=== PATIENT | male | born 1975 | race Caucasian/White ===

== ENCOUNTER 2017-02-12 18:55 | Emergency (ER) | payer MEDICAID ==
[~2017-02-12] VITALS: Ht 172.7 cm; Wt 108.9 kg
--- NOTE | 2017-02-12 19:28 | Urgent Treatment Center Report ---
History of Present Issue Date/Time Seen by Provider 02/12/171916 Visit Reason Pt arrived:Walked Presenting Problem:PT C/O A POSSIBLE ABSCESS ON HIS INNER THIGH THAT HAS AN ODOROUS DRAINAGE COMING FROM IT Location if Accident: Onset of symptoms date/time:/ or onset unknown for:MEDICAL HX UNKNOWN Have you (or family members/close friends) recently traveled outside the [place]? N If Yes, where/when: Have you had exposure to infectious disease within the past month? TB? Other? Specify: Here w/ concerned about an abscess right groin due to redness, drainage and foul odor. Reports "skin tag" to right lateral thigh "for many months". Dx as skin tag by previous PCP, Dr. Lowry in [place]. "He said it wasn't anything to worry about". Has since switched to Skylar Peguero APRN but has not seen her for the "skin tag" or these symptoms. "skin tag" is unchanged but area around it red, painful, w/ "foul smelling wetness" x 4-6 days. Denies fever. "just feels raw there". No treatment prior to arrival. Source patient Exam Limitations no limitations ALLERGIES Coded Allergies: Penicillins (10/08/16) acetaminophen (From DARVOCET-N 100) (10/08/16) aspirin (10/08/16) ibuprofen (From MOTRIN) (10/08/16) latex (10/08/16) naproxen (10/08/16) propoxyphene (From DARVOCET-N 100) (10/08/16) Uncoded Allergies: CLEAR TAPE (I-RASH 05/31/12) Home Medications Active Scripts ACETAMINOPHEN/DIPHENHYDRAMINE (Percogesic 325-12.5 MG Tablet) 1 TAB PO QIDP PRN pain #20 TAB Prov: 10/08/16 Cyclobenzaprine Hcl (Flexeril) 5 MG PO TIDP PRN pain #30 TAB Prov: 10/08/16 Clotrimazole (Athlete's Foot) 1 BENJAMIN TP BID #1 Ref 1 Prov: 08/27/16 Reported Medications Gabapentin (Gabapentin 600MG) 600 MG PO Q8 #90 Escitalopram Oxalate 10 MG PO PRN NERVES #30 LISINOPRIL (Lisinopril) 20 MG PO DAILY ALBUTEROL (Ventolin Hfa) 1 PUFF IH Q6H6 History Medical History General CAD? No Angina: No UT: No Hypertension? Yes Hyperlipidemia? No CHF? No DVT? No PE? No COPD? No Asthma? Yes Anemia? Yes GERD? Yes Gastric ulcers? No GI Bleed? No Hernia? No Thyroid Problems? No Hypothyroidism? No CVA? Yes Seizures? No Diabetes? No Insulin Dependent: No Insulin Pump: No Home FSBS? No Renal Insuffiency? No UTI? No Stones? No BPH? No GB Disease: No Nephritic Syndrome? No Asplenia? No Hepatitis? No Sickle Cell Disease? No Arthritis? Yes Migraines? No Cataracts? No Glaucoma? No MRSA? Yes HIV? No TB? No Anxiety? No Depression? No Cancer? No More? No Immunization HX DT/Tetanus 2011 Surgical Hx Previous Surgery?Y RECTAL CYST X2 JAW SURGERY BUTTOCK-CYSTS Dental Surgery UMBILICAL HERNIA REPAIR LEFT TESTICLE REMOVED Family History Family HX Diabetes Yes Hyperlipidemia Yes Cancer Yes Social History Smoking Hx Smoker: Current Every Day Smoker Tobacco: Yes Type Cigarettes Packs/day < 1 Pack Alcohol Alcohol: No Review of Systems All Other Systems Reviewed and Negative Constitutional see HPI, denies malaise Gastrointestinal denies abdominal pain, denies diarrhea, denies vomiting Genitourinary denies: discharge, dysuria, frequency. Musculoskeletal denies joint pain Skin see HPI Psychiatric/Neurological denies numbness, denies tingling Physical Exam Vital Signs Vital Signs Date Time Temp Pulse Resp B/P Pulse O2 O2 Flow FiO2 Ox Delivery Rate 02/12 1903 97.8 89 18 161/92 98 General Appearance no apparent distress, obese Respiratory Status No: respiratory distress. Cardiovascular no peripheral edema Extremities normal range of motion (BLE) Neurologic alert, no motor/sensory deficits Skin approx 0.5cm black skin tag right lateral thigh, nontender, no drainage; right groin redness, moisture, tenderness consistent w/ wayne; no swelling, no sign of cellulitis Lymphatic no adenopathy (r groin) Medical Decision Making LABS/Meds/Orders Pt receiving controlled substance in ED? No Departure Departure Time of Disposition 1923 Disposition DC Home or Self Care(routine) Clinical Impression Primary Impression: Skin candidiasis Secondary Impressions: Skin tag Condition STABLE Referrals SKYLAR PEGUERO APRN (Family) Schedule follow up appt for later this week or next week to sure improvement but also to discuss removing concerning skin lesion right lateral thigh. If she is unable to remove, discuss referral to dermatology. Patient Instructions DI for Yeast Infection-Skin Additional Instructions Wash w/ mild soapy water Pat dry. Be sure completely dry in skin fold Apply medication powder monitor Follow up with Skylar to ensure resolution but also to discuss removal of skin lesion Discharge Counseling Counseled pt/family regarding diagnosis, medications/RX, home care, follow up needs Prescriptions Current Visit Scripts NYSTATIN (Nystatin Topical Powder 30GM) 1 APPLIC TP TID #1 POW Ref 1 until redness resolved but no more then 7 days without follo w-up at 1935
[2017-02-12 19:40] VITALS: BP 161/92
--- OUTSIDE RECORDS SUMMARY | 2017-02-21 09:37 | External Medical Summary Rpt | CCD ---
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 02 YA OP 33 NA HE 2 N N 10 -3 25 CABRAL 53 04 04 0 14 7 CV 47 VE Ac LF 74 -0 -0 .0 S 83 NG ti AM 60 8- 8- 00 PH 38 US ve ET 27 20 20 AR WA HO 20 11 11 MA MY XA 5 CY ZO # NA LE RA -T 02 YA MP 33 NA 2 N DS TA BL ET 00 04 04 0 12 3 CV 47 VE Ac 40 -0 -0 .0 S 62 NG ti 60 1- 1- 00 PH 57 US ve 35 20 20 AR WA 70 11 11 MA MY 5 CY # NA RA 02 YA 33 NA 2 N 00 03 03 0 8. 4 CV 47 CE Ac 40 -2 -2 00 S 28 LL ti 60 3- 3- 0 PH 00 AR ve 35 20 20 AR OS 70 11 11 MA I 5 CY - # YO RB 02 A 33 PA 2 TR IC K M 00 03 03 0 5. 1 CV 46 SO Ac 40 -0 -0 00 S 57 DA ti 60 5- 5- 0 PH 06 ve 35 20 20 AR NA 70 11 11 MA WA 5 CY R # 02 33 2 GA 59 12 02 5 90 30 CV 43 MA Ac BA 76 -0 -2 .0 S 22 LI ti PE 25 3- 5- 00 PH 00 K ve NT 02 20 20 AR QUINTERO IN 70 10 11 MA MM 1 CY AD 30 # U 0 MG 02 33 CA 2 PS UL E 00 02 02 0 21 7 WA 99 MA Ac 07 -2 -2 .0 LG 38 CS ti 46 4- 4- 00 RE 3 WO ve [address] 01 11 11 S S, 3 #1 20 II 75 I # JA ME 12 S 07 R 5 00 02 02 0 4. 1 WA 99 MA Ac 09 -2 -2 00 LG 38 CS ti 50 4- 4- 0 RE 4 WO ve [address] 00 11 11 S S, 1 #1 20 II 75 I # JA ME 12 S 07 R 5 00 02 02 0 5. 1 CV 45 RA Ac 40 -1 -1 00 S 87 BI ti 60 5- 5- 0 PH 15 EE ve 35 20 20 AR 70 11 11 MA AB 5 CY DO # LR EZ 02 A 33 2 00 02 02 0 12 2 CV 45 MA Ac 09 -0 -0 .0 S 56 CS ti 50 8- 8- 00 PH 72 WO ve [address] 00 11 11 MA S, 1 CY # II I 02 JA 33 ME 2 S R GA 59 12 01 5 90 30 CV 43 MA Ac BA 76 -0 -2 .0 S 22 LI ti PE 25 3- 7- 00 PH 00 K ve NT 02 20 20 AR QUINTERO IN 70 10 11 MA MM 1 CY AD 30 # U 0 MG 02 33 CA 2 PS UL E 00 01 01 0 12 2 CV 45 MA Ac 09 -2 -2 .0 S 05 CS ti 50 5- 5- 00 PH 36 WO ve [address] 00 11 11 MA S, 1 CY # II I 02 JA 33 ME 2 S R 00 12 12 0 40 5 CV 44 MA Ac 09 -3 -3 .0 S 17 CS ti 50 1- 1- 00 PH 95 WO ve [address] 00 10 10 MA S, 1 CY # II I 02 JA 33 ME 2 S R GA 59 12 12 5 90 30 CV 43 MA Ac BA 76 -0 -3 .0 S 22 LI ti PE 25 3- 0- 00 PH 00 K ve NT 02 20 20 AR QUINTERO IN 70 10 10 MA MM 1 CY AD 30 # U 0 MG 02 33 CA 2 PS UL E 00 12 12 0 36 9 CV 43 SO Ac 09 -1 -1 .0 S 76 DA ti 50 9- 9- 00 PH 81 ve 24 20 20 AR NA 00 10 10 MA WA 1 CY R # 02 33 2 00 12 12 0 7. 2 CV 43 WE Ac 40 -0 -0 00 S 34 HR ti 60 6- 6- 0 PH 00 MA ve 35 20 20 AR N 70 10 10 MA II 5 CY I # WI LL 02 IA 33 M 2 E GA 59 12 12 5 90 30 CV 43 MA Ac BA 76 -0 -0 .0 S 22 LI ti PE 25 3- 3- 00 PH 00 K ve NT 02 20 20 AR QUINTERO IN 70 10 10 MA MM 1 CY AD 30 # U 0 MG 02 33 CA 2 PS UL E 59 11 11 0 10 2 KR 64 SO Ac 70 -1 -1 .0 OG 57 DA ti 20 9- 9- 00 ER 62 ve 65 20 20 4 NA 00 10 10 PH WA 1 AR R MA CY # 24 70 9 00 11 11 0 15 5 WA 72 SO Ac 37 -1 -1 .0 L- 21 DA ti 80 6- 6- 00 MA 15 ve 77 20 20 RT 9 NA 19 10 10 WA 3 PH R AR MA CY # 10 05 71 00 11 11 0 15 1 WA 72 SO Ac 09 -1 -1 .0 L- 21 DA ti 50 6- 6- 00 MA 15 ve 24 20 20 RT 8 NA 00 10 10 WA 1 PH R AR MA CY # 10 05 71 00 11 11 0 80 20 CV 42 HU Ac 09 -0 -0 .0 S 36 NT ti 50 9- 9- 00 PH 05 ve 24 20 20 AR TR 00 10 10 MA AV 1 CY IS # A 02 33 2 00 11 11 0 12 2 CV 42 SO Ac 09 -0 -0 .0 S 22 DA ti 50 5- 5- 00 PH 64 ve 24 20 20 AR NA 00 10 10 MA WA 1 CY R # 02 33 2 NA 00 10 10 0 20 10 CV 41 CE Ac WY 09 -2 -2 .0 S 86 LL ti OX 30 6- 6- 00 PH 00 AR ve EN 14 20 20 AR OS 90 10 10 MA I 50 5 CY - 0 # YO MG RB 02 A TA 33 PA BL 2 TR ET IC K M TR 00 07 07 0 20 5 CV 38 SW Ac AM 09 -1 -1 .0 S 36 EE ti AD 30 3- 3- 00 PH 29 NE ve OL 05 20 20 AR Y 80 10 10 MA GR HC 5 CY EG L # OR 50 Y 02 D MG 33 2 TA BL ET CABRAL 00 06 06 0 14 7 WI 33 HU Ac LF 60 -2 -2 .0 LS 80 BE ti AM 35 4- 4- 00 ON 09 R ve ET 78 20 20 JU HO [address] JONAS XA 8 UG A ZO M LE IN -T C MP DS TA BL ET DI 00 04 04 6. 6 CV 55 DA Ac FL - 00 S 26 ti UN 30 3- 3- 0 PH 00 S ve IS 75 20 20 AR WI AL 50 10 10 MA LL 6 CY IA 50 # M 0 S MG 03 01 TA 6 BL ET CE 68 04 04 20 5 CV 35 CH Ac PH 18 -0 -0 .0 S 32 ES ti AL 00 8- 8- 00 PH 73 TN ve EX 12 20 20 AR UT IN 20 10 10 MA 2 CY NM 50 # CH 0 AE MG 02 L 33 CA 2 PS UL E 00 04 04 14 2 CV 35 CH Ac 40 -0 -0 .0 S 32 ES ti 60 8- 8- 00 PH 72 TN ve 35 20 20 AR UT 70 10 10 MA 5 CY NM # CH AE 02 L 33 2 00 03 03 0 15 2 WI 32 WY Ac 59 -2 -3 .0 LS 99 CO ti 10 9- 0- 00 ON 36 FF ve 34 20 [address] RO 5 UG BE RT IN M C 00 03 03 0 9. 3 WI 32 ME Ac 59 -2 -2 00 LS 96 LV ti 10 7- 7- 0 ON 92 IL ve 34 20 20 LE [address] 5 UG DA NI IN EL C WY 00 03 03 0 12 4 WI 32 GR Ac OM 60 -2 -2 0. LS 93 AB ti ET 31 4- 4- 00 ON 18 QUINTERO ve QUINTERO 58 20 20 0 M ZI [address] DA NE 8 UG NA -D M IN SY C RU P WY 50 03 03 0 12 2 WI 32 PE Ac OM 38 -2 -2 0. LS 89 RE ti ET 30 0- 0- 00 ON 88 Z, ve QUINTERO 80 20 20 0 ZI [address] GOMEZ NE 6 UG ., -C OD IN DO EI C NE OS CA SY R RU O P 00 03 03 25 4 CV 34 DA Ac 40 -1 -1 .0 S 36 LE ti 60 1- 1- 00 PH 51 ve 35 20 20 AR II 70 10 10 MA 5 CY TH # OM 02 33 2 OX 00 03 03 0 10 2 WA 22 DA Ac YC 59 -0 -0 .0 L- 17 LE ti OD 10 6- 6- 00 MA 58 ve ON 93 20 20 RT 4 II -A 30 10 10 CE 1 PH TH TA AR OM NM MA NO CY PH # EN 10 7. 04 - 32 5 OX 00 02 02 0 10 2 WA 22 DA Ac YC 59 -2 -2 .0 L- 17 LE ti OD 10 8- 8- 00 MA 56 ve ON 93 20 20 RT 1 II -A 30 10 10 CE 1 PH TH TA AR OM NM MA NO CY PH # EN 10 7. 04 - 32 5 WY 50 02 02 00 12 4 WI 32 CE Ac OM 38 -1 -2 0. LS 54 LL ti ET 30 4- 6- 00 ON 28 AR ve QUINTERO 80 20 20 0 OS ZI [address] Zoë BRAN 6 UG - -C YO OD IN RB EI C A NE PA TR SY IC RU K P M 00 02 02 00 9. 3 WA 44 No Ac 40 -1 -2 00 L- 79 t ti 60 3- 6- 0 MA 37 Av ve 35 20 20 RT 0 ai 70 10 10 la 5 PH bl AR e MA CY #4 93 00 02 02 00 40 10 WI 32 HU Ac 07 -1 -2 .0 LS 51 BE ti 46 1- 6- 00 ON 49 R ve 32 20 20 JU [address] MCDANIEL 3 UG A M IN C CABRAL 53 11 12 00 20 10 WI 31 PE Ac LF 74 -1 -0 .0 LS 63 RE ti AM 60 7- 3- 00 ON 74 Z, ve ET 27 20 20 HO [address] GOMEZ XA 5 UG ., ZO LE IN DO -T C MP OS CA DS R O TA BL ET ME 59 07 07 00 21 6 WI 30 AH Ac TH 74 -1 -3 .0 LS 31 ME ti YL 60 7- 0- 00 ON 56 D ve WY 00 20 20 MU ED [address] QUINTERO NI 3 UG MM SO AD LO IN A NE C 4 MG DO SE PK AC 00 07 07 00 21 7 WI 30 AH Ac YC 09 -1 -3 .0 LS 31 ME ti LO 38 7- 0- 00 ON 55 D ve 94 20 20 MU R [address] QUINTERO 80 1 UG MM 0 AD MG IN A C TA BL ET HY 10 07 07 00 20 5 WI [address] 70 -1 -3 .0 LS 31 ME ti OX 20 7- 0- 00 ON 58 D ve YZ 01 20 20 MU IN [address] QUINTERO E 0 UG MM HC AD L IN A 25 C MG TA BL ET CABRAL 53 06 07 00 20 10 WI 30 DA Ac LF 74 -1 -0 .0 LS 00 LE ti AM 60 8- 2- 00 ON 20 ve ET 27 20 20 II HO [address] HELM 5 UG TH ZO OM LE IN -T C MP DS TA BL ET RI 00 06 06 00 20 10 WA 69 MO Ac FA 18 -0 -1 .0 L- 92 OR ti MP 50 6- 8- 00 MA 21 E ve IN 79 20 20 RT 1 NA 93 09 09 TH 30 0 PH AN 0 AR L MG MA CY CA PS #4 UL 93 E CE 00 06 06 00 20 5 WI 27 CH Ac PH 14 -0 -1 .0 LS 40 ES ti AL 39 9- 8- 00 ON 10 NU ve EX 89 20 20 T IN [address] ROBERTS 5 UG CH 50 AE 0 IN L MG C D CA PS UL E ME 50 05 05 00 12 6 WI 27 WI Ac TR 11 -1 -2 .0 LS 08 CK ti ON 10 07-11- 00 ON 12 ER ve ID 33 20 20 AZ [address] LEDESMA OL 1 UG FF E RE 50 IN Y 0 C MG TA BL ET EN 60 05 05 00 18 5 WI 27 RU Ac DO 95 -0 -2 .0 LS 00 SH ti CE 10 6- 1- 00 ON 55 ve T 70 20 20 NE 7. [address] ALCALA 5- 0 UG C 32 5 IN MG C TA BL ET CI 55 05 05 00 10 5 WI 27 WI Ac WY 11 -1 -2 .0 LS 08 CK ti OF 10 3- 1- 00 ON 13 ER ve LO 12 20 20 XA [address] LEDESMA CI 1 UG FF N RE HC IN Y L C 50 0 MG TA B CABRAL 53 04 05 00 28 7 WI 26 BL Ac LF 74 -2 -0 .0 LS 85 AK ti AM 60 3- 7- 00 ON 85 E ve ET 27 20 20 JA HO [address] ME XA 5 UG S ZO J LE IN -T C MP DS TA BL ET EN 60 04 05 00 15 4 WI 26 RU Ac DO 95 -2 -0 .0 LS 79 SH ti CE 10 0- 7- 00 ON 75 ve T 70 20 20 NE 7. [address] IL 5- 0 UG C 32 5 IN MG C TA BL ET 63 04 05 00 20 5 WI 26 BR Ac 30 -2 -0 .0 LS 85 OD ti 40 3- 7- 00 ON 86 SK ve 65 20 20 Y 70 09 09 KE 5 UG NN ET IN H C M EN 60 04 04 00 15 4 WI 26 RU Ac DO 95 -0 -2 .0 LS 65 SH ti CE 10 9- 3- 00 ON 83 ve T 70 20 20 NE 7. 07 09 09 IL 5- 0 UG C 32 5 IN MG C TA BL ET CL 63 03 04 00 21 7 WA 69 CH Ac IN 30 -2 -0 .0 L- 83 ES ti DA 40 6- 9- 00 MA 89 NU ve MY 69 20 20 RT 8 T CI 31 09 09 NM N 6 PH CH HC AR AE L MA L 30 CY D 0 MG #4 93 CA PS UL E CABRAL 53 04 04 00 28 7 WA 69 AB Ac LF 74 -0 -0 .0 L 63 HERNÁN ti AM 60 3- 9- 00 MA 48 TT ve ET 27 20 20 RT 6 HO 20 09 09 SA XA 5 PH RA ZO AR H LE MA P -T CY MP 10 DS -2 78 TA 3 BL ET 00 04 04 00 15 1 WA 44 RI Ac 40 -0 -0 .0 L 50 CH ti 60 3- 9- 00 MA 86 AR ve 35 20 20 RT 0 DS 70 09 09 ON 5 PH AR TYLER MA SE CY PH 10 -2 78 3 CE 68 04 04 00 20 5 WA 69 AB Ac PH 18 -0 -0 .0 L 63 HERNÁN ti AL 00 3- 9- 00 MA 48 TT ve EX 12 20 20 RT 5 IN 20 09 09 SA 1 PH RA 50 AR H 0 MA P MG CY CA 10 PS -2 UL 78 E 3 00 03 03 00 14 2 WA 44 WI Ac 40 -1 -2 .0 L- 72 LS ti 60 7- 6- 00 MA 63 ON ve 35 20 20 RT 6 70 09 09 RO 5 PH BE AR RT MA C CY #4 93 EN 60 03 03 00 20 3 CV 21 No Ac DO 95 -2 -2 .0 S 89 t ti CE 10 0- 6- 00 PH 80 Av ve T 60 20 20 AR ai 5- 27 09 09 MA la 32 0 CY bl 5 e TA 23 BL 32 ET 00 02 02 00 30 5 WA 44 No Ac 40 -0 -1 .0 L- 83 t ti 60 2- 2- 00 MA 38 Av ve 35 20 20 RT 9 ai 70 09 09 la 5 PH bl AR e MA CY #5 71 00 01 02 01 60 8 CV 19 VA Ac 40 -2 -1 .0 S 88 RG ti 60 0- 2- 00 PH 97 ve 35 20 20 AR H 70 09 09 MA D 5 CY 23 32 00 01 01 00 60 7 CV 19 VA Ac 40 -2 -3 .0 S 88 RG ti 60 0- 0- 00 PH 97 ve 35 20 20 AR H 70 09 09 MA D 5 CY 23 32 55 01 01 00 9. 30 CV 19 RA Ac 11 -0 -1 00 S 43 O ti 10 6- 5- 0 PH 91 PA ve 73 20 20 AR DM 70 09 09 MA A 9 CY G 23 32 00 01 01 00 30 7 CV 19 VA Ac 40 -0 -1 .0 S 51 RG ti 60 8- 5- 00 PH 50 ve 36 20 20 AR H 10 09 09 MA D 1 CY 23 32 OX 00 01 01 00 48 4 CV 19 No Ac YC 40 -0 -1 .0 S 48 t ti OD 60 7- 5- 00 PH 87 Av ve ON 51 20 20 AR ai E- 20 09 09 MA la AC 1 CY bl ET e AM 23 IN 32 OP HE N 5- 32 5 SK 60 01 01 00 30 10 CV 19 RA Ac EL 79 -0 -1 .0 S 43 O ti AX 30 6- 5- 00 PH 94 PA ve IN 13 20 20 AR DM 60 09 09 MA A 80 1 CY G 0 MG 23 32 TA BL ET AC 00 12 01 00 9. 3 WA 44 GA Ac ET 09 -1 -0 00 L- 72 IN ti AM 30 5- 1- 0 MA 89 EY ve IN 15 20 20 RT 2 OP 01 08 09 NM HE 0 PH CH N- AR AE CO MA L D CY S #3 #5 TA 91 BL ET 00 12 01 00 20 10 WA 69 GA Ac 17 -1 -0 .0 L- 99 IN ti 23 5- - 00 MA 89 EY ve 62 20 20 RT 7 64 08 09 NM 8 PH CH AR AE MA L CY S #5 91 DI 00 12 12 00 12 6 CV 18 AH Ac FL 09 -0 -1 .0 S 48 ME ti UN 30 6- 8- 00 PH 87 D ve IS 75 20 20 AR MU AL 50 08 08 MA QUNITERO 6 CY MM 50 AD 0 23 A MG 32 TA BL ET TR 00 12 12 00 12 4 CV 18 AH Ac AM 09 -0 -1 .0 S 48 ME ti AD 30 6- 8- 00 PH 85 D ve OL 05 20 20 AR MU 80 08 08 MA QUINTERO HC 5 CY MM L AD 50 23 A 32 MG TA BL ET 00 12 12 00 21 7 CV 18 AH Ac 07 -0 -1 .0 S 48 ME ti 46 6- 8- 00 PH 86 D ve 32 20 20 AR MU 11 08 08 MA QUINTERO 3 CY MM AD 23 A 32 Vital Signs 04-02-2013 16:10 Name Value Interpretat Reference Comment ion Range BP 123 mm[Hg] Diastolic BP Systolic 181 mm[Hg] Heart 82 /min Rate/Pulse O2% 94 % Respiratory 20 /min Rate 03-13-2013 02:54 Name Value Interpretat Reference Comment ion Range BP 112 mm[Hg] Diastolic BP Systolic 150 mm[Hg] Heart 80 /min Rate/Pulse O2% 98 % Respiratory 16 /min Rate 03-13-2013 02:52 Name Value Interpretat Reference Comment ion Range BP 112 mm[Hg] Diastolic BP Systolic 150 mm[Hg] Heart 80 /min Rate/Pulse O2% 98 % Respiratory 16 /min Rate 03-07-2013 17:05 Name Value Interpretat Reference Comment ion Range Body 98.3 [degF] Temperature BP 94 mm[Hg] Diastolic BP Systolic 147 mm[Hg] Heart 96 /min Rate/Pulse O2% 97 % Respiratory 20 /min Rate 01-30-2013 16:14 Name Value Interpretat Reference Comment ion Range BP 65 mm[Hg] Diastolic BP Systolic 139 mm[Hg] Heart 80 /min Rate/Pulse O2% 98 % Respiratory 19 /min Rate 11-03-2012 01:37 Name Value Interpretat Reference Comment ion Range BP 92 mm[Hg] Diastolic BP Systolic 140 mm[Hg] Heart 89 /min Rate/Pulse O2% 96 % Respiratory 20 /min Rate Results Labs Lab Lab Date Result Refere Interp Status Commen Order Detail nces retati t Range on UA Dipstick Pnl Ur (12-27-2016 22:50) Urobili 0.2 0.2 - complet nogen 017 E.U./dL 1.0 ed Ur Ql 22:50 E.U./dL Strip Nitrite [id number] Negativ complet Ur Ql 017 09 e ed Strip 22:50 Negativ e SCT Leukocy [id number] Negativ complet te 017 09 e ed esteras 22:50 Negativ e Ur Ql e SCT Strip.a uto Prot Ur [id number] Negativ complet Ql 017 09 e ed Strip 22:50 Negativ e SCT Hgb Ur [id number] Negativ complet Ql 017 09 e ed Strip.a 22:50 Negativ uto e SCT Bilirub [id number] Negativ complet Ur Ql 017 09 e ed Strip 22:50 Negativ e SCT Ketones [id number] Negativ complet Ur Ql 017 09 e ed Strip 22:50 Negativ e SCT Glucose [id number] Negativ complet Ur 017 09 e ed Strip-m 22:50 Negativ Cnc e SCT Sp Gr 1.010 1.001-1 complet Ur 017 .030 ed Strip 22:50 pH Ur 6.0 5.0-8.0 complet Strip.a 017 ed uto 22:50 Clarity [id number] Clear complet Ur 017 01 ed 22:50 Clear SCT Color [id number] Yellow, complet Ur 017 09 Straw ed 22:50 Yellow color SCT Comp Metab 1998 Pnl SerPl (12-27-2016 22:38) Anion -3.0 3.0-11. complet Gap3 017 mmol/L 0 ed SerPl-s 22:38 Cnc BUN/Cre 12.5 7.0-25. complet at 017 0 ed SerPl 22:38 Albumin 1.5 1.5-2.5 complet /Glob 017 g/dL ed SerPl 22:38 Globuli 2.9 complet n Ur 017 gm/dL ed Elph-mC 22:38 nc GFR/BSA 108 >60 complet .pred 017 mL/min/ ed SerPl 22:38 1.73 MDRD-Ar VRat Bilirub 0.4 0.3-1.2 complet 017 mg/dL ed SerPl-m 22:38 Cnc ALP 78 U/L 25-100 complet SerPl-c 017 ed Cnc 22:38 AST 35 U/L 0-33 complet SerPl-c 017 ed Cnc 22:38 ALT 66 U/L 7-40 complet SerPl w 017 ed 22:38 P-5'-P- cCnc Albumin 4.40 3.20-4. complet 017 g/dL 80 ed SerPl-m 22:38 Cnc Prot 7.3 5.7-8.2 complet SerPl-m 017 g/dL ed Cnc 22:38 Calcium 9.6 8.7-10. complet 017 mg/dL 4 ed XXX-sCn 22:38 c CO2 30.0 20.0-31 complet SerPl-s 017 mmol/L .0 ed Cnc 22:38 Chlorid 112 99-109 complet e 017 mmol/L ed SerPl-s 22:38 Cnc Potassi 3.6 3.5-5.5 complet um 017 mmol/L ed Bld-sCn 22:38 c Sodium 139 132-146 complet Bld-sCn 017 mmol/L ed c 22:38 Creat 0.80 0.60-1. complet Bld-mCn 017 mg/dL 30 ed c 22:38 BUN 10 9-23 complet Bld-mCn 017 mg/dL ed c 22:38 Glucose 112 70-100 complet 017 mg/dL ed Bld-mCn 22:38 c CBC W Diff pnl,unspecified Bld (12-27-2016 22:38) WBC 10.95 3.50-10 complet nRBC 017 10*3/mm .80 ed cor # 22:38 3 Bld Imm 08-17-2 0.02 0.00-0. complet Granulo 017 10*3/mm 03 ed cytes # 22:38 3 Bld Basophi 08-17-2 0.04 0.00-0. complet ls # 017 10*3/mm 20 ed Bld 22:38 3 Auto Eosinop 08-17-2 0.13 0.00-0. complet hil # 017 10*3/mm 30 ed Bld 22:38 3 Auto Monocyt 08-17-2 0.87 0.00-1. complet es # 017 10*3/mm 00 ed Bld 22:38 3 Auto Lymphoc 08-17-2 2.62 0.60-4. complet ytes # 017 10*3/mm 80 ed Bld 22:38 3 Auto Neutrop 08-17-2 7.27 1.50-8. complet hils # 017 10*3/mm 30 ed Bld 22:38 3 Auto Imm 08-17-2 0.2 % 0.0-0.6 complet Granulo 017 ed cytes/l 22:38 euk NFr Bld Basophi 08-17-2 0.4 % 0.0-1.0 complet ls/leuk 017 ed NFr 22:38 Bld Auto Eosinop 08-17-2 1.2 % 0.0-3.0 complet hil/ru 017 ed k NFr 22:38 Bld Auto Monocyt 08-17-2 7.9 % 0.0-12. complet es/leuk 017 0 ed NFr 22:38 Bld Auto Lymphoc 08-17-2 23.9 % 24.0-44 complet ytes/le 017 .0 ed uk NFr 22:38 Bld Auto Neutrop 08-17-2 66.4 % 41.0-71 complet hils/le 017 .0 ed uk NFr 22:38 Bld Auto Platele 08-17-2 182 150-450 complet t # Bld 017 10*3/mm ed Auto 22:38 3 PMV Bld 08-17-2 10.7 fL 6.0-12. complet Auto 017 0 ed 22:38 RDW RBC 08-17-2 39.5 fl 37.0-54 complet Auto 017 .0 ed 22:38 RDW RBC 12-27-2 12.2 % 11.3-14 complet 017 .5 ed Auto-Rt 22:38 o MCHC 36.5 32.0-36 complet RBC 017 g/dL .0 ed Auto-mC 22:38 nc MCH RBC 32.7 pg 27.0-31 complet Qn 017 .0 ed Auto 22:38 MCV RBC 89.7 fL 80.0-99 complet Auto 017 .0 ed 22:38 Hct VFr 41.7 % 38.9-50 complet Bld 017 .9 ed Auto 22:38 Hgb 15.2 13.1-17 complet Bld-mCn 017 g/dL .5 ed c 22:38 RBC # 12-27-2 4.65 4.20-5. complet Bld 017 10*6/mm 76 ed Auto 22:38 3 Troponin I SerPl-mCnc (12-27-2016 22:38) Troponi < 0.006 <=0.039 complet n I 017 ng/mL ed SerPl-m 22:38 Cnc LPL SerPl-cCnc (12-27-2016 22:38) Lipase 31 U/L 6-51 complet SerPl-c 017 ed Cnc 22:38 STREP SCREEN (RAPID) (04-02-2013 15:40) STREP NEGATIV complet SCREEN 013 E ed (RAPID) 15:40 URINALYSIS/COMPLETE (11-03-2012 01:07) URINE -24-2 YELLOW YELLOW complet COLOR 013 ed 01:07 URINE -24-2 CLEAR CLEAR complet APPEARA 013 ed NCE 01:07 URINE -24-2 NEGATIV NEG complet GLUCOSE 013 E ed - 01:07 DIPSTIC K URINE -24-2 NEGATIV NEG complet BILIRUB 013 E ed IN - 01:07 DIPSTIC K URINE -24-2 NEGATIV NEG complet KETONE 013 E mg/dL ed 01:07 URINE 06-24-2 1.020 1.005-1 complet SPECIFI 013 UNK .030 ed C 01:07 GRAVITY URINE -24-2 NEGATIV NEG complet BLOOD 013 E ed 01:07 URINE 06-24-2 7.0 UNK 5.0-8.5 complet PH 013 ed 01:07 URINE 24-2 NEGATIV NEG complet PROTEIN 013 E mg/dL ed - 01:07 DIPSTIC K URINE 24-2 1.0 NEG complet UROBILI 013 E.U./dL ed NOGEN - 01:07 DIPSTIC K URINE 24-2 NEGATIV NEG complet NITRATE 013 E ed - 01:07 DIPSTIC K URINE 24-2 NEGATIV NEG complet LEUK 013 E ed ESTERAS 01:07 E URINE 24-2 TRACE NONE complet AMORPH 013 ed SEDIMEN 01:07 T Procedures Procedure DOS Code Location Performer Comment DRUG TST G0483 LAB [facility] DEFINITV [address] ID [facility] METH P DAY 22/MORE DR CL DRUG TEST 47769 [facility] PRSMV 7 [facility] CHEMISTRY ANALYZERS CUL BACT [id number] [facility] AEROBIC 7 [facility] ADDL [facility] METHS DEFINITIV E EA ISOL CULTURE 38158 LAB [facility] T[facility] BACTERIAL 7 [place] [facility] HOLDINGS QUANTTATI VE COLONY COUNT URINE CULTURE 49814 LAB T[facility] LAB TIGRE BCT 7 [facility] ISOL&PRSM [facility] HOLDINGS PTV ID ISOLATE EA URINE SUSCEPTIB 82136 LAB T[facility] LAB TIGRE LTY STDY 7 [facility] ANTIMICRB [facility]INGS HOLDINGS IAL MICRO/AGA R DILUTJ RADEX HIP 47909 RAMÓN MLEGAR 7 [facility] UNILATERA INC INC L WITH PELVIS 2-3 VIEWS RADEX 33889 RAMÓN MELGAR SPINE 7 [facility] LUMBOSACR INC INC AL MINIMUM [address] UPPER 24995 [facility] [place] MASTERS EXTREMITY 7 RADIOLOGY W/O CONTRAST MATERIAL RADIOLOGI 30147 RAMÓN MELGAR C 7 [facility] EXAMINATI INC INC ON CHEST SINGLE VIEW FRONTAL RADIOLOGI 36115 RAMÓN MELGAR C 7 [facility] EXAMINATI INC INC ON NECK SOFT TISSUE RADEX 20878 RAMÓN RAMÓN ABDOMEN 1 7 [facility] [place] [address] GRACIE GARCIAS SCROTUM & 7 [facility] CONTENTS SERV FOUNDATIO N DUP-SCAN 35548 GRACIE GARCIAS ARTL RAIZA 7 MED[facility] CORIE ABDL/PEL/ SERV SCROT&/RP FOUNDATIO R ORGN N COM ECG 09134 JENNIFER GRUBER ROUTINE 7 PHYSICIAN ECG PRACTICE W/LEAST L 12 LDS W/I&R LIPID 08409 LAB T[facility]RE LAB TIGRE PANEL 7 [place] [facility] ALBUMIN 17590 LAB T[facility]RE LAB TIGRE URINE 7 [facility]EL [facility]EL MICROALBU [facility]INGS HOLDINGS MIN QUANTIATI VE ALBUMIN 01692 JENNIFER GRUBER URINE 7 PHYSICIAN MICROALBU PRACTICE MIN L SEMIQUANT ITATIVE COMPREHEN 11088 LAB T[facility] LAB TIGRE SIVE 7 [place]EL [place]EL METABOLIC [facility] HOLDINGS PANEL COLLECTIO 09630 JENNIFER GRUBER N VENOUS 7 PHYSICIAN BLOOD PRACTICE VENIPUNCT L URE CREATININ 29923 LAB T[facility] LAB TIGRE E OTHER 7 VEL VEL SOURCE [facility]INGS HOLDINGS RADEX 46363 [facility] [place] TRISH ABDOMEN 1 7 RADIOLOGY ANTEROPOS TERIOR VIEW COMPREHEN 46150 [facility] [place] SIVE 6 [facility] METABOLIC E E PANEL [facility] BLOOD 59235 [facility] COUNT 6 [facility]CAR COMPLETE E E AUTO&AUTO [facility] DIFRNTL WBC ONDANSETR Q0162 [facility] ON 1 MG 6 [facility] ORL NOT E E EXCEED 48 [facility] [address] [facility] LIPASE 6 [facility] [place] [address] [facility] LIPASE 6 [facility] BLOOD 84207 [facility] COUNT 6 [facility] COMPLETE E E AUTO&AUTO [facility] DIFRNTL WBC COMPREHEN 19637 [facility] SIVE 6 [facility]ALTH[facility] METABOLIC E [place] [address] [facility] LACTATE 6 [facility] INJECTION J1100 [facility] 6 [facility]ALTH[facility]ALTHCAR DEXAMETHO E E [facility]ONE [facility] SOD[place] [address] [place] [address] [facility] ABDOMEN & 6 MEDICAL CORIE PELVIS SERV [place] [address] [facility] ABDOMEN & 6 N N PELVIS COMMUNTIY COMMUNTIY W/O HOSPITA HOSPITA CONTRAST MATERIAL DRUG TST G0477 RAMÓN MELGAR PRESUMP;C 6 [facility] PBL BEING INC [place] [address] [facility] [place] [facility] 6 [facility] PATHOLOGY GROSS&CONCHIS ROSCOPIC EXAM ORCHIECTO 10511 [facility] MY SIMPLE 6 [place] KIEL ADULT & SCROTAL/I PED NGUINAL APPROACH ANESTHESI 46064 [place] HAI ROLO A MALE 6 ANESTHESI GENITALIA A GROUP INCL PS OPEN URETHRAL PX ECG 98412 RAMÓN MELGAR ROUTINE 6 [facility] ECG INC INC W/LEAST 12 LDS TRCG ONLY W/O I&R URNLS DIP 74352 RAMÓN MELGAR 6 [facility] STICK/TAB INC INC LET REAGENT AUTO MICROSCOP Y COMPREHEN 19631 RAMÓN MELGAR SIVE 6 [facility] METABOLIC INC INC PANEL BLOOD 20612 RAMÓN MELGAR COUNT 6 [facility] COMPLETE INC INC AUTO&AUTO DIFRNTL WBC ECG 03261 RAMÓN EWING ROUTINE 6 [facility] W/LEAST P 12 LDS I&R ONLY CULTURE 14691 RAMÓN MELGAR BACTERIAL 6 [facility] INC INC QUANTTATI VE COLONY COUNT URINE COLLECTIO 48159 RAMÓN MELGAR N VENOUS 6 [facility] BLOOD INC INC VENIPUNCT URE PROSTATE [id number] [facility] SCREENING [facility] INC ; PSA TEST COLLECTIO 49655 [facility] N VENOUS 6 [facility] [place] [address] RAMÓN MELG[facility] PROLACTIN 6 [place] [address] RAM[facility]N MEL[facility] TESTOSTER 6 [facility] ONE TOTAL INC INC GONADOTRO 35740 [facility] PIN 6 [facility] LUTEINIZI INC INC NG HORMONE DRUG TST G0477 RAMÓN RAMÓN PRESUMP;C 6 [facility] PBL BEING INC INC READ DC OPT OBV ONLY URNLS DIP 80502 [facility] STICK/TAB INC INC LET REAGENT AUTO MICROSCOP Y BLOOD 54143 RAMÓNLENIN MELGAR COUNT 6 [facility] COMPLETE INC INC AUTO&AUTO DIFRNTL WBC COMPREHEN 15519 [facility] SIVE 6 [facility] [place] [address] [facility]N MELG[facility] ABDOMEN & 6 [facility] PELVIS INC INC W/O CONTRAST MATERIAL IMER 01866 [facility] POST-VOID 6 [place] [facility] ING ADULT & RESIDUAL PED URINE&/BL ADDER CAP CYSTO 31374 [facility] CALIBRATI 6 [place] [facility] ON DILAT ADULT & URTL PED STRIX/HEIDI NOSIS SIMPLE 98351 [facility] CYSTOMETR 6 [place] [facility] OGRAM ADULT & PED COMPLEX 96396 [facility] UROFLOMET 6 [facility] RY ADULT & ADULT & PED PED DRUG TST G0477 [facility] LI PRESUMP;C 6 [place] [facility] PBL BEING ADULT & READ DC PED OPT OBV ONLY URNLS DIP 81133 [facility] STICK/TAB INC INC LET REAGENT AUTO MICROSCOP Y ADMN SET A7003 JANEL ISLAS VOL 6 HOME HOME NONFILTR MEDICAL MEDICAL PNEUMAT EQUIPME EQUIPME NEBULIZR DISPBL THERAPEUT 36099 [facility] IC 5 Y Y [facility] TIC/DX INJECTION SUBQ/IM URNLS DIP 83488 [facility] 5 [facility] STICK/TAB INC INC [place] [address] RAM[facility]N MEL[facility] LIPASE 5 [facility] INC INC COMPREHEN 46571 [facility] SIVE 5 [facility] METABOLIC INC INC PANEL BLOOD 21111 RAM[facility]N MELG[facility] COUNT 5 [facility] COMPLETE INC INC AUTO&[place] [address] RAMÓN MELGAR AMYLASE 5 [facility] [place] [address] RAM[facility]EL[facility]BDOMEN & [facility] P[facility] INC W/O CONTRAST MATERIAL RADIOLOGI 14425 SHEBA SUÁREZINEKE C 5 MEDICAL IVANNA EXAMINATI IMAGING ON EYE ASS DETECT FOREIGN BODY 3D 26919 [facility]BA [place] RENDERING 5 MEDICAL MARIO W/INTERP IMAGING & ASS POSTPROCE SS SUPERVISI ON MRI 25642 SHEBA [place] SPINAL 5 MEDICAL MARIO CANAL IMAGING LUMBAR ASS W/O CONTRAST MATERIAL RADEX 91833 [facility]N MEL[facility] ORBITS [facility] COM[facility] INC MINIMUM 4 VIEWS HEMOGLOBI 49964 RAMÓN MELG[facility] N [facility] GLYCOSYLA INC INC THERESA A1C BASIC 24793 RAM[facility]N MELGAR METABOLIC 5 [facility] PANEL INC INC CALCIUM TOTAL COLLECTIO 26441 RAM[facility]N MELGAR N VENOUS [facility] [place] [address] RAMÓN MELGAR FREE 5 [facility] [place] [address] RAMÓN MELG[facility] THYROID [facility] STIMULATI INC INC NG HORMONE TSH RADEX 55144 SHEBA [place] FINGR 5 MEDICAL MARIO MINIMUM 2 IMAGING VIEWS ASS RADIOLOGI 31598 SHEBA [place] C 4 MEDICAL MARIO EXAMINATI IMAGING [place] [address] SHEBA [place] ABDOMEN & 4 MEDICAL MARIO PELVIS IMAGING W/O ASS CONTRAST MATERIAL RADIOLOGI 42135 SHEBA [place] C 4 MEDICAL MARIO EXAMINATI IMAGING ON PELVIS ASS 1/2 VIEWS RADEX 68789 SHEBA [place] SPINE 4 MEDICAL MARIO LUMBOSACR IMAGING AL ASS MINIMUM 4 VIEWS RADIOLOGI 44011 SHEBA [place] C EXAM 4 MEDICAL MARIO CHEST 2 IMAGING VIEWS ASS FRONTAL&L ATERAL KNEE L1830 [employer] ORTHOSIS 4 IMMOBLIZE R CANVAS LONGTUDNL PREFAB RADEX 63750 RAMÓN MELGAR SHOULDER 4 [facility] COMPLETE INC INC MINIMUM 2 VIEWS INCISION 83895 KANDI MILES & 4 [place] [address] SIMI [place]TH ABDOMEN & 4 PELVIS W/O CONTRAST MATERIAL ADMN SET A7003 YOUR YOUR SM VOL 4 PHARMACY PHARMACY [facility] PNEUMAT NEBULIZR DISPBL NEBULIZER E0570 JANEL ISLAS WITH 4 HOME HOME COMPRESSO MEDICAL MEDICAL R EQUIPME EQUIPME LIPID 85903 RAMÓN MELGAR PANEL 3 [place] [address] RAMÓN MELGAR THYROXINE 3 [facility] TOTAL INC INC HEMOGLOBI 61255 RAMÓN MELGAR N 3 [facility] GLYCOSYLA INC INC THERESA A1C BLOOD 00078 RAMÓN MELG[facility] COUNT 3 [facility] COMPLETE INC INC AUTO&AUTO DIFRNTL WBC COMPREHEN 87129 RAMÓN MELGAR SIVE 3 [facility] [place] [address] RAMÓN MELGAR THYROID 3 [facility] STIMULATI INC INC NG HORMONE TSH RADEX 36321 KOSTELIC KOSTELIC SPINE 3 VINICIO VINICIO LUMBOSACR AL 2/3 VIEWS SIMPLE 49226 YARIEL RODRIGUEZ MAR REPAIR 3 EMERGENCY SCALP/NEC SERVICES K/AX/MAIRA T/TRUNK 2.5CM/< [place] [address] SIMI [place] ABDOMEN & 3 PELVIS W/O CONTRAST MATERIAL URNLS DIP 78721 [facility] MEL[facility] 3 [facility] STICK/TAB INC INC LET REAGENT AUTO MICROSCOP Y RADIOLOGI 96919 MARIBELL REYNA C C EXAM 2 CHEST 2 VIEWS FRONTAL&L ATERAL RADIOLOGI 24635 [facility] [place] MASTERS C EXAM 2 RADIOLOGY JOSHUA CHEST 2 VIEWS FRONTAL&L ATERAL RADEX 47874 [facility] [place] JAY HAND 2 RADIOLOGY LIZA MINIMUM 3 VIEWS RADEX 46366 [facility] [place] TRISH HAND 2 RADIOLOGY RHO MINIMUM 3 VIEWS RADEX TOE 40018 SHEBA SEGALUTCHER MINIMUM 2 MEDICAL MARIO [address] [place] [address] [facility] [place] ABDOMEN & 2 RADIOLOGY RAY PELVIS W/O CONTRAST MATERIAL 3D 07255 RAMÓN MELGAR RENDERING 2 [facility] INC INC W/INTERP& [place] [address] RAMÓN MELGAR ABDOMEN & 2 [facility] PELVIS INC INC W/O CONTRAST MATERIAL URNLS DIP 28216 RAMÓN MELGAR 2 [facility] STICK/TAB INC INC LET REAGENT AUTO MICROSCOP Y BASIC 90986 RAMÓN MELGAR METABOLIC 2 [facility] PANEL INC INC CALCIUM TOTAL BLOOD 96991 RAMÓN MELG[facility] COUNT 2 [facility] COMPLETE INC INC AUTO&AUTO DIFRNTL WBC RADIOLOGI 53050 [facility] [place] OMAR MAT C 2 RADIOLOGY EXAMINATI ON KNEE 3 [place] [address] [facility] [place] OMAR MAT SCROTUM & 2 RADIOLOGY CONTENTS DUP-SCAN 36148 [facility] [place] SIMI [place] ARTL RAIZA 2 RADIOLOGY ABDL/PEL/ SCROT&/RP R ORGN LMT RADEX 78527 [facility] [place] OMAR GE FINGR 2 RADIOLOGY MINIMUM 2 VIEWS RADEX 33920 [place] GERALD JAM HAND 2 MEDICAL MINIMUM 3 SERV VIEWS FOUNDATIO RADEX 99574 [facility] [place] SCALF CLEMENTINE HAND 2 RADIOLOGY MINIMUM 3 [place] [address] RAMÓN MELGAR SCROTUM & 2 [facility] CONTENTS INC INC URNLS DIP 59277 RAMÓN MELGAR 2 [facility] STICK/TAB INC INC LET REAGENT AUTO MICROSCOP Y RADEX 80286 [place] SPINE 2 [facility] AL 2/[address] LUMBAR 27263 [place] MERHAR SPINE 2 MEDICAL GAR W/O SERV CONTRAST FOUNDATIO MATERIAL RADEX 84470 [facility] [place] TRISH HAND 2 RADIOLOGY RHO MINIMUM 3 VIEWS SIMPLE 81659 CHACON CHACON REPAIR 2 JULIO JULIO SCALP/NEC K/AX/MAIRA T/TRUNK 2.5CM/< INCISION 02167 RAMÓN MELGAR & 2 [facility] DRAINAGE INC INC ABSCESS SIMPLE/SI NGLE INCISION 92205 YARIEL MATTHEW & 2 EMERGENCY CONCHIS DRAINAGE SERVICES ABSCESS COMPLICAT ED/MULTIP LE CUL BACT 50087 RAMÓN MELGAR XCPT 2 [facility] URINE INC INC BLOOD/STO OL AEROBIC ISOL CUL BACT 78534 RAMÓN MELG[facility] AEROBIC 2 [facility] ADDL INC INC METHS DEFINITIV E EA ISOL SUSCEPTIB 59976 RAMÓN MELGAR LTY STDY 2 [facility] ANTIMICRB INC INC IAL MICRO/AGA R DILUTJ RADEX 19819 [facility] SPINE 2 N N LUMBOSACR COMMUNTIY COMMUNTIY AL 2/3 HOSPITA HOSPITA VIEWS RADEX 77196 [place] CELE SPINE 2 MEDICAL MARIO LUMBOSACR IMAGING AL ASS MINIMUM 4 VIEWS RADEX 33586 [facility] [place] OMAR MAT FINGR 2 RADIOLOGY MINIMUM 2 VIEWS APPLICATI 15043 DANNIELLE SPICER ON FINGER 1 ABD ABD SPLINT DYNAMIC WRIST L3807 TOBIAS [facility] HAND 1 SHARI [place] FINGR ORTHOPAED ORTHOS IC W/O JNT PREFAB CSTM FIT RADEX 01724 [facility] [place] OMAR MAT HAND 1 RADIOLOGY MINIMUM 3 VIEWS RADEX 00680 [place] DISANTIS HAND 1 MEDICAL REMINGTON MINIMUM 3 SERV VIEWS FOUNDATIO RADEX 90860 [place] CELE ANKLE 1 MEDICAL MRAIO COMPLETE IMAGING MINIMUM 3 ASS VIEWS CHIROPRAC 26260 ESCALANTE JULIO ESCALANTE JULIO TIC 1 MANIPLTV TX EXTRASPIN AL 1/> REGION MANUAL 35563 ESCALANTE JULIO ESCALANTE JULIO THERAPY 1 TQS 1/> REGIONS EACH 15 MINUTES APPLICATI 17720 ESCALANTE JULIO ESCALANTE JULIO ON 1 MODALITY 1/> AREAS HOT/COLD PACKS THERAPEUT 27181 ESCALANTE JULIO ESCALANTE JULIO IC PX 1/> 1 AREAS EACH 15 MIN EXERCISES APPL 42145 ESCALANTE JULIO ESCALANTE JULIO MODALITY 1 1/> AREAS ELEC STIMJ UNATTENDE D APPL 78685 ESCALANTE JULIO ESCALANTE JULIO MODALITY 1 1/> AREAS TRACTION MECHANICA L CHIROPRAC 20222 ESCALANTE JULIO ESCALANTE JULIO TIC 1 MANIPULAT [place] SPINAL 3-4 REGIONS MANUAL 64300 ESCALANTE JULIO ESCALANTE JULIO THERAPY 1 TQS 1/> REGIONS EACH 15 MINUTES APPL 63077 ESCALANTE JULIO ESCALANTE JULIO MODALITY 1 1/> AREAS TRACTION MECHANICA L CHIROPRAC 82005 ESCALANTE JULIO ESCALANTE JULIO TIC 1 MANIPULAT [place] SPINAL 3-4 REGIONS APPLICATI 64730 ESCALANTE JULIO ESCALANTE JULIO ON 1 MODALITY 1/> AREAS HOT/COLD PACKS THERAPEUT 35255 ESCALANTE JULIO ESCALANTE JULIO IC PX 1/> 1 AREAS EACH 15 MIN EXERCISES CHIROPRAC 05172 ESCALANTE JULIO ESCALANTE JULIO TIC 1 MANIPLTV TX EXTRASPIN AL 1/> REGION APPL 16638 ESCALANTE JULIO ESCALANTE JULIO MODALITY 1 1/> AREAS ELEC STIMJ UNATTENDE D CHIROPRAC 72917 ESCALANTE JULIO ESCALANTE JULIO TIC 1 MANIPLTV TX EXTRASPIN AL 1/> REGION MANUAL 84081 ESCALANTE JULIO ESCALANTE JULIO THERAPY 1 TQS 1/> REGIONS EACH 15 MINUTES APPLICATI 06708 ESCALANTE JULIO ESCALANTE JULIO ON 1 MODALITY 1/> AREAS HOT/COLD PACKS THERAPEUT 10826 ESCALANTE JULIO ESCALANTE JULIO IC PX 1/> 1 AREAS EACH 15 MIN EXERCISES APPL 79657 ESCALANTE JULIO ESCALANTE JULIO MODALITY 1 1/> AREAS TRACTION MECHANICA L APPL 65381 ESCALANTE JULIO ESCALANTE JULIO MODALITY 1 1/> AREAS ELEC STIMJ UNATTENDE D CHIROPRAC 91917 ESCALANTE JULIO ESCALANTE JULIO TIC 1 MANIPULAT [place] SPINAL 3-4 REGIONS MANUAL 46014 ESCALANTE JULIO ESCALANTE JULIO THERAPY 1 TQS 1/> REGIONS EACH 15 MINUTES APPL 81547 ESCALANTE JULIO ESCALANTE JULIO MODALITY 1 1/> AREAS TRACTION MECHANICA L CHIROPRAC 09998 ESCALANTE JULIO ESCALANTE JULIO TIC 1 MANIPULAT [place] SPINAL 3-4 REGIONS APPLICATI 98490 ESCALANTE JULIO ESCALANTE JULIO ON 1 MODALITY 1/> AREAS HOT/COLD PACKS THERAPEUT 88663 ESCALANTE JULIO ESCALANTE JULIO IC PX 1/> 1 AREAS EACH 15 MIN EXERCISES CHIROPRAC 50709 ESCALANTE JULIO ESCALANTE JULIO TIC 1 MANIPLTV TX EXTRASPIN AL 1/> REGION APPL 10842 ESCALANTE JULIO ESCALANTE JULIO MODALITY 1 1/> AREAS ELEC STIMJ UNATTENDE D APPL 22784 ESCALANTE JULIO ESCALANTE JULIO MODALITY 1 1/> AREAS ELEC STIMJ UNATTENDE D CHIROPRAC 32937 ESCALANTE JULIO ESCALANTE JULIO TIC 1 MANIPLTV TX EXTRASPIN AL 1/> REGION APPLICATI 80055 ESCALANTE JULIO ESCALANTE JULIO ON 1 MODALITY 1/> AREAS HOT/COLD PACKS THERAPEUT 58883 ESCALANTE JULIO ESCALANTE JULIO IC PX 1/> 1 AREAS EACH 15 MIN EXERCISES APPL 15770 ESCALANTE JULIO ESCALANTE JULIO MODALITY 1 1/> AREAS TRACTION MECHANICA L MANUAL 60754 ESCALANTE JULIO ESCALANTE JULIO THERAPY 1 TQS 1/> REGIONS EACH 15 MINUTES CHIROPRAC 50451 ESCALANTE JULIO ESCALANTE JULIO TIC 1 MANIPULAT [place] SPINAL 3-4 REGIONS CHIROPRAC 56564 ESCALANTE JULIO ESCALANTE JULIO TIC 1 MANIPULAT [place] SPINAL 3-4 REGIONS APPL 04049 ESCALANTE JULIO ESCALANTE JULIO MODALITY 1 1/> AREAS TRACTION MECHANICA L APPL 11056 ESCALANTE JULIO ESCALANTE JULIO MODALITY 1 1/> AREAS ELEC STIMJ UNATTENDE D THERAPEUT 81142 ESCALANTE JULIO ESCALANTE JULIO IC PX 1/> 1 AREAS EACH 15 MIN EXERCISES APPLICATI 11621 ESCALANTE JULIO ESCALANTE JULIO ON 1 MODALITY 1/> AREAS HOT/COLD PACKS MANUAL 75839 ESCALANTE JULIO ESCALANTE JULIO THERAPY 1 TQS 1/> REGIONS EACH 15 MINUTES CHIROPRAC 55425 ESCALANTE JULIO ESCALANTE JULIO TIC 1 MANIPLTV TX EXTRASPIN AL 1/> REGION CHIROPRAC 36940 ESCALANTE JULIO ESCALANTE JULIO TIC 1 MANIPLTV TX EXTRASPIN AL 1/> REGION MANUAL 47020 ESCALANTE JULIO ESCALANTE JULIO THERAPY 1 TQS 1/> REGIONS EACH 15 MINUTES APPLICATI 78431 ESCALANTE JULIO ESCALANTE JULIO ON 1 MODALITY 1/> AREAS HOT/COLD PACKS THERAPEUT 11998 ESCALANTE JULIO ESCALANTE JULIO IC PX 1/> 1 AREAS EACH 15 MIN EXERCISES APPL 24002 ESCALANTE JULIO ESCALANTE JULIO MODALITY 1 1/> AREAS ELEC STIMJ UNATTENDE D APPL 77466 ESCALANTE JULIO ESCALANTE JULIO MODALITY 1 1/> AREAS TRACTION MECHANICA L CHIROPRA 68389 ESCALANTE JULIO ESCALANTE JULIO TIC 1 MANIPULAT [place] SPINAL 3-4 REGIONS CHIROPRA 82899 ESCALANTE JULIO ESCALANTE JULIO TIC 1 MANIPULAT [place] SPINAL 3-4 REGIONS APPL 38151 ESCALANTE JULIO ESCALANTE JULIO MODALITY 1 1/> AREAS TRACTION MECHANICA L APPL 34978 ESCALANTE JULIO ESCALANTE JULIO MODALITY 1 1/> AREAS ELEC STIMJ UNATTENDE D THERAPEUT 54196 ESCALANTE JULIO ESCALANTE JULIO IC PX 1/> 1 AREAS EACH 15 MIN EXERCISES APPLICATI 99935 ESCALANTE JULIO ESCALANTE JULIO ON 1 MODALITY 1/> AREAS HOT/COLD PACKS MANUAL 60354 ESCALANTE JULIO ESCALANTE JULIO THERAPY 1 TQS 1/> REGIONS EACH 15 MINUTES CHIROPRA 05773 ESCALANTE JULIO ESCALANTE JULIO TIC 1 MANIPLTV TX EXTRASPIN AL 1/> REGION CHIROPRAC 22537 ESCALANTE JULIO ESCALANTE JULIO TIC 1 MANIPLTV TX EXTRASPIN AL 1/> REGION APPL 23189 ESCALANTE JULIO ESCALANTE JULIO MODALITY 1 1/> AREAS ELEC STIMJ UNATTENDE D THERAPEUT 65969 ESCALANTE JULIO ESCALANTE JULIO IC PX 1/> 1 AREAS EACH 15 MIN EXERCISES APPLICATI 11896 ESCALANTE JULIO ESCALANTE JULIO ON 1 MODALITY 1/> AREAS HOT/COLD PACKS APPL 40728 ESCALANTE JULIO ESCALANTE JULIO MODALITY 1 1/> AREAS TRACTION MECHANICA L CHIROPRAC 92709 ESCALANTE JULIO ESCALANTE JULIO TIC 1 MANIPULAT [place] SPINAL 3-4 REGIONS MANUAL 88486 ESCALANTE JULIO ESCALANTE JULIO THERAPY 1 TQS 1/> REGIONS EACH 15 MINUTES MANUAL 35352 ESCALANTE JULIO ESCALANTE JULIO THERAPY 1 TQS 1/> REGIONS EACH 15 MINUTES CHIROPRAC 81004 ESCALANTE JULIO ESCALANTE JULIO TIC 1 MANIPULAT [place] SPINAL 3-4 REGIONS APPL 51473 ESCALANTE JULIO ESCALANTE JULIO MODALITY 1 1/> AREAS TRACTION MECHANICA L APPLICATI 50518 ESCALANTE JULIO ESCALANTE JULIO ON 1 MODALITY 1/> AREAS HOT/COLD PACKS THERAPEUT 78930 ESCALANTE JULIO ESCALANTE JULIO IC PX 1/> 1 AREAS EACH 15 MIN EXERCISES APPL 30984 ESCALANTE JULIO ESCALANTE JULIO MODALITY 1 1/> AREAS ELEC STIMJ UNATTENDE D CHIROPRAC 70235 ESCALANTE JULIO ESCALANTE JULIO TIC 1 MANIPLTV TX EXTRASPIN AL 1/> REGION CHIROPRAC 95158 ESCALANTE JULIO ESCALANTE JULIO TIC 1 MANIPLTV TX EXTRASPIN AL 1/> REGION APPL 88897 ESCALANTE JULIO ESCALANTE JULIO MODALITY 1 1/> AREAS ELEC STIMJ UNATTENDE D THERAPEUT 71515 ESCALANTE JULIO ESCALANTE JULIO IC PX 1/> 1 AREAS EACH 15 MIN EXERCISES APPLICATI 18848 ESCALANTE JULIO ESCALANTE JULIO ON 1 MODALITY 1/> AREAS HOT/COLD PACKS APPL 79517 ESCALANTE JULIO ESCALANTE JULIO MODALITY 1 1/> AREAS TRACTION MECHANICA L CHIROPRAC 60149 ESCALANTE JULIO ESCALANTE JULIO TIC 1 MANIPULAT [place] SPINAL 3-4 REGIONS MANUAL 66598 ESCALANTE JULIO ESCALANTE JULIO THERAPY 1 TQS 1/> REGIONS EACH 15 MINUTES CHIROPRAC 73258 ESCALANTE JULIO ESCALANTE JULIO TIC 1 MANIPULAT [place] SPINAL 3-4 REGIONS APPL 22567 ESCALANTE JULIO ESCALANTE JULIO MODALITY 1 1/> AREAS TRACTION MECHANICA L APPL 08689 ESCALANTE JULIO ESCALANTE JULIO MODALITY 1 1/> AREAS ELEC STIMJ UNATTENDE D APPLICATI 67073 ESCALANTE JULIO ESCALANTE JULIO ON 1 MODALITY 1/> AREAS HOT/COLD PACKS THERAPEUT 47296 ESCALANTE JULIO ESCALANTE JULIO IC PX 1/> 1 AREAS EACH 15 MIN EXERCISES MANUAL 10824 ESCALANTE JULIO ESCALANTE JULIO THERAPY 1 TQS 1/> REGIONS EACH 15 MINUTES CHIROPRAC 40535 ESCALANTE JULIO ESCALANTE JULIO TIC 1 MANIPLTV TX EXTRASPIN AL 1/> REGION CHIROPRA 59230 ESCALANTE JULIO ESCALANTE JULIO TIC 1 MANIPLTV TX EXTRASPIN AL 1/> REGION MANUAL 53542 ESCALANTE JULIO ESCALANTE JULIO THERAPY 1 TQS 1/> REGIONS EACH 15 MINUTES THERAPEUT 76012 ESCALANTE JULIO ESCALANTE JULIO IC PX 1/> 1 AREAS EACH 15 MIN EXERCISES APPLICATI 85264 ESCALANTE JULIO ESCALANTE JULIO ON 1 MODALITY 1/> AREAS HOT/COLD PACKS APPL 66096 ESCALANTE JULIO ESCALANTE JULIO MODALITY 1 1/> AREAS ELEC STIMJ UNATTENDE D APPL 58871 ESCALANTE JULIO ESCALANTE JULIO MODALITY 1 1/> AREAS TRACTION MECHANICA L CHIROPRAC 99055 ESCALANTE JULIO ESCALANTE JULIO TIC 1 MANIPULAT [place] SPINAL 3-4 REGIONS CHIROPRAC 04381 ESCALANTE JULIO ESCALANTE JULIO TIC 1 MANIPULAT [place] SPINAL 3-4 REGIONS APPL 44761 ESCALANTE JULIO ESCALANTE JULIO MODALITY 1 1/> AREAS TRACTION MECHANICA L APPL 24525 ESCALANTE JULIO ESCALANTE JULIO MODALITY 1 1/> AREAS ELEC STIMJ UNATTENDE D APPLICATI 79384 ESCALANTE JULIO ESCALANTE JUILO ON 1 MODALITY 1/> AREAS HOT/COLD PACKS THERAPEUT 34572 ESCALANTE JULIO ESCALANTE JULIO IC PX 1/> 1 AREAS EACH 15 MIN EXERCISES MANUAL 72744 ESCALANTE JULIO ESCALANTE JULIO THERAPY 1 TQS 1/> REGIONS EACH 15 MINUTES CHIROPRAC 98057 ESCALANTE JULIO ESCALANTE JULIO TIC 1 MANIPLTV TX EXTRASPIN AL 1/> REGION CHIROPRAC 62067 ESCALANTE JULIO ESCALANTE JULIO TIC 1 MANIPLTV TX EXTRASPIN AL 1/> REGION APPL 69928 ESCALANTE JULIO ESCALANTE JULIO MODALITY 1 1/> AREAS ELEC STIMJ UNATTENDE D THERAPEUT 78718 ESCALANTE JULIO ESCALANTE JULIO IC PX 1/> 1 AREAS EACH 15 MIN EXERCISES APPLICATI 87483 ESCALANTE JULIO ESCALANTE JULIO ON 1 MODALITY 1/> AREAS HOT/COLD PACKS APPL 77122 ESCALANTE JULIO ESCALANTE JULIO MODALITY 1 1/> AREAS TRACTION MECHANICA L CHIROPRAC 88973 ESCALANTE JULIO ESCALANTE JULIO TIC 1 MANIPULAT [place] SPINAL 3-4 REGIONS MANUAL 35870 ESCALANTE JULIO ESCALANTE JULIO THERAPY 1 TQS 1/> REGIONS EACH 15 MINUTES MANUAL 55771 ESCALANTE JULIO ESCALANTE JULIO THERAPY 1 TQS 1/> REGIONS EACH 15 MINUTES CHIROPRA 30034 ESCALANTE JULIO ESCALANTE JULIO TIC 1 MANIPULAT [place] SPINAL 3-4 REGIONS APPL 63064 ESCALANTE JULIO ESCALANTE JULIO MODALITY 1 1/> AREAS TRACTION MECHANICA L APPLICATI 17245 ESCALANTE JULIO ESCALANTE JULIO ON 1 MODALITY 1/> AREAS HOT/COLD PACKS THERAPEUT 39155 ESCALANTE JULIO ESCALANTE JULIO IC PX 1/> 1 AREAS EACH 15 MIN EXERCISES APPL 58675 ESCALANTE JULIO ESCALANTE JULIO MODALITY 1 1/> AREAS ELEC STIMJ UNATTENDE D CHIROPRAC 03850 ESCALANTE JULIO ESCALANTE JULIO TIC 1 MANIPLTV TX EXTRASPIN AL 1/> REGION CHIROPRAC 47591 ESCALANTE JULIO ESCALANTE JULIO TIC 1 MANIPLTV TX EXTRASPIN AL 1/> REGION APPL 61209 ESCALANTE JULIO ESCALANTE JULIO MODALITY 1 1/> AREAS ELEC STIMJ UNATTENDE D THERAPEUT 68148 ESCALANTE JULIO ESCALANTE JULIO IC PX 1/> 1 AREAS EACH 15 MIN EXERCISES APPLICATI 92513 ESCALANTE JULIO ESCALANTE JULIO ON 1 MODALITY 1/> AREAS HOT/COLD PACKS APPL 45127 ESCALANTE JULIO ESCALANTE JULIO MODALITY 1 1/> AREAS TRACTION MECHANICA L CHIROPRAC 83546 ESCALANTE JULIO ESCALANTE JULIO TIC 1 MANIPULAT [place] SPINAL 3-4 REGIONS MANUAL 75241 ESCALANTE JULIO ESCALANTE JULIO THERAPY 1 TQS 1/> REGIONS EACH 15 MINUTES MANUAL 24459 ESCALANTE JULIO ESCALANTE JULIO THERAPY 1 TQS 1/> REGIONS EACH 15 MINUTES CHIROPRA 72717 ESCALANTE JULIO ESCALANTE JULIO TIC 1 MANIPULAT [place] SPINAL 3-4 REGIONS APPL 51110 ESCALANTE JULIO ESCALANTE JULIO MODALITY 1 1/> AREAS TRACTION MECHANICA L APPLICATI 86664 ESCALANTE JULIO ESCALANTE JULIO ON 1 MODALITY 1/> AREAS HOT/COLD PACKS THERAPEUT 52345 ESCALANTE JULIO ESCALANTE JULIO IC PX 1/> 1 AREAS EACH 15 MIN EXERCISES APPL 23027 ESCALANTE JULIO ESCALANTE JULIO MODALITY 1 1/> AREAS ELEC STIMJ UNATTENDE D CHIROPRAC 08629 ESCALANTE JULIO ESCALANTE JULIO TIC 1 MANIPLTV TX EXTRASPIN AL 1/> REGION CHIROPRAC 18000 ESCALANTE JULIO ESCALANTE JULIO TIC 1 MANIPLTV TX EXTRASPIN AL 1/> REGION APPL 18215 ESCALANTE JULIO ESCALANTE JULIO MODALITY 1 1/> AREAS ELEC STIMJ UNATTENDE D RADEX 83598 [place] GERALD JAM FOOT 1 MEDICAL COMPLETE SERV MINIMUM 3 FOUNDATIO VIEWS THERAPEUT 36733 ESCALANTE JULIO ESCALANTE JULIO IC PX 1/> 1 AREAS EACH 15 MIN EXERCISES APPLICATI 93048 ESCALANTE JULIO ESCALANTE JULIO ON 1 MODALITY 1/> AREAS HOT/COLD PACKS APPL 59105 ESCALANTE JULIO ESCALANTE JULIO MODALITY 1 1/> AREAS TRACTION MECHANICA L CHIROPRAC 54304 ESCALANTE JULIO ESCALANTE JULIO TIC 1 MANIPULAT [place] SPINAL 3-4 REGIONS MANUAL 28370 ESCALANTE JULIO ESCALANTE JULIO THERAPY 1 TQS 1/> REGIONS EACH 15 MINUTES RADEX 83874 [facility] [place] TRISH FOOT 1 RADIOLOGY RHO COMPLETE MINIMUM 3 VIEWS APPL 47733 ESCALANTE JULIO ESCALANTE JULIO MODALITY 1 1/> AREAS ELEC STIMJ UNATTENDE D CHIROPRAC 32327 ESCALANTE JULIO ESCALANTE JULIO TIC 1 MANIPLTV TX EXTRASPIN AL 1/> REGION MANUAL 10624 ESCALANTE JULIO ESCALANTE JULIO THERAPY 1 TQS 1/> REGIONS EACH 15 MINUTES CHIROPRAC 04044 ESCALANTE JULIO ESCALANTE JULIO TIC 1 MANIPULAT [place] SPINAL 3-4 REGIONS APPL 32496 ESCALANTE JULIO ESCALANTE JULIO MODALITY 1 1/> AREAS TRACTION MECHANICA L APPLICATI 11617 ESCALANTE JULIO ESCALANTE JULIO ON 1 MODALITY 1/> AREAS HOT/COLD PACKS THERAPEUT 80064 ESCALANTE JULIO ESCALANTE JULIO IC PX 1/> 1 AREAS EACH 15 MIN EXERCISES THERAPEUT 80445 ESCALANTE JULIO ESCALANTE JULIO IC PX 1/> 1 AREAS EACH 15 MIN EXERCISES APPLICATI 17737 ESCALANTE JULIO ESCALANTE JULIO ON 1 MODALITY 1/> AREAS HOT/COLD PACKS APPL 83167 ESCALANTE JULIO ESCALANTE JULIO MODALITY 1 1/> AREAS TRACTION MECHANICA L CHIROPRAC 49564 ESCALANTE JULIO ESCALANTE JULIO TIC 1 MANIPULAT [place] SPINAL 3-4 REGIONS MANUAL 82542 ESCALANTE JULIO ESCALANTE JULIO THERAPY 1 TQS 1/> REGIONS EACH 15 MINUTES CHIROPRAC 60918 ESCALANTE JULIO ESCALANTE JULIO TIC 1 MANIPLTV TX EXTRASPIN AL 1/> REGION APPL 07605 ESCALANTE JULIO ESCALANTE JULIO MODALITY 1 1/> AREAS ELEC STIMJ UNATTENDE D APPL 58925 ESCALANTE JULIO ESCALANTE JULIO MODALITY 1 1/> AREAS ELEC STIMJ UNATTENDE D CHIROPRAC 24052 ESCALANTE JULIO ESCALANTE JULIO TIC 1 MANIPLTV TX EXTRASPIN AL 1/> REGION MANUAL 93667 ESCALANTE JULIO ESCALANTE JULIO THERAPY 1 TQS 1/> REGIONS EACH 15 MINUTES CHIROPRAC 80067 ESCALANTE JULIO ESCALANTE JULIO TIC 1 MANIPULAT [place] SPINAL 3-4 REGIONS APPL 73050 ESCALANTE JULIO ESCALANTE JULIO MODALITY 1 1/> AREAS TRACTION MECHANICA L APPLICATI 96921 ESCALANTE JULIO ESCALANTE JULIO ON 1 MODALITY 1/> AREAS HOT/COLD PACKS THERAPEUT 22474 ESCALANTE JULIO ESCALANTE JULIO IC PX 1/> 1 AREAS EACH 15 MIN EXERCISES RADEX 31541 [facility] [place] KOSTELIC SPINE 1 RADIOLOGY VINICIO LUMBOSACR AL 2/3 VIEWS CHIROPRAC 10955 ESCALANTE JULIO ESCALANTE JULIO TIC 1 MANIPLTV TX EXTRASPIN AL 1/> REGION MANUAL 35824 ESCALANTE JULIO ESCALANTE JULIO THERAPY 1 TQS 1/> REGIONS EACH 15 MINUTES APPLICATI 64380 ESCALANTE JULIO ESCALANTE JULIO ON 1 MODALITY 1/> AREAS HOT/COLD PACKS THERAPEUT 89252 ESCALANTE JULIO ESCALANTE JULIO IC PX 1/> 1 AREAS EACH 15 MIN EXERCISES APPL 80784 ESCALANTE JULIO ESCALANTE JULIO MODALITY 1 1/> AREAS ELEC STIMJ UNATTENDE D APPL 93765 ESCALANTE JULIO ESCALANTE JULIO MODALITY 1 1/> AREAS TRACTION MECHANICA L CHIROPRAC 21746 ESCALANTE JULIO ESCALANTE JULIO TIC 1 MANIPULAT [place] SPINAL 3-4 REGIONS CHIROPRAC 60458 ESCALANTE JULIO ESCALANTE JULIO TIC 1 MANIPULAT [place] SPINAL 3-4 REGIONS APPL 96000 ESCALANTE JULIO ESCALANTE JULIO MODALITY 1 1/> AREAS TRACTION MECHANICA L APPL 13045 ESCALANTE JULIO ESCALANTE JULIO MODALITY 1 1/> AREAS ELEC STIMJ UNATTENDE D THERAPEUT 11587 ESCALANTE JULIO ESCALANTE JULIO IC PX 1/> 1 AREAS EACH 15 MIN EXERCISES APPLICATI 22762 ESCALANTE JULIO ESCALANTE JULIO ON 1 MODALITY 1/> AREAS HOT/COLD PACKS MANUAL 61072 ESCALANTE JULIO ESCALANTE JULIO THERAPY 1 TQS 1/> REGIONS EACH 15 MINUTES CHIROPRAC 44427 ESCALANTE JULIO ESCALANTE JULIO TIC 1 MANIPLTV TX EXTRASPIN AL 1/> REGION CHIROPRAC 95375 ESCALANTE JULIO ESCALANTE JULIO TIC 1 MANIPLTV TX EXTRASPIN AL 1/> REGION MANUAL 07471 ESCALANTE JULIO ESCALANTE JULIO THERAPY 1 TQS 1/> REGIONS EACH 15 MINUTES APPLICATI 37850 ESCALANTE JULIO ESCALANTE JULIO ON 1 MODALITY 1/> AREAS HOT/COLD PACKS THERAPEUT 05405 ESCALANTE JULIO ESCALANTE JULIO IC PX 1/> 1 AREAS EACH 15 MIN EXERCISES APPL 36260 ESCALANTE JULIO ESCALANTE JULIO MODALITY 1 1/> AREAS ELEC STIMJ UNATTENDE D APPL 33461 ESCALANTE JULIO ESCALANTE JULIO MODALITY 1 1/> AREAS TRACTION MECHANICA L CHIROPRAC 05431 ESCALANTE JULIO ESCALANTE JULIO TIC 1 MANIPULAT [place] SPINAL 3-4 REGIONS MANUAL 84472 ESCALANTE JULIO ESCALANTE JULIO THERAPY 1 TQS 1/> REGIONS EACH 15 MINUTES CHIROPRAC 10185 ESCALANTE JULIO ESCALANTE JULIO TIC 1 MANIPULAT [place] SPINAL 3-4 REGIONS APPL 41289 ESCALANTE JULIO ESCALANTE JULIO MODALITY 1 1/> AREAS TRACTION MECHANICA L APPLICATI 72596 ESCALANTE JULIO ESCALANTE JULIO ON 1 MODALITY 1/> AREAS HOT/COLD PACKS THERAPEUT 69875 ESCALANTE JULIO ESCALANTE JULIO IC PX 1/> 1 AREAS EACH 15 MIN EXERCISES CHIROPRAC 79372 ESCALANTE JULIO ESCALANTE JULIO TIC 1 MANIPLTV TX EXTRASPIN AL 1/> REGION APPL 58497 ESCALANTE JULIO ESCALANTE JULIO MODALITY 1 1/> AREAS ELEC STIMJ UNATTENDE D RADIOLOGI 41690 [facility] [place] OMAR MAT C EXAM 1 RADIOLOGY CHEST 2 VIEWS FRONTAL&L ATERAL RADEX 04561 [facility] SPINE 1 [facility] 2 VIEWS RADEX 13890 [facility] SPINE 1 Y [facility] 2 VIEWS RADIOLOGI 61864 [facility] C EXAM 1 Y Y CHEST 2 HOSPITAL HOSPITAL VIEWS FRONTAL&L ATERAL RADEX 16544 [facility] [place] LASHAE ELBOW 1 RADIOLOGY DANNI COMPLETE MINIMUM 3 [place] [address] CHIPPS MOSES JAM SURG 1 MARLON & PATHOLOGY XIMENAILIDEBO GROSS&CONCHIS ROSCOPIC EXAM RPR 09399 VENGUSWAM VENGUSWAM UMBILICAL 1 Y CATARINA Y CATARINA HRNA 5 YRS/> REDUCIBLE SIMPLE 14143 YARIEL GALO REPAIR 1 EMERGENCY CHAU SCALP/NEC SERVICES K/AX/MAIRA T/TRUNK 2.5CM/< URNLS DIP 12194 [facility] 1 N N STICK/TAB [facility] LET HOSPITA HOSPITA REAGENT AUTO MICROSCOP Y THERAPEUT 45946 [facility] IC 1 N N PROPHYLAC [facility] TIC/DX HOSPITA HOSPITA INJECTION SUBQ/IM ECG 75578 [facility] ROUTINE 1 N N ECG [facility] W/LEAST HOSPITA HOSPITA 12 LDS TRCG ONLY W/O I&R BASIC 39882 [facility] METABOLIC 1 N N PANEL [facility] CALCIUM HOSPITA HOSPITA TOTAL BLOOD 74033 [facility] COUNT 1 N N SMEAR [facility] MCRSCP HOSPITA HOSPITA W/MNL DIFRNTL WBC COUNT THROMBOPL 94957 [facility] ASTIN 1 N N TIME [facility] PARTIAL HOSPITA HOSPITA PLASMA/WH OLE BLOOD PROTHROMB 00525 [facility] IN TIME 1 N N [facility] HOSPITA HOSPITA BLOOD 80333 [facility] COUNT 1 N N COMPLETE [facility] AUTOMATED HOSPITA HOSPITA COLLECTIO 01394 [facility] N VENOUS 1 N N BLOOD [facility] VENIPUNCT HOSPITA HOSPITA URE RADIOLOGI 83503 [facility] GRACIE GE C EXAM 1 RADIOLOGY CHEST 2 VIEWS FRONTAL&L ATERAL IMMUNOASS 84973 [facility] AY NFCT 1 N URGENT ABD AGT ANTB CARE QUAL/SEMI LOUIE 1 STEP BLOOD 62479 [facility] OCCULT 1 N URGENT ABD PEROXIDAS CARE E ACTV QUAL FECES 1 DETER SERVICES 35479 [facility] PROVIDED 1 N URGENT ABD OFFICE CARE OTH/THN REG SCHED HOURS MRI ANY 24080 [facility] JT LOWER 1 N N EXTREM [facility] W/O HOSPITA HOSPITA CONTRAST MATRL SERVICES 31896 [facility] PROVIDED 1 N URGENT ABD OFFICE CARE OTH/THN REG SCHED HOURS COLLECTIO 52423 [facility] N VENOUS 1 N N BLOOD [facility] VENIPUNCT HOSPITA HOSPITA URE HEPATITIS 03332 [facility] B CORE 1 N N ANTIBODY [facility] HBCAB HOSPITA HOSPITA TOTAL HEPATITIS 52205 [facility] SURF 1 N N ANTIBODY [facility] HBSAB HOSPITA HOSPITA HEPATITIS 73205 [facility] A 1 N N ANTIBODY [facility] HAAB HOSPITA HOSPITA ACUTE 16750 [facility] HEPATITIS 1 N N PANEL [facility] HOSPITA HOSPITA RADIOLOGI 64816 [facility] GRACIE GE C 1 RADIOLOGY EXAMINATI ON KNEE 3 VIEWS THERAPEUT 43392 [facility] IC 1 N URGENT ABD PROPHYLAC CARE TIC/DX INJECTION SUBQ/IM ECG 56057 [facility] ROUTINE 0 ANNITA ADR ECG CARDIOLOG W/LEAST Y CLINIC 12 LDS W/I&R ACUTE 40980 [facility] HEPATITIS 0 N N PANEL [facility] HOSPITA HOSPITA COLLECTIO 22398 [facility] N VENOUS 0 N N BLOOD [facility] [place] [address] [facility] ABDOMINAL 0 N N REAL [facility] TIME HOSPITA HOSPITA W/IMAGE LIMITED LIPID 73415 [facility] PANEL 0 N N [facility] HOSPITA HOSPITA COMPREHEN 04157 [facility] SIVE 0 N N METABOLIC [facility] PANEL HOSPITA HOSPITA COLLECTIO 72883 [facility] N VENOUS 0 N N BLOOD [facility] [place] [address] [facility] THYROID 0 N N STIMULATI [facility] NG HOSPITA HOSPITA HORMONE TSH SERVICES 95371 [facility] PROVIDED 0 N URGENT ABD OFFICE CARE OTH/THN REG SCHED HOURS MRI 71058 [facility] [place] TRISH SPINAL 0 RADIOLOGY RHO CANAL CERVICAL W/O CONTRAST MATRL RADEX 49463 [place] CELE ELBOW 0 MEDICAL MARIO COMPLETE IMAGING MINIMUM 3 ASS VIEWS SERVICES 15119 [facility] PROVIDED 0 N URGENT ABD OFFICE CARE OTH/[place] [address] [facility] FOLIC 0 [place] [facility] [employer] ACID SERUM BLOOD 15431 [facility] COUNT 0 [employer] COMPLETE AUTO&AUTO DIFRNTL WBC GLUCOSE 83855 [facility] QUANTITAT 0 N URGENT ABD CLARY BLOOD CARE XCPT REAGENT STRIP HEMOGLOBI 56017 [facility] N 0 [place] [facility] [employer] GLYCOSYLA THERESA A1C COMPREHEN 57648 [facility] SIVE 0 [employer] METABOLIC PANEL NRV [facility] 45787 GARCÍA TRA GARCÍA TRA AMPLT&LAT 0 NCY EA NRV MOTR W/O F-WAVE STD NRV CND 22420 GARCÍA TRA GARCÍA TRA AMPLT&LAT 0 ENCY EA NRV MOTOR W/F-WAVE STD NRV D 73087 GARCÍA TRA GARCÍA TRA AMPLITUDE 0 & LATENCY EACH NERVE SENSORY NDL EMG 1 34513 GARCÍA TRA GARCÍA TRA XTR W/WO 0 RELATED PARASPINA L AREAS RADEX 93950 [facility] ELBOW 0 N N COMPLETE [facility] MINIMUM 3 HOSPITA HOSPITA VIEWS RADEX 05799 [facility] [place] OMAR MAT HAND 0 RADIOLOGY MINIMUM 3 VIEWS RADEX 85227 [facility] [place] OMAR MAT SPINE 0 RADIOLOGY LUMBOSACR AL 2/3 VIEWS RADEX 54597 [facility] [place] OMAR MAT WRIST 0 RADIOLOGY COMPLETE MIN[address] [place] [address] [facility] [place] OMAR MAT ABDOMEN 0 RADIOLOGY W/CONTRAS T MATERIAL CT PELVIS 66176 [facility] [place] OMAR MAT 0 RADIOLOGY W/CONTRAS T MATERIAL RADEX 28245 [place] NICKELS SPINE 0 MEDICAL [place] LUMBOSACR SERV AL 2/3 FOUNDATIO VIEWS RADEX 16125 RAMÓN RAMÓN SPINE 0 MEM HOS[facility]OS[facility] LUMBOSACR INC INC AL MINIMUM 4 VIEWS RADEX 64559 RAMÓN RAMÓN SPINE 0 [facility] CERVICAL INC INC 6 OR MORE VIEWS RADEX 76297 RAMÓN RAMÓN SPINE 0 [facility] THORACIC INC INC 3 VIEWS RADEX TOE 45516 RAMÓN RAMÓN MINIMUM 0 [facility] 2 VIEWS INC INC RADEX 06970 [facility] [place] OMAR, FOOT 0 RADIOLOGY WILLIAM D COMPLETE MINIMUM 3 VIEWS URNLS DIP 57749 RAMÓN RAMÓN 0 [facility] HOS[facility] HOSP STICK/TAB INC INC LET REAGENT AUTO MICROSCOP Y URNLS DIP 11028 [place] 0 [facility] STICK/TAB [facility] LET REAGENT AUTO MICROSCOP Y BASIC 78053 [place] [facility] METABOLIC 0 [facility] CALCIUM TOTAL BLOOD 13860 [facility] [facility] COUNT 0 [facility] AUTO&AUTO DIFRNTL WBC CUL BACT 21066 JENNIFER JIMURBON XCPT 0 [facility] BLOOD/STO OL AEROBIC ISOL CULTURE 77715 [facility] BACTERIAL 0 [facility] QUANTTATI VE COLONY COUNT URINE SUSCEPTIB 02648 JENNIFER FRIAS LTY STDY 0 [facility] IAL MICRO/AGA R DILUTJ COLLECTIO 97327 [facility] N VENOUS [facility] VENIPUNCT URE RADEX 50157 [facility] [place] TRISH, ELBOW 0 RADIOLOGY HALLIE G COMPLETE MINIMUM 3 VIEWS DUP-SCAN 31249 [facility] XTR VEINS [address] [facility] UNILATERA L/LIMITED STUDY RADEX 13388 [facility] [place] MARTINEZ, G ELBOW 2 0 RADIOLOGY T VIEWS NONINVASI 71080 [facility] VE 0 Y Y EAR/PULSE [facility] OXIMETRY SINGLE DETER NONINVASI 42795 [facility] VE 0 Y Y EAR/PULSE [facility] OXIMETRY SINGLE DETER RADEX 36202 [facility] & 0 Y Y [facility] MINIMUM 2 VIEWS RADEX 34978 [place] FRANK, FOOT 0 MEDICAL VALERIE N COMPLETE SERV MINIMUM 3 FOUNDATIO VIEWS RADEX TOE 98543 [facility] MINIMUM [address] CUL BACT 10132 [facility] XCPT 9 [facility] BLOOD/STO OL AEROBIC ISOL SUSCEPTIB 90728 [facility] LTY STDY 9 [facility] IAL MICRO/AGA R DILUTJ INJECTION [id number] [address] KETOROLAC TROMETHAM INE PER 15 MG RADEX 77241 [facility] SPINE [address] [place] [address] LUMBOSACR AL 2/3 VIEWS THERAPEUT 81833 [facility] IC [address] [place] [address] PROPHYLAC TIC/DX INJECTION SUBQ/IM STRAPPING 42761 [facility] 9 JEFFY SMITH &/FOOT EMERGENCY A PHYS INC RADEX 01517 [facility] PETER ANDUJAR 9 RADIOLOGY J COMPLETE MINIMUM 3 VIEWS RADIOLOGI 10837 [facility] Lydia ANDUJAR 9 RADIOLOGY J EXAMINATI ON TIBIA & FIBULA 2 VIEWS EXCISION 09-23-200 83054 SCHULSTDEA SCHULSTAD PILONIDAL 9 , QUITA , QUITA CYST/SINU S SIMPLE LEVEL III 30199 PATHOLOGY PATHOLOGY SURG 9 & & PATHOLOGY CYTOLOGY CYTOLOGY LAB LAB GROSS&CONCHIS ROSCOPIC EXAM ANES 15363 BRUNA SY 9 ANESTHESI MIKE J MUSC & A GROUP NRV HEAD PSC NECK&POST ERIOR TRUNK BASIC 52461 [facility] METABOLIC 9 [facility] CALCIUM TOTAL BLOOD 24418 [facility] COUNT 9 [facility] AUTO&AUTO DIFRNTL WBC COLLECTIO 51592 [facility] N VENOUS 9 [facility] VENIPUNCT URE SUSCEPTIB 27878 RAMÓN MELGAR LTY STDY 9 [facility] ANTIMICRB INC INC IAL MICRO/AGA R DILUTJ CUL BACT 06795 RAMÓN RAMÓN XCPT 9 [facility] URINE INC INC BLOOD/STO OL AEROBIC ISOL CUL BACT 04588 RAMÓN MELGAR AEROBIC 9 [facility] ADDL INC INC METHS DEFINITIV E EA ISOL RADEX 78619 [facility] [place] SCALF, ANKLE 9 RADIOLOGY BOY E COMPLETE MINIMUM 3 VIEWS RADEX 68729 [facility] [place] SCALF, FOOT 9 RADIOLOGY BOY E COMPLETE MINIMUM 3 VIEWS APPLICATI 42083 [facility] SHORT 9 JEFFY W E LEG EMERGENCY SPLINT PHYS INC CALF FOOT RADEX 71344 [facility] SPINE 9 [facility] AL 2/3 VIEWS RADEX 36477 RAMÓN MELGAR SPINE 9 [facility] HOS[facility] LUMBOSACR INC INC AL MINIMUM 4 VIEWS RADIOLOGI 57874 Lydia SALDANA 9 MEDICAL RUY EXAMINATI IMAGING ON PELVIS ASSOCIATE 1/2 S VIEWS 3D 02614 [facility] PORTILLO, RENDERING 9 MEDICAL PITER P IMAGING W/INTERP& [place]OCI[place] [address] [facility] PORTILLO ABDOMEN 9 MEDICAL PITER P W/O IMAGING CONTRAST ASSOCIATE MATERIAL S URNLS DIP 18713 RAMÓN MELGAR 9 [facility] STICK/TAB INC INC LET REAGENT AUTO MICROSCOP Y BASIC 07837 RAMÓN MELGAR METABOLIC 9 MEM [facility] H[facility] PANEL INC INC CALCIUM TOTAL BLOOD 26502 RAMÓN MELGAR COUNT 9 [facility] COMPLETE INC INC AUTO&AUTO DIFRNTL WBC CT PELVIS 13927 RAMÓN MELGAR W/O 9 [facility] HOS[facility] CONTRAST INC INC MATERIAL THERAPEUT 03987 [facility] IC [address] [place] [address] PROPHYLAC TIC/DX INJECTION SUBQ/IM CUL BACT 18295 [facility] XCPT [address] [place] [address] URINE BLOOD/STO OL AEROBIC ISOL SMR PRIM 80588 [facility] SRC [address] [place] [address] GRAM/GIEM SA STAIN BCT FUNGI/GAYATRI L RADEX 57195 [facility] GRACIE UREÑA, SPINE 9 RADIOLOGY J LUMBOSACR AL 2/3 VIEWS EXCISION 45959 Timur AMIN PILONIDAL 9 MEDICAL D SERV CYST/SINU FOUNDATIO S SIMPLE EXCISION 55585 [facility] PILONIDAL [address] [facility] CYST/SINU S EXTENSIVE INJECTION J2250 [facility] [address] [facility] HCL PER 1 MG INJECTION J2270 [facility] MORPHINE [address] [facility] UP TO 10 MG INJECTION J3010 [facility] FENTANYL [address] [facility] 0.1 MG UNCLASSIF J3490 [facility] IED DRUGS 9 Y Y [facility] LEVEL III 29890 [place] DIANN SURG 9 MEDICAL BRILL, PATHOLOGY SERV LUIS DANIEL M FOUNDATIO GROSS&CONCHIS ROSCOPIC EXAM INJECTION J2405 [facility] 9 [facility] PER 1 MG INJECTION J2175 [facility] [address] [facility] E HCL PER 100 MG RINGERS J7120 [facility] LACTATE [address] [facility] UP TO 1000 CC INJECTION J1100 [facility] [address] [facility] SONE SODIUM PHOSPHATE 1 MG ANES 12700 [place] JENNIFER, INTEG 9 MEDICAL RUI MUSC & SERVICES NRV HEAD NECK&POST ERIOR TRUNK HEPATIC 19107 [facility] FUNCTION 9 [facility] PANEL INJECTION J2765 [facility] [address] [facility] AMIDE HCL UP TO 10 MG INFUSION J7030 [facility] NORMAL [address] [facility] SOLUTION 1000 CC INJECTION J1885 [facility] [address] [facility] TROMETHAM INE PER 15 MG INJECTION J1200 [facility] 9 Y Y [facility] RAMINE HCL UP TO 50 MG MYOCRD 97496 CARDIOLOG DINO, PRFUJ STD 8 Y EMILIE S EJEC FXJ ASSOCIATE S OF [place] CV STRS 93708 CARDIOLOG DINO, TST 8 Y EMILIE Mckeon XERS&/OR ASSOCIATE RX CONT S OF ECG [place] W/SI&R MYOCRD 85903 CARDIOLOG DINO PRFUJ STD 8 Y EMILIE Mckeon WALL ASSOCIATE MOTION S OF QUAL/LOUIE [place] STD MYOCRD 15515 CARDIOLOG DINO, PRFUJ IMG 8 Y EMILIE Mckeon TOMOG ASSOCIATE SPECT SIGN ERECTOR AND REPAIRER S OF STD [place] COMPREHEN 97471 [facility] SIVE 8 N N [facility] BLOOD 42208 [facility] COUNT 8 N N COMPLETE [facility] AUTO&AUTO HOSPITAL HOSPITAL DIFRNTL WBC LIPID 84598 [facility] PANEL 8 N N [facility] COLLECTIO 32725 [facility] N VENOUS 8 N N BLOOD [facility] 01157 CARDIOLOG DINO, ROUTINE 8 Y EMILIE S ECG ASSOCIATE W/LEAST S OF 12 LDS [place] W/I&R COMPREHEN 22882 OFFICE OFFICE SIVE 8 [facility] METABOLIC DIAGNOSTI DIAGNOSTI PANEL C C SERVICES SERVICES COMPREHEN 31885 [facility] SIVE 8 N N [facility] BLOOD 08510 [facility] COUNT 8 N N COMPLETE [facility] AUTO&AUTO HOSPITAL [place] [address] [facility] TROPONIN 8 N N QUANTITAT [facility] INITIAL 48446 [facility] OBSERVATI 8 N N ON [facility] CARE/DAY HOSPITAL HOSPITAL 30 MINUTES AMB A0427 [facility] SERVICE 8 MARIA G [place]UM[place] ALS CO EMS CO EMS EMERGENCY TRANSPORT LEVEL 1 RADIOLOGI 95730 [facility] C 8 N N EXAMINATI [facility] [place] FRONTAL ECG 47872 [facility] ROUTINE 8 N N ECG [facility] W/[facility] 12 LDS TRCG ONLY W/O I&R CREATINE 84910 [facility] KINASE 8 N N TOTAL [facility] ECG 17061 [facility] CELLAROSI ROUTINE 8 JEFFY - YORBA, ECG EMERGENCY BLANCO W/LEAST PHYS INC M 12 LDS I&R ONLY COLLECTIO 96078 [facility] N VENOUS 8 N N BLOOD [facility] URE CREATINE 28378 [facility] KINASE MB 8 N N FRACTION [facility] GROUND A0425 [facility] MILEAGE 8 MARIA G [place]UM[place] PER CO EMS CO EMS STATUTE MILE ECG 04973 [facility] AHMED, ROUTINE 8 JEFFY SMIHT ECG EMERGENCY A W/LEAST PHYS INC 12 LDS I&R ONLY RADIOLOGI 94297 [facility], C 8 JEFFY SMITH EXAMINATI EMERGENCY A ON CHEST PHYS INC SINGLE VIEW FRONTAL Encounters Encounter Start End Date Code Location Performer Type Date HOSPITAL RAMÓN Nino 7 7 [facility] OUTPATIEN INC T EMERGENCY 59475 [facility] 7 7 PHYSICIAN U DEPARTMEN S, PLLC T VISIT HIGH/URGE NT SEVERITY EMERGENCY 12851 RAMÓN 7 7 [facility] DEPARTMEN INC T VISIT LOW/MODER SEVERITY EMERGENCY 62407 RAMÓN 7 7 [facility] DEPARTMEN INC T VISIT LOW/MODER SEVERITY EMERGENCY 32986 [facility] DIAL 7 7 PHYSICIAN DEPARTMEN S, PLLC T VISIT MODERATE SEVERITY HOSPITAL RAMÓN - 7 7 [facility] OUTPATIEN INC T EMERGENCY 89004 [facility] 7 7 JEFFY DEPARTMEN EMERGENCY T VISIT PHYS HIGH/URGE NT SEVERITY HOSPITAL RAMÓN - 7 7 MEM [facility] OUTPATIEN INC T EMERGENCY 43991 RAMÓN 7 7 [facility] DEPARTMEN INC T VISIT LOW/MODER SEVERITY EMERGENCY 81423 [facility] CAL[facility] 7 7 PHYSICIAN DEPARTMEN S, PLLC T VISIT MODERATE SEVERITY EMERGENCY 21175 WALLY STEPHENSON 7 7 NURSE DEPARTMEN PRACTITIO T VISIT NER GR HIGH/URGE NT SEVERITY [facility]OSPITAL [facility] - 7 7 [facility] OUTPATIEN E T HOSPITALS OFFICE 51520 [facility] 7 7 [place] T NEW 30 PHYSICIAN MINUTES S ASSIST EMERGENCY 34198 [facility] 7 7 Y OF [place] DEPARTMEN PHYSICIAN T VISIT S MODERATE SEVERITY [facility]OSPITAL [facility] - 7 7 [facility] OUTPATIEN E T HOSPITALS OFFICE 38480 JENNIFER GRUBER [facility] 7 7 PHYSICIAN T VISIT PRACTICE 15 L MINUTES OFFICE 17570 JENNIFER [facility] 7 7 PHYSICIAN T NEW 30 PRACTICE MINUTES L OFFICE 55002 GRACIE H[facility]TON [facility] 7 7 MEDICAL T NEW 45 SERV MINUTES FOUNDATIO N EMERGENCY 17639 [facility] 7 7 JEFFY DEPARTMEN EMERGENCY T VISIT PHYS MODERATE SEVERITY EMERGENCY 85133 [facility] ISAUR[facility] 6 6 MEDICAL DEPARTMEN SERV T VISIT FOUNDATIO MODERATE N SEVERITY EMERGENCY 91311 6 6 [facility] DEPARTMEN E T VISIT HOSPITALS HIGH/URGE NT SEVERITY [facility]OS[facility] 6 6 [facility] OUTPATIEN E T HOSPITALS EMERGENCY 81621 6 6 [facility] DEPARTMEN E T VISIT HOSPITALS HIGH/URGE NT SEVERITY [facility]OSP[facility] - 6 6 [facility] OUTPATIEN E T HOSPITALS EMERGENCY 41189 [facility] 6 6 [place] DEPARTMEN PHYSICIAN T VISIT S ASSIST LOW/MODER SEVERITY HOSPITAL [facility] 6 6 N OUTPATIEN COMMUNTIY T HOSPITA EMERGENCY 33108 [facility] 6 6 N DEPARTMEN COMMUNTIY T VISIT HOSPITA HIGH/URGE NT SEVERITY EMERGENCY 40604 [place] KANDI 6 6 MEDICAL DEPARTMEN SERV T VISIT FOUNDATIO LOW/MODER N SEVERITY [facility]OSPITAL [facility] - 6 6 [facility] OUTPATIEN E T HOSPITALS EMERGENCY 68671 6 6 [facility] DEPARTMEN E T VISIT HOSPITALS LOW/MODER SEVERITY OFFICE 61413 [facility]IO [facility] OUTPATI 6 6 PHYSICIAN T NEW 30 PRACTICE MINUTES L EMERGENCY 15069 [place] SURAJ EDMONDSONI 6 6 MEDICAL DEPARTMEN SERV T VISIT FOUNDATIO MODERATE N SEVERITY [facility]OSPITAL [facility] - 6 6 [facility] OUTPATIEN E T HOSPITALS EMERGENCY 02995 6 6 [facility] DEPARTMEN E T VISIT HOSPITALS LOW/MODER SEVERITY EMERGENCY 92884 RAMÓN 6 6 MEM HOSP DEPARTMEN INC T VISIT LIMITED/M INOR PROB HOSPITAL RAMÓN - 6 6 [facility] OUTPATIEN INC T EMERGENCY 26490 [facility] 6 6 PHYSICIAN DEPARTMEN S, PLLC T VISIT MODERATE SEVERITY EMERGENCY 18368 [facility] 6 6 JEFFY OSIEL DEPARTMEN EMERGENCY T VISIT PHYS MODERATE SEVERITY EMERGENCY 93943 RAMÓN 6 6 MEM HOSP [facility] EVERETTMEN INC T VISIT LIMITED/M INOR PROB EMERGENCY 07558 [facility] 6 6 PHYSICIAN Priya GONCALVES [facility] T VISIT MODERATE SEVERITY HOSPITAL RAMÓN - 6 6 MEM HOS[facility] OUTPATIEN INC T EMERGENCY 09315 [facility] 6 6 JEFFY ELO [facility] EMERGENCY T VISIT PHYS HIGH/URGE NT SEVERITY EMERGENCY 60997 RAMÓN 6 6 MEM HOSP [facility] INC T VISIT LIMITED/M INOR PROB EMERGENCY 67095 [facility] VALENTINE 6 6 PHYSICIAN KENYATTA [facility] T VISIT MODERATE SEVERITY HOSPITAL RAM[facility]N - 6 6 [facility] OUTPATI[facility] INC [facility] EMERGENCY 54396 [facility] 6 6 JEFFY OGNCALVES [facility] EMERGENCY T VISIT PHYS MODERATE SEVERITY HOSPITAL [facility] - 6 6 [facility] T OFFICE 22096 [facility] 6 6 SHEBA KIEL T VISIT ADULT & 25 PED MINUTES HOSPITAL [facility] - 6 6 [facility] T HOSPITAL [facility] - 6 6 [facility] INC T EMERGENCY 58190 [facility] MATTHEW 6 6 PHYSICIAN CONCHIS [facility] T VISIT HIGH/URGE NT SEVERITY HOSPITAL [facility] - 6 6 [facility] OUT[facility] INC T OFFICE 10616 [facility] 6 6 MISAELY KIEL T VISIT ADULT & 25 PED MINUTES OFFICE 24279 [facility] 6 6 MISAELY KIEL ION ADULT & NEW/ESTAB PED PATIENT 60 MIN EMERGENCY 77384 [facility] 6 6 JEFFY PAT DEPARTMEN EMERGENCY T VISIT PHYS MODERATE SEVERITY EMERGENCY 65340 [facility] ARNOLD 6 6 JEFFY OSIEL DEPARTMEN EMERGENCY T VISIT PHYS MODERATE SEVERITY EMERGENCY 09306 [facility] ESPINOZA [facility]AB 6 6 JEFFY DEPARTMEN EMERGENCY T VISIT PHYS MODERATE SEVERITY HOSPITAL [facility] - 6 6 [facility] OUTPATI[facility] INC T EMERGENCY 49132 [facility] 6 6 [facility] DEPARTMEN INC T VISIT LOW/MODER SEVERITY EMERGENCY 91191 [facility] VALENTINE 6 6 PHYSICIAN [facility]ITY [facility] - 6 6 [facility] OUT[facility] INC T EMERGENCY 12898 [facility] MAJOR 6 6 PHYSICIAN [facility] T VISIT MODERATE SEVERITY EMERGENCY 34298 [facility] 6 6 [facility] DEPARTMEN INC T VISIT LOW/MODER SEVERITY HOSPITAL [facility] - 6 6 [facility] OUTPATIEN INC T OFFICE 67783 EULA HANSON OUTPATIEN 6 6 MD LUCI, T NEW 45 PSC MINUTES OFFICE 45915 [facility] OUTPATIEN 6 6 [facility] T VISIT INC 10 MINUTES HOSPITAL [facility] - 6 6 [facility] OUTPATI[facility] INC T EMERGENCY 87168 [facility] 6 6 [facility] DEPARTMEN INC T VISIT LOW/MODER SEVERITY EMERGENCY 04632 [facility] MATTHEW 6 6 PHYSICIAN CONCHIS [facility] T VISIT MODERATE SEVERITY HOSPITAL [facility] - 5 5 [facility] OUTPATIEN INC T EMERGENCY 52843 [facility] 5 5 [facility] DEPARTMEN INC T VISIT LOW/MODER SEVERITY EMERGENCY 74569 [facility] MATTHEW 5 5 [facility]YSICIAN [facility] T VISIT MODERATE SEVERITY EMERGENCY 29866 [facility] 5 5 JEFFY LIZA [facility] EMERGENCY T VISIT PHYS HIGH/URGE NT SEVERITY EMERGENCY 31449 GRACIE ISAAC 5 5 MEDICAL ALEX [facility] SERV T VISIT FOUNDATIO MODERATE N SEVERITY HOSPITAL UNIVERSIT - 5 [facility] 54705 [facility] MATTHEW DEPT 5 5 PHYSICIAN VISIT S, PLLC HIGH SEVERITY& THREAT [facility] RAM[facility]N [facility] 5 5 [facility] OUTPATIEN INC T EMERGENCY 04694 [facility] 5 5 JEFFY ELO [facility] EMERGENCY T VISIT PHYS MODERATE SEVERITY HOSPITAL [facility] 5 5 N OUTPATIEN COMMUNTIY T HOSPITA EMERGENCY 20323 [facility] 5 5 JEFFY - YORBA [facility] EMERGENCY PAT T VISIT PHYS MODERATE SEVERITY HOSPITAL [facility] - 5 5 [facility] 93508 [facility] 5 5 JEFFY ELO [facility] EMERGENCY T VISIT PHYS MODERATE SEVERITY EMERGENCY 56814 RAMÓN MATTHEW 5 5 [facility] T VISIT P LOW/MODER SEVERITY EMERGENCY 70260 [facility] 4 4 JEFFY [facility] EMERGENCY T VISIT PHYS MODERATE SEVERITY OFFICE 23227 [facility] 4 4 KENYATTA YOU T VISIT 25 MINUTES EMERGENCY 28392 [facility] 4 4 JEFFY PAT [facility] EMERGENCY T VISIT PHYS MODERATE SEVERITY EMERGENCY 91267 [facility] 4 4 [facility] INC T VISIT LOW/MODER SEVERITY EMERGENCY 54083 DON MATTHEW [address] [facility] T VISIT MODERATE SEVERITY HOSPITAL RAM[facility]N - 4 4 [facility] OUTPATIEN INC T EMERGENCY 54747 KANDI MILES 4 4 DEPARTMEN T VISIT MODERATE SEVERITY EMERGENCY 67103 KANDI MILES 4 4 DEPARTMEN T VISIT MODERATE SEVERITY EMERGENCY 02153 [facility]I CELLAROSI 4 4 - YORBA - YORBA DEPARTMEN PAT PAT T VISIT HIGH/URGE NT SEVERITY EMERGENCY 66937 ALFARIS ALFARIS 4 4 [facility] DEPARTMEN T VISIT HIGH/URGE NT SEVERITY Emergency CORINNA Matthew MD (ER) 4 20:03 4 20:30 [facility] EMERGENCY 40710 DON MATTHEW 4 4 [facility] DEPARTMEN T VISIT MODERATE SEVERITY HOSPITAL RAMÓN - 3 3 [facility] 90872 CHUY II CHUY II 3 3 THO THO DEPARTMEN T VISIT MODERATE SEVERITY Emergency CORINNA Doran MD (ER) 3 16:00 3 16:10 [facility] EMERGENCY 61245 SOKAN BAB SOKAN BAB 3 3 DEPARTMEN T VISIT MODERATE SEVERITY Emergency CORINNA DENISE (ER) 3 02:20 3 02:55 [facility] EMERGENCY 82943 ALFARIS ALFARIS 3 3 [facility] DEPARTMEN T VISIT MODERATE SEVERITY EMERGENCY 26192 RECHTIN RECHTIN 3 3 [facility] DEPARTMEN T VISIT MODERATE SEVERITY Emergency CORINNA Sommers MD (ER) 3 17:05 3 17:10 [facility] EMERGENCY 72137 KANDI MILES 3 3 DEPARTMEN T VISIT MODERATE SEVERITY Emergency CORINNA Doran MD (ER) 3 15:40 3 16:15 [facility] EMERGENCY 06666 SOKAN BAB SOKAN BAB 3 3 DEPARTMEN T VISIT MODERATE SEVERITY Emergency CORINNA Sommers MD (ER) 3 01:00 3 01:38 [facility] EMERGENCY 32700 YARIEL MILES 3 3 EMERGENCY DEPARTMEN SERVICES T VISIT HIGH/URGE NT SEVERITY EMERGENCY 46403 STACK HEIDI STACK HEIDI 3 3 DEPARTMEN T VISIT HIGH/URGE NT SEVERITY EMERGENCY 92931 YARIEL WHITAKER 3 3 EMERGENCY DEPARTMEN SERVICES T VISIT MODERATE SEVERITY EMERGENCY 94009 YARIEL BARROSO DEPT 3 3 EMERGENCY JAM VISIT SERVICES HIGH SEVERITY& THREAT FUNCJ EMERGENCY 00997 CAREY PATINO 3 3 SET SET DEPARTMEN T VISIT HIGH/URGE NT SEVERITY EMERGENCY 72422 CHUY II CHUY II 3 3 THO THO DEPARTMEN T VISIT MODERATE SEVERITY HOSPITAL RAMÓN - 3 3 [facility] OUTPATI[facility] INC T EMERGENCY 43928 DON MATTHEW 3 3 [facility] DEPARTMEN T VISIT HIGH/URGE NT SEVERITY EMERGENCY 68786 RAMÓN 3 3 [facility] DEPARTMEN INC T VISIT LIMITED/M INOR PROB EMERGENCY 12693 YARIEL COTE DEPT 3 3 EMERGENCY III [place] VISIT SERVICES HIGH SEVERITY& THREAT FUNCJ EMERGENCY 90067 ABNER MAT ANBER MAT 2 2 DEPARTMEN T VISIT MODERATE SEVERITY EMERGENCY 59274 YARIEL GUSTAFSON 2 2 EMERGENCY ADT JONATHAN DEPARTMEN SERVICES T VISIT MODERATE SEVERITY OFFICE 30730 KATT YOU CONSULTAT 2 2 ION NEW/ESTAB PATIENT 60 MIN EMERGENCY 58994 FOX LISA FOX LISA 2 2 DEPARTMEN T VISIT MODERATE SEVERITY OFFICE 58557 MIGDALIA NEGRON OUTPATIEN 2 2 CLEMENTINE CLEMENTINE T VISIT 15 MINUTES EMERGENCY 65793 PUND CHR PUND CHR 2 2 DEPARTMEN T VISIT MODERATE SEVERITY EMERGENCY 17790 CHUY II CHUY II 2 2 THO THO DEPARTMEN T VISIT MODERATE SEVERITY EMERGENCY 53915 OSWALDO CHACON 2 2 JULIO JULIO DEPARTMEN T VISIT MODERATE SEVERITY EMERGENCY 26942 RAMÓN 2 2 [facility] DEPARTMEN INC T VISIT LOW/MODER SEVERITY HOSPITAL RAMÓN - 2 2 [facility] OUTPATIEN INC T EMERGENCY 49055 DON DON 2 2 CONCHIS CONCHIS DEPARTMEN T VISIT MODERATE SEVERITY EMERGENCY 69641 CHUY II CHUY II 2 2 THO THO DEPARTMEN T VISIT HIGH/URGE NT SEVERITY OFFICE 38522 OZ [place] JR OUTPATIEN 2 2 KENYON KENYON T NEW 30 MINUTES EMERGENCY 13919 [facility] 2 2 III KENYON III KENYON VISIT HIGH SEVERITY& THREAT FUNCJ EMERGENCY 20090 RAMÓN 2 2 [facility] DEPARTMEN INC T VISIT MODERATE SEVERITY OFFICE 14161 MIGDALIA NEGRON OUTPATIEN 2 2 CLEMENTINE CLEMENTINE T VISIT 15 MINUTES HOSPITAL RAMÓN - 2 2 [facility] OUTPATIEN INC T EMERGENCY 03778 DEJUAN ZAIDI 2 2 GAR GAR DEPARTMEN T VISIT MODERATE SEVERITY OFFICE 15174 NAVARRO PAD NAVARRO PAD OUTPATIEN 2 2 T VISIT 15 MINUTES EMERGENCY 93002 CHUY T CHUY T 2 2 DEPARTMEN T VISIT MODERATE SEVERITY EMERGENCY 44026 RECHTIN RECHTIN 2 2 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 DEPARTMEN T VISIT HIGH/URGE NT SEVERITY OFFICE 18731 LI LI OUTPATIEN 2 2 KIEL KIEL T VISIT 15 MINUTES EMERGENCY 65241 CELLAROSI CELLAROSI 2 2 - YORBA - YORBA DEPARTMEN PAT PAT T VISIT HIGH/URGE NT SEVERITY OFFICE 87317 NAVARRO PAD NAVARR[facility] PAD OUTPATIEN 2 2 T VISIT 15 MINUTES EMERGENCY 15429 YARIEL STEPHENSON MARIO 2 2 EMERGENCY DEPARTMEN SERVICES T VISIT HIGH/URGE NT SEVERITY OFFICE 36415 MARY ODESSA MARY ODESSA OUTPATIEN 2 2 T VISIT 15 MINUTES EMERGENCY 79053 CHUY T CHUY T 2 2 DEPARTMEN T VISIT MODERATE SEVERITY OFFICE 64336 GUILLERMO LI OUTPATIEN 2 2 KIEL KIEL T VISIT 15 MINUTES HOSP[facility] [place] - 2 2 [facility] T EMERGENCY 29306 [facility] T VISIT MODERATE SEVERITY EMERGENCY 83511 DOWNS PAT DOWNS PAT 2 2 DEPARTMEN T VISIT HIGH/URGE NT SEVERITY EMERGENCY 21549 GRACIE KIRKLAND 2 2 MEDICAL TEREZA DEPARTMEN SERV T VISIT FOUNDATIO MODERATE SEVERITY EMERGENCY 02756 YARIEL ARANDA 2 2 EMERGENCY PAT DEPARTMEN SERVICES T VISIT MODERATE SEVERITY OFFICE 56680 GUILLERMO LI CONSULTAT 2 2 KIEL KIEL ION NEW/ESTAB PATIENT 40 MIN OFFICE 78753 MOIRA MOIRA OUTPATIEN 2 2 MITZI MITZI T NEW 20 MINUTES OFFICE 23984 POWELL POWELL OUTPATIEN 2 2 OSBALDO OSBALDO T VISIT 15 MINUTES EMERGENCY 25940 YARIEL MATTHEW 2 2 EMERGENCY CONCHIS DEPARTMEN SERVICES T VISIT HIGH/URGE NT SEVERITY HOSPITAL RAMÓN - 2 2 [facility] OUTPATIEN INC T EMERGENCY 37424 RAMÓN 2 2 [facility] DEPARTMEN INC T VISIT LOW/MODER SEVERITY EMERGENCY 60838 CHUY T CHUY T 2 2 DEPARTMEN T VISIT MODERATE SEVERITY [facility]OSP[facility] [place] - 2 2 [facility] T OFFICE 36207 BURGESS POWELL OUTPATIEN 2 2 OSBALDO OSBALDO T VISIT 15 MINUTES EMERGENCY 46331 GRACIE JESSIE 2 2 MEDICAL HOUSEMAN DEPARTMEN SERV T VISIT FOUNDATIO HIGH/URGE NT SEVERITY OFFICE 60679 AICHA MITZI [facility]UTES OFFICE 05699 MARY ODESSA [facility] T NEW 20 MINUTES OFFICE 18205 [facility]ALIA NEGR[facility] CLEMENTINE CLEMENTINE T VISIT 15 MINUTES EMERGENCY 10623 OSWALDO CHACON 2 2 JULIO JULIO DEPARTMEN T VISIT MODERATE SEVERITY EMERGENCY 82723 YARIEL MATTHEW 2 2 EMERGENCY CONCHIS DEPARTMEN SERVICES T VISIT HIGH/URGE NT SEVERITY HOSPITAL RAMÓN - 2 2 [facility] 25482 RMAÓN 2 2 [facility] INC T VISIT LOW/MODER SEVERITY EMERGENCY 73116 YARIEL TIDWELL 2 2 EMERGENCY CAR DEPARTMEN SERVICES T VISIT LIMITED/M INOR PROB EMERGENCY 31189 VERONICA MARTIN 2 2 [facility] DEPARTMEN T VISIT HIGH/URGE NT SEVERITY OFFICE 17007 NAVARRO PAD NAVARRO PAD OUTPATIEN 2 2 T VISIT 15 MINUTES HOSPITAL CARLY - 2 2 N OUTPATIEN COMMUNTIY T HOSPITA EMERGENCY 22881 YARIEL MATTHEW 2 2 EMERGENCY CONCHIS DEPARTMEN SERVICES T VISIT HIGH/URGE NT SEVERITY HOSPITAL RAMÓN - 2 2 [facility] OUTPATIEN INC T EMERGENCY 22441 RAMÓN 2 2 [facility] DEPARTMEN INC T VISIT LOW/MODER SEVERITY EMERGENCY 03978 DEJUAN ZAIDI 2 2 GAR GAR DEPARTMEN T VISIT MODERATE SEVERITY EMERGENCY 04876 YARIEL TIDWELL 2 2 EMERGENCY CAR DEPARTMEN SERVICES T VISIT MODERATE SEVERITY OFFICE 08138 [facility]AD[facility] SHARI SHARI T VISIT 15 MINUTES EMERGENCY 15931 OSWALDO CHACON 1 1 JULIO JULIO DEPARTMEN T VISIT MODERATE SEVERITY HOSPITAL UNIVERSIT - 1 1 [facility] T EMERGENCY 92277 UNIVERSIT 1 1 [facility] T VISIT MODERATE SEVERITY [facility]OSP[facility] [place] - 1 1 [facility] T EMERGENCY 55574 MOLINA MITZI MOLINA MITZI 1 1 DEPARTMEN T VISIT MODERATE SEVERITY OFFICE 22416 [facility] PAD [facility] T NEW 20 MINUTES EMERGENCY 62039 OSWALDO CHACON 1 1 JULIO JULIO DEPARTMEN T VISIT HIGH/URGE NT SEVERITY EMERGENCY 45783 DON MATTHEW 1 1 CONCHIS CONCHIS DEPARTMEN T VISIT HIGH/URGE NT SEVERITY EMERGENCY 09731 RAMÓN 1 1 [facility] DEPARTMEN INC T VISIT LOW/MODER SEVERITY HOSPITAL RAMÓN - 1 1 [facility] OUTPATIEN INC T OFFICE 81404 ESCALANTE JULIO [facility]TE [facility]UL[facility] T VISIT 15 MINUTES EMERGENCY 19611 ACS TEODORO 1 1 PRIMARY FRITZ DEPARTMEN CARE T VISIT PHYSICANS MODERATE M SEVERITY EMERGENCY 29561 YARIEL DOWNING 1 1 EMERGENCY - YORBA [facility] EVERETTMEN SERVICES PAT T VISIT MODERATE SEVERITY HOSPITAL UNIVERSIT - 1 1 Y OUTPATIEN HOSPITAL T EMERGENCY 89683 UNIVERSIT 1 1 Y [facility] T VISIT MODERATE SEVERITY OFFICE 03656 ESCALANTE JULIO [facility]AL[facility]TE JULIO [facility] T VISIT 15 MINUTES HOSPITAL [facility] - 1 1 [facility]ER[facility] 33911 UNIVERSIT 1 1 Y [facility] T VISIT MODERATE SEVERITY EMERGENCY 83631 ACS MERCHANT 1 1 PRIMARY KET [facility] CARE T VISIT PHYSICANS HIGH/URGE M NT SEVERITY OFFICE 11943 VENGUSWAM [facility]WAM [facility] Y CATARINA Y CATARINA T VISIT 15 MINUTES OFFICE 75783 ESCALANTE JULIO ESCALANTE [facility]ULIO [facility] T NEW 30 MINUTES EMERGENCY 81886 GRACIE LOPEZ 1 1 MEDICAL DEPARTMEN SERV T VISIT FOUNDATIO MODERATE SEVERITY HOSPITAL UNIVERSIT - 1 1 [facility]ERG[facility] 69141 GRACIE MONIQUE 1 1 MEDICAL SON DEPARTMEN SERV T VISIT FOUNDATIO MODERATE SEVERITY EMERGENCY 49075 UNIVERSIT 1 1 Y [facility]OSPITAL T VISIT LOW/MODER SEVERITY EMERGENCY 89176 YARIEL FERNANDEZ 1 1 EMERGENCY THERESA [facility] SERVICES T VISIT HIGH/URGE NT SEVERITY HOSPITAL UN[facility]ERSIT - 1 1 [facility]ER[facility] 32368 UNIVERSIT 1 1 Y [facility]OSPITAL T VISIT LOW/MODER SEVERITY EMERGENCY 79356 GRACIE WHARTON JR 1 1 MEDICAL [place] DEPARTMEN SERV T VISIT FOUNDATIO MODERATE SEVERITY EMERGENCY 61405 RAMÓN 1 1 [facility] DEPARTMEN INC T VISIT LOW/MODER SEVERITY HOSPITAL RAMÓN - 1 1 [facility] 69405 YARIEL GONZALEZ 1 1 EMERGENCY DEPARTMEN SERVICES T VISIT HIGH/URGE NT SEVERITY EMERGENCY 27385 [facility] 1 1 JEFFY DEPARTMEN EMERGENCY T VISIT PHYS MODERATE SEVERITY EMERGENCY 99405 YARIEL SHEETS 1 1 EMERGENCY CONCHIS DEPARTMEN SERVICES T VISIT MODERATE SEVERITY EMERGENCY 78584 YARIEL MATTHEW 1 1 EMERGENCY [facility]IS DEPARTMEN SERVICES T VISIT HIGH/URGE NT SEVERITY HOSPITAL RAMÓN - 1 1 [facility] OUTPATIEN INC T EMERGENCY 18241 RAMÓN 1 1 [facility] DEPARTMEN INC T VISIT LIMITED/M INOR PROB EMERGENCY 28834 [facility] 1 1 N DEPARTMEN COMMUNITY T VISIT HOSPITA LOW/MODER SEVERITY EMERGENCY 31375 YARIEL DOWNING 1 1 EMERGENCY - YORBA DEPARTMEN SERVICES PAT T VISIT HIGH/URGE NT SEVERITY [facility]ITAL [facility] 1 N OUTPATIEN COMMUNITY T [facility] 96854 GRACIE MARC 1 1 MEDICAL MITZI DEPARTMEN SERV T VISIT FOUNDATIO MODERATE SEVERITY EMERGENCY 47010 JOESPH RANDY JAM 1 1 JEFFY DEPARTMEN EMERGENCY T VISIT PHYS MODERATE SEVERITY HOSPITAL [place] [address] 1 HOSPITAL OUTPATIEN T EMERGENCY [address] DEPARTMEN T VISIT LOW/MODER SEVERITY EMERGENCY 61206 YARIEL GALO 1 1 EMERGENCY CHAU DEPARTMEN SERVICES T VISIT MODERATE SEVERITY EMERGENCY 66587 YARIEL ZAIDI DEPT 1 1 EMERGENCY GAR VISIT SERVICES HIGH SEVERITY& THREAT FUNCJ EMERGENCY 75900 [facility] 1 1 N DEPARTMEN COMMUNITY T VISIT [facility] MODERATE SEVERITY [facility] N [facility] 35711 TIARA MENJIVAR OUTPATIEN 1 1 Y CATARINA Y CATARINA T VISIT 25 MINUTES OFFICE 90462 CARLY SPICER OUTPATIEN 1 1 N URGENT ABD T VISIT CARE 15 MINUTES OFFICE 00707 VENGUSWAM TIARA OUTPATIEN 1 1 Y CATARINA Y CATARINA T NEW 30 MINUTES EMERGENCY 57936 YARIEL GALO 1 1 EMERGENCY CHAU DEPARTMEN SERVICES T VISIT HIGH/URGE NT SEVERITY OFFICE 19540 [facility] DANNIELLE OUTPATIEN 1 1 N URGENT ABD T VISIT CARE 15 MINUTES [facility] 56815 ESSIEKai SPICER OUTPATIEN 1 1 N URGENT ABD T VISIT CARE 15 MINUTES OFFICE 42548 ESSIEBUENA DANNIELLE OUTPATIEN 1 1 N URGENT ABD T VISIT CARE 15 MINUTES EMERGENCY 21618 YARIEL GONZALEZ 1 1 EMERGENCY DEPARTMEN SERVICES T VISIT HIGH/URGE NT SEVERITY HOSPITAL RAMÓN - 1 1 [facility] OUTPATIEN INC T EMERGENCY 50276 RAMÓN 1 1 [facility] DEPARTMEN INC T VISIT LOW/MODER SEVERITY EMERGENCY 32490 YARIEL GALO 1 1 EMERGENCY CHAU DEPARTMEN SERVICES T VISIT MODERATE SEVERITY OFFICE 17814 GRACIE GARRETT Timur OUTPATIEN 1 1 MEDICAL T VISIT SERV 10 FOUNDATIO MINUTES OFFICE 30217 CARLY SPICER OUTPATIEN 1 1 N URGENT ABD T VISIT CARE 15 MINUTES OFFICE 45999 [facility] KENRICKE OUTPATIEN 1 1 N URGENT ABD T VISIT CARE 15 MINUTES OFFICE 61146 [facility] KENRICKE OUTPATIEN 0 0 N URGENT ABD T VISIT CARE 15 MINUTES OFFICE 93285 [facility] DANNIELLE OUTPATIEN 0 0 N URGENT ABD T VISIT CARE 15 MINUTES OFFICE 83339 [facility] CONSULTAT 0 0 ANNITA GALINDO CARDIOLOG NEW/ESTAB Y CLINIC PATIENT 30 MIN EMERGENCY 12739 YARIEL GALO 0 0 EMERGENCY [facility] SERVICES T VISIT MODERATE SEVERITY [facility] 49225 [facility] DANNIELLE OUTPATIEN 0 0 N URGENT ABD T VISIT CARE 15 MINUTES [facility] 63251 [facility] DANNIELLE OUTPATIEN 0 0 N URGENT ABD T VISIT CARE 15 MINUTES EMERGENCY 91867 RAMÓN 0 0 [facility] DEPARTMEN INC T VISIT LOW/MODER SEVERITY HOSPITAL RAMÓN - 0 0 [facility] OUTPATIEN INC T EMERGENCY 22689 YARIEL COTE 0 0 EMERGENCY III [facility] SERVICES T VISIT HIGH/URGE NT SEVERITY OFFICE 42740 [facility] [place] 0 0 [place] T VISIT ORTHOPAED 15 [facility] MINUTES OFFICE 76183 [facility]E OUTPATIEN 0 0 N URGENT ABD T NEW 30 CARE MINUTES OFFICE 83606 GARCÍA TRA GARCÍA TRA OUTPATIEN 0 0 T VISIT 10 MINUTES OFFICE 12248 [facility] OUTPATIEN 0 0 [place] T VISIT ORTHOPAED 15 [facility] MINUTES [facility] - 0 0 N OUTPATIEN COMMUNITY T [facility] EMERGENCY 89362 YARIEL GALO 0 0 EMERGENCY CHAU DEPARTMEN SERVICES T VISIT MODERATE SEVERITY EMERGENCY 19564 YARIEL VERA T 0 0 EMERGENCY DEPARTMEN SERVICES T VISIT MODERATE SEVERITY EMERGENCY 42085 YARIEL ROBERTO DEPT 0 0 EMERGENCY DON VISIT SERVICES HIGH SEVERITY& THREAT FUNCJ EMERGENCY 03672 YARIEL MATTHEW, 0 0 EMERGENCY DANIELA S DEPARTMEN SERVICES T VISIT HIGH/URGE ASSOCIATE NT S SEVERITY HOSPITAL RAMÓN - 0 0 [facility] OUTPATIEN INC T EMERGENCY 60156 RAMÓN 0 0 [facility] DEPARTMEN INC T VISIT LOW/MODER SEVERITY EMERGENCY 00229 [facility] 0 [facility]/MODER SEVERITY [facility] - 0 0 [facility]ER[facility] 46968 GRACIE MOHAN 0 0 MEDICAL GAIL DEPARTMEN SERV T VISIT FOUNDATIO MODERATE SEVERITY EMERGENCY 55635 YARIEL MATTHEW, DEPT 0 0 EMERGENCY DANIELA S VISIT SERVICES HIGH SEVERITY& ASSOCIATE THREAT S FUNJ EMERGENCY 00352 RAMÓN 0 0 [facility] DEPARTMEN INC T VISIT LOW/MODER SEVERITY HOSPITAL RAMÓN - 0 0 [facility] OUTPATIEN INC T HOSPITAL RAMÓN - 0 0 [facility] OUTPATIEN INC T EMERGENCY 27993 RAMÓN 0 0 [facility] DEPARTMEN INC T VISIT LOW/MODER SEVERITY EMERGENCY 21039 YARIEL GIL 0 0 EMERGENCY GRE DEPARTMEN SERVICES T VISIT MODERATE SEVERITY HOSPITAL RAMÓN - 0 0 [facility] OUTPATIEN INC T EMERGENCY 85699 RAMÓN 0 0 [facility] DEPARTMEN INC T VISIT LIMITED/M INOR PROB EMERGENCY 82682 YARIEL MATTHEW, 0 0 EMERGENCY DANIELA S DEPARTMEN SERVICES T VISIT HIGH/URGE ASSOCIATE NT S SEVERITY EMERGENCY 10878 [place] 0 0 [facility] T VISIT MODERATE SEVERITY [facility] [place] [facility] EMERGENC[facility] 39930 YARIEL WATT 0 0 EMERGENCY DEPARTMEN SERVICES T VISIT HIGH/URGE NT SEVERITY EMERGENCY 17023 YARIEL CHARLES, 0 0 EMERGENCY ANGELY DEPARTMEN SERVICES T VISIT MODERATE ASSOCIATE SEVERITY S EMERGENCY 87573 YARIEL BARROSO, 0 0 EMERGENCY VALERIE DEPARTMEN SERVICES T VISIT HIGH/URGE ASSOCIATE NT S SEVERITY EMERGENCY 15461 [place] 0 0 [facility] T VISIT MODERATE SEVERITY [facility] [place] [facility] EMERGENCY 36817 [facility], 0 0 JEFFY Mills DEPARTMEN EMERGENCY T VISIT PHYS INC MODERATE SEVERITY OFFICE 47273 MIGDALIA NEGRON, OUTPATIEN 0 0 BOY Quinn T NEW 30 MINUTES EMERGENCY 15913 [facility] 0 JEFFY Mills DEPARTMEN EMERGENCY T VISIT PHYS [facility] MODERATE SEVERITY EMERGENCY [address]70[address] [facility] 0 0 HOSPITAL DEPARTMEN T VISIT MODERATE SEVERITY [facility] - 0 0 HOSPITAL OUTPATIEN T EMERGENCY 88292 [place], 0 0 JEFFY Quinn DEPARTMEN EMERGENCY T VISIT SERV PC HIGH/URGE NT SEVERITY [facility] [place] [facility] EMERGENCY 75876 [place] 0 0 [facility] T VISIT MODERATE SEVERITY EMERGENCY 62291 [facility], 0 0 JEFFY DO DEANNA, [facility] NAREN O T VISIT PHYS INC MODERATE SEVERITY EMERGENCY 50955 [facility] 0 0 JEFFY , [place] DEPARTMEN EMERGENCY M T VISIT PHYS INC MODERATE SEVERITY EMERGENCY 55020 [place] 0 0 [facility] T VISIT MODERATE SEVERITY [facility] [place] - 0 0 [facility] T HOSPITAL UNIVERSIT - 0 0 Y [facility] T EMERGENCY 77869 RAMÓN 0 0 MEM HOS[facility] DEPARTMEN INC T VISIT LIMITED/M INOR PROB EMERGENCY 30700 [place] ENEIDA, 0 0 MEDICAL YOSELIN C DEPARTMEN SERV T VISIT FOUNDATIO LOW/MODER SEVERITY EMERGENCY 56293 YARIEL BARROSO, 0 0 EMERGENCY VALERIE [facility] SERVICES T VISIT MODERATE ASSOCIATE SEVERITY S EMERGENCY 51566 [facility] JEFFY DEPARTMEN EMERGENCY T VISIT PHYS INC MODERATE SEVERITY EMERGENCY 85007 [facility], T 0 0 JEFFY DEPARTMEN EMERGENCY T VISIT PHYS INC MODERATE SEVERITY EMERGENCY 33023 [facility] 0 0 JEFFY - YAOA, [facility] EMERGENCY BLANCO T VISIT PHYS INC M MODERATE SEVERITY HOSPITAL UNIVERSIT - 0 0 [facility] T EMERGENCY 01848 UNIVERSIT 0 0 [facility] T VISIT MODERATE SEVERITY EMERGENCY 22043 [facility], 0 0 JEFFY MERVIN M DEPARTMEN EMERGENCY T VISIT PHYS INC MODERATE SEVERITY EMERGENCY 47862 [place] 0 0 [facility] T VISIT LOW/MODER SEVERITY [facility] [place] [facility] EMERGENCY 06004 GRACIE ANISA 0 0 MEDICAL I, MORELIA DEPARTMEN SERV A T VISIT FOUNDATIO MODERATE SEVERITY EMERGENCY 97901 [place] 0 0 [facility] T VISIT LOW/MODER SEVERITY [facility] [place] [facility] T EMERGENCY 91656 [facility] 9 9 JEFFY [facility] EMERGENCY T VISIT PHYS INC MODERATE SEVERITY EMERGENCY 22704 [place] 9 9 [facility] T VISIT LOW/MODER SEVERITY [facility]OSP[facility] [place] - 9 9 [facility] T EMERGENCY 77410 [facility], 9 9 JEFFY NAREN Maynard [facility] EMERGENCY T VISIT PHYS INC MODERATE SEVERITY EMERGENCY 33989 [facility], 9 9 JEFFY Mills [facility] EMERGENCY T VISIT PHYS INC MODERATE SEVERITY EMERGENCY 65107 [facility], 9 9 JEFFY HIEU [facility] EMERGENCY T VISIT PHYS INC HIGH/URGE NT SEVERITY HOSPITAL [facility] - 9 9 [facility] 48122 [facility] 9 9 [facility] LOW/MODER SEVERITY EMERGENCY 28411 [facility], T [address] [facility] EMERGENCY T VISIT PHYS INC MODERATE SEVERITY EMERGENCY 06014 [facility], 9 9 JEFFY SMITH [facility] EMERGENCY A T VISIT PHYS INC MODERATE SEVERITY [facility] [place] [facility] 44936 [facility] JEFFY SARAH [facility] EMERGENCY A T VISIT PHYS INC MODERATE SEVERITY EMERGENCY 49728 [place] 9 9 [facility] T VISIT LOW/MODER SEVERITY [facility] [place] - 9 9 [facility] T OFFICE 49214 [facility] 9 9 , QUITA QUITA ION NEW/ESTAB PATIENT 40 MIN EMERGENCY 06325 [facility] JEFFY DEPARTMEN EMERGENCY SANJOYDEB T VISIT PHYS INC MODERATE SEVERITY EMERGENCY 12924 [facility] 9 9 HOSPITAL DEPARTMEN T VISIT LOW/MODER SEVERITY HOSPITAL [facility] - 9 9 HOSPITAL OUTPATIEN T EMERGENCY 70309 [facility] 9 9 [facility] DEPARTMEN INC T VISIT LOW/MODER SEVERITY [facility] [place] - 9 9 [facility] OUTPATIEN INC T EMERGENCY 09130 YARIEL MATTHEW, 9 9 EMERGENCY [facility] DEPARTMEN SERVICES T VISIT MODERATE ASSOCIATE SEVERITY S EMERGENCY 71237 [facility], 9 9 JEFFY IDA DEPARTMEN EMERGENCY T VISIT PHYS INC MODERATE SEVERITY EMERGENCY 74482 [facility], 9 9 JEFFY Mills DEPARTMEN EMERGENCY T VISIT PHYS INC MODERATE SEVERITY [facility] [place] - 9 9 [facility] OUTPATIEN INC T EMERGENCY 13392 [facility] 9 9 [facility] DEPARTMEN INC T VISIT LOW/MODER SEVERITY EMERGENCY 17989 YARIEL MATTHEW, 9 9 EMERGENCY DANIELA DEPARTMEN SERVICES T VISIT MODERATE ASSOCIATE SEVERITY S HOSPITAL [facility] - 9 9 HOSPITAL OUTPATIEN T EMERGENCY 68416 [facility], 9 9 JEFFY Kai Martinez DEPARTMEN EMERGENCY T VISIT PHYS INC MODERATE SEVERITY EMERGENCY 79829 [facility] 9 9 HOSPITAL DEPARTMEN T VISIT LOW/MODER SEVERITY HOSPITAL [facility] - 9 9 HOSPITAL OUTPATIEN T EMERGENCY 78518 [facility], 9 9 JEFFY DORIS Freeman DEPARTMEN EMERGENCY T VISIT PHYS INC MODERATE SEVERITY EMERGENCY 92893 [facility] 9 9 HOSPITAL DEPARTMEN T VISIT LOW/MODER SEVERITY EMERGENCY 56630 [facility], 9 9 JEFFY SMITH DEPARTMEN EMERGENCY A T VISIT PHYS INC MODERATE SEVERITY EMERGENCY 33167 YARIEL MATTHEW, 9 9 [facility] T VISIT MODERATE ASSOCIATE SEVERITY S EMERGENCY 52745 [facility] 9 9 [facility] DEPARTMEN INC T VISIT LOW/MODER SEVERITY HOSPITAL [facility] - 9 9 [facility] OUTPATIEN INC T [facility] [place] [facility] 65642 [facility] 9 JEFFY DANIELA B DEPARTMEN EMERGENCY T VISIT PHYS INC MODERATE SEVERITY HOSPITAL RAMÓ[facility] - 9 9 [facility] 51088 YARIEL MATTHEW, 9 9 EMERGENCY [facility] SERVICES T VISIT HIGH/URGE ASSOCIATE NT S SEVERITY EMERGENCY 54267 RAMÓN 9 9 [facility] DEPARTMEN INC T VISIT LOW/MODER SEVERITY EMERGENCY 18954 [facility], T 9 9 JEFFY DEPARTMEN EMERGENCY T VISIT PHYS INC MODERATE SEVERITY OFFICE 10231 [facility] OUTPATIEN 9 9 LYNDSAY G LYNDSAY G T VISIT 15 MINUTES EMERGENCY 06451 [facility] PHYS INC MODERATE SEVERITY [facility] 90504 [facility] 9 JEFFY DANIELA B DEPARTMEN EMERGENCY T VISIT PHYS INC MODERATE SEVERITY EMERGENCY 06324 [facility] 9 9 [facility] T VISIT LOW/MODER SEVERITY HOSPITAL RAM[facility] - 9 9 [facility] OUTPATIEN INC T EMERGENCY 47182 YARIEL MATTHEW, 9 9 [facility] T VISIT MODERATE ASSOCIATE SEVERITY S EMERGENCY 58965 RAMÓN 9 9 [facility] DEPARTMEN INC T VISIT LOW/MODER SEVERITY EMERGENCY 02145 [facility], T 9 9 JEFFY [facility] EMERGENCY T VISIT PHYS INC MODERATE SEVERITY [facility]OSP[facility] RAM[facility]N - 9 9 [facility] OUTPATIEN INC T EMERGENCY 67104 YARIEL DORAN, 9 9 [facility] O T VISIT LOW/MODER ASSOCIATE SEVERITY S EMERGENCY 76367 [facility], T 9 9 JEFFY [facility] EMERGENCY T VISIT PHYS INC MODERATE SEVERITY EMERGENCY 83706 YARIEL MUÑOZ, DEPT 9 9 EMERGENCY [facility] VISIT SERVICES HIGH SEVERITY& ASSOCIATE THREAT S FUN EMERGENCY 55799 RAMÓN 9 9 [facility] DEPARTMEN INC T VISIT MODERATE SEVERITY HOSPITAL RAMÓN - 9 9 [facility] UNIVERSIT [facility] 9 9 [facility] T EMERGENCY [address] [facility], 9 9 JEFFY VALERIE Dominguez [facility] EMERGENCY T VISIT PHYS INC MODERATE SEVERITY EMERGENCY 11179 [facility] 9 9 [facility] T VISIT LOW/MODER SEVERITY EMERGENCY 15283 [facility] 9 9 [facility] T VISIT LIMITED/M INOR PROB OFFICE 90799 [facility] 9 9 , QUITA DEVLIN ION NEW/ESTAB PATIENT 60 MIN HOSPITAL [place] - 9 9 [facility] T EMERGENCY 56405 [place] 9 9 [facility] T VISIT LIMITED/M INOR PROB EMERGENCY 51029 [facility] 9 9 JEFFY MERVIN [facility] EMERGENCY T VISIT PHYS INC MODERATE SEVERITY EMERGENCY 15685 [facility] 9 [facility] T VISIT MODERATE SEVERITY [facility] [place] - 9 9 [facility] T EMERGENCY 76430 [facility], 9 9 JEFFY Mckeon DEPARTMEN EMERGENCY T VISIT PHYS INC LOW/MODER SEVERITY HOSPITAL [facility]N - 9 9 [facility] OUTPATI[facility] INC T EMERGENCY 62746 [place] 9 9 [facility] T VISIT MODERATE SEVERITY EMERGENCY 03579 RAMÓ[facility] 9 9 [facility] DEPARTMEN INC T VISIT LIMITED/M INOR PROB EMERGENCY 87645 YARIEL RICHARDSON, 9 9 EMERGENCY VALERIE P DEPARTMEN SERVICES T VISIT MODERATE ASSOCIATE SEVERITY [facility] RAM[facility]N - 9 9 [facility] OUTPATIEN INC T [facility] 25758 [facility] ANNITA PARKER DEPARTMEN EMERGENCY T VISIT PHYS INC MODERATE SEVERITY EMERGENCY 42291 [facility] 9 9 [facility] T VISIT LIMITED/M INOR PROB HOSPITAL [facility] - 9 9 [facility] 61448 [facility] 9 9 JEFFY Mills DEPARTMEN EMERGENCY T VISIT PHYS INC MODERATE SEVERITY EMERGENCY 84600 [facility] 9 9 [facility] T VISIT LIMITED/M INOR PROB EMERGENCY 77258 GRACIE SOLORIO, 9 9 CORBIN Martinez DEPARTMEN SERV T VISIT FOUNDATIO MODERATE SEVERITY HOSPITAL UNIVERSIT - 9 9 [facility] T EMERGENCY 46839 [place] 9 9 [facility] T VISIT LOW/MODER SEVERITY [facility] 05098 [facility], 9 9 JEFFY Mckeon DEPARTMEN EMERGENCY T VISIT PHYS INC MODERATE SEVERITY EMERGENCY 45961 [facility], 9 9 JEFFY Hdz DEPARTMEN EMERGENCY T VISIT PHYS INC MODERATE SEVERITY EMERGENCY 62919 JOESPH COLLADO 9 9 JEFFY KINGSLEY Freeman [facility] EMERGENCY T VISIT PHYS INC MODERATE SEVERITY HOSPITAL [place] - 9 9 [facility] H[facility]PITAL UNIVERSIT - 9 9 Y [facility] T OFFICE 19706 RAMON NAVARRO, [facility] 9 9 LYNDSAY G LYNDSAY G T VISIT 15 MINUTES EMERGENCY 55869 GRACIE SOLORIO, 9 9 MEDICAL MERVIN E [facility] SERV T VISIT FOUNDATIO HIGH/URGE NT SEVERITY HOSPITAL UNIVERSIT - 9 9 Y [facility] T EMERGENCY 95367 [facility] 8 8 JEFFY [facility] EMERGENCY T VISIT PHYS INC MODERATE SEVERITY HOSPITAL [facility] 8 8 N [facility] OFFICE 19469 RAMON NAVARRO, CONSULTAT 8 8 LYNDSAY G LYNDSAY G ION NEW/ESTAB PATIENT 60 MIN OFFICE 67212 CARDIOLOG DINO, CONSULTAT 8 8 Y EMILIE S ION ASSOCIATE NEW/ESTAB S OF PATIENT [place] 60 MIN HOSPITAL RAMÓN - 8 8 [facility] 72067 [place] 8 8 MEM [facility] T VISIT LOW/MODER SEVERITY EMERGENCY 63444 [facility] 8 8 JEFFY Trung CLAERO, VISIT EMERGENCY [place] [facility]IGH PHYS INC M SEVERITY& THREAT [facility]PITAL [facility] 8 8 [facility] 96128 [facility] 8 8 N [facility] T VISIT HOSPITAL HIGH/URGE NT SEVERITY EMERGENCY 02801 [facility] 8 8 N [facility] T VISIT HOSPITAL LOW/MODER SEVERITY EMERGENCY 27344 [facility], 8 8 JEFFY SARAH [facility] EMERGENCY A T VISIT PHYS INC MODERATE SEVERITY HOSPITAL [place] [address] 8 N [facility] T HOSPITAL OFFICE 20562 GRACIE GARRETT, Timur CONSULTAT 8 8 MEDICAL D ION SERV NEW/ESTAB FOUNDATIO PATIENT 40 MIN EMERGENCY 95540 [facility] DE[facility] 8 8 JEFFY SMITH VISIT EMERGENCY A HIGH PHYS INC SEVERITY& THREAT FUNJ [facility] UNIVERS - 8 Y [facility] T EMERGENCY 65581 [facility] 8 8 Y [facility] T VISIT LIMITED/M INOR PROB EMERGENCY 83555 GRACIE WELLS 8 8 MEDICAL , C [facility] T VISIT FOUNDATIO MODERATE SEVERITY EMERGENCY 22340 GRACIE ANISA 8 8 MEDICAL I, MORELIA [facility] SERV A T VISIT FOUNDATIO MODERATE SEVERITY HOSPITAL UNIVERS - 8 8 Y [facility] T EMERGENCY 06014 [facility] 8 8 Y [facility] T VISIT HIGH/URGE NT SEVERITY EMERGENCY 19703 JOESPH HERMOSILLO DEPT 8 8 JEFFY KIDD VISIT EMERGENCY HIGH PHYS INC SEVERITY& THREAT FUNCJ
--- OUTSIDE RECORDS SUMMARY | 2017-02-21 09:37 | External Medical Summary Rpt | CCD ---
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 1/> AREAS TRACTION MECHANICA L CHIROPRAC 98430 ESCALANTE JULIO ESCALANTE JULIO TIC 1 MANIPULAT [place] SPINAL 3-4 REGIONS MANUAL 26850 ESCALANTE JULIO ESCALANTE JULIO THERAPY 1 TQS 1/> REGIONS EACH 15 MINUTES CHIROPRAC 35781 ESCALANTE JULIO ESCALANTE JULIO TIC 1 MANIPULAT [place] SPINAL 3-4 REGIONS APPL 03206 ESCALANTE JULIO ESCALANTE JULIO MODALITY 1 1/> AREAS TRACTION MECHANICA L APPL 56568 ESCALANTE JULIO ESCALANTE JULIO MODALITY 1 1/> AREAS ELEC STIMJ UNATTENDE D APPLICATI 86487 ESCALANTE JULIO ESCALANTE JULIO ON 1 MODALITY 1/> AREAS HOT/COLD PACKS THERAPEUT 39509 ESCALANTE JULIO ESCALANTE JULIO IC PX 1/> 1 AREAS EACH 15 MIN EXERCISES MANUAL 82076 ESCALANTE JULIO ESCALANTE JULIO THERAPY 1 TQS 1/> REGIONS EACH 15 MINUTES CHIROPRAC 93044 ESCALANTE JULIO ESCALANTE JULIO TIC 1 MANIPLTV TX EXTRASPIN AL 1/> REGION CHIROPRA 55733 ESCALANTE JULIO ESCALANTE JULIO TIC 1 MANIPLTV TX EXTRASPIN AL 1/> REGION MANUAL 44350 ESCALANTE JULIO ESCALANTE JULIO THERAPY 1 TQS 1/> REGIONS EACH 15 MINUTES THERAPEUT 30518 ESCALANTE JULIO ESCALANTE JULIO IC PX 1/> 1 AREAS EACH 15 MIN EXERCISES APPLICATI 16667 ESCALANTE JULIO ESCALANTE JULIO ON 1 MODALITY 1/> AREAS HOT/COLD PACKS APPL 87864 ESCALANTE JULIO ESCALANTE JULIO MODALITY 1 1/> AREAS ELEC STIMJ UNATTENDE D APPL 85255 ESCALANTE JULIO ESCALANTE JULIO MODALITY 1 1/> AREAS TRACTION MECHANICA L CHIROPRAC 27719 ESCALANTE JULIO ESCALANTE JULIO TIC 1 MANIPULAT [place] SPINAL 3-4 REGIONS CHIROPRAC 81956 ESCALANTE JULIO ESCALANTE JULIO TIC 1 MANIPULAT [place] SPINAL 3-4 REGIONS APPL 69411 ESCALANTE JULIO ESCALANTE JULIO MODALITY 1 1/> AREAS TRACTION MECHANICA L APPL 34451 ESCALANTE JULIO ESCALANTE JULIO MODALITY 1 1/> AREAS ELEC STIMJ UNATTENDE D APPLICATI 64866 ESCALANTE JULIO ESCALANTE JULIO ON 1 MODALITY 1/> AREAS HOT/COLD PACKS THERAPEUT 97019 ESCALANTE JULIO ESCALANTE JULIO IC PX 1/> 1 AREAS EACH 15 MIN EXERCISES MANUAL 07317 ESCALANTE JULIO ESCALANTE JULIO THERAPY 1 TQS 1/> REGIONS EACH 15 MINUTES CHIROPRAC 74767 ESCALANTE JULIO ESCALANTE JULIO TIC 1 MANIPLTV TX EXTRASPIN AL 1/> REGION CHIROPRAC 02817 ESCALANTE JULIO ESCALANTE JULIO TIC 1 MANIPLTV TX EXTRASPIN AL 1/> REGION APPL 77414 ESCALANTE JULIO ESCALANTE JULIO MODALITY 1 1/> AREAS ELEC STIMJ UNATTENDE D THERAPEUT 31614 ESCALANTE JULIO ESCALANTE JULIO IC PX 1/> 1 AREAS EACH 15 MIN EXERCISES APPLICATI 88760 ESCALANTE JULIO ESCALANTE JULIO ON 1 MODALITY 1/> AREAS HOT/COLD PACKS APPL 64316 ESCALANTE JULIO ESCALANTE JULIO MODALITY 1 1/> AREAS TRACTION MECHANICA L CHIROPRAC 06473 ESCALANTE JULIO ESCALANTE JULIO TIC 1 MANIPULAT [place] SPINAL 3-4 REGIONS MANUAL 23676 ESCALANTE JULIO ESCALANTE JULIO THERAPY 1 TQS 1/> REGIONS EACH 15 MINUTES MANUAL 85368 ESCALANTE JULIO ESCALANTE JULIO THERAPY 1 TQS 1/> REGIONS EACH 15 MINUTES CHIROPRA 68927 ESCALANTE JULIO ESCALANTE JULIO TIC 1 MANIPULAT [place] SPINAL 3-4 REGIONS APPL 23888 ESCALANTE JULIO ESCALANTE JULIO MODALITY 1 1/> AREAS TRACTION MECHANICA L APPLICATI 61011 ESCALANTE JULIO ESCALANTE JULIO ON 1 MODALITY 1/> AREAS HOT/COLD PACKS THERAPEUT 22106 ESCALANTE JULIO ESCALANTE JULIO IC PX 1/> 1 AREAS EACH 15 MIN EXERCISES APPL 99133 ESCALANTE JULIO ESCALANTE JULIO MODALITY 1 1/> AREAS ELEC STIMJ UNATTENDE D CHIROPRAC 47928 ESCALANTE JULIO ESCALANTE JULIO TIC 1 MANIPLTV TX EXTRASPIN AL 1/> REGION CHIROPRAC 33243 ESCALANTE JULIO ESCALANTE JULIO TIC 1 MANIPLTV TX EXTRASPIN AL 1/> REGION APPL 05693 ESCALANTE JULIO ESCALANTE JULIO MODALITY 1 1/> AREAS ELEC STIMJ UNATTENDE D THERAPEUT 51613 ESCALANTE JULIO ESCALANTE JULIO IC PX 1/> 1 AREAS EACH 15 MIN EXERCISES APPLICATI 50179 ESCALANTE JULIO ESCALANTE JULIO ON 1 MODALITY 1/> AREAS HOT/COLD PACKS APPL 64078 ESCALANTE JULIO ESCALANTE JULIO MODALITY 1 1/> AREAS TRACTION MECHANICA L CHIROPRAC 14190 ESCALANTE JULIO ESCALANTE JULIO TIC 1 MANIPULAT [place] SPINAL 3-4 REGIONS MANUAL 26102 ESCALANTE JULIO ESCALANTE JULIO THERAPY 1 TQS 1/> REGIONS EACH 15 MINUTES MANUAL 53253 ESCALANTE JULIO ESCALANTE JULIO THERAPY 1 TQS 1/> REGIONS EACH 15 MINUTES CHIROPRA 45361 ESCALANTE JULIO ESCALANTE JULIO TIC 1 MANIPULAT [place] SPINAL 3-4 REGIONS APPL 88731 ESCALANTE JULIO ESCALANTE JULIO MODALITY 1 1/> AREAS TRACTION MECHANICA L APPLICATI 84116 ESCALANTE JULIO ESCALANTE JULIO ON 1 MODALITY 1/> AREAS HOT/COLD PACKS THERAPEUT 69493 ESCALANTE JULIO ESCALANTE JULIO IC PX 1/> 1 AREAS EACH 15 MIN EXERCISES APPL 72091 ESCALANTE JULIO ESCALANTE JULIO MODALITY 1 1/> AREAS ELEC STIMJ UNATTENDE D CHIROPRAC 54766 ESCALANTE JULIO ESCALANTE JULIO TIC 1 MANIPLTV TX EXTRASPIN AL 1/> REGION CHIROPRAC 05993 ESCALANTE JULIO ESCALANTE JULIO TIC 1 MANIPLTV TX EXTRASPIN AL 1/> REGION APPL 62415 ESCALANTE JULIO ESCALANTE JULIO MODALITY 1 1/> AREAS ELEC STIMJ UNATTENDE D RADEX 05353 [place] GERALD JAM FOOT 1 MEDICAL COMPLETE SERV MINIMUM 3 FOUNDATIO VIEWS THERAPEUT 29665 ESCALANTE JULIO ESCALANTE JULIO IC PX 1/> 1 AREAS EACH 15 MIN EXERCISES APPLICATI 82269 ECSALANTE JULIO ESCALANTE JULIO ON 1 MODALITY 1/> AREAS HOT/COLD PACKS APPL 55426 ESCALANTE JULIO ESCALANTE JULIO MODALITY 1 1/> AREAS TRACTION MECHANICA L CHIROPRAC 74638 ESCALANTE JULIO ESCALANTE JULIO TIC 1 MANIPULAT [place] SPINAL 3-4 REGIONS MANUAL 25623 ESCALANTE JULIO ESCALANTE JULIO THERAPY 1 TQS 1/> REGIONS EACH 15 MINUTES RADEX 43012 [facility] [place] TRISH FOOT 1 RADIOLOGY RHO COMPLETE MINIMUM 3 VIEWS APPL 11151 ESCALANTE JULIO ESCALANTE JULIO MODALITY 1 1/> AREAS ELEC STIMJ UNATTENDE D CHIROPRAC 56390 ESCALANTE JULIO ESCALANTE JULIO TIC 1 MANIPLTV TX EXTRASPIN AL 1/> REGION MANUAL 88374 ESCALANTE JULIO ESCALANTE JULIO THERAPY 1 TQS 1/> REGIONS EACH 15 MINUTES CHIROPRAC 41280 ESCALANTE JULIO ESCALANTE JULIO TIC 1 MANIPULAT [place] SPINAL 3-4 REGIONS APPL 08967 ESCALANTE JULIO ESCALANTE JULIO MODALITY 1 1/> AREAS TRACTION MECHANICA L APPLICATI 83072 ESCALANTE JULIO ESCALANTE JULIO ON 1 MODALITY 1/> AREAS HOT/COLD PACKS THERAPEUT 46886 ESCALANTE JULIO ESCALANTE JULIO IC PX 1/> 1 AREAS EACH 15 MIN EXERCISES THERAPEUT 55868 ESCALANTE JULIO ESCALANTE JULIO IC PX 1/> 1 AREAS EACH 15 MIN EXERCISES APPLICATI 12124 ESCALANTE JULIO ESCALANTE JULIO ON 1 MODALITY 1/> AREAS HOT/COLD PACKS APPL 08584 ESCALANTE JULIO ESCALANTE JULIO MODALITY 1 1/> AREAS TRACTION MECHANICA L CHIROPRAC 88534 ESCALANTE JULIO ESCALANTE JULIO TIC 1 MANIPULAT [place] SPINAL 3-4 REGIONS MANUAL 37113 ESCALANTE JULIO ESCALANTE JULIO THERAPY 1 TQS 1/> REGIONS EACH 15 MINUTES CHIROPRAC 18162 ESCALANTE JULIO ESCALANTE JULIO TIC 1 MANIPLTV TX EXTRASPIN AL 1/> REGION APPL 43288 ESCALANTE JULIO ESCALANTE JULIO MODALITY 1 1/> AREAS ELEC STIMJ UNATTENDE D APPL 97334 ESCALANTE JULIO ESCALANTE JULIO MODALITY 1 1/> AREAS ELEC STIMJ UNATTENDE D CHIROPRAC 99680 ESCALANTE JULIO ESCALANTE JULIO TIC 1 MANIPLTV TX EXTRASPIN AL 1/> REGION MANUAL 41410 ESCALANTE JULIO ESCALANTE JULIO THERAPY 1 TQS 1/> REGIONS EACH 15 MINUTES CHIROPRAC 43344 ESCALANTE JULIO ESCALANTE JULIO TIC 1 MANIPULAT [place] SPINAL 3-4 REGIONS APPL 83843 ESCALANTE JULIO ESCALANTE JULIO MODALITY 1 1/> AREAS TRACTION MECHANICA L APPLICATI 42287 ESCALANTE JULIO ESCALANTE JULIO ON 1 MODALITY 1/> AREAS HOT/COLD PACKS THERAPEUT 80667 ESCALANTE JULIO ESCALANTE JULIO IC PX 1/> 1 AREAS EACH 15 MIN EXERCISES RADEX 33584 [facility] [place] KOSTELIC SPINE 1 RADIOLOGY VINICIO LUMBOSACR AL 2/3 VIEWS CHIROPRAC 20273 ESCALANTE JULIO ESCALANTE JULIO TIC 1 MANIPLTV TX EXTRASPIN AL 1/> REGION MANUAL 04767 ESCALANTE JULIO ESCALANTE JULIO THERAPY 1 TQS 1/> REGIONS EACH 15 MINUTES APPLICATI 00147 ESCALANTE JULIO ESCALANTE JULIO ON 1 MODALITY 1/> AREAS HOT/COLD PACKS THERAPEUT 03330 ESCALANTE JULIO ESCALANTE JULIO IC PX 1/> 1 AREAS EACH 15 MIN EXERCISES APPL 70785 ESCALANTE JULIO ESCALANTE JULIO MODALITY 1 1/> AREAS ELEC STIMJ UNATTENDE D APPL 39512 ESCALANTE JULIO ESCALANTE JULIO MODALITY 1 1/> AREAS TRACTION MECHANICA L CHIROPRAC 59150 ESCALANTE JULIO ESCALANTE JULIO TIC 1 MANIPULAT [place] SPINAL 3-4 REGIONS CHIROPRAC 25185 ESCALANTE JULIO ESCALANTE JULIO TIC 1 MANIPULAT [place] SPINAL 3-4 REGIONS APPL 41397 ESCALANTE JULIO ESCALANTE JULIO MODALITY 1 1/> AREAS TRACTION MECHANICA L APPL 15833 ESCALANTE JULIO ESCALANTE JULIO MODALITY 1 1/> AREAS ELEC STIMJ UNATTENDE D THERAPEUT 05684 ESCALANTE JULIO ESCALANTE JULIO IC PX 1/> 1 AREAS EACH 15 MIN EXERCISES APPLICATI 94200 ESCALANTE JULIO ESCALANTE JULIO ON 1 MODALITY 1/> AREAS HOT/COLD PACKS MANUAL 41340 ESCALANTE JULIO ESCALANTE JULIO THERAPY 1 TQS 1/> REGIONS EACH 15 MINUTES CHIROPRAC 12375 ESCALANTE JULIO ESCALANTE JULIO TIC 1 MANIPLTV TX EXTRASPIN AL 1/> REGION CHIROPRAC 19507 ESCALANTE JULIO ESCALANTE JULIO TIC 1 MANIPLTV TX EXTRASPIN AL 1/> REGION MANUAL 17059 ESCALANTE JULIO ESCALANTE JULIO THERAPY 1 TQS 1/> REGIONS EACH 15 MINUTES APPLICATI 36853 ESCALANTE JULIO ESCALANTE JULIO ON 1 MODALITY 1/> AREAS HOT/COLD PACKS THERAPEUT 07191 ESCALANTE JULIO ESCALANTE JULIO IC PX 1/> 1 AREAS EACH 15 MIN EXERCISES APPL 26620 ESCALANTE JULIO ESCALANTE JULIO MODALITY 1 1/> AREAS ELEC STIMJ UNATTENDE D APPL 43791 ESCALANTE JULIO ESCALANTE JULIO MODALITY 1 1/> AREAS TRACTION MECHANICA L CHIROPRAC 33835 ESCALANTE JULIO ESCALANTE JULIO TIC 1 MANIPULAT [place] SPINAL 3-4 REGIONS MANUAL 00300 ESCALANTE JULIO ESCALANTE JULIO THERAPY 1 TQS 1/> REGIONS EACH 15 MINUTES CHIROPRAC 85965 ESCALANTE JULIO ESCALANTE JULIO TIC 1 MANIPULAT [place] SPINAL 3-4 REGIONS APPL 04460 ESCALANTE JULIO ESCALANTE JULIO MODALITY 1 1/> AREAS TRACTION MECHANICA L APPLICATI 61957 ESCALANTE JULIO ESCALANTE JULIO ON 1 MODALITY 1/> AREAS HOT/COLD PACKS THERAPEUT 74268 ESCALANTE JULIO ESCALANTE JULIO IC PX 1/> 1 AREAS EACH 15 MIN EXERCISES CHIROPRAC 84972 ESCALANTE JULIO ESCALANTE JULIO TIC 1 MANIPLTV TX EXTRASPIN AL 1/> REGION APPL 44249 ESCALANTE JULIO ESCALANTE JULIO MODALITY 1 1/> AREAS ELEC STIMJ UNATTENDE D RADIOLOGI 96758 [facility] [place] OMAR MAT C EXAM 1 RADIOLOGY CHEST 2 VIEWS FRONTAL&L ATERAL RADEX 10727 [facility] SPINE [facility] 2 VIEWS RADEX 71011 [facility] SPINE 1 [facility] 2 VIEWS RADIOLOGI 71545 [facility] C EXAM 1 Y Y CHEST 2 HOSPITAL HOSPITAL VIEWS FRONTAL&L ATERAL RADEX 32701 [facility] [place] LASHAE ELBOW 1 RADIOLOGY DANNI COMPLETE MINIMUM 3 [place] [address] CHIPPS MOSES JAM SURG 1 MARLON & PATHOLOGY XIMENAILIDEBO GROSS&CONCHIS ROSCOPIC EXAM RPR 67457 VENGUSWAM VENGUSWAM UMBILICAL 1 Y CATARINA Y CATARINA HRNA 5 YRS/> REDUCIBLE SIMPLE 47269 YARIEL GALO REPAIR 1 EMERGENCY CHAU SCALP/NEC SERVICES K/AX/MAIRA T/TRUNK 2.5CM/< URNLS DIP 81761 [facility] 1 N N STICK/TAB [facility] LET HOSPITA HOSPITA REAGENT AUTO MICROSCOP Y THERAPEUT 44884 [facility] IC 1 N N PROPHYLAC [facility] TIC/DX HOSPITA HOSPITA INJECTION SUBQ/IM ECG 11980 [facility] ROUTINE 1 N N ECG [facility] W/LEAST HOSPITA HOSPITA 12 LDS TRCG ONLY W/O I&R BASIC 21897 [facility] METABOLIC 1 N N PANEL [facility] CALCIUM HOSPITA HOSPITA TOTAL BLOOD 39971 [facility] COUNT 1 N N SMEAR [facility] MCRSCP HOSPITA HOSPITA W/MNL DIFRNTL WBC COUNT THROMBOPL 30793 [facility] ASTIN 1 N N TIME [facility] PARTIAL HOSPITA HOSPITA PLASMA/WH OLE BLOOD PROTHROMB 36348 [facility] IN TIME 1 N N [facility] HOSPITA HOSPITA BLOOD 39357 [facility] COUNT 1 N N COMPLETE [facility] AUTOMATED HOSPITA HOSPITA COLLECTIO 54205 [facility] N VENOUS 1 N N BLOOD [facility] VENIPUNCT HOSPITA HOSPITA URE RADIOLOGI 17825 [facility] GRACIE GE C EXAM 1 RADIOLOGY CHEST 2 VIEWS FRONTAL&L ATERAL IMMUNOASS 57509 [facility] AY NFCT 1 N URGENT ABD AGT ANTB CARE QUAL/SEMI LOUIE 1 STEP BLOOD 52470 [facility] OCCULT 1 N URGENT ABD PEROXIDAS CARE E ACTV QUAL FECES 1 DETER SERVICES 91061 [facility] PROVIDED 1 N URGENT ABD OFFICE CARE OTH/THN REG SCHED HOURS MRI ANY 39178 [facility] JT LOWER 1 N N EXTREM [facility] W/O HOSPITA HOSPITA CONTRAST MATRL SERVICES 23447 [facility] PROVIDED 1 N URGENT ABD OFFICE CARE OTH/THN REG SCHED HOURS COLLECTIO 83448 [facility] N VENOUS 1 N N BLOOD [facility] VENIPUNCT HOSPITA HOSPITA URE HEPATITIS 70231 [facility] B CORE 1 N N ANTIBODY [facility] HBCAB HOSPITA HOSPITA TOTAL HEPATITIS 40593 [facility] SURF 1 N N ANTIBODY [facility] HBSAB HOSPITA HOSPITA HEPATITIS 94807 [facility] A 1 N N ANTIBODY [facility] HAAB HOSPITA HOSPITA ACUTE 51509 [facility] HEPATITIS 1 N N PANEL [facility] HOSPITA HOSPITA RADIOLOGI 43449 [facility] GRACIE GE C 1 RADIOLOGY EXAMINATI ON KNEE 3 VIEWS THERAPEUT 49425 [facility] IC 1 N URGENT ABD PROPHYLAC CARE TIC/DX INJECTION SUBQ/IM ECG 45444 [facility] ROUTINE 0 ANNITA ADR ECG CARDIOLOG W/LEAST Y CLINIC 12 LDS W/I&R ACUTE 53876 [facility] HEPATITIS 0 N N PANEL [facility] HOSPITA HOSPITA COLLECTIO 70327 [facility] N VENOUS 0 N N BLOOD [facility] [place] [address] [facility] ABDOMINAL 0 N N REAL [facility] TIME HOSPITA HOSPITA W/IMAGE LIMITED LIPID 96873 [facility] PANEL 0 N N [facility] HOSPITA HOSPITA COMPREHEN 47194 [facility] SIVE 0 N N METABOLIC [facility] PANEL HOSPITA HOSPITA COLLECTIO 94336 [facility] N VENOUS 0 N N BLOOD [facility] [place] [address] [facility] THYROID 0 N N STIMULATI [facility] HOSPITA HOSPITA HORMONE TSH SERVICES 14291 [facility] PROVIDED 0 N URGENT ABD OFFICE CARE OTH/THN REG SCHED HOURS MRI 49592 [facility] [place] TRISH SPINAL 0 RADIOLOGY RHO CANAL CERVICAL W/O CONTRAST MATRL RADEX 76061 [place] CELE ELBOW 0 MEDICAL MARIO COMPLETE IMAGING MINIMUM 3 ASS VIEWS SERVICES 85705 [facility] PROVIDED 0 N URGENT ABD OFFICE CARE OTH/[place] [address] [facility] [employer] ACID SERUM BLOOD 35753 [facility] COUNT 0 [employer] COMPLETE AUTO&AUTO DIFRNTL WBC GLUCOSE 80703 [facility] QUANTITAT 0 N URGENT ABD CLARY BLOOD CARE XCPT REAGENT STRIP HEMOGLOBI 46414 [facility] N 0 [employer] GLYCOSYLA THERESA A1C COMPREHEN 56109 [facility] SIVE 0 [employer] METABOLIC PANEL [facility] [address] GARCÍA TRA GARCÍA TRA AMPLT&LAT 0 NCY EA NRV MOTR W/O F-WAVE STD NRV CND 64020 GARCÍA TRA GARCÍA TRA AMPLT&LAT 0 ENCY EA NRV MOTOR W/F-WAVE STD NRV D 06404 GARCÍA TRA GARCÍA TRA AMPLITUDE 0 & LATENCY EACH NERVE SENSORY NDL EMG 1 19059 GARCÍA TRA GARCÍA TRA XTR W/WO 0 RELATED PARASPINA L AREAS RADEX 42072 [facility] ELBOW 0 N N COMPLETE [facility] MINIMUM 3 HOSPITA HOSPITA VIEWS RADEX 73557 [facility] [place] OMAR MAT HAND 0 RADIOLOGY MINIMUM 3 VIEWS RADEX 65775 [facility] [place] O[place] MAT SPINE 0 RADIOLOGY LUMBOSACR AL 2/3 VIEWS RADEX 15458 [facility] [place] O[place] MAT WRIST 0 RADIOLOGY COMPLETE [place] [place] [address] [facility] [place] MAT ABDOMEN 0 RADIOLOGY W/CONTRAS T MATERIAL CT PELVIS 40870 [facility] [place] OMAR MAT 0 RADIOLOGY W/CONTRAS T MATERIAL RADEX 22088 [place] SPINE 0 [facility] [place] LUMBOSACR SERV AL 2/3 FOUNDATIO VIEWS RADEX 67971 RAMÓN RAMÓN SPINE 0 [facility] LUMBOSACR INC INC AL MINIMUM 4 VIEWS RADEX 95681 RAMÓN RAMÓN SPINE 0 [facility] CERVICAL INC INC 6 OR MORE VIEWS RADEX 99315 RAMÓN RAMÓN SPINE 0 [facility] THORACIC INC INC 3 VIEWS RADEX TOE 68449 RAMÓN RAMÓN MINIMUM 0 [facility] 2 VIEWS INC INC RADEX 31046 [facility] [place] OMAR, FOOT 0 RADIOLOGY WILLIAM D COMPLETE MINIMUM 3 VIEWS URNLS DIP 80415 RAMÓN RAMÓN 0 [facility] STICK/TAB INC INC LET REAGENT AUTO MICROSCOP Y URNLS DIP 33258 [place] 0 [facility] STICK/TAB [facility] LET REAGENT AUTO MICROSCOP Y BASIC 29412 [place] METABOLIC 0 [facility] CALCIUM TOTAL BLOOD 31075 [place] [address] [facility] AUTO&AUTO DIFRNTL WBC CUL BACT 24052 JENNIFER [facility]IMUR[facility] XCPT 0 [facility] BLOOD/STO OL AEROBIC ISOL CULTURE 45435 [facility] BACTERIAL [address] [facility] QUANTTATI VE COLONY COUNT URINE SUSCEPTIB 36388 JENNIFER FRIAS LTY STDY 0 [facility] IAL MICRO/AGA R DILUTJ COLLECTIO 07009 [facility] JIM[facility] N VENOUS 0 [facility] VENIPUNCT URE RADEX 84815 [facility] [place] TRISH, ELBOW 0 RADIOLOGY HALLIE G COMPLETE MINIMUM 3 VIEWS DUP-SCAN 90299 [facility] XTR VEINS 0 [facility] UNILATERA L/LIMITED STUDY RADEX 89584 [facility] [place] MARTINEZ, G ELBOW 2 0 RADIOLOGY T VIEWS NONINVASI 39368 [facility] VE 0 Y Y EAR/PULSE [facility] OXIMETRY SINGLE DETER NONINVASI 41973 [facility] VE 0 Y Y EAR/PULSE [facility] OXIMETRY SINGLE DETER RADEX 91729 [facility] & 0 Y Y [facility] MINIMUM 2 VIEWS RADEX 53354 [place] FRANK, FOOT 0 [facility] N COMPLETE SERV MINIMUM 3 FOUNDATIO VIEWS RADEX TOE 49998 [facility] JIM[facility] MINIMUM [address] CUL BACT 18326 [facility] XCPT 9 [facility] BLOOD/STO OL AEROBIC ISOL SUSCEPTIB 40834 [facility] LTY STDY 9 [facility] IAL MICRO/AGA R DILUTJ INJECTION [id number] KETOROLAC TROMETHAM INE PER 15 MG RADEX 61984 [facility] SPINE [address] [place] [address] LUMBOSACR AL 2/3 VIEWS THERAPEUT 38498 [facility] IC [address] [place] [address] PROPHYLAC TIC/DX INJECTION SUBQ/IM STRAPPING 89040 [facility] 9 JEFFY SMITH &/FOOT EMERGENCY A PHYS INC RADEX 52504 [facility] PETER ANDUJAR 9 RADIOLOGY J COMPLETE MINIMUM 3 VIEWS RADIOLOGI 33006 [facility] Lydia ANDUJAR 9 RADIOLOGY J EXAMINATI ON TIBIA & FIBULA 2 VIEWS EXCISION 09-23-200 23843 [facility] PILONIDAL 9 , QUITA , QUITA CYST/SINU S SIMPLE LEVEL III 84340 PATHOLOGY PATHOLOGY SURG 9 & & PATHOLOGY CYTOLOGY CYTOLOGY LAB LAB GROSS&CONCHIS ROSCOPIC EXAM ANES 32720 BRUNA SY 9 ANESTHESI MIKE J MUSC & A GROUP NRV HEAD PSC NECK&POST ERIOR TRUNK BASIC 22425 [facility] METABOLIC 9 [facility] CALCIUM TOTAL BLOOD 45085 [facility] COUNT [address] [facility] AUTO&AUTO DIFRNTL WBC COLLECTIO 93277 [facility] N VENOUS 9 [facility] VENIPUNCT URE SUSCEPTIB 16516 RAMÓN MELGAR LTY STDY 9 [facility] ANTIMICRB INC INC IAL MICRO/AGA R DILUTJ CUL BACT 94583 RAMÓN RAMÓN XCPT 9 [facility] URINE INC INC BLOOD/STO OL AEROBIC ISOL CUL BACT 26404 RAMÓN MELGAR AEROBIC 9 [facility] ADDL INC INC METHS DEFINITIV E EA ISOL RADEX 04871 [facility] [place] SCALF, ANKLE 9 RADIOLOGY BOY E COMPLETE MINIMUM 3 VIEWS RADEX 94633 [facility] [place] SCALF, FOOT 9 RADIOLOGY BOY E COMPLETE MINIMUM 3 VIEWS APPLICATI 64318 [facility] SHORT 9 JEFFY W E LEG EMERGENCY SPLINT PHYS INC CALF FOOT RADEX 05257 [facility] SPINE 9 [facility] AL 2/3 VIEWS RADEX 05890 RAMÓN MELGAR SPINE 9 [facility] LUMBOSACR INC INC AL MINIMUM 4 VIEWS RADIOLOGI 83940 Lydia SALDANA 9 MEDICAL RUY EXAMINATI IMAGING ON PELVIS ASSOCIATE 1/2 S VIEWS 3D 66992 [facility] PORTILLO, RENDERING 9 MEDICAL PITER P IMAGING W/INTERP& ASSOCI[place] [address] [facility] [place] PORTILLO ABDOMEN 9 MEDICAL PITER P W/O IMAGING CONTRAST ASSOCIATE MATERIAL S URNLS DIP 73860 RAMÓN MELGAR 9 [facility] STICK/TAB INC INC LET REAGENT AUTO MICROSCOP Y BASIC 94741 RAMÓN MELGAR METABOLIC 9 [facility] PANEL INC INC CALCIUM TOTAL BLOOD 55705 RAMÓN MELGAR COUNT 9 [facility] COMPLETE INC INC AUTO&AUTO DIFRNTL WBC CT PELVIS 02105 RAMÓN MELGAR W/O 9 [facility] CONTRAST INC INC MATERIAL THERAPEUT 69822 [facility] IC [address] [place] [address] PROPHYLAC TIC/DX INJECTION SUBQ/IM CUL BACT 99595 [facility] XCPT [address] [place] [address] URINE BLOOD/STO OL AEROBIC ISOL SMR PRIM 26751 [facility] SRC [address] [place] [address] GRAM/GIEM SA STAIN BCT FUNGI/GAYATRI L RADEX 59246 CNTRL GRACIE UREÑA, SPINE 9 RADIOLOGY J LUMBOSACR AL 2/3 VIEWS EXCISION 61881 Timur AMIN PILONIDAL 9 MEDICAL D SERV CYST/SINU FOUNDATIO S SIMPLE EXCISION 25092 [facility] PILONIDAL 9 Y Y [facility] CYST/SINU S EXTENSIVE INJECTION J2250 [facility] 9 Y Y MIDAZOLAM [facility] HCL PER 1 MG INJECTION J2270 [facility] MORPHINE 9 Y Y SULFATE [facility] UP TO 10 MG INJECTION J3010 [facility] FENTANYL 9 Y Y CITRATE [facility] 0.1 MG UNCLASSIF J3490 [facility] IED DRUGS 9 Y Y [facility] LEVEL III [address] [place] DIANN SURG 9 MEDICAL BRILL, PATHOLOGY SERV LUIS DANIEL M FOUNDATIO GROSS&CONCHIS ROSCOPIC EXAM INJECTION J2405 [facility] 9 Y Y [facility] PER 1 MG INJECTION J2175 [facility] 9 Y Y MEPERIDIN [facility] E HCL PER 100 MG RINGERS J7120 [facility] LACTATE 9 Y Y INFUSION [facility] UP TO 1000 CC INJECTION J1100 [facility] 9 Y Y DEXAMETHO [facility] SONE SODIUM PHOSPHATE 1 MG ANES [address]16 [place] JENNIFER, INTEG 9 MEDICAL RUI MUSC & SERVICES NRV HEAD NECK&POST ERIOR TRUNK HEPATIC 61766 [facility] FUNCTION 9 [place] INC [facility] INC PANEL INJECTION J2765 [facility] 9 Y Y METOCLOPR [facility] AMIDE HCL UP TO 10 MG INFUSION J7030 [facility] NORMAL 9 Y Y SALINE [facility] SOLUTION 1000 CC INJECTION J1885 [facility] 9 Y Y KETOROLAC [facility] TROMETHAM INE PER 15 MG INJECTION J1200 [facility] 9 Y [facility] UP TO 50 MG MYOCRD 78663 CARDIOLOG DINO, PRFUJ STD 8 Y EMILIE S EJEC FXJ ASSOCIATE S OF [place] CV STRS 20509 CARDIOLOG DINO, TST 8 Y EMILIE Mckeon XERS&/OR ASSOCIATE RX CONT S OF ECG [place] W/SI&R MYOCRD 58872 CARDIOLOG DINO PRFUJ STD 8 Y EMILIE Mckeon WALL ASSOCIATE MOTION S OF QUAL/LOUIE [place] STD MYOCRD 51117 CARDIOLOG DINO, PRFUJ IMG 8 Y EMILIE Mckeon TOMOG ASSOCIATE SPECT DISINTEGRATOR S OF STD [place] COMPREHEN 81012 [facility] SIVE 8 N N [facility] BLOOD 27715 [facility] COUNT 8 N N COMPLETE [facility] AUTO&AUTO [facility] DIFRNTL WBC LIPID 58715 [facility] PANEL [address] [facility] COLLECTIO 86518 [facility] N VENOUS 8 N N BLOOD [facility] U[facility] ECG 84849 CARDIOLOG DINO, ROUTINE 8 Y EMILIE S ECG ASSOCIATE W/LEAST S OF 12 LDS [place] W/I&R COMPREHEN 86011 OFFICE OFFICE SIVE 8 [facility] METABOLIC DIAGNOSTI DIAGNOSTI PANEL C C SERVICES SERVICES COMPREHEN 95896 [facility] SIVE 8 N N [facility] BLOOD 12702 [facility] COUNT 8 N N COMPLETE [facility] AUTO&AUTO HOSPITAL [place] [address] [facility] TROPONIN 8 N N [facility] INITIAL 45352 [facility] OBSERVATI 8 N N ON [facility] CARE/[facility] 30 MINUTES AMB A0427 [facility] SERVICE 8 MARIA G [facility] CO EMS EMERGENCY TRANSPORT LEVEL 1 RADIOLOGI 08841 [facility] C 8 N N EXAMINATI [facility] FRONT[facility] ECG 71171 [facility] ROUTINE 8 N N ECG [facility] W/[facility] 12 LDS TRCG ONLY W/O I&R CREATINE 29362 [facility] KINASE [address] [facility] ECG 23225 [facility] CELLAROSI ROUTINE 8 JEFFY - YORBA, ECG EMERGENCY BLANCO W/LEAST PHYS INC M 12 LDS I&R ONLY COLLECTIO 16327 [facility] N VENOUS 8 N N BLOOD [facility] URE CREATINE 71093 [facility] KINASE MB 8 N N FRACTION [facility] GROUND A0425 [facility] MILEAGE 8 MARIA G CUMMINS PER CO EMS CO EMS STATUTE MILE ECG 21960 [facility] AHMED, ROUTINE 8 JEFFY SMITH ECG EMERGENCY A W/LEAST PHYS INC 12 LDS I&R ONLY RADIOLOGI 72206 [facility] AHMED, C 8 JEFFY SMITH EXAMINATI EMERGENCY A ON CHEST PHYS INC [place] FRONTAL Encounters Encounter Start End Date Code Location Performer Type Date HOSPITAL RAMÓN Nino 7 7 [facility] OUTPATIEN INC T EMERGENCY 11449 [facility] 7 7 PHYSICIAN U DEPARTMEN S, PLLC T VISIT HIGH/URGE NT SEVERITY EMERGENCY 43670 RAMÓN 7 7 [facility] DEPARTMEN INC T VISIT LOW/MODER SEVERITY EMERGENCY 99749 RAMÓN 7 7 [facility] DEPARTMEN INC T VISIT LOW/MODER SEVERITY EMERGENCY 58748 [facility] DIAL 7 7 PHYSICIAN DEPARTMEN S, PLLC T VISIT MODERATE SEVERITY HOSPITAL RAMÓN - 7 7 [facility] OUTPATIEN INC T EMERGENCY 79535 [facility] 7 7 JEFFY DEPARTMEN EMERGENCY T VISIT PHYS HIGH/URGE NT SEVERITY HOSPITAL RAMÓN - 7 7 [facility] OUTPATIEN INC T EMERGENCY 40441 RAMÓN 7 7 [facility] DEPARTMEN INC T VISIT LOW/MODER SEVERITY EMERGENCY 69935 [facility] CALDERON 7 7 PHYSICIAN DEPARTMEN S, PLLC T VISIT MODERATE SEVERITY EMERGENCY 36229 WALLY STEPHENSON 7 7 NURSE DEPARTMEN PRACTITIO T VISIT NER GR HIGH/URGE NT SEVERITY [facility]OSPITAL [facility] - 7 7 [facility] OUT[facility] HOSPITALS OFFICE 12235 [facility] 7 7 [place] T NEW 30 PHYSICIAN MINUTES S ASSIST EMERGENCY 38573 [facility] 7 7 [place] DEPARTMEN PHYSICIAN T VISIT S MODERATE SEVERITY [facility]OSP[facility] 7 7 [facility]PITALS OFFICE 11598 JENNIFER [facility] 7 7 PHYSICIAN T VISIT PRACTICE 15 L MINUTES OFFICE 37693 [facility] 7 7 PHYSICIAN T NEW 30 PRACTICE MINUTES L OFFICE 27871 GRACIE [facility] 7 7 MEDICAL T NEW 45 SERV MINUTES FOUNDATIO N EMERGENCY 07568 [facility] 7 7 JEFFY DEPARTMEN EMERGENCY T VISIT PHYS MODERATE SEVERITY EMERGENCY 45118 [facility] ISA[facility] 6 6 MEDICAL DEPARTMEN SERV T VISIT FOUNDATIO MODERATE N SEVERITY EMERGENCY 14421 6 6 [facility] DEPARTMEN E T VISIT HOSPITALS HIGH/URGE NT SEVERITY [facility] - 6 6 [facility] OUTPATIEN E T HOSPITALS EMERGENCY 79010 6 6 [facility] DEPARTMEN E T VISIT HOSPITALS HIGH/URGE NT SEVERITY [facility] - 6 6 [facility] OUTPATIEN E T HOSPITALS EMERGENCY 00053 [facility] 6 6 [place] DEPARTMEN PHYSICIAN T VISIT S ASSIST LOW/MODER SEVERITY HOSPITAL [facility] 6 6 N OUTPATIEN COMMUNTIY T HOSPITA EMERGENCY 95982 [facility] 6 6 N DEPARTMEN COMMUNTIY T VISIT HOSPITA HIGH/URGE NT SEVERITY EMERGENCY 87946 SD KANDI 6 6 MEDICAL DEPARTMEN SERV T VISIT FOUNDATIO LOW/MODER N SEVERITY [facility] - 6 6 [facility] OUTPATIEN E T HOSPITALS EMERGENCY 47321 6 6 [facility] DEPARTMEN E T VISIT HOSPITALS LOW/MODER SEVERITY OFFICE 39342 HERNÁNLUAN TORIBIO [place] OUTPATI 6 6 PHYSICIAN T NEW 30 PRACTICE MINUTES L EMERGENCY 16897 [place] SURAJ EDMONDSONI 6 6 MEDICAL DEPARTMEN SERV T VISIT FOUNDATIO MODERATE N SEVERITY [facility]OSP[facility] - 6 6 [facility] OUTPATIEN E T HOSPITALS EMERGENCY 61248 6 6 [facility] DEPARTMEN E T VISIT HOSPITALS LOW/MODER SEVERITY EMERGENCY 89784 RAMÓN 6 6 [facility] DEPARTMEN INC T VISIT LIMITED/M INOR PROB HOSPITAL RAMÓN - 6 6 [facility] OUTPATIEN INC T EMERGENCY 15327 [facility] CALDER[facility] 6 6 PHYSICIAN DEPARTMEN S, PLLC T VISIT MODERATE SEVERITY EMERGENCY 47669 [facility] 6 6 JEFFY OSIEL DEPARTMEN EMERGENCY T VISIT PHYS MODERATE SEVERITY EMERGENCY 20018 RAMÓN 6 6 [facility] VISIT LIMITED/M INOR PROB EMERGENCY 76757 [facility] HOLL[facility] 6 6 PHYSICIAN Priya GONCALVES [facility] T VISIT MODERATE SEVERITY HOSPITAL RAMÓN - 6 6 [facility] OUTPATIEN INC T EMERGENCY 70612 [facility] 6 6 JEFFY ELO [facility] EMERGENCY T VISIT PHYS HIGH/URGE NT SEVERITY EMERGENCY 41091 RAMÓN 6 6 [facility] H[facility] INC T VISIT LIMITED/M INOR PROB EMERGENCY 81132 [facility] VALENTINE 6 6 PHYSICIAN KENYATTA [facility] T VISIT MODERATE SEVERITY HOSPITAL RAMÓN - 6 6 [facility] OUTPATIEN INC T EMERGENCY 10036 [facility] 6 6 JEFFY GONCALVES [facility] EMERGENCY T VISIT PHYS MODERATE SEVERITY HOSPITAL RAMÓN - 6 6 [facility] OUTPATIEN INC T OFFICE 45839 [facility] 6 6 SHEBA KIEL T VISIT ADULT & 25 PED MINUTES HOSPITAL RAMÓN - 6 6 [facility] OUTPATIEN INC T HOSPITAL RAMÓN - 6 6 [facility] OUTPATIEN INC T EMERGENCY 56220 [facility] MATTHEW 6 6 PHYSICIAN CONCHIS [facility] T VISIT HIGH/URGE NT SEVERITY HOSPITAL RAMÓN - 6 6 [facility] OUTPATIEN INC T OFFICE 00068 [facility] 6 6 MISAELY KIEL T VISIT ADULT & 25 PED MINUTES OFFICE 91963 [facility] 6 6 MISAELY KIEL ION ADULT & NEW/ESTAB PED PATIENT 60 MIN EMERGENCY 36241 [facility] 6 6 JEFFY PAT DEPARTMEN EMERGENCY T VISIT PHYS MODERATE SEVERITY EMERGENCY 78523 [facility] ARNOLD 6 6 JEFFY OSIEL DEPARTMEN EMERGENCY T VISIT PHYS MODERATE SEVERITY EMERGENCY 40560 [facility] ESPINOZA BAB 6 6 JEFFY DEPARTMEN EMERGENCY T VISIT PHYS MODERATE SEVERITY HOSPITAL RAMÓN - 6 6 [facility] OUTPATIEN INC T EMERGENCY 03254 RAMÓN 6 6 [facility] DEPARTMEN INC T VISIT LOW/MODER SEVERITY EMERGENCY 96868 [facility] VALENTINE 6 6 PHYSICIAN [facility] VISIT MODERATE SEVERITY HOSPITAL RAMÓN - 6 6 [facility] OUTPATIEN INC T EMERGENCY 57140 [facility] MAJOR 6 6 PHYSICIAN DEPARTMEN S, PLLC T VISIT MODERATE SEVERITY EMERGENCY 45661 RAMÓN 6 6 [facility] DEPARTMEN INC T VISIT LOW/MODER SEVERITY HOSPITAL RAMÓN - 6 6 [facility] OUTPATIEN INC T OFFICE 43319 EULA HANSON OUTPATIEN 6 6 MD LUCI, T NEW 45 PSC MINUTES OFFICE 67717 RAMÓN OUTPATIEN 6 6 [facility] T VISIT INC 10 MINUTES HOSPITAL RAMÓN - 6 6 [facility] OUTPATIEN INC T EMERGENCY 17220 RAMÓN 6 6 [facility] DEPARTMEN INC T VISIT LOW/MODER SEVERITY EMERGENCY 64077 [facility] MATTHEW 6 6 PHYSICIAN CONCHIS DEPARTMEN S, PLLC T VISIT MODERATE SEVERITY HOSPITAL RAMÓN - 5 5 [facility] OUTPATIEN INC T EMERGENCY 85051 RAMÓN 5 5 [facility] DEPARTMEN INC T VISIT LOW/MODER SEVERITY EMERGENCY 87143 [facility] MATTHEW 5 5 PHYSICIAN DEPARTMEN S, PLLC T VISIT MODERATE SEVERITY EMERGENCY 50318 [facility] 5 5 JEFFY LIZA [facility] EMERGENCY T VISIT PHYS HIGH/URGE NT SEVERITY EMERGENCY 59949 GRACIE ISAAC 5 5 MEDICAL ALEX [facility] SERV T VISIT FOUNDATIO MODERATE N SEVERITY HOSPITAL UNIV[facility] - 5 5 [facility] T EMERGENCY 45047 [facility] MATTHEW DEPT 5 5 PHYSICIAN VISIT S, PLLC HIGH SEVERITY& THREAT [facility] RAMÓN - 5 5 [facility] OUTPATIEN INC T EMERGENCY 66007 [facility] 5 5 JEFFY ELO [facility] EMERGENCY T VISIT PHYS MODERATE SEVERITY HOSPITAL [facility] - 5 5 N OUTPATIEN COMMUNTIY T HOSPITA EMERGENCY 15879 [facility] CELLARO 5 5 JEFFY - YORBA [facility] EMERGENCY PAT T VISIT PHYS MODERATE SEVERITY HOSPITAL RAMÓN - 5 5 [facility] OUTPATIEN [facility] RAMÓN - 5 5 [facility] T EMERGENCY 42524 [facility] 5 5 JEFFY ELO [facility] EMERGENCY T VISIT PHYS MODERATE SEVERITY EMERGENCY 77787 RAMÓN MATTHEW 5 5 [facility] T VISIT P LOW/MODER SEVERITY EMERGENCY 41964 [facility] 4 4 JEFFY [facility] EMERGENCY T VISIT PHYS MODERATE SEVERITY OFFICE 56674 [facility] 4 4 KENYATTA YOU T VISIT 25 MINUTES EMERGENCY 85700 [facility] 4 4 JEFFY PAT [facility] EMERGENCY T VISIT PHYS MODERATE SEVERITY EMERGENCY 80076 RAMÓN 4 4 [facility] HOS[facility] INC T VISIT LOW/MODER SEVERITY EMERGENCY 50971 DON MATTHEW 4 4 [facility] T VISIT MODERATE SEVERITY HOSPITAL RAMÓN - 4 4 [facility] OUTPATIEN INC T EMERGENCY 32139 KANDI MILES 4 4 DEPARTMEN T VISIT MODERATE SEVERITY EMERGENCY 72747 KANDI MILES 4 4 DEPARTMEN T VISIT MODERATE SEVERITY EMERGENCY 95903 CELLAROSI CELLAROSI 4 4 - YORBA - YORBA DEPARTMEN PAT PAT T VISIT HIGH/URGE NT SEVERITY EMERGENCY 77049 ALFARIS ALFARIS 4 4 [facility] DEPARTMEN T VISIT HIGH/URGE NT SEVERITY Emergency CORINNA Matthew MD (ER) 4 20:03 4 20:30 [facility] EMERGENCY 55253 DON MATTHEW 4 4 [facility] DEPARTMEN T VISIT MODERATE SEVERITY HOSPITAL RAMÓN - 3 3 [facility] EMERGENCY 09138 CHUY II CHUY II 3 3 THO THO DEPARTMEN T VISIT MODERATE SEVERITY Emergency CORINNA Doran MD (ER) 3 16:00 3 16:[address] [facility] EMERGENCY 03072 SOKAN BAB SOKAN BAB 3 3 DEPARTMEN T VISIT MODERATE SEVERITY Emergency CORINNA DENISE (ER) 3 02:20 3 02:55 [facility] EMERGENCY 91231 ALFARIS ALFARIS 3 3 [facility] DEPARTMEN T VISIT MODERATE SEVERITY EMERGENCY 33934 RECHTIN RECHTIN 3 3 [facility] DEPARTMEN T VISIT MODERATE SEVERITY Emergency CORINNA Sommers MD (ER) 3 17:05 3 17:10 [facility] EMERGENCY 73171 KANDI MILES 3 3 DEPARTMEN T VISIT MODERATE SEVERITY Emergency CORINNA Doran MD (ER) 3 15:40 3 16:[address] [facility] EMERGENCY 44010 SOKAN BAB SOKAN BAB 3 3 DEPARTMEN T VISIT MODERATE SEVERITY Emergency CORINNA Sommers MD (ER) 3 01:00 3 01:38 [facility] EMERGENCY 11707 YARIEL MILES 3 3 EMERGENCY DEPARTMEN SERVICES T VISIT HIGH/URGE NT SEVERITY EMERGENCY 09993 STACK HEIDI STACK HEIDI 3 3 DEPARTMEN T VISIT HIGH/URGE NT SEVERITY EMERGENCY 71912 YARIEL WHITAKER 3 3 EMERGENCY DEPARTMEN SERVICES T VISIT MODERATE SEVERITY EMERGENCY 48377 YARIEL BARROSO DEPT 3 3 EMERGENCY JAM VISIT SERVICES HIGH SEVERITY& THREAT FUNCJ EMERGENCY 05486 CAREY PATINO 3 3 SET SET DEPARTMEN T VISIT HIGH/URGE NT SEVERITY EMERGENCY 40369 CHUY II CHUY II 3 3 THO THO DEPARTMEN T VISIT MODERATE SEVERITY HOSPITAL RAMÓN - 3 3 [facility] OUTPATIEN INC T EMERGENCY 42719 DON MATTHEW 3 3 [facility] DEPARTMEN T VISIT HIGH/URGE NT SEVERITY EMERGENCY 10003 RAMÓN 3 3 [facility] HOS[facility] DEPARTMEN INC T VISIT LIMITED/M INOR PROB EMERGENCY 80826 YARIEL COTE DEPT 3 3 EMERGENCY III KENYON VISIT SERVICES HIGH SEVERITY& THREAT FUNCJ EMERGENCY 19294 ABNER MAT ABNER MAT 2 2 DEPARTMEN T VISIT MODERATE SEVERITY EMERGENCY 37084 YARIEL GUSTAFSON 2 2 EMERGENCY ADT JONATHAN DEPARTMEN SERVICES T VISIT MODERATE SEVERITY OFFICE 65293 KATT YOU CONSULTAT 2 2 ION NEW/ESTAB PATIENT 60 MIN EMERGENCY 04093 FOX LISA FOX LISA 2 2 DEPARTMEN T VISIT MODERATE SEVERITY OFFICE 27289 MIGDALIA NEGRON OUTPATIEN 2 2 CLEMENTINE CLEMENTINE T VISIT 15 MINUTES EMERGENCY 38782 PUND CHR PUND CHR 2 2 DEPARTMEN T VISIT MODERATE SEVERITY EMERGENCY 64941 CHUY II CHUY II 2 2 THO THO DEPARTMEN T VISIT MODERATE SEVERITY EMERGENCY 61005 OSWALDO CHACON 2 2 JULIO JULIO DEPARTMEN T VISIT MODERATE SEVERITY EMERGENCY 77210 RAMÓN 2 2 [facility] DEPARTMEN INC T VISIT LOW/MODER SEVERITY HOSPITAL RAMÓN - 2 2 [facility] OUTPATIEN INC T EMERGENCY 90610 DON DON 2 2 CONCHIS CONCHIS DEPARTMEN T VISIT MODERATE SEVERITY EMERGENCY 64780 CHUY II CHUY II 2 2 THO THO DEPARTMEN T VISIT HIGH/URGE NT SEVERITY OFFICE 39330 OZ [place] JR OUTPATIEN 2 2 KENYON KENYON T NEW 30 MINUTES EMERGENCY 22970 [facility] DEPT 2 2 III KENYON III KENYON VISIT HIGH SEVERITY& THREAT FUNCJ EMERGENCY 71403 RAMÓN 2 2 MEM HOS[facility] DEPARTMEN INC T VISIT MODERATE SEVERITY OFFICE 19277 MIGDALIA NEGRON OUTPATIEN 2 2 CLEMENTINE CLEMENTINE T VISIT 15 MINUTES HOSPITAL RAMÓN - 2 2 [facility] OUTPATIEN INC T EMERGENCY 43697 DEJUAN ZAIDI 2 2 GAR GAR DEPARTMEN T VISIT MODERATE SEVERITY OFFICE 26952 NAVARRO PAD NAVARRO PAD OUTPATIEN 2 2 T VISIT 15 MINUTES EMERGENCY 59764 CHUY T CHUY T 2 2 DEPARTMEN T VISIT MODERATE SEVERITY EMERGENCY 41017 RECHTIN RECHTIN 2 2 [employer] DEPARTMEN T VISIT HIGH/URGE NT SEVERITY OFFICE 20332 LI LI OUTPATIEN 2 2 KIEL KIEL T VISIT 15 MINUTES EMERGENCY 27776 CELLAROSI CELLAROSI 2 2 - YORBA - YORBA DEPARTMEN PAT PAT T VISIT HIGH/URGE NT SEVERITY OFFICE 82685 NAVARRO PAD NAVARRO PAD OUTPATIEN 2 2 T VISIT 15 MINUTES EMERGENCY 80089 YARIEL STEPHENSON MARIO 2 2 EMERGENCY DEPARTMEN SERVICES T VISIT HIGH/URGE NT SEVERITY OFFICE 60818 MARY ODESSA MARY ODESSA OUTPATIEN 2 2 T VISIT 15 MINUTES EMERGENCY 25914 CHUY T CHUY T 2 2 DEPARTMEN T VISIT MODERATE SEVERITY OFFICE 52538 GUILLERMO LI OUTPATIEN 2 2 KIEL KIEL T VISIT 15 MINUTES HOSPITAL [facility] - 2 2 [facility] T EMERGENCY 40951 [facility]NPHELPS [facility]ALTHON 2 2 [facility] T VISIT MODERATE SEVERITY EMERGENCY 19373 DOWNS PAT DOWNS PAT 2 2 DEPARTMEN T VISIT HIGH/URGE NT SEVERITY EMERGENCY 59996 GRACIE KIRKLAND 2 2 MEDICAL TEREZA DEPARTMEN SERV T VISIT FOUNDATIO MODERATE SEVERITY EMERGENCY 33998 YARIEL ARANDA 2 2 EMERGENCY PAT DEPARTMEN SERVICES T VISIT MODERATE SEVERITY OFFICE 37953 GUILLERMO LI CONSULTAT 2 2 KIEL KIEL ION NEW/ESTAB PATIENT 40 MIN OFFICE 76536 MOIRA MOIRA OUTPATIEN 2 2 MITZI MITZI T NEW 20 MINUTES OFFICE 64018 POWELL POWELL OUTPATIEN 2 2 OSBALDO OSBALDO T VISIT 15 MINUTES EMERGENCY 96439 YARIEL MATTHEW 2 2 EMERGENCY CONCHIS DEPARTMEN SERVICES T VISIT HIGH/URGE NT SEVERITY HOSPITAL RAMÓN - 2 2 [facility] OUTPATIEN INC T EMERGENCY 41447 RAMÓN 2 2 [facility] DEPARTMEN INC T VISIT LOW/MODER SEVERITY EMERGENCY 08738 CHUY T CHUY T 2 2 DEPARTMEN T VISIT MODERATE SEVERITY [facility]OSPITAL [place] - 2 2 [facility] T OFFICE 52984 BURGESS POWELL OUTPATIEN 2 2 OSBALDO OSBALDO T VISIT 15 MINUTES EMERGENCY 33885 GRACIE JESSIE 2 2 MEDICAL NEIGHBORHOOD CONSERVATION OFFICER DEPARTMEN SERV T VISIT FOUNDATIO HIGH/URGE NT SEVERITY OFFICE 08897 AICHA MITZI AICHA [facility] T VISIT 15 MINUTES OFFICE 88855 MARY ODESSA [facility]ARY [facility]DES[facility] 2 2 T NEW 20 MINUTES OFFICE 91618 MIGDALIA NEGRON [facility] 2 2 CLEMENTINE CLEMENTINE T VISIT 15 MINUTES EMERGENCY 02671 OSWALDO CHACON 2 2 JULIO JULIO DEPARTMEN T VISIT MODERATE SEVERITY EMERGENCY 38149 YARIEL MATTHEW 2 2 EMERGENCY CONCHIS DEPARTMEN SERVICES T VISIT HIGH/URGE NT SEVERITY HOSPITAL RAMÓN - 2 2 [facility] T EMERGENCY 65604 RAMÓN 2 2 [facility] INC T VISIT LOW/MODER SEVERITY EMERGENCY 00577 YARIEL TIDWELL 2 2 EMERGENCY CAR DEPARTMEN SERVICES T VISIT LIMITED/M INOR PROB EMERGENCY 24831 VERONICA MARTIN 2 2 [facility] DEPARTMEN T VISIT HIGH/URGE NT SEVERITY OFFICE 18187 [facility] PAD [facility] OUTPATIEN 2 2 T VISIT 15 MINUTES HOSPITAL CARLY - 2 2 N OUTPATIEN COMMUNTIY T HOSPITA EMERGENCY 10411 YARIEL MATTHEW 2 2 EMERGENCY CONCHIS DEPARTMEN SERVICES T VISIT HIGH/URGE NT SEVERITY HOSPITAL RAMÓN - 2 2 [facility] T EMERGENCY 09604 RAMÓN 2 2 [facility] DEPARTMEN INC T VISIT LOW/MODER SEVERITY EMERGENCY 15519 DEJUAN ZAIDI 2 2 GAR GAR DEPARTMEN T VISIT MODERATE SEVERITY EMERGENCY 89345 YARIEL TIDWELL 2 2 EMERGENCY CAR DEPARTMEN SERVICES T VISIT MODERATE SEVERITY OFFICE 75059 [facility]AD[facility] SHARI SHARI T VISIT 15 MINUTES EMERGENCY 86252 OSWALDO CHACON 1 1 JULIO JULIO DEPARTMEN T VISIT MODERATE SEVERITY HOSPITAL UNIVERSIT - 1 1 [facility] T EMERGENCY 95182 UNIVERSIT 1 1 [facility] T VISIT MODERATE SEVERITY HOSPITAL BOURBON - 1 1 [facility] T EMERGENCY 79856 MOLINA MITZI MOLINA MITZI 1 1 DEPARTMEN T VISIT MODERATE SEVERITY OFFICE 77850 [facility] 1 T NEW 20 MINUTES EMERGENCY 04367 OSWALDO CHACON 1 1 JULIO JULIO DEPARTMEN T VISIT HIGH/URGE NT SEVERITY EMERGENCY 29859 DON MATTHEW 1 1 CONCHIS CONCHIS DEPARTMEN T VISIT HIGH/URGE NT SEVERITY EMERGENCY 68891 RAMÓN 1 1 [facility] DE[facility] T VISIT LOW/MODER SEVERITY HOSPITAL RAMÓN - 1 1 [facility] T OFFICE 00876 ESCALANTE JULIO ESCALANTE [facility]ULIO [facility] T VISIT 15 MINUTES EMERGENCY 00182 [facility] TE[facility]O 1 1 PRIMARY FRITZ DEPARTMEN CARE T VISIT PHYSICANS MODERATE M SEVERITY EMERGENCY 08336 YARIEL DOWNING 1 1 [facility] T VISIT MODERATE SEVERITY HOSPITAL UNIVERSIT - 1 1 [facility] T EMERGENCY 64821 UNIVERSIT 1 1 Y [facility] H[facility]PITAL T VISIT MODERATE SEVERITY OFFICE 89791 ESCALANTE JULIO ESCALANTE JULIO [facility] T VISIT 15 MINUTES HOSPITAL UN[facility]ERS[facility] - 1 1 [facility] T EMERGENCY 01552 UNIVERSIT 1 1 Y [facility] H[facility] T VISIT MODERATE SEVERITY EMERGENCY 80679 [facility] MERCHANT 1 1 PRIMARY KET [facility] CARE T VISIT PHYSICANS HIGH/URGE M NT SEVERITY OFFICE 84284 VENGUSWAM [facility]WAM [facility] 1 Y [facility] Y [facility] T VISIT 15 MINUTES OFFICE 57662 ESCALANTE JULIO ESCALANTE JULIO [facility] 1 1 T NEW 30 MINUTES EMERGENCY 43708 GRACIE LOPEZ 1 1 MEDICAL DEPARTMEN SERV T VISIT FOUNDATIO MODERATE SEVERITY HOSPITAL UNIVERSIT - 1 1 [facility] T EMERGENCY 52872 GRACIE MONIQUE 1 1 MEDICAL SON DEPARTMEN SERV T VISIT FOUNDATIO MODERATE SEVERITY EMERGENCY 70953 UNIVERSIT 1 1 Y [facility] HOSPITAL T VISIT LOW/MODER SEVERITY EMERGENCY 55520 YARIEL FERNANDEZ 1 1 EMERGENCY [facility] SERVICES T VISIT HIGH/URGE NT SEVERITY HOSPITAL UNIVERSIT - 1 1 [facility] T EMERGENCY 21256 UNIVERSIT 1 1 Y [facility] HOSPITAL T VISIT LOW/MODER SEVERITY EMERGENCY 99089 GRACIE WHARTON JR 1 1 MEDICAL [place] DEPARTMEN SERV T VISIT FOUNDATIO MODERATE SEVERITY EMERGENCY 83673 RAMÓN 1 1 [facility] DEPARTMEN INC T VISIT LOW/MODER SEVERITY HOSPITAL RAMÓN - 1 1 [facility] T EMERGENCY 84436 YARIEL GONZALEZ 1 1 EMERGENCY DEPARTMEN SERVICES T VISIT HIGH/URGE NT SEVERITY EMERGENCY 43570 [facility] 1 1 JEFFY DEPARTMEN EMERGENCY T VISIT PHYS MODERATE SEVERITY EMERGENCY 06833 YARIEL SHEETS 1 1 EMERGENCY CONCHIS DEPARTMEN SERVICES T VISIT MODERATE SEVERITY EMERGENCY 59789 YARIEL MATTHEW 1 1 EMERGENCY CONCHIS DEPARTMEN SERVICES T VISIT HIGH/URGE NT SEVERITY HOSPITAL [facility] - 1 1 [facility] OUTPATIEN INC T EMERGENCY 00624 RAMÓN 1 1 [facility] DEPARTMEN INC T VISIT LIMITED/M INOR PROB EMERGENCY 43676 [facility] 1 1 N DEPARTMEN COMMUNITY T VISIT HOSPITA LOW/MODER SEVERITY EMERGENCY 45268 YARIEL DOWNING 1 1 EMERGENCY - YORBA DEPARTMEN SERVICES PAT T VISIT HIGH/URGE NT SEVERITY HOSPITAL [facility] - 1 1 N OUTPATIEN COMMUNITY T [facility] 87789 GRACIE MARC 1 1 MEDICAL MITZI DEPARTMEN SERV T VISIT FOUNDATIO MODERATE SEVERITY EMERGENCY 85415 JOESPH RANDY JAM 1 1 JEFFY DEPARTMEN EMERGENCY T VISIT PHYS MODERATE SEVERITY [facility] [place] [address] 1 HOSPITAL OUTPATIEN T EMERGENCY [address] DEPARTMEN T VISIT LOW/MODER SEVERITY EMERGENCY 74255 YARIEL GALO 1 1 EMERGENCY CHAU DEPARTMEN SERVICES T VISIT MODERATE SEVERITY EMERGENCY 94841 YARIEL ZAIDI DEPT 1 1 EMERGENCY GAR VISIT SERVICES HIGH SEVERITY& THREAT FUNCJ EMERGENCY 77862 [facility] 1 1 N DEPARTMEN COMMUNITY [facility] SE[facility] - 1 1 N [facility] 04317 TIARA MENJIVAR OUTPATIEN 1 1 Y CATARINA Y CATARINA T VISIT 25 MINUTES OFFICE 90120 CARLY SPICER OUTPATIEN 1 1 N URGENT ABD T VISIT CARE 15 MINUTES OFFICE 81640 VENGUSWAM TIARA OUTPATIEN 1 1 Y CATARINA Y CATARINA T NEW 30 MINUTES EMERGENCY 51638 YARIEL GALO 1 1 EMERGENCY CHAU DEPARTMEN SERVICES T VISIT HIGH/URGE NT SEVERITY OFFICE 02959 [facility] DANNIELLE OUTPATIEN 1 1 N URGENT ABD T VISIT CARE 15 MINUTES [facility]PITAL [facility] 1 1 [facility] 98678 ESSIEKai SPICER OUTPATIEN 1 1 N URGENT ABD T VISIT CARE 15 MINUTES OFFICE 40881 ESSIEBLUE MOUND DANNIELLE OUTPATIEN 1 1 N URGENT ABD T VISIT CARE 15 MINUTES EMERGENCY 88326 YARIEL GONZALEZ 1 1 EMERGENCY DEPARTMEN SERVICES T VISIT HIGH/URGE NT SEVERITY HOSPITAL RAMÓN - 1 1 [facility] OUTPATIEN INC T EMERGENCY 29581 RAMÓN 1 1 [facility] DEPARTMEN INC T VISIT LOW/MODER SEVERITY EMERGENCY 64987 YARIEL GALO 1 1 EMERGENCY CHAU DEPARTMEN SERVICES T VISIT MODERATE SEVERITY OFFICE 82203 GRACIE GARRETT Timur OUTPATIEN 1 1 MEDICAL T VISIT SERV 10 FOUNDATIO MINUTES OFFICE 25652 CARLY SPICER OUTPATIEN 1 1 N URGENT ABD T VISIT CARE 15 MINUTES OFFICE 19854 [facility] KENRICKE OUTPATIEN 1 1 N URGENT ABD T VISIT CARE 15 MINUTES OFFICE 71823 [facility] KENRICKE OUTPATIEN 0 0 N URGENT ABD T VISIT CARE 15 MINUTES OFFICE 92207 [facility] DANNIELLE OUTPATIEN 0 0 N URGENT ABD T VISIT CARE 15 MINUTES OFFICE 54517 [facility] CONSULTAT 0 0 ANNITA GALINDO CARDIOLOG NEW/ESTAB Y CLINIC PATIENT 30 MIN EMERGENCY 76724 YARIEL GALO 0 0 EMERGENCY [facility] SERVICES T VISIT MODERATE SEVERITY [facility] - 0 0 N [facility] 19781 [facility] DANNIELLE OUTPATIEN 0 0 N URGENT ABD T VISIT CARE 15 MINUTES HOSPITAL [facility] - 0 0 N [facility] 96129 [facility] DANNIELLE OUTPATIEN 0 0 N URGENT ABD T VISIT CARE 15 MINUTES EMERGENCY 21884 RAMÓN 0 0 [facility] DEPARTMEN INC T VISIT LOW/MODER SEVERITY HOSPITAL RAMÓN - 0 0 [facility] OUTPATIEN INC T EMERGENCY 20090 YARIEL COTE 0 0 EMERGENCY III [facility] SERVICES T VISIT HIGH/URGE NT SEVERITY OFFICE 42605 CENTRAL GARCÍA TRA OUTPATIEN 0 0 [place] T VISIT ORTHOPAED 15 [facility] MINUTES OFFICE 43454 SCALFLALITO CHOUDHARYE OUTPATIEN 0 0 N URGENT ABD T NEW 30 CARE MINUTES OFFICE 56843 GARCÍA TRA GARCÍA TRA OUTPATIEN 0 0 T VISIT 10 MINUTES OFFICE 31437 [facility] OUTPATIEN 0 0 [place] T VISIT ORTHOPAED 15 [facility] MINUTES HOSPITAL [facility] - 0 0 N [facility] 33572 YARIEL GALO 0 0 EMERGENCY CHAU DEPARTMEN SERVICES T VISIT MODERATE SEVERITY EMERGENCY 80852 YARIEL VERA T 0 0 EMERGENCY DEPARTMEN SERVICES T VISIT MODERATE SEVERITY EMERGENCY 88336 YARIEL ROBERTO DEPT 0 0 EMERGENCY DON VISIT SERVICES HIGH SEVERITY& THREAT FUNCJ EMERGENCY 42781 YARIEL MATTHEW, 0 0 EMERGENCY DANIELA S DEPARTMEN SERVICES T VISIT HIGH/URGE ASSOCIATE NT S SEVERITY HOSPITAL RAM[facility]N - 0 0 [facility] OUTPATIEN INC T EMERGENCY 12307 RAMÓN 0 0 [facility] DEPARTMEN INC T VISIT LOW/MODER SEVERITY EMERGENCY 39324 [facility]IS[facility] LOW[facility]MODER SEVERITY [facility] - [facility] T EMERGENCY 84781 GRACIE MOHAN 0 0 MEDICAL GAIL DEPARTMEN SERV T VISIT FOUNDATIO MODERATE SEVERITY EMERGENCY 54632 YARIEL MATTHEW, DEPT 0 0 EMERGENCY DANIELA S VISIT SERVICES HIGH SEVERITY& ASSOCIATE THREAT S FUNJ EMERGENCY 71751 RMAÓN 0 0 [facility] DEPARTMEN INC T VISIT LOW/MODER SEVERITY HOSPITAL RAMÓN - 0 0 [facility] OUTPATIEN INC T HOSPITAL RAMÓN - 0 0 [facility] OUTPATIEN INC T EMERGENCY 73345 RAMÓN 0 0 [facility] DEPARTMEN INC T VISIT LOW/MODER SEVERITY EMERGENCY 02604 YARIEL GIL 0 0 EMERGENCY GRE DEPARTMEN SERVICES T VISIT MODERATE SEVERITY HOSPITAL RAMÓN - 0 0 [facility] OUTPATIEN INC T EMERGENCY 95399 RAMÓN 0 0 [facility] DEPARTMEN INC T VISIT LIMITED/M INOR PROB EMERGENCY 67631 YARIEL MATTHEW, 0 0 EMERGENCY DANIELA S DEPARTMEN SERVICES T VISIT HIGH/URGE ASSOCIATE NT S SEVERITY EMERGENCY 06742 [place] 0 0 [facility] T VISIT MODERATE SEVERITY [facility]OSP[facility] [place] - 0 0 [facility] T EMERGENCY 98935 YARIEL WATT 0 0 EMERGENCY DEPARTMEN SERVICES T VISIT HIGH/URGE NT SEVERITY EMERGENCY 53083 YARIEL CHARLES, 0 0 EMERGENCY ANGELY DEPARTMEN SERVICES T VISIT MODERATE ASSOCIATE SEVERITY S EMERGENCY 58256 YARIEL BARROSO, 0 0 EMERGENCY VALERIE DEPARTMEN SERVICES T VISIT HIGH/URGE ASSOCIATE NT S SEVERITY EMERGENCY 71047 [place] 0 0 [facility] T VISIT MODERATE SEVERITY [facility]OSP[facility] [place] - 0 0 [facility] T EMERGENCY 22568 [facility] SU[facility], 0 0 JEFFY Mills DEPARTMEN EMERGENCY T VISIT PHYS INC MODERATE SEVERITY OFFICE 26586 MIGDALIA NEGRON, OUTPATIEN 0 0 BOY Quinn T NEW 30 MINUTES EMERGENCY 70228 [facility], 0 0 JEFFY Mills DEPARTMEN EMERGENCY T VISIT PHYS [facility] MODERATE SEVERITY EMERGENCY 35072 ST ANN[facility] 0 0 HOSPITAL DEPARTMEN T VISIT MODERATE SEVERITY [facility] - 0 0 HOSPITAL OUTPATIEN T EMERGENCY 84325 [facility], 0 0 JEFFY Quinn DEPARTMEN EMERGENCY T VISIT SERV PC HIGH/URGE NT SEVERITY HOSPITAL [place] - 0 0 [facility] T EMERGENCY 72327 [place] 0 0 [facility] T VISIT MODERATE SEVERITY EMERGENCY 49865 [facility], 0 0 JEFFY DO DEANNA, [facility] NAREN O T VISIT PHYS INC MODERATE SEVERITY EMERGENCY 76266 [facility] 0 0 JEFFY , [place] DEPARTMEN EMERGENCY M T VISIT PHYS INC MODERATE SEVERITY EMERGENCY 66316 [place] 0 0 [facility] T VISIT MODERATE SEVERITY [facility]OSPITAL [place] - 0 0 [facility] T HOSPITAL UN[facility]IT - 0 0 Y [facility] T EMERGENCY 43683 RAMÓN 0 0 [facility] DEPARTMEN INC T VISIT LIMITED/M INOR PROB EMERGENCY 29379 [place] ENEIDA, 0 0 MEDICAL YOSELIN C DEPARTMEN SERV T VISIT FOUNDATIO LOW/MODER SEVERITY EMERGENCY 99357 YARIEL BARROSO, 0 0 EMERGENCY VALERIE [facility] SERVICES T VISIT MODERATE ASSOCIATE SEVERITY S EMERGENCY 32849 [facility], T 0 0 JEFFY DEPARTMEN EMERGENCY T VISIT PHYS INC MODERATE SEVERITY EMERGENCY 07180 [facility] 0 0 JEFFY DEPARTMEN EMERGENCY T VISIT PHYS INC MODERATE SEVERITY EMERGENCY 58329 [facility] CELLARO 0 0 JEFFY - YAOA, [facility] EMERGENCY BLANCO T VISIT PHYS INC M MODERATE SEVERITY HOSPITAL UN[facility]ERSIT - 0 0 [facility] T EMERGENCY 65243 UN[facility] 0 0 [facility] T VISIT MODERATE SEVERITY EMERGENCY 08176 [facility] [place], 0 0 JEFFY MERVIN M DEPARTMEN EMERGENCY T VISIT PHYS INC MODERATE SEVERITY EMERGENCY 30112 [place] 0 0 [facility] T VISIT LOW/MODER SEVERITY [facility]OSPITAL [place] - 0 0 [facility] T EMERGENCY 34592 GRACIE ANISA 0 0 MEDICAL I, MORELIA DEPARTMEN SERV A T VISIT FOUNDATIO MODERATE SEVERITY EMERGENCY 96072 [place] 0 0 [facility] T VISIT LOW/MODER SEVERITY [facility]OSPITAL [place] - 0 0 [facility] T EMERGENCY 26293 [facility] 9 9 JEFFY [facility] EMERGENCY T VISIT PHYS INC MODERATE SEVERITY EMERGENCY 86569 [place] 9 9 [facility] T VISIT LOW/MODER SEVERITY [facility]OSPITAL [place] - 9 9 [facility] T EMERGENCY 65062 [facility] [place], 9 9 JEFFY NAREN [facility]nard [facility] T VISIT PHYS INC MODERATE SEVERITY EMERGENCY 64825 [facility], 9 9 JEFFY Mills [facility] EMERGENCY T VISIT PHYS INC MODERATE SEVERITY EMERGENCY 19268 [facility] [place], 9 9 JEFFY HIEU [facility] EMERGENCY T VISIT PHYS INC HIGH/URGE NT SEVERITY HOSPITAL [facility] - 9 9 [facility] EMERGENCY 19518 [facility] 9 9 [facility] VISIT LOW/MODER SEVERITY EMERGENCY 53363 [facility], T 9 9 [facility] EMERGENCY T VISIT PHYS INC MODERATE SEVERITY EMERGENCY 03922 [facility] SAMMED, 9 9 JEFFY SMITH [facility] EMERGENCY A T VISIT PHYS INC MODERATE SEVERITY HOSPITAL [place] - 9 9 [facility] T EMERGENCY 69740 [facility] 9 JEFFY SARAH [facility] EMERGENCY A T VISIT PHYS INC MODERATE SEVERITY EMERGENCY 21662 RIO 9 9 [facility] T VISIT LOW/MODER SEVERITY [facility]OSPITAL [place] - 9 9 [facility] T OFFICE 21439 RUBY BELTRAN CONSULTAT 9 9 , QUITA QUITA ION NEW/ESTAB PATIENT 40 MIN EMERGENCY 70193 [facility] JEFFY DEPARTMEN EMERGENCY SANJOYDEB T VISIT PHYS INC MODERATE SEVERITY EMERGENCY 15212 [facility] 9 9 HOSPITAL DEPARTMEN T VISIT LOW/MODER SEVERITY HOSPITAL [facility] - 9 9 HOSPITAL OUTPATIEN T EMERGENCY 19038 RAMÓN 9 9 [facility] DEPARTMEN INC T VISIT LOW/MODER SEVERITY [facility] [place] - 9 9 [facility] OUTPATIEN INC T EMERGENCY 22564 YARIEL MATTHEW, 9 9 EMERGENCY [facility] DEPARTMEN SERVICES T VISIT MODERATE ASSOCIATE SEVERITY S EMERGENCY 44835 [facility], 9 9 JEFFY IDA DEPARTMEN EMERGENCY T VISIT PHYS INC MODERATE SEVERITY EMERGENCY 05817 [facility], 9 9 JEFFY Mills DEPARTMEN EMERGENCY T VISIT PHYS INC MODERATE SEVERITY [facility] [place] - 9 9 [facility] OUTPATIEN INC T EMERGENCY 15226 RAMÓN 9 9 [facility] DEPARTMEN INC T VISIT LOW/MODER SEVERITY EMERGENCY 04827 YARIEL MATTHEW, 9 9 EMERGENCY DANIELA DEPARTMEN SERVICES T VISIT MODERATE ASSOCIATE SEVERITY S HOSPITAL [facility] - 9 9 HOSPITAL OUTPATIEN T EMERGENCY 66579 [facility], 9 9 JEFFY Kai Martinez DEPARTMEN EMERGENCY T VISIT PHYS INC MODERATE SEVERITY EMERGENCY 46704 [facility] 9 9 HOSPITAL DEPARTMEN T VISIT LOW/MODER SEVERITY HOSPITAL [facility] - 9 9 HOSPITAL OUTPATIEN T EMERGENCY 67485 [facility], 9 9 JEFFY DORIS Freeman DEPARTMEN EMERGENCY T VISIT PHYS INC MODERATE SEVERITY EMERGENCY 00956 [facility] 9 9 HOSPITAL DEPARTMEN T VISIT LOW/MODER SEVERITY EMERGENCY 10954 [facility], 9 9 JEFFY SMITH DEPARTMEN EMERGENCY A T VISIT PHYS INC MODERATE SEVERITY EMERGENCY 53091 YARIEL MATTHEW, 9 9 [facility] T VISIT MODERATE ASSOCIATE SEVERITY S EMERGENCY 18987 RAMÓN 9 9 [facility] DEPARTMEN INC T VISIT LOW/MODER SEVERITY HOSPITAL RAMÓN - 9 9 [facility] INC T HOSPITAL [place] - 9 9 [facility] T EMERGENCY 09530 [facility] 9 JEFFY DANIELA B DEPARTMEN EMERGENCY T VISIT PHYS INC MODERATE SEVERITY HOSPITAL RAMÓN - 9 9 [facility] T EMERGENC[facility] 68197 YARIEL MATTHEW, 9 9 EMERGENCY [facility] SERVICES T VISIT HIGH/URGE ASSOCIATE NT S SEVERITY EMERGENCY 08817 RAMÓN 9 9 [facility] DEPARTMEN INC T VISIT LOW/MODER SEVERITY EMERGENCY 77576 [facility], T 9 9 JEFFY DEPARTMEN EMERGENCY T VISIT PHYS INC MODERATE SEVERITY OFFICE 97593 RAMON NAVARRO OUTPATIEN 9 9 LYNDSAY G LYNDSAY G T VISIT 15 MINUTES EMERGENCY 18424 [facility] T 9 9 [facility] T VISIT PHYS INC MODERATE SEVERITY HOSPITAL BOJ[facility]VIRON - 9 9 [facility] T EMERGENCY 27736 [facility] 9 9 JEFFY DANIELA B DEPARTMEN EMERGENCY T VISIT PHYS INC MODERATE SEVERITY EMERGENCY 94579 BOJASVIRON 9 9 [facility] T VISIT LOW/MODER SEVERITY HOSPITAL RAMÓN - 9 9 [facility] OUTPATIEN INC T EMERGENCY 17031 YARIEL MATTHEW, 9 9 [facility] T VISIT MODERATE ASSOCIATE SEVERITY S EMERGENCY 49952 RAMÓN 9 9 [facility] DEPARTMEN INC T VISIT LOW/MODER SEVERITY EMERGENCY 87465 [facility], T 9 9 JEFFY [facility] EMERGENCY T VISIT PHYS INC MODERATE SEVERITY HOSPITAL RAMÓN - 9 9 [facility] OUTPATIEN INC T EMERGENCY 64891 YARIEL DORAN, 9 9 [facility] T VISIT LOW/MODER ASSOCIATE SEVERITY S EMERGENCY 88341 [facility], T 9 9 JEFFY [facility] EMERGENCY T VISIT PHYS INC MODERATE SEVERITY EMERGENCY 16851 YARIEL MUÑOZ, DEPT 9 9 EMERGENCY CHECO VISIT SERVICES HIGH SEVERITY& ASSOCIATE THREAT S FUN EMERGENCY 49505 RAMÓN 9 9 MEM [facility] DEPARTMEN INC T VISIT MODERATE SEVERITY HOSPITAL RAMÓN - 9 9 [facility] OUTPATIEN [facility] T HOSPITAL UNIVERSIT - 9 9 [facility] T EMERGENCY 23963 [facility] 9 9 JEFFY VALERIE Dominguez [facility] EMERGENCY T VISIT PHYS INC MODERATE SEVERITY EMERGENCY 87401 [facility] 9 9 [facility] T VISIT LOW/MODER SEVERITY EMERGENCY 80044 UNIVERSIT 9 9 [facility] T VISIT LIMITED/M INOR PROB OFFICE 60527 [facility] 9 9 , QUITA DEVLIN ION NEW/ESTAB PATIENT 60 MIN HOSPITAL [place] - 9 9 [facility] T EMERGENCY 56741 [place] 9 9 [facility] T VISIT LIMITED/M INOR PROB EMERGENCY 96027 [facility] 9 JEFFY MERVIN [facility] EMERGENCY T VISIT PHYS INC MODERATE SEVERITY EMERGENCY 65478 [facility] 9 9 [facility] T VISIT MODERATE SEVERITY HOSPITAL [place] - 9 9 [facility] T EMERGENCY 37617 [facility], 9 9 JEFFY Mckeon DEPARTMEN EMERGENCY T VISIT PHYS INC LOW/MODER SEVERITY HOSPITAL RAMÓN - 9 9 [facility] OUTPATIEN INC T EMERGENCY 05999 [place] 9 9 [facility] T VISIT MODERATE SEVERITY EMERGENCY 62164 RAMÓN 9 9 [facility] DEPARTMEN INC T VISIT LIMITED/M INOR PROB EMERGENCY 37582 YARIEL RICHARDSON, 9 9 EMERGENCY VALERIE P DEPARTMEN SERVICES T VISIT MODERATE ASSOCIATE SEVERITY [facility] RAMÓN - 9 9 [facility] OUTPATIEN INC T EMERGENCY 50780 [facility] ANNITA PARKER DEPARTMEN EMERGENCY T VISIT PHYS INC MODERATE SEVERITY EMERGENCY 31546 [facility] 9 9 [facility] T VISIT LIMITED/M INOR PROB HOSPITAL [facility] - 9 9 [facility] T EMERGENCY 54801 [facility], 9 9 JEFFY Mills DEPARTMEN EMERGENCY T VISIT PHYS INC MODERATE SEVERITY EMERGENCY 51511 UNIVERSIT 9 9 [facility] T VISIT LIMITED/M INOR PROB EMERGENCY 46009 GRACIE SOLORIO, 9 9 CORBIN Martinez DEPARTMEN SERV T VISIT FOUNDATIO MODERATE SEVERITY HOSPITAL UNIVERSIT - 9 9 [facility] T EMERGENCY 77099 [place] 9 9 [facility] T VISIT LOW/MODER SEVERITY [facility]OS[facility]ITAL [facility] 9 9 [facility] T EMERGENCY 94086 [facility], 9 9 JEFFY Mckeon DEPARTMEN EMERGENCY T VISIT PHYS INC MODERATE SEVERITY EMERGENCY 95052 [facility] YUM[facility]KO, 9 9 JEFFY Hdz DEPARTMEN EMERGENCY T VISIT PHYS INC MODERATE SEVERITY EMERGENCY 50259 JOESPH COLLADO 9 9 JEFFY KINGSLEY Freeman [facility] EMERGENCY T VISIT PHYS INC MODERATE SEVERITY HOSPITAL [place] - 9 9 [facility] UNIVERSIT - 9 9 Y [facility] T OFFICE 62122 RAMON ANVARRO, [facility] 9 9 LYNDSAY G LYNDSAY G T VISIT 15 MINUTES EMERGENCY 72496 GRACIE SOLORIO, 9 9 MEDICAL MERVIN E [facility] SERV T VISIT FOUNDATIO HIGH/URGE NT SEVERITY HOSPITAL UNIVERSIT - 9 9 Y [facility] T EMERGENCY 17775 [facility] 8 8 JEFFY [facility] EMERGENCY T VISIT PHYS INC MODERATE SEVERITY HOSPITAL [facility] - 8 8 N [facility] OFFICE 78556 RAMON NAVARRO, CONSULTAT 8 8 LYNDSAY G LYNDSAY G ION NEW/ESTAB PATIENT 60 MIN OFFICE 36525 CARDIOLOG DINO, CONSULTAT 8 8 Y EMILIE S ION ASSOCIATE NEW/ESTAB S OF PATIENT [place] 60 MIN HOSPITAL RAMÓN - 8 8 [facility] T EMERGENCY 42750 [place] 8 8 [facility] T VISIT LOW/MODER SEVERITY EMERGENCY 09003 [facility] CELLAROSI DEPT 8 8 JEFFY Trung CALERO, VISIT EMERGENCY BLANCO HIGH PHYS INC M SEVERITY& THREAT [facility] - 8 8 N [facility] 49744 [facility] 8 8 N [facility] T VISIT HOSPITAL HIGH/URGE NT SEVERITY EMERGENCY 02062 [facility] 8 8 N [facility] T VISIT HOSPITAL LOW/MODER SEVERITY EMERGENCY 60535 [facility], 8 8 JEFFY SARAH [facility] EMERGENCY A T VISIT PHYS INC MODERATE SEVERITY HOSPITAL [place] 17531 8 N [facility] T HOSPITAL OFFICE 44408 GRACIE GARRETT, Timur CONSULTAT 8 8 MEDICAL D ION SERV NEW/ESTAB FOUNDATIO PATIENT 40 MIN EMERGENCY [id number] [facility] DEPT 8 8 JEFFY SMITH VISIT EMERGENCY A HIGH PHYS INC SEVERITY& THREAT FUNJ [facility] UNIVERS - 8 Y [facility] T EMERGENCY [id number] [facility] 8 8 Y [facility] T VISIT LIMITED/M INOR PROB EMERGENCY [id number] GRACIE WELLS 8 8 MEDICAL , [facility] F[facility] MODERATE SEVERITY EMERGENCY [id number] GRACIE ANISA 8 8 MEDICAL I, MORELIA [facility] SERV A T VISIT FOUNDATIO MODERATE SEVERITY HOSPITAL UNIVERS - 8 8 Y [facility] T EMERGENCY [id number] [facility] 8 8 Y [facility] T VISIT HIGH/URGE NT SEVERITY EMERGENCY 32654 JOESPH HERMOSILLO DEPT 8 8 JEFFY KIDD VISIT EMERGENCY HIGH PHYS INC SEVERITY& THREAT FUNCJ
--- OUTSIDE RECORDS SUMMARY | 2017-02-21 09:55 | External Medical Summary Rpt | CCD ---
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 ADULT & PED COMPLEX 68578 CENTRAL CENTRAL UROFLOMET 6 [facility] RY ADULT & ADULT & PED PED IMER 66799 CENTRAL LI POST-VOID 6 [facility] KIEL ING ADULT & RESIDUAL PED URINE&/BL ADDER CAP CYSTO 04836 CENTRAL LI CALIBRATI 6 [facility] KIEL ON DILAT ADULT & URTL PED STRIX/HEIDI NOSIS DRUG TST G0477 CENTRAL LI PRESUMP;C 6 SHEBA DYSON PBL BEING ADULT & READ DC PED OPT OBV ONLY URNLS DIP 65927 RAMÓN MELGAR 6 [facility] STICK/TAB INC INC LET REAGENT AUTO MICROSCOP Y ADMN SET A7003 JANEL ISLAS SM VOL 6 HOME HOME NONFILTR MEDICAL MEDICAL PNEUMAT EQUIPME EQUIPME NEBULIZR DISPBL THERAPEUT 04645 [facility] 5 Y Y [facility] TIC/DX INJECTION SUBQ/[place] [address] RAMÓN MELGAR ABDOMEN & 5 [facility] PELVIS INC INC W/O CONTRAST MATERIAL BLOOD 76911 RAMÓN MELGAR COUNT 5 [facility] COMPLETE INC INC AUTO&[place] [address] RAMÓN MELGAR LIPASE 5 [facility] INC INC URNLS DIP 35643 RAMÓN MELGAR 5 [facility] STICK/TAB INC INC [place] [address] RAMÓN MELGAR AMYLASE 5 [facility] INC INC COMPREHEN 08349 RAMÓN MELGAR SIVE 5 [facility] METABOLIC INC INC PANEL MRI [address] [facility] SEGALCELE SPINAL 5 MEDICAL MARIO CANAL IMAGING LUMBAR ASS W/O CONTRAST MATERIAL RADEX 87501 RAMÓN MELGAR ORBITS 5 [facility] COMPLETE INC INC MINIMUM 4 VIEWS RADIOLOGI 66293 [facility] YONI Freeman 5 MEDICAL IVANNA EXAMINATI IMAGING ON EYE ASS DETECT FOREIGN BODY 3D 71278 SHEBA CELE RENDERING 5 MEDICAL MARIO W/INTERP IMAGING & ASS POSTPROCE SS SUPERVISI ON HEMOGLOBI 33940 RAMÓN MELGAR N 5 [facility] GLYCOSYLA INC INC THERESA A1C COLLECTIO 35453 RAMÓN MELGAR N VENOUS 5 [facility] BLOOD [place] [address] RAMÓN MELGAR FREE 5 [facility] [place] [address] RAÓMN MELGAR THYROID 5 [facility] STIMULATI INC INC NG HORMONE TSH BASIC 92306 RAMÓN RAMÓN METABOLIC 5 [facility] PANEL INC INC CALCIUM TOTAL RADEX 59809 [place] CELE FINGR 5 MEDICAL MARIO MINIMUM 2 IMAGING VIEWS ASS RADEX 07471 [place] CELE SPINE 4 MEDICAL MARIO LUMBOSACR IMAGING AL ASS MINIMUM 4 VIEWS RADIOLOGI 45528 [place] CELE C 4 MEDICAL MARIO EXAMINATI IMAGING [place] [address] [place] CELE ABDOMEN & 4 MEDICAL MARIO PELVIS IMAGING W/O ASS CONTRAST MATERIAL RADIOLOGI 77416 [place] CELE C 4 MEDICAL MARIO EXAMINATI IMAGING ON PELVIS ASS 1/2 VIEWS RADIOLOGI 86335 [place] CELE C EXAM 4 MEDICAL MARIO CHEST 2 IMAGING VIEWS ASS FRONTAL&L ATERAL KNEE L1830 [employer] ORTHOSIS 4 IMMOBLIZE R CANVAS LONGTUDNL PREFAB RADEX 18549 RAMÓN MELGAR SHOULDER 4 [facility] COMPLETE INC INC MINIMUM 2 VIEWS INCISION 40298 KANDI MILES & 4 [place] [address] BELCHER JAM BELCHER JAM ABDOMEN & 4 PELVIS W/O CONTRAST MATERIAL NEBULIZER E0570 JANEL ISLAS WITH 4 HOME HOME COMPRESSO MEDICAL MEDICAL R EQUIPME EQUIPME ADMN SET A7003 YOUR YOUR SM VOL [facility] NEBULIZR DISPBL COMPREHEN 78679 RAMÓN MELGAR SIVE 3 [facility] METABOLIC INC INC PANEL HEMOGLOBI 54876 RAMÓN MELGAR N 3 [facility] GLYCOSYLA INC INC THERESA A1C BLOOD 78472 RAMÓN MELGAR COUNT 3 [facility] COMPLETE INC INC AUTO&[place] [address] RAMÓN MELGAR THYROXINE 3 [facility] [place] [address] RAMÓN MELGAR THYROID 3 [facility] STIMULATI INC INC NG HORMONE TSH LIPID 89720 RAMÓN MELGAR PANEL 3 [facility] INC INC RADEX 63237 KOSTELIC KOSTELIC SPINE 3 VINICIO VINICIO LUMBOSACR AL 2/3 VIEWS SIMPLE 54441 YARIEL RODRIGUEZ MAR REPAIR 3 EMERGENCY SCALP/NEC SERVICES K/AX/MAIRA T/TRUNK 2.5CM/< [place] [address] BELCHER JAM BELCHER JAM ABDOMEN & 3 PELVIS W/O CONTRAST MATERIAL URNLS DIP 37140 RAMÓN MELGAR 3 [facility] STICK/TAB INC INC LET REAGENT AUTO MICROSCOP Y RADIOLOGI 31094 MARIBELL C MARIBELL C C EXAM 2 CHEST 2 VIEWS FRONTAL&L ATERAL RADIOLOGI 11647 [facility] [place] MASTERS C EXAM 2 RADIOLOGY JOSHUA CHEST 2 VIEWS FRONTAL&L ATERAL RADEX 43305 [facility] [place] JAY HAND 2 RADIOLOGY LIZA MINIMUM 3 VIEWS RADEX 14677 [facility] [place] TRISH HAND 2 RADIOLOGY RHO MINIMUM 3 VIEWS RADEX TOE 24327 [place] CELE MINIMUM 2 MEDICAL MARIO [address] [place] [address] [facility] [place] ABDOMEN & 2 RADIOLOGY RAY PELVIS W/[place] [address] RAMÓN MELGAR ABDOMEN & 2 [facility] PELVIS INC INC W/O CONTRAST MATERIAL BLOOD 11393 RAMÓN MELGAR COUNT 2 [facility] COMPLETE INC INC AUTO&AUTO DIFRNTL WBC 3D 62954 RAMÓN MELGAR RENDERING 2 [facility] INC INC W/INTERP& POSTPROC DIFF WORK STATION URNLS DIP 16002 RAMÓN MELGAR 2 [facility] STICK/TAB INC INC LET REAGENT AUTO MICROSCOP Y BASIC 94200 RAMÓN RAMÓN METABOLIC 2 [facility] PANEL INC INC CALCIUM TOTAL RADIOLOGI 72124 [facility] GRACIE NELSON MAT C 2 RADIOLOGY EXAMINATI ON KNEE 3 [place] [address] [facility] [place] OMAR GE SCROTUM & 2 RADIOLOGY CONTENTS RADEX 97818 JENNIFER RODRIGUEZ FINGR [address] [facility] VIEWS DUP-SCAN 65312 [facility] [place] SIMI [place] ARTL RAIZA 2 RADIOLOGY ABDL/PEL/ SCROT&/RP R ORGN LMT RADEX 49677 [place] GERALD JAM HAND 2 MEDICAL MINIMUM 3 SERV VIEWS FOUNDATIO RADEX 60085 [facility] [place] SCALF CLEMENTINE HAND 2 RADIOLOGY MINIMUM 3 VIEWS URNLS DIP 55893 RAMÓN MELGAR 2 [facility] STICK/TAB INC [place] [address] RAMÓN MELGAR SCROTUM & 2 [facility] CONTENTS INC INC RADEX 27442 [facility] [place] SPINE 2 [facility] AL 2/[address] LUMBAR 73040 GRACIE MERHAR SPINE 2 MEDICAL GAR W/O SERV CONTRAST FOUNDATIO MATERIAL SIMPLE 34770 OSWALDO CHACON REPAIR 2 JULIO JULIO SCALP/NEC K/AX/MAIRA T/TRUNK 2.5CM/< RADEX 57751 [facility] [place] TRISH HAND 2 RADIOLOGY RHO MINIMUM 3 VIEWS CUL BACT 55058 RAMÓN MELGAR AEROBIC 2 [facility] ADDL INC INC METHS DEFINITIV E EA ISOL CUL BACT 91497 RAMÓN MELGAR XCPT 2 [facility] URINE INC INC BLOOD/STO OL AEROBIC ISOL SUSCEPTIB 11531 RAMÓN MELGAR LTY STDY 2 [facility] ANTIMICRB INC INC IAL MICRO/AGA R DILUTJ INCISION 68798 RAMÓN MELGAR & 2 [facility] DRAINAGE INC INC ABSCESS SIMPLE/SI NGLE INCISION 22495 YARIEL OCHOA & 2 EMERGENCY CONCHIS DRAINAGE SERVICES ABSCESS COMPLICAT ED/MULTIP LE RADEX 84197 [facility] GRACIE NELSON MAT SPINE 2 RADIOLOGY LUMBOSACR AL 2/3 VIEWS RADEX 35909 RAMÓN MELGAR SPINE 2 [facility] LUMBOSACR INC INC AL MINIMUM 4 VIEWS RADEX 07719 [facility] GRACIE GE FINGR 2 RADIOLOGY MINIMUM 2 VIEWS APPLICATI 70220 DANNIELLE SPICER ON FINGER 1 ABD ABD SPLINT DYNAMIC WRIST L3807 TOBIAS CENTRAL HAND 1 SHARI SHEBA FINGR ORTHOPAED ORTHOS IC W/O JNT PREFAB CSTM FIT RADEX 96906 [facility] [place] OMAR MAT HAND 1 RADIOLOGY MINIMUM 3 VIEWS RADEX 28848 [place] DISANTIS HAND 1 MEDICAL REMINGTON MINIMUM 3 SERV VIEWS FOUNDATIO RADEX 94774 SHEBA CELE ANKLE 1 MEDICAL MARIO COMPLETE IMAGING MINIMUM 3 ASS VIEWS MANUAL 26190 ESCALANTE JULIO ESCALANTE JULIO THERAPY 1 TQS 1/> REGIONS EACH 15 MINUTES CHIROPRAC 36705 ESCALANTE JULIO ESCALANTE JULIO TIC 1 MANIPULAT [place] SPINAL 3-4 REGIONS APPL 25908 ESCALANTE JULIO ESCALANTE JULIO MODALITY 1 1/> AREAS TRACTION MECHANICA L APPL 93892 ESCALANTE JULIO ESCALANTE JULIO MODALITY 1 1/> AREAS ELEC STIMJ UNATTENDE D CHIROPRAC 98399 ESCALANTE JULIO ESCALANTE JULIO TIC 1 MANIPLTV TX EXTRASPIN AL 1/> REGION THERAPEUT 79296 SECALANTE JULIO ESCALANTE JULIO IC PX 1/> 1 AREAS EACH 15 MIN EXERCISES APPLICATI 50160 ESCALANTE JULIO ESCALANTE UJLIO ON 1 MODALITY 1/> AREAS HOT/COLD PACKS APPLICATI 33868 ESCALANTE JULIO ESCALANTE JULIO ON 1 MODALITY 1/> AREAS HOT/COLD PACKS THERAPEUT 73977 ESCALANTE JULIO ESCALANTE JULIO IC PX 1/> 1 AREAS EACH 15 MIN EXERCISES CHIROPRAC 11091 ESCALANTE JULIO ESCALANTE JULIO TIC 1 MANIPLTV TX EXTRASPIN AL 1/> REGION APPL 46457 ESCALANTE JULIO ESCALANTE JULIO MODALITY 1 1/> AREAS ELEC STIMJ UNATTENDE D CHIROPRAC 54771 ESCALANTE JULIO ESCALANTE JULIO TIC 1 MANIPULAT [place] SPINAL 3-4 REGIONS MANUAL 63877 ESCALANTE JULIO ESCALANTE JULIO THERAPY 1 TQS 1/> REGIONS EACH 15 MINUTES APPL 68445 ESCALANTE JULIO ESCALANTE JULIO MODALITY 1 1/> AREAS TRACTION MECHANICA L MANUAL 46488 ESCALANTE JULIO ESCALANTE JULIO THERAPY 1 TQS 1/> REGIONS EACH 15 MINUTES APPL 46955 ESCALANTE JULIO ESCALANTE JULIO MODALITY 1 1/> AREAS TRACTION MECHANICA L APPL 93630 ESCALANTE JULIO ESCALANTE JULIO MODALITY 1 1/> AREAS ELEC STIMJ UNATTENDE D CHIROPRAC 26140 ESCALANTE JULIO ESCALANTE JULIO TIC 1 MANIPULAT [place] SPINAL 3-4 REGIONS CHIROPRAC 67033 ESCALANTE JULIO ESCALANTE JULIO TIC 1 MANIPLTV TX EXTRASPIN AL 1/> REGION THERAPEUT 44556 ESCALANTE JULIO ESCALANTE JULIO IC PX 1/> 1 AREAS EACH 15 MIN EXERCISES APPLICATI 00375 ESCALANTE JULIO ESCALANTE JULIO ON 1 MODALITY 1/> AREAS HOT/COLD PACKS APPLICATI 26217 ESCALANTE JULIO ESCALANTE JULIO ON 1 MODALITY 1/> AREAS HOT/COLD PACKS THERAPEUT 66839 ESCALANTE JULIO ESCALANTE JULIO IC PX 1/> 1 AREAS EACH 15 MIN EXERCISES CHIROPRAC 70307 ESCALANTE JULIO ESCALANTE JULIO TIC 1 MANIPLTV TX EXTRASPIN AL 1/> REGION APPL 39700 ESCALANTE JULIO ESCALANTE JULIO MODALITY 1 1/> AREAS ELEC STIMJ UNATTENDE D APPL 88995 ESCALANTE JULIO ESCALANTE JULIO MODALITY 1 1/> AREAS TRACTION MECHANICA L CHIROPRAC 75756 ESCALANTE JULIO ESCALANTE JULIO TIC 1 MANIPULAT [place] SPINAL 3-4 REGIONS MANUAL 93234 ESCALANTE JULIO ESCALANTE JULIO THERAPY 1 TQS 1/> REGIONS EACH 15 MINUTES MANUAL 10864 ESCALANTE JULIO ESCALANTE JULIO THERAPY 1 TQS 1/> REGIONS EACH 15 MINUTES APPL 42773 ESCALANTE JULIO ESCALANTE JULIO MODALITY 1 1/> AREAS TRACTION MECHANICA L CHIROPRAC 59116 ESCALNATE JULIO ESCALANTE JULIO TIC 1 MANIPULAT [place] SPINAL 3-4 REGIONS APPL 88634 ESCALANTE JULIO ESCALANTE JULIO MODALITY 1 1/> AREAS ELEC STIMJ UNATTENDE D CHIROPRAC 32317 ESCALANTE JULIO ESCALANTE JULIO TIC 1 MANIPLTV TX EXTRASPIN AL 1/> REGION THERAPEUT 80410 ESCALANTE JULIO ESCALANTE JULIO IC PX 1/> 1 AREAS EACH 15 MIN EXERCISES APPLICATI 27969 ESCALANTE JULIO ESCALANTE JULIO ON 1 MODALITY 1/> AREAS HOT/COLD PACKS APPLICATI 70835 ESCALANTE JULIO ESCALANTE JULIO ON 1 MODALITY 1/> AREAS HOT/COLD PACKS THERAPEUT 83500 ESCALANTE JULIO ESCALANTE JULIO IC PX 1/> 1 AREAS EACH 15 MIN EXERCISES CHIROPRAC 39015 ESCALANTE JULIO ESCALANTE JULIO TIC 1 MANIPLTV TX EXTRASPIN AL 1/> REGION APPL 67595 ESCALANTE JULIO ESCALANTE JULIO MODALITY 1 1/> AREAS ELEC STIMJ UNATTENDE D CHIROPRAC 43383 ESCALANTE JULIO ESCALANTE JULIO TIC 1 MANIPULAT [place] SPINAL 3-4 REGIONS APPL 21659 ESCALANTE JULIO ESCALANTE JULIO MODALITY 1 1/> AREAS TRACTION MECHANICA L MANUAL 55621 ESCALANTE JULIO ESCALANTE JULIO THERAPY 1 TQS 1/> REGIONS EACH 15 MINUTES MANUAL 17708 ESCALANTE JULIO ESCALANTE JULIO THERAPY 1 TQS 1/> REGIONS EACH 15 MINUTES APPL 51437 ESCALANTE JULIO ESCALANTE JULIO MODALITY 1 1/> AREAS TRACTION MECHANICA L CHIROPRAC 01406 ESCALANTE JULIO ESCALANTE JULIO TIC 1 MANIPULAT [place] SPINAL 3-4 REGIONS APPL 65236 ESCALANTE JULIO ESCALANTE JULIO MODALITY 1 1/> AREAS ELEC STIMJ UNATTENDE D CHIROPRAC 62522 ESCALANTE JULIO ESCALANTE JULIO TIC 1 MANIPLTV TX EXTRASPIN AL 1/> REGION THERAPEUT 54008 ESCALANTE JULIO ESCALANTE JULIO IC PX 1/> 1 AREAS EACH 15 MIN EXERCISES APPLICATI 60201 ESCALANTE JULIO ESCALANTE JULIO ON 1 MODALITY 1/> AREAS HOT/COLD PACKS APPLICATI 91227 ESCALANTE JULIO ESCALANTE JULIO ON 1 MODALITY 1/> AREAS HOT/COLD PACKS THERAPEUT 48817 ESCALANTE JULIO ESCALANTE JULIO IC PX 1/> 1 AREAS EACH 15 MIN EXERCISES CHIROPRAC 75213 ESCALANTE JULIO ESCALANTE JULIO TIC 1 MANIPLTV TX EXTRASPIN AL 1/> REGION APPL 19400 ESCALANTE JULIO ESCALANTE JULIO MODALITY 1 1/> AREAS ELEC STIMJ UNATTENDE D CHIROPRAC 06034 ESCALANTE JULIO ESCALANTE JULIO TIC 1 MANIPULAT [place] SPINAL 3-4 REGIONS APPL 49221 ESCALANTE JULIO ESCALANTE JULIO MODALITY 1 1/> AREAS TRACTION MECHANICA L MANUAL 69488 ESCALANTE JULIO ESCALANTE JULIO THERAPY 1 TQS 1/> REGIONS EACH 15 MINUTES MANUAL 45203 ESCALANTE JULIO ESCALANTE JULIO THERAPY 1 TQS 1/> REGIONS EACH 15 MINUTES APPL 47666 ESCALANTE JULIO ESCALANTE JULIO MODALITY 1 1/> AREAS TRACTION MECHANICA L APPL 09107 ESCALANTE JULIO ESCALANTE JULIO MODALITY 1 1/> AREAS ELEC STIMJ UNATTENDE D CHIROPRAC 79165 ESCALANTE JULIO ESCALANTE JULIO TIC 1 MANIPLTV TX EXTRASPIN AL 1/> REGION CHIROPRAC 26357 ESCALANTE JULIO ESCALANTE JULIO TIC 1 MANIPULAT [place] SPINAL 3-4 REGIONS APPLICATI 32575 ESCALANTE JULIO ESCALANTE JULIO ON 1 MODALITY 1/> AREAS HOT/COLD PACKS THERAPEUT 94226 ESCALANTE JULIO ESCALANTE JULIO IC PX 1/> 1 AREAS EACH 15 MIN EXERCISES THERAPEUT 01542 ESCALANTE JULIO ESCALANTE JULIO IC PX 1/> 1 AREAS EACH 15 MIN EXERCISES APPLICATI 23176 ESCALANTE JULIO ESCALANTE JULIO ON 1 MODALITY 1/> AREAS HOT/COLD PACKS CHIROPRAC 56423 ESCALANET JULIO ESCALANTE JULIO TIC 1 MANIPULAT [place] SPINAL 3-4 REGIONS CHIROPRAC 87524 ESCALANTE JULIO ESCALANTE JULIO TIC 1 MANIPLTV TX EXTRASPIN AL 1/> REGION APPL 42960 ESCALANTE JULIO ESCALANTE JULIO MODALITY 1 1/> AREAS ELEC STIMJ UNATTENDE D APPL 64893 ESCALANTE JULIO ESCALANTE JULIO MODALITY 1 1/> AREAS TRACTION MECHANICA L MANUAL 00688 ESCALANTE JULIO ESCALANTE JULIO THERAPY 1 TQS 1/> REGIONS EACH 15 MINUTES MANUAL 43413 ESCALANTE JULIO ESCALANTE JULIO THERAPY 1 TQS 1/> REGIONS EACH 15 MINUTES CHIROPRAC 54623 ESCALANTE JULIO ESCALANTE JULIO TIC 1 MANIPULAT [place] SPINAL 3-4 REGIONS APPL 04037 ESCALANTE JULIO ESCALANTE JULIO MODALITY 1 1/> AREAS ELEC STIMJ UNATTENDE D APPL 17240 ESCALANTE JULIO ESCALANTE JULIO MODALITY 1 1/> AREAS TRACTION MECHANICA L CHIROPRAC 57854 ESCALANTE JULIO ESCALANTE JULIO TIC 1 MANIPLTV TX EXTRASPIN AL 1/> REGION APPLICATI 43681 ESCALANTE JULIO ESCALANTE JULIO ON 1 MODALITY 1/> AREAS HOT/COLD PACKS THERAPEUT 25479 ESCALANTE JULIO ESCALANTE JULIO IC PX 1/> 1 AREAS EACH 15 MIN EXERCISES THERAPEUT 55739 ESCALANTE JULIO ESCALANTE JULIO IC PX 1/> 1 AREAS EACH 15 MIN EXERCISES APPLICATI 41333 ESCALANTE JULIO ESCALANTE JULIO ON 1 MODALITY 1/> AREAS HOT/COLD PACKS CHIROPRAC 85691 ESCALANTE JULIO ESCALANTE JULIO TIC 1 MANIPLTV TX EXTRASPIN AL 1/> REGION APPL 47752 ESCALANTE JULIO ESCALANTE JULIO MODALITY 1 1/> AREAS TRACTION MECHANICA L APPL 37184 ESCALANTE JULIO ESCALANTE JULIO MODALITY 1 1/> AREAS ELEC STIMJ UNATTENDE D CHIROPRAC 04138 ESCALANTE JULIO ESCALANTE JULIO TIC 1 MANIPULAT [place] SPINAL 3-4 REGIONS MANUAL 91011 ESCALANTE JULIO ESCALANTE JULIO THERAPY 1 TQS 1/> REGIONS EACH 15 MINUTES MANUAL 36255 ESCALANTE JULIO ESCALANTE JULIO THERAPY 1 TQS 1/> REGIONS EACH 15 MINUTES CHIROPRAC 17049 ESCALANTE JULIO ESCALANTE JULIO TIC 1 MANIPULAT [place] SPINAL 3-4 REGIONS APPL 57291 ESCALANTE JULIO ESCALANTE JULIO MODALITY 1 1/> AREAS ELEC STIMJ UNATTENDE D APPL 85284 ESCALANTE JULIO ESCALANTE JULIO MODALITY 1 1/> AREAS TRACTION MECHANICA L CHIROPRAC 42409 ESCALANTE JULIO ESCALANTE JULIO TIC 1 MANIPLTV TX EXTRASPIN AL 1/> REGION APPLICATI 45343 ESCALANTE JULIO ESCALANTE JULIO ON 1 MODALITY 1/> AREAS HOT/COLD PACKS THERAPEUT 94539 ESCALANTE JULIO ESCALANTE JULIO IC PX 1/> 1 AREAS EACH 15 MIN EXERCISES THERAPEUT 07142 ESCALANTE JULIO ESCALANTE JULIO IC PX 1/> 1 AREAS EACH 15 MIN EXERCISES APPLICATI 65873 ESCALANTE JULIO ESCALANTE JULIO ON 1 MODALITY 1/> AREAS HOT/COLD PACKS CHIROPRAC 56285 ESCALANTE JULIO ESCALANTE JULIO TIC 1 MANIPLTV TX EXTRASPIN AL 1/> REGION APPL 11769 ESCALANTE JULIO ESCALANTE JULIO MODALITY 1 1/> AREAS TRACTION MECHANICA L APPL 26991 ESCALANTE JULIO ESCALANTE JULIO MODALITY 1 1/> AREAS ELEC STIMJ UNATTENDE D CHIROPRAC 14438 ESCALANTE JULIO ESCALANTE JULIO TIC 1 MANIPULAT [place] SPINAL 3-4 REGIONS MANUAL 95498 ESCALANTE JULIO ESCALANTE JULIO THERAPY 1 TQS 1/> REGIONS EACH 15 MINUTES APPLICATI 56507 ESCALANTE JULIO ESCALANTE JULIO ON 1 MODALITY 1/> AREAS HOT/COLD PACKS APPL 84080 ESCALANTE JULIO ESCALANTE JULIO MODALITY 1 1/> AREAS TRACTION MECHANICA L MANUAL 83108 ESCALANTE JULIO ESCALANTE JULIO THERAPY 1 TQS 1/> REGIONS EACH 15 MINUTES CHIROPRAC 54707 ESCALANTE JULIO ESCALANTE JULIO TIC 1 MANIPLTV TX EXTRASPIN AL 1/> REGION CHIROPRAC 28587 ESCALANTE JULIO ESCALANTE JULIO TIC 1 MANIPULAT [place] SPINAL 3-4 REGIONS APPL 12480 ESCALANTE JULIO ESCALANTE JULIO MODALITY 1 1/> AREAS ELEC STIMJ UNATTENDE D THERAPEUT 63239 ESCALANTE JULIO ESCALANTE JULIO IC PX 1/> 1 AREAS EACH 15 MIN EXERCISES THERAPEUT 61166 ESCALANTE JULIO ESCALANTE JULIO IC PX 1/> 1 AREAS EACH 15 MIN EXERCISES CHIROPRAC 10486 ESCALANTE JULIO ESCALANTE JULIO TIC 1 MANIPULAT [place] SPINAL 3-4 REGIONS APPL 32495 ESCALANTE JULIO ESCALANTE JULIO MODALITY 1 1/> AREAS ELEC STIMJ UNATTENDE D CHIROPRA 48222 ESCALANTE JULIO ESCALANTE JULIO TIC 1 MANIPLTV TX EXTRASPIN AL 1/> REGION MANUAL 63269 ESCALANTE JULIO ESCALANTE JULIO THERAPY 1 TQS 1/> REGIONS EACH 15 MINUTES APPL 56407 ESCALANTE JULIO ESCALANTE JULIO MODALITY 1 1/> AREAS TRACTION MECHANICA L APPLICATI 68215 ESCALANTE JULIO ESCALANTE JULIO ON 1 MODALITY 1/> AREAS HOT/COLD PACKS APPLICATI 80264 ESCALANTE JULIO ESCALANTE JULIO ON 1 MODALITY 1/> AREAS HOT/COLD PACKS APPL 87262 ESCALANTE JULIO ESCALANTE JULIO MODALITY 1 1/> AREAS TRACTION MECHANICA L MANUAL 04784 ESCALANTE JULIO ESCALANTE JULIO THERAPY 1 TQS 1/> REGIONS EACH 15 MINUTES CHIROPRAC 77863 ESCALANTE JULIO ESCALANTE JULIO TIC 1 MANIPLTV TX EXTRASPIN AL 1/> REGION APPL 93390 ESCALANTE JULIO ESCALANTE JULIO MODALITY 1 1/> AREAS ELEC STIMJ UNATTENDE D CHIROPRAC 11077 ESCALANTE JULIO ESCALANTE JULIO TIC 1 MANIPULAT [place] SPINAL 3-4 REGIONS THERAPEUT 54517 ESCALANTE JUILO ESCALANTE JULIO IC PX 1/> 1 AREAS EACH 15 MIN EXERCISES THERAPEUT 51533 ESCALANTE JULIO ESCALANTE JULIO IC PX 1/> 1 AREAS EACH 15 MIN EXERCISES CHIROPRAC 47594 ESCALANTE JULIO ESCALANTE JULIO TIC 1 MANIPULAT [place] SPINAL 3-4 REGIONS APPL 90125 ESCALANTE JULIO ESCALANTE JULIO MODALITY 1 1/> AREAS ELEC STIMJ UNATTENDE D CHIROPRAC 16787 ESCALANTE JULIO ESCALANTE JULIO TIC 1 MANIPLTV TX EXTRASPIN AL 1/> REGION MANUAL 16959 ESCALANTE JULIO ESCALANTE JULIO THERAPY 1 TQS 1/> REGIONS EACH 15 MINUTES APPL 73411 ESCALANTE JULIO ESCALANTE JULIO MODALITY 1 1/> AREAS TRACTION MECHANICA L APPLICATI 88218 ESCALANTE JULIO ESCALANTE JULIO ON 1 MODALITY 1/> AREAS HOT/COLD PACKS APPLICATI 10909 ESCALANTE JULIO ESCALANTE JULIO ON 1 MODALITY 1/> AREAS HOT/COLD PACKS RADEX 82756 [place] GERALD JAM FOOT 1 MEDICAL COMPLETE SERV MINIMUM 3 FOUNDATIO VIEWS APPL 53417 ESCALANTE JULIO ESCALANTE JULIO MODALITY 1 1/> AREAS TRACTION MECHANICA L MANUAL 51734 ESCALANTE JULIO ESCALANTE JULIO THERAPY 1 TQS 1/> REGIONS EACH 15 MINUTES CHIROPRAC 87207 ESCALANTE JULIO ESCALANTE JULIO TIC 1 MANIPLTV TX EXTRASPIN AL 1/> REGION APPL 33372 ESCALANTE JULIO ESCALANTE JULIO MODALITY 1 1/> AREAS ELEC STIMJ UNATTENDE D CHIROPRAC 95383 ESCALANTE JULIO ESCALANTE JULIO TIC 1 MANIPULAT [place] SPINAL 3-4 REGIONS THERAPEUT 96894 ESCALANTE JULIO ESCALANTE JULIO IC PX 1/> 1 AREAS EACH 15 MIN EXERCISES RADEX 28305 [facility] [place] TRISH FOOT 1 RADIOLOGY RHO COMPLETE MINIMUM 3 VIEWS MANUAL 96741 ESCALANTE JULIO ESCALANTE JULIO THERAPY 1 TQS 1/> REGIONS EACH 15 MINUTES APPL 86280 ESCALANTE JULIO ESCALANTE JULIO MODALITY 1 1/> AREAS TRACTION MECHANICA L APPL 67916 ESCALANTE JULIO ESCALANTE JULIO MODALITY 1 1/> AREAS ELEC STIMJ UNATTENDE D CHIROPRAC 77233 ESCALANTE JULIO ESCALANTE JULIO TIC 1 MANIPULAT [place] SPINAL 3-4 REGIONS CHIROPRAC 54397 ESCALANTE JULIO ESCALANTE JULIO TIC 1 MANIPLTV TX EXTRASPIN AL 1/> REGION THERAPEUT 20241 ESCALANTE JULIO ESCALANTE JULIO IC PX 1/> 1 AREAS EACH 15 MIN EXERCISES APPLICATI 36527 ESCALANTE JULIO ESCALANTE JULIO ON 1 MODALITY 1/> AREAS HOT/COLD PACKS APPLICATI 71726 ESCALANTE JULIO ESCALANTE JULIO ON 1 MODALITY 1/> AREAS HOT/COLD PACKS THERAPEUT 33986 ESCALANTE JULIO ESCALANTE JULIO IC PX 1/> 1 AREAS EACH 15 MIN EXERCISES CHIROPRAC 70661 ESCALANTE JULIO ESCALANTE JULIO TIC 1 MANIPLTV TX EXTRASPIN AL 1/> REGION APPL 62776 ESCALANTE JULIO ESCALANTE JULIO MODALITY 1 1/> AREAS ELEC STIMJ UNATTENDE D APPL 93821 ESCALANTE JULIO ESCALANTE JULIO MODALITY 1 1/> AREAS TRACTION MECHANICA L CHIROPRAC 78909 ESCALANTE JULIO ESCALANTE JULIO TIC 1 MANIPULAT [place] SPINAL 3-4 REGIONS MANUAL 21510 ESCALANTE JULIO ESCALANTE JULIO THERAPY 1 TQS 1/> REGIONS EACH 15 MINUTES MANUAL 53902 ESCALANTE JULIO ESCALANTE JULIO THERAPY 1 TQS 1/> REGIONS EACH 15 MINUTES APPL 60730 ESCALANTE JULIO ESCALANTE JULIO MODALITY 1 1/> AREAS TRACTION MECHANICA L CHIROPRAC 93210 ESCALANTE JULIO ESCALANTE JULIO TIC 1 MANIPULAT [place] SPINAL 3-4 REGIONS APPL 68572 ESCALANTE JULIO ESCALANTE JULIO MODALITY 1 1/> AREAS ELEC STIMJ UNATTENDE D CHIROPRAC 06160 ESCALANTE JULIO ESCALANTE JULIO TIC 1 MANIPLTV TX EXTRASPIN AL 1/> REGION THERAPEUT 71616 ESCALANTE JULIO ESCALANTE JULIO IC PX 1/> 1 AREAS EACH 15 MIN EXERCISES APPLICATI 92752 ESCALANTE JULIO ESCALANTE JULIO ON 1 MODALITY 1/> AREAS HOT/COLD PACKS RADEX 99769 [facility] [place] KOSTELIC SPINE 1 RADIOLOGY VINICIO LUMBOSACR AL 2/3 VIEWS APPLICATI 26026 ESCALANTE JULIO ESCALANTE JULIO ON 1 MODALITY 1/> AREAS HOT/COLD PACKS THERAPEUT 27391 ESCALANTE JULIO ESCALANTE JULIO IC PX 1/> 1 AREAS EACH 15 MIN EXERCISES CHIROPRAC 06227 ESCALANTE JULIO ESCALANTE JULIO TIC 1 MANIPLTV TX EXTRASPIN AL 1/> REGION APPL 35648 ESCALANTE JULIO ESCALANTE JULIO MODALITY 1 1/> AREAS ELEC STIMJ UNATTENDE D CHIROPRAC 06417 ESCALANTE JULIO ESCALANTE JULIO TIC 1 MANIPULAT [place] SPINAL 3-4 REGIONS APPL 16860 ESCALANTE JULIO ESCAALNTE JULIO MODALITY 1 1/> AREAS TRACTION MECHANICA L MANUAL 14957 ESCALANTE JULIO ESCALANTE JULIO THERAPY 1 TQS 1/> REGIONS EACH 15 MINUTES MANUAL 25207 ESCALANTE JULIO ESCALANTE JULIO THERAPY 1 TQS 1/> REGIONS EACH 15 MINUTES APPL 90429 ESCALANTE JULIO ESCALANTE JULIO MODALITY 1 1/> AREAS TRACTION MECHANICA L CHIROPRAC 76973 ESCALANTE JULIO ESCALANTE JULIO TIC 1 MANIPULAT [place] SPINAL 3-4 REGIONS APPL 48337 ESCALANTE JULIO ESCALANTE JULIO MODALITY 1 1/> AREAS ELEC STIMJ UNATTENDE D CHIROPRAC 72844 ESCALANTE JULIO ESCALANTE JULIO TIC 1 MANIPLTV TX EXTRASPIN AL 1/> REGION THERAPEUT 48149 ESCALANTE JULIO ESCALANTE JULIO IC PX 1/> 1 AREAS EACH 15 MIN EXERCISES APPLICATI 39117 ESCALANTE JULIO ESCALANTE JULIO ON 1 MODALITY 1/> AREAS HOT/COLD PACKS APPLICATI 11218 ESCALANTE JULIO ESCALANTE JULIO ON 1 MODALITY 1/> AREAS HOT/COLD PACKS THERAPEUT 07182 ESCALANTE JULIO ESCALANTE JULIO IC PX 1/> 1 AREAS EACH 15 MIN EXERCISES CHIROPRAC 92980 ESCALANTE JULIO ESCALANTE JULIO TIC 1 MANIPLTV TX EXTRASPIN AL 1/> REGION APPL 17163 ESCALANTE JULIO ESCALANTE JULIO MODALITY 1 1/> AREAS ELEC STIMJ UNATTENDE D CHIROPRAC 50524 ESCALANTE JULIO ESCALANTE JULIO TIC 1 MANIPULAT [place] SPINAL 3-4 REGIONS APPL 28266 ESCALANTE JULIO ESCALANTE JULIO MODALITY 1 1/> AREAS TRACTION MECHANICA L MANUAL 42656 ESCALANTE JULIO ESCALANTE JULIO THERAPY 1 TQS 1/> REGIONS EACH 15 MINUTES APPL 85257 ESCALANTE JULIO ESCALANTE JULIO MODALITY 1 1/> AREAS TRACTION MECHANICA L MANUAL 91606 ESCALANTE JULIO ESCALANTE JULIO THERAPY 1 TQS 1/> REGIONS EACH 15 MINUTES CHIROPRAC 26077 ESCALANTE JULIO ESCALANTE JULIO TIC 1 MANIPULAT [place] SPINAL 3-4 REGIONS APPL 03710 ESCALANTE JULIO ESCALANTE JULIO MODALITY 1 1/> AREAS ELEC STIMJ UNATTENDE D CHIROPRAC 94989 ESCALANTE JULIO ESCALANTE JULIO TIC 1 MANIPLTV TX EXTRASPIN AL 1/> REGION THERAPEUT 35971 ESCALANTE JULIO ESCALANTE JULIO IC PX 1/> 1 AREAS EACH 15 MIN EXERCISES APPLICATI 60651 ESCALANTE JULIO ESCALANTE JULIO ON 1 MODALITY 1/> AREAS HOT/COLD PACKS RADIOLOGI 82320 [facility] [place] OMAR MAT C EXAM 1 RADIOLOGY CHEST 2 VIEWS FRONTAL&L ATERAL RADEX 52660 [facility] SPINE 1 Y Y THORACIC [facility] 2 VIEWS RADEX 58358 [facility] SPINE 1 Y Y THORACIC [facility] 2 VIEWS RADIOLOGI 65667 [facility] C EXAM 1 Y Y CHEST 2 HOSPITAL HOSPITAL VIEWS FRONTAL&L ATERAL RADEX 77426 [facility] [place] LASHAE ELBOW 1 RADIOLOGY DANNI COMPLETE MINIMUM 3 VIEWS RPR 63783 V[facility]USW[facility] VENGUSWAM UMBILICAL 1 Y CATARINA Y CATARINA HRNA 5 YRS/> [place] [address] CHIPPS MOSES JAM SURG 1 MARLON & PATHOLOGY TING GROSS&CONCHIS ROSCOPIC EXAM SIMPLE 75351 YARIEL GALO REPAIR 1 EMERGENCY CHAU SCALP/NEC SERVICES K/AX/MAIRA T/TRUNK 2.5CM/< URNLS DIP 10187 [facility] 1 N N STICK/TAB [facility] LET HOSPITA HOSPITA REAGENT AUTO MICROSCOP Y THERAPEUT 85980 [facility] IC 1 N N PROPHYLAC [facility] TIC/DX HOSPITA HOSPITA INJECTION SUBQ/IM ECG 41192 [facility] ROUTINE 1 N N ECG [facility] W/LEAST HOSPITA HOSPITA 12 LDS TRCG ONLY W/O I&R BLOOD 66380 [facility] COUNT 1 N N SMEAR [facility] MCRSCP HOSPITA HOSPITA W/MNL DIFRNTL WBC COUNT THROMBOPL 50754 [facility] ASTIN 1 N N TIME [facility] PARTIAL HOSPITA HOSPITA PLASMA/WH OLE BLOOD RADIOLOGI 28351 [facility] GRACIE GE C EXAM 1 RADIOLOGY CHEST 2 VIEWS FRONTAL&L ATERAL BLOOD 85190 [facility] COUNT 1 N N COMPLETE [facility] AUTOMATED HOSPITA HOSPITA PROTHROMB 57809 [facility] IN TIME 1 N N [facility] HOSPITA HOSPITA COLLECTIO 99558 [facility] N VENOUS 1 N N BLOOD [facility] VENIPUNCT HOSPITA HOSPITA URE BASIC 04691 [facility] METABOLIC 1 N N PANEL [facility] CALCIUM HOSPITA HOSPITA TOTAL BLOOD 59349 [facility] DANNIELLE OCCULT 1 N URGENT ABD PEROXIDAS CARE E ACTV QUAL FECES 1 DETER IMMUNOASS 71520 [facility] DANNILELE AY NFCT 1 N URGENT ABD AGT ANTB CARE QUAL/SEMI LOUIE 1 STEP SERVICES 25082 [facility] DANNIELLE PROVIDED 1 N URGENT ABD OFFICE CARE OTH/THN REG SCHED HOURS MRI ANY 87569 [facility] GRACIE GE JT LOWER 1 RADIOLOGY EXTREM W/O CONTRAST MATRL SERVICES 86272 [facility] DANNIELLE PROVIDED 1 N URGENT ABD OFFICE CARE OTH/THN REG SCHED HOURS ACUTE 54216 [facility] HEPATITIS 1 N N PANEL [facility] HOSPITA HOSPITA HEPATITIS 14446 [facility] CORE 1 N N ANTIBODY [facility] HBCAB HOSPITA HOSPITA TOTAL HEPATITIS 78339 [facility] SURF 1 N N ANTIBODY [facility] HBSAB HOSPITA HOSPITA COLLECTIO 71243 [facility] N VENOUS 1 N N BLOOD [facility] VENIPUNCT HOSPITA HOSPITA URE HEPATITIS 08385 [facility] A 1 N N ANTIBODY [facility] HAAB HOSPITA HOSPITA RADIOLOGI 63836 [facility] [place] OMAR MAT C 1 RADIOLOGY EXAMINATI ON KNEE 3 VIEWS THERAPEUT 79974 [facility] DANNIELLE IC 1 N URGENT ABD PROPHYLAC CARE TIC/DX INJECTION SUBQ/IM ECG 86945 [facility] ROUTINE 0 ANNITA ADR ECG CARDIOLOG W/LEAST Y CLINIC 12 [facility] W/I&R COLLECTIO 35786 [facility] N VENOUS 0 N N BLOOD [facility]OSPITA URE ACUTE 09201 [facility] HEPATITIS 0 N N PANEL [facility] [place] [address] [facility] GRACIE EG ABDOMINAL 0 RADIOLOGY REAL TIME W/IMAGE LIMITED LIPID 81000 [facility] PANEL 0 N N [facility] HOSPITA HOSPITA COLLECTIO 28015 [facility] N VENOUS 0 N N BLOOD [facility] [place] [address] [facility] THYROID 0 N N STIMULATI [facility] NG HOSPITA HOSPITA HORMONE TSH COMPREHEN 42532 [facility] SIVE 0 N N METABOLIC [facility] HOSPITA SERVICES 41812 [facility] DANNIELLE PROVIDED 0 N URGENT ABD OFFICE CARE OTH/THN REG SCHED HOURS MRI 36276 [facility] [place] TRISH SPINAL 0 RADIOLOGY RHO CANAL CERVICAL W/O CONTRAST MATRL RADEX 29233 [place] CELE ELBOW 0 MEDICAL MARIO COMPLETE IMAGING MINIMUM 3 ASS VIEWS SERVICES 88533 [facility] DANNIELLE PROVIDED 0 N URGENT ABD OFFICE CARE OTH/THN REG SCHED HOURS COMPREHEN 98151 [facility] SIVE 0 [place] [facility] METABOLIC PANEL GLUCOSE 50050 [facility] SPICER QUANTITAT 0 N URGENT ABD [place]ARY BLOOD CARE XCPT REAGENT STRIP HEMOGLOBI 42218 [facility] N 0 [place] [facility] GLYCOSYLA THERESA A1C BLOOD 40972 [facility] COUNT 0 [facility] COMPLETE AUTO&[place] [address] [facility] FOLIC 0 [place] [facility] ACID SERUM NDL EMG 1 38514 GARCÍA TRA GARCÍA TRA XTR W/WO 0 RELATED PARASPINA L AREAS NRV CNDJ 62771 GARCÍA TRA GARCÍA TRA AMPLT&LAT 0 NCY EA NRV MOTR W/O F-WAVE STD NRV CNDJ 85304 GARCÍA TRA GARCÍA TRA AMPLT&LAT 0 ENCY EA NRV MOTOR W/F-WAVE STD NRV CNDJ 59364 GARCÍA TRA GARCÍA TRA AMPLITUDE 0 & LATENCY EACH NERVE SENSORY RADEX 99797 [facility] ESSIEKai ELBOW 0 N N COMPLETE [facility] MINIMUM 3 HOSPITA HOSPITA VIEWS RADEX 29239 [facility] [place] OMAR MAT HAND 0 RADIOLOGY MINIMUM 3 VIEWS RADEX 68860 [facility] [place] OMAR MAT SPINE 0 RADIOLOGY LUMBOSACR AL 2/3 VIEWS RADEX 52361 [facility] [place] OMAR MAT WRIST 0 RADIOLOGY COMPLETE MIN[address] [place] [address] [facility] [place] OMAR MAT ABDOMEN 0 RADIOLOGY W/CONTRAS T MATERIAL CT PELVIS 85745 [facility] [place] OMAR MAT 0 RADIOLOGY W/CONTRAS T MATERIAL RADEX 03987 [place]ICK[place] SPINE 0 MEDICAL [place] LUMBOSACR SERV AL 2/3 FOUNDATIO VIEWS RADEX 53622 [place] SPINE 0 MEDICAL STEPH LUMBOSACR IMAGING AL ASS MINIMUM 4 VIEWS RADEX 93656 [place] SPINE 0 MEDICAL STEPH THORACIC IMAGING 3 VIEWS ASS RADEX 70804 [place] B[place] SPINE 0 MEDICAL STEPH CERVICAL IMAGING 6 OR MORE ASS VIEWS RADEX TOE 55951 [place] CELE MINIMUM 0 MEDICAL MARIO 2 VIEWS IMAGING ASS RADEX 14478 [facility] [place] OMAR, FOOT 0 RADIOLOGY WILLIAM D COMPLETE MINIMUM 3 VIEWS URNLS DIP 44263 RAMÓN MELGAR 0 [facility] STICK/TAB INC INC LET REAGENT AUTO MICROSCOP Y URNLS DIP 73679 [facility] 0 [facility] STICKTAB [facility] LET REAGENT AUTO MICROSCOP Y COLLECTIO 86690 [facility] N VENOUS 0 [facility] VENIPUNCT URE SUSCEPTIB 34340 [facility] LTY STDY 0 [facility] IAL MICRO/AGA R DILUTJ BLOOD 07389 [facility] COUNT [address] [facility] AUTO&AUTO DIFRNTL WBC CUL BACT 03766 [facility] XCPT 0 [facility] BLOOD/STO OL AEROBIC ISOL CULTURE 43300 [facility] BACTERIAL 0 [facility] QUANTTATI VE COLONY COUNT URINE BASIC 74193 [facility] METABOLIC 0 [facility] CALCIUM TOTAL RADEX 71470 [facility] [place] TRISH, ELBOW 0 RADIOLOGY HALLIE G COMPLETE MINIMUM 3 VIEWS DUP-SCAN 76193 [facility] [place] XTR VEINS 0 RADIOLOGY LD, A D UNILATERA L/LIMITED STUDY RADEX 70360 [facility] [place] MARTINEZ, G ELBOW 2 0 RADIOLOGY T VIEWS NONINVASI 30915 [facility] VE 0 Y Y EAR/PULSE HOSPITAL HOSPITAL OXIMETRY SINGLE DETER NONINVASI 54541 [facility] 0 Y Y EAR/PULSE HOSPITAL HOSPITAL OXIMETRY SINGLE DETER RADEX 22079 [facility] & 0 Y OF DIANE A [place] MINIMUM 2 HOSPITAL VIEWS RADEX TOE 60682 [facility] [place] OMAR, MINIMUM 0 RADIOLOGY WILLIAM D 2 VIEWS RADEX 69275 [place] FRNAK, FOOT 0 MEDICAL VALERIE N COMPLETE SERV MINIMUM 3 FOUNDATIO VIEWS CUL BACT 09579 JENNIFER RODRIGUEZ XCPT 9 [facility] BLOOD/STO OL AEROBIC ISOL SUSCEPTIB 28230 JENNIFER RODRIGUEZ LTY STDY 9 [facility] IAL MICRO/AGA R DILUTJ THERAPEUT [address] PROPHYLAC TIC/DX INJECTION SUBQ/IM RADEX 10928 [facility] GRACIE MASTERS, SPINE 9 RADIOLOGY TOBY A LUMBOSACR AL 2/3 VIEWS INJECTION J1885 [address] KETOROLAC TROMETHAM INE PER 15 MG RADEX 79570 [facility] GRACIE UREÑA ANKLE 9 RADIOLOGY J COMPLETE MINIMUM 3 VIEWS RADIOLOGI 74118 [facility] Lydia ANDUJAR 9 RADIOLOGY J EXAMINATI ON TIBIA & FIBULA 2 VIEWS STRAPPING 39525 [facility], ANKLE 9 JEFFY SMITH &/FOOT EMERGENCY A PHYS INC ANES 44814 BRUNA SY 9 ANESTHESI MIKE J MUSC & A GROUP NRV HEAD PSC NECK&POST ERIOR TRUNK EXCISION 04776 RUBY BELTRAN PILONIDADigna 9 , QUITA , QUITA CYST/SINU S SIMPLE LEVEL III 66837 PATHOLOGY PATHOLOGY SURG 9 & & PATHOLOGY CYTOLOGY CYTOLOGY LAB LAB GROSS&CONCHIS ROSCOPIC EXAM COLLECTIO 65948 JENNIFER RODRIGUEZ N VENOUS 9 [facility] VENIPUNCT URE BLOOD 62281 JENNIFER RODRIGUEZ COUNT [address] [facility] AUTO&AUTO DIFRNTL WBC BASIC 92256 JENNIFER RODRIGUEZ METABOLIC 9 [facility] CALCIUM TOTAL SUSCEPTIB 34741 RAMÓN MELGAR LTY STDY 9 [facility]OS[facility] ANTIMICRB INC INC IAL MICRO/AGA R DILUTJ CUL BACT 18902 RAMÓN MELGAR XCPT 9 [facility] URINE INC INC BLOOD/STO OL AEROBIC ISOL CUL BACT 32572 RAMÓN MELGAR AEROBIC 9 [facility] ADDL INC INC METHS DEFINITIV E EA ISOL APPLICATI 64250 [facility] SHORT 9 JEFFY W E LEG EMERGENCY SPLINT PHYS INC CALF FOOT RADEX 91977 [facility] ANKLE [address] [place] [address] COMPLETE MINIMUM 3 VIEWS RADEX 30177 [facility] FOOT [address] [place] [address] COMPLETE MINIMUM 3 VIEWS RADEX 35695 [facility] GRACIE SCALF, SPINE 9 RADIOLOGY BOY E LUMBOSACR AL 2/3 VIEWS RADEX 16638 [facility] [place] SPINE 9 MEDICAL RUY LUMBOSACR IMAGING AL ASSOCIATE MINIMUM 4 S VIEWS RADIOLOGI 40879 [place] CELE C 9 MEDICAL RUY EXAMINATI IMAGING ON PELVIS ASSOCIATE 1/2 S VIEWS BLOOD 74551 RAMÓN MELGAR COUNT 9 [facility] COMPLETE INC INC AUTO&AUTO DIFRNTL WBC 3D 75746 [place] BANDAR, RENDERING 9 MEDICAL PITER P IMAGING W/INTERP& ASSOCIATE POSTPROC S DIFF WORK STATION URNLS DIP 68133 RAMÓN MELAGR 9 [facility] STICK/TAB INC INC LET REAGENT AUTO MICROSCOP Y CT PELVIS 35357 RAMÓN MELGAR W/O 9 [facility] [address] RAMÓN RAMÓN ABDOMEN 9 [facility] W/O INC INC CONTRAST MATERIAL BASIC 70698 RAMÓN RAMÓN METABOLIC 9 [facility] PANEL INC INC CALCIUM TOTAL THERAPEUT 85371 [facility] IC [address] [place] [address] HOSPITAL PROPHYLAC TIC/DX INJECTION SUBQ/IM CUL BACT [address] URINE BLOOD/STO OL AEROBIC ISOL SMR PRIM [address] GRAM/GIEM SA STAIN BCT FUNGI/GAYATRI L RADEX 68319 [facility] [place] NIRANJAN, SPINE 9 RADIOLOGY J LUMBOSACR AL 2/3 VIEWS EXCISION 69189 Timur AMIN PILONIDAL 9 MEDICAL D SERV CYST/SINU FOUNDATIO S SIMPLE INJECTION J1100 [facility] 9 Y Y DEXAMETHO [facility] SONE SODIUM PHOSPHATE 1 MG INJECTION J2175 [facility] 9 Y Y MEPERIDIN [facility] E HCL PER 100 MG RINGERS J7120 [facility] LACTATE 9 Y Y INFUSION [facility] UP TO 1000 CC LEVEL III 81343 [facility] SURG 9 Y Y PATHOLOGY [facility] GROSS&CONCHIS ROSCOPIC EXAM INJECTION J2250 [facility] 9 Y Y MIDAZOLAM [facility] HCL PER 1 MG INJECTION J2270 [facility] MORPHINE 9 Y Y SULFATE [facility] UP TO 10 MG EXCISION 50726 [facility] PILONIDAL 9 Y Y [facility] CYST/SINU S EXTENSIVE ANES 82989 BRUNA MANCILLA 9 MEDICAL RUI MUSC & SERVICES NRV HEAD NECK&POST ERIOR TRUNK INJECTION J3010 [facility] FENTANYL 9 Y Y CITRATE [facility] 0.1 MG UNCLASSIF J3490 [facility] IED DRUGS 9 Y Y [facility] INJECTION J2405 [facility] 9 Y [facility] PER 1 MG HEPATIC 45507 [facility] FUNCTION 9 [place] INC PANEL INJECTION J2765 [facility] 9 Y Y METOCLOPR [facility] AMIDE HCL UP TO 10 MG INFUSION J7030 [facility] NORMAL 9 Y Y SALINE [facility] SOLUTION 1000 CC INJECTION J1200 [facility] 9 Y Y DIPHENHYD [facility] RAMINE HCL UP TO 50 MG INJECTION J1885 [facility] 9 Y Y KETOROLAC [facility] TROMETHAM INE PER 15 MG MYOCRD 63083 CARDIOLOG [place] [place] STD 8 Y EMILIE Mckeon WALL ASSOCIATE MOTION S OF QUAL/LOUIE [place] STD MYOCRD 35774 CARDIOLOG [place] IMG 8 Y EMILIE Mckeon TOMOG ASSOCIATE SPECT ALTERNATIVE MEDICINE PRACTITIONER S OF STD [place] MYOCRD 19805 CARDIOLOG DINO, PRFUJ STD 8 Y EMILIE Mckeon EJEC FXJ ASSOCIATE S OF [place] CV STRS 64666 CARDIOLOG DINO, TST 8 Y EMILIE Mckeon XERS&/OR ASSOCIATE RX CONT S OF ECG [place] W/SI&R BLOOD 29425 [facility] COUNT 8 N N [facility] AUT[facility] DIFRNTL WBC LIPID 35418 [facility] PANEL 8 N N [facility] COLLECTIO 98033 [facility] N VENOUS 8 N N BLOOD [facility] URE COMPREHEN 05149 [facility] SIVE 8 N N [facility] COMPREHEN 87605 OFFICE OFFICE SIV 8 [facility] METABOLIC DIAGNOSTI DIAGNOSTI PANEL C C SERVICES SERVICES ECG 38988 CARDIOLOG DINO, ROUTINE 8 Y EMILIE Mckeon ECG ASSOCIATE W/LEAST S OF 12 LDS [place] W/I&R ECG 44836 [facility] ROUTINE 8 N N ECG [facility] W/[facility]OSP[facility] 12 [facility] TRCG ONLY W/O I&R BLOOD 72987 [facility] 8 N N [facility] [place] [address] [facility] TROPONIN 8 N N QUANTITAT [facility] CREATINE 17774 [facility] KINASE 8 N N TOTAL [facility] COLLECTIO 80948 [facility] N VENOUS 8 N N BLOOD [facility] URE ECG 26843 [facility] CELLAROSI ROUTINE 8 JEFFY - YORBA, ECG EMERGENCY BLANCO W/LEAST PHYS INC M 12 [facility] I&R ONLY CREATINE 59846 [facility] KINASE MB 8 N N FRACTION [facility] RADIOLOGI 69954 [facility] CELLAR[facility] C 8 JEFFY - YORBA, EXAMINATI EMERGENCY BLANCO ON CHEST PHYS INC M [place] FRONTAL INITIAL 62576 [facility] OBSERVATI 8 N N ON [facility] 30 MINUTES COMPREHEN 90678 [facility] SIVE 8 N N METABOLIC [facility] AMB A0427 [facility] SERVICE 8 [facility] EMS EMERGENCY TRANSPORT LEVEL 1 GROUND A0425 [facility] MILEAGE 8 MARIA G [facility] PER CO EMS CO EMS STATUTE MILE RADIOLOGI 87698 [facility] AHMED, C 8 JEFFY SMITH EXAMINATI EMERGENCY A ON CHEST PHYS INC SINGLE VIEW FRONTAL ECG [id number] [facility] AHMED, ROUTINE 8 JEFFY SMITH ECG EMERGENCY A W/LEAST PHYS INC 12 LDS I&R ONLY Encounters Encounter Start End Date Code Location Performer Type Date EMERGENCY 93825 [facility] 7 7 [facility] HIGH/URGE NT SEVERITY EMERGENCY 37443 [facility]N 7 7 [facility] T VISIT LOW/MODER SEVERITY HOSPITAL RAMÓN - 7 7 [facility] T EMERGENCY 93324 RAMÓN 7 7 [facility] DEPARTMEN INC T VISIT LOW/MODER SEVERITY EMERGENCY 28459 [facility] DIAL 7 7 PHYSICIAN [facility]MEN [facility], [facility] VIS[facility] MODERATE SEVERITY HOSPITAL RAMÓN - 7 7 [facility] T EMERGENCY 75265 [facility] CHARLY 7 7 JEFFY DEPARTMEN EMERGENCY T VISIT PHYS HIGH/URGE NT SEVERITY EMERGENCY 97703 [facility] CALDERON 7 7 [facility] VISIT MODERATE SEVERITY EMERGENCY 34192 RAMÓN 7 7 [facility] DEPARTMEN INC T VISIT LOW/MODER SEVERITY HOSPITAL RAMÓN - 7 7 [facility] T EMERGENCY 72292 WALLY STEPHENSON 7 7 NURSE DEPARTMEN PRACTITIO T VISIT NER GR HIGH/URGE NT SEVERITY [facility] - 7 7 [facility] OFFICE 78403 [facility] 7 7 [place] NEW 30 PHYSICIAN MINUTES S ASSIST EMERGENCY 06008 [facility] 7 7 [place] DEPARTMEN PHYSICIAN T VISIT S MODERATE SEVERITY [facility] 7 7 [facility] OFFICE 36312 [facility] 7 7 PHYSICIAN T VISIT PRACTICE 15 L MINUTES OFFICE 33394 [facility] 7 7 PHYSICIAN T NEW 30 PRACTICE MINUTES L OFFICE 70407 [facility] 7 7 MEDICAL T NEW 45 SERV MINUTES FOUNDATIO N EMERGENCY 21081 [facility] 7 7 JEFFY DEPARTMEN EMERGENCY T VISIT PHYS MODERATE SEVERITY HOSPITAL - 6 6 [facility] OUTPATIEN [facility] T HOSPITALS EMERGENCY 73089 GRACIE DELAROSA 6 6 MEDICAL DEPARTMEN SERV T VISIT FOUNDATIO MODERATE N SEVERITY EMERGENCY 20306 6 6 [facility] DEPARTMEN E T VISIT HOSPITALS HIGH/URGE NT SEVERITY EMERGENCY 83569 6 6 [facility] DEPARTMEN E T VISIT HOSPITALS HIGH/URGE NT SEVERITY [facility]OSP[facility] - 6 6 [facility] OUTPATIEN [facility] T HOSPITALS EMERGENCY 90882 [facility] 6 6 [place] DEPARTMEN PHYSICIAN T VISIT S ASSIST LOW/MODER SEVERITY HOSPITAL [facility] 6 6 N OUTPATIEN COMMUNTIY T HOSPITA EMERGENCY 64416 [facility] 6 6 JEFFY DEPARTMEN EMERGENCY T VISIT PHYS HIGH/URGE NT SEVERITY EMERGENCY 56178 GRACIE CHAU 6 6 MEDICAL DEPARTMEN SERV T VISIT FOUNDATIO LOW/MODER N SEVERITY EMERGENCY 86128 6 6 [facility] DEPARTMEN E T VISIT HOSPITALS LOW/MODER SEVERITY [facility] - 6 6 [facility] OUTPATIEN E T HOSPITALS OFFICE 80255 [facility]ENNIFER MALU Y[facility] OUTPATIEN 6 6 PHYSICIAN T NEW 30 PRACTICE MINUTES L EMERGENCY 59444 GRACIE RUELAS CARL 6 6 MEDICAL DEPARTMEN SERV T VISIT FOUNDATIO MODERATE N SEVERITY EMERGENCY 83664 6 6 [facility] DEPARTMEN E T VISIT HOSPITALS LOW/MODER SEVERITY [facility] - 6 6 [facility] OUTPATIEN E T HOSPITALS EMERGENCY 09823 RAMÓN 6 6 [facility] DEPARTMEN INC T VISIT LIMITED/M INOR PROB HOSPITAL RAMÓN - 6 6 [facility] OUTPATIEN INC T EMERGENCY 02794 [facility] CALDERON 6 6 PHYSICIAN DEPARTMEN S, [facility] VISIT MODERATE SEVERITY EMERGENCY 99260 [facility] 6 6 JEFFY CARTAGENA DEPARTMEN EMERGENCY T VISIT PHYS MODERATE SEVERITY EMERGENCY 18472 RAMÓN 6 6 [facility] DEPARTMEN INC T VISIT LIMITED/M INOR PROB EMERGENCY 48547 [facility] HOLLIDAY 6 6 PHYSICIAN Priya GONCALVES DEPARTMEN S, PLLC T VISIT MODERATE SEVERITY HOSPITAL RAMÓN - 6 6 [facility] OUTPATIEN INC T EMERGENCY 98270 [facility] 6 6 JEFFY GASCA DEPARTMEN EMERGENCY T VISIT PHYS HIGH/URGE NT SEVERITY EMERGENCY 69711 [facility]ÓN 6 6 [facility] DEPARTMEN INC T VISIT LIMITED/M INOR PROB EMERGENCY 91538 [facility] VALENTINE 6 6 PHYSICIAN KENYATTA DEPARTMEN S, PLLC T VISIT MODERATE SEVERITY HOSPITAL RAMÓN - 6 6 [facility] OUTPATIEN INC T EMERGENCY 89984 [facility] 6 6 JEFFY IVANNA DEPARTMEN EMERGENCY T VISIT PHYS MODERATE SEVERITY HOSPITAL RAMÓN - 6 6 [facility] OUT[facility] INC T OFFICE 29474 [facility] 6 6 SHEBA DYSON T VISIT ADULT & 25 PED MINUTES [facility]N - 6 6 [facility] RAM[facility]N - 6 6 [facility] INC T EMERGENCY 83482 CUAUHTEMOC OCHOA 6 6 PHYSICIAN CONCHIS DEPARTMEN S, PLLC T VISIT HIGH/URGE NT SEVERITY HOSPITAL RAM[facility]N - 6 6 [facility] OUTPATIEN INC T OFFICE 09192 [facility] OUTPATIEN 6 6 SHEBA KIEL T VISIT ADULT & 25 PED MINUTES OFFICE 34789 [facility] CONSULTAT 6 6 SHEBA KIEL ION ADULT & NEW/ESTAB PED PATIENT 60 MIN EMERGENCY 76985 [facility] 6 6 JEFFY PAT DEPARTMEN EMERGENCY T VISIT PHYS MODERATE SEVERITY EMERGENCY 88015 [facility] ARNOLD 6 6 JEFFY OSIEL DEPARTMEN EMERGENCY T VISIT PHYS MODERATE SEVERITY EMERGENCY 01547 [facility] 6 6 JEFFY DEPARTMEN EMERGENCY T VISIT PHYS MODERATE SEVERITY EMERGENCY 26101 RAMÓN 6 6 [facility] DEPARTMEN INC T VISIT LOW/MODER SEVERITY EMERGENCY 09209 CU[facility]HTEMOC VALENTINE 6 6 PHYSICIAN KENYATTA ESTESMEN S, PLLC T VISIT MODERATE SEVERITY HOSPITAL RAM[facility]N - 6 6 [facility] OUTPATIEN INC T EMERGENCY 66836 CU[facility]HTEMOC MAJOR 6 6 PHYSICIAN DEPARTMEN S, PLLC T VISIT MODERATE SEVERITY HOSPITAL RAMÓN - 6 6 [facility] OUTPATIEN INC T EMERGENCY 99515 RAMÓN 6 6 [facility] DEPARTMEN INC T VISIT LOW/MODER SEVERITY OFFICE 96836 RAMÓN OUTPATIEN 6 6 [facility] T VISIT INC 10 MINUTES OFFICE 47973 EULA [facility] OUTPATIEN 6 6 MD LUCI, T NEW 45 PSC MINUTES HOSPITAL RAMÓN - 6 6 [facility]PATIEN INC T EMERGENCY 97175 RAMÓN 6 6 [facility] DEPARTMEN INC T VISIT LOW/MODER SEVERITY EMERGENCY 22438 CUAUHTEMOC OCHOA 6 6 PHYSICIAN CONCHIS DEPARTMEN S, [facility]IS[facility] MOD[facility]ATE SEVERITY HOSPITAL RAMÓN - 6 6 [facility] OUTPATIEN [facility] HOSPITAL RAMÓN - 5 5 [facility] OUTPATIEN [facility] T EMERGENCY 24873 CUAUHTEMOC OCHOA 5 5 PHYSICIAN DEPARTMEN S, [facility] T VISIT MODERATE SEVERITY EMERGENCY 84894 RAMÓN 5 5 [facility] DEPARTMEN INC T VISIT LOW/MODER SEVERITY EMERGENCY 30539 [facility] CHUCHO 5 5 JEFFY [facility] EMERGENCY T VISIT PHYS HIGH/URGE NT SEVERITY EMERGENCY 05642 GRACIE ISAAC 5 5 MEDICAL ALEX DEPARTMEN SERV T VISIT FOUNDATIO MODERATE N [facility] HOSPITAL UNIVERSIT - 5 5 Y [facility] T EMERGENCY 80380 CUAUHTEMOC OCHOA DEPT 5 5 PHYSICIAN VISIT S, PLLC HIGH SEVERITY& THREAT [facility] RAMÓN - 5 5 [facility]PAT[facility]EN INC T EMERGENCY 03208 [facility] NORIS 5 5 JEFFY ELO DEPARTMEN EMERGENCY T VISIT PHYS MODERATE SEVERITY EMERGENCY 22760 [facility] CELLAROSI 5 5 JEFFY - [facility] PAT T VISIT PHYS MODERATE SEVERITY HOSPITAL CARLY - 5 5 N OUTPATIEN COMMUNTIY T [facility] RAMÓN - 5 5 [facility]PAT[facility]EN INC T HOSPITAL RAMÓN - 5 5 [facility] OUTPATIEN INC T EMERGENCY 01046 [facility] 5 5 JEFFY [facility]LO [facility] T VISIT PHYS MODERATE SEVERITY EMERGENCY 81555 ARMÓN OCHOA 5 5 [facility] T VISIT P LOW/MODER SEVERITY EMERGENCY 55163 [facility] 4 4 JEFFY [facility] T VISIT PHYS MODERATE SEVERITY OFFICE 95720 VU SAL[facility]ED[facility] 4 4 KENYATTA KENYATTA T VISIT 25 MINUTES EMERGENCY 88725 [facility] 4 4 JEFFY PAT [facility] EMERGENCY T VISIT PHYS MODERATE SEVERITY EMERGENCY 37160 RAMÓN 4 4 [facility] INC T VISIT LOW/MODER SEVERITY EMERGENCY 62809 DON OCHOA 4 4 [facility]ATE SEVERITY HOSPITAL RAMÓN - 4 4 [facility]EN INC T EMERGENCY 76380 KANDI MILES 4 4 DEPARTMEN T VISIT MODERATE SEVERITY EMERGENCY 76731 KANDI MILES 4 4 DEPARTMEN T VISIT MODERATE SEVERITY EMERGENCY 98060 CELLAROSI CELLAROSI 4 4 - YORBA - YORBA [facility] PAT PAT T VISIT HIGH/URGE NT SEVERITY EMERGENCY 45834 ALFARIS ALFARIS 4 4 [facility] DEPARTMEN T VISIT HIGH/URGE NT SEVERITY EMERGENCY 60062 DON OCHOA 4 4 [facility] DEPARTMEN T VISIT MODERATE SEVERITY HOSPITAL RAMÓN - 3 3 [facility]PAT[facility]EN INC T EMERGENCY 27580 CHUY II CHUY II 3 3 THO THO DEPARTMEN T VISIT MODERATE SEVERITY EMERGENCY 94935 SOKAN BAB SOKAN BAB 3 3 DEPARTMEN T VISIT MODERATE SEVERITY EMERGENCY 77368 ALFARIS ALFARIS 3 3 [facility] DEPARTMEN T VISIT MODERATE SEVERITY EMERGENCY 79025 RECHTIN RECHTIN 3 3 CRYPTOLOGIST CRYPTOLOGIST DEPARTMEN T VISIT MODERATE SEVERITY EMERGENCY 66732 KANDI MILES 3 3 DEPARTMEN T VISIT MODERATE SEVERITY EMERGENCY 59434 SOKAN BAB SOKAN BAB 3 3 DEPARTMEN T VISIT MODERATE SEVERITY EMERGENCY 09250 YARIEL MILES 3 3 EMERGENCY DEPARTMEN SERVICES T VISIT HIGH/URGE NT SEVERITY EMERGENCY 90210 STACK HEIDI STACK HEIDI 3 3 DEPARTMEN T VISIT HIGH/URGE NT SEVERITY EMERGENCY 50035 YARIEL WHITAKER 3 3 EMERGENCY DEPARTMEN SERVICES T VISIT MODERATE SEVERITY EMERGENCY 46329 YARIEL BARROSO DEPT 3 3 EMERGENCY JAM VISIT SERVICES HIGH SEVERITY& THREAT FUNCJ EMERGENCY 65216 CAREY PATINO 3 3 SET SET DEPARTMEN T VISIT HIGH/URGE NT SEVERITY EMERGENCY 89066 CHUY II CHUY II 3 3 THO THO DEPARTMEN T VISIT MODERATE SEVERITY EMERGENCY 88170 RAMÓN 3 3 [facility] DEPARTMEN INC T VISIT LIMITED/M INOR [facility] HOSPITAL RAMÓN - 3 3 [facility] OUTPATIEN INC T EMERGENCY 66543 DON OCHOA 3 3 CONCHIS CONCHIS DEPARTMEN T VISIT HIGH/URGE NT SEVERITY EMERGENCY 48224 YARIEL COTE DEPT 3 3 EMERGENCY III KENYON VISIT SERVICES HIGH SEVERITY& THREAT FUNCJ EMERGENCY 47482 ABNER LEVINE MAT 2 2 DEPARTMEN T VISIT MODERATE SEVERITY EMERGENCY 33705 YARIEL GUSTAFSON 2 2 EMERGENCY ADT JONATHAN DEPARTMEN SERVICES T VISIT MODERATE SEVERITY OFFICE 22253 KATT BOLIVAR KENYATTA CONSULTAT 2 2 ION NEW/ESTAB PATIENT 60 MIN EMERGENCY 09408 FOX LISA FOX LISA 2 2 DEPARTMEN T VISIT MODERATE SEVERITY OFFICE 63546 MIGDALIA NEGRON OUTPATIEN 2 2 CLEMENTINE CLEMENTINE T VISIT 15 MINUTES EMERGENCY 53928 PUND CHR PUND CHR 2 2 DEPARTMEN T VISIT MODERATE SEVERITY EMERGENCY 08232 CHUY II CHUY II 2 2 THO THO DEPARTMEN T VISIT MODERATE SEVERITY EMERGENCY 24726 OSWALDO CHACON 2 2 JULIO JULIO DEPARTMEN T VISIT MODERATE SEVERITY HOSPITAL RAMÓN - 2 2 [facility] INC T EMERGENCY 09132 RAMÓN 2 2 [facility] DEPARTMEN INC T VISIT LOW/MODER SEVERITY EMERGENCY 26525 DON OCHOA 2 2 CONCHIS CONCHIS DEPARTMEN T VISIT MODERATE SEVERITY EMERGENCY 54781 CHUY II CHUY II 2 2 THO THO DEPARTMEN T VISIT HIGH/URGE NT SEVERITY OFFICE 55222 OZ [place] JR OUTPATIEN 2 2 KENYON KENYON T NEW 30 MINUTES OFFICE 10115 MIGDALIA NEGRON OUTPATIEN 2 2 CLEMENTINE CLEMENTINE T VISIT 15 MINUTES EMERGENCY 53551 ROCAEL COTE DEPT 2 2 III KENYON III KENYON VISIT HIGH SEVERITY& THREAT [facility] RAMÓN - 2 2 [facility] OUTPATIEN INC T EMERGENCY 29877 RAMÓN 2 2 [facility] DEPARTMEN INC T VISIT MODERATE SEVERITY EMERGENCY 88480 DEJUAN ZAIDI 2 2 GAR GAR DEPARTMEN T VISIT MODERATE SEVERITY OFFICE 80053 NAVARRO PAD NAVARRO PAD OUTPATIEN 2 2 T VISIT 15 MINUTES EMERGENCY 42778 CHUY T CHUY T 2 2 DEPARTMEN T VISIT MODERATE SEVERITY EMERGENCY 36463 RECHTIN RECHTIN 2 2 CRYPTOLOGIST CRYPTOLOGIST DEPARTMEN T VISIT HIGH/URGE NT SEVERITY OFFICE 16518 LI LI OUTPATIEN 2 2 KIEL KIEL T VISIT 15 MINUTES EMERGENCY 16401 CELLAROSI CELLAROSI 2 2 - YORBA - YORBA DEPARTMEN PAT PAT T VISIT HIGH/URGE NT SEVERITY OFFICE 10019 NAVARRO PAD NAVARRO PAD OUTPATIEN 2 2 T VISIT 15 MINUTES EMERGENCY 19047 YARIEL STEPHENSON MARIO 2 2 EMERGENCY DEPARTMEN SERVICES T VISIT HIGH/URGE NT SEVERITY OFFICE 86215 MARY ODESSA MARY ODESSA OUTPATIEN 2 2 T VISIT 15 MINUTES EMERGENCY 84926 CHUY T CHUY T 2 2 DEPARTMEN T VISIT MODERATE SEVERITY OFFICE 11550 LI LI OUTPATIEN 2 2 KIEL KIEL T VISIT 15 MINUTES EMERGENCY 59080 DOWNS PAT DOWNS PAT 2 2 DEPARTMEN T VISIT HIGH/URGE NT SEVERITY EMERGENCY 85455 [place] 2 2 [facility] T VISIT MODERATE SEVERITY HOSPITAL [place] - 2 2 [facility] T EMERGENCY 21136 GRACIE HUERTASMARITA 2 2 MEDICAL TEREZA DEPARTMEN SERV T VISIT FOUNDATIO MODERATE SEVERITY EMERGENCY 97174 YARIEL ARANDA 2 2 EMERGENCY PAT DEPARTMEN SERVICES T VISIT MODERATE SEVERITY OFFICE 25427 LI LI CONSULTAT 2 2 KIEL KIEL ION NEW/ESTAB PATIENT 40 MIN OFFICE 16636 MOIRA MOIRA OUTPATIEN 2 2 MITZI MITZI T NEW 20 MINUTES OFFICE 77525 POWELL POWELL OUTPATIEN 2 2 OSBALDO OSBALDO T VISIT 15 MINUTES HOSPITAL RAMÓN - 2 2 [facility] OUTPATIEN INC T EMERGENCY 67321 RAMÓN 2 2 [facility] DEPARTMEN INC T VISIT LOW/MODER SEVERITY EMERGENCY 75791 YARIEL OCHOA 2 2 EMERGENCY CONCHIS DEPARTMEN SERVICES T VISIT HIGH/URGE NT SEVERITY EMERGENCY 96074 CHUY T CHUY T 2 2 DEPARTMEN T VISIT MODERATE SEVERITY [facility]OSPITAL [place] - 2 2 [facility] T OFFICE 21222 [facility] OUTPATIEN 2 2 OSBALDO OSBALDO T VISIT 15 MINUTES EMERGENCY 32564 GRACIE ROMAN 2 2 MEDICAL [facility] DEPARTMEN SERV T VISIT FOUNDATIO HIGH/URGE NT SEVERITY OFFICE 95364 AICHA CARTAGENA OUTPATIEN 2 2 T VISIT 15 MINUTES OFFICE 58782 MARY ODESSA MARY ODESSA OUTPATIEN 2 2 T NEW 20 MINUTES OFFICE 87537 ADRIANAMOHSEN NEGRON OUTPATIEN 2 2 CLEMENTINE CLEMENTINE T VISIT 15 MINUTES EMERGENCY 11112 OSWALDO CHACON 2 2 JULIO JULIO DEPARTMEN T VISIT MODERATE SEVERITY EMERGENCY 27307 YARIEL OCHOA 2 2 EMERGENCY CONCHIS DEPARTMEN SERVICES T VISIT HIGH/URGE NT SEVERITY EMERGENCY 21352 RAMÓN 2 2 [facility] DEPARTMEN INC T VISIT LOW/MODER SEVERITY HOSPITAL ARMÓN - 2 2 [facility] OUTPATIEN INC T EMERGENCY 91054 YARIEL TIDWELL 2 2 EMERGENCY CAR DEPARTMEN SERVICES T VISIT LIMITED/M INOR PROB EMERGENCY 48148 VERONICA MARTIN 2 2 [facility] DEPARTMEN T VISIT HIGH/URGE NT SEVERITY HOSPITAL [facility] - 2 2 N OUTPATIEN COMMUNTIY T HOSPITA OFFICE 27725 NAVARRO PAD NAVARRO PAD OUTPATIEN 2 2 T VISIT 15 MINUTES EMERGENCY 69071 RAMÓN 2 2 [facility] T VISIT LOW/MODER SEVERITY HOSPITAL RAMÓN - 2 2 [facility] T EMERGENCY 73251 YARIEL OCHOA 2 2 EMERGENCY CONCHIS DEPARTMEN SERVICES T VISIT HIGH/URGE NT SEVERITY EMERGENCY 43435 DEJUAN ZAIDI 2 2 GAR GAR DEPARTMEN T VISIT MODERATE SEVERITY EMERGENCY 83130 YARIEL TIDWELL 2 2 EMERGENCY CAR [facility] SERVICES T VISIT MODERATE SEVERITY OFFICE 83011 TOBIAS COLLADO [facility] 1 SHARI SHARI T VISIT 15 MINUTES EMERGENCY 94853 OSWALDO CHACON 1 1 JULIO JULIO [facility] T VISIT MODERATE SEVERITY HOSPITAL UNIVERSIT - [address] [place] [address] T EMERGENCY 13787 UNIVERSIT [address] [place] [address] T VISIT MODERATE SEVERITY [facility] 1 [facility] T EMERGENCY 44546 [facility] 1 [facility] T VISIT MODERATE SEVERITY OFFICE 11582 NAVARRO PAD NAVARRO PAD OUTPATIEN 1 1 T NEW 20 MINUTES EMERGENCY 15812 OSWALDO CHACON 1 1 JULIO JULIO DEPARTMEN T VISIT HIGH/URGE NT SEVERITY EMERGENCY 49641 DON OCHOA 1 1 CONCHIS [facility] DEPARTMEN T VISIT HIGH/URGE NT SEVERITY EMERGENCY 99569 RAMÓN 1 1 [facility] INC T VISIT LOW/MODER SEVERITY HOSPITAL RAMÓN - 1 1 [facility] T OFFICE 26423 ESCALANTE JULIO ESCALANTE JULIO OUTPATIEN 1 1 T VISIT 15 MINUTES EMERGENCY 04949 ACS TEODORO 1 1 [facility]IMARY FRITZ DEPARTMEN CARE T VISIT PHYSICANS MODERATE M SEVERITY EMERGENCY 64149 YARIEL CELLAROSI 1 1 EMERGENCY - YORBA DEPARTMEN SERVICES PAT T VISIT MODERATE SEVERITY HOSPITAL UNIVERSIT - 1 1 Y OUTPATIEN HOSPITAL T EMERGENCY 21060 UNIVERSIT 1 1 Y [facility] HOSPITAL T VISIT MODERATE SEVERITY OFFICE 90378 ESCALANTE JULIO ESCALANTE JULIO OUTPATIEN 1 1 T VISIT 15 MINUTES HOSPITAL UNIVERSIT - 1 1 Y [facility] T EMERGENCY 02827 UNIVERSIT 1 1 Y [facility] HOSPITAL T VISIT MODERATE SEVERITY EMERGENCY 48975 ACS MERCHANT 1 1 [facility] DEPARTMEN CARE T VISIT PHYSICANS HIGH/URGE M NT SEVERITY OFFICE 38067 VENGUSWAM VENGUSWAM OUTPATIEN 1 1 Y CATARINA Y CATARINA T VISIT 15 MINUTES OFFICE 62107 ESCALANTE JULIO ESCALANTE JULIO OUTPATIEN 1 1 T NEW 30 MINUTES EMERGENCY 75733 GRACIE LOPEZ 1 1 MEDICAL DEPARTMEN SERV T VISIT FOUNDATIO MODERATE SEVERITY HOSPITAL UNIVERSIT - 1 1 Y [facility] T EMERGENCY 12372 UNIVERSIT 1 1 Y [facility] HOSPITAL T VISIT LOW/MODER SEVERITY EMERGENCY 43281 GRACIE MONIQUE 1 1 MEDICAL SON DEPARTMEN SERV T VISIT FOUNDATIO MODERATE SEVERITY EMERGENCY 42584 YARIEL FERNANDEZ 1 1 EMERGENCY THERESA DEPARTMEN SERVICES T VISIT HIGH/URGE NT SEVERITY HOSPITAL UNIVERSIT - 1 1 Y [facility] HOSPITAL T EMERGENCY 38913 GRACIE WHARTON JR 1 1 MEDICAL KEN[place]ON DEPARTMEN SERV T VISIT FOUNDATIO MODERATE SEVERITY EMERGENCY 69280 UNIVERSIT 1 1 Y [facility] HOSPITAL T VISIT LOW/MODER SEVERITY EMERGENCY 56302 YARIEL GONZALEZ 1 1 EMERGENCY DEPARTMEN SERVICES T VISIT HIGH/URGE NT SEVERITY EMERGENCY 72570 RAMÓN 1 1 [facility] DEPARTMEN INC T VISIT LOW/MODER SEVERITY HOSPITAL RAMÓN - 1 1 [facility]EN INC T EMERGENCY 35125 [facility] 1 1 JEFFY DEPARTMEN EMERGENCY T VISIT PHYS MODERATE SEVERITY EMERGENCY 10221 YARIEL SHEETS 1 1 EMERGENCY [facility] DEPARTMEN SERVICES T VISIT MODERATE SEVERITY HOSPITAL RAMÓN - 1 1 [facility] T EMERGENCY 42882 YARILE OCHOA 1 1 EMERGENCY [facility] DEPARTMEN SERVICES T VISIT HIGH/URGE NT SEVERITY EMERGENCY 80342 RAMÓN 1 1 [facility] T VISIT LIMITED/M INOR PROB EMERGENCY 64466 YARIEL DOWNING 1 1 EMERGENCY - YOA [facility] SERVICES PAT T VISIT HIGH/URGE NT SEVERITY HOSPITAL [facility] - 1 1 N OUTPATIEN COMMUNITY T HOSPITA EMERGENCY 65814 [facility] 1 1 N DEPARTMEN COMMUNITY T VISIT HOSPITA LOW/MODER SEVERITY HOSPITAL UNIVERSIT - 1 1 Y [facility] HOSPITAL T EMERGENCY 20377 GRACIE MARC 1 1 MEDICAL MITZI DEPARTMEN SERV T VISIT FOUNDATIO MODERATE SEVERITY EMERGENCY [address] DEPARTMEN T VISIT LOW/MODER SEVERITY EMERGENCY 07800 [facility] 1 1 JEFFY DEPARTMEN EMERGENCY T VISIT PHYS MODERATE SEVERITY [facility] [place] [address] 1 HOSPITAL OUTPATIEN T EMERGENCY 48269 YARIEL GALO 1 1 EMERGENCY CHAU DEPARTMEN SERVICES T VISIT MODERATE SEVERITY EMERGENCY 97383 [facility] 1 1 N [facility] COMMUNITY T VISIT [facility] MODERATE SEVERITY EMERGENCY 43778 YARIEL ZAIDI DEPT 1 1 EMERGENCY GAR VISIT SERVICES HIGH SEVERITY& THREAT [facility] - 1 N [facility] HOSPITA OFFICE 09365 VENGUSWAM VENGUSWAM OUTPATIEN 1 1 Y CATARINA Y CATARINA T VISIT 25 MINUTES OFFICE 09564 VENGUSWAM VENGUSWAM OUTPATIEN 1 1 Y CATARINA Y CATARINA T NEW 30 MINUTES OFFICE 65372 [facility] KENRICKE OUTPATIEN 1 1 N URGENT ABD T VISIT CARE 15 MINUTES EMERGENCY 74642 YARIEL GALO 1 1 EMERGENCY [facility] SERVICES T VISIT HIGH/URGE NT SEVERITY OFFICE 31941 [facility] KENRICKE OUTPATIEN 1 1 N URGENT ABD T VISIT CARE 15 MINUTES HOSPITAL [facility] 1 [facility] HOSP[facility] OFFICE 35120 [facility] KENRICKE OUTPATIEN 1 1 N URGENT ABD T VISIT CARE 15 MINUTES OFFICE 50421 [facility] RABIEE OUTPATIEN 1 1 N URGENT ABD T VISIT CARE 15 MINUTES EMERGENCY 04534 YRAIEL GONZALEZ 1 1 EMERGENCY DEPARTMEN SERVICES T VISIT HIGH/URGE NT SEVERITY EMERGENCY 21952 RAMÓN 1 1 [facility] LOW/MODER SEVERITY HOSPITAL RAMÓN - 1 1 [facility] T EMERGENCY 54104 YARIEL GALO 1 1 [facility] T VISIT MODERATE SEVERITY OFFICE 27446 GRACIE Ding OUTPATIEN 1 1 MEDICAL T VISIT SERV 10 FOUNDATIO MINUTES OFFICE 04324 [facility] DANNIELLE OUTPATIEN 1 1 N URGENT ABD T VISIT CARE 15 MINUTES OFFICE 63389 [facility] DANNIELLE OUTPATIEN 1 1 N URGENT ABD T VISIT CARE 15 MINUTES OFFICE 61994 [facility] KENRICKE OUTPATIEN 0 0 N URGENT ABD T VISIT CARE 15 MINUTES OFFICE 91487 [facility] KENRICKE OUTPATIEN 0 0 N URGENT ABD T VISIT CARE 15 MINUTES OFFICE 89023 [facility] CONSULTAT 0 0 ANNITA GALINDO CARDIOLOG NEW/ESTAB Y CLINIC PATIENT 30 MIN EMERGENCY 17124 YARIEL GALO 0 0 EMERGENCY [facility] SERVICES T VISIT MODERATE SEVERITY HOSPITAL [facility] - 0 0 N [facility] HOSP[facility] OFFICE 62013 [facility] DANNIELLE OUTPATIEN 0 0 N URGENT ABD T VISIT CARE 15 MINUTES HOSPITAL [facility] 0 0 N [facility] 0 [facility] 99164 [facility] DANNIELLE OUTPATIEN 0 0 N URGENT ABD T VISIT CARE 15 MINUTES HOSPITAL RAMÓN - 0 0 [facility] OUTPATIEN INC T EMERGENCY 87546 YARIEL COTE 0 0 [facility] T VISIT HIGH/URGE NT SEVERITY EMERGENCY 28136 RAMÓN 0 0 MEM HOS[facility] DEPARTMEN INC T VISIT LOW/MODER SEVERITY OFFICE 81676 [facility] G[facility] OUTPATIEN 0 0 [place] T VISIT ORTHOPAED 15 [facility] MINUTES OFFICE 58848 GARCÍA TRA GARCÍA TRA OUTPATIEN 0 0 T VISIT 10 MINUTES OFFICE 19800 CARLY CHOUDHARYE OUTPATIEN 0 0 N URGENT ABD T NEW 30 CARE MINUTES OFFICE 96244 [facility]ENTRAL GARCÍ[facility] TRA OUTPATIEN 0 0 [place] T VISIT ORTHOPAED 15 [facility] MINUTES [facility] - 0 0 N OUTPATIEN COMMUNITY T HOSPITA EMERGENCY 77314 [facility] 0 0 N DEPARTMEN COMMUNITY T VISIT HOSPITA MODERATE SEVERITY EMERGENCY 50957 YARIEL CHUY T 0 0 EMERGENCY DEPARTMEN SERVICES T VISIT MODERATE SEVERITY EMERGENCY 69231 YARIEL ROBERTO DEPT 0 0 EMERGENCY DON VISIT SERVICES HIGH SEVERITY& THREAT FUNCJ EMERGENCY 65901 RAMÓN 0 0 MEM HOS[facility] DEPARTMEN INC T VISIT LOW/MODER SEVERITY EMERGENCY 10703 YARIEL OCHOA, 0 0 EMERGENCY DANIELA S DEPARTMEN SERVICES T VISIT HIGH/URGE ASSOCIATE NT S SEVERITY HOSPITAL RAMÓN - 0 0 [facility] OUTPATIEN INC T EMERGENCY 50584 [place] MOHAN 0 0 MEDICAL GAIL DEPARTMEN SERV T VISIT FOUNDATIO MODERATE SEVERITY HOSPITAL [facility] - 0 0 Y OUTPATIEN [facility]PITAL T EMERGENCY 66593 UN[facility]ERS[facility] 0 0 Y DEPARTMEN HOSPITAL T VISIT LOW/MODER SEVERITY HOSPITAL RAMÓN - 0 0 [facility] OUTPATIEN INC T EMERGENCY 04246 YARIEL OCHOA DEPT 0 0 EMERGENCY DANIELA S VISIT SERVICES HIGH SEVERITY& ASSOCIATE THREAT S FUNCJ EMERGENCY 00885 RAMÓN 0 0 [facility] DEPARTMEN INC T VISIT LOW/MODER SEVERITY EMERGENCY 91845 RAMÓN 0 0 [facility] DEPARTMEN INC T VISIT LOW/MODER SEVERITY HOSPITAL RAMÓN - 0 0 [facility] OUTPATIEN INC T EMERGENCY 13915 YARIEL GIL 0 0 EMERGENCY [facility] DEPARTMEN SERVICES T VISIT MODERATE SEVERITY HOSPITAL RAMÓN - 0 0 [facility] OUTPATIEN INC T EMERGENCY 98006 [facility]/M INOR PROB EMERGENCY 17699 YARIEL OCHOA, 0 0 EMERGENCY [facility] DEPARTMEN SERVICES T VISIT HIGH/URGE ASSOCIATE NT S SEVERITY EMERGENCY 73442 [place] 0 0 [facility] T VISIT MODERATE SEVERITY EMERGENCY 22470 YARIEL WATT 0 0 EMERGENCY DEPARTMEN SERVICES T VISIT HIGH/URGE NT SEVERITY HOSPITAL [place] - 0 0 [facility] T EMERGENCY 42840 YARIEL CHARLES, 0 0 EMERGENCY ANGELY J DEPARTMEN SERVICES T VISIT MODERATE ASSOCIATE SEVERITY S EMERGENCY 07272 YARIEL BARROSO, 0 0 EMERGENCY [facility] SERVICES T VISIT HIGH/URGE ASSOCIATE NT S SEVERITY HOSPITAL [place] - 0 0 [facility] T EMERGENC[facility] 72867 [facility], 0 0 JEFFY SMITH DEPARTMEN EMERGENCY A T VISIT PHYS INC MODERATE SEVERITY [facility] 33624 [facility] JEFFY Mills DEPARTMEN EMERGENCY T VISIT PHYS INC MODERATE SEVERITY OFFICE 09038 [facility] BOY Quinn T NEW 30 MINUTES EMERGENCY 62867 [facility] SUDEEP, 0 0 JEFFY Mills DEPARTMEN EMERGENCY T VISIT PHYS INC MODERATE SEVERITY EMERGENCY 71514 [facility] PADMA, 0 0 JEFFY Quinn DEPARTMEN EMERGENCY T VISIT SERV PC HIGH/URGE NT SEVERITY HOSPITAL [facility] 0 0 HOSPITAL OUTPATIEN T EMERGENCY 84761 [facility] 0 0 HOSPITAL DEPARTMEN T VISIT MODERATE SEVERITY [facility]OSPITAL [place] - 0 0 [facility] T EMERGENCY 86203 [place] 0 0 [facility] T VISIT MODERATE SEVERITY EMERGENCY 12294 [facility] TROY, 0 0 JEFFY HUERTA DO, DEPARTMEN EMERGENCY NAREN O T VISIT PHYS INC MODERATE SEVERITY EMERGENCY 27522 [facility] 0 0 JEFFY , [place] DEPARTMEN EMERGENCY M T VISIT PHYS INC MODERATE SEVERITY EMERGENCY 20229 [facility] TR[place], 0 0 JEFFY HUERTA DO, DEPARTMEN EMERGENCY NAREN O T VISIT PHYS INC MODERATE SEVERITY HOSPITAL [place] - 0 0 [facility] T EMERGENCY 31713 UNIV[facility] 0 0 Y [facility] H[facility]PITAL T VISIT LIMITED/M INOR PROB EMERGENCY 49359 [place] SPOONER, 0 0 MEDICAL YOSELIN C DEPARTMEN SERV T VISIT FOUNDATIO LOW/MODER SEVERITY HOSPITAL [facility] - 0 0 Y [facility] T EMERGENCY 37327 YARIEL BARROSO, 0 0 EMERGENCY [facility] T VISIT MODERATE ASSOCIATE SEVERITY S EMERGENCY 29588 [facility] CHUY, T 0 0 JEFFY DEPARTMEN EMERGENCY T VISIT PHYS INC MODERATE SEVERITY EMERGENCY 65433 [facility] CHUY, T 0 0 JEFFY DEPARTMEN EMERGENCY T VISIT PHYS INC MODERATE SEVERITY EMERGENCY 09674 [facility] CELLAROSI 0 0 JEFFY - YORBA, [facility] EMERGENCY [place] T VISIT PHYS INC M MODERATE SEVERITY HOSPITAL [facility] - 0 0 [facility] T EMERGENCY 89094 UN[facility] 0 0 Y [facility] HOSPITAL T VISIT MODERATE SEVERITY EMERGENCY 30998 [facility] JEFFY MERVIN Hdz DEPARTMEN EMERGENCY T VISIT PHYS INC MODERATE SEVERITY HOSPITAL [place] - 0 0 [facility] T EMERGENCY 57205 [place] 0 0 [facility] T VISIT LOW/MODER SEVERITY EMERGENCY 44459 [place] 0 0 [facility] T VISIT LOW/MODER SEVERITY HOSPITAL [place] - 0 0 [facility] T EMERGENCY 25929 [place] RACHELLEBAR 0 0 MEDICAL I, MORELIA [facility] SERV A T VISIT FOUNDATIO MODERATE SEVERITY HOSPITAL [place] - 9 9 [facility] T EMERGENCY 83545 [place] 9 9 [facility] T VISIT LOW/MODER SEVERITY EMERGENCY 42152 [facility] CHUY T 9 9 [facility] VISIT PHYS INC MODERATE SEVERITY EMERGENCY 16184 [facility] TR[place], 9 9 JEFFY NAREN Maynard DEPARTMEN EMERGENCY T VISIT PHYS INC MODERATE SEVERITY EMERGENCY 94978 [facility] SUDEEP, 9 9 JEFFY DANIELA [facility] VISIT PHYS INC MODERATE SEVERITY HOSPITAL [facility] - 9 9 [facility] T EMERGENCY 99580 [facility] MOS[place], 9 9 JEFFY [facility]U [facility] T VISIT PHYS INC HIGH/URGE NT SEVERITY EMERGENCY 78157 [facility] 9 9 [facility] T VISIT LOW/MODER SEVERITY EMERGENCY 48805 [facility] CHUY T 9 9 JEFFY [facility] T VISIT PHYS INC MODERATE SEVERITY EMERGENCY 89005 [facility] DELANE[facility], 9 9 JEFFY SARAH [facility] EMERGENCY A T VISIT PHYS INC MODERATE SEVERITY [facility] [place] - 9 9 [facility] 9 [facility] T EMERGENCY 76207 [place] 9 9 [facility] T VISIT LOW/MODER SEVERITY EMERGENCY 96388 [facility], 9 9 JEFFY SARAH [facility] A T VISIT PHYS INC MODERATE SEVERITY OFFICE 03440 SHANISTDEA [facility]TRAN [facility] 9 9 , QUITA DEVLIN NEW/ESTAB PATIENT 40 MIN EMERGENCY 95039 [facility] 9 9 HOSPITAL DEPARTMEN T VISIT LOW/MODER SEVERITY EMERGENCY 27036 [facility] 9 9 JEFFY , [facility] [place] [place] T VISIT PHYS INC MODERATE SEVERITY HOSPITAL [facility] - 9 9 [facility] [place] - 9 9 [facility] OUTPATIEN INC T EMERGENCY 14928 [place] 9 9 [facility] DEPARTMEN INC T VISIT LOW/MODER SEVERITY EMERGENCY 00489 YARIEL OCHOA, 9 9 EMERGENCY DANIELA S DEPARTMEN SERVICES T VISIT MODERATE ASSOCIATE SEVERITY S EMERGENCY 61259 [facility], 9 9 JEFFY IDA DEPARTMEN EMERGENCY T VISIT PHYS INC MODERATE SEVERITY EM[facility]GENCY 41903 [facility] JEFFY Mills DEPARTMEN EMERGENCY T VISIT PHYS INC MODERATE SEVERITY EMERGENCY 50252 [place] 9 9 [facility] DEPARTMEN INC T VISIT LOW/MODER SEVERITY [facility] [place] - 9 9 [facility] OUTPATIEN INC T EMERGENCY 90974 YARIEL OCHOA, 9 9 EMERGENCY DANIELA S DEPARTMEN SERVICES T VISIT MODERATE ASSOCIATE SEVERITY S EMERGENCY 18690 [facility] 9 9 HOSPITAL DEPARTMEN T VISIT LOW/MODER SEVERITY HOSPITAL [facility] 9 9 [facility] 26637 [facility], 9 9 JEFFY Kai Martinez DEPARTMEN EMERGENCY T VISIT PHYS INC MODERATE SEVERITY EMERGENCY 57088 [facility], 9 9 JEFFY DORIS Lydia [facility] EM[facility] T VISIT PHYS INC MODERATE SEVERITY EMERGENCY 49385 [facility] 9 9 HOSPITAL DEPARTMEN T VISIT LOW/MODER SEVERITY HOSPITAL [facility] - 9 9 [facility] T EMERGENCY 22572 [facility], 9 9 JEFFY SARAH [facility] EMERGENCY A T VISIT PHYS INC MODERATE SEVERITY EMERGENCY 56812 YARIEL OCHOA, 9 9 EMERGENCY [facility] SERVICES T VISIT MODERATE ASSOCIATE SEVERITY S HOSPITAL RAMÓN - 9 9 [facility] OUTPATIEN INC T EMERGENCY 10484 [place] 9 9 [facility] T VISIT LOW/MODER SEVERITY EMERGENCY 63990 [place] 9 9 [facility] T VISIT MODERATE SEVERITY [facility]ITAL [facility] - 9 9 [facility] T EMERGENCY 63127 [place] 9 9 [facility] DEPARTMEN INC T VISIT LOW/MODER SEVERITY [facility]PITAL [place] - 9 9 [facility] T EMERGENCY 28375 YARIEL OCOHA, 9 9 EMERGENCY [facility] SERVICES T VISIT HIGH/URGE ASSOCIATE NT S SEVERITY EMERGENCY 96172 JOESPH VERA T 9 9 [facility] EMERGENCY T VISIT PHYS INC MODERATE SEVERITY OFFICE 25470 RAMON NAVARRO OUTPATIEN 9 9 LYNDSAY G LYNDSAY G T VISIT 15 MINUTES EMERGENCY 04346 JOESPH VERA T 9 9 [facility] EMERGENCY T VISIT PHYS INC MODERATE SEVERITY EMERGENCY 83807 [facility] 9 [facility] T VISIT LOW/MODER SEVERITY [facility]ITAL [facility] 9 [facility] T EMERGENCY 62311 [facility], 9 9 [facility] T VISIT PHYS INC MODERATE SEVERITY EMERGENCY 47347 YARIEL OCHOA, 9 9 EMERGENCY DANIELA S [facility] SERVICES T VISIT MODERATE ASSOCIATE SEVERITY S [facility] RAMÓN - 9 9 [facility] OUTPATIEN INC T EMERGENCY 09115 RAM[facility] 9 9 [facility] VISIT LOW/MODER SEVERITY EMERGENCY 42198 [facility] 9 9 [facility] EMERGENCY T VISIT PHYS INC MODERATE SEVERITY HOSPITAL RAMÓN - 9 9 [facility]EN [facility] T EMERGENCY 34264 RAMÓN 9 9 [facility] INC T VISIT LOW/MODER SEVERITY EMERGENCY 02818 [facility] T 9 9 [facility] EMERGENCY T VISIT PHYS INC MODERATE SEVERITY EMERGENCY 14317 YARIEL MUÑOZ, DEPT 9 9 EMERGENCY [facility] VISIT SERVICES HIGH SEVERITY& ASSOCIATE THREAT S [facility] RAMÓN - 9 9 [facility]EN [facility] T EMERGENCY 83818 RAMÓN 9 9 [facility] INC T VISIT MODERATE SEVERITY EMERGENCY 28933 [facility] 9 9 [facility] T VISIT LOW/MODER SEVERITY HOSPITAL [facility] - [address] [facility] T EMERGENCY 92507 [facility] RANDY, 9 9 JEFFY Dominguez [facility] EMERGENCY T VISIT PHYS INC MODERATE SEVERITY EMERGENCY [address] [address] [facility] T VISIT LIMITED/M INOR PROB OFFICE 05072 RUBY [facility] 9 9 , QUITA DEVLIN ION NEW/ESTAB PATIENT 60 MIN EMERGENCY 47474 [facility], 9 9 JEFFY Hdz [facility] EMERGENCY T VISIT PHYS INC MODERATE SEVERITY EMERGENCY 34128 [place] 9 9 [facility] T VISIT LIMITED/M INOR PROB [facility] [place] - 9 9 [facility] T [facility] [place] [facility] 9 9 [facility] T EMERGENCY 76467 [facility] 9 [facility] T VISIT MODERATE SEVERITY EMERGENCY 28977 [facility], 9 9 JEFFY MEDRANO S [facility] EM[facility] T VISIT PHYS INC LOW/MODER SEVERITY HOSPITAL RAMÓN - 9 9 [facility] T [facility]GENC[facility] 13223 [facility] 9 [facility] T VISIT MODERATE SEVERITY HOSPITAL RAMÓN - 9 9 [facility] OUTPATIEN INC T EMERGENCY 41059 RAMÓN 9 9 [facility] INC T VISIT LIMITED/M INOR PROB EMERGENCY 97193 YARIEL RICHARDSON, 9 9 EMERGENCY [facility] T VISIT MODERATE ASSOCIATE SEVERITY [facility] 9 9 [facility] T EMERGENCY 26969 [facility] 9 9 ANNITA PARKER [facility] EMERGENCY T VISIT PHYS INC MODERATE SEVERITY EMERGENCY 47193 [facility] 9 9 [facility] T VISIT LIMITED/M INOR PROB EMERGENCY 85966 [facility] [place], 9 9 JEFFY Mills DEPARTMEN EMERGENCY T VISIT PHYS INC MODERATE SEVERITY EMERGENCY 78579 [facility] 9 9 [facility] T VISIT LIMITED/M INOR PROB EMERGENCY 23623 GRACIE SOLORIO, 9 9 MEDICAL MERVIN Martinez [facility] SERV T VISIT FOUNDATIO MODERATE SEVERITY HOSPITAL [facility] - 9 9 [facility] [place] - 9 9 [facility] T EMERGENCY 55457 [facility] 9 9 [facility] T VISIT LOW/MODER SEVERITY EMERGENCY 07572 [facility], 9 9 JEFFY Mckeon [facility] EMERGENCY T VISIT PHYS INC MODERATE SEVERITY EMERGENCY 94269 [facility], 9 9 JEFFY Hdz [facility] EMERGENCY T VISIT PHYS INC MODERATE SEVERITY EMERGENCY 55321 [facility] [place], 9 9 JEFFY WYNN Lydia [facility] EMERGENCY T VISIT PHYS INC MODERATE SEVERITY [facility] [place] - 9 9 [facility] - [address] [facility] T OFFICE 56814 RAMON [facility] 9 9 LYNDSAY G LYNDSAY G T VISIT 15 MINUTES HOSPITAL [facility] - 9 9 Y [facility] EMERGENCY 77527 [facility] 9 9 Y [facility] T VISIT HIGH/URGE NT SEVERITY EMERGENCY 58673 [facility] 8 8 JEFFY [facility] EMERGENCY T VISIT PHYS INC MODERATE SEVERITY HOSPITAL [facility] - 8 8 N [facility] OFFICE 07791 RAMON NAVARRO, CONSULTAT 8 8 LYNDSAY G LYNDSAY G ION NEW/ESTAB PATIENT 60 MIN OFFICE 57577 CARDIOLOG DINO, CONSULTAT 8 8 Y EMILIE Mckeon ION ASSOCIATE NEW/ESTAB S OF PATIENT [place] 60 MIN HOSPITAL RAMÓN - 8 8 [facility] T EMERGENC[facility] 47663 [place] 8 8 [facility] T VISIT LOW/MODER SEVERITY HOSPITAL [facility] - 8 8 N [facility] EMERGENCY 54471 [facility] CELLAROSI DEPT 8 8 JEFFY CALERO, VISIT EMERGENCY BLANCO HIGH PHYS INC M SEVERITY& THREAT FUNCJ EMERGENCY 81708 [facility] 8 8 N [facility] VISIT HOSPITAL HIGH/URGE NT SEVERITY HOSPITAL [facility] - 8 8 N [facility]OSP[facility] EMERGENCY 72375 [facility] 8 8 N [facility] T VISIT HOSPITAL LOW/MODER SEVERITY EMERGENCY 63912 [facility], 8 8 JEFFY SMITH [facility] EMERGENC[facility] A T VISIT PHYS INC MODERATE SEVERITY OFFICE 03224 Timur AMIN CONSULTAT 8 8 MEDICAL D ION SERV NEW/ESTAB FOUNDATIO PATIENT 40 MIN EMERGENCY 45945 [facility] DEPT 8 8 JEFFY SMITH VISIT EMERGENCY A HIGH PHYS INC SEVERITY& THREAT FUNCJ EMERGENCY 92951 [facility] 8 8 Y [facility] T VISIT LIMITED/M INOR PROB [facility] - 8 8 Y [facility] T EMERGENCY 48451 GRACIE WELLS 8 8 MEDICAL , C A DEPARTMEN SERV T VISIT FOUNDATIO MODERATE SEVERITY EMERGENCY 74142 [facility] 8 8 Y [facility] T VISIT HIGH/URGE NT SEVERITY HOSPITAL [facility] - 8 8 Y [facility] T EMERGENCY 09348 GRACIE LANGE 8 8 MEDICAL I, MORELIA DEPARTMEN SERV A T VISIT FOUNDATIO MODERATE SEVERITY EMERGENCY 53205 [facility] DEPT 8 8 JEFFY KIDD VISIT EMERGENCY HIGH PHYS INC SEVERITY& THREAT FUNCJ
--- OUTSIDE RECORDS SUMMARY | 2017-02-21 09:55 | External Medical Summary Rpt | CCD ---
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 INC RTING STRUCTURES 5206 DISTURBANCE 10-19-2008 [facility] S IN TOOTH [facility] HOS[facility] ERUPTION INC 33030 UNSPECIFIED 10-05-2008 [facility] DENTAL [facility] 7880 RENAL COLIC 09-22-2008 [facility] 5693 HEMORRHAGE 09-02-2008 [facility] 42646 NON-HEALING 09-01-2008 [place], SURGICAL QUITA WOUND NEC 5289 OTHER&UNSPE 08-20-2008 [facility] CIFIED N EMERGENCY DISEASES PHYS INC THE ORAL SOFT TISSUES 5650 ANAL 08-16-2008 [facility] FISSURE N EMERGENCY PHYS INC 14295 ULCER OF 08-16-2008 [facility] ANUS AND [facility] RECTUM [facility] 7291 UNSPECIFIED 08-13-2008 [facility] V5877 AFTERCARE 08-13-2008 [facility] FOLLOW N EMERGENCY SURGERY PHYS INC SKIN&SUBCUT TISSUE NEC 566 ABSCESS OF 07-27-2008 [facility] REGIONS 8469 UNSPECIFIED 05-18-2008 LYNDSAY NAVARRO SITE [place]ILI[place] [address] UNSPECIFIED 05-17-2008 [facility] [place] INC CYSTIC KIDNEY DISEASE 2720 PURE 04-30-2008 [facility]ICE [place] HYPERCHOLES DIAGNOSTIC TEROLEMIA SERVICES 95872 PRECORDIAL 04-30-2008 [facility] [place] PAIN DIAGNOSTIC SERVICES 44460 OTHER CHEST 04-21-2008 [facility] V173 FAMILY 04-21-2008 [place] HISTORY OF [facility] HOSPITAL HEART DISEASE 4553 EXTERNAL 04-14-2008 [...] 10 5- 9- 00 06 TO ve MD 26 20 20 09 WN IL 90 [...] ve LO 19 20 20 09 WN MD 70 17 17 33 AM 0 07 [...] 10 8- 1- 00 06 TO ve MD 26 20 20 09 WN IL 90 [...] ve LO 19 20 20 09 WN MD 70 17 17 20 AM 0 95 [...] 10 3- 1- 00 06 TO ve MD 26 20 20 07 WN IL 90 17 17 97 8 07 PH 20 AR MA MG CY TA OF BL ET CY NT HI AN A ES 68 06 07 15 30 00 HO Ac CI 00 -2 -2 .0 00 ME ti TA 10 3- 1- 00 06 TO ve LO 19 20 20 07 WN MD 70 17 17 97 AM 3 06 PH AR 20 MA CY MG OF TA BL CY ET NT HI AN A CY 10 05 06 30 30 00 HO Ac CL 70 -3 -2 .0 00 ME ti OB 20 0- 3- 00 06 TO ve EN 00 20 20 08 WN ZA 60 17 17 78 MD 1 58 PH IN AR E MA [...] 10 2- 6- 00 06 TO ve MD 26 20 20 07 WN IL 90 [...] ve LO 19 20 20 07 WN MD 70 17 17 97 AM 3 06 [...] 10 1- 9- 00 06 TO ve MD 26 20 20 07 WN IL 90 17 17 97 8 07 PH 20 AR MA MG CY TA OF BL ET CY NT HI AN A ES 68 04 05 15 30 00 HO Ac CI 00 -2 -1 .0 00 ME ti TA 10 1- 9- 00 06 TO ve LO 19 20 20 07 WN MD 70 17 17 97 AM 3 06 [...] 10 0- 4- 00 06 TO ve MD 26 20 20 07 WN IL 90 17 17 97 8 07 PH 20 AR MA MG CY TA OF BL ET CY NT HI AN A ES 68 03 04 15 30 00 HO Ac CI 00 -2 -1 .0 00 ME ti TA 10 0- 4- 00 06 TO ve LO 19 20 20 07 WN MD 70 17 17 97 AM 3 06 [...] 1 34 CV CE S TA PH OK AR NO MA PH CY EN LL [...] 10 5- 0- 00 06 TO ve MD 26 20 20 07 WN IL 90 17 17 97 8 07 PH 20 AR MA MG CY TA OF BL ET CY NT HI AN A ES 68 02 03 15 30 00 HO Ac CI 00 -1 -1 .0 00 ME ti TA 10 5- 0- 00 06 TO ve LO 19 20 20 07 WN MD 70 17 17 97 AM 3 06 [...] 50 8- 0- 00 06 TO ve MD 62 20 20 07 WN IL 01 17 17 97 0 07 PH 20 AR MA MG CY TA OF BL ET CY NT HI AN A ES 68 01 02 15 30 00 HO Ac CI 00 -1 -1 .0 00 ME ti TA 10 8- 0- 00 06 TO ve LO 19 20 20 07 WN MD 70 17 17 97 AM 3 06 [...] 12 01 20 10 00 HO Ac MD 57 -3 -2 .0 00 ME ti [...] N ZA 11 11 11 MA RY MD 0 CY AN IN # A E [...] 40 11 11 MA E- 1 CY OK IB # CH UP AE RO 02 L FE 33 N 2 7. 5- 20 0 MD 00 05 05 0 25 5 CV 49 CH Ac ED 59 -1 -1 .0 S 13 ES ti NI 15 6- 6- 00 PH 66 TN ve SO 44 20 20 AR UT NE 20 11 11 MA 1 CY OK 10 # CH AE MG 02 L [...] 0 20 10 CV 41 CE Ac MD 09 -2 -2 .0 S 86 LL [...] UT 70 10 10 MA 5 CY OK # CH AE 02 L 33 2 CE 68 04 04 20 5 CV 35 CH Ac PH 18 -0 -0 .0 S 32 ES ti AL 00 8- 8- 00 PH 73 TN ve EX 12 20 20 AR UT IN 20 10 10 MA 2 CY OK 50 # CH 0 AE MG 02 [...] 5 UG DA NI IN EL C MD 00 03 03 0 12 4 WI 32 GR Ac OM 60 -2 -2 0. LS 93 AB ti ET 31 4- 4- 00 ON 18 QUINTERO ve QUINTERO 58 20 20 0 M ZI [address] DA NE 8 UG NA -D M IN SY C RU P MD 50 03 03 0 12 2 WI [...] CE 1 PH TH TA AR OM OK MA NO CY PH # EN 10 7. 04 32 5 OX 00 02 02 0 10 2 WA 22 DA Ac YC 59 -2 -2 .0 L- 17 LE ti OD 10 8- 8- 00 MA 56 ve ON 93 20 20 RT 1 II -A 30 10 10 CE 1 PH TH TA AR OM OK MA NO CY PH # EN 10 [...] bl AR e MA CY #4 93 MD 50 02 02 00 12 4 WI [...] 7- 0- 00 ON 56 D ve MD 00 20 20 MU ED 10 09 [...] 00 10 5 WI 27 WI Ac MD 11 -1 -2 .0 LS 08 CK [...] RT 8 T CI 31 09 09 OK N 6 PH CH HC AR AE [...] 20 20 RT 7 64 08 09 OK 8 PH CH AR AE MA L CY S #5 91 AC 00 12 01 00 9. 3 WA 44 GA Ac ET 09 -1 -0 00 L- 72 IN ti AM 30 5- 1- 0 MA 89 EY ve IN 15 20 20 RT 2 OP 01 08 09 OK HE 0 PH CH N- AR AE [...] P DAY 22/MORE DR CL DRUG TEST 09334 LAB T[facility] LAB T[facility]RE PRSMV 7 [facility] INSTRMNT [facility] HOLDINGS CHEMISTRY ANALYZERS CUL BACT 63075 [facility] T[facility] AEROBIC 7 VEL VEL ADDL [facility] METHS DEFINITIV E EA ISOL SUSCEPTIB 91657 LAB [facility] T[facility] LTY STDY 7 [facility] ANTIMICRB [facility]INGS HOLDINGS IAL MICRO/AGA R DILUTJ CULTURE 10623 LAB [facility] T[facility] BACTERIAL 7 VEL VEL [facility]INGS QUANTTATI VE COLONY COUNT URINE CULTURE 73911 LAB [facility] T[facility] BCT 7 VEL VEL ISOL&PRSM [facility] HOLDINGS PTV ID ISOLATE EA URINE RADEX 71800 [facility] RAMOSON SPINE 7 [facility] LUMBOSACR INC INC AL MINIMUM 4 VIEWS RADEX HIP 00177 RAM[facility] RAMÓN 7 [facility] UNILATERA INC INC L WITH PELVIS 2-[address] UPPER 39215 [facility] EXTREMITY 7 RADIOLOGY W/O CONTRAST MATERIAL RADIOLOGI 45291 RAMÓN RAMOSON C 7 [facility] EXAMINATI INC INC ON CHEST SINGLE VIEW FRONTAL RADEX 34535 RAMÓN MELGAR ABDOMEN 1 7 [facility] INC INC ANTEROPOS TERIOR VIEW RADIOLOGI 65220 RAMÓN RAMOSON C 7 [facility] EXAMINATI [place] [address] GRACIE DIETER SCROTUM & 7 MEDICAL CORIE CONTENTS SERV FOUNDATIO N DUP-SCAN 97400 GRACIE GARCIAS ARTL RAIZA 7 MEDICAL CORIE ABDL/PEL/ SERV SCROT&/RP FOUNDATIO R ORGN N COM LIPID 66477 LAB T[facility]RE LAB T[facility]RE PANEL 7 VEL VEL [facility] COLLECTIO 96695 JENNIFER GRUBER N VENOUS 7 PHYSICIAN BLOOD PRACTICE VENIPUNCT L URE CREATININ 93751 LAB T[facility] LAB TIGRE E OTHER 7 VEL VEL SOURCE HOLDINGS HOLDINGS ALBUMIN 76651 LAB TIGRE LAB TIGRE URINE 7 [facility] MICROALBU HOLDINGS HOLDINGS MIN QUANTIATI VE ALBUMIN 33978 JENNIFER GRUBER URINE 7 PHYSICIAN MICROALBU PRACTICE MIN L SEMIQUANT ITATIVE ECG 17958 JENNIFER ALLYN ROUTINE 7 PHYSICIAN ECG PRACTICE W/LEAST L 12 LDS W/I&R COMPREHEN 62375 LAB T[facility]RE LAB TIGRE SIVE 7 VEL VEL METABOLIC HOLDINGS HOLDINGS PANEL RADEX 08942 [facility] [place] TRISH ABDOMEN 1 7 RADI[place] [address] [facility] LIPASE 6 [facility] BLOOD 81109 [facility] COUNT 6 [facility] COMPLETE E E AUTO&AUTO HOSPITALS HOSPITALS DIFRNTL WBC COMPREHEN 35731 [facility] SIVE 6 [facility]ALTHCAR METABOLIC E E PANEL [facility] ONDANSETR Q0162 [facility] ON 1 MG 6 [facility]ALTHCAR ORL NOT E E EXCEED 48 [facility] HR DOSE REG COMPREHEN 96914 [facility] SIVE 6 [facility]ALTHCAR METABOLIC E E PANEL [facility] [place] [address] [facility] LIPASE 6 [facility]IT[facility] BLOOD 96705 [facility] COUNT 6 [facility]ALTH[facility] COMPLETE E E AUTO&AUTO HOSPITALS HOSPITALS DIFRNTL WBC INJECTION J1100 [facility] UK 6 [facility]ALTH[facility]ALTHCAR DEXAMETHO E E SONE [facility] SODIUM PHOSPHATE 1 [place] [address] [facility] LACTATE 6 [facility] [place] [address] [place] GARCIAS ABDOMEN & 6 MEDICAL CORIE PELVIS SERV W/[place] [address] [facility] [place] KISHIMOTO ABDOMEN & 6 RADIOLOGY PELVIS W/O CONTRAST MATERIAL DRUG TST G0477 RAMÓN MELGAR PRESUMP;C 6 [facility] PBL BEING INC [place] [address] [facility], [place] [facility] 6 [facility] CLEMENTNIE PATHOLOGY GROSS&CONCHIS ROSCOPIC EXAM ORCHIECTO 16035 [facility] MY SIMPLE 6 [place] KIEL ADULT & SCROTAL/I PED NGUINAL APPROACH ANESTHESI 35469 [place] HAI ROLO A MALE 6 ANESTHESI GENITALIA A GROUP INCL PS OPEN URETHRAL PX ECG 81277 RAMÓN MELGAR ROUTINE 6 [facility] ECG INC INC W/LEAST 12 LDS TRCG ONLY W/O I&R CULTURE 91958 RAMÓN MELGAR BACTERIAL 6 [facility] INC INC QUANTTATI VE COLONY COUNT URINE BLOOD 38020 RAMÓN MELGAR COUNT 6 [facility] COMPLETE INC INC AUTO&AUTO DIFRNTL WBC COLLECTIO 71716 RAMÓN MELGAR N VENOUS 6 [facility] BLOOD INC INC VENIPUNCT URE URNLS DIP 36134 RAMÓN MELGAR 6 [facility] STICK/TAB INC INC LET REAGENT AUTO MICROSCOP Y ECG 15293 RAMÓN EWING ROUTINE 6 [facility] W/LEAST P 12 LDS I&R ONLY COMPREHEN 05399 RAMÓN MELGAR SIVE 6 [facility] METABOLIC INC INC PANEL COLLECTIO 06711 RAMÓN MELGAR N VENOUS 6 [facility] BLOOD INC INC VENIPUNCT URE PROSTATE G0103 RAMÓN MELGAR CANCER 6 [facility] SCREENING INC INC ; PSA TEST GONADOTRO 76149 RAMÓN MELGAR PIN 6 [facility] [place] [address] RAMÓN MELGAR PROLACTIN 6 [place] [address] RAMÓN MELGAR TESTOSTER 6 [facility] ONE TOTAL INC INC DRUG TST G0477 RAMÓN MELGAR PRESUMP;C 6 [facility] PBL BEING INC INC READ DC OPT OBV ONLY BLOOD 90566 RAMÓN MELGAR COUNT 6 [facility] COMPLETE INC INC AUTO&[place] [address] RAMÓN MELGAR ABDOMEN & 6 [facility] PELVIS INC INC W/O CONTRAST MATERIAL URNLS DIP 51357 RAMÓN MELGAR 6 [facility] STICK/TAB INC INC LET REAGENT AUTO MICROSCOP Y COMPREHEN 15937 RAMÓN MELGAR SIVE 6 [facility] METABOLIC INC INC PANEL SIMPLE 34764 [facility] CYSTOMETR 6 [place] KIEL OGRAM ADULT & PED COMPLEX 52323 [facility] CENTRAL UROFLOMET 6 [facility]ULT & PED PED IMER 51858 [facility] LI POST-VOID 6 [facility] KIEL ING ADULT & RESIDUAL PED URINE&/BL ADDER CAP CYSTO 38589 [facility] CALIBRATI 6 [facility] KIEL ON DILAT ADULT & URTL PED STRIX/HEIDI NOSIS DRUG TST G0477 [facility] LI PRESUMP;C 6 [facility] DYSON PBL BEING ADULT & READ DC PED OPT OBV ONLY URNLS DIP 24801 RAMÓN MELGAR 6 [facility] STICK/TAB INC INC LET REAGENT AUTO MICROSCOP Y ADMN SET A7003 JANEL ISLAS SM VOL 6 HOME HOME NONFILTR MEDICAL MEDICAL PNEUMAT EQUIPME EQUIPME NEBULIZR DISPBL THERAPEUT 07752 [facility] 5 Y Y [facility] TIC/DX INJECTION SUBQ/[place] [address] RAMÓN MELGAR ABDOMEN & 5 [facility] PELVIS INC INC W/O CONTRAST MATERIAL BLOOD 81186 RAMÓN MELGAR COUNT 5 [facility] COMPLETE INC INC AUTO&[place] [address] RAMÓN MELGAR LIPASE 5 [facility] INC INC URNLS DIP 17657 RAMÓN MELGAR 5 [facility] STICK/TAB INC INC [place] [address] RAMÓN MELGAR AMYLASE 5 [facility] INC INC COMPREHEN 15908 RAMÓN MELGAR SIVE 5 [facility] METABOLIC INC INC PANEL MRI 79990 [facility] [place] [facility] SEGALCELE SPINAL 5 MEDICAL MARIO CANAL IMAGING LUMBAR ASS W/O CONTRAST MATERIAL RADEX 34196 RAMÓN MELGAR ORBITS 5 [facility] COMPLETE INC INC MINIMUM 4 VIEWS RADIOLOGI 42903 [facility] [place] [facility] YONI Freeman 5 MEDICAL IVANNA EXAMINATI IMAGING ON EYE ASS DETECT FOREIGN BODY 3D 61792 SHEBA CELE RENDERING 5 MEDICAL MARIO W/INTERP IMAGING & ASS POSTPROCE SS SUPERVISI ON HEMOGLOBI 19218 RAMÓN MELGAR N 5 [facility] GLYCOSYLA INC INC THERESA A1C COLLECTIO 42655 RAMÓN MELGAR N VENOUS 5 [facility] [place] [address] RAMÓN MELGAR FREE 5 [facility] [place] [address] RAMÓN MELGAR THYROID 5 [facility] STIMULATI INC INC NG HORMONE TSH BASIC 53721 RAMÓN RAMÓN METABOLIC 5 [facility] PANEL INC INC CALCIUM TOTAL RADEX 13657 [place] CELE FINGR 5 MEDICAL MARIO MINIMUM 2 IMAGING VIEWS ASS RADEX 06314 [place] CELE SPINE 4 MEDICAL MARIO LUMBOSACR IMAGING AL ASS MINIMUM 4 VIEWS RADIOLOGI 93037 [place] CELE C 4 MEDICAL MARIO EXAMINATI IMAGING [place] [address] [place] CELE ABDOMEN & 4 MEDICAL MARIO PELVIS IMAGING W/O ASS CONTRAST MATERIAL RADIOLOGI 40613 [place] CELE C 4 MEDICAL MARIO EXAMINATI IMAGING ON PELVIS ASS 1/2 VIEWS RADIOLOGI 48446 [place] CELE C EXAM 4 MEDICAL MARIO CHEST 2 IMAGING VIEWS ASS FRONTAL&L ATERAL KNEE L1830 [employer] ORTHOSIS 4 IMMOBLIZE R CANVAS LONGTUDNL PREFAB RADEX 52506 RAMÓN MELGAR SHOULDER 4 [facility] COMPLETE INC INC MINIMUM 2 VIEWS INCISION 22206 KANDI MILES & 4 [place] [address] BELCHER JAM BELCHER JAM ABDOMEN & 4 PELVIS W/O CONTRAST MATERIAL NEBULIZER E0570 JANEL ISLAS WITH 4 HOME HOME COMPRESSO MEDICAL MEDICAL R EQUIPME EQUIPME ADMN SET A7003 YOUR YOUR SM VOL 4 [facility] PNEUMAT NEBULIZR DISPBL COMPREHEN 21936 RAMÓN MELGAR SIVE 3 [facility] METABOLIC INC INC PANEL HEMOGLOBI 56043 RAMÓN MELGAR N 3 [facility] GLYCOSYLA INC INC THERESA A1C BLOOD 01729 RAMÓN MELGAR COUNT 3 [facility] COMPLETE INC INC AUTO&[place] [address] RAMÓN MELGAR THYROXINE 3 [facility] [place] [address] RAMÓN MELGAR THYROID 3 [facility] STIMULATI INC INC NG HORMONE TSH LIPID 40640 RAMÓN MELGAR PANEL 3 [facility] INC INC RADEX 86762 KOSTELIC KOSTELIC SPINE 3 VINICIO VINICIO LUMBOSACR AL 2/3 VIEWS SIMPLE 61017 YARIEL RODRIGUEZ MAR REPAIR 3 EMERGENCY SCALP/NEC SERVICES K/AX/MAIRA T/TRUNK 2.5CM/< [place] [address] BELCHER JAM BELCHER JAM ABDOMEN & 3 PELVIS W/O CONTRAST MATERIAL URNLS DIP 53109 RAMÓN MELGAR 3 [facility] STICK/TAB INC INC LET REAGENT AUTO MICROSCOP Y RADIOLOGI 02421 MARIBELL C MARIBELL C C EXAM 2 CHEST 2 VIEWS FRONTAL&L ATERAL RADIOLOGI 28029 [facility] [place] MASTERS C EXAM 2 RADIOLOGY JOSHUA CHEST 2 VIEWS FRONTAL&L ATERAL RADEX 19744 [facility] [place] JAY HAND 2 RADIOLOGY LIZA MINIMUM 3 VIEWS RADEX 58796 [facility] [place] TRISH HAND 2 RADIOLOGY RHO MINIMUM 3 VIEWS RADEX TOE 26172 [place] CELE MINIMUM 2 MEDICAL MARIO [address] [place] [address] [facility] [place] ABDOMEN & 2 RADIOLOGY RAY PELVIS W/[place] [address] RAMÓN MELGAR ABDOMEN & 2 [facility] PELVIS INC INC W/O CONTRAST MATERIAL BLOOD 74799 RAMÓN MELGAR COUNT 2 [facility] COMPLETE INC INC AUTO&AUTO DIFRNTL WBC 3D 23717 RAMÓN MELGAR RENDERING 2 [facility] INC INC W/INTERP& POSTPROC DIFF WORK STATION URNLS DIP 82159 RAMÓN MELGAR 2 [facility] STICK/TAB INC INC LET REAGENT AUTO MICROSCOP Y BASIC 16542 RAMÓN RAMÓN METABOLIC 2 [facility] PANEL INC INC CALCIUM TOTAL RADIOLOGI 52388 [facility] GRACIE NELSON MAT C 2 RADIOLOGY EXAMINATI ON KNEE 3 [place] [address] [facility] [place] OMAR GE SCROTUM & 2 RADIOLOGY CONTENTS RADEX 32846 JENNIFER RODRIGUEZ FINGR [address] [facility] VIEWS DUP-SCAN 47413 [facility] [place] SIMI [place] ARTL RAIZA 2 RADIOLOGY ABDL/PEL/ SCROT&/RP R ORGN LMT RADEX 37181 [place] GERALD JAM HAND 2 MEDICAL MINIMUM 3 SERV VIEWS FOUNDATIO RADEX 60193 [facility] [place] SCALF CLEMENTINE HAND 2 RADIOLOGY MINIMUM 3 VIEWS URNLS DIP 18808 RAMÓN MELGAR 2 [facility] STICK/TAB INC [place] [address] RAMÓN MELGAR SCROTUM & 2 [facility] CONTENTS INC INC RADEX 92866 [facility] WHITTIER SPINE 2 [facility] AL 2/[address] LUMBAR 30011 GRACIE MERHAR SPINE 2 MEDICAL GAR W/O SERV CONTRAST FOUNDATIO MATERIAL SIMPLE 00305 OSWALDO CHACON REPAIR 2 JULIO JULIO SCALP/NEC K/AX/MAIRA T/TRUNK 2.5CM/< RADEX 05234 [facility] [place] TRISH HAND 2 RADIOLOGY RHO MINIMUM 3 VIEWS CUL BACT 57313 RAMÓN MELGAR AEROBIC 2 [facility] ADDL INC INC METHS DEFINITIV E EA ISOL CUL BACT 06337 RAMÓN MELGAR XCPT 2 [facility] URINE INC INC BLOOD/STO OL AEROBIC ISOL SUSCEPTIB 89819 RAMÓN MELGAR LTY STDY 2 [facility] ANTIMICRB INC INC IAL MICRO/AGA R DILUTJ INCISION 99880 RAMÓN MELGAR & 2 [facility] DRAINAGE INC INC ABSCESS SIMPLE/SI NGLE INCISION 05099 YARIEL OCHOA & 2 EMERGENCY CONCHIS DRAINAGE SERVICES ABSCESS COMPLICAT ED/MULTIP LE RADEX 33697 [facility] GRACIE NELSON MAT SPINE 2 RADIOLOGY LUMBOSACR AL 2/3 VIEWS RADEX 70754 RAMÓN MELGAR SPINE 2 [facility] LUMBOSACR INC INC AL MINIMUM 4 VIEWS RADEX 93943 [facility] GRACIE GE FINGR 2 RADIOLOGY MINIMUM 2 VIEWS APPLICATI 01744 DANNIELLE SPICER ON FINGER 1 ABD ABD SPLINT DYNAMIC WRIST L3807 TOBIAS CENTRAL HAND 1 SHARI SHEBA FINGR ORTHOPAED ORTHOS IC W/O JNT PREFAB CSTM FIT RADEX 89874 [facility] [place] OMAR MAT HAND 1 RADIOLOGY MINIMUM 3 VIEWS RADEX 09751 [place] DISANTIS HAND 1 MEDICAL REMINGTON MINIMUM 3 SERV VIEWS FOUNDATIO RADEX 09450 SHEBA CELE ANKLE 1 MEDICAL MARIO COMPLETE IMAGING MINIMUM 3 ASS VIEWS MANUAL 10711 ESCALANTE JULIO ESCALANTE JULIO THERAPY 1 TQS 1/> REGIONS EACH 15 MINUTES CHIROPRAC 04795 ESCALANTE JULIO ESCALANTE JULIO TIC 1 MANIPULAT [place] SPINAL 3-4 REGIONS APPL 72233 ESCALANTE JULIO ESCALANTE JULIO MODALITY 1 1/> AREAS TRACTION MECHANICA L APPL 06705 ESCALANTE JULIO ESCALANTE JULIO MODALITY 1 1/> AREAS ELEC STIMJ UNATTENDE D CHIROPRAC 58169 ESCALANTE JULIO ESCALANTE JULIO TIC 1 MANIPLTV TX EXTRASPIN AL 1/> REGION THERAPEUT 60516 ESCALANTE JULIO ESCALANTE JULIO IC PX 1/> 1 AREAS EACH 15 MIN EXERCISES APPLICATI 36393 ESCALANTE JULIO ESCALANTE JULIO ON 1 MODALITY 1/> AREAS HOT/COLD PACKS APPLICATI 79397 ESCALANTE JULIO ESCALANTE JULIO ON 1 MODALITY 1/> AREAS HOT/COLD PACKS THERAPEUT 06404 ESCALANTE JULIO ESCALANTE JULIO IC PX 1/> 1 AREAS EACH 15 MIN EXERCISES CHIROPRAC 85830 ESCALANTE JULIO ESCALANTE JULIO TIC 1 MANIPLTV TX EXTRASPIN AL 1/> REGION APPL 74336 ESCALANTE JULIO ESCALANTE JULIO MODALITY 1 1/> AREAS ELEC STIMJ UNATTENDE D CHIROPRAC 01695 ESCALANTE JULIO ESCALANTE JULIO TIC 1 MANIPULAT [place] SPINAL 3-4 REGIONS MANUAL 89387 ESCALANTE JULIO ESCALANTE JULIO THERAPY 1 TQS 1/> REGIONS EACH 15 MINUTES APPL 39394 ESCALANTE JULIO ESCALANTE JULIO MODALITY 1 1/> AREAS TRACTION MECHANICA L MANUAL 81720 ESCALANTE JULIO ESCALANTE JULIO THERAPY 1 TQS 1/> REGIONS EACH 15 MINUTES APPL 29160 ESCALANTE JULIO ESCALANTE JULIO MODALITY 1 1/> AREAS TRACTION MECHANICA L APPL 18012 ESCALANTE JULIO ESCALANTE JULIO MODALITY 1 1/> AREAS ELEC STIMJ UNATTENDE D CHIROPRAC 96412 ESCALANTE JULIO ESCALANTE JULIO TIC 1 MANIPULAT [place] SPINAL 3-4 REGIONS CHIROPRAC 57819 ESCALANTE JULIO ESCALANTE JULIO TIC 1 MANIPLTV TX EXTRASPIN AL 1/> REGION THERAPEUT 01047 ESCALANTE JULIO ESCALANTE JULIO IC PX 1/> 1 AREAS EACH 15 MIN EXERCISES APPLICATI 59144 ESCALANTE JULIO ESCALANTE JULIO ON 1 MODALITY 1/> AREAS HOT/COLD PACKS APPLICATI 77288 ESCALANTE JULIO ESCALANTE JULIO ON 1 MODALITY 1/> AREAS HOT/COLD PACKS THERAPEUT 70393 ESCALANTE JULIO ESCALANTE JULIO IC PX 1/> 1 AREAS EACH 15 MIN EXERCISES CHIROPRAC 74442 ESCALANTE JULIO ESCALANTE JULIO TIC 1 MANIPLTV TX EXTRASPIN AL 1/> REGION APPL 11608 ESCALANTE JULIO ESCALANTE JULIO MODALITY 1 1/> AREAS ELEC STIMJ UNATTENDE D APPL 76499 ESCALANTE JULIO ESCALANTE JULIO MODALITY 1 1/> AREAS TRACTION MECHANICA L CHIROPRAC 45288 ESCALANTE JULIO ESCALANTE JULIO TIC 1 MANIPULAT [place] SPINAL 3-4 REGIONS MANUAL 53162 ESCALANTE JULIO ESCALANTE JULIO THERAPY 1 TQS 1/> REGIONS EACH 15 MINUTES MANUAL 95620 ESCALANTE JULIO ESCALANTE JULIO THERAPY 1 TQS 1/> REGIONS EACH 15 MINUTES APPL 22677 ESCALANTE JULIO ESCALANTE JULIO MODALITY 1 1/> AREAS TRACTION MECHANICA L CHIROPRAC 08447 ESCALANTE JULIO ESCALANTE JULIO TIC 1 MANIPULAT [place] SPINAL 3-4 REGIONS APPL 83967 ESCALANTE JULIO ESCALANTE JULIO MODALITY 1 1/> AREAS ELEC STIMJ UNATTENDE D CHIROPRAC 43313 ESCALANTE JULIO ESCALANTE JULIO TIC 1 MANIPLTV TX EXTRASPIN AL 1/> REGION THERAPEUT 49326 ESCALANTE JULIO ESCALANTE JULIO IC PX 1/> 1 AREAS EACH 15 MIN EXERCISES APPLICATI 15134 ESCALANTE JULIO ESCALANTE JULIO ON 1 MODALITY 1/> AREAS HOT/COLD PACKS APPLICATI 03881 ESCALANTE JULIO ESCALANTE JULIO ON 1 MODALITY 1/> AREAS HOT/COLD PACKS THERAPEUT 45436 ESCALANTE JULIO ESCALANTE JULIO IC PX 1/> 1 AREAS EACH 15 MIN EXERCISES CHIROPRAC 25855 ESCALANTE JULIO ESCALANTE JULIO TIC 1 MANIPLTV TX EXTRASPIN AL 1/> REGION APPL 17094 ESCALANTE JULIO ESCALANTE JULIO MODALITY 1 1/> AREAS ELEC STIMJ UNATTENDE D CHIROPRAC 08713 ESCALANTE JULIO ESCALANTE JULIO TIC 1 MANIPULAT [place] SPINAL 3-4 REGIONS APPL 04292 ESCALANTE JULIO ESCALANTE JULIO MODALITY 1 1/> AREAS TRACTION MECHANICA L MANUAL 65810 ESCALANTE JULIO ESCALANTE JULIO THERAPY 1 TQS 1/> REGIONS EACH 15 MINUTES MANUAL 76822 ESCALANTE JULIO ESCALANTE JULIO THERAPY 1 TQS 1/> REGIONS EACH 15 MINUTES APPL 11239 ESCALANTE JULIO ESCALANTE JULIO MODALITY 1 1/> AREAS TRACTION MECHANICA L CHIROPRAC 20900 ESCALANTE JULIO ESCALANTE JULIO TIC 1 MANIPULAT [place] SPINAL 3-4 REGIONS APPL 45389 ESCALANTE JULIO ESCALANTE JULIO MODALITY 1 1/> AREAS ELEC STIMJ UNATTENDE D CHIROPRAC 76936 ESCALANTE JULIO ESCALANTE JULIO TIC 1 MANIPLTV TX EXTRASPIN AL 1/> REGION THERAPEUT 79838 ESCALANTE JULIO ESCALANTE JULIO IC PX 1/> 1 AREAS EACH 15 MIN EXERCISES APPLICATI 70595 ESCALANTE JULIO ESCALANTE JULIO ON 1 MODALITY 1/> AREAS HOT/COLD PACKS APPLICATI 41660 ESCALANTE JULIO ESCALANTE JULIO ON 1 MODALITY 1/> AREAS HOT/COLD PACKS THERAPEUT 68968 ESCALANTE JULIO ESCALANTE JULIO IC PX 1/> 1 AREAS EACH 15 MIN EXERCISES CHIROPRAC 14745 ESCALANTE JULIO ESCALANTE JULIO TIC 1 MANIPLTV TX EXTRASPIN AL 1/> REGION APPL 25934 ESCALANTE JULIO ESCALANTE JULIO MODALITY 1 1/> AREAS ELEC STIMJ UNATTENDE D CHIROPRAC 38472 ESCALANTE JULIO ESCALANTE JULIO TIC 1 MANIPULAT [place] SPINAL 3-4 REGIONS APPL 48858 ESCALANTE JULIO ESCALANTE JULIO MODALITY 1 1/> AREAS TRACTION MECHANICA L MANUAL 32118 ESCALANTE JULIO ESCALANTE JULIO THERAPY 1 TQS 1/> REGIONS EACH 15 MINUTES MANUAL 16691 ESCALANTE JULIO ESCALANTE JULIO THERAPY 1 TQS 1/> REGIONS EACH 15 MINUTES APPL 35509 ESCALANTE JULIO ESCALANTE JULIO MODALITY 1 1/> AREAS TRACTION MECHANICA L APPL 36909 ESCALANTE JULIO ESCALANTE JULIO MODALITY 1 1/> AREAS ELEC STIMJ UNATTENDE D CHIROPRAC 25303 ESCALANTE JULIO ESCALANTE JULIO TIC 1 MANIPLTV TX EXTRASPIN AL 1/> REGION CHIROPRAC 08146 ESCALANTE JULIO ESCALANTE JULIO TIC 1 [place]IP[place]AT [place] SPINAL 3-4 REGIONS APPLICATI 39603 ESCALANTE JULIO ESCALANTE JULIO ON 1 MODALITY 1/> AREAS HOT/COLD PACKS THERAPEUT 84533 ESCALANTE JULIO ESCALANTE JULIO IC PX 1/> 1 AREAS EACH 15 MIN EXERCISES THERAPEUT 26274 ESCALANTE JULIO ESCALANTE JULIO IC PX 1/> 1 AREAS EACH 15 MIN EXERCISES APPLICATI 85373 ESCALANTE JULIO ESCALANTE JULIO ON 1 MODALITY 1/> AREAS HOT/COLD PACKS CHIROPRAC 82283 ESCALANTE JULIO ESCALANTE JULIO TIC 1 MANIP[place]AT [place] SPINAL 3-4 REGIONS CHIROPRAC 69669 ESCALANTE JULIO ESCALANTE JULIO TIC 1 MANIPLTV TX EXTRASPIN AL 1/> REGION APPL 00175 ESCALANTE JULIO ESCALANTE JULIO MODALITY 1 1/> AREAS ELEC STIMJ UNATTENDE D APPL 24839 ESCALANTE JULIO ESCALANTE JULIO MODALITY 1 1/> AREAS TRACTION MECHANICA L MANUAL 23665 ESCALANTE JULIO ESCALANTE JULIO THERAPY 1 TQS 1/> REGIONS EACH 15 MINUTES MANUAL 08756 ESCALANTE JULIO ESCALANTE JULIO THERAPY 1 TQS 1/> REGIONS EACH 15 MINUTES CHIROPRAC 03452 ESCALANTE JULIO ESCALANTE JULIO TIC 1 [place]IP[place]AT [place] SPINAL 3-4 REGIONS APPL 69433 ESCALANTE JULIO ESCALANTE JULIO MODALITY 1 1/> AREAS ELEC STIMJ UNATTENDE D APPL 25657 ESCALANTE JULIO ESCALANTE JULIO MODALITY 1 1/> AREAS TRACTION MECHANICA L CHIROPRAC 52206 ESCALANTE JULIO ESCALANTE JULIO TIC 1 MANIPLTV TX EXTRASPIN AL 1/> REGION APPLICATI 85529 ESCALANTE JULIO ESCALANTE JULIO ON 1 MODALITY 1/> AREAS HOT/COLD PACKS THERAPEUT 35832 ESCALANTE JULIO ESCALANTE JULIO IC PX 1/> 1 AREAS EACH 15 MIN EXERCISES THERAPEUT 27896 ESCALANTE JULIO ESCALANTE JULIO IC PX 1/> 1 AREAS EACH 15 MIN EXERCISES APPLICATI 28752 ESCALANTE JULIO ESCALANTE JULIO ON 1 MODALITY 1/> AREAS HOT/COLD PACKS CHIROPRAC 24915 ESCALANTE JULIO ESCALANTE JULIO TIC 1 MANIPLTV TX EXTRASPIN AL 1/> REGION APPL 31253 ESCALANTE JULIO ESCALANTE JULIO MODALITY 1 1/> AREAS TRACTION MECHANICA L APPL 18592 ESCALANTE JULIO ESCALANTE JULIO MODALITY 1 1/> AREAS ELEC STIMJ UNATTENDE D CHIROPRAC 99807 ESCALANTE JULIO ESCALANTE JULIO TIC 1 MANIP[place]AT [place] SPINAL 3-4 REGIONS MANUAL 61797 ESCALANTE JULIO ESCALANTE JULIO THERAPY 1 TQS 1/> REGIONS EACH 15 MINUTES MANUAL 96214 ESCALANTE JULIO ESCALANTE JULIO THERAPY 1 TQS 1/> REGIONS EACH 15 MINUTES CHIROPRAC 89455 ESCALANTE JULIO ESCALANTE JULIO TIC 1 [place]IP[place]AT [place] SPINAL 3-4 REGIONS APPL 79362 ESCALANTE JULIO ESCALANTE JULIO MODALITY 1 1/> AREAS ELEC STIMJ UNATTENDE D APPL 51657 ESCLAANTE JULIO ESCALANTE JULIO MODALITY 1 1/> AREAS TRACTION MECHANICA L CHIROPRAC 63768 ECSALANTE JULIO ESCALANTE JULIO TIC 1 MANIPLTV TX EXTRASPIN AL 1/> REGION APPLICATI 32931 ESCALANTE JULIO ESCALANTE JULIO ON 1 MODALITY 1/> AREAS HOT/COLD PACKS THERAPEUT 25008 ESCALANTE JULIO ESCALANTE JULIO IC PX 1/> 1 AREAS EACH 15 MIN EXERCISES THERAPEUT 77271 ESCALANTE JULIO ESCALANTE JULIO IC PX 1/> 1 AREAS EACH 15 MIN EXERCISES APPLICATI 22718 ESCALANTE JULIO ESCALANTE JULIO ON 1 MODALITY 1/> AREAS HOT/COLD PACKS CHIROPRAC 60408 ESCALANTE JULIO ESCALANTE JULIO TIC 1 MANIPLTV TX EXTRASPIN AL 1/> REGION APPL 19774 ESCALANTE JULIO ESCALANTE JULIO MODALITY 1 1/> AREAS TRACTION MECHANICA L APPL 50647 ESCALANTE JULIO ESCALANTE JULIO MODALITY 1 1/> AREAS ELEC STIMJ UNATTENDE D CHIROPRAC 28963 ESCALANTE JULIO ESCALANTE JULIO TIC 1 MANIPULAT [place] SPINAL 3-4 REGIONS MANUAL 10075 ESCALANTE JULIO ESCALANTE JULIO THERAPY 1 TQS 1/> REGIONS EACH 15 MINUTES APPLICATI 63133 ESCALANTE JULIO ESCALANTE JULIO ON 1 MODALITY 1/> AREAS HOT/COLD PACKS APPL 69821 ESCALANTE JULIO ESCALANTE JULIO MODALITY 1 1/> AREAS TRACTION MECHANICA L MANUAL 31725 ESCALANTE JULIO ESCALANTE JULIO THERAPY 1 TQS 1/> REGIONS EACH 15 MINUTES CHIROPRAC 50455 ESCALANTE JULIO ESCALANTE JULIO TIC 1 MANIPLTV TX EXTRASPIN AL 1/> REGION CHIROPRAC 43428 ESCALANTE JULIO ESCALANTE JULIO TIC 1 [place] SPINAL 3-4 REGIONS APPL 33539 ESCALANTE JULIO ESCALANTE JULIO MODALITY 1 1/> AREAS ELEC STIMJ UNATTENDE D THERAPEUT 42253 ESCALANTE JULIO ESCALANTE JULIO IC PX 1/> 1 AREAS EACH 15 MIN EXERCISES THERAPEUT 26205 ESCALANTE JULIO ESCALANTE JULIO IC PX 1/> 1 AREAS EACH 15 MIN EXERCISES CHIROPRAC 09599 ESCALANTE JULIO ESCALANTE JULIO TIC 1 MANIP[place]AT [place] SPINAL 3-4 REGIONS APPL 00858 ESCALANTE JULIO ESCALANTE JULIO MODALITY 1 1/> AREAS ELEC STIMJ UNATTENDE D CHIROPRA 93876 ESCALANTE JULIO ESCALANTE JULIO TIC 1 MANIPLTV TX EXTRASPIN AL 1/> REGION MANUAL 75488 ESCALANTE JULIO ESCALANTE JULIO THERAPY 1 TQS 1/> REGIONS EACH 15 MINUTES APPL 90845 ESCALANTE JULIO ESCALANTE JULIO MODALITY 1 1/> AREAS TRACTION MECHANICA L APPLICATI 38798 ESCALANTE JULIO ESCALANTE JULIO ON 1 MODALITY 1/> AREAS HOT/COLD PACKS APPLICATI 36780 ESCALANTE JULIO ESCALANTE JULIO ON 1 MODALITY 1/> AREAS HOT/COLD PACKS APPL 50984 ESCALANTE JULIO ESCALANTE JULIO MODALITY 1 1/> AREAS TRACTION MECHANICA L MANUAL 01186 ESCALANTE JULIO ESCALANTE JULIO THERAPY 1 TQS 1/> REGIONS EACH 15 MINUTES CHIROPRAC 62588 ESCALANTE JULIO ESCALANTE JULIO TIC 1 MANIPLTV TX EXTRASPIN AL 1/> REGION APPL 56050 ESCALANTE JULIO ESCALANTE JULIO MODALITY 1 1/> AREAS ELEC STIMJ UNATTENDE D CHIROPRAC 83170 ESCALANTE JULIO ESCALANTE JULIO TIC 1 MANIPULAT [place] SPINAL 3-4 REGIONS THERAPEUT 76000 ESCALANTE JULIO ESCALANTE JULIO IC PX 1/> 1 AREAS EACH 15 MIN EXERCISES THERAPEUT 98060 ESCALANTE JULIO ESCALANTE JULIO IC PX 1/> 1 AREAS EACH 15 MIN EXERCISES CHIROPRAC 34223 ESCALANTE JULIO ESCALANTE JULIO TIC 1 MANIPULAT [place] SPINAL 3-4 REGIONS APPL 66642 ESCALANTE JULIO ESCALANTE JULIO MODALITY 1 1/> AREAS ELEC STIMJ UNATTENDE D CHIROPRAC 75909 ESCALANTE JULIO ESCALANTE JULIO TIC 1 MANIPLTV TX EXTRASPIN AL 1/> REGION MANUAL 69933 ESCALANTE JULIO ESCALANTE JULIO THERAPY 1 TQS 1/> REGIONS EACH 15 MINUTES APPL 93999 ESCALANTE JULIO ESCALANTE JULIO MODALITY 1 1/> AREAS TRACTION MECHANICA L APPLICATI 56328 ESCALANTE JULIO ESCALANTE JULIO ON 1 MODALITY 1/> AREAS HOT/COLD PACKS APPLICATI 99090 ESCALANTE JULIO ESCALANTE JULIO ON 1 MODALITY 1/> AREAS HOT/COLD PACKS RADEX 65687 [place] GERALD JAM FOOT 1 MEDICAL COMPLETE SERV MINIMUM 3 FOUNDATIO VIEWS APPL 28420 ESCALANTE JULIO ESCALANTE JULIO MODALITY 1 1/> AREAS TRACTION MECHANICA L MANUAL 50691 ESCALANTE JULIO ESCALANTE JULIO THERAPY 1 TQS 1/> REGIONS EACH 15 MINUTES CHIROPRAC 27196 ESCALANTE JULIO ESCALANTE JULIO TIC 1 MANIPLTV TX EXTRASPIN AL 1/> REGION APPL 04228 ESCALANTE JULIO ESCALANTE JULIO MODALITY 1 1/> AREAS ELEC STIMJ UNATTENDE D CHIROPRAC 46026 ESCALANTE JULIO ESCALANTE JULIO TIC 1 MANIPULAT [place] SPINAL 3-4 REGIONS THERAPEUT 22699 ESCALANTE JULIO ESCALANTE JULIO IC PX 1/> 1 AREAS EACH 15 MIN EXERCISES RADEX 36061 [facility] [place] TRISH FOOT 1 RADIOLOGY RHO COMPLETE MINIMUM 3 VIEWS MANUAL 06372 ESCALANTE JULIO ESCALANTE JULIO THERAPY 1 TQS 1/> REGIONS EACH 15 MINUTES APPL 17665 ESCALANTE JULIO ESCALANTE JULIO MODALITY 1 1/> AREAS TRACTION MECHANICA L APPL 70663 ESCALANTE JULIO ESCALANTE JULIO MODALITY 1 1/> AREAS ELEC STIMJ UNATTENDE D CHIROPRAC 54567 ESCALANTE JULIO ESCALANTE JULIO TIC 1 MANIPULAT [place] SPINAL 3-4 REGIONS CHIROPRAC 49391 ESCALANTE JULIO ESCALANTE JULIO TIC 1 MANIPLTV TX EXTRASPIN AL 1/> REGION THERAPEUT 05923 ESCALANTE JULIO ESCALANTE JULIO IC PX 1/> 1 AREAS EACH 15 MIN EXERCISES APPLICATI 98221 ESCALANTE JULIO ESCALANTE JULIO ON 1 MODALITY 1/> AREAS HOT/COLD PACKS APPLICATI 37891 ESCALANTE JULIO ESCALANTE JULIO ON 1 MODALITY 1/> AREAS HOT/COLD PACKS THERAPEUT 91668 ESCALANTE JULIO ESCAALNTE JULIO IC PX 1/> 1 AREAS EACH 15 MIN EXERCISES CHIROPRAC 67621 ESCALANTE JULIO ESCALANTE JULIO TIC 1 MANIPLTV TX EXTRASPIN AL 1/> REGION APPL 68279 ESCALANTE JULIO ESCALANTE JULIO MODALITY 1 1/> AREAS ELEC STIMJ UNATTENDE D APPL 34961 ESCALANTE JULIO ESCALANTE JULIO MODALITY 1 1/> AREAS TRACTION MECHANICA L CHIROPRAC 47999 ESCALANTE JULIO ESCALANTE JULIO TIC 1 MANIPULAT [place] SPINAL 3-4 REGIONS MANUAL 21406 ESCALANTE JULIO ESCALANTE JULIO THERAPY 1 TQS 1/> REGIONS EACH 15 MINUTES MANUAL 42420 ESCALANTE JULIO ESCALANTE JULIO THERAPY 1 TQS 1/> REGIONS EACH 15 MINUTES APPL 01573 ESCALANTE JULIO ESCALANTE JULIO MODALITY 1 1/> AREAS TRACTION MECHANICA L CHIROPRAC 03005 ESCALANTE JULIO ESCALANTE JULIO TIC 1 MANIPULAT [place] SPINAL 3-4 REGIONS APPL 88955 ESCALANTE JULIO ESCALANTE JULIO MODALITY 1 1/> AREAS ELEC STIMJ UNATTENDE D CHIROPRAC 68855 ESCALANTE JULIO ESCALANTE JULIO TIC 1 MANIPLTV TX EXTRASPIN AL 1/> REGION THERAPEUT 80643 ESCALANTE JULIO ESCALANTE JULIO IC PX 1/> 1 AREAS EACH 15 MIN EXERCISES APPLICATI 85853 ESCALANTE JULIO ESCALANTE JULIO ON 1 MODALITY 1/> AREAS HOT/COLD PACKS RADEX 04051 [facility] [place] KOSTELIC SPINE 1 RADIOLOGY VINICIO LUMBOSACR AL 2/3 VIEWS APPLICATI 32810 ESCALANTE JULIO ESCALANTE JULIO ON 1 MODALITY 1/> AREAS HOT/COLD PACKS THERAPEUT 68734 ESCALANTE JULIO ESCALANTE JULIO IC PX 1/> 1 AREAS EACH 15 MIN EXERCISES CHIROPRAC 51902 ESCALANTE JULIO ESCALANTE JULIO TIC 1 MANIPLTV TX EXTRASPIN AL 1/> REGION APPL 70738 ESCALANTE JULIO ESCALANTE JULIO MODALITY 1 1/> AREAS ELEC STIMJ UNATTENDE D CHIROPRAC 00685 ESCALANTE JULIO ESCALANTE JULIO TIC 1 MANIPULAT [place] SPINAL 3-4 REGIONS APPL 25954 ESCALANTE JULIO ESCALANTE JULIO MODALITY 1 1/> AREAS TRACTION MECHANICA L MANUAL 02293 ESCALANTE JULIO ESCALANTE JULIO THERAPY 1 TQS 1/> REGIONS EACH 15 MINUTES MANUAL 92893 ESCALANTE JULIO ESCALANTE JULIO THERAPY 1 TQS 1/> REGIONS EACH 15 MINUTES APPL 26955 ESCALANTE JULIO ESCALANTE JULIO MODALITY 1 1/> AREAS TRACTION MECHANICA L CHIROPRAC 49816 ESCALANTE JULIO ESCALANTE JULIO TIC 1 MANIPULAT [place] SPINAL 3-4 REGIONS APPL 47314 ESCALANTE JULIO ESCALANTE JULIO MODALITY 1 1/> AREAS ELEC STIMJ UNATTENDE D CHIROPRAC 46599 ESCALANTE JULIO ESCALANTE JULIO TIC 1 MANIPLTV TX EXTRASPIN AL 1/> REGION THERAPEUT 45431 ESCALANTE JULIO ESCALANTE JULIO IC PX 1/> 1 AREAS EACH 15 MIN EXERCISES APPLICATI 92157 ESCALANTE JULIO ESCALANTE JULIO ON 1 MODALITY 1/> AREAS HOT/COLD PACKS APPLICATI 52395 ESCALANTE JULIO ESCALANTE JULIO ON 1 MODALITY 1/> AREAS HOT/COLD PACKS THERAPEUT 82908 ESCALANTE JULIO ESCALANTE JULIO IC PX 1/> 1 AREAS EACH 15 MIN EXERCISES CHIROPRAC 51894 ESCALANTE JULIO ESCALANTE JULIO TIC 1 MANIPLTV TX EXTRASPIN AL 1/> REGION APPL 56807 ESCALANTE JULIO ESCALANTE JULIO MODALITY 1 1/> AREAS ELEC STIMJ UNATTENDE D CHIROPRAC 89518 ESCALANTE JULIO ESCALANTE JULIO TIC 1 MANIPULAT [place] SPINAL 3-4 REGIONS APPL 35747 ESCALANTE JULIO ESCALANTE JULIO MODALITY 1 1/> AREAS TRACTION MECHANICA L MANUAL 35326 ESCALANTE JULIO ESCALANTE JULIO THERAPY 1 TQS 1/> REGIONS EACH 15 MINUTES APPL 35586 ESCALANTE JULIO ESCALANTE JULIO MODALITY 1 1/> AREAS TRACTION MECHANICA L MANUAL 95053 ESCALANTE JULIO ESCALANTE JULIO THERAPY 1 TQS 1/> REGIONS EACH 15 MINUTES CHIROPRAC 36746 ESCALANTE JULIO ESCALANTE JULIO TIC 1 MANIPULAT [place] SPINAL 3-4 REGIONS APPL 75988 ESCALANTE JULIO ESCALANTE JULIO MODALITY 1 1/> AREAS ELEC STIMJ UNATTENDE D CHIROPRAC 22690 ESCALANTE JULIO ESCALANTE JULIO TIC 1 MANIPLTV TX EXTRASPIN AL 1/> REGION THERAPEUT 85098 ESCALANTE JULIO ESCALANTE JULIO IC PX 1/> 1 AREAS EACH 15 MIN EXERCISES APPLICATI 38336 ESCALANTE JULIO ESCALANTE JULIO ON 1 MODALITY 1/> AREAS HOT/COLD PACKS RADIOLOGI 62363 [facility] [place] OMAR MAT C EXAM 1 RADIOLOGY CHEST 2 VIEWS FRONTAL&L ATERAL RADEX 63319 [facility] SPINE 1 Y Y THORACIC [facility] 2 VIEWS RADEX 82230 [facility] SPINE 1 Y Y THORACIC [facility] 2 VIEWS RADIOLOGI 78592 [facility] C EXAM 1 Y Y CHEST 2 HOSPITAL HOSPITAL VIEWS FRONTAL&L ATERAL RADEX 29129 [facility] [place] LASHAE ELBOW 1 RADIOLOGY DANNI COMPLETE MINIMUM 3 VIEWS RPR 94025 VENGUSWAM VENGUSWAM UMBILICAL 1 Y CATARINA Y CATARINA HRNA 5 YRS/> [place] L[place] [address] CHIPPS MOSES JAM SURG 1 MARLON & PATHOLOGY TING GROSS&CONCHIS ROSCOPIC EXAM SIMPLE 85057 YARIEL GALO REPAIR 1 EMERGENCY CHAU SCALP/NEC SERVICES K/AX/MAIRA T/TRUNK 2.5CM/< URNLS DIP 02307 [facility] 1 N N STICK/TAB [facility] LET HOSPITA HOSPITA REAGENT AUTO MICROSCOP Y THERAPEUT 29239 [facility] IC [address] [facility] TIC/DX HOSPITA HOSPITA INJECTION SUBQ/IM ECG 87112 [facility] ROUTINE [address] [facility] W/LEAST HOSPITA HOSPITA 12 LDS TRCG ONLY W/O I&R BLOOD 69046 [facility] COUNT [address] [facility] MCRSCP HOSPITA HOSPITA W/MNL DIFRNTL WBC COUNT THROMBOPL 75112 [facility] ASTIN [address] [facility] PARTIAL HOSPITA HOSPITA PLASMA/WH OLE BLOOD RADIOLOGI 14894 [facility] GRACIE GE C EXAM 1 RADIOLOGY CHEST 2 VIEWS FRONTAL&L ATERAL BLOOD 24597 [facility] COUNT [address] [facility] AUTOMATED HOSPITA HOSPITA PROTHROMB 53910 [facility] IN TIME [address] [facility] HOSPITA HOSPITA COLLECTIO 59356 [facility] N VENOUS [address] [facility] VENIPUNCT HOSPITA HOSPITA URE BASIC 16931 [facility] METABOLIC [address] [facility] CALCIUM HOSPITA HOSPITA TOTAL BLOOD 87541 [facility] DANNIELLE OCCULT 1 N URGENT ABD PEROXIDAS CARE E ACTV QUAL FECES 1 DETER IMMUNOASS 84581 [facility] DANNIELLE AY NFCT 1 N URGENT ABD AGT ANTB CARE QUAL/SEMI LOUIE 1 STEP SERVICES 33484 [facility] DANNIELLE PROVIDED 1 N URGENT ABD OFFICE CARE OTH/THN REG SCHED HOURS MRI ANY 05596 [facility] GRACIE GE JT LOWER 1 RADIOLOGY EXTREM W/O CONTRAST MATRL SERVICES 72044 [facility] DANNIELLE PROVIDED 1 N URGENT ABD OFFICE CARE OTH/THN REG SCHED HOURS ACUTE 17415 [facility] HEPATITIS [address] [facility] HOSPITA HOSPITA HEPATITIS 73467 [facility] CORE [address] [facility] HBCAB HOSPITA HOSPITA TOTAL HEPATITIS 99211 [facility] SURF [address] [facility] HBSAB HOSPITA HOSPITA COLLECTIO 74991 [facility] N VENOUS [address] [facility] VENIPUNCT HOSPITA HOSPITA URE HEPATITIS 91086 [facility] A [address] [facility] HAAB HOSPITA HOSPITA RADIOLOGI 16607 [facility] [place] OMAR MAT C 1 RADIOLOGY EXAMINATI ON KNEE 3 VIEWS THERAPEUT 40854 [facility] DANNIELLE IC 1 N URGENT ABD PROPHYLAC CARE TIC/DX INJECTION SUBQ/IM ECG 31511 [facility] ROUTINE 0 ANNITA ADR ECG CARDIOLOG W/LEAST Y CLINIC 12 [facility] W/I&R COLLECTIO 10022 [facility] N VENOUS [address] [facility] HOSPITA URE ACUTE 82805 [facility] HEPATITIS [address] [facility] [place] [address] [facility] GRACIE GE ABDOMINAL 0 RADIOLOGY REAL TIME W/IMAGE LIMITED LIPID 76199 [facility] PANEL [address] [facility] HOSPITA HOSPITA COLLECTIO 65987 [facility] N VENOUS [address] [facility] [place] [address] [facility] THYROID [address] [facility] NG HOSPITA HOSPITA HORMONE TSH COMPREHEN 85916 [facility] SIVE 0 N N METABOLIC [facility] HOSPITA HOSPITA SERVICES 46562 [facility] DANNIELLE PROVIDED 0 N URGENT ABD OFFICE CARE OTH/THN REG SCHED HOURS MRI 34705 [facility] [place] TRISH SPINAL 0 RADIOLOGY RHO CANAL CERVICAL W/O CONTRAST MATRL RADEX 05467 [place] CELE ELBOW 0 MEDICAL MARIO COMPLETE IMAGING MINIMUM 3 ASS VIEWS SERVICES 24452 [facility] DANNIELLE PROVIDED 0 N URGENT ABD OFFICE CARE OTH/THN REG SCHED HOURS COMPREHEN 57967 [facility] SIVE 0 [facility] METABOLIC PANEL GLUCOSE 21504 [facility]AT 0 N URGENT ABD [place] BLOOD CARE XCPT REAGENT STRIP HEMOGLOBI 83712 [facility] N 0 [employer] [facility] GLYCOSYLA THERESA A1C BLOOD 03926 [facility] COUNT 0 [facility] COMPLETE AUTO&[place] [address] [facility] FOLIC 0 [employer] [facility] ACID SERUM NDL EMG 1 65926 GARCÍA TRA GARCÍA TRA XTR W/WO 0 RELATED PARASPINA L AREAS NRV CNDJ 89296 GARCÍA TRA GARCÍA TRA AMPLT&LAT 0 NCY EA NRV MOTR W/O F-WAVE STD NRV CNDJ 42038 GARCÍA TRA GARCÍA TRA AMPLT&LAT 0 ENCY EA NRV MOTOR W/F-WAVE STD NRV CNDJ 62469 GARCÍA TRA GARCÍA TRA AMPLITUDE 0 & LATENCY EACH NERVE SENSORY RADEX 35076 [facility] ESSIEKai ELBOW 0 N N COMPLETE COMMUNITY COMMUNITY MINIMUM 3 HOSPITA HOSPITA VIEWS RADEX 77235 [facility] [place] OMAR MAT HAND 0 RADIOLOGY MINIMUM 3 VIEWS RADEX 78357 [facility] [place] OMAR MAT SPINE 0 RADIOLOGY LUMBOSACR AL 2/3 VIEWS RADEX 08893 [facility] [place] OMAR MAT WRIST 0 RADIOLOGY COMPLETE MINIM[address] [place] [address] [facility] [place] OMAR MAT ABDOMEN 0 RADIOLOGY W/CONTRAS T MATERIAL CT PELVIS 14599 [facility] [place] OMAR MAT 0 RADIOLOGY W/CONTRAS T MATERIAL RADEX 77498 [place] NICKELS SPINE 0 MEDICAL REMINGTON LUMBOSACR SERV AL 2/3 FOUNDATIO VIEWS RADEX 02155 [place] BNADAR SPINE 0 MEDICAL STEPH LUMBOSACR IMAGING AL ASS MINIMUM 4 VIEWS RADEX 65898 [place] BANDAR SPINE 0 MEDICAL STEPH THORACIC IMAGING 3 VIEWS ASS RADEX 02406 [place] BANDAR SPINE 0 MEDICAL STEPH CERVICAL IMAGING 6 OR MORE ASS VIEWS RADEX TOE 88761 [place] CELE MINIMUM 0 MEDICAL MARIO 2 VIEWS IMAGING ASS RADEX 20939 [facility] [place] OMAR, FOOT 0 RADIOLOGY WILLIAM D COMPLETE MINIMUM 3 VIEWS URNLS DIP 62373 RAMÓN MELGAR 0 [facility] STICK/TAB INC INC LET REAGENT AUTO MICROSCOP Y URNLS DIP 97306 [facility] 0 [facility] STICKTAB [facility] LET REAGENT AUTO MICROSCOP Y COLLECTIO 52211 [facility] N VENOUS 0 [facility] VENIPUNCT URE SUSCEPTIB 63094 [facility] LTY STDY 0 [facility] IAL MICRO/AGA R DILUTJ BLOOD 31764 [facility] COUNT 0 [facility] AUTO&AUTO DIFRNTL WBC CUL BACT 51070 [facility] XCPT 0 [facility] BLOOD/STO OL AEROBIC ISOL CULTURE 53188 [facility] BACTERIAL 0 [facility] QUANTTATI VE COLONY COUNT URINE BASIC 59581 [facility] METABOLIC 0 [facility] CALCIUM TOTAL RADEX 53602 [facility] [place] TRISH, ELBOW 0 RADIOLOGY HALLIE G COMPLETE MINIMUM 3 VIEWS DUP-SCAN 30567 [facility] [place] WESTER[place] XTR VEINS 0 RADIOLOGY LD, A D UNILATERA L/LIMITED STUDY RADEX 07326 [facility] [place] MARTINEZ, G ELBOW 2 0 RADIOLOGY T VIEWS NONINVASI 25087 [facility] VE 0 Y Y EAR/PULSE HOSPITAL HOSPITAL OXIMETRY SINGLE DETER NONINVASI 32258 [facility] Y Y E[facility]/PULSE HOSPITAL HOSPITAL OXIMETRY SINGLE DETER RADEX 89803 [facility] NICOLAS, SACRUM & 0 Y OF DIANE A [place] MINIMUM 2 HOSPITAL VIEWS RADEX TOE 69354 [facility] [place] OMAR, MINIMUM 0 RADIOLOGY WILLIAM D 2 VIEWS RADEX 99604 [place] FRANK, FOOT 0 MEDICAL VALERIE N COMPLETE SERV MINIMUM 3 FOUNDATIO VIEWS CUL BACT 22528 JENNIFER RODRIGUEZ XCPT 9 [facility] BLOOD/STO OL AEROBIC ISOL SUSCEPTIB 10785 JENNIFER RODRIGUEZ LTY STDY 9 [facility] IAL MICRO/AGA R DILUTJ THERAPEUT [address] PROPHYLAC TIC/DX INJECTION SUBQ/IM RADEX 24589 [facility] GRACIE MASTERS, SPINE 9 RADIOLOGY TOBY A LUMBOSACR AL 2/3 VIEWS INJECTION J1885 [address] KETOROLAC TROMETHAM INE PER 15 MG RADEX 27467 [facility] GRACIE UREÑA ANKLE 9 RADIOLOGY J COMPLETE MINIMUM 3 VIEWS RADIOLOGI 98516 [facility] Lydia ANDUJAR 9 RADIOLOGY J EXAMINATI ON TIBIA & FIBULA 2 VIEWS STRAPPING 33441 [facility], ANKLE 9 JEFFY SMITH &/FOOT EMERGENCY A PHYS INC ANES 25229 BRUNA SY 9 ANESTHESI MIKE J MUSC & A GROUP NRV HEAD PSC NECK&POST ERIOR TRUNK EXCISION 02826 URBY BELTRAN PILONIDADigna 9 , QUITA , QUITA CYST/SINU S SIMPLE LEVEL III 25042 PATHOLOGY PATHOLOGY SURG 9 & & PATHOLOGY CYTOLOGY CYTOLOGY LAB LAB GROSS&CONCHIS ROSCOPIC EXAM COLLECTIO 10747 JENNIFER RODRIGUEZ N VENOUS 9 [facility] VENIPUNCT URE BLOOD 29997 JENNIFER RODRIGUEZ COUNT 9 [facility] AUTO&AUTO DIFRNTL WBC BASIC 48031 JENNIFER RODRIGUEZ METABOLIC 9 [facility] CALCIUM TOTAL SUSCEPTIB 01914 RAMÓN MELGAR LTY STDY 9 [facility] ANTIMICRB INC INC IAL MICRO/AGA R DILUTJ CUL BACT 69766 RAMÓN MELGAR XCPT 9 [facility] URINE INC INC BLOOD/STO OL AEROBIC ISOL CUL BACT 19931 RAMÓN MELGAR AEROBIC 9 [facility] ADDL INC INC METHS DEFINITIV E EA ISOL APPLICATI 07314 [facility] SHORT 9 JEFFY W E LEG EMERGENCY SPLINT PHYS INC CALF FOOT RADEX 62684 [facility] ANKLE [address] [place] [address] COMPLETE MINIMUM 3 VIEWS RADEX 36755 [facility] FOOT [address] [place] [address] COMPLETE MINIMUM 3 VIEWS RADEX 93812 [facility] GRACIE SCALF, SPINE 9 RADIOLOGY BOY E LUMBOSACR AL 2/3 VIEWS RADEX 69048 [facility] [place] [place] SPINE 9 MEDICAL RUY LUMBOSACR IMAGING AL ASSOCIATE MINIMUM 4 S VIEWS RADIOLOGI 84526 [place] CELE C 9 MEDICAL RUY EXAMINATI IMAGING ON PELVIS ASSOCIATE 1/2 S VIEWS BLOOD 73511 RAMÓN MELGAR COUNT 9 [facility] COMPLETE INC INC AUTO&AUTO DIFRNTL WBC 3D 16401 [place] BANDAR, RENDERING 9 MEDICAL PITER P IMAGING W/INTERP& ASSOCIATE POSTPROC S DIFF WORK STATION URNLS DIP 33601 RAMÓN MELGAR 9 [facility] STICK/TAB INC INC LET REAGENT AUTO MICROSCOP Y CT PELVIS 89578 RAMÓN MELGAR W/O 9 [facility] [address] RAMÓN RAMÓN ABDOMEN 9 [facility] W/O INC INC CONTRAST MATERIAL BASIC 11359 RAMÓN RAMÓN METABOLIC 9 [facility] PANEL INC INC CALCIUM TOTAL THERAPEUT 58155 [facility] IC [address] [place] [address] HOSPITAL PROPHYLAC TIC/DX INJECTION SUBQ/IM CUL BACT [address] URINE BLOOD/STO OL AEROBIC ISOL SMR PRIM [address] GRAM/GIEM SA STAIN BCT FUNGI/GAYATRI L RADEX 55409 [facility] [place] NIRANJAN, SPINE 9 RADIOLOGY J LUMBOSACR AL 2/3 VIEWS EXCISION 50579 Timur AMIN PILONIDAL 9 MEDICAL D SERV CYST/SINU FOUNDATIO S SIMPLE INJECTION J1100 [facility] 9 Y Y DEXAMETHO [facility] SONE SODIUM PHOSPHATE 1 MG INJECTION J2175 [facility] 9 Y Y MEPERIDIN [facility] E HCL PER 100 MG RINGERS J7120 [facility] LACTATE 9 Y Y INFUSION [facility] UP TO 1000 CC LEVEL III 51729 [facility] SURG 9 Y Y PATHOLOGY [facility] GROSS&CONCHIS ROSCOPIC EXAM INJECTION J2250 [facility] 9 Y Y MIDAZOLAM [facility] HCL PER 1 MG INJECTION J2270 [facility] MORPHINE 9 Y Y SULFATE [facility] UP TO 10 MG EXCISION 91144 [facility] PILONIDAL 9 Y Y [facility] CYST/SINU S EXTENSIVE ANES 50628 BRUNA MANCILLA 9 MEDICAL RUI [facility] SERVICES NRV HEAD NECK&POST ERIOR TRUNK INJECTION J3010 [facility] FENTANYL 9 Y Y CITRATE [facility] 0.1 MG UNCLASSIF J3490 [facility] IED DRUGS 9 Y Y [facility] INJECTION J2405 [facility] MG HEPATIC 41879 [facility] [place] [facility] [place] [facility] PANEL INJECTION J2765 [facility] 9 Y Y METOCLOPR [facility] AMIDE HCL UP TO 10 MG INFUSION [id number] [facility] NORMAL 9 Y Y SALINE [facility] SOLUTION 1000 CC INJECTION J1200 [facility] 9 Y Y DIPHENHYD [facility] RAMINE HCL UP TO 50 MG INJECTION [id number] [facility] 9 Y Y KETOROLAC [facility] TROMETHAM INE PER 15 MG MYOCRD 95504 CARDIOLOG ROSY SUN STD 8 Y EMILIE Mckeon WALL ASSOCIATE MOTION S OF QUAL/LOUIE [place] STD MYOCRD 59370 CARDIOLOG ROSY SUN IMG 8 Y EMILIE Mckeon TOMOG ASSOCIATE SPECT FUR BUYER S OF STD [place] MYOCRD 87270 CARDIOLOG DINO, PRFUJ STD 8 Y EMILIE Mckeon EJEC FXJ ASSOCIATE S OF [place] CV STRS 62730 CARDIOLOG DINO, TST 8 Y EMILIE Mckeon XERS&/OR ASSOCIATE RX CONT S OF ECG [place] W/SI&R BLOOD 83869 [facility] COUNT 8 N N [facility] DIFRNTL WBC LIPID 83541 [facility] PANEL 8 N N [facility] COL[facility] 04678 [facility] N VENOUS 8 N N BLOOD [facility] URE COMPREHEN 11129 [facility] SIVE 8 N N [facility] COMPREHEN 03963 OFFICE OFFICE SIV 8 [facility] METABOLIC DIAGNOSTI DIAGNOSTI PANEL C C SERVICES SERVICES ECG 53878 CARDIOLOG DINO, ROUTINE 8 Y EMILIE Mckeon ECG ASSOCIATE W/LEAST S OF 12 LDS [place] W/I&R ECG 86772 [facility] ROUTINE [address] [facility] W/[facility] 12 [facility] TRCG ONLY W/O I&R BLOOD 23014 [facility] 8 N N [facility] [place] [address] [facility] TROPONIN [address] [facility] CREATINE 20986 [facility] KINASE 8 N N TOTAL [facility] COLLECTIO 94213 [facility] N VENOUS 8 N N BLOOD [facility] URE ECG 41385 [facility] CELLAROSI ROUTINE 8 JEFFY - YORBA, ECG EMERGENCY BLANCO W/LEAST PHYS INC M 12 [facility] I&R ONLY CREATINE 54970 [facility] KINASE MB 8 N N FRACTION [facility] RADIOLOGI 05852 [facility] CELLAROSI C 8 JEFFY - YORBA, EXAMINATI EMERGENCY BLANCO ON CHEST PHYS INC M [place] FRONTAL INITIAL 26891 [facility] OBSERVATI 8 N N ON [facility] 30 MINUTES COMPREHEN 58593 [facility] SIVE 8 N N METABOLIC [facility] AMB [id number] [facility] SERVICE 8 MARIA G [facility] EMERGENCY TRANSPORT LEVEL 1 GROUND A0425 [facility] MILEAGE 8 MARIA G [place] PER CO EMS CO EMS STATUTE MILE RADIOLOGI 21299 [facility] AHMED, C 8 JEFFY SMITH EXAMINATI EMERGENCY A ON CHEST PHYS INC [place] FRONTAL ECG 41791 [facility] AHMED, ROUTINE 8 JEFFY SMITH ECG EMERGENCY A W/LEAST PHYS INC 12 LDS I&R ONLY Encounters Encounter Start End Date Code Location Performer Type Date EMERGENCY 37582 [facility] [place] 7 7 [facility] HIGH/URGE NT SEVERITY EMERGENCY 93081 RAMÓN 7 7 [facility] DEPARTMEN INC T VISIT LOW/MODER SEVERITY HOSPITAL RAMÓN - 7 7 [facility] OUTPATIEN INC T EMERGENCY 35578 RAMÓN 7 7 [facility] DEPARTMEN INC T VISIT LOW/MODER SEVERITY EMERGENCY 59296 [facility] DIAL 7 7 [facility] T VISIT MODERATE SEVERITY HOSPITAL RAMÓN - 7 7 [facility] OUTPATIEN INC T EMERGENCY 09951 [facility] CHARLY 7 7 JEFFY DEPARTMEN EMERGENCY T VISIT PHYS HIGH/URGE NT SEVERITY EMERGENCY 19868 [facility] CALDERON 7 7 [facility] T VISIT MODERATE SEVERITY EMERGENCY 08313 RAMÓN 7 7 [facility] DEPARTMEN INC T VISIT LOW/MODER SEVERITY HOSPITAL RAMÓN - 7 7 [facility] OUTPATIEN INC T EMERGENCY 26891 WALLY STEPHENSON 7 7 NURSE DEPARTMEN PRACTITIO T VISIT NER GR HIGH/URGE NT SEVERITY HOSPITAL [facility] - 7 7 [facility] OUT[facility]EN [facility] HOSPITALS OFFICE 65952 [facility] 7 7 [place] T NEW 30 PHYSICIAN MINUTES S ASSIST EMERGENCY 36773 [facility] [place] 7 7 [place] OF [place] DEPARTMEN PHYSICIAN T VISIT S MODERATE SEVERITY HOSPITAL [facility] - 7 7 [facility]OSPITALS OFFICE 87559 [facility]ENNIFER GRUBER [facility] 7 7 PHYSICIAN T VISIT PRACTICE 15 L MINUTES OFFICE 08689 [facility]ENNIFER GRUBER [facility] 7 7 PHYSICIAN T NEW 30 PRACTICE MINUTES L OFFICE 57524 GRACIE HILTON [facility] 7 7 MEDICAL T NEW 45 SERV MINUTES FOUNDATIO N EMERGENCY 39998 [facility] 7 7 JEFFY DEPARTMEN EMERGENCY T VISIT PHYS MODERATE SEVERITY HOSPITAL - 6 6 [facility] OUTPATIEN [facility] T HOSPITALS EMERGENCY 00479 GRACIE DELAROSA 6 6 MEDICAL DEPARTMEN SERV T VISIT FOUNDATIO MODERATE N SEVERITY EMERGENCY 22616 6 6 [facility] DEPARTMEN E T VISIT HOSPITALS HIGH/URGE NT SEVERITY EMERGENCY 60662 6 6 [facility] DEPARTMEN E T VISIT HOSPITALS HIGH/URGE NT SEVERITY HOSPITAL - 6 6 [facility] OUTPATIEN E T HOSPITALS EMERGENCY 21020 [facility] 6 6 [place] DEPARTMEN PHYSICIAN T VISIT S ASSIST LOW/MODER SEVERITY HOSPITAL [facility] 6 6 N OUTPATIEN COMMUNTIY T HOSPITA EMERGENCY 22256 [facility] 6 6 JEFFY DEPARTMEN EMERGENCY T VISIT PHYS HIGH/URGE NT SEVERITY EMERGENCY 68355 GRACIE CHAU 6 6 MEDICAL DEPARTMEN SERV T VISIT FOUNDATIO LOW/MODER N SEVERITY EMERGENCY 87102 6 6 [facility] DEPARTMEN E T VISIT HOSPITALS LOW/MODER SEVERITY HOSPITAL [facility] - 6 6 [facility] OUTPATIEN [facility] T HOSPITALS OFFICE 03654 JENNIFER MALU YOU OUTPATIEN 6 6 PHYSICIAN T NEW 30 PRACTICE MINUTES L EMERGENCY 78314 GRACIE RUELAS CARL 6 6 MEDICAL DEPARTMEN SERV T VISIT FOUNDATIO MODERATE N SEVERITY EMERGENCY 74124 6 6 [facility] DEPARTMEN E T VISIT HOSPITALS LOW/MODER SEVERITY [facility]OSPITAL [facility] - 6 6 [facility] OUTPATIEN E T HOSPITALS EMERGENCY 24737 RAMÓN 6 6 [facility] DEPARTMEN INC T VISIT LIMITED/M INOR PROB HOSPITAL RAMÓN - 6 6 [facility] OUTPATIEN INC T EMERGENCY 58091 [facility] CALDERON 6 6 PHYSIC[facility] T VISIT MODERATE SEVERITY EMERGENCY 58251 [facility] 6 6 JEFFY CARTAGENA DEPARTMEN EMERGENCY T VISIT PHYS MODERATE SEVERITY EMERGENCY 41712 RAMÓN 6 6 [facility] DEPARTMEN INC T VISIT LIMITED/M INOR PROB EMERGENCY 35413 [facility] [place]LL[place] 6 6 PHYSICIAN Priya GONCALVES DEPARTMEN S, PLLC T VISIT MODERATE SEVERITY HOSPITAL RAMÓN - 6 6 [facility] OUTPATIEN INC T EMERGENCY 72594 [facility] 6 6 JEFFY GASCA DEPARTMEN EMERGENCY T VISIT PHYS HIGH/URGE NT SEVERITY EMERGENCY 71156 RAMÓN 6 6 [facility] DEPARTMEN INC T VISIT LIMITED/M INOR PROB EMERGENCY 42745 [facility] VALENTINE 6 6 PHYSICIAN KENYATTA DEPARTMEN S, PLLC T VISIT MODERATE SEVERITY HOSPITAL RAMÓN - 6 6 [facility] OUTPATIEN INC T EMERGENCY 72005 [facility] 6 6 JEFFY IVANNA DEPARTMEN EMERGENCY T VISIT PHYS MODERATE SEVERITY HOSPITAL RAMÓN - 6 6 [facility] OUTPATIEN INC T OFFICE 89894 [facility] 6 6 SHEBA DYSON T VISIT ADULT & 25 PED MINUTES HOSPITAL RAMÓN - 6 6 [facility] OUTPATIEN INC T HOSPITAL RAMÓN - 6 6 [facility] OUTPATIEN INC T EMERGENCY 39876 [facility] OCHOA 6 6 PHYSICIAN CONCHIS DEPARTMEN S, PLLC T VISIT HIGH/URGE NT SEVERITY HOSPITAL RAMÓN - 6 6 [facility] OUTPATIEN INC T OFFICE 87530 [facility] 6 6 SHEBA KIEL T VISIT ADULT & 25 PED MINUTES OFFICE 62726 [facility] 6 6 SHEBA KIEL ION ADULT & NEW/ESTAB PED PATIENT 60 MIN EMERGENCY 64584 [facility] 6 6 JEFFY PAT DEPARTMEN EMERGENCY T VISIT PHYS MODERATE SEVERITY EMERGENCY 26574 [facility] ARNOLD 6 6 JEFFY OSIEL DEPARTMEN EMERGENCY T VISIT PHYS MODERATE SEVERITY EMERGENCY 85537 [facility] 6 6 JEFFY DEPARTMEN EMERGENCY T VISIT PHYS MODERATE SEVERITY EMERGENCY 23700 RAMÓN 6 6 [facility] DEPARTMEN INC T VISIT LOW/MODER SEVERITY EMERGENCY 15071 [facility] VALENTINE 6 6 PHYSICIAN KENYATTA ESTESMEN S, PLLC T VISIT MODERATE SEVERITY HOSPITAL RAMÓN - 6 6 [facility] OUTPATIEN INC T EMERGENCY 89383 [facility] MAJOR 6 6 PHYSICIAN DEPARTMEN S, PLLC T VISIT MODERATE SEVERITY HOSPITAL RAMÓN - 6 6 [facility] OUTPATIEN INC T EMERGENCY 07130 RAMÓN 6 6 [facility] DEPARTMEN INC T VISIT LOW/MODER SEVERITY OFFICE 06163 RAMÓN OUTPATIEN 6 6 [facility]OS[facility] T VISIT INC 10 MINUTES OFFICE 28832 EULA MILLER [facility] OUTPATIEN 6 6 MD LUCI, T NEW 45 PSC MINUTES HOSPITAL RAMÓN - 6 6 [facility] OUTPATIEN INC T EMERGENCY 79013 RAMÓN 6 6 [facility] DEPARTMEN INC T VISIT LOW/MODER SEVERITY EMERGENCY 22240 [facility] OCHOA 6 6 PHYSICIAN CONCHIS [facility] T VISIT MODERATE SEVERITY HOSPITAL RAMÓN - 6 6 [facility] OUTPATIEN [facility] RAMÓN - 5 5 [facility] OUTPATIEN [facility] T EMERGENCY 36107 CU[facility]HTEMOC OCHOA 5 5 PHYSICIAN DEPARTMEN S, [facility] T VISIT MODERATE SEVERITY EMERGENCY 63049 RAMÓN 5 5 [facility] DEPARTMEN INC T VISIT LOW/MODER SEVERITY EMERGENCY 86106 [facility] CHUCHO 5 5 JEFFY [facility] EMERGENCY T VISIT PHYS HIGH/URGE NT SEVERITY EMERGENCY 41142 GRACIE ISAAC 5 5 MEDICAL ALEX DEPARTMEN SERV T VISIT FOUNDATIO MODERATE N [facility] HOSPITAL UNIVERSIT - 5 5 Y [facility] T EMERGENCY 98250 CU[facility]EMOC OCHOA DEPT 5 5 PHYSICIAN VISIT S, PLLC HIGH SEVERITY& THREAT [facility] RAMÓN - 5 5 [facility] OUTPATIEN INC T EMERGENCY 00632 [facility] NORIS 5 5 JEFFY ELO DEPARTMEN EMERGENCY T VISIT PHYS MODERATE SEVERITY EMERGENCY 03113 [facility] CELLAROSI 5 5 JEFFY - YORBA [facility] PAT T VISIT PHYS MODERATE SEVERITY HOSPITAL CARLY - 5 5 N OUTPATIEN COMMUNTIY T [facility] RAMÓN - 5 5 [facility] OUTPATIEN INC T HOSPITAL RAMÓN - 5 5 [facility] OUTPATIEN INC T EMERGENCY 28370 [facility] 5 5 JEFFY [facility]LO [facility] T VISIT PHYS MODERATE SEVERITY EMERGENCY 60484 RAMÓN OCHOA 5 5 [facility] T VISIT P LOW/MODER SEVERITY EMERGENCY 06147 [facility] 4 4 JEFFY [facility] T VISIT PHYS MODERATE SEVERITY OFFICE 75233 [facility] 4 KENYATTA KENYATTA T VISIT 25 MINUTES EMERGENCY 58612 [facility] 4 4 JEFFY [facility] EMERGENCY T VISIT PHYS MODERATE SEVERITY EMERGENCY 39809 RAMÓN 4 4 [facility] INC T VISIT LOW/MODER SEVERITY EMERGENCY 92989 DON [facility] 4 [facility] SE[facility] RAMÓN - 4 4 [facility] OUTPATIEN INC T EMERGENCY 19955 KANDI MILES 4 4 DEPARTMEN T VISIT MODERATE SEVERITY EMERGENCY 78170 KANDI MILES 4 4 DEPARTMEN T VISIT MODERATE SEVERITY EMERGENCY 37640 CELLAROSI CELLAROSI 4 4 - YORBA - Y[facility]BA [facility] PAT PAT T VISIT HIGH/URGE NT SEVERITY EMERGENCY 28213 ALFARIS ALFARIS 4 4 [facility] DEPARTMEN T VISIT HIGH/URGE NT SEVERITY EMERGENCY 37724 DON OCHOA 4 4 [facility] DEPARTMEN T VISIT MODERATE SEVERITY HOSPITAL RAMÓN - 3 3 [facility] OUTPATIEN INC T EMERGENCY 27082 CHUY II CHUY II 3 3 THO THO DEPARTMEN T VISIT MODERATE SEVERITY EMERGENCY 21876 SOKAN BAB SOKAN BAB 3 3 DEPARTMEN T VISIT MODERATE SEVERITY EMERGENCY 74278 ALFARIS ALFARIS 3 3 [facility] DEPARTMEN T VISIT MODERATE SEVERITY EMERGENCY 34899 RECHTIN RECHTIN 3 3 BUTTON CLAMPER BUTTON CLAMPER DEPARTMEN T VISIT MODERATE SEVERITY EMERGENCY 96364 KANDI MILES 3 3 DEPARTMEN T VISIT MODERATE SEVERITY EMERGENCY 74375 SOKAN BAB SOKAN BAB 3 3 DEPARTMEN T VISIT MODERATE SEVERITY EMERGENCY 15206 YARIEL MILES 3 3 EMERGENCY DEPARTMEN SERVICES T VISIT HIGH/URGE NT SEVERITY EMERGENCY 21840 STACK HEIDI STACK HEIDI 3 3 DEPARTMEN T VISIT HIGH/URGE NT SEVERITY EMERGENCY 84718 YARIEL WHITAKER 3 3 EMERGENCY DEPARTMEN SERVICES T VISIT MODERATE SEVERITY EMERGENCY 47516 YARIEL BARROSO DEPT 3 3 EMERGENCY JAM VISIT SERVICES HIGH SEVERITY& THREAT FUNCJ EMERGENCY 27885 CAREY PATINO 3 3 SET SET DEPARTMEN T VISIT HIGH/URGE NT SEVERITY EMERGENCY 96891 CHUY II CHUY II 3 3 THO THO DEPARTMEN T VISIT MODERATE SEVERITY EMERGENCY 91333 RAMÓN 3 3 [facility] DEPARTMEN INC T VISIT LIMITED/M INOR [facility] RAMÓN - 3 3 [facility] OUTPATIEN INC T EMERGENCY 84121 DON OCHOA 3 3 CONCHIS CONCHIS DEPARTMEN T VISIT HIGH/URGE NT SEVERITY EMERGENCY 86075 YARIEL COTE DEPT 3 3 EMERGENCY III KENYON VISIT SERVICES HIGH SEVERITY& THREAT FUNCJ EMERGENCY 99952 ABNER LEVINE MAT 2 2 DEPARTMEN T VISIT MODERATE SEVERITY EMERGENCY 53864 YARIEL GUSTAFSON 2 2 EMERGENCY ADT JONATHAN DEPARTMEN SERVICES T VISIT MODERATE SEVERITY OFFICE 57226 KATT BOLIVAR KENYATTA CONSULTAT 2 2 ION NEW/ESTAB PATIENT 60 MIN EMERGENCY 10142 FOX LISA FOX LISA 2 2 DEPARTMEN T VISIT MODERATE SEVERITY OFFICE 71280 MIGDALIA NEGRON OUTPATIEN 2 2 CLEMENTINE CLEMENTINE T VISIT 15 MINUTES EMERGENCY 26741 PUND CHR PUND CHR 2 2 DEPARTMEN T VISIT MODERATE SEVERITY EMERGENCY 08716 CHUY II CHUY II 2 2 THO THO DEPARTMEN T VISIT MODERATE SEVERITY EMERGENCY 07145 OSWALDO CHACON 2 2 JULIO JULIO DEPARTMEN T VISIT MODERATE SEVERITY HOSPITAL RAMÓN - 2 2 [facility] OUTPATIEN INC T EMERGENCY 71454 RAMÓN 2 2 [facility] DEPARTMEN INC T VISIT LOW/MODER SEVERITY EMERGENCY 76332 DON OCHOA 2 2 CONCHIS CONCHIS DEPARTMEN T VISIT MODERATE SEVERITY EMERGENCY 99258 CHUY II CHUY II 2 2 THO THO DEPARTMEN T VISIT HIGH/URGE NT SEVERITY OFFICE 97961 OZ CL[place] JR OUTPATIEN 2 2 KENYON KENYON T NEW 30 MINUTES OFFICE 87910 MIGDALIA NEGRON OUTPATIEN 2 2 CLEMENTINE CLEMENTINE T VISIT 15 MINUTES EMERGENCY 67011 ROCAEL COTE DEPT 2 2 III KENYON III KENYON VISIT HIGH SEVERITY& THREAT [facility] HOSPITAL RAMÓN - 2 2 [facility] OUTPATIEN INC T EMERGENCY 85901 RAMÓN 2 2 [facility] DEPARTMEN INC T VISIT MODERATE SEVERITY EMERGENCY 03614 DEJUAN ZAIDI 2 2 GAR GAR DEPARTMEN T VISIT MODERATE SEVERITY OFFICE 88788 NAVARRO PAD NAVARRO PAD OUTPATIEN 2 2 T VISIT 15 MINUTES EMERGENCY 12855 CHUY T CHUY T 2 2 DEPARTMEN T VISIT MODERATE SEVERITY EMERGENCY 60993 RECHTIN RECHTIN 2 2 BUTTON CLAMPER BUTTON CLAMPER DEPARTMEN T VISIT HIGH/URGE NT SEVERITY OFFICE 67782 LI LI OUTPATIEN 2 2 KIEL KIEL T VISIT 15 MINUTES EMERGENCY 13978 CELLAROSI CELLAROSI 2 2 - YORBA - YORBA DEPARTMEN PAT PAT T VISIT HIGH/URGE NT SEVERITY OFFICE 32947 NAVARRO PAD NAVARRO PAD OUTPATIEN 2 2 T VISIT 15 MINUTES EMERGENCY 38775 YARIEL STEPHENSON MARIO 2 2 EMERGENCY DEPARTMEN SERVICES T VISIT HIGH/URGE NT SEVERITY OFFICE 53766 MARY ODESSA MARY ODESSA OUTPATIEN 2 2 T VISIT 15 MINUTES EMERGENCY 75615 CHUY T CHUY T 2 2 DEPARTMEN T VISIT MODERATE SEVERITY OFFICE 69227 LI LI OUTPATIEN 2 2 KIEL KIEL T VISIT 15 MINUTES EMERGENCY 03989 DOWNS PAT DOWNS PAT 2 2 DEPARTMEN T VISIT HIGH/URGE NT SEVERITY EMERGENCY 81321 [place] 2 2 [facility] T VISIT MODERATE SEVERITY HOSPITAL [place] [facility] [address] [facility] T EMERGENCY 15011 GRACIE HUERTASMARITA 2 2 MEDICAL TEREZA DEPARTMEN SERV T VISIT FOUNDATIO MODERATE SEVERITY EMERGENCY 76366 YARIEL ARANDA 2 2 EMERGENCY PAT DEPARTMEN SERVICES T VISIT MODERATE SEVERITY OFFICE 59302 LI LI CONSULTAT 2 2 KIEL KIEL ION NEW/ESTAB PATIENT 40 MIN OFFICE 04608 MOIRA MOIRA OUTPATIEN 2 2 MITZI MITZI T NEW 20 MINUTES OFFICE 48910 POWELL POWELL OUTPATIEN 2 2 OSBALDO OSBALDO T VISIT 15 MINUTES HOSPITAL RAMÓN - 2 2 [facility] OUTPATIEN INC T EMERGENCY 48681 RAMÓN 2 2 [facility] DEPARTMEN INC T VISIT LOW/MODER SEVERITY EMERGENCY 00152 YARIEL OCHOA 2 2 EMERGENCY CONCHIS DEPARTMEN SERVICES T VISIT HIGH/URGE NT SEVERITY EMERGENCY 10471 CHUY T CHUY T 2 2 DEPARTMEN T VISIT MODERATE SEVERITY [facility]OSPITAL [place] - 2 2 [facility] T OFFICE 18869 BURGESS SOSAS OUTPATIEN 2 2 OSBALDO OSBALDO T VISIT 15 MINUTES EMERGENCY 53565 GRACIE ROMAN 2 2 MEDICAL [facility] DEPARTMEN SERV T VISIT FOUNDATIO HIGH/URGE NT SEVERITY OFFICE 71180 AICHA CARTAGENA OUTPATIEN 2 2 T VISIT 15 MINUTES OFFICE 30713 MARY ODESSA MARY ODESSA OUTPATIEN 2 2 T NEW 20 MINUTES OFFICE 02710 ADRIANAMOHSEN NEGRON OUTPATIEN 2 2 CLEMENTINE CLEMENTINE T VISIT 15 MINUTES EMERGENCY 97644 OSWALDO CHACON 2 2 JULIO JULIO DEPARTMEN T VISIT MODERATE SEVERITY EMERGENCY 45606 YARIEL OCHOA 2 2 EMERGENCY CONCHIS DEPARTMEN SERVICES T VISIT HIGH/URGE NT SEVERITY EMERGENCY 70245 RAMÓN 2 2 [facility] DEPARTMEN INC T VISIT LOW/MODER SEVERITY HOSPITAL RAMÓN - 2 2 [facility] OUTPATIEN INC T EMERGENCY 35039 YARIEL TIDWELL 2 2 EMERGENCY CAR DEPARTMEN SERVICES T VISIT LIMITED/M INOR PROB EMERGENCY 67057 VERONICA MARTIN 2 2 [facility] DEPARTMEN T VISIT HIGH/URGE NT SEVERITY HOSPITAL [facility] - 2 2 N OUTPATIEN COMMUNTIY T HOSPITA OFFICE 00311 NAVARRO PAD NAVARRO PAD OUTPATIEN 2 2 T VISIT 15 MINUTES EMERGENCY 29123 RAMÓN 2 2 [facility] T VISIT LOW/MODER SEVERITY HOSPITAL RAMÓN - 2 2 [facility] T EMERGENCY 99032 YARIEL OCHOA 2 2 EMERGENCY CONCHIS DEPARTMEN SERVICES T VISIT HIGH/URGE NT SEVERITY EMERGENCY 19566 DEJUAN ZAIDI 2 2 GAR GAR DEPARTMEN T VISIT MODERATE SEVERITY EMERGENCY 78277 YARIEL TIDWELL 2 2 EMERGENCY CAR [facility] SERVICES T VISIT MODERATE SEVERITY OFFICE 90680 [facility] CO[facility]ADO [facility] 1 1 SHARI SHARI T VISIT 15 MINUTES EMERGENCY 77720 OSWALDO CHACON 1 1 JULIO JULIO [facility] T VISIT MODERATE SEVERITY HOSPITAL UNIVERSIT - [address] [place] [address] T EMERGENCY 11993 UNIVERSIT [address] [place] [address] T VISIT MODERATE SEVERITY [facility] 1 [facility] T [facility]ERGENCY 38328 [facility] 1 [facility] T VISIT MODERATE SEVERITY OFFICE 78233 NAVARRO PAD NAVARRO PAD OUTPATIEN 1 1 T NEW 20 MINUTES EMERGENCY 14992 OSWALDO CHACON 1 1 JULIO JULIO DEPARTMEN T VISIT HIGH/URGE NT SEVERITY EMERGENCY 51263 DON OCHOA 1 1 CONCHIS [facility] DEPARTMEN T VISIT HIGH/URGE NT SEVERITY EMERGENCY 30246 RAMÓN 1 1 [facility] INC T VISIT LOW/MODER SEVERITY HOSPITAL RAMÓN - 1 1 [facility] T OFFICE 93627 ESCALANTE JULIO ESCALANTE JULIO OUTPATIEN 1 1 T VISIT 15 MINUTES EMERGENCY 38445 [facility] TEODORO 1 1 PRIMARY FRITZ DEPARTMEN CARE T VISIT PHYSICANS MODERATE M SEVERITY EMERGENCY 82361 YARIEL CELLAROSI 1 1 EMERGENCY - YORBA DEPARTMEN SERVICES PAT T VISIT MODERATE SEVERITY HOSPITAL UNIVERSIT - 1 1 Y OUTPATIEN [facility]PITAL T EMERGENCY 78301 UNIVERSIT 1 1 Y [facility] T VISIT MODERATE SEVERITY OFFICE 48994 ESCALANTE JULIO ESCALANTE JULIO OUTPATIEN 1 1 T VISIT 15 MINUTES [facility] 48557 UNIVERSIT 1 1 Y [facility] T VISIT MODERATE SEVERITY EMERGENCY 47904 [facility] MERCHANT 1 1 PRIMARY KET DEPARTMEN CARE T VISIT PHYSICANS HIGH/URGE M NT SEVERITY OFFICE 62958 VENGUSWAM VENGUSWAM OUTPATIEN 1 1 Y CATARINA Y CATARINA T VISIT 15 MINUTES OFFICE 21869 ESCALANTE JULIO ESCALANTE JULIO OUTPATIEN 1 1 T NEW 30 MINUTES EMERGENCY 43028 GRACIE LOPEZ 1 1 MEDICAL DEPARTMEN SERV T VISIT FOUNDATIO MODERATE SEVERITY HOSPITAL [facility] 62285 UNIVERSIT 1 1 Y [facility] T VISIT LOW/MODER SEVERITY EMERGENCY 83566 GRACIE MONIQUE 1 1 MEDICAL SON DEPARTMEN SERV T VISIT FOUNDATIO MODERATE SEVERITY EMERGENCY 77802 YARIEL FERNANDEZ 1 1 EMERGENCY [facility] DEPARTMEN SERVICES T VISIT HIGH/URGE NT SEVERITY [facility]OSPITAL [facility] 33546 GRACIE WHARTON JR 1 1 MEDICAL [place] DEPARTMEN SERV T VISIT FOUNDATIO MODERATE SEVERITY EMERGENCY 49134 UNIVERSIT 1 1 Y [facility] T VISIT LOW/MODER SEVERITY EMERGENCY 82492 YARIEL GONZALEZ 1 1 EMERGENCY DEPARTMEN SERVICES T VISIT HIGH/URGE NT SEVERITY EMERGENCY 71463 RAMÓN 1 1 [facility] DEPARTMEN INC T VISIT LOW/MODER SEVERITY HOSPITAL RAMÓN - 1 1 [facility] OUTPATIEN INC T EMERGENCY 86334 [facility] 1 1 JEFFY DEPARTMEN EMERGENCY T VISIT PHYS MODERATE SEVERITY EMERGENCY 02303 YARIEL SHEETS 1 1 EMERGENCY [facility] DEPARTMEN SERVICES T VISIT MODERATE SEVERITY HOSPITAL RAMÓN - 1 1 [facility] 92637 YARIEL OCHOA 1 1 EMERGENCY [facility] DEPARTMEN SERVICES T VISIT HIGH/URGE NT SEVERITY EMERGENCY 88013 RAMÓN 1 1 [facility] V[facility]/M INOR PROB EMERGENCY 41626 YARIEL DOWNING 1 1 EMERGENCY - YOA [facility] SERVICES PAT T VISIT HIGH/URGE NT SEVERITY HOSPITAL [facility] - 1 1 N OUTPATIEN COMMUNITY T HOSPITA EMERGENCY 95289 [facility] 1 1 N DEPARTMEN COMMUNITY T VISIT HOSPITA LOW/MODER SEVERITY [facility] 05413 GRACIE MARC 1 1 MEDICAL [place] DEPARTMEN SERV T VISIT FOUNDATIO MODERATE SEVERITY EMERGENCY [address] DEPARTMEN T VISIT LOW/MODER SEVERITY EMERGENCY 84523 [facility] 1 1 JEFFY DEPARTMEN EMERGENCY T VISIT PHYS MODERATE SEVERITY HOSP[facility] [place] [address] 1 HOSPITAL OUTPATIEN T EMERGENCY 97556 YARIEL GALO 1 1 EMERGENCY [facility] DEPARTMEN SERVICES T VISIT MODERATE SEVERITY EMERGENCY 42068 [facility] 1 1 N [facility] SE[facility] EMERGENCY 78565 YARIEL ZAIDI DEPT 1 1 EMERGENCY GAR VISIT SERVICES HIGH SEVERITY& [facility]AT [facility] - 1 N [facility] HOSPITA OFFICE 41508 VENGUSWAM VENGUSWAM OUTPATIEN 1 1 Y CATARINA Y CATARINA T VISIT 25 MINUTES OFFICE 13114 VENGUSWAM VENGUSWAM OUTPATIEN 1 1 Y CATARINA Y CATARINA T NEW 30 MINUTES OFFICE 64058 [facility] KENRICKE OUTPATIEN 1 1 N URGENT ABD T VISIT CARE 15 MINUTES EMERGENCY 06267 YARIEL GALO [address] [facility] SERVICES T VISIT HIGH/URGE NT SEVERITY OFFICE 91829 [facility] K[facility]RICKE OUTPATIEN 1 1 N URGENT ABD T VISIT CARE 15 MINUTES HOSPITAL [facility] 68080 [facility] KENRICKE OUTPATIEN 1 1 N URGENT ABD T VISIT CARE 15 MINUTES OFFICE 84445 [facility] RABIEE OUTPATIEN 1 1 N URGENT ABD T VISIT CARE 15 MINUTES EMERGENCY 10449 YARIEL GONZALEZ 1 1 EMERGENCY DEPARTMEN SERVICES T VISIT HIGH/URGE NT SEVERITY EMERGENCY 58737 RAM[facility]N [facility]MODER SEVERITY HOSPITAL RAMÓN - 1 1 [facility] T EMERGENCY 46173 Y[facility]EL GALO 1 1 [facility]IT MODERATE SEVERITY OFFICE 93014 GRACIE Ding OUTPATIEN 1 1 MEDICAL T VISIT SERV 10 FOUNDATIO MINUTES OFFICE 33744 [facility] DANNIELLE OUTPATIEN 1 1 N URGENT ABD T VISIT CARE 15 MINUTES OFFICE 46090 [facility] DANNIELLE OUTPATIEN 1 1 N URGENT ABD T VISIT CARE 15 MINUTES OFFICE 88657 [facility] KENRIKCE OUTPATIEN 0 0 N URGENT ABD T VISIT CARE 15 MINUTES OFFICE 22785 [facility] KENRICKE OUTPATIEN 0 0 N URGENT ABD T VISIT CARE [address]ES [address] [facility] CONSULTAT 0 0 ANNITA GALINDO CARDIOLOG NEW/ESTAB Y CLINIC PATIENT 30 MIN EMERGENCY 00119 YARIEL GALO [address] [facility] SERVICES T VISIT MODERATE SEVERITY HOSPITAL [facility] 48740 [facility] DANNIELLE OUTPATIEN 0 0 N URGENT ABD T VISIT CARE 15 MINUTES HOSPITAL [facility] 48154 [facility] DANNIELLE OUTPATIEN 0 0 N URGENT ABD T VISIT CARE 15 MINUTES HOSPITAL RAMÓN - 0 0 [facility] OUTPATIEN INC T EMERGENCY 01255 YARIEL COTE 0 0 [facility] HIGH/URGE NT SEVERITY EMERGENCY 78601 RAMÓN 0 0 [facility] DEPARTMEN INC T VISIT LOW/MODER SEVERITY OFFICE 52696 [facility] OUTPATIEN 0 0 [place] T VISIT ORTHOPAED 15 [facility] MINUTES OFFICE 90179 GARCÍA TRA GARCÍA TRA OUTPATIEN 0 0 T VISIT 10 MINUTES OFFICE 88209 CARLY CHOUDHARYE OUTPATIEN 0 0 N URGENT ABD T NEW 30 CARE MINUTES OFFICE 22947 [facility] TRA OUTPATIEN 0 0 [place] T VISIT ORTHOPAED 15 [facility] MINUTES [facility] - 0 0 N OUTPATIEN COMMUNITY T HOSPITA EMERGENCY 09286 [facility] 0 0 N DEPARTMEN COMMUNITY T VISIT HOSPITA MODERATE SEVERITY EMERGENCY 09566 YARIEL CHUY T 0 0 EMERGENCY DEPARTMEN SERVICES T VISIT MODERATE SEVERITY EMERGENCY 49999 YARIEL ROBERTO DEPT 0 0 EMERGENCY DON VISIT SERVICES HIGH SEVERITY& THREAT FUNCJ EMERGENCY 84559 RAMÓN 0 0 [facility] DEPARTMEN INC T VISIT LOW/MODER SEVERITY EMERGENCY 06755 YARIEL OCHOA, 0 0 EMERGENCY DANIELA S DEPARTMEN SERVICES T VISIT HIGH/URGE ASSOCIATE NT S SEVERITY HOSPITAL RAMÓN - 0 0 [facility] OUTPATIEN INC T EMERGENCY 82199 [place] MOHAN 0 0 MEDICAL GAIL DEPARTMEN SERV T VISIT FOUNDATIO MODERATE SEVERITY HOSPITAL UN[facility]ERSIT - 0 0 Y OUTPATIEN HOSPITAL T EMERGENCY 51427 UNIVERSIT 0 0 Y DEPARTMEN HOSPITAL T VISIT LOW/MODER SEVERITY HOSPITAL RAMÓN - 0 0 [facility] OUTPATIEN INC T EMERGENCY 53546 YARIEL OCHOA DEPT 0 0 EMERGENCY DANIELA S VISIT SERVICES HIGH SEVERITY& ASSOCIATE THREAT S FUNCJ EMERGENCY 65686 RAMÓN 0 0 [facility] DEPARTMEN INC T VISIT LOW/MODER SEVERITY EMERGENCY 40811 RAMÓN 0 0 [facility] DEPARTMEN INC T VISIT LOW/MODER SEVERITY HOSPITAL RAMÓN - 0 0 [facility] OUTPATIEN INC T EMERGENCY 74186 YARIEL GIL 0 0 EMERGENCY [facility] DEPARTMEN SERVICES T VISIT MODERATE SEVERITY HOSPITAL RAMÓN - 0 0 [facility] OUTPATIEN INC T EMERGENCY 06596 [facility] 0 [facility]/M INOR PROB EMERGENCY 53427 YARIEL OCHOA, 0 0 EMERGENCY [facility] DEPARTMEN SERVICES T VISIT HIGH/URGE ASSOCIATE NT S SEVERITY EMERGENCY 94132 [place] 0 0 [facility] T VISIT MODERATE SEVERITY EMERGENCY 29915 YARIEL WATT 0 0 EMERGENCY DEPARTMEN SERVICES T VISIT HIGH/URGE NT SEVERITY HOSPITAL [place] [facility] [address] [facility] T EMERGENCY 19783 YARIEL CHARLES, 0 0 EMERGENCY ANGELY J DEPARTMEN SERVICES T VISIT MODERATE ASSOCIATE SEVERITY S EMERGENCY 97382 YARIEL BARROSO, 0 0 EMERGENCY [facility] SERVICES T VISIT HIGH/URGE ASSOCIATE NT S SEVERITY [facility]OSPITAL [place] - 0 0 [facility] T EMERGENCY 18884 [facility] DELANEY, 0 0 JEFFY SMITH DEPARTMEN EMERGENCY A T VISIT PHYS INC MODERATE SEVERITY EMERGENCY 64791 [facility] JEFFY Mills DEPARTMEN EMERGENCY T VISIT PHYS INC MODERATE SEVERITY OFFICE 30946 [facility] BOY Quinn T NEW 30 MINUTES EMERGENCY 63305 [facility] SUDEEP, 0 0 JEFFY Mills DEPARTMEN EMERGENCY T VISIT PHYS INC MODERATE SEVERITY EMERGENCY 19778 [facility] PADMA, 0 0 JEFFY Quinn DEPARTMEN EMERGENCY T VISIT SERV PC HIGH/URGE NT SEVERITY HOSPITAL [facility] - 0 0 HOSPITAL OUTPATIEN T EMERGENCY 44814 [facility] 0 0 HOSPITAL DEPARTMEN T VISIT MODERATE SEVERITY [facility]OSPITAL [place] - 0 0 [facility] EMERGENCY 03147 [place] 0 0 [facility] T VISIT MODERATE SEVERITY EMERGENCY 12807 [facility] TROY, 0 0 JEFFY HUERTA DO, DEPARTMEN EMERGENCY NAREN O T VISIT PHYS INC MODERATE SEVERITY EMERGENCY 36171 [facility] JEFFY , [place] DEPARTMEN EMERGENCY M T VISIT PHYS INC MODERATE SEVERITY EMERGENCY 59075 [facility] TROY, 0 0 JEFFY HUERTA DO, DEPARTMEN EMERGENCY NAREN O T VISIT PHYS INC MODERATE SEVERITY HOSPITAL [place] [facility] [address] [facility] T EMERGENCY 26584 UN[facility] 0 0 Y [facility] HOSPITAL T VISIT LIMITED/M INOR PROB EMERGENCY 15594 [place] COVINA, 0 0 MEDICAL YOSELIN C DEPARTMEN SERV T VISIT FOUNDATIO LOW/MODER SEVERITY HOSPITAL [facility] - 0 0 Y [facility] T EMERGENCY 07008 YARIEL BARROSO, 0 0 EMERGENCY VALERIE [facility] T VISIT MODERATE ASSOCIATE SEVERITY S EMERGENCY 39820 [facility] CHUY, T 0 0 JEFFY DEPARTMEN EMERGENCY T VISIT PHYS INC MODERATE SEVERITY EMERGENCY 66215 [facility] CHUY, T 0 0 JEFFY DEPARTMEN EMERGENCY T VISIT PHYS INC MODERATE SEVERITY EMERGENCY 95381 [facility] CELLAROSI 0 0 JEFFY - YORBA, [facility] EMERGENCY BLANCO T VISIT PHYS INC M MODERATE SEVERITY HOSPITAL [facility] - 0 0 [facility]ERG[facility] 25998 UN[facility] 0 0 Y [facility] HOSPITAL T VISIT MODERATE SEVERITY EMERGENCY 83305 [facility] JEFFY MERVIN Hdz DEPARTMEN EMERGENCY T VISIT PHYS INC MODERATE SEVERITY HOSPITAL [place] [facility] [address] [facility] T EMERGENCY 25877 [place] 0 0 [facility] T VISIT LOW/MODER SEVERITY EMERGENCY 48331 [place] 0 0 [facility] T VISIT LOW/MODER SEVERITY [facility]OSPITAL [place] [facility] [address] [facility] T EMERGENCY 64267 [place] RACHELLEBAR 0 0 MEDICAL I, MORELIA [facility] SERV A T VISIT FOUNDATIO MODERATE SEVERITY HOSPITAL WH[facility] - 9 9 [facility] T EMERGENCY 16248 WH[facility] 9 9 [facility] T VISIT LOW/MODER SEVERITY EMERGENCY 26678 [facility] CHUY T 9 9 [facility] T VISIT PHYS INC MODERATE SEVERITY EMERGENCY 29420 [facility] TROY, 9 9 JEFFY NAREN Maynard DEPARTMEN EMERGENCY T VISIT PHYS INC MODERATE SEVERITY EMERGENCY 41254 [facility] SUDEEP, 9 9 JEFFY DANIELA [facility] T VISIT PHYS INC MODERATE SEVERITY HOSPITAL [facility] - 9 9 [facility] T EMERGENCY 35299 [facility] MOSHE, 9 9 [facility]U [facility] T VISIT PHYS INC HIGH/URGE NT SEVERITY EMERGENCY 60847 [facility] 9 9 [facility] T VISIT LOW/MODER SEVERITY EMERGENCY 20796 [facility] CHUY T 9 9 [facility] T VISIT PHYS INC MODERATE SEVERITY EMERGENCY 59204 [facility] DELANEY, 9 9 JEFFY SARAH [facility] EMERGENCY A T VISIT PHYS INC MODERATE SEVERITY HOSPITAL [place] - 9 9 [facility] T [facility] [address] [facility] T EMERGENCY 03355 [facility] 9 9 [facility] T VISIT LOW/MODER SEVERITY EMERGENCY 70906 [facility], 9 9 JEFFY SARAH [facility] A T VISIT PHYS INC MODERATE SEVERITY OFFICE 55499 SHANISTDEA BELTRAN CONSULTAT 9 9 , QUITA DEVLIN NEW/ESTAB PATIENT 40 MIN EMERGENCY 65681 [facility] 9 9 HOSPITAL DEPARTMEN T VISIT LOW/MODER SEVERITY EMERGENCY 46890 [facility] 9 9 JEFFY , [facility]ENC[facility] [place] T VISIT PHYS INC MODERATE SEVERITY HOSPITAL [facility] - 9 9 [facility] - 9 9 [facility] OUTPATIEN INC T EMERGENCY 22940 [facility] 9 9 [facility] DEPARTMEN INC T VISIT LOW/MODER SEVERITY EMERGENCY 11169 YARIEL OCHOA, 9 9 EMERGENCY DANIELA S DEPARTMEN SERVICES T VISIT MODERATE ASSOCIATE SEVERITY S EMERGENCY 25918 [facility], 9 9 JEFFY IDA DEPARTMEN EMERGENCY T VISIT PHYS INC MODERATE SEVERITY EMERGENCY 05810 [facility] 9 9 JEFFY Mills DEPARTMEN EMERGENCY T VISIT PHYS INC MODERATE SEVERITY EMERGENCY 67967 [facility] 9 9 [facility] DEPARTMEN INC T VISIT LOW/MODER SEVERITY [facility]OSPITAL [facility] - 9 9 [facility] OUTPATIEN INC T EMERGENCY 89803 YARIEL OCHOA, 9 9 EMERGENCY DANIELA S DEPARTMEN SERVICES T VISIT MODERATE ASSOCIATE SEVERITY S EMERGENCY 07869 [facility] 9 9 HOSPITAL DEPARTMEN T VISIT LOW/MODER SEVERITY HOSPITAL [facility] - 9 9 [facility] 10108 [facility], 9 9 JEFFY Kai Martinez DEPARTMEN EMERGENCY T VISIT PHYS INC MODERATE SEVERITY EMERGENCY 32145 [facility], 9 9 JEFFY DORIS Lydia [facility] T VISIT PHYS INC MODERATE SEVERITY EMERGENCY 97386 [facility] 9 9 HOSPITAL DEPARTMEN T VISIT LOW/MODER SEVERITY HOSPITAL [facility] - 9 9 [facility] OUTPAT[facility] T EMERGENCY 41014 [facility], 9 9 JEFFY SARAH [facility] EMERGENCY A T VISIT PHYS INC MODERATE SEVERITY EMERGENCY 93223 YARIEL OCHOA, 9 9 EMERGENCY [facility] SERVICES T VISIT MODERATE ASSOCIATE SEVERITY S HOSPITAL RAMÓN - 9 9 [facility] OUTPATIEN INC T EMERGENCY 55264 [facility] 9 9 [facility] T VISIT LOW/MODER SEVERITY EMERGENCY 59522 [facility] 9 9 [facility] T VISIT MODERATE SEVERITY [facility] [address] [facility] T EMERGENCY 48853 [facility] 9 9 [facility] DEPARTMEN INC T VISIT LOW/MODER SEVERITY [facility]OSPITAL [place] [facility] - 9 9 [facility] T EMERGENCY 47763 YARIEL OCHOA, 9 9 EMERGENCY [facility] SERVICES T VISIT HIGH/URGE ASSOCIATE NT S SEVERITY EMERGENCY 35914 JOESPH VERA T 9 9 [facility] EMERGENCY T VISIT PHYS INC MODERATE SEVERITY OFFICE 63467 RAMON NAVARRO OUTPATIEN 9 9 LYNDSAY G LYNDSAY G T VISIT 15 MINUTES EMERGENCY 12432 JOESPH VERA T 9 9 [facility] EMERGENCY T VISIT PHYS INC MODERATE SEVERITY EMERGENCY 00518 [facility] 9 9 [facility] T VISIT LOW/MODER SEVERITY [facility] [address] [facility] T EMERGENCY 55406 [facility] SUDEEP, 9 9 [facility] T VISIT PHYS INC MODERATE SEVERITY EMERGENCY 02372 YARIEL OCHOA, 9 9 EMERGENCY DANIELA S [facility] SERVICES T VISIT MODERATE ASSOCIATE SEVERITY S [facility] RAMÓN - 9 9 [facility] OUTPATIEN INC T EMERGENCY 64807 RAM[facility]N 9 9 [facility]IS[facility] LOW/MODER SEVERITY EMERGENCY 35602 [facility] 9 9 [facility] EMERGENCY T VISIT PHYS INC MODERATE SEVERITY HOSPITAL RAMÓN - 9 9 [facility] HOS[facility] OUTPATIEN [facility] T EMERGENCY 59115 RAMÓN 9 9 [facility] INC T VISIT LOW/MODER SEVERITY EMERGENCY 40441 [facility] 9 9 [facility] EMERGENCY T VISIT PHYS INC MODERATE SEVERITY EMERGENCY 81171 YARIEL MUÑOZ, DEPT 9 9 EMERGENCY [place] VISIT SERVICES HIGH SEVERITY& ASSOCIATE THREAT S [facility] RAMÓN - 9 9 [facility] OUTPATIEN [facility] T EMERGENCY 68493 RAMÓN 9 9 [facility] INC T VISIT MODERATE SEVERITY EMERGENCY 96638 [facility] 9 9 [facility] T VISIT LOW/MODER SEVERITY HOSPITAL [facility] - 9 9 [facility] T EMERGENCY 00969 [facility] RANDY, 9 9 JEFFY Dominguez [facility] EMERGENCY T VISIT PHYS INC MODERATE SEVERITY EMERGENCY 82255 [facility] 9 9 [facility] T VISIT LIMITED/M INOR PROB OFFICE 94534 RUBY [facility]TRAN CONSULTAT 9 9 , QUITA DEVLIN ION NEW/ESTAB PATIENT 60 MIN EMERGENCY 58070 [facility], 9 9 JEFFY Hdz [facility] EMERGENCY T VISIT PHYS INC MODERATE SEVERITY EMERGENCY 30296 [facility] 9 9 [facility] T VISIT LIMITED/M INOR PROB HOSPITAL [place] - [address] [facility] T HOSPITAL [place] - [address] [facility] T EMERGENCY 81951 [facility] 9 9 [facility] T VISIT MODERATE SEVERITY EMERGENCY 73149 [facility], 9 9 JEFFY MEDRANO S [facility] T VISIT PHYS INC LOW/MODER SEVERITY HOSPITAL RAMÓN - 9 9 [facility] OUTPATIEN INC T [facility]GENCY 45922 [facility] 9 [facility] T VISIT MODERATE SEVERITY HOSPITAL RAMÓN - 9 9 [facility] OUTPATIEN INC T EMERGENCY 17775 RAMÓN 9 9 [facility] H[facility] INC T VISIT LIMITED/M INOR PROB EMERGENCY 35519 YARIEL RICHARDSON, 9 9 EMERGENCY VALERIE [facility] SERVICES T VISIT MODERATE ASSOCIATE SEVERITY [facility] - 9 9 [facility]ER[facility] 60256 [facility] 9 9 NANITA PARKER [facility] EMERGENCY T VISIT PHYS INC MODERATE SEVERITY EMERGENCY 05950 [facility] 9 9 [facility] T VISIT LIMITED/M INOR PROB EMERGENCY 10683 [facility] SUDEEP, 9 9 JEFFY Mills DEPARTMEN EMERGENCY T VISIT PHYS INC MODERATE SEVERITY EMERGENCY 33345 [facility] 9 9 [facility] T VISIT LIMITED/M INOR PROB EMERGENCY 42044 GRACIE SOLORIO, 9 9 MEDICAL MERVIN Martinez [facility] SERV T VISIT FOUNDATIO MODERATE SEVERITY HOSPITAL [facility] - 9 9 [facility] [place] [facility] [address] [facility] T EMERGENCY 21801 [facility] 9 9 [facility] T VISIT LOW/MODER SEVERITY EMERGENCY 22409 [facility], 9 9 JEFFY Mckeon [facility] EMERGENCY T VISIT PHYS INC MODERATE SEVERITY EMERGENCY 98239 [facility], 9 9 JEFFY Hdz [facility] EMERGENCY T VISIT PHYS INC MODERATE SEVERITY EMERGENCY 94219 [facility] [place], 9 9 JEFFY WYNN Ldyia [facility] EMERGENCY T VISIT PHYS INC MODERATE SEVERITY [facility]OSP[facility] [place] - 9 9 [facility] H[facility]PITAL UNIVERSIT - 9 9 [facility] T OFFICE 81351 [facility] 9 9 LYNDSAY G LYNDSAY G T VISIT 15 MINUTES HOSPITAL UNIVERSIT - 9 9 Y [facility] EMERGENCY 62470 UNIVERSIT 9 9 Y [facility] T VISIT HIGH/URGE NT SEVERITY EMERGENCY 10288 [facility] 8 8 JEFFY [facility] EMERGENCY T VISIT PHYS INC MODERATE SEVERITY HOSPITAL [facility] - 8 8 N [facility] HOSPITAL OFFICE 48524 RAMON NAVARRO, CONSULTAT 8 8 LYNDSAY G LYNDSAY G ION NEW/ESTAB PATIENT 60 MIN OFFICE 75780 CARDIOLOG DINO, CONSULTAT 8 8 Y EMILIE Mckeon ION ASSOCIATE NEW/ESTAB S OF PATIENT [place] 60 MIN HOSPITAL RAMÓN - 8 8 [facility] 42988 [facility] 8 8 [facility] T VISIT LOW/MODER SEVERITY HOSPITAL [facility] - 8 8 N [facility] HOSPITAL EMERGENCY 24176 [facility] CELLAROSI DEPT 8 8 JEFFY CALERO, VISIT EMERGENCY BLANCO HIGH PHYS INC M SEVERITY& THREAT FUNCJ EMERGENCY 47992 [facility] 8 8 N [facility] VISIT HOSPITAL HIGH/URGE NT SEVERITY HOSPITAL [facility] - 8 8 N [facility] EMERGENC[facility] 62633 [facility] 8 8 N [facility] T VISIT HOSPITAL LOW/MODER SEVERITY EMERGENCY 25699 [facility], 8 8 JEFFY SMITH [facility] A T VISIT PHYS INC MODERATE SEVERITY OFFICE 73616 Timur AMIN CONSULTAT 8 8 MEDICAL D ION SERV NEW/ESTAB FOUNDATIO PATIENT 40 MIN EMERGENCY 85842 [facility] DELANEY DEPT 8 8 JEFFY SMITH VISIT EMERGENCY A HIGH PHYS INC SEVERITY& THREAT FUNCJ EMERGENCY 50972 UN[facility] 8 8 Y [facility] T VISIT LIMITED/M INOR PROB [facility] UNIVERSIT - 8 8 Y [facility] T EMERGENCY 79582 GRACIE WELLS 8 8 MEDICAL , C A DEPARTMEN SERV T VISIT FOUNDATIO MODERATE SEVERITY EMERGENCY 54864 UN[facility] 8 8 Y [facility] T VISIT HIGH/URGE NT SEVERITY HOSPITAL UN[facility] - 8 8 Y [facility] T EMERGENCY 09287 GRACIE LANGE 8 8 MEDICAL I, MORELIA DEPARTMEN SERV A T VISIT FOUNDATIO MODERATE SEVERITY EMERGENCY 89918 [facility] DEPT 8 8 JEFFY KIDD VISIT EMERGENCY HIGH PHYS INC SEVERITY& THREAT FUNCJ
--- OUTSIDE RECORDS SUMMARY | 2017-02-21 09:59 | External Medical Summary Rpt ---
Author Author [employer] Campos, [employer] Address Unknown Phone Unavailable
--- OUTSIDE RECORDS SUMMARY | 2017-02-21 09:59 | External Medical Summary Rpt | CCD ---
Demographics Preferred Language Telugu Marital Status Unknown Congregation Affiliation Unknown Race Unknown Ethnic Group Unknown Author Author , MP DEMPSEY Address Unknown Phone Immunization Unable to retrieve immunization data due to connection failure with Immunization Registry. Please try again later.
--- OUTSIDE RECORDS SUMMARY | 2017-02-21 09:59 | External Medical Summary Rpt | CCD ---
Demographics Preferred Language Romanian Marital Status Unknown Yarsani Affiliation Unknown Race Unknown Ethnic Group Unknown Author Author , MP DEMPSEY Address Unknown Phone Immunization Unable to retrieve immunization data due to connection failure with Immunization Registry. Please try again later.
== END 2017-02-12 19:43 | disposition home or self-care (01) ==
LOC: UTC 18:55
DX: B37.2 Candidiasis of skin and nail (principal); B37.9 Candidiasis, unspecified; J45.909 Unspecified asthma, uncomplicated

== ENCOUNTER 2017-03-05 02:58 | Emergency (ER) | payer MEDICAID ==
[~2017-03-05] VITALS: Ht 172.7 cm; Wt 104.3 kg
[~2017-03-05 02:58] MED LIST: ALBUTEROL-200 PUFFS/ IH; ANTIBIOTIC OR; ATHLETE'S FOOT60 GM TP; BACTRIM DS 8001 TA1 PO; BACTRIM DS 8001 TAB PO; BACTROBAN2% TP; BUSPAR 10MG TAB10 MG PO; CIPRO 500MG TA500 MG PO; CLONAZEPAM PO; DARVOCET-N 1001 EACH PO; DARVOCET-N6 EACH/PAK PO; ESCITALOPRAM10 M1 PO; FLAGYL 500MG.500 MG PO; FLAGYL500 M1 PO; FLAGYL500 MG PO; FLEXERIL10 MG PO; GABAPENTIN 600600 MG PO; KEFLEX 500MG.500 MG PO; LISINOPRIL 10MG10 MG PO; LISINOPRIL10 MG PO; LORTAB 5/500 501 TAB PO; LORTAB 500 MG-71 TAB PO; MEDROL 4MG. DOSE4 MG PO; METRONIDAZOLE500 MG PO; NOMEDS *; NORCO 325 MG-51 TAB PO; NYSTATIN O15 GM/TUBE EX; NYSTATIN TO30 GM/BOT TP; OMEPRAZOLE20 MG PO; PERCOCET 5/3251 EACH PO; PERCOCET1 TAB PO; PERCOGESIC1 TAB PO; PREDNISONE 10MG10 MG PO; PREDNISONE 20MG20 MG PO; SEPTRA DS 800 M1 TAB PO; TESSALON PERLE100 MG PO; TRAMADOL 50MG T50 MG PO; TYLENOL ES500 MG PO; TYLENOL W/CODEI1 TA2 PO; TYLENOL W/CODEI1 TA3 PO; ULTRAM 50 MG TA50 MG PO; ULTRAM50 MG PO; VALIUM 10MG TAB10 MG PO; VENTOLIN H0.09 MG/AC IH; VENTOLIN H0.09 MG/Ac IH; VIBRAMYCIN 100100 MG PO; VICODIN 5/500 T1 TAB PO; VOLTAREN75 MG PO; XANAX 1MG TABLET1 MG PO; ZITHROMAX Z PA250 MG PO
--- OUTSIDE RECORDS SUMMARY | 2017-03-05 03:31 | External Medical Summary Rpt | CCD ---
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 CONTRAST MATERIAL RADIOLOGI 89441 SHEBA OAKLEY C 4 MEDICAL MARIO EXAMINATI IMAGING ON PELVIS ASS 1/2 VIEWS RADIOLOGI 81767 SHEBA OAKLEY C EXAM 4 MEDICAL MARIO CHEST 2 IMAGING VIEWS ASS FRONTAL&L ATERAL KNEE L1830 [email or web address] ORTHOSIS 4 IMMOBLIZE R CANVAS LONGTUDNL PREFAB RADEX 66878 RAMÓN MELGAR SHOULDER 4 [facility] COMPLETE INC INC MINIMUM 2 VIEWS INCISION 50488 KANDI CHAU GINGER & 4 [place] [address] BELCHER JAM BELCHER JAM ABDOMEN & 4 PELVIS W/O CONTRAST MATERIAL NEBULIZER E0570 JANEL ISLAS WITH 4 HOME HOME COMPRESSO MEDICAL MEDICAL R EQUIPME EQUIPME ADMN SET A7003 YOUR YOUR SM VOL 4 [facility] [place] [address] RAMÓN MELGAR THYROID 3 [facility] STIMULATI INC INC NG HORMONE TSH HEMOGLOBI 24417 RAMÓN MELGAR N 3 [facility] GLYCOSYLA INC INC THERESA A1C BLOOD 95750 RAMÓN MELGAR COUNT 3 [facility] COMPLETE INC INC AUTO&[place] [address] RAMÓN MELGAR THYROXINE 3 [facility] TOTAL INC INC COMPREHEN 64657 RAMÓN MELGAR SIVE 3 [facility] METABOLIC INC INC PANEL LIPID 79058 RAMÓN MELGAR PANEL 3 [facility] INC INC RADEX 56472 KOSTELIC KOSTELIC SPINE 3 VINICIO VINICIO LUMBOSACR AL 2/3 VIEWS SIMPLE 70682 YARIEL RODRIGUEZ MAR REPAIR 3 EMERGENCY SCALP/NEC SERVICES K/AX/MAIRA T/TRUNK 2.5CM/< [place] [address] BELCHER JAM BELCHER JAM ABDOMEN & 3 PELVIS W/O CONTRAST MATERIAL URNLS DIP 65066 RAMÓN MELGAR 3 [facility] STICK/TAB INC INC LET REAGENT AUTO MICROSCOP Y RADIOLOGI 26991 MARIBELL C MARIBELL C C EXAM 2 CHEST 2 VIEWS FRONTAL&L ATERAL RADIOLOGI 79887 [facility] [place] MASTERS C EXAM 2 RADIOLOGY JOSHUA CHEST 2 VIEWS FRONTAL&L ATERAL RADEX 01139 [facility] [place] JAY HAND 2 RADIOLOGY LIZA MINIMUM 3 VIEWS RADEX 16150 [facility] [place] TRISH HAND 2 RADIOLOGY RHO MINIMUM 3 VIEWS RADEX TOE 53088 [place] CELE MINIMUM 2 MEDICAL MARIO [address] [place] [address] [facility] [place] ABDOMEN & 2 RADIOLOGY RAY PELVIS W/[place] [address] RAMÓN MELGAR ABDOMEN & 2 [facility] PELVIS INC INC W/O CONTRAST MATERIAL BLOOD 62966 RAMÓN MELGAR COUNT 2 [facility] COMPLETE INC INC AUTO&AUTO DIFRNTL WBC URNLS DIP 04765 RAMÓN MELGAR 2 [facility] STICK/TAB INC INC LET REAGENT AUTO MICROSCOP Y BASIC 38433 RAMÓN MELGAR METABOLIC 2 [facility] PANEL INC INC CALCIUM TOTAL 3D 34829 RAMÓN MELGAR RENDERING 2 [facility] INC INC W/INTERP& POSTPROC DIFF WORK STATION RADIOLOGI 48244 [facility] [place] OMAR MAT C 2 RADIOLOGY EXAMINATI ON KNEE 3 [place] [address] [facility] [place] OMAR MAT SCROTUM & 2 RADIOLOGY CONTENTS DUP-SCAN 73686 [facility] [place] SIMI [place] ARTL RAIZA 2 RADIOLOGY ABDL/PEL/ SCROT&/RP R ORGN LMT RADEX 95491 JENNIFER RODRIGUEZ FINGR [address] [facility] VIEWS RADEX 13220 GRACIE HOLLING[place]ORTH HAND 2 MEDICAL MINIMUM 3 SERV VIEWS FOUNDATIO RADEX 82364 [facility] [place] SCALF CLEMENTINE HAND 2 RADIOLOGY MINIMUM 3 VIEWS URNLS DIP 77885 RAMÓN MELGAR 2 [facility] STICK/TAB INC [place] [address] RAMÓN MELGAR SCROTUM & 2 [facility] CONTENTS INC INC RADEX 98208 JENNIFER RODRIGUEZ SPINE 2 [facility] AL 2/[address] LUMBAR 40939 [place] MERHAR SPINE 2 MEDICAL GAR W/O SERV CONTRAST FOUNDATIO MATERIAL SIMPLE 29016 OSWALDO CHACON REPAIR 2 JULIO JULIO SCALP/NEC K/AX/MAIRA T/TRUNK 2.5CM/< RADEX 29270 [facility] [place] TRISH HAND 2 RADIOLOGY RHO MINIMUM 3 VIEWS CUL BACT 68621 RAMÓN MELGAR AEROBIC 2 [facility] ADDL INC INC METHS DEFINITIV E EA ISOL CUL BACT 84858 RAMÓN MELGAR XCPT 2 [facility] URINE INC INC BLOOD/STO OL AEROBIC ISOL SUSCEPTIB 39687 RAMÓN MELGAR LTY STDY 2 [facility] ANTIMICRB INC INC IAL MICRO/AGA R DILUTJ INCISION 08851 RAMÓN MELGAR & 2 [facility] DRAINAGE INC INC ABSCESS SIMPLE/SI NGLE INCISION 21633 YARIEL MATTHEW & 2 EMERGENCY CONCHIS DRAINAGE SERVICES ABSCESS COMPLICAT ED/MULTIP LE RADEX 16263 [facility] SPINE 2 N N LUMBOSACR COMMUNTIY COMMUNTIY AL 2/3 HOSPITA HOSPITA VIEWS RADEX 63791 RAMÓN MELGAR SPINE 2 [facility] LUMBOSACR INC INC AL MINIMUM 4 VIEWS RADEX 86006 [facility] [place] OMAR MAT FINGR 2 RADIOLOGY MINIMUM 2 VIEWS APPLICATI 97930 DANNIELLE SPICER ON FINGER 1 ABD ABD SPLINT DYNAMIC WRIST L3807 [facility] HAND [facility] FINGR ORTHOPAED ORTHOS IC W/O JNT PREFAB CSTM FIT RADEX 29854 [facility] [place] OMAR MAT HAND 1 RADIOLOGY MINIMUM 3 VIEWS RADEX 17553 [place] DISANTIS HAND 1 MEDICAL REMINGTON MINIMUM 3 SERV VIEWS FOUNDATIO RADEX 15691 [facility] CELE ANKLE 1 MEDICAL MARIO COMPLETE IMAGING MINIMUM 3 ASS VIEWS CHIROPRAC 19588 ESCALANTE JULIO ESCALANTE JULIO TIC 1 MANIP[place]AT [place] SPINAL 3-4 REGIONS CHIROPRAC 89005 ESCALANTE JULIO ESCALANTE JULIO TIC 1 MANIPLTV TX EXTRASPIN AL 1/> REGION THERAPEUT 60854 ESCALANTE JULIO ESCALANTE JULIO IC PX 1/> 1 AREAS EACH 15 MIN EXERCISES MANUAL 99598 ESCALANTE JULIO ESCALANTE JULIO THERAPY 1 TQS 1/> REGIONS EACH 15 MINUTES APPL 71274 ESCALANTE JULIO ESCALANTE JULIO MODALITY 1 1/> AREAS TRACTION MECHANICA L APPL 78681 ESCALANTE JULIO ESCALANTE JULIO MODALITY 1 1/> AREAS ELEC STIMJ UNATTENDE D APPLICATI 35035 ESCALANTE JULIO ESCALANTE JULIO ON 1 MODALITY 1/> AREAS HOT/COLD PACKS APPL 22060 ESCALANTE JULIO ESCALANTE JULIO MODALITY 1 1/> AREAS ELEC STIMJ UNATTENDE D APPLICATI 28644 ESCALANTE JULIO ESCALANTE JULIO ON 1 MODALITY 1/> AREAS HOT/COLD PACKS APPL 31201 ESCALANTE JULIO ESCALANTE JULIO MODALITY 1 1/> AREAS TRACTION MECHANICA L MANUAL 15760 ESCALANTE JULIO ESCALANTE JULIO THERAPY 1 TQS 1/> REGIONS EACH 15 MINUTES THERAPEUT 75120 ESCALANTE JULIO ESCALANTE JULIO IC PX 1/> 1 AREAS EACH 15 MIN EXERCISES CHIROPRAC 03994 ESCALANTE JULIO ESCALANTE JULIO TIC 1 MANIPLTV TX EXTRASPIN AL 1/> REGION CHIROPRAC 91798 ESCALANTE JULIO ESCALANTE JULIO TIC 1 MANIPULAT [place] SPINAL 3-4 REGIONS CHIROPRAC 54055 ESCALANTE JULIO ESCALANTE JULIO TIC 1 MANIPULAT [place] SPINAL 3-4 REGIONS MANUAL 83871 ESCALANTE JULIO ESCALANTE JULIO THERAPY 1 TQS 1/> REGIONS EACH 15 MINUTES CHIROPRAC 75036 ESCALANTE JULIO ESCALANTE JULIO TIC 1 MANIPLTV TX EXTRASPIN AL 1/> REGION THERAPEUT 16828 ESCALANTE JULIO ESCALANTE JULIO IC PX 1/> 1 AREAS EACH 15 MIN EXERCISES APPL 66535 ESCALANTE JULIO ESCALANTE JULIO MODALITY 1 1/> AREAS TRACTION MECHANICA L APPL 75043 ESCALANTE JULIO ESCALANTE JULIO MODALITY 1 1/> AREAS ELEC STIMJ UNATTENDE D APPLICATI 88905 ESCALANTE JULIO ESCALANTE JULIO ON 1 MODALITY 1/> AREAS HOT/COLD PACKS APPL 06572 ESCALANTE JULIO ESCALANTE JULIO MODALITY 1 1/> AREAS TRACTION MECHANICA L APPLICATI 56590 ESCALANTE JULIO ESCALANTE JULIO ON 1 MODALITY 1/> AREAS HOT/COLD PACKS APPL 89710 ESCALANTE JULIO ESCALANTE JULIO MODALITY 1 1/> AREAS ELEC STIMJ UNATTENDE D CHIROPRAC 73269 ESCALANTE JULIO ESCALANTE JULIO TIC 1 MANIPLTV TX EXTRASPIN AL 1/> REGION THERAPEUT 06763 ESCALANTE JULIO ESCALANTE JULIO IC PX 1/> 1 AREAS EACH 15 MIN EXERCISES MANUAL 10367 ESCALANTE JULIO ESCALANTE JULIO THERAPY 1 TQS 1/> REGIONS EACH 15 MINUTES CHIROPRAC 66568 ESCALANTE JULIO ESCALANTE JULIO TIC 1 MANIPULAT [place] SPINAL 3-4 REGIONS CHIROPRAC 50215 ESCALANTE JULIO ESCALANTE JULIO TIC 1 MANIPULAT [place] SPINAL 3-4 REGIONS MANUAL 08059 ESCALANTE JULIO ESCALANTE JULIO THERAPY 1 TQS 1/> REGIONS EACH 15 MINUTES THERAPEUT 22586 ESCALANTE JULIO ESCALANTE JULIO IC PX 1/> 1 AREAS EACH 15 MIN EXERCISES CHIROPRAC 10-19-201 30842 ESCALANTE JULIO ESCALANTE JULIO TIC 1 MANIPLTV TX EXTRASPIN AL 1/> REGION APPL 55248 ESCALANTE JULIO ESCALANTE JULIO MODALITY 1 1/> AREAS ELEC STIMJ UNATTENDE D APPLICATI 73255 ESCALANTE JULIO ESCALANTE JULIO ON 1 MODALITY 1/> AREAS HOT/COLD PACKS APPL 24324 ESCALANTE JULIO ESCALANTE JULIO MODALITY 1 1/> AREAS TRACTION MECHANICA L APPL 77300 ESCALANTE JULIO ESCALANTE JULIO MODALITY 1 1/> AREAS TRACTION MECHANICA L APPLICATI 14415 SECALANTE JULIO ESCALANTE JULIO ON 1 MODALITY 1/> AREAS HOT/COLD PACKS THERAPEUT 78005 ESCALANTE JULIO ESCALANTE JULIO IC PX 1/> 1 AREAS EACH 15 MIN EXERCISES CHIROPRAC 03182 ESCALANTE JULIO ESCALANTE JULIO TIC 1 MANIPLTV TX EXTRASPIN AL 1/> REGION APPL 48604 ESCALANTE JULIO ESCALANTE JULIO MODALITY 1 1/> AREAS ELEC STIMJ UNATTENDE D MANUAL 55420 ESCALANTE JULIO ESCALANTE JULIO THERAPY 1 TQS 1/> REGIONS EACH 15 MINUTES CHIROPRAC 14011 ESCALANTE JULIO ESCALANTE JULIO TIC 1 MANIPULAT [place] SPINAL 3-4 REGIONS CHIROPRAC 89075 ESCALANTE JULIO ESCALANTE JULIO TIC 1 MANIPULAT [place] SPINAL 3-4 REGIONS CHIROPRAC 21916 ESCALANTE JULIO ESCALANTE JULIO TIC 1 MANIPLTV TX EXTRASPIN AL 1/> REGION MANUAL 99981 ESCALANTE JULIO ESCALANTE JULIO THERAPY 1 TQS 1/> REGIONS EACH 15 MINUTES THERAPEUT 68573 ESCALANTE JULIO ESCALANTE JULIO IC PX 1/> 1 AREAS EACH 15 MIN EXERCISES APPL 46195 ESCALANTE JULIO ESCALANTE JULIO MODALITY 1 1/> AREAS TRACTION MECHANICA L APPLICATI 01550 ESCALANTE JULIO ESCALANTE JULIO ON 1 MODALITY 1/> AREAS HOT/COLD PACKS APPL 17566 ESCALANTE JULIO ESCALANTE JULIO MODALITY 1 1/> AREAS ELEC STIMJ UNATTENDE D APPL 78568 ESCALANTE JULIO ESCALANTE JULIO MODALITY 1 1/> AREAS ELEC STIMJ UNATTENDE D APPLICATI 92488 ESCALANTE JULIO ESCALANTE JULIO ON 1 MODALITY 1/> AREAS HOT/COLD PACKS APPL 19458 ESCALANTE JULIO ESCALANTE JULIO MODALITY 1 1/> AREAS TRACTION MECHANICA L THERAPEUT 09777 ESCALANTE JULIO ESCALANTE JULIO IC PX 1/> 1 AREAS EACH 15 MIN EXERCISES MANUAL 09484 ESCALANTE JULIO ESCALANTE JULIO THERAPY 1 TQS 1/> REGIONS EACH 15 MINUTES CHIROPRAC 55744 ESCALANTE JULIO ESCALANTE JULIO TIC 1 MANIPLTV TX EXTRASPIN AL 1/> REGION CHIROPRAC 00997 ESCALANTE JULIO ESCALANTE JULIO TIC 1 MANIPULAT [place] SPINAL 3-4 REGIONS CHIROPRAC 06928 ESCALANTE JULIO ESCALANTE JULIO TIC 1 MANIPULAT [place] SPINAL 3-4 REGIONS MANUAL 20938 ESCALANTE JULIO ESCALANTE JULIO THERAPY 1 TQS 1/> REGIONS EACH 15 MINUTES CHIROPRAC 25172 ESCALANTE JULIO ESCALANTE JULIO TIC 1 MANIPLTV TX EXTRASPIN AL 1/> REGION THERAPEUT 82777 ESCALANTE JULIO ESCALANTE JULIO IC PX 1/> 1 AREAS EACH 15 MIN EXERCISES APPL 84104 ESCALANTE JULIO ESCALANTE JULIO MODALITY 1 1/> AREAS ELEC STIMJ UNATTENDE D APPL 88901 ESCALANTE JULIO ESCALANTE JULIO MODALITY 1 1/> AREAS TRACTION MECHANICA L APPLICATI 24345 ESCALANTE JULIO ESCALANTE JULIO ON 1 MODALITY 1/> AREAS HOT/COLD PACKS APPL 54611 ESCALANTE JULIO ESCALANTE JULIO MODALITY 1 1/> AREAS ELEC STIMJ UNATTENDE D APPLICATI 82670 ESCALANTE JULIO ESCALANTE JULIO ON 1 MODALITY 1/> AREAS HOT/COLD PACKS APPL 87524 ESCALANTE JULIO ESCALANTE JULIO MODALITY 1 1/> AREAS TRACTION MECHANICA L MANUAL 36468 ESCALANTE JULIO ESCALANTE JULIO THERAPY 1 TQS 1/> REGIONS EACH 15 MINUTES THERAPEUT 71116 ESCALANTE JULIO ESCALANTE JULIO IC PX 1/> 1 AREAS EACH 15 MIN EXERCISES CHIROPRAC 50659 ESCALANTE JULIO ESCALANTE JULIO TIC 1 MANIPLTV TX EXTRASPIN AL 1/> REGION CHIROPRA 44134 ESCALANTE JULIO ESCALANTE JULIO TIC 1 MANIPULAT [place] SPINAL 3-4 REGIONS CHIROPRA 11572 ESCALANTE JULIO ESCALANTE JULIO TIC 1 MANIPULAT [place] SPINAL 3-4 REGIONS CHIROPRA 05212 ESCALANTE JULIO ESCALANTE JULIO TIC 1 MANIPLTV TX EXTRASPIN AL 1/> REGION THERAPEUT 92162 ESCALANTE JULIO ESCALANTE JULIO IC PX 1/> 1 AREAS EACH 15 MIN EXERCISES MANUAL 70334 ESCALANTE JULIO ESCALANTE JULIO THERAPY 1 TQS 1/> REGIONS EACH 15 MINUTES APPL 61902 ESCALANTE JULIO ESCALANTE JULIO MODALITY 1 1/> AREAS ELEC STIMJ UNATTENDE D APPL 59638 ESCALANTE JULIO ESCALANTE JULIO MODALITY 1 1/> AREAS TRACTION MECHANICA L APPLICATI 12261 ESCALANTE JULIO ESCALANTE JULIO ON 1 MODALITY 1/> AREAS HOT/COLD PACKS APPLICATI 41183 ESCALANTE JULIO ESCALANTE JULIO ON 1 MODALITY 1/> AREAS HOT/COLD PACKS APPL 29498 ESCALANTE JULIO ESCALANTE JULIO MODALITY 1 1/> AREAS TRACTION MECHANICA L APPL 33495 ESCALANTE JULIO ESCALANTE JULIO MODALITY 1 1/> AREAS ELEC STIMJ UNATTENDE D MANUAL 29435 ESCALANTE JULIO ESCALANTE JULIO THERAPY 1 TQS 1/> REGIONS EACH 15 MINUTES THERAPEUT 94589 ESCALANTE JULIO ESCALANTE JULIO IC PX 1/> 1 AREAS EACH 15 MIN EXERCISES CHIROPRA 90623 ESCALANTE JULIO ESCALANTE JULIO TIC 1 MANIPLTV TX EXTRASPIN AL 1/> REGION CHIROPRA 88520 ESCALANTE JULIO ESCALANTE JULIO TIC 1 MANIPULAT [place] SPINAL 3-4 REGIONS CHIROPRA 26750 ESCALANTE JULIO ESCALANTE JULIO TIC 1 MANIPULAT [place] SPINAL 3-4 REGIONS CHIROPRA 72439 ESCALANTE JULIO ESCALANTE JULIO TIC 1 MANIPLTV TX EXTRASPIN AL 1/> REGION THERAPEUT 11152 ESCALANTE JULIO ESCALANTE JULIO IC PX 1/> 1 AREAS EACH 15 MIN EXERCISES MANUAL 28404 ESCALANTE JULIO ESCALANTE JULIO THERAPY 1 TQS 1/> REGIONS EACH 15 MINUTES APPL 73610 ESCALANTE JULIO ESCALANTE JULIO MODALITY 1 1/> AREAS ELEC STIMJ UNATTENDE D APPL 15252 ESCALANTE JULIO ESCALANTE JULIO MODALITY 1 1/> AREAS TRACTION MECHANICA L APPLICATI 67696 ESCALANTE JULIO ESCALANTE JULIO ON 1 MODALITY 1/> AREAS HOT/COLD PACKS APPLICATI 70256 ESCALANTE JULIO ESCALANTE JULIO ON 1 MODALITY 1/> AREAS HOT/COLD PACKS APPL 59340 ESCALANTE JULIO ESCALANTE JULIO MODALITY 1 1/> AREAS TRACTION MECHANICA L APPL 38123 ESCALANTE JULIO ESCALANTE JULIO MODALITY 1 1/> AREAS ELEC STIMJ UNATTENDE D THERAPEUT 46906 ESCALANTE JULIO ESCALANTE JULIO IC PX 1/> 1 AREAS EACH 15 MIN EXERCISES MANUAL 05828 ESCALANTE JULIO ESCALANTE JULIO THERAPY 1 TQS 1/> REGIONS EACH 15 MINUTES CHIROPRA 10500 ESCALANTE JULIO ESCALANTE JULIO TIC 1 MANIPULAT [place] SPINAL 3-4 REGIONS CHIROPRA 23809 ESCALANTE JULIO ESCALANTE JULIO TIC 1 MANIPLTV TX EXTRASPIN AL 1/> REGION CHIROPRA 51440 ESCALANTE JULIO ESCALANTE JULIO TIC 1 MANIPLTV TX EXTRASPIN AL 1/> REGION CHIROPRA 65766 ESCALANTE JULIO ESCALANTE JULIO TIC 1 MANIPULAT [place] SPINAL 3-4 REGIONS THERAPEUT 83055 ESCALANTE JULIO ESCALANTE JULIO IC PX 1/> 1 AREAS EACH 15 MIN EXERCISES MANUAL 51765 ESCALANTE JULIO ESCALANTE JULIO THERAPY 1 TQS 1/> REGIONS EACH 15 MINUTES APPL 99561 ESCALANTE JULIO ESCALANTE JULIO MODALITY 1 1/> AREAS ELEC STIMJ UNATTENDE D APPL 43409 ESCALANTE JULIO ESCALANTE JULIO MODALITY 1 1/> AREAS TRACTION MECHANICA L APPLICATI 16251 ESCALANTE JULIO ESCALANTE JULIO ON 1 MODALITY 1/> AREAS HOT/COLD PACKS APPL 67976 ESCALANTE JULIO ESCALANTE JULIO MODALITY 1 1/> AREAS TRACTION MECHANICA L APPL 65391 ESCALANTE JULIO ESCALANTE JULIO MODALITY 1 1/> AREAS ELEC STIMJ UNATTENDE D APPLICATI 64885 ESCALANTE JULIO ESCALANTE JULIO ON 1 MODALITY 1/> AREAS HOT/COLD PACKS THERAPEUT 30288 ESCALANTE JULIO ESCALANTE JULIO IC PX 1/> 1 AREAS EACH 15 MIN EXERCISES MANUAL 58593 ESCALANTE JULIO ESCALANTE JULIO THERAPY 1 TQS 1/> REGIONS EACH 15 MINUTES CHIROPRA 91785 ESCALANTE JULIO ESCALANTE JULIO TIC 1 MANIPLTV TX EXTRASPIN AL 1/> REGION CHIROPRAC 30814 ESCALANTE JULIO ESCALANTE JULIO TIC 1 MANIPULAT [place] SPINAL 3-4 REGIONS CHIROPRAC 87789 ESCALANTE JULIO ESCALANTE JULIO TIC 1 MANIPULAT [place] SPINAL 3-4 REGIONS CHIROPRAC 11106 ESCALANTE JULIO ESCALANTE JULIO TIC 1 MANIPLTV TX EXTRASPIN AL 1/> REGION THERAPEUT 56957 ESCALANTE JULIO ESCALANTE JULIO IC PX 1/> 1 AREAS EACH 15 MIN EXERCISES MANUAL 18153 ESCALANTE JULIO ESCALANTE JULIO THERAPY 1 TQS 1/> REGIONS EACH 15 MINUTES APPLICATI 86432 ESCALANTE JULIO ESCALANTE JULIO ON 1 MODALITY 1/> AREAS HOT/COLD PACKS APPL 68231 ESCALANTE JULIO ESCALANTE JULIO MODALITY 1 1/> AREAS ELEC STIMJ UNATTENDE D APPL 29269 ESCALANTE JULIO ESCALANTE JULIO MODALITY 1 1/> AREAS TRACTION MECHANICA L APPL 06696 ESCALANTE JULIO ESCALANTE JULIO MODALITY 1 1/> AREAS ELEC STIMJ UNATTENDE D APPL 05009 ESCALANTE JULIO ESCALANTE JULIO MODALITY 1 1/> AREAS TRACTION MECHANICA L APPLICATI 76679 ESCALANTE JULIO ESCALANTE JULIO ON 1 MODALITY 1/> AREAS HOT/COLD PACKS CHIROPRAC 87837 ESCALANTE JULIO ESCALANTE JULIO TIC 1 MANIPLTV TX EXTRASPIN AL 1/> REGION MANUAL 45967 ESCALANTE JULIO ESCALANTE JULIO THERAPY 1 TQS 1/> REGIONS EACH 15 MINUTES THERAPEUT 27907 ESCALANTE JULIO ESCALANTE JULIO IC PX 1/> 1 AREAS EACH 15 MIN EXERCISES CHIROPRAC 85420 ESCALANTE JULIO ESCALANTE JULIO TIC 1 MANIPULAT [place] SPINAL 3-4 REGIONS CHIROPRAC 65882 ESCALANTE JULIO ESCALANTE JULIO TIC 1 MANIPULAT [place] SPINAL 3-4 REGIONS THERAPEUT 57599 ESCALANTE JULIO ESCALANTE JULIO IC PX 1/> 1 AREAS EACH 15 MIN EXERCISES MANUAL 13369 ESCALANTE JULIO ESCALANTE JULIO THERAPY 1 TQS 1/> REGIONS EACH 15 MINUTES CHIROPRA 64631 ESCALANTE JULIO ESCALANTE JULIO TIC 1 MANIPLTV TX EXTRASPIN AL 1/> REGION APPLICATI 55708 ESCALANTE JULIO ESCALANTE JULIO ON 1 MODALITY 1/> AREAS HOT/COLD PACKS APPL 73063 ESCALANTE JULIO ESCALANTE JULIO MODALITY 1 1/> AREAS TRACTION MECHANICA L APPL 78672 ESCALANTE JULIO ESCALANTE JULIO MODALITY 1 1/> AREAS ELEC STIMJ UNATTENDE D RADEX 12925 [facility] FOOT 1 Y Y COMPLETE [facility] MINIMUM 3 VIEWS RADEX 98825 [facility] [place] TRISH FOOT 1 RADIOLOGY RHO COMPLETE MINIMUM 3 VIEWS APPL 43706 ESCALANTE JULIO ESCALANTE JULIO MODALITY 1 1/> AREAS ELEC STIMJ UNATTENDE D APPL 07490 ESCALANTE JULIO ESCALANTE JULIO MODALITY 1 1/> AREAS TRACTION MECHANICA L APPLICATI 20277 ESCALANTE JULIO ESCALANTE JULIO ON 1 MODALITY 1/> AREAS HOT/COLD PACKS CHIROPRAC 91033 ESCALANTE JULIO ESCALANTE JULIO TIC 1 MANIPLTV TX EXTRASPIN AL 1/> REGION MANUAL 57600 ESCALANTE JULIO ESCALANTE JULIO THERAPY 1 TQS 1/> REGIONS EACH 15 MINUTES THERAPEUT 60018 ESCALANTE JULIO ESCALANTE JULIO IC PX 1/> 1 AREAS EACH 15 MIN EXERCISES CHIROPRAC 58453 ESCALANTE JULIO ESCALANTE JULIO TIC 1 MANIPULAT [place] SPINAL 3-4 REGIONS CHIROPRAC 12267 ESCALANTE JULIO ESCALANTE JULIO TIC 1 MANIPULAT [place] SPINAL 3-4 REGIONS THERAPEUT 21004 ESCALANTE JULIO ESCALANTE JULIO IC PX 1/> 1 AREAS EACH 15 MIN EXERCISES MANUAL 02592 ESCALANTE JULIO ESCALANTE JULIO THERAPY 1 TQS 1/> REGIONS EACH 15 MINUTES CHIROPRAC 35529 ESCALANTE JULIO ESCALANTE JULIO TIC 1 MANIPLTV TX EXTRASPIN AL 1/> REGION APPLICATI 36694 ESCALANTE JULIO ESCALANTE JULIO ON 1 MODALITY 1/> AREAS HOT/COLD PACKS APPL 55585 ESCALANTE JULIO ESCALANTE JULIO MODALITY 1 1/> AREAS TRACTION MECHANICA L APPL 26861 ESCALANTE JULIO ESCALANTE JULIO MODALITY 1 1/> AREAS ELEC STIMJ UNATTENDE D APPL 93605 ESCALANTE JULIO ESCALANTE JULIO MODALITY 1 1/> AREAS ELEC STIMJ UNATTENDE D APPL 65735 ESCALANTE JULIO ESCALANTE JULIO MODALITY 1 1/> AREAS TRACTION MECHANICA L APPLICATI 75485 ESCALANTE JULIO ESCALANTE JULIO ON 1 MODALITY 1/> AREAS HOT/COLD PACKS CHIROPRAC 63896 ESCALANTE JULIO ESCALANTE JULIO TIC 1 MANIPLTV TX EXTRASPIN AL 1/> REGION MANUAL 54972 ESCALANTE JULIO ESCALANTE JULIO THERAPY 1 TQS 1/> REGIONS EACH 15 MINUTES THERAPEUT 10235 ESCALANTE JULIO ESCALANTE JULIO IC PX 1/> 1 AREAS EACH 15 MIN EXERCISES CHIROPRAC 13283 ESCALANTE JULIO ESCALANTE JULIO TIC 1 MANIPULAT [place] SPINAL 3-4 REGIONS RADEX 13985 [facility] [place] KOSTELIC SPINE 1 RADIOLOGY VINICIO LUMBOSACR AL 2/3 VIEWS CHIROPRAC 29410 ESCALANTE JULIO ESCALANTE JULIO TIC 1 MANIPULAT [place] SPINAL 3-4 REGIONS MANUAL 47357 ESCALANTE JULIO ESCALANTE JULIO THERAPY 1 TQS 1/> REGIONS EACH 15 MINUTES CHIROPRAC 09806 ESCALANTE JULIO ESCALANTE JULIO TIC 1 MANIPLTV TX EXTRASPIN AL 1/> REGION THERAPEUT 86895 ESCALANTE JULIO ESCALANTE JULIO IC PX 1/> 1 AREAS EACH 15 MIN EXERCISES APPL 27755 ESCALANTE JULIO ESCALANTE JULIO MODALITY 1 1/> AREAS ELEC STIMJ UNATTENDE D APPLICATI 83985 ESCALANTE JULIO ESCALANTE JULIO ON 1 MODALITY 1/> AREAS HOT/COLD PACKS APPL 42733 ESCALANTE JULIO ESCALANTE JULIO MODALITY 1 1/> AREAS TRACTION MECHANICA L APPL 58319 ESCALANTE JULIO ESCALANTE JULIO MODALITY 1 1/> AREAS TRACTION MECHANICA L APPLICATI 46177 ESCALANTE JULIO ESCALANTE JULIO ON 1 MODALITY 1/> AREAS HOT/COLD PACKS APPL 78173 ESCALANTE JULIO ESCALANTE JULIO MODALITY 1 1/> AREAS ELEC STIMJ UNATTENDE D THERAPEUT 96133 ESCALANTE JULIO ESCALANTE JULIO IC PX 1/> 1 AREAS EACH 15 MIN EXERCISES CHIROPRA 72676 ESCALANTE JULIO ESCALANTE JULIO TIC 1 MANIPLTV TX EXTRASPIN AL 1/> REGION MANUAL 30028 ESCALANTE JULIO ESCALANTE JULIO THERAPY 1 TQS 1/> REGIONS EACH 15 MINUTES CHIROPRA 44424 ESCALANTE JULIO ESCALANTE JULIO TIC 1 MANIPULAT [place] SPINAL 3-4 REGIONS CHIROPRAC 82106 ESCALANTE JULIO ESCALANTE JULIO TIC 1 MANIPULAT [place] SPINAL 3-4 REGIONS CHIROPRA 48377 ESCALANTE JULIO ESCALANTE JULIO TIC 1 MANIPLTV TX EXTRASPIN AL 1/> REGION THERAPEUT 68296 ESCALANTE JULIO ESCALANTE JULIO IC PX 1/> 1 AREAS EACH 15 MIN EXERCISES MANUAL 24664 ESCALANTE JULIO ESCALANTE JULIO THERAPY 1 TQS 1/> REGIONS EACH 15 MINUTES APPL 83833 ESCALANTE JULIO ESCALANTE JULIO MODALITY 1 1/> AREAS ELEC STIMJ UNATTENDE D APPLICATI 76756 ESCALANTE JULIO ESCALANTE JULIO ON 1 MODALITY 1/> AREAS HOT/COLD PACKS APPL 79565 ESCALANTE JULIO ESCALANTE JULIO MODALITY 1 1/> AREAS TRACTION MECHANICA L APPL 43032 ESCALANTE JULIO ESCALANTE JULIO MODALITY 1 1/> AREAS TRACTION MECHANICA L APPLICATI 28366 ESCALANTE JULIO ESCALANTE JULIO ON 1 MODALITY 1/> AREAS HOT/COLD PACKS APPL 87314 ESCALANTE JULIO ESCALANTE JULIO MODALITY 1 1/> AREAS ELEC STIMJ UNATTENDE D CHIROPRAC 61237 ESCALANTE JULIO ESCALANTE JULIO TIC 1 MANIPLTV TX EXTRASPIN AL 1/> REGION THERAPEUT 84863 ESCALANTE JULIO ESCALANTE JULIO IC PX 1/> 1 AREAS EACH 15 MIN EXERCISES MANUAL 35600 ESCALANTE JULIO ESCALANTE JULIO THERAPY 1 TQS 1/> REGIONS EACH 15 MINUTES CHIROPRAC 87101 ESCALANTE JULIO ESCALANTE JULIO TIC 1 MANIPULAT [place] SPINAL 3-4 REGIONS RADIOLOGI 80617 [facility] [place] OMAR MAT C EXAM 1 RADIOLOGY CHEST 2 VIEWS FRONTAL&L ATERAL RADEX 17774 [facility] MAG[facility] SPINE 1 Y OF MUR THORACIC [place] 2 VIEWS HOSPI RADEX 36030 [place] DESI SPINE 1 MEDICAL JULIO THORACIC SERV 2 VIEWS FOUNDATIO RADIOLOGI 12031 [place] DESI C EXAM 1 MEDICAL JULIO CHEST 2 SERV VIEWS FOUNDATIO FRONTAL&L ATERAL RADEX 34689 [facility] [place] LASHAE ELBOW 1 RADIOLOGY DANNI COMPLETE [place]IMUM 3 [place] [address] CHIPPS MOSES JAM SURG 1 MARLON & PATHOLOGY TING GROSS&CONCHIS ROSCOPIC EXAM RPR 50189 VENGUSWAM VENGUSWAM UMBILICAL 1 Y CATARINA Y CATARINA HRNA 5 YRS/> REDUCIBLE SIMPLE 55091 YARIEL GALO REPAIR 1 EMERGENCY CHAU SCALP/NEC SERVICES K/AX/MAIRA T/TRUNK 2.5CM/< URNLS DIP 19020 [facility] 1 N N STICK/TAB [facility] HOSPITA REAGENT AUTO MICROSCOP Y THERAPEUT 07664 [facility] IC 1 N N PROPHYLAC [facility] TIC/DX HOSPITA HOSPITA INJECTION SUBQ/IM BASIC 70722 [facility] METABOLIC 1 N N PANEL [facility] CALCIUM [facility] HOSPITA TOTAL RADIOLOGI 13311 [facility] GRACIE Freeman EXAM 1 RADIOLOGY CHEST 2 VIEWS FRONTAL&L ATERAL COLLECTIO 97761 [facility] N VENOUS 1 N N BLOOD [facility] HOSPITA URE BLOOD 56676 [facility] COUNT 1 N N SMEAR [facility] MCRSCP [facility]ITA HOSPITA W/MNL DIFRNTL WBC COUNT BLOOD 77735 [facility] COUNT 1 N N COMPLETE [facility] AUTOMATED [facility] HOSPITA THROMBOPL 52248 [facility] ASTIN 1 N N TIME [facility] PART[facility] HOSPITA PLASMA/WH OLE BLOOD ECG 64777 [facility] ROUTINE 1 N N ECG [facility] W/LEAST HOSPITA HOSPITA 12 LDS TRCG ONLY W/O I&R PROTHROMB 61140 [facility] IN TIME 1 N N [facility]OSPITA IMMUNOASS 28357 [facility] DANNIELLE AY NFCT 1 N URGENT ABD AGT ANTB CARE QUAL/SEMI LOUIE 1 STEP BLOOD 34158 [facility] DANNIELLE OCCULT 1 N URGENT ABD PEROXIDAS CARE E ACTV QUAL FECES 1 DETER SERVICES 32373 [facility] DANNIELLE PROVIDED 1 N URGENT ABD OFFICE CARE OTH/THN REG SCHED HOURS MRI ANY 84377 [facility] GRACIE GE JT LOWER 1 RADIOLOGY EXTREM W/O CONTRAST MATRL SERVICES 16321 [facility] DANNIELLE PROVIDED 1 N URGENT ABD OFFICE CARE OTH/THN REG SCHED HOURS HEPATITIS 98640 [facility] B CORE 1 N N ANTIBODY [facility] HOSPITA TOTAL HEPATITIS 80492 [facility] B SURF 1 N N ANTIBODY [facility] HBS[facility] HOSPITA HEPATITIS 35747 [facility] A 1 N N ANTIBODY [facility]AAB [facility] HOSPITA COLLECTIO 68062 [facility] N VENOUS 1 N N BLOOD [facility] HOSPITA URE ACUTE 24019 [facility] HEPATITIS 1 N N PANEL [facility] HOSPITA RADIOLOGI 58804 [facility] [place] OMAR MAT C 1 RADIOLOGY EXAMINATI ON KNEE 3 VIEWS THERAPEUT 18643 [facility] AUSTENBETSY IC 1 N URGENT ABD PROPHYLAC CARE TIC/DX INJECTION SUBQ/IM ECG 21285 [facility] ROUTINE 0 ANNITA ADR ECG CARDIOLOG W/LEAST Y CLINIC 12 LDS W/I&R ACUTE 02418 [facility] HEPATITIS 0 N N PANEL [facility]OSPITA COLLECTIO 21662 [facility] N VENOUS 0 N N BLOOD [facility] [place] [address] [facility] [place] MOAR MAT ABDOMINAL 0 RADIOLOGY REAL TIME W/IMAGE LIMITED LIPID 68376 [facility] PANEL 0 N N [facility] COMPREHEN 18661 [facility] SIVE 0 N N METABOLIC [facility] HOSPITA HOSPITA COLLECTIO 34991 [facility] N VENOUS 0 N N BLOOD [facility] [place] [address] [facility] THYROID 0 N N STIMULATI [facility] HOSPITA HOSPITA HORMONE TSH SERVICES 79788 [facility] AUSTENLEELAMichelle PROVIDED 0 N URGENT ABD OFFICE CARE OTH/THN REG SCHED HOURS MRI 37539 [facility] [place] TRISH SPINAL 0 RADIOLOGY RHO CANAL CERVICAL W/O CONTRAST MATRL RADEX 69821 RAMÓN MELGAR ELBOW 0 [facility] COMPLETE INC INC MINIMUM 3 VIEWS GLUCOSE 99638 [facility] DANNIELLE QUANTITAT 0 N URGENT ABD CLARY BLOOD CARE XCPT REAGENT STRIP HEMOGLOBI 78101 [facility] N 0 [facility] GLYCOSYLA THERESA A1C BLOOD 22530 [facility] COUNT 0 [facility] COMPLETE AUTO&[place] [address] [facility] FOLIC 0 [facility] ACID SERUM COMPREHEN 33385 [facility] SIVE 0 [facility] METABOLIC PANEL SERVICES 72812 [facility] DANNIELLE PROVIDED 0 N URGENT ABD OFFICE CARE OTH/THN REG SCHED HOURS NDL EMG 1 31644 GARCÍA TRA GARCÍA TRA XTR W/WO 0 RELATED PARASPINA L AREAS NRV CNDJ 70009 GARCÍA TRA GARCÍA TRA AMPLT&LAT 0 NCY EA NRV MOTR W/O F-WAVE STD NRV CNDJ 21647 GARCÍA TRA GARCÍA TRA AMPLT&LAT 0 ENCY EA NRV MOTOR W/F-WAVE STD NRV CNDJ 83561 GARCÍA TRA GARCÍA TRA AMPLITUDE 0 & LATENCY EACH NERVE SENSORY RADEX 14189 [facility] ELBOW 0 N N COMPLETE [facility] MINIMUM 3 HOSPITA HOSPITA VIEWS RADEX 25878 [facility] [place] OMAR MAT HAND 0 RADIOLOGY MINIMUM 3 VIEWS RADEX 96077 [facility] [place] OMAR MAT SPINE 0 RADIOLOGY LUMBOSACR AL 2/3 VIEWS RADEX 73815 [facility] [place] OMAR MAT WRIST 0 RADIOLOGY COMPLE[place] MIN[address] [place] [address] [facility] [place] OMAR MAT ABDOMEN 0 RADIOLOGY W/CONTRAS T MATERIAL CT PELVIS 31474 [facility] [place] OMAR MAT 0 RADIOLOGY W/CONTRAS T MATERIAL RADEX 89018 [place] NICKELS SPINE 0 MEDICAL [place] LUMBOSACR SERV AL 2/3 FOUNDATIO VIEWS RADEX 83622 [place] BANDAR SPINE 0 MEDICAL STEPH LUMBOSACR IMAGING AL ASS MINIMUM 4 VIEWS RADEX 01986 RAMÓN RAMOSON SPINE 0 [facility] THORACIC INC INC 3 VIEWS RADEX 15464 [place] BANDAR SPINE 0 MEDICAL STEPH CERVICAL IMAGING 6 OR MORE ASS VIEWS RADEX 43703 [facility] [place] OMAR, FOOT 0 RADIOLOGY WILLIAM Hahn COMPLETE MINIMUM 3 VIEWS RADEX TOE 82688 [place] CELE MINIMUM 0 MEDICAL MARIO 2 VIEWS IMAGING ASS URNLS DIP 97602 RAMÓN MELGAR 0 [facility] STICK/TAB INC INC LET REAGENT AUTO MICROSCOP Y URNLS DIP 57625 [facility] 0 [facility] STICK/TAB [facility] LET REAGENT AUTO MICROSCOP Y COLLECTIO 71147 [facility] N VENOUS 0 [facility] VENIPUNCT URE CUL BACT 38023 [facility] XCPT 0 [facility] BLOOD/STO OL AEROBIC ISOL BLOOD 26754 [facility] COUNT 0 [facility] AUTO&AUTO DIFRNTL WBC CULTURE 51066 [facility] BACTERIAL 0 [facility] QUANTTATI VE COLONY COUNT URINE SUSCEPTIB 76387 [facility] LTY STDY 0 [facility] IAL MICRO/AGA R DILUTJ BASIC 13617 [facility] METABOLIC 0 [facility] CALCIUM TOTAL RADEX 79655 [facility] [place] TRISH, ELBOW 0 RADIOLOGY HALLIE G COMPLETE MINIMUM 3 VIEWS DUP-SCAN 54940 [facility] [place] WESTERFIE XTR VEINS 0 RADIOLOGY LD, A D UNILATERA L/LIMITED STUDY RADEX 49102 [facility] [place] MARTINEZ, G ELBOW 2 0 RADIOLOGY T VIEWS NONINVASI 26918 [facility] VE 0 Y Y EAR[facility] HOSPITAL OXIMETRY SINGLE DETER NONINVASI 86565 [facility] Y Y [facility] HOSPITAL OXIMETRY SINGLE DETER RADEX 87056 [facility] SACRUM & 0 Y Y [facility] MINIMUM 2 VIEWS RADEX TOE 64065 [facility] MINIMUM [address] RADEX [address]909 [place] FRANK, FOOT 0 MEDICAL VALERIE N COMPLETE SERV MINIMUM 3 FOUNDATIO VIEWS CUL BACT 98216 JENNIFER RODRIGUEZ XCPT 9 [facility] BLOOD/STO OL AEROBIC ISOL SUSCEPTIB 39961 JENNIFER RODRIGUEZ LTY STDY 9 [facility] IAL MICRO/AGA R DILUTJ RADEX 95727 [facility] SPINE [address] [place] [address] LUMBOSACR AL 2/3 VIEWS INJECTION J1885 [address] KETOROLAC TROMETHAM INE PER 15 MG THERAPEUT 89236 [facility] IC [address] [place] [address] PROPHYLAC TIC/DX INJECTION SUBQ/IM RADIOLOGI 46214 [facility] GRACIE UREÑA C 9 RADIOLOGY J EXAMINATI ON TIBIA & FIBULA 2 VIEWS RADEX 07684 [facility] GRACIE UREÑA ANKLE 9 RADIOLOGY J COMPLETE MINIMUM 3 VIEWS STRAPPING 95480 [facility] AHMED, ANKLE 9 JEFFY SMITH &/FOOT EMERGENCY A PHYS INC ANES 39395 SHANIA SYG 9 ANESTHESI MIKE J MUSC & A GROUP NRV HEAD PSC NECK&POST ERIOR TRUNK LEVEL III 15238 PATHOLOGY PATHOLOGY SURG 9 & & PATHOLOGY CYTOLOGY CYTOLOGY LAB LAB GROSS&CONCHIS ROSCOPIC EXAM EXCISION 75482 SCHULSTDEA SCHULSTAD PILONIDAL 9 , QUITA , QUITA CYST/SINU S SIMPLE COLLECTIO 96790 JENNIFRE RODRIGUEZ N VENOUS 9 [facility] VENIPUNCT URE BLOOD 08636 JENNIFER RODRIGUEZ COUNT 9 [facility] AUTO&AUTO DIFRNTL WBC BASIC 56920 JENNIFER RODRIGUEZ METABOLIC 9 [facility] CALCIUM TOTAL SUSCEPTIB 85310 RAMÓN MELGAR LTY STDY 9 [facility] ANTIMICRB INC INC IAL MICRO/AGA R DILUTJ CUL BACT 84778 RAMÓN MELGAR AEROBIC 9 [facility] ADDL INC INC METHS DEFINITIV E EA ISOL CUL BACT 81973 RAMÓN MELGAR XCPT 9 [facility]OS[facility] URINE INC INC BLOOD/STO OL AEROBIC ISOL RADEX 81734 [facility] [place] SCALF, FOOT 9 RADIOLOGY BOY E COMPLETE MINIMUM 3 VIEWS RADEX 27772 [facility] [place] SCALF, ANKLE 9 RADIOLOGY BOY E COMPLETE MINIMUM 3 VIEWS APPLICATI 50224 [facility] SHORT 9 JEFFY W E LEG EMERGENCY SPLINT PHYS INC CALF FOOT RADEX 20188 JENNIFER BOJASVIRON SPINE 9 [facility] AL 2/3 VIEWS RADEX 46407 RAMÓN MELGAR SPINE 9 [facility]OS[facility] LUMBOSACR INC INC AL MINIMUM 4 VIEWS RADIOLOGI 11220 RAMÓN MELGAR C 9 [facility] EXAMINATI INC INC ON PELVIS 1/2 VIEWS BASIC 63269 RAMÓN MELGAR METABOLIC 9 [facility] PANEL INC INC CALCIUM TOTAL 3D 48421 RAMÓN MELGAR RENDERING 9 [facility] INC INC W/INTERP& POSTPROC DIFF WORK STATION URNLS DIP 98645 RAMÓN MELGAR 9 [facility] HOS[facility] STICK/TAB INC INC LET REAGENT AUTO MICROSCOP Y BLOOD 66643 RAMÓN MELGAR COUNT 9 [facility] COMPLETE INC INC AUTO&[place] [address] [place] BANDAR, ABDOMEN 9 MEDICAL PITER P W/O IMAGING CONTRAST ASSOCIATE MATERIAL S CT PELVIS 61329 [place] BANDAR, W/O 9 MEDICAL PITER P CONTRAST IMAGING MATERIAL ASSOCIATE S THERAPEUT [address] PROPHYLAC TIC/DX INJECTION SUBQ/IM CUL BACT 92225 [facility] XCPT [address] [place] [address] URINE BLOOD/STO OL AEROBIC ISOL SMR PRIM [address] GRAM/GIEM SA STAIN BCT FUNGI/GAYATRI L RADEX 06118 [facility] [place] NIRANJAN, SPINE 9 RADIOLOGY J LUMBOSACR AL 2/3 VIEWS EXCISION 39026 Timur AMIN PILONIDAL 9 MEDICAL D SERV CYST/SINU FOUNDATIO S SIMPLE LEVEL III 51076 [place] DIANN SURG 9 MEDICAL BRILL, PATHOLOGY SERV LUIS DANIEL Hdz FOUNDATIO GROSS&CONCHIS ROSCOPIC EXAM INJECTION J1100 [facility] 9 Y Y DEXAMETHO [facility] SONE SODIUM PHOSPHATE 1 MG INJECTION J2175 [facility] 9 Y Y MEPERIDIN [facility] E HCL PER 100 MG RINGERS J7120 [facility] LACTATE 9 Y Y INFUSION [facility] UP TO 1000 CC EXCISION 81148 [facility] PILONIDAL 9 Y Y [facility] CYST/SINU S EXTENSIVE ANES 84676 [place] RODRIGUEZ, INTEG 9 MEDICAL RUI MUSC & SERVICES NRV HEAD NECK&POST ERIOR TRUNK INJECTION J2250 [facility] 9 Y Y MIDAZOLAM [facility] HCL PER 1 MG INJECTION J2270 [facility] MORPHINE 9 Y Y SULFATE [facility] UP TO 10 MG INJECTION J3010 [facility] FENTANYL 9 Y Y CITRATE [facility] 0.1 MG UNCLASSIF J3490 [facility] IED DRUGS 9 Y Y HOSPITAL HOSPITAL INJECTION J2405 [facility] 9 [facility] PER 1 MG HEPATIC 71180 [facility] FUNCTION 9 IOWA INC IOWA INC PANEL INJECTION J2765 [facility] 9 Y Y METOCLOPR [facility] AMIDE HCL UP TO 10 MG INFUSION J7030 [facility] NORMAL 9 Y Y SALINE [facility] SOLUTION 1000 CC INJECTION J1200 [facility] 9 Y Y DIPHENHYD [facility] RAMINE HCL UP TO 50 MG INJECTION J1885 [facility] 9 Y Y KETOROLAC [facility] TROMETHAM INE PER 15 MG MYOCRD 04500 CARDIOLOG [place] [place] STD 8 Y EMILIE Mckeon WALL ASSOCIATE MOTION S OF QUAL/LOUIE [place] STD MYOCRD 30891 CARDIOLOG [place] [place] IMG 8 Y EMILIE Mckeon TOMOG ASSOCIATE SPECT HOSPITAL PERSONNEL DIRECTOR S OF STD [place] MYOCRD 80045 CARDIOLOG [place] STD 8 Y EMILIE Mckeon EJEC FXJ ASSOCIATE S OF [place] CV STRS 39595 CARDIOLOG DINO, TST 8 Y EMILIE Mckeon XERS&/OR ASSOCIATE RX CONT S OF ECG [place] W/SI&R COLLECTIO 09370 [facility] N VENOUS 8 N N BLOOD [facility] URE BLOOD 97525 [facility] COUNT 8 N N [facility] AUTO&AUTO [facility] DIFRNTL WBC LIPID 53770 [facility] PANEL 8 N N [facility] COMPREHEN 83756 [facility] SIVE 8 N N [facility] COMPREHEN 04644 OFFICE OFFICE SIVE 8 [facility] METABOLIC DIAGNOSTI DIAGNOSTI PANEL C C SERVICES SERVICES ECG 74619 CARDIOLOG DINO, ROUTINE 8 Y EMILIE S ECG ASSOCIATE W/LEAST S OF 12 LDS [place] W/I&R CREATINE 18674 [facility] KINASE MB 8 N N [facility] ECG 04666 [facility] ROUTINE 8 N N ECG [facility] 12 LDS TRG ONLY W/O I&R CREATINE 28000 [facility] KINASE 8 N N TOTAL [facility] BLOOD 75381 [facility] COUNT 8 N N [facility] AUTOAUTO [facility] [place] [address] [facility] TROPONIN 8 N N QUANTITAT [facility] RADIOLOGI 64573 [facility] Lydia ANDUJAR 8 RADIOLOGY J EXAMINATI ON CHEST SINGLE VIEW FRONTAL COLLECTIO 87742 [facility] N VENOUS 8 N N BLOOD [facility] URE COMPREHEN 39267 [facility] SIVE 8 N N [facility] AMB A0427 [facility] SERVICE 8 N-DIANE Peterson-DIANE ALS CO EMS CO EMS EMERGENCY TRANSPORT LEVEL 1 ECG 32525 [facility] CELLAROSI ROUTINE 8 JEFFY - YORBA, ECG EMERGENCY BLANCO W/LEAST PHYS INC M 12 LDS I&R ONLY GROUND A0425 [facility] MILEAGE 8 N-DIANE N-DIANE PER CO EMS CO EMS STATUTE MILE INITIAL 48613 [facility] OBSERVATI 8 N N ON [facility] H[facility]PITAL 30 MINUTES ECG 24746 [facility] AHMED, ROUTINE 8 JEFFY SMITH ECG EMERGENCY A W/LEAST PHYS INC 12 LDS I&R ONLY RADIOLOGI 49663 [facility] AHMED, C 8 JEFFY SMITH EXAMINATI EMERGENCY A ON CHEST PHYS INC SINGLE VIEW FRONTAL Encounters Encounter Start End Date Code Location Performer Type Date EMERGENCY 77792 [facility] DEPT 7 7 EMERGENCY VISIT PHYS PSC HIGH SEVERITY& THREAT [facility] RAMÓN - 7 7 [facility] OUTPATIEN INC T EMERGENCY 04378 [facility] 7 7 PHYSICIAN U [facility] HIGH/URGE NT SEVERITY EMERGENCY 02945 RAMÓN 7 7 [facility] DEPARTMEN INC T VISIT LOW/MODER SEVERITY HOSPITAL RAMÓN - 7 7 [facility] OUTPATIEN INC T EMERGENCY 85106 RAMÓN 7 7 [facility] DEPARTMEN INC T VISIT LOW/MODER SEVERITY EMERGENCY 36711 [facility] DIAL 7 7 PHYSICIAN DE[facility]MEN [facility], [facility] VISIT MODERATE SEVERITY EMERGENCY 86112 [facility] CHARLY 7 7 JEFFY DEPARTMEN EMERGENCY T VISIT PHYS HIGH/URGE NT SEVERITY EMERGENCY 78490 [facility] CALDER[facility] 7 7 PHYSICIAN DEPARTMEN S, [facility] VISIT MODERATE SEVERITY HOSPITAL RAMÓN - 7 7 [facility] OUTPATIEN INC T EMERGENCY 03086 RAMÓN 7 7 [facility] DEPARTMEN INC T VISIT LOW/MODER SEVERITY EMERGENCY 82211 7 7 [facility] DEPARTMEN E T VISIT HOSPITALS HIGH/URGE NT SEVERITY [facility] - 7 7 [facility] OUTPATIEN E T HOSPITALS OFFICE 74113 [facility] 7 7 [place] T NEW 30 PHYSICIAN MINUTES S ASSIST EMERGENCY 02444 [facility] 7 7 Y OF [place] DEPARTMEN PHYSICIAN T VISIT S MODERATE SEVERITY [facility]OSP[facility] - 7 7 [facility] OUTPATIEN E T HOSPITALS OFFICE 03242 [facility]ENN[facility]ER [facility] 7 7 PHYSICIAN T VISIT PRACTICE 15 L MINUTES OFFICE 45226 [facility] 7 7 PHYSICIAN T NEW 30 PRACTICE MINUTES L EMERGENCY 96806 [facility] 7 7 JEFFY DEPARTMEN EMERGENCY T VISIT PHYS MODERATE SEVERITY OFFICE 36609 [facility] 7 7 MEDICAL T NEW 45 SERV MINUTES FOUNDATIO N EMERGENCY 06023 GRACIE DELAROSA 6 6 MEDICAL DEPARTMEN SERV T VISIT FOUNDATIO MODERATE N SEVERITY [facility]OSP[facility] - 6 6 [facility] OUTPATIEN E T HOSPITALS EMERGENCY 77485 6 6 [facility] DEPARTMEN E T VISIT HOSPITALS HIGH/URGE NT SEVERITY [facility] - 6 6 [facility] OUTPATIEN E T HOSPITALS EMERGENCY 28803 GRACIE GIL 6 6 MEDICAL DEPARTMEN SERV T VISIT FOUNDATIO HIGH/URGE N NT SEVERITY EMERGENCY 20631 [facility] 6 6 [place] DEPARTMEN PHYSICIAN T VISIT S ASSIST LOW/MODER SEVERITY HOSPITAL [facility] 6 6 N OUTPATIEN COMMUNTIY T HOSPITA EMERGENCY 85555 [facility] 6 6 N DEPARTMEN COMMUNTIY T VISIT HOSPITA HIGH/URGE NT SEVERITY EMERGENCY 89148 [place] KANDI 6 6 MEDICAL DEPARTMEN SERV T VISIT FOUNDATIO LOW/MODER N SEVERITY EMERGENCY 23161 6 6 [facility] DEPARTMEN E T VISIT HOSPITALS LOW/MODER SEVERITY [facility] - 6 6 [facility] OUT[facility] T [facility]OSPITALS OFFICE 80027 JENNIFER MALU [place] OUTPATIEN 6 6 PHYSICIAN T NEW 30 PRACTICE MINUTES L [facility] - 6 6 [facility] OUTPATIEN [facility] T HOSPITALS EMERGENCY 85147 6 6 [facility] DEPARTMEN E T VISIT HOSPITALS LOW/MODER SEVERITY EMERGENCY 85496 GRACIE SURAJ CARL 6 6 MEDICAL DEPARTMEN SERV T VISIT FOUNDATIO MODERATE N SEVERITY HOSPITAL [facility] - 6 6 [facility] OUTPATIEN INC T EMERGENCY 03111 [facility] 6 6 [facility] DEPARTMEN INC T VISIT LIMITED/M INOR PROB EMERGENCY 77408 [facility] CALDERON 6 6 [facility]IAN [facility] T VISIT MODERATE SEVERITY EMERGENCY 10366 [facility] 6 6 JEFFY CARTAGENA DEPARTMEN EMERGENCY T VISIT PHYS MODERATE SEVERITY HOSPITAL [facility] - 6 6 [facility] OUTPATIEN INC T EMERGENCY 04390 [facility] 6 6 [facility] DEPARTMEN INC T VISIT LIMITED/M INOR PROB EMERGENCY 10819 [facility] HOLLIDAY 6 6 PHYSICIAN Priya [facility] T VISIT MODERATE SEVERITY EMERGENCY 81624 [facility] 6 6 JEFFY GASCA DEPARTMEN EMERGENCY T VISIT PHYS HIGH/URGE NT SEVERITY EMERGENCY 70679 [facility] VALENTINE 6 6 PHYSICIAN [facility] SE[facility]ITY [facility] - 6 6 [facility] OUTPATIEN INC T EMERGENCY 98257 [facility] 6 6 [facility] DEPARTMEN INC T VISIT LIMITED/M INOR PROB EMERGENCY 78059 [facility] GRE[facility] 6 6 JEFFY IVANNA DEPARTMEN EMERGENCY T VISIT PHYS MODERATE SEVERITY HOSPITAL RAM[facility]N - 6 6 [facility] INC T OFFICE 94996 [facility] 6 6 [place] T VISIT ADULT & 25 PED MINUTES HOSPITAL [facility] - 6 6 [facility] OUTPATIEN INC T HOSPITAL [facility] - 6 6 [facility] OUTPATIEN INC T HOSPITAL [facility] - 6 6 [facility] OUTPATIEN INC T EMERGENCY 79674 RAMÓ[facility] 6 6 [facility] DEPARTMEN INC T VISIT HIGH/URGE NT SEVERITY OFFICE 47163 [facility] 6 6 [place] KI[place] T VISIT ADULT & 25 PED MINUTES OFFICE 73239 [facility] 6 6 [facility] ADULT & NEW/ESTAB PED PATIENT 60 MIN EMERGENCY 22031 [facility] SWINEY 6 6 JEFFY PAT DEPARTMEN EMERGENCY T VISIT PHYS MODERATE SEVERITY EMERGENCY 14171 [facility] ARNOLD 6 6 JEFFY OSIEL DEPARTMEN EMERGENCY T VISIT PHYS MODERATE SEVERITY EMERGENCY 87702 [facility] SON BAB 6 6 JEFFY DEPARTMEN EMERGENCY T VISIT PHYS MODERATE SEVERITY EMERGENCY 58926 [facility] VALENTINE 6 6 PHYSICIAN KENYATTA [facility] T VISIT MODERATE SEVERITY HOSPITAL [facility] - 6 6 [facility] OUTPATIEN INC T EMERGENCY 18551 [facility] 6 6 [facility] DEPARTMEN INC T VISIT LOW/MODER SEVERITY EMERGENCY 42480 [facility] 6 6 [facility] DEPARTMEN INC T VISIT LOW/MODER SEVERITY HOSPITAL RAM[facility] - 6 6 [facility] OUTPATIEN INC T EMERGENCY 98459 [facility] MAJOR 6 6 PHYSICIAN DEPARTMEN S, PLLC T VISIT MODERATE SEVERITY OFFICE 66405 EULA MILLER [facility] OUTPATIEN 6 6 MD LUCI, T NEW 45 PSC MINUTES HOSPITAL [facility] - 6 6 [facility] OUTPATIEN INC T OFFICE 34831 RAM[facility] OUTPATIEN 6 6 [facility] T VISIT INC 10 MINUTES EMERGENCY 03644 [facility] 6 6 [facility] DEPARTMEN INC T VISIT LOW/MODER SEVERITY HOSPITAL RAM[facility] - 6 6 [facility] OUTPATIEN INC T EMERGENCY 89531 [facility] MATTHEW 6 6 PHYSICIAN [place] DEPARTMEN S, PLLC T VISIT MODERATE SEVERITY HOSPITAL RAM[facility]N - 5 5 [facility] OUTPATIEN INC T EMERGENCY 91297 [facility] 5 5 [facility] DEPARTMEN INC T VISIT LOW/MODER SEVERITY EMERGENCY 92735 [facility] MATTHEW 5 5 PHYSICIAN DEPARTMEN S, [facility] MODERATE SEVERITY EMERGENCY 03655 [facility] RANK[facility] 5 5 JEFFY LIZA [facility] VISIT PHYS HIGH/URGE NT SEVERITY HOSPITAL [facility] - 5 5 [facility] EM[facility]GENC[facility] 72069 GRACIE ISAAC 5 5 MEDICAL ALEX DEPARTMEN SERV T VISIT FOUNDATIO MODERATE N SEVERITY HOSPITAL RAMÓN - 5 5 [facility] OUTPATIEN INC T EMERGENCY 17063 CUAUHTEMOC MATTHEW DEPT 5 5 PHYSICIAN VISIT S, PLLC HIGH SEVERITY& THREAT FUNCJ EMERGENCY 11027 [facility] NORIS 5 5 JEFFY ELO DEPARTMEN EMERGENCY T VISIT PHYS MODERATE SEVERITY [facility] - 5 5 N OUTPATIEN COMMUNTIY T HOSPITA EMERGENCY 15181 [facility] CELLAROSI 5 5 JEFFY - [facility] T VISIT PHYS MODERATE SEVERITY HOSPITAL RAMÓN - 5 5 [facility] INC T HOSPITAL RAMÓN - 5 5 [facility] OUTPATI[facility] INC T EMERGENCY 92720 [facility] 5 5 JEFFY ELO DEPARTMEN EMERGENCY T VISIT PHYS MODERATE SEVERITY EMERGENCY 60654 RAMÓN MATTHEW 5 5 [facility] T VISIT P LOW/MODER SEVERITY EMERGENCY 62001 JOESPH CHAU [facility] 4 4 JEFFY DEPARTMEN EMERGENCY T VISIT PHYS MODERATE SEVERITY OFFICE 93934 [facility] OUTPATIEN 4 4 KENYATTA KENYATTA T VISIT 25 MINUTES EMERGENCY 74143 [facility] 4 4 JEFFY PAT DEPARTMEN EMERGENCY T VISIT PHYS MODERATE SEVERITY EMERGENCY 49478 RAMÓN 4 4 [facility] DEPARTMEN INC T VISIT LOW/MODER SEVERITY HOSPITAL RAMÓN - 4 4 [facility] OUT[facility]IEN INC T EMERGENCY 04318 DON MATTHEW 4 4 [facility] DEPARTMEN T VISIT MODERATE SEVERITY EMERGENCY 32151 KANDI MILES 4 4 DEPARTMEN T VISIT MODERATE SEVERITY EMERGENCY 92209 KANDI MILES 4 4 DEPARTMEN T VISIT MODERATE SEVERITY EMERGENCY 13542 CELLAROSI CELLAROSI 4 4 - YORBA - YORBA DEPARTMEN PAT PAT T VISIT HIGH/URGE NT SEVERITY EMERGENCY 65247 ALFARIS ALFARIS 4 4 [facility] DEPARTMEN T VISIT HIGH/URGE NT SEVERITY Emergency CORINNA Matthew MD (ER) 4 20:03 4 20:30 [facility] EMERGENCY 54754 DON MATTHEW 4 4 [facility] DEPARTMEN T VISIT MODERATE SEVERITY HOSPITAL RAMÓN - 3 3 [facility] OUTPATIEN INC T EMERGENCY 01181 CHUY II CHUY II 3 O O DEPARTMEN T VISIT MODERATE SEVERITY Emergency CORINNA Gupta MD (ER) 3 16:00 3 16:10 [facility] EMERGENCY 81756 SOKAN BAB SOKAN BAB 3 3 DEPARTMEN T VISIT MODERATE SEVERITY Emergency CORINNA DENISE (ER) 3 02:20 3 02:[address] [facility] EMERGENCY 41900 ALFARIS ALFARIS 3 3 [facility] DEPARTMEN T VISIT MODERATE SEVERITY EMERGENCY 70276 RECHTIN RECHTIN 3 3 [facility] DEPARTMEN T VISIT MODERATE SEVERITY Emergency CORINNA Chau MD (ER) 3 17:05 3 17:10 [facility] EMERGENCY 48280 KANDI MILES 3 3 DEPARTMEN T VISIT MODERATE SEVERITY Emergency CORINNA Gupta MD (ER) 3 15:40 3 16:15 [facility] EMERGENCY 69186 SONANCYN BAB SOKAN BAB 3 3 DEPARTMEN T VISIT MODERATE SEVERITY Emergency CORINNA Chau MD (ER) 3 01:00 3 01:38 [facility] EMERGENCY 54077 YARIEL MILES 3 3 EMERGENCY DEPARTMEN SERVICES T VISIT HIGH/URGE NT SEVERITY EMERGENCY 56169 STACK HEIDI STACK HEIDI 3 3 DEPARTMEN T VISIT HIGH/URGE NT SEVERITY EMERGENCY 26148 YARIEL WHITAKER 3 3 EMERGENCY DEPARTMEN SERVICES T VISIT MODERATE SEVERITY EMERGENCY 72086 YARIEL BARROSO DEPT 3 3 EMERGENCY JAM VISIT SERVICES HIGH SEVERITY& THREAT FUNCJ EMERGENCY 29315 CAREY PATINO 3 3 SET SET DEPARTMEN T VISIT HIGH/URGE NT SEVERITY EMERGENCY 52696 CHUY II CHUY II 3 3 THO THO DEPARTMEN T VISIT MODERATE SEVERITY EMERGENCY 40947 RAMÓN 3 3 [facility] DEPARTMEN INC T VISIT LIMITED/M INOR PROB HOSPITAL RAMÓN - 3 3 [facility] OUTPATIEN INC T EMERGENCY 73332 DON MATTHEW 3 3 [facility] DEPARTMEN T VISIT HIGH/URGE NT SEVERITY EMERGENCY 60785 YARIEL COTE DEPT 3 3 EMERGENCY III [place] VISIT SERVICES HIGH SEVERITY& THREAT FUNCJ EMERGENCY 97352 ABNER MAT ABNER MAT 2 2 DEPARTMEN T VISIT MODERATE SEVERITY EMERGENCY 38869 YARIEL GUSTAFSON 2 2 EMERGENCY ADT JONATHAN DEPARTMEN SERVICES T VISIT MODERATE SEVERITY OFFICE 05747 KATT YOU CONSULTAT 2 2 ION NEW/ESTAB PATIENT 60 MIN EMERGENCY 78330 FOX LISA FOX LISA 2 2 DEPARTMEN T VISIT MODERATE SEVERITY OFFICE 30508 MIGDALIA ADRIANAMOHSEN OUTPATIEN 2 2 CLEMENTINE CLEMENTINE T VISIT 15 MINUTES EMERGENCY 13148 PUND CHR PUND CHR 2 2 DEPARTMEN T VISIT MODERATE SEVERITY EMERGENCY 25908 CHUY II CHUY II 2 2 THO THO DEPARTMEN T VISIT MODERATE SEVERITY EMERGENCY 20559 OSWALDO CHACON 2 2 JULIO JULIO DEPARTMEN T VISIT MODERATE SEVERITY HOSPITAL RAMÓN - 2 2 [facility] OUTPATIEN INC T EMERGENCY 30771 RAMÓN 2 2 [facility] DEPARTMEN INC T VISIT LOW/MODER SEVERITY EMERGENCY 07223 DON MATTHEW 2 2 CONCHIS CONCHIS DEPARTMEN T VISIT MODERATE SEVERITY EMERGENCY 73035 CHUY II CHUY II 2 2 THO THO DEPARTMEN T VISIT HIGH/URGE NT SEVERITY OFFICE 34564 OZ JR OZ JR OUTPATIEN 2 2 KENYON KENYON T NEW 30 MINUTES OFFICE 64882 MIGDALIA NEGRON OUTPATIEN 2 2 CLEMENTINE CLEMENTINE T VISIT 15 MINUTES EMERGENCY 47199 ROCAEL COTE DEPT 2 2 III KENYON III KENYON VISIT HIGH SEVERITY& THREAT [facility] RAMÓN - 2 2 [facility] OUTPATIEN INC T EMERGENCY 96161 RAMÓN 2 2 [facility] DEPARTMEN INC T VISIT MODERATE SEVERITY EMERGENCY 32745 DEJUAN ZAIDI 2 2 [facility] DEPARTMEN T VISIT MODERATE SEVERITY OFFICE 09748 NAVARRO PAD NAVARRO PAD OUTPATIEN 2 2 T VISIT 15 MINUTES EMERGENCY 96550 CHUY T CHUY T 2 2 DEPARTMEN T VISIT MODERATE SEVERITY EMERGENCY 91796 RECHTIN RECHTIN 2 2 DRAWING KILN SUPERVISOR DRAWING KILN SUPERVISOR DEPARTMEN T VISIT HIGH/URGE NT SEVERITY OFFICE 26807 LI LI OUTPATIEN 2 2 KIEL KIEL T VISIT 15 MINUTES EMERGENCY 18725 CELLAROSI CELLAROSI 2 2 - YORBA - YORBA DEPARTMEN PAT PAT T VISIT HIGH/URGE NT SEVERITY OFFICE 12747 NAVARRO PAD NAVARRO PAD OUTPATIEN 2 2 T VISIT 15 MINUTES EMERGENCY 16617 YARIEL STEPHENSON DOU 2 2 EMERGENCY DEPARTMEN SERVICES T VISIT HIGH/URGE NT SEVERITY OFFICE 46675 MARY DOESSA MARY ODSESA OUTPATIEN 2 2 T VISIT 15 MINUTES EMERGENCY 51623 CHUY T CHUY T 2 2 DEPARTMEN T VISIT MODERATE SEVERITY OFFICE 07802 LI LI OUTPATIEN 2 2 KIEL KIEL T VISIT 15 MINUTES EMERGENCY 10577 [place] 2 2 [facility] T VISIT MODERATE SEVERITY EMERGENCY 72467 DOWNS PAT DOWNS PAT 2 2 DEPARTMEN T VISIT HIGH/URGE NT SEVERITY HOSPITAL [place] - 2 2 [facility] T EMERGENCY 43785 GRACIE KIRKLAND 2 2 MEDICAL TEREZA DEPARTMEN SERV T VISIT FOUNDATIO MODERATE SEVERITY EMERGENCY 12102 YARIEL ROSI 2 2 EMERGENCY PAT DEPARTMEN SERVICES T VISIT MODERATE SEVERITY OFFICE 41503 GUILLERMO LI CONSULTAT 2 2 KIEL KIEL ION NEW/ESTAB PATIENT 40 MIN OFFICE 28683 MOIRA MOIRA OUTPATIEN 2 2 MITZI MITZI T NEW 20 MINUTES OFFICE 35931 POWELL POWELL OUTPATIEN 2 2 OSBALDO OSBALDO T VISIT 15 MINUTES EMERGENCY 23528 YARIEL MERINOEY 2 2 EMERGENCY CONCHIS DEPARTMEN SERVICES T VISIT HIGH/URGE NT SEVERITY EMERGENCY 24338 RAMÓN 2 2 [facility] DEPARTMEN INC T VISIT LOW/MODER SEVERITY HOSPITAL RAMÓN - 2 2 [facility] OUTPATIEN INC T EMERGENCY 48790 CHUY T CHUY T 2 2 DEPARTMEN T VISIT MODERATE SEVERITY HOSPITAL [place] - 2 2 [facility] T OFFICE 73334 POWELL POWELL OUTPATIEN 2 2 OSBALDO OSBALDO T VISIT 15 MINUTES EMERGENCY 21143 GRACIE ROMAN 2 2 MEDICAL APPLICATION PERFORMANCE ENGINEER DEPARTMEN SERV T VISIT FOUNDATIO HIGH/URGE NT SEVERITY OFFICE 45279 AICHA HOLCOMB MITZI OUTPATIEN 2 2 T VISIT 15 MINUTES OFFICE 81195 MARY ODESSA MARY ODESSA OUTPATIEN 2 2 T NEW 20 MINUTES OFFICE 59552 MIGDALIA NEGRON OUTPATIEN 2 2 CLEMENTINE CLEMENTINE T VISIT 15 MINUTES EMERGENCY 33924 OSWALDO CHACON 2 2 JULIO JULIO DEPARTMEN T VISIT MODERATE SEVERITY EMERGENCY 08146 YARIEL MATTHEW 2 2 EMERGENCY CONCHIS DEPARTMEN SERVICES T VISIT HIGH/URGE NT SEVERITY EMERGENCY 18952 RAMÓN 2 2 [facility] DEPARTMEN INC T VISIT LOW/MODER SEVERITY HOSPITAL RAMÓN - 2 2 [facility] OUTPATIEN INC T EMERGENCY 08950 YARIEL TIDWELL 2 2 EMERGENCY CAR DEPARTMEN SERVICES T VISIT LIMITED/M INOR PROB EMERGENCY 61354 VERONICA MARTIN 2 2 [facility] DEPARTMEN T VISIT HIGH/URGE NT SEVERITY [facility] HOSPITA OFFICE 07848 [facility] PAD [facility] T VISIT 15 MINUTES HOSPITAL RAMÓN - 2 2 [facility] OUTPATIEN INC T EMERGENCY 41554 YARIEL MATTHEW 2 2 EMERGENCY CONCHIS DEPARTMEN SERVICES T VISIT HIGH/URGE NT SEVERITY EMERGENCY 63148 RAMÓN 2 2 [facility] DEPARTMEN INC T VISIT LOW/MODER SEVERITY EMERGENCY 17709 DEJUAN ZAIDI 2 2 GAR GAR DEPARTMEN T VISIT MODERATE SEVERITY EMERGENCY 73807 AYRIEL TIDWELL 2 2 EMERGENCY CAR DEPARTMEN SERVICES T VISIT MODERATE SEVERITY OFFICE 37001 KENRICKE KENRICKE OUTPATIEN 1 1 ABD ABD T VISIT 15 MINUTES EMERGENCY 52217 OSWALDO CHACON 1 1 JULIO JULIO DEPARTMEN T VISIT MODERATE SEVERITY EMERGENCY 42904 YARIEL JOEL 1 1 EMERGENCY CONCHIS DEPARTMEN SERVICES T VISIT MODERATE SEVERITY HOSPITAL UNIVERSIT - 1 1 [facility] HOSPITAL [place] - 1 1 [facility] T EMERGENCY 63434 MOLINA MITZI MOLINA MITZI 1 1 DEPARTMEN T VISIT MODERATE SEVERITY OFFICE 22757 NAVARRO PAD NAVARRO PAD OUTPATIEN 1 1 T NEW 20 MINUTES EMERGENCY 95609 OSWALDO CHACON 1 1 JULIO JULIO DEPARTMEN T VISIT HIGH/URGE NT SEVERITY HOSPITAL RAMÓN - 1 1 [facility] OUTPATIEN INC T EMERGENCY 70742 RAMÓN 1 1 [facility] DEPARTMEN INC T VISIT LOW/MODER SEVERITY EMERGENCY 69294 DON DON 1 1 CONCHIS CONCHIS DEPARTMEN T VISIT HIGH/URGE NT SEVERITY OFFICE 07298 ESCALANTE JULIO ESCALANTE JULIO OUTPATIEN 1 1 T VISIT 15 MINUTES EMERGENCY 78783 ACS TEODORO 1 1 PRIMARY FRITZ DEPARTMEN CARE T VISIT PHYSICANS MODERATE M SEVERITY EMERGENCY 32717 YARIEL DOWNING 1 1 EMERGENCY - YORBA DEPARTMEN SERVICES PAT T VISIT MODERATE SEVERITY EMERGENCY 16592 GRACIE PATINO 1 1 MEDICAL SET DEPARTMEN SERV T VISIT FOUNDATIO MODERATE SEVERITY HOSPITAL [facility] - [facility] 19414 ESCALANTE JULIO ESCALANTE JULIO OUTPATIEN 1 1 T VISIT 15 MINUTES EMERGENCY 78486 YARIEL PACE 1 1 EMERGENCY RYA DEPARTMEN SERVICES T VISIT MODERATE SEVERITY HOSPITAL UNIVERSIT - 1 1 Y [facility] T EMERGENCY 22766 ACS 1 1 PRIMARY KET DEPARTMEN CARE T VISIT PHYSICANS HIGH/URGE M NT SEVERITY OFFICE 87511 VENGUSWAM VENGUSWAM OUTPATIEN 1 1 Y CATARINA Y CATARINA T VISIT 15 MINUTES OFFICE 04345 ESCALANTE JULIO ESCALANTE JULIO OUTPATIEN 1 1 T NEW 30 MINUTES EMERGENCY 15464 GRACIE GOINS JESSICA 1 1 MEDICAL DEPARTMEN SERV T VISIT FOUNDATIO MODERATE SEVERITY EMERGENCY 63807 [facility] LOW/MODER SEVERITY [facility] UN[facility] - 1 1 [facility] T EMERGENCY 04524 GRACIE MONIQUE 1 1 MEDICAL SON DEPARTMEN SERV T VISIT FOUNDATIO MODERATE SEVERITY EMERGENCY 33681 YARIEL FERNANDEZ 1 1 EMERGENCY THERESA DEPARTMEN SERVICES T VISIT HIGH/URGE NT SEVERITY HOSPITAL [facility] - 1 1 [facility] T EMERGENCY 62396 GRACIE DIO JR 1 1 MEDICAL [place] DEPARTMEN SERV T VISIT FOUNDATIO MODERATE SEVERITY EMERGENCY 94445 UNIVERSIT 1 1 Y [facility] HOSPITAL T VISIT LOW/MODER SEVERITY HOSPITAL RAMÓN - 1 1 [facility] OUTPATIEN INC T EMERGENCY 12882 YARIEL GONZALEZ 1 1 EMERGENCY DEPARTMEN SERVICES T VISIT HIGH/URGE NT SEVERITY EMERGENCY 28277 RAMÓN 1 1 MEM [facility] DEPARTMEN INC T VISIT LOW/MODER SEVERITY EMERGENCY 57517 JOESPH VELOZ GAYLE 1 1 JEFFY [facility] T VISIT PHYS MODERATE SEVERITY EMERGENCY 75257 YARIEL SHEETS 1 1 EMERGENCY [facility] DEPARTMEN SERVICES T VISIT MODERATE SEVERITY HOSPITAL RAMÓN - 1 1 [facility] OUTPATIEN INC T EMERGENCY 64194 RAMÓN 1 1 [facility] DEPARTMEN INC T VISIT LIMITED/M INOR PROB EMERGENCY 83638 YARIEL MATTHEW 1 1 EMERGENCY CONCHIS DEPARTMEN SERVICES T VISIT HIGH/URGE NT SEVERITY EMERGENCY 10689 YARIEL DOWNING 1 1 EMERGENCY - YORBA DEPARTMEN SERVICES PAT T VISIT HIGH/URGE NT SEVERITY EMERGENCY 87058 [facility] 1 1 N [facility] LOW/MODER SEVERITY HOSPITAL [facility] - 1 1 N OUTPATIEN COMMUNITY T [facility] - 1 1 Y OUTPATI HOSPITAL T EMERGENCY 50445 GRACIE MARC 1 1 [facility] VISIT FOUNDATIO MODERATE SEVERITY EMERGENCY 07959 [facility] 1 1 JEFFY DEPARTMEN EMERGENCY T VISIT PHYS MODERATE SEVERITY HOSPITAL [facility] - 1 HOSPITAL OUTPATIEN T EMERGENCY 18667 [facility] 1 1 [facility] VIS[facility] LOW/MODER SEVERITY EMERGENCY 60039 YARIEL GALO [address] [facility] SERVICES T VISIT MODERATE SEVERITY EMERGENCY 59118 [facility] 1 1 N [facility] COMMUNITY T VISIT [facility] MODERATE SEVERITY HOSPITAL [facility] - 1 1 N OUTPATIEN COMMUNITY T [facility] EMERGENCY 67323 YARIEL ZAIDI DEPT 1 1 EMERGENCY GAR VISIT SERVICES HIGH SEVERITY& THREAT [facility] - 1 N OUTPATIEN COMMUNITY T HOSPITA OFFICE 46039 VENGUSWAM VENGUSWAM OUTPATIEN 1 1 Y CATARINA Y CATARINA T VISIT 25 MINUTES OFFICE 51199 [facility] DANNIELLE [facility] 1 1 N URGENT ABD T VISIT CARE 15 MINUTES OFFICE 86564 VENGUSWAM VENGUSWAM OUTPATIEN 1 1 Y CATARINA Y CATARINA T NEW 30 MINUTES EMERGENCY 23299 YARIEL GALO [address] [facility] SERVICES T VISIT HIGH/URGE NT SEVERITY OFFICE 31809 [facility] KENRICKE [facility] N URGENT ABD T VISIT CARE 15 MINUTES HOSP[facility] [place] - 1 1 N [facility] 14202 [facility] DANNIELLE OUTPATIEN 1 1 N URGENT ABD T VISIT CARE 15 MINUTES OFFICE 33687 [facility] DANNIELLE OUTPATIEN 1 1 N URGENT ABD T VISIT CARE 15 MINUTES HOSPITAL RAMÓN - 1 1 [facility] OUTPATIEN INC T EMERGENCY 42200 RAMÓN 1 1 [facility] DEPARTMEN INC T VISIT LOW/MODER SEVERITY EMERGENCY 41346 YARIEL GONZALEZ 1 1 EMERGENCY DEPARTMEN SERVICES T VISIT HIGH/URGE NT SEVERITY EMERGENCY 33345 YARIEL GALO 1 1 EMERGENCY CHAU DEPARTMEN SERVICES T VISIT MODERATE SEVERITY OFFICE 35732 GRACIE GARRETT Timur [facility] MEDICAL T VISIT SERV 10 FOUNDATIO MINUTES OFFICE 93973 [facility]ELLE [facility] 1 N URGENT ABD T VISIT CARE 15 MINUTES OFFICE 33605 [facility]ELLE [facility] 1 N URGENT ABD T VISIT CARE 15 MINUTES OFFICE 92115 [facility] DANNIELLE OUTPATIEN 0 0 N URGENT ABD T VISIT CARE 15 MINUTES OFFICE 47543 [facility] DANNIELLE OUTPATIEN 0 0 N URGENT ABD T VISIT CARE [address]ES [address] [facility] CONSULTAT 0 0 ANNITA GALINDO CARDIOLOG NEW/ESTAB Y CLINIC PATIENT 30 MIN EMERGENCY 90902 YARIEL GALO 0 0 EMERGENCY CHAU DEPARTMEN SERVICES T VISIT MODERATE SEVERITY HOSPITAL [facility] 32512 [facility] DANNIELLE OUTPATIEN 0 0 N URGENT ABD T VISIT CARE 15 MINUTES HOSPITAL [facility] - 0 0 N [facility]PATIEN COMM[facility]ITY [facility] - 0 0 N OUTPATIEN COMMUNITY T HOSPITA OFFICE 53054 [facility] DANNIELLE OUTPATIEN 0 0 N URGENT ABD T VISIT CARE 15 MINUTES EMERGENCY 70858 YARIEL COTE 0 0 EMERGENCY III [place] DEPARTMEN SERVICES T VISIT HIGH/URGE NT SEVERITY HOSPITAL RAMÓN - 0 0 [facility] OUTPATIEN INC T EMERGENCY 24715 RAMÓN 0 0 [facility]OS[facility] DEPARTMEN INC T VISIT LOW/MODER SEVERITY OFFICE 86450 [facility] OUTPATIEN 0 0 [place] T VISIT ORTHOPAED 15 [facility] MINUTES OFFICE 48396 [facility] DANNIELLE OUTPATIEN 0 0 N URGENT ABD T NEW 30 CARE MINUTES OFFICE 87314 GARCÍA TRA GARCÍA TRA OUTPATIEN 0 0 T VISIT 10 MINUTES OFFICE 78547 [facility] GARC[facility] TRA OUTPATIEN 0 0 [place] T VISIT ORTHOPAED 15 [facility] MINUTES EMERGENCY 42257 [facility] 0 0 [facility] MODERATE SEVERITY HOSPITAL [facility] - 0 0 N OUTPATIEN COMMUNITY T HOSPITA EMERGENCY 49519 YARIEL VERA T 0 0 EMERGENCY DEPARTMEN SERVICES T VISIT MODERATE SEVERITY EMERGENCY 95343 YARIEL ROBERTO DEPT 0 0 EMERGENCY DON VISIT SERVICES HIGH SEVERITY& THREAT FUNCJ EMERGENCY 63627 RAMÓN 0 0 MEM HOS[facility] DEPARTMEN INC T VISIT LOW/MODER SEVERITY HOSPITAL RAMÓN - 0 0 [facility] OUTPATIEN INC T EMERGENCY 36463 YARIEL MATTHEW, 0 0 EMERGENCY DANIELA S DEPARTMEN SERVICES T VISIT HIGH/URGE ASSOCIATE NT S SEVERITY EMERGENCY 88596 GRACIE MOHAN 0 0 MEDICAL GAIL DEPARTMEN SERV T VISIT FOUNDATIO MODERATE SEVERITY EMERGENCY 30111 UNIVERSIT 0 0 Y [facility] HOSPITAL T VISIT LOW/MODER SEVERITY HOSPITAL UNIVERSIT - 0 0 [facility] RAMÓN - 0 0 MEM HOSP OUTPATIEN INC T EMERGENCY 62771 RAMÓN 0 0 MEM HOS[facility] DEPARTMEN INC T VISIT LOW/MODER SEVERITY EMERGENCY 13398 YARIEL MATTHEW, DEPT 0 0 EMERGENCY DANIELA S VISIT SERVICES HIGH SEVERITY& ASSOCIATE THREAT S FUNCJ EMERGENCY 57933 RAMÓN 0 0 MEM HOS[facility] DEPARTMEN INC T VISIT LOW/MODER SEVERITY HOSPITAL RAMÓN - 0 0 [facility] OUTPATIEN INC T EMERGENCY 63274 YARIEL GIL 0 0 EMERGENCY [facility] DEPARTMEN SERVICES T VISIT MODERATE SEVERITY EMERGENCY 59083 RAMÓN 0 0 MEM HOS[facility] DEPARTMEN INC T VISIT LIMITED/M INOR PROB HOSPITAL RAMÓN - 0 0 [facility] OUTPATIEN INC T EMERGENCY 48167 YARIEL MATTHEW, 0 0 EMERGENCY DANIELA S DEPARTMEN SERVICES T VISIT HIGH/URGE ASSOCIATE NT S SEVERITY EMERGENCY 66656 YARIEL WATT 0 0 EMERGENCY DEPARTMEN SERVICES T VISIT HIGH/URGE NT SEVERITY EMERGENCY 18494 [place] 0 0 [facility] HOSP[facility] T VISIT MODERATE SEVERITY [facility]OSPITAL [place] - 0 0 [facility] T EMERGENCY 49619 YARIEL CHARLES, 0 0 EMERGENCY ANGELY J DEPARTMEN SERVICES T VISIT MODERATE ASSOCIATE SEVERITY S EMERGENCY 41353 YARIEL BARROSO, 0 0 EMERGENCY VALERIE M DEPARTMEN SERVICES T VISIT HIGH/URGE ASSOCIATE NT S SEVERITY EMERGENCY 32056 [place] 0 0 [facility]OSPITAL T VISIT MODERATE SEVERITY [facility]OSP[facility] [place] - 0 0 [facility] T OFFICE 74575 MIGDALIA, MIGDALIA, [facility] 0 0 BOY W BOY W T NEW 30 MINUTES EMERGENCY 71604 [facility], 0 0 JEFFY Mills DEPARTMEN EMERGENCY T VISIT PHYS INC MODERATE SEVERITY EMERGENCY 09005 [facility], 0 0 JEFFY iMlls DEPARTMEN EMERGENCY T VISIT PHYS INC MODERATE SEVERITY [facility] 62993 [facility] JEFFY CARL Quinn DEPARTMEN EMERGENCY T VISIT SERV PC HIGH/URGE NT SEVERITY HOSPITAL [facility] - 0 0 [facility] T EMERGENCY 34160 [facility] 0 0 HOSPITAL DEPARTMEN T VISIT MODERATE SEVERITY [facility] [place] - 0 0 [facility] T EMERGENCY 64050 [place] 0 0 [facility]OSP[facility] T VISIT MODERATE SEVERITY EMERGENCY 14454 [facility], 0 0 JEFFY HUERTA DO DEPARTMEN EMERGENCY NAREN O T VISIT PHYS INC MODERATE SEVERITY EMERGENCY 83210 [facility] 0 0 [place] BARD[facility] DEPARTMEN EMERGENCY M T VISIT PHYS INC MODERATE SEVERITY [facility]OSPITAL [place] - 0 0 [facility] T EMERGENCY 13650 [place] 0 0 [facility] T VISIT MODERATE SEVERITY EMERGENCY 30896 [facility] 0 0 Y [facility] H[facility]PITAL T VISIT LIMITED/M INOR PROB EMERGENCY 24475 [place], 0 0 MEDICAL YOSELIN C DEPARTMEN SERV T VISIT FOUNDATIO LOW/MODER SEVERITY HOSPITAL UN[facility] - 0 0 Y [facility] T EMERGENCY 18163 YARIEL BARROSO, 0 0 EMERGENCY VALERIE M DEPARTMEN SERVICES T VISIT MODERATE ASSOCIATE SEVERITY S EMERGENCY 24325 [facility], T 0 0 JEFFY DEPARTMEN EMERGENCY T VISIT PHYS INC MODERATE SEVERITY EMERGENCY 84906 [facility], T 0 0 JEFFY DEPARTMEN EMERGENCY T VISIT PHYS INC MODERATE SEVERITY EMERGENCY 15986 [facility] CELLAROSI 0 0 JEFFY - YORBA, DEPARTMEN EMERGENCY BLANCO T VISIT PHYS INC M MODERATE SEVERITY HOSPITAL [facility] - 0 0 [facility] T EMERGENCY 68094 GRACIE MOHAN, 0 0 MEDICAL MIKE C DEPARTMEN SERV T VISIT FOUNDATIO MODERATE SEVERITY EMERGENCY 57567 [facility] [place], 0 0 JEFFY MERVIN M DEPARTMEN EMERGENCY T VISIT PHYS INC MODERATE SEVERITY HOSPITAL [place] - 0 0 [facility] T EMERGENCY 56461 [place] 0 0 [facility] T VISIT LOW/MODER SEVERITY EMERGENCY 04559 [place] 0 0 [facility] T VISIT LOW/MODER SEVERITY EMERGENCY 26472 GRACIE ANISA 0 0 MEDICAL I, MORELIA DEPARTMEN SERV A T VISIT FOUNDATIO MODERATE SEVERITY HOSPITAL [place] - 0 0 [facility] T EMERGENCY 23288 [place] 9 9 [facility] T VISIT LOW/MODER SEVERITY EMERGENCY 77481 [facility], T 9 9 JEFFY DEPARTMEN EMERGENCY T VISIT PHYS INC MODERATE SEVERITY [facility]OSPITAL [place] - 9 9 [facility]ERGENC[facility] 37335 [facility] [place], 9 9 JEFFY NAREN Maynard DEPARTMEN EMERGENCY T VISIT PHYS INC MODERATE SEVERITY EMERGENCY 77193 [facility] SUDE[facility], 9 9 JEFFY [place] DEPARTMEN EMERGENCY T VISIT PHYS INC MODERATE SEVERITY EMERGENCY [address] [facility], 9 9 JEFFY HIEU DEPARTMEN EMERGENCY T VISIT PHYS INC HIGH/URGE NT SEVERITY EMERGENCY 38524 [facility] 9 9 [facility]MODER [facility]VERITY [facility]ITAL [facility] - 9 9 [facility] 30198 [facility] T 9 9 JEFFY [facility] EMERGENCY T VISIT PHYS INC MODERATE SEVERITY EMERGENCY 32350 [facility], 9 9 JEFFY [facility] EMERGENCY A T VISIT PHYS INC MODERATE SEVERITY [facility]OSP[facility] [place] - 9 9 [facility] T EMERGENCY 99965 [facility], 9 9 JEFFY SMITH [facility] EMERGENCY A T VISIT PHYS INC MODERATE SEVERITY [facility] [place] - 9 9 [facility] T EMERGENCY 84366 [place] 9 9 [facility] HOSPITAL T VISIT LOW/MODER SEVERITY OFFICE 80349 [facility] 9 9 , QUITA DEVLIN ION NEW/ESTAB PATIENT 40 MIN EMERGENCY 39015 [facility] 9 9 JEFFY , [facility] EMERGENCY SANJOYDEB T VISIT PHYS INC MODERATE SEVERITY EMERGENCY 05148 [facility] 9 [facility]/MODER SEVERITY [facility]OSPITAL [facility] - 9 9 [facility] 05200 [place] 9 9 [facility] DEPARTMEN INC T VISIT LOW/MODER SEVERITY EMERGENCY 93832 YARIEL MATTHEW, 9 9 EMERGENCY [facility] SERVICES T VISIT MODERATE ASSOCIATE SEVERITY [facility] [place] - 9 9 [facility] OUTPATIEN INC T EMERGENCY 93035 [facility], 9 9 JEFFY PRIETO DEPARTMEN EMERGENCY T VISIT PHYS INC MODERATE SEVERITY EMERGENCY 58664 [facility], 9 9 JEFFY [place] DEPARTMEN EMERGENCY T VISIT PHYS INC MODERATE SEVERITY EMERGENCY 23738 [facility] 9 9 [facility] DEPARTMEN INC T VISIT LOW/MODER SEVERITY HOSPITAL [facility] - 9 9 [facility] OUTPATIEN INC T EMERGENCY 69751 YARIEL MATTHEW, 9 9 EMERGENCY DANIELA S DEPARTMEN SERVICES T VISIT MODERATE ASSOCIATE SEVERITY S HOSPITAL [facility] - 9 9 HOSPITAL OUTPATIEN T EMERGENCY 36330 [facility], 9 9 JEFFY Kai Martinez DEPARTMEN EMERGENCY T VISIT PHYS INC MODERATE SEVERITY EMERGENCY 09680 [facility] 9 9 HOSPITAL DEPARTMEN T VISIT LOW/MODER SEVERITY HOSPITAL [facility] - 9 9 HOSPITAL OUTPATIEN T EMERGENCY 74042 [facility] 9 9 HOSPITAL DEPARTMEN T VISIT LOW/MODER SEVERITY EMERGENCY 63203 [facility], 9 9 JEFFY Freeman DEPARTMEN EMERGENCY T VISIT PHYS INC MODERATE SEVERITY EMERGENCY 26618 [facility], 9 9 JEFFY SARAH DEPARTMEN EMERGENCY A T VISIT PHYS INC MODERATE SEVERITY EMERGENCY 24942 YARIEL MATTHEW, 9 9 EMERGENCY DANIELA S DEPARTMEN SERVICES T VISIT MODERATE ASSOCIATE SEVERITY S HOSPITAL [facility] - 9 9 [facility] OUTPATIEN INC T EMERGENCY 89997 [facility] 9 9 [facility] DEPARTMEN INC T VISIT LOW/MODER SEVERITY [facility]OSP[facility] [place] - 9 9 [facility] T EMERGENCY 82303 [facility], 9 9 JEFFY Mills DEPARTMEN EMERGENCY T VISIT PHYS INC MODERATE SEVERITY HOSPITAL RAMÓN - 9 9 [facility] OUTPATIEN INC T EMERGENCY 45627 RAM[facility] 9 9 [facility] DEPARTMEN INC T VISIT LOW/MODER SEVERITY EMERGENCY 63848 YARIEL MATTHEW, 9 9 EMERGENCY [facility] SERVICES T VISIT HIGH/URGE ASSOCIATE NT S SEVERITY EMERGENCY 53608 YARIEL DOWNING 9 9 EMERGENCY - YORBA, [facility] SERVICES BLAN[place] T VISIT M MODERATE ASSOCIATE SEVERITY S OFFICE 13091 RAMON NAVARRO OUTPATIEN 9 9 LYNDSAY G LYNDSAY G T VISIT 15 MINUTES EMERGENCY 98031 JOESPH VERA, T 9 9 JEFFY [facility] EMERGENCY T VISIT PHYS INC MODERATE SEVERITY HOSPITAL [facility] - 9 9 [facility] T EMERGENCY 14028 [facility] 9 9 [facility] H[facility]PITAL T VISIT LOW/MODER SEVERITY EMERGENCY 50753 [facility] 9 JEFFY [facility] EMERGENCY T VISIT PHYS INC MODERATE SEVERITY EMERGENCY 95360 RAMÓN 9 9 [facility] DEPARTMEN INC T VISIT LOW/MODER SEVERITY HOSPITAL RAMÓN - 9 9 [facility] OUTPATIEN INC T EMERGENCY 19381 YARIEL MATTHEW, 9 9 EMERGENCY [facility] SERVICES T VISIT MODERATE ASSOCIATE SEVERITY S EMERGENCY 28750 JOESPH VERA T 9 9 JEFFY [facility] EMERGENCY T VISIT PHYS INC MODERATE SEVERITY HOSPITAL RAMÓN - 9 9 [facility] OUTPATIEN [facility] T EMERGENCY 10642 RAMÓN 9 9 [facility] DEPARTMEN INC T VISIT LOW/MODER SEVERITY EMERGENCY 41432 [facility], T 9 9 [facility] DEPART[facility] EMERGENCY T VISIT PHYS INC MODERATE SEVERITY EMERGENCY 36962 YARIEL MUÑOZ, DEPT 9 9 EMERGENCY [place] VISIT SERVICES HIGH SEVERITY& ASSOCIATE THREAT S [facility] RAMÓN - 9 9 [facility] OUTPATIEN INC T EMERGENCY 82282 RAMÓN 9 9 [facility] DEPARTMEN INC T VISIT MODERATE SEVERITY EMERGENCY 23887 [facility] 9 9 [facility] T VISIT LIMITED/M INOR PROB EMERGENCY 86947 [facility], 9 9 JEFFY VALERIE [facility] VISIT PHYS INC MODERATE SEVERITY HOSPITAL [facility] - 9 9 [facility] T EMERGENCY 58637 [facility] 9 9 [facility] T VISIT LOW/MODER SEVERITY OFFICE 77032 [facility] 9 9 , QUITA DEVLIN ION NEW/ESTAB PATIENT 60 MIN EMERGENCY 68738 [facility], 9 9 JEFFY MERVIN [facility] EMERGENCY T VISIT PHYS INC MODERATE SEVERITY [facility] 9 9 [facility] T EMERGENCY 16661 [facility] 9 [facility] T V[facility]IT LIMITED/M INOR PROB [facility] 9 9 [facility] T EMERGENCY [address] [place] 9 9 [facility]PITAL T VISIT MODERATE SEVERITY EMERGENCY 60410 [facility], 9 9 JEFFY Mckeon [facility] EMERGENCY T VISIT PHYS [facility] LOW/MODER SEVERITY HOSPITAL RAMÓN - 9 9 [facility] T EMERGENC[facility] 67334 YARIEL RICHARDSON, 9 9 EMERGENCY VALERIE P DEPARTMEN SERVICES T VISIT MODERATE ASSOCIATE SEVERITY S EMERGENCY 16863 YARIEL RICHARDSON, 9 9 EMERGENCY VALERIE P DEPARTMEN SERVICES T VISIT MODERATE ASSOCIATE SEVERITY S EMERGENCY 79893 RAMÓN 9 9 [facility] DEPARTMEN INC T VISIT LIMITED/M INOR PROB HOSPITAL RAMÓN - 9 9 [facility] OUTPATIEN INC T EMERGENCY 88835 [facility] 9 9 [facility] VISIT LIMITED/M INOR PROB EMERGENCY 44965 [facility] 9 9 JEFFY Peterson ANNITA DEPARTMEN EMERGENCY T VISIT PHYS INC MODERATE SEVERITY HOSPITAL [facility] - 9 9 [facility]ERGENC[facility] 26359 [facility], 9 9 JEFFY Mills DEPARTMEN EMERGENCY T VISIT PHYS INC MODERATE SEVERITY EMERGENCY 06271 GRACIE SOLORIO, 9 9 MEDICAL MERVIN Martinez [facility] T VISIT FOUNDATIO MODERATE SEVERITY HOSPITAL [facility] - 9 9 [facility] T EMERGENCY 59901 UN[facility] 9 9 [facility] T VISIT LIMITED/M INOR PROB [facility] 9 9 [facility] T EMERGENCY [address] [place] 9 9 [facility] T VISIT LOW/MODER SEVERITY EMERGENCY 13474 [facility], 9 9 JEFF[facility] T VISIT PHYS INC MODERATE SEVERITY EMERGENCY 35945 [facility], 9 9 JEFF[facility] Hdz [facility] T VISIT PHYS INC MODERATE SEVERITY EMERGENCY 61560 [facility] T VISIT MODERATE SEVERITY [facility] [place] - 9 9 [facility] - 9 9 [facility] T OFFICE 68660 RAMON NAVARRO, [facility] 9 9 LYNDSAY G LYNDSAY G T VISIT 15 MINUTES HOSPITAL UNIVERSIT - 9 9 [facility] T EMERGENCY 49607 GRACIE SOLORIO, 9 9 MEDICAL MERVIN Martinez [facility] T VISIT FOUNDATIO HIGH/URGE NT SEVERITY EMERGENCY 53138 [facility] 8 8 JE[facility] T VISIT PHYS INC MODERATE SEVERITY HOSPITAL [facility] - 8 8 N [facility] HOSPITAL OFFICE 25219 NAVARRO, NAVARRO, CONSULTAT 8 8 LYNDSAY G LYNDSAY G ION NEW/ESTAB PATIENT 60 MIN OFFICE 54960 CARDIOLOG DINO, CONSULTAT 8 8 Y EMILIE S ION ASSOCIATE NEW/ESTAB S OF PATIENT [place] 60 MIN [facility]OSP[facility] [place] - 8 8 [facility] T EMERGENCY 70118 [place] 8 8 MEM [facility] T VISIT LOW/MODER SEVERITY EMERGENCY 40118 [facility] 8 8 N [facility] VISIT HOSPITAL HIGH/URGE NT [facility]VERITY [facility] - 8 N [facility] HOSPITAL EMERGENCY 99709 [facility] DEPT 8 8 JEFFY Trung CALERO, VISIT EMERGENCY [place]AN[place] HIGH PHYS INC M SEVERITY& THREAT FUNCJ EMERGENCY 11870 [facility] 8 8 N [facility] VISIT HOSPITAL LOW/MODER SEVERITY EMERGENCY 13635 [facility], 8 8 JEFFY SARAH [facility] EMERGENCY A T VISIT PHYS INC MODERATE SEVERITY HOSPITAL [facility] - 8 8 N [facility] HOSPITAL OFFICE 66821 Timur AMIN CONSULTAT 8 8 MEDICAL D ION SERV NEW/ESTAB FOUNDATIO PATIENT 40 MIN EMERGENCY 36830 [facility], DEPT 8 8 JEFFY SARAH VISIT EMERGENCY A HIGH PHYS INC SEVERITY& THREAT FUNCJ EMERGENCY 36172 GRACIE WELLS 8 8 MEDICAL , C A [facility] SERV T VISIT FOUNDATIO MODERATE SEVERITY HOSPITAL [facility] - 8 8 [facility]ER[facility] 27346 [facility] 8 8 Y [facility] T VISIT LIMITED/M INOR PROB EMERGENCY 27801 [facility] 8 8 Y [facility] T VISIT HIGH/URGE NT SEVERITY EMERGENCY 80843 GRACIE LANGE 8 8 MEDICAL I, MORELIA [facility] SERV A T VISIT FOUNDATIO MODERATE SEVERITY HOSPITAL [facility] - 8 8 [facility]ER[facility] 13173 JOESPH HERMOSILLO, DEPT 8 8 JEFFY KIDD VISIT EMERGENCY HIGH PHYS INC SEVERITY& THREAT FUNCJ
--- OUTSIDE RECORDS SUMMARY | 2017-03-05 03:31 | External Medical Summary Rpt | CCD ---
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 ESCALANTE JULIO TIC 1 MANIPLTV TX EXTRASPIN AL 1/> REGION CHIROPRAC 60510 ESCALANTE JULIO ESCALANTE JULIO TIC 1 MANIP[place]AT [place] SPINAL 3-4 REGIONS CHIROPRAC 58639 ESCALANTE JULIO ESCALANTE JULIO TIC 1 MANIPULAT [place] SPINAL 3-4 REGIONS MANUAL 41063 ESCALANTE JULIO ESCALANTE JULIO THERAPY 1 TQS 1/> REGIONS EACH 15 MINUTES CHIROPRAC 27537 ESCALANTE JULIO ESCALANTE JULIO TIC 1 MANIPLTV TX EXTRASPIN AL 1/> REGION THERAPEUT 82178 ESCALANTE JULIO ESCALANTE JULIO IC PX 1/> 1 AREAS EACH 15 MIN EXERCISES APPL 82773 ESCALANTE JULIO ESCALANTE JULIO MODALITY 1 1/> AREAS ELEC STIMJ UNATTENDE D APPL 01176 ESCALANTE JULIO ESCALANTE JULIO MODALITY 1 1/> AREAS TRACTION MECHANICA L APPLICATI 77019 ESCALANTE JULIO ESCALANTE JULIO ON 1 MODALITY 1/> AREAS HOT/COLD PACKS APPL 79496 ESCALANTE JULIO ESCALANTE JULIO MODALITY 1 1/> AREAS ELEC STIMJ UNATTENDE D APPLICATI 77886 ESCALANTE JULIO ESCALANTE JULIO ON 1 MODALITY 1/> AREAS HOT/COLD PACKS APPL 85379 ESCALANTE JULIO ESCALANTE JULIO MODALITY 1 1/> AREAS TRACTION MECHANICA L MANUAL 98230 ESCALANTE JULIO ESCALANTE JULIO THERAPY 1 TQS 1/> REGIONS EACH 15 MINUTES THERAPEUT 94736 ESCALANTE JULIO ESCALANTE JULIO IC PX 1/> 1 AREAS EACH 15 MIN EXERCISES CHIROPRAC 07319 ESCALANTE JULIO ESCALANTE JULIO TIC 1 MANIPLTV TX EXTRASPIN AL 1/> REGION CHIROPRA 13346 ESCALANTE JULIO ESCALANTE JULIO TIC 1 MANIPULAT [place] SPINAL 3-4 REGIONS CHIROPRA 60428 ESCALANTE JULIO ESCALANTE JULIO TIC 1 MANIPULAT [place] SPINAL 3-4 REGIONS CHIROPRA 15174 ESCALANTE JULIO ESCALANTE JULIO TIC 1 MANIPLTV TX EXTRASPIN AL 1/> REGION THERAPEUT 86415 ESCALANTE JULIO ESCALANTE JULIO IC PX 1/> 1 AREAS EACH 15 MIN EXERCISES MANUAL 94449 ESCALANTE JULIO ESCALANTE JULIO THERAPY 1 TQS 1/> REGIONS EACH 15 MINUTES APPL 02003 ESCALANTE JULIO ESCALANTE JULIO MODALITY 1 1/> AREAS ELEC STIMJ UNATTENDE D APPL 51749 ESCALANTE JULIO ESCALANTE JULIO MODALITY 1 1/> AREAS TRACTION MECHANICA L APPLICATI 73098 ESCALANTE JULIO ESCALANTE JULIO ON 1 MODALITY 1/> AREAS HOT/COLD PACKS APPLICATI 06626 ESCALANTE JULIO ESCALANTE JULIO ON 1 MODALITY 1/> AREAS HOT/COLD PACKS APPL 47973 ESCALANTE JULIO ESCALANTE JULIO MODALITY 1 1/> AREAS TRACTION MECHANICA L APPL 60567 ESCALANTE JULIO ESCALANTE JULIO MODALITY 1 1/> AREAS ELEC STIMJ UNATTENDE D MANUAL 48551 ESCALANTE JULIO ESCALANTE JULIO THERAPY 1 TQS 1/> REGIONS EACH 15 MINUTES THERAPEUT 94563 ESCALANTE JULIO ESCALANTE JULIO IC PX 1/> 1 AREAS EACH 15 MIN EXERCISES CHIROPRA 72777 ESCALANTE JULIO ESCALANTE JULIO TIC 1 MANIPLTV TX EXTRASPIN AL 1/> REGION CHIROPRA 30545 ESCALANTE JULIO ESCALANTE JULIO TIC 1 MANIPULAT [place] SPINAL 3-4 REGIONS CHIROPRA 39739 ESCALANTE JULIO ESCALANTE JULIO TIC 1 MANIPULAT [place] SPINAL 3-4 REGIONS CHIROPRA 47468 ESCALANTE JULIO ESCALANTE JULIO TIC 1 MANIPLTV TX EXTRASPIN AL 1/> REGION THERAPEUT 08249 ESCALANTE JULIO ESCALANTE JULIO IC PX 1/> 1 AREAS EACH 15 MIN EXERCISES MANUAL 47733 ESCALANTE JULIO ESCALANTE JULIO THERAPY 1 TQS 1/> REGIONS EACH 15 MINUTES APPL 18995 ESCALANTE JULIO ESCALANTE JULIO MODALITY 1 1/> AREAS ELEC STIMJ UNATTENDE D APPL 57484 ESCALANTE JULIO ESCALANTE JULIO MODALITY 1 1/> AREAS TRACTION MECHANICA L APPLICATI 33470 ESCALANTE JULIO ESCALANTE JULIO ON 1 MODALITY 1/> AREAS HOT/COLD PACKS APPLICATI 76459 ESCALANTE JULIO ESCALANTE JULIO ON 1 MODALITY 1/> AREAS HOT/COLD PACKS APPL 66297 ESCALANTE JULIO ESCALANTE JULIO MODALITY 1 1/> AREAS TRACTION MECHANICA L APPL 30507 ESCALANTE JULIO ESCALANTE JULIO MODALITY 1 1/> AREAS ELEC STIMJ UNATTENDE D THERAPEUT 79176 ESCALANTE JULIO ESCALANTE JULIO IC PX 1/> 1 AREAS EACH 15 MIN EXERCISES MANUAL 53145 ESCALANTE JULIO ESCALANTE JULIO THERAPY 1 TQS 1/> REGIONS EACH 15 MINUTES CHIROPRA 79837 ESCALANTE JULIO ESCALANTE JULIO TIC 1 MANIPULAT [place] SPINAL 3-4 REGIONS CHIROPRA 30913 ESCALANTE JULIO ESCALANTE JULIO TIC 1 MANIPLTV TX EXTRASPIN AL 1/> REGION CHIROPRA 92214 ESCALANTE JULIO ESCALANTE JULIO TIC 1 MANIPLTV TX EXTRASPIN AL 1/> REGION CHIROPRA 76806 ESCALANTE JULIO ESCALANTE JULIO TIC 1 MANIPULAT [place] SPINAL 3-4 REGIONS THERAPEUT 13388 ESCALANTE JULIO ESCALANTE JULIO IC PX 1/> 1 AREAS EACH 15 MIN EXERCISES MANUAL 40692 ESCALANTE JULIO ESCALANTE JULIO THERAPY 1 TQS 1/> REGIONS EACH 15 MINUTES APPL 74350 ESCALANTE JULIO ESCALANTE JULIO MODALITY 1 1/> AREAS ELEC STIMJ UNATTENDE D APPL 96981 ESCALANTE JULIO ESCALANTE JULIO MODALITY 1 1/> AREAS TRACTION MECHANICA L APPLICATI 06465 ESCALANTE JULIO ESCALANTE JULIO ON 1 MODALITY 1/> AREAS HOT/COLD PACKS APPL 76287 ESCALANTE JULIO ESCALANTE JULIO MODALITY 1 1/> AREAS TRACTION MECHANICA L APPL 94670 ESCALANTE JULIO ESCALANTE JULIO MODALITY 1 1/> AREAS ELEC STIMJ UNATTENDE D APPLICATI 16680 ESCALANTE JULIO ESCALANTE JULIO ON 1 MODALITY 1/> AREAS HOT/COLD PACKS THERAPEUT 87610 ESCALANTE JULIO ESCALANTE JULIO IC PX 1/> 1 AREAS EACH 15 MIN EXERCISES MANUAL 78911 ESCALANTE JULIO ESCALANTE JULIO THERAPY 1 TQS 1/> REGIONS EACH 15 MINUTES CHIROPRA 22019 ESCALANTE JULIO ESCALANTE JULIO TIC 1 MANIPLTV TX EXTRASPIN AL 1/> REGION CHIROPRAC 21296 ESCALANTE JULIO ESCALANTE JULIO TIC 1 MANIPULAT [place] SPINAL 3-4 REGIONS CHIROPRAC 60676 ESCALANTE JULIO ESCALANTE JULIO TIC 1 MANIPULAT [place] SPINAL 3-4 REGIONS CHIROPRAC 77003 ESCALANTE JULIO ESCALANTE JULIO TIC 1 MANIPLTV TX EXTRASPIN AL 1/> REGION THERAPEUT 68104 ESCALANTE JULIO ESCALANTE JULIO IC PX 1/> 1 AREAS EACH 15 MIN EXERCISES MANUAL 71283 ESCALANTE JULIO ESCALANTE JULIO THERAPY 1 TQS 1/> REGIONS EACH 15 MINUTES APPLICATI 10712 ESCALANTE JULIO ESCALANTE JULIO ON 1 MODALITY 1/> AREAS HOT/COLD PACKS APPL 82913 ESCALANTE JULIO ESCALANTE JULIO MODALITY 1 1/> AREAS ELEC STIMJ UNATTENDE D APPL 69691 ESCALANTE JULIO ESCALANTE JULIO MODALITY 1 1/> AREAS TRACTION MECHANICA L APPL 97085 ESCALANTE JULIO ESCALANTE JULIO MODALITY 1 1/> AREAS ELEC STIMJ UNATTENDE D APPL 00677 ESCALANTE JULIO ESCALANTE JULIO MODALITY 1 1/> AREAS TRACTION MECHANICA L APPLICATI 94080 ESCALANTE JULIO ESCALANTE JULIO ON 1 MODALITY 1/> AREAS HOT/COLD PACKS CHIROPRAC 05158 ESCALANTE JULIO ESCALANTE JULIO TIC 1 MANIPLTV TX EXTRASPIN AL 1/> REGION MANUAL 85959 ESCALANTE JULIO ESCALANTE JULIO THERAPY 1 TQS 1/> REGIONS EACH 15 MINUTES THERAPEUT 53859 ESCALANTE JULIO ESCALANTE JULIO IC PX 1/> 1 AREAS EACH 15 MIN EXERCISES CHIROPRAC 19946 ESCALANTE JULIO ESCALANTE JULIO TIC 1 MANIPULAT [place] SPINAL 3-4 REGIONS CHIROPRAC 61706 ESCALANTE JULIO ESCALANTE JULIO TIC 1 MANIPULAT [place] SPINAL 3-4 REGIONS THERAPEUT 12694 ESCALANTE JULIO ESCALANTE JULIO IC PX 1/> 1 AREAS EACH 15 MIN EXERCISES MANUAL 56391 ESCALANTE JULIO ESCALANTE UJLIO THERAPY 1 TQS 1/> REGIONS EACH 15 MINUTES CHIROPRA 62142 ESCALANTE JULIO ESCALANTE JULIO TIC 1 MANIPLTV TX EXTRASPIN AL 1/> REGION APPLICATI 01106 ESCALANTE JULIO ESCALANTE JUILO ON 1 MODALITY 1/> AREAS HOT/COLD PACKS APPL 88000 ESCALANTE JULIO ESCALANTE JULIO MODALITY 1 1/> AREAS TRACTION MECHANICA L APPL 15047 ESCALANTE JULIO ESCALANTE JULIO MODALITY 1 1/> AREAS ELEC STIMJ UNATTENDE D RADEX 70709 [facility] UNIV[facility] FOOT 1 Y Y COMPLETE [facility] MINIMUM 3 VIEWS RADEX 30511 [facility] [place] TRISH FOOT 1 RADIOLOGY RHO COMPLETE MINIMUM 3 VIEWS APPL 73041 ESCALANTE JULIO ESCALANTE JULIO MODALITY 1 1/> AREAS ELEC STIMJ UNATTENDE D APPL 63306 ESCALANTE JULIO ESCALANTE JULIO MODALITY 1 1/> AREAS TRACTION MECHANICA L APPLICATI 61649 ESCALANTE JULIO ESCALANTE JULIO ON 1 MODALITY 1/> AREAS HOT/COLD PACKS CHIROPRAC 01457 ESCALANTE JULIO ESCALANTE JULIO TIC 1 MANIPLTV TX EXTRASPIN AL 1/> REGION MANUAL 65911 ESCALANTE JULIO ESCALANTE JULIO THERAPY 1 TQS 1/> REGIONS EACH 15 MINUTES THERAPEUT 40620 ESCALANTE JULIO ESCALANTE JULIO IC PX 1/> 1 AREAS EACH 15 MIN EXERCISES CHIROPRAC 67975 ESCALANTE JULIO ESCALANTE JULIO TIC 1 MANIPULAT [place] SPINAL 3-4 REGIONS CHIROPRAC 43433 ESCALANTE JULIO ESCALANTE JULIO TIC 1 MANIPULAT [place] SPINAL 3-4 REGIONS THERAPEUT 67987 ESCALANTE JULIO ESCALANTE JULIO IC PX 1/> 1 AREAS EACH 15 MIN EXERCISES MANUAL 09947 ESCALANTE JULIO ESCALANTE JULIO THERAPY 1 TQS 1/> REGIONS EACH 15 MINUTES CHIROPRAC 33294 ESCALANTE JULIO ESCALANTE JULIO TIC 1 MANIPLTV TX EXTRASPIN AL 1/> REGION APPLICATI 43186 ESCALANTE JULIO ESCALANTE JULIO ON 1 MODALITY 1/> AREAS HOT/COLD PACKS APPL 80812 ESCALANTE JULIO ESCALANTE JULIO MODALITY 1 1/> AREAS TRACTION MECHANICA L APPL 13096 ESCALANTE JULIO ESCALANTE JULIO MODALITY 1 1/> AREAS ELEC STIMJ UNATTENDE D APPL 48551 ESCALANTE JULIO ESCALANTE JULIO MODALITY 1 1/> AREAS ELEC STIMJ UNATTENDE D APPL 28177 ESCALANTE JULIO ESCALANTE JULIO MODALITY 1 1/> AREAS TRACTION MECHANICA L APPLICATI 89972 ESCALANTE JULIO ESCALANTE JULIO ON 1 MODALITY 1/> AREAS HOT/COLD PACKS CHIROPRAC 13565 ESCALANTE JULIO ESCALANTE JULIO TIC 1 MANIPLTV TX EXTRASPIN AL 1/> REGION MANUAL 51112 ESCALANTE JULIO ESCALANTE JULIO THERAPY 1 TQS 1/> REGIONS EACH 15 MINUTES THERAPEUT 05055 ESCALANTE JULIO ESCALANTE JULIO IC PX 1/> 1 AREAS EACH 15 MIN EXERCISES CHIROPRAC 71800 ESCALANTE JULIO ESCALANTE JULIO TIC 1 MANIPULAT [place] SPINAL 3-4 REGIONS RADEX 52213 [facility] [place] KOSTELIC SPINE 1 RADIOLOGY VINICIO LUMBOSACR AL 2/3 VIEWS CHIROPRAC 97767 ESCALANTE JULIO ESCALANTE JULIO TIC 1 MANIPULAT [place] SPINAL 3-4 REGIONS MANUAL 79325 ESCALANTE JULIO ESCALANTE JULIO THERAPY 1 TQS 1/> REGIONS EACH 15 MINUTES CHIROPRAC 11529 ESCALANTE JULIO ESCALANTE JULIO TIC 1 MANIPLTV TX EXTRASPIN AL 1/> REGION THERAPEUT 54017 ESCALANTE JULIO ESCALANTE JULIO IC PX 1/> 1 AREAS EACH 15 MIN EXERCISES APPL 28781 ESCALANTE JULIO ESCALANTE JULIO MODALITY 1 1/> AREAS ELEC STIMJ UNATTENDE D APPLICATI 77394 ESCALANTE JULIO ESCALANTE JULIO ON 1 MODALITY 1/> AREAS HOT/COLD PACKS APPL 92752 ESCALANTE JULIO ESCALANTE JULIO MODALITY 1 1/> AREAS TRACTION MECHANICA L APPL 73408 ESCALANTE JULIO ESCALANTE JULIO MODALITY 1 1/> AREAS TRACTION MECHANICA L APPLICATI 98713 ESCALANTE JULIO ESCALANTE JULIO ON 1 MODALITY 1/> AREAS HOT/COLD PACKS APPL 47498 ESCALANTE JULIO ESCALANTE JULIO MODALITY 1 1/> AREAS ELEC STIMJ UNATTENDE D THERAPEUT 55808 ESCALANTE JULIO ESCALANTE JULIO IC PX 1/> 1 AREAS EACH 15 MIN EXERCISES CHIROPRA 81494 ESCALANTE JULIO ESCALANTE JULIO TIC 1 MANIPLTV TX EXTRASPIN AL 1/> REGION MANUAL 79640 ESCALANTE JULIO ESCALANTE JULIO THERAPY 1 TQS 1/> REGIONS EACH 15 MINUTES CHIROPRA 83387 ESCALANTE JULIO ESCALANTE JULIO TIC 1 MANIPULAT [place] SPINAL 3-4 REGIONS CHIROPRAC 14779 ESCALANTE JULIO ESCALANTE JULIO TIC 1 MANIPULAT [place] SPINAL 3-4 REGIONS CHIROPRA 89049 ESCALANTE JULIO ESCALANTE JULIO TIC 1 MANIPLTV TX EXTRASPIN AL 1/> REGION THERAPEUT 08365 ESCALANTE JULIO ESCALANTE JULIO IC PX 1/> 1 AREAS EACH 15 MIN EXERCISES MANUAL 63160 ESCALANTE JULIO ESCALANTE JULIO THERAPY 1 TQS 1/> REGIONS EACH 15 MINUTES APPL 56907 ESCALANTE JULIO ESCALANTE JULIO MODALITY 1 1/> AREAS ELEC STIMJ UNATTENDE D APPLICATI 06549 ESCALANTE JULIO ESCALANTE JULIO ON 1 MODALITY 1/> AREAS HOT/COLD PACKS APPL 92273 ESCALANTE JULIO ESCALANTE JULIO MODALITY 1 1/> AREAS TRACTION MECHANICA L APPL 71213 ESCALANTE JULIO ESCALANTE JULIO MODALITY 1 1/> AREAS TRACTION MECHANICA L APPLICATI 20153 ESCALANTE JULIO ESCALANTE JULIO ON 1 MODALITY 1/> AREAS HOT/COLD PACKS APPL 68321 ESCALANTE JULIO ESCALANTE JULIO MODALITY 1 1/> AREAS ELEC STIMJ UNATTENDE D CHIROPRAC 90935 ESCALANTE JULIO ESCALANTE JULIO TIC 1 MANIPLTV TX EXTRASPIN AL 1/> REGION THERAPEUT 33880 ESCALANTE JULIO ESCALANTE JULIO IC PX 1/> 1 AREAS EACH 15 MIN EXERCISES MANUAL 46278 ESCALANTE JULIO ESCALANTE JULIO THERAPY 1 TQS 1/> REGIONS EACH 15 MINUTES CHIROPRAC 15318 ESCALANTE JULIO ESCALANTE JULIO TIC 1 MANIPULAT [place] SPINAL 3-4 REGIONS RADIOLOGI 97739 [facility] [place] OMAR MAT C EXAM 1 RADIOLOGY CHEST 2 VIEWS FRONTAL&L ATERAL RADEX 25401 [facility] MAGUIRE SPINE 1 Y OF MUR THORACIC [place] 2 VIEWS HOSPI RADEX 06249 [place] DESI SPINE 1 MEDICAL JULIO THORACIC SERV 2 VIEWS FOUNDATIO RADIOLOGI 77653 [place] DESI C EXAM 1 MEDICAL JULIO CHEST 2 SERV VIEWS FOUNDATIO FRONTAL&L ATERAL RADEX 01797 [facility] [place] LASHAE ELBOW 1 RADIOLOGY DANNI COMPLETE [place] 3 [place] [address] CHIPPS MOSES JAM SURG 1 MARLON & PATHOLOGY TING GROSS&CONCHIS ROSCOPIC EXAM RPR 71854 VENGUSWAM VENGUSWAM UMBILICAL 1 Y CATARINA Y CATARINA HRNA 5 YRS/> REDUCIBLE SIMPLE 14486 YARIEL GALO REPAIR 1 EMERGENCY CHAU SCALP/NEC SERVICES K/AX/MAIRA T/TRUNK 2.5CM/< URNLS DIP 72219 [facility] 1 N N STICK/TAB [facility] LET HOSPITA HOSPITA REAGENT AUTO MICROSCOP Y THERAPEUT 56114 [facility] IC 1 N N PROPHYLAC [facility] TIC/DX HOSPITA HOSPITA INJECTION SUBQ/IM BASIC 68324 [facility] METABOLIC 1 N N PANEL [facility] CALCIUM HOSPITA HOSPITA TOTAL RADIOLOGI 63264 [facility] GRACIE Freeman EXAM 1 RADIOLOGY CHEST 2 VIEWS FRONTAL&L ATERAL COLLECTIO 83460 [facility] N VENOUS 1 N N BLOOD [facility] VENIPUNCT HOSPITA HOSPITA URE BLOOD 84026 [facility] COUNT 1 N N SMEAR [facility] MCRSCP HOSPITA HOSPITA W/MNL DIFRNTL WBC COUNT BLOOD 46060 [facility] COUNT 1 N N COMPLETE [facility] AUTOMATED HOSPITA HOSPITA THROMBOPL 30569 [facility] ASTIN 1 N N TIME [facility] PARTIAL HOSPITA HOSPITA PLASMA/WH OLE BLOOD ECG 00547 [facility] ROUTINE 1 N N ECG [facility] W/LEAST HOSPITA HOSPITA 12 LDS TRCG ONLY W/O I&R PROTHROMB 25248 [facility] IN TIME 1 N N [facility] HOSPITA HOSPITA IMMUNOASS 36651 [facility] DANNIELLE AY NFCT 1 N URGENT ABD AGT ANTB CARE QUAL/SEMI LOUIE 1 STEP BLOOD 19127 [facility] DANNIELLE OCCULT 1 N URGENT ABD PEROXIDAS CARE E ACTV QUAL FECES 1 DETER SERVICES 62518 [facility] DANNIELLE PROVIDED 1 N URGENT ABD OFFICE CARE OTH/THN REG SCHED HOURS MRI ANY 25230 [facility] GRACIE GE JT LOWER 1 RADIOLOGY EXTREM W/O CONTRAST MATRL SERVICES 63342 [facility] DANNIELLE PROVIDED 1 N URGENT ABD OFFICE CARE OTH/THN REG SCHED HOURS HEPATITIS 83331 [facility] B CORE 1 N N ANTIBODY [facility] HBCAB HOSPITA HOSPITA TOTAL HEPATITIS 90524 [facility] B SURF 1 N N ANTIBODY [facility] HBSAB HOSPITA HOSPITA HEPATITIS 15528 [facility] A 1 N N ANTIBODY [facility] HAAB HOSPITA HOSPITA COLLECTIO 67629 [facility] N VENOUS 1 N N BLOOD [facility] VENIPUNCT HOSPITA HOSPITA URE ACUTE 94250 [facility] HEPATITIS 1 N N PANEL [facility] HOSPITA HOSPITA RADIOLOGI 30350 [facility] [place] OMAR MAT C 1 RADIOLOGY EXAMINATI ON KNEE 3 VIEWS THERAPEUT 65591 [facility] AUSTENBETSY IC 1 N URGENT ABD PROPHYLAC CARE TIC/DX INJECTION SUBQ/IM ECG 10554 [facility] ROUTINE 0 ANNITA ADR ECG CARDIOLOG W/LEAST Y CLINIC 12 LDS W/I&R ACUTE 23284 [facility] HEPATITIS 0 N N PANEL [facility] HOSPITA HOSPITA COLLECTIO 62833 [facility] N VENOUS 0 N N BLOOD [facility] VENIPCRITICAL [facility] [place] [address] [facility] [place] OMAR MAT ABDOMINAL 0 RADIOLOGY REAL TIME W/IMAGE LIMITED LIPID 44163 [facility] PANEL 0 N N [facility] HOSPITA COMPREHEN 22852 [facility] SIVE 0 N N METABOLIC [facility] HOSPITA HOSPITA COLLECTIO 31447 [facility] N VENOUS 0 N N BLOOD [facility] [place]IPUNCT [place] [address] [facility] THYROID 0 N N STIMULATI [facility] HOSPITA HOSPITA [facility] 02201 [facility] AUSTENLEELAMichelle PROVIDED 0 N URGENT ABD OFFICE CARE OTH/THN REG SCHED HOURS MRI 44580 [facility] [place] TRISH SPINAL 0 RADIOLOGY RHO CANAL CERVICAL W/O CONTRAST MATRL RADEX 83210 RAMÓN MELGAR ELBOW 0 [facility] COMPLETE INC INC MINIMUM 3 VIEWS GLUCOSE 77125 [facility] DANNIELLE QUANTITAT 0 N URGENT ABD CLARY BLOOD CARE XCPT REAGENT STRIP HEMOGLOBI 67937 [facility] N 0 [facility] GLYCOSYLA THERESA A1C BLOOD 59684 [facility] COUNT 0 [facility] COMPLETE AUTO&[place] [address] [facility] FOLIC 0 [facility] ACID SERUM COMPREHEN 16712 [facility] SIVE 0 [facility] METABOLIC PANEL SERVICES 63373 [facility] DANNIELLE PROVIDED 0 N URGENT ABD OFFICE CARE OTH/THN REG SCHED HOURS NDL EMG 1 15025 GARCÍA TRA GARCÍA TRA XTR W/WO 0 RELATED PARASPINA L AREAS NRV CNDJ 74272 GARCÍA TRA GARCÍA TRA AMPLT&LAT 0 NCY EA NRV MOTR W/O F-WAVE STD NRV CNDJ 21013 GARCÍA TRA GARCÍA TRA AMPLT&LAT 0 ENCY EA NRV MOTOR W/F-WAVE STD NRV CNDJ 94399 GARCÍA TRA GARCÍA TRA AMPLITUDE 0 & LATENCY EACH NERVE SENSORY RADEX 02319 [facility] ELBOW 0 N N COMPLETE COMMUNITY COMMUNITY MINIMUM 3 HOSPITA HOSPITA VIEWS RADEX 64310 [facility] [place] OMAR MAT HAND 0 RADIOLOGY MINIMUM 3 VIEWS RADEX 21496 [facility] [place] OMAR MAT SPINE 0 RADIOLOGY LUMBOSACR AL 2/3 VIEWS RADEX 95755 [facility] [place] OMAR MAT WRIST 0 RADIOLOGY COMPLE[place] [place] [address] [facility] [place] OMAR MAT ABDOMEN 0 RADIOLOGY W/CONTRAS T MATERIAL CT PELVIS 28460 [facility] [place] OMAR MAT 0 RADIOLOGY W/CONTRAS T MATERIAL RADEX 25264 [place] NICKELS SPINE 0 MEDICAL [place] LUMBOSACR SERV AL 2/3 FOUNDATIO VIEWS RADEX 15629 [place] BANDAR SPINE 0 MEDICAL STEPH LUMBOSACR IMAGING AL ASS MINIMUM 4 VIEWS RADEX 96004 RAMÓN RAMOSON SPINE 0 [facility] THORACIC INC INC 3 VIEWS RADEX 85588 [place] BANDAR SPINE 0 MEDICAL STEPH CERVICAL IMAGING 6 OR MORE ASS VIEWS RADEX 25356 [facility] [place] OMAR, FOOT 0 RADIOLOGY WILLIAM Hahn COMPLETE MINIMUM 3 VIEWS RADEX TOE 67140 [place] CELE MINIMUM 0 MEDICAL MARIO 2 VIEWS IMAGING ASS URNLS DIP 85179 RAMÓN MELGAR 0 [facility] STICK/TAB INC INC LET REAGENT AUTO MICROSCOP Y URNLS DIP 70125 [facility] 0 [facility] STICK/[facility] LET REAGENT AUTO MICROSCOP Y COLLECTIO 55519 [facility] N VENOUS 0 [facility] VENIPUNCT URE CUL BACT 93703 [facility] XCPT 0 [facility] BLOOD/STO OL AEROBIC ISOL BLOOD 78707 [facility] COUNT 0 [facility] AUTO&AUTO DIFRNTL WBC CULTURE 75726 [facility] BACTERIAL 0 [facility] QUANTTATI VE COLONY COUNT URINE SUSCEPTIB 19038 [facility] LTY STDY 0 [facility] IAL MICRO/AGA R DILUTJ BASIC 34635 [facility] METABOLIC 0 [facility] CALCIUM TOTAL RADEX 87891 [facility] [place] TRISH, ELBOW 0 RADIOLOGY HALLIE G COMPLETE MINIMUM 3 VIEWS DUP-SCAN 25756 [facility] [place] XTR VEINS 0 RADIOLOGY LD, A D UNILATERA L/LIMITED STUDY RADEX 85518 [facility] [place] MARTINEZ, G ELBOW 2 0 RADIOLOGY T VIEWS NONINVASI 24409 [facility] UNIVERS VE 0 Y Y [facility] HOSPITAL OXIMETRY SINGLE DETER NONINVASI 23904 [facility] HOSPITAL OXIMETRY SINGLE DETER RADEX 47640 [facility] SACRUM & 0 Y Y [facility] MINIMUM 2 VIEWS RADEX TOE 74286 [facility] MINIMUM [address] RADEX [address]1026 [place] FRANK, FOOT 0 MEDICAL VALERIE N COMPLETE SERV MINIMUM 3 FOUNDATIO VIEWS CUL BACT 80089 JENNIFER RODRIGUEZ XCPT 9 [facility] BLOOD/STO OL AEROBIC ISOL SUSCEPTIB 94369 JENNIFER RODRIGUEZ LTY STDY 9 [facility] IAL MICRO/AGA R DILUTJ RADEX 45084 [facility] SPINE [address] [place] [address] LUMBOSACR AL 2/3 VIEWS INJECTION J1885 [address] KETOROLAC TROMETHAM INE PER 15 MG THERAPEUT 95757 [facility] IC [address] [place] [address] PROPHYLAC TIC/DX INJECTION SUBQ/IM RADIOLOGI 22045 [facility] GRACIE UREÑA C 9 RADIOLOGY J EXAMINATI ON TIBIA & FIBULA 2 VIEWS RADEX 85641 CN[facility] GRACIE UREÑA ANKLE 9 RADIOLOGY J COMPLETE MINIMUM 3 VIEWS STRAPPING 53705 [facility] AHMED, ANKLE 9 JEFFY SMITH &/FOOT EMERGENCY A PHYS INC ANES 46932 SHANIA SYG 9 ANESTHESI MIKE J MUSC & A GROUP NRV HEAD PSC NECK&POST ERIOR TRUNK LEVEL III 80132 PATHOLOGY PATHOLOGY SURG 9 & & PATHOLOGY CYTOLOGY CYTOLOGY LAB LAB GROSS&CONCHIS ROSCOPIC EXAM EXCISION 42587 SCHULSTDEA SCHULSTAD PILONIDAL 9 , QUITA , QUITA CYST/SINU S SIMPLE COLLECTIO 56020 JENNIFER RODRIGUEZ N VENOUS 9 [facility] VENIPUNCT URE BLOOD 35107 JENNIFER RODRIGUEZ COUNT 9 [facility] AUTO&AUTO DIFRNTL WBC BASIC 32846 JENNIFER RODRIGUEZ METABOLIC 9 [facility] CALCIUM TOTAL SUSCEPTIB 50437 RAMÓN MELGAR LTY STDY 9 [facility] ANTIMICRB INC INC IAL MICRO/AGA R DILUTJ CUL BACT 98569 RAMÓN MELGAR AEROBIC 9 [facility] ADDL INC INC METHS DEFINITIV E EA ISOL CUL BACT 65292 RAMÓN MELGAR XCPT 9 [facility] URINE INC INC BLOOD/STO OL AEROBIC ISOL RADEX 16961 [facility] [place] SCALF, FOOT 9 RADIOLOGY BOY E COMPLETE MINIMUM 3 VIEWS RADEX 65002 [facility] [place] SCALF, ANKLE 9 RADIOLOGY BOY E COMPLETE MINIMUM 3 VIEWS APPLICATI 53225 [facility] SHORT 9 JEFFY W E LEG EMERGENCY SPLINT PHYS INC CALF FOOT RADEX 00464 JENNIFER BOJASVIRON SPINE 9 [facility] AL 2/3 VIEWS RADEX 47694 RAMÓN MELGAR SPINE 9 [facility] LUMBOSACR INC INC AL MINIMUM 4 VIEWS RADIOLOGI 73222 RAMÓN MELGAR C 9 [facility] EXAMINATI INC INC ON PELVIS 1/2 VIEWS BASIC 37071 RAMÓN MELGAR METABOLIC 9 [facility] PANEL INC INC CALCIUM TOTAL 3D 73464 RAMÓN MELGAR RENDERING 9 [facility] INC INC W/INTERP& POSTPROC DIFF WORK STATION URNLS DIP 01023 RAMÓN MELGAR 9 [facility] STICK/TAB INC INC LET REAGENT AUTO MICROSCOP Y BLOOD 19559 RAMÓN MLEGAR COUNT 9 [facility] COMPLETE INC INC AUTO&[place] [address] [place] BANDAR, ABDOMEN 9 MEDICAL PITER P W/O IMAGING CONTRAST ASSOCIATE MATERIAL S CT PELVIS 17989 [place] BANDAR, W/O 9 MEDICAL PITER P CONTRAST IMAGING MATERIAL ASSOCIATE S THERAPEUT [address] PROPHYLAC TIC/DX INJECTION SUBQ/IM CUL BACT 37326 [facility] XCPT [address] [place] [address] URINE BLOOD/STO OL AEROBIC ISOL SMR PRIM [address] GRAM/GIEM SA STAIN BCT FUNGI/GAYATRI L RADEX 31472 [place] [place] NIRANJAN, SPINE 9 RADIOLOGY J LUMBOSACR AL 2/3 VIEWS EXCISION 09650 Timur AMIN PILONIDAL 9 MEDICAL D SERV CYST/SINU FOUNDATIO S SIMPLE LEVEL III 78931 [place] DIANN SURG 9 MEDICAL BRILL, PATHOLOGY SERV LUIS DANIEL Hdz FOUNDATIO GROSS&CONCHIS ROSCOPIC EXAM INJECTION J1100 [facility] 9 Y Y DEXAMETHO [facility] SONE SODIUM PHOSPHATE [address] IN[address] [facility] 9 Y Y MEPERIDIN [facility] E HCL PER [address] [facility] LACTATE 9 Y Y INFUSION [facility] UP TO [address] [facility] PILONIDAL 9 Y Y [facility] CYST/SINU S EXTENSIVE ANES 07781 [place] RODRIGUEZ, INTEG 9 MEDICAL RUI MUSC & SERVICES NRV HEAD NECK&POST ERIOR TRUNK INJECTION J2250 [facility] 9 Y Y MIDAZOLAM [facility] HCL PER [address] [facility] MORPHINE 9 Y Y SULFATE [facility] UP TO [address] IN[address] [facility] FENTANYL 9 Y Y CITRATE [facility] 0.[address] [facility] IED DRUGS 9 Y Y HOSPITAL HOSPITAL INJECTION J2405 [facility] 9 Y Y [facility] PER 1 MG HEPATIC 02492 [facility] 9 [place] [facility] PANEL INJECTION J2765 [facility] 9 Y Y METOCLOPR [facility] AMIDE HCL UP TO [address] [facility] NORMAL 9 Y Y SALINE [facility] SOLUTION [address] [facility] 9 Y Y DIPHENHYD [facility] RAMINE HCL UP TO [address] IN[address] [facility] 9 Y Y KETOROLAC [facility] TROMETHAM INE PER 15 MG MYOCRD 57274 CARDIOLOG [facility]Y SUN STD 8 Y EMILIE Mckeon WALL ASSOCIATE MOTION S OF QUAL/LOUIE [place] STD MYOCRD 85067 CARDIOLOG [facility] SUN IMG 8 Y EMILIE Mckeon TOMOG ASSOCIATE SPECT HULL INSPECTOR S OF STD [place] MYOCRD 31422 CARDIOLOG ROSY SUN STD 8 Y EMILIE Mckeon EJEC FXJ ASSOCIATE S OF WORTH CV STRS 74896 CARDIOLOG DINO, TST 8 Y EMILIE Mckeon XERS&/OR ASSOCIATE RX CONT S OF ECG WORTH W/SI&R COLLECTIO 90811 [facility] N VENOUS 8 N N BLOOD [facility] URE BLOOD 02970 [facility] COUNT 8 N N [facility] AUTO&AUTO [facility] DIFRNTL WBC LIPID 46310 [facility] PANEL 8 N N [facility] COMPREHEN 51210 [facility] SIVE 8 N N [facility] COMPREHEN 64697 OFFICE OFFICE SIVE 8 [facility] METABOLIC DIAGNOSTI DIAGNOSTI PANEL C C SERVICES SERVICES ECG 94428 CARDIOLOG DINO, ROUTINE 8 Y EMILIE S ECG ASSOCIATE W/LEAST S OF 12 LDS WORTH W/I&R CREATINE 75417 [facility] KINASE MB 8 N N FRACTION [facility] ECG 00398 [facility] ROUTINE 8 N N ECG [facility] W/[facility] 12 LDS TRG ONLY W/O I&R CREATINE 91356 [facility] KINASE 8 N N TOTAL [facility] BLOOD 29172 [facility] COUNT 8 N N [facility] AUTOAUTO [facility] [place] [address] [facility] TROPONIN 8 N N QUANTITAT [facility] RADIOLOGI 31586 CNTRL Lydia ANDUJAR 8 RADIOLOGY J EXAMINATI ON CHEST SINGLE VIEW FRONTAL COLLECTIO 29771 [facility] N VENOUS 8 N N BLOOD [facility] URE COMPREHEN 38162 [facility] SIVE 8 N N [facility] AMB A0427 [facility] SERVICE 8 N-DIANE Peterson-DIANE ALS CO EMS CO EMS EMERGENCY TRANSPORT LEVEL 1 ECG 76475 [facility] CELLAROSI ROUTINE 8 JEFFY - YORBA, ECG EMERGENCY BLANCO W/LEAST PHYS INC M 12 LDS I&R ONLY GROUND A0425 [facility] MILEAGE 8 N-DIANE N-DIANE PER CO EMS CO EMS STATUTE MILE INITIAL 91719 [facility] OBSERVATI 8 N N ON [facility] H[facility]PITAL 30 MINUTES ECG 62098 [facility] AHMED, ROUTINE 8 JEFFY SMITH ECG EMERGENCY A W/LEAST PHYS INC 12 LDS I&R ONLY RADIOLOGI 55630 [facility] AHMED, C 8 JEFFY SMITH EXAMINATI EMERGENCY A ON CHEST PHYS INC SINGLE VIEW FRONTAL Encounters Encounter Start End Date Code Location Performer Type Date EMERGENCY 37370 [facility] DEPT 7 7 EMERGENCY VISIT PHYS PSC HIGH SEVERITY& THREAT [facility] RAMÓN - 7 7 [facility] OUTPATIEN INC T EMERGENCY 82691 [facility] HOLLIDAY 7 7 PHYSICIAN U DEPARTMEN S, [facility] T VISIT HIGH/URGE NT SEVERITY EMERGENCY 27833 RAMÓN 7 7 [facility] DEPARTMEN INC T VISIT LOW/MODER SEVERITY HOSPITAL RAMÓN - 7 7 [facility] OUTPATIEN INC T EMERGENCY 43824 RAMÓN 7 7 [facility] DEPARTMEN INC T VISIT LOW/MODER SEVERITY EMERGENCY 63118 [facility] DIAL 7 7 PHYSICIAN DEPARTMEN S, [facility] T VISIT MODERATE SEVERITY EMERGENCY 13519 [facility] CHARLY 7 7 JEFFY DEPARTMEN EMERGENCY T VISIT PHYS HIGH/URGE NT SEVERITY EMERGENCY 45491 [facility] CALDERON 7 7 PHYSICIAN DEPARTMEN S, [facility] T VISIT MODERATE SEVERITY HOSPITAL RAMÓN - 7 7 [facility] OUTPATIEN INC T EMERGENCY 04968 RAMÓN 7 7 [facility] DEPARTMEN INC T VISIT LOW/MODER SEVERITY EMERGENCY 57912 7 7 [facility] DEPARTMEN E T VISIT HOSPITALS HIGH/URGE NT SEVERITY [facility] - 7 7 [facility] OUTPATIEN [facility] HOSPITALS OFFICE 19172 [facility] 7 7 [place] T NEW 30 PHYSICIAN MINUTES S ASSIST EMERGENCY 32416 [facility] 7 7 [place] DEPARTMEN PHYSICIAN T VISIT S MODERATE SEVERITY [facility]OSP[facility] - 7 7 [facility] OUT[facility] HOSPITALS OFFICE 22028 [facility]ENNIFER [facility] 7 7 PHYSICIAN T VISIT PRACTICE 15 L MINUTES OFFICE 01514 [facility] 7 7 PHYSICIAN T NEW 30 PRACTICE MINUTES L EMERGENCY 80565 [facility] 7 7 JEFFY DEPARTMEN EMERGENCY T VISIT PHYS MODERATE SEVERITY OFFICE 35334 GRACIE [facility] 7 7 MEDICAL T NEW 45 SERV MINUTES FOUNDATIO N EMERGENCY 00686 GRACIE DELAROSA 6 6 MEDICAL DEPARTMEN SERV T VISIT FOUNDATIO MODERATE N SEVERITY [facility]OSP[facility] - 6 6 [facility] OUTPATIEN E T HOSPITALS EMERGENCY 45676 6 6 [facility] DEPARTMEN E T VISIT HOSPITALS HIGH/URGE NT SEVERITY [facility] - 6 6 [facility] OUTPATIEN E T HOSPITALS EMERGENCY 43374 GRACIE GIL 6 6 MEDICAL DEPARTMEN SERV T VISIT FOUNDATIO HIGH/URGE N NT SEVERITY EMERGENCY 98024 [facility] 6 6 [place] DEPARTMEN PHYSICIAN T VISIT S ASSIST LOW/MODER SEVERITY HOSPITAL [facility] 6 6 N OUTPATIEN COMMUNTIY T HOSPITA EMERGENCY 80857 [facility] 6 6 N DEPARTMEN COMMUNTIY T VISIT HOSPITA HIGH/URGE NT SEVERITY EMERGENCY 28300 [place] KANDI 6 6 MEDICAL DEPARTMEN SERV T VISIT FOUNDATIO LOW/MODER N SEVERITY EMERGENCY 25716 6 6 [facility] DEPARTMEN E T VISIT HOSPITALS LOW/MODER SEVERITY [facility] - 6 6 [facility] OUTPATIEN E T HOSPITALS OFFICE 61387 JENNIFER MALU KENYATTA OUTPATIEN 6 6 PHYSICIAN T NEW 30 PRACTICE MINUTES L HOSPITAL [facility] - 6 6 [facility] OUTPATIEN E T HOSPITALS EMERGENCY 13759 6 6 [facility] DEPARTMEN E T VISIT HOSPITALS LOW/MODER SEVERITY EMERGENCY 49325 GRACIE SURAJ CARL 6 6 MEDICAL DEPARTMEN SERV T VISIT FOUNDATIO MODERATE N SEVERITY HOSPITAL RAMÓN - 6 6 [facility] OUTPATIEN INC T EMERGENCY 79232 RAMÓN 6 6 [facility] DEPARTMEN INC T VISIT LIMITED/M INOR PROB EMERGENCY 55863 [facility] CALDERON 6 6 [facility] T VISIT MODERATE SEVERITY EMERGENCY 67689 [facility]IT [facility] 6 6 JEFFY CARTAGENA DEPARTMEN EMERGENCY T VISIT PHYS MODERATE SEVERITY HOSPITAL RAMÓN - 6 6 [facility] OUTPATIEN INC T EMERGENCY 92458 RAMÓN 6 6 [facility] DEPARTMEN INC T VISIT LIMITED/M INOR PROB EMERGENCY 95917 [facility] HOLLIDAY 6 6 PHYSICIAN Priya [facility]CALVES [facility] T VISIT MODERATE SEVERITY EMERGENCY 79229 [facility] 6 6 JEFFY GASCA DEPARTMEN EMERGENCY T VISIT PHYS HIGH/URGE NT SEVERITY EMERGENCY 53311 [facility] VALENTINE 6 6 PHYSICIAN KENYATTA [facility] S, [facility] T VISIT MODERATE SEVERITY HOSPITAL RAMÓN - 6 6 [facility] OUTPATIEN INC T EMERGENCY 55575 RAMÓN 6 6 [facility] DEPARTMEN INC T VISIT LIMITED/M INOR PROB EMERGENCY 20641 [facility] GREEN 6 6 JEFFY IVANNA DEPARTMEN EMERGENCY T VISIT PHYS MODERATE SEVERITY HOSPITAL RAMÓN - 6 6 [facility] OUTPATIEN INC T OFFICE 61840 [facility] 6 6 [place] KIEL T VISIT ADULT & 25 PED MINUTES HOSPITAL RAMÓN - 6 6 [facility] OUTPATIEN INC T HOSPITAL RAMÓN - 6 6 [facility] OUTPATIEN INC T HOSPITAL RAMÓN - 6 6 [facility] OUTPATIEN INC T EMERGENCY 24253 RAMÓN 6 6 [facility] DEPARTMEN INC T VISIT HIGH/URGE NT SEVERITY OFFICE 83558 [facility] 6 6 [place] KIEL T VISIT ADULT & 25 PED MINUTES OFFICE 35646 [facility] 6 6 [facility] KIEL ION ADULT & NEW/ESTAB PED PATIENT 60 MIN EMERGENCY 64511 [facility] SWINEY 6 6 JEFFY PAT DEPARTMEN EMERGENCY T VISIT PHYS MODERATE SEVERITY EMERGENCY 60943 [facility] ARNOLD 6 6 JEFFY OSIEL DEPARTMEN EMERGENCY T VISIT PHYS MODERATE SEVERITY EMERGENCY 56891 [facility] SON BAB 6 6 JEFFY DEPARTMEN EMERGENCY T VISIT PHYS MODERATE SEVERITY EMERGENCY 52593 [facility] VALENTINE 6 6 PHYSICIAN KENYATTA GILBERT S PLLC T VISIT MODERATE SEVERITY HOSPITAL RAMÓN - 6 6 [facility] OUTPATIEN INC T EMERGENCY 17423 RAMÓN 6 6 [facility] DEPARTMEN INC T VISIT LOW/MODER SEVERITY EMERGENCY 27222 RAMÓN 6 6 [facility] DEPARTMEN INC T VISIT LOW/MODER SEVERITY HOSPITAL RAMÓN - 6 6 [facility] OUTPATIEN INC T EMERGENCY 28386 [facility] MAJOR 6 6 PHYSICIAN DEPARTMEN S, PLLC T VISIT MODERATE SEVERITY OFFICE 70101 [facility] OUTPATIEN 6 6 MD LUCI, T NEW 45 PSC MINUTES HOSPITAL RAMÓN - 6 6 [facility] OUTPATIEN INC T OFFICE 12895 RAMÓN OUTPATIEN 6 6 [facility] T VISIT INC 10 MINUTES EMERGENCY 65564 RAMÓN 6 6 [facility] DEPARTMEN INC T VISIT LOW/MODER SEVERITY HOSPITAL RAMÓN - 6 6 [facility] OUTPATIEN INC T EMERGENCY 19762 [facility] MATTHEW 6 6 PHYSICIAN CONCHIS DEPARTMEN S, PLLC T VISIT MODERATE SEVERITY HOSPITAL RAMÓN - 5 5 [facility] OUTPATIEN INC T EMERGENCY 73495 RAMÓN 5 5 [facility] DEPARTMEN INC T VISIT LOW/MODER SEVERITY EMERGENCY 18648 [facility] MATTHEW 5 5 PHYSICIAN DEPARTMEN S, [facility] T VISIT MODERATE SEVERITY EMERGENCY 57483 [facility] RANKIN 5 5 JEFFY [facility] T VISIT PHYS HIGH/URGE NT SEVERITY HOSPITAL UNIVERSIT - 5 5 Y [facility] EMERGENCY 19773 GRACIE ISAAC 5 5 MEDICAL ALEX DEPARTMEN SERV T VISIT FOUNDATIO MODERATE N SEVERITY HOSPITAL RAMÓN - 5 5 [facility] OUTPATIEN INC T EMERGENCY 11466 [facility] MATTHEW DEPT 5 5 PHYSICIAN VISIT S, PLLC HIGH SEVERITY& THREAT FUNCJ EMERGENCY 93560 [facility] NORIS 5 5 JEFFY ELO DEPARTMEN EMERGENCY T VISIT PHYS MODERATE SEVERITY HOSPITAL OSAGELALITO - 5 5 N OUTPATIEN COMMUNTIY T HOSPITA EMERGENCY 82369 [facility] CELLAROSI 5 5 JEFFY - [facility] PAT T VISIT PHYS MODERATE SEVERITY HOSPITAL RAMÓN - 5 5 [facility] OUTPATIEN INC T HOSPITAL RAMÓN - 5 5 [facility] OUTPATIEN INC T EMERGENCY 45612 [facility] 5 5 JEFFY ELO DEPARTMEN EMERGENCY T VISIT PHYS MODERATE SEVERITY EMERGENCY 31500 RAMÓN MATTHEW 5 5 [facility] T VISIT P LOW/MODER SEVERITY EMERGENCY 05892 JOESPH CHAU [facility] 4 4 JEFFY DEPARTMEN EMERGENCY T VISIT PHYS MODERATE SEVERITY OFFICE 40427 [facility]U SALCEDOO OUTPATIEN 4 4 KENYATTA KENYATTA T VISIT 25 MINUTES EMERGENCY 98190 [facility] 4 4 JEFFY PAT DEPARTMEN EMERGENCY T VISIT PHYS MODERATE SEVERITY EMERGENCY 45611 RAMÓN 4 4 [facility] DEPARTMEN INC T VISIT LOW/MODER SEVERITY HOSPITAL RAMÓN - 4 4 [facility] OUTPATIEN INC T EMERGENCY 40734 DON MATTHEW 4 4 [facility] DEPARTMEN T VISIT MODERATE SEVERITY EMERGENCY 65761 KANDI MILES 4 4 DEPARTMEN T VISIT MODERATE SEVERITY EMERGENCY 34528 KANDI MILES 4 4 DEPARTMEN T VISIT MODERATE SEVERITY EMERGENCY 11514 CELLAROSI CELLAROSI 4 4 - YORBA - YORBA DEPARTMEN PAT PAT T VISIT HIGH/URGE NT SEVERITY EMERGENCY 45152 ALFARIS ALFARIS 4 4 [facility] DEPARTMEN T VISIT HIGH/URGE NT SEVERITY Emergency CORINNA Matthew MD (ER) 4 20:03 4 20:30 [facility] EMERGENCY 25166 DON MATTHEW 4 4 [facility] DEPARTMEN T VISIT MODERATE SEVERITY HOSPITAL RAMÓN - 3 3 [facility] OUTPATIEN INC T EMERGENCY 71207 CHUY II CHUY II 3 O O DEPARTMEN T VISIT MODERATE SEVERITY Emergency CORINNA Gupta MD (ER) 3 16:00 3 16:10 [facility] EMERGENCY 08566 SOKAN BAB SOKAN BAB 3 3 DEPARTMEN T VISIT MODERATE SEVERITY Emergency CORINNA DENISE (ER) 3 02:20 3 02:55 [facility] EMERGENCY 05992 ALFARIS ALFARIS 3 3 [facility] DEPARTMEN T VISIT MODERATE SEVERITY EMERGENCY 91425 RECHTIN RECHTIN 3 3 [facility] DEPARTMEN T VISIT MODERATE SEVERITY Emergency CORINNA Chau MD (ER) 3 17:05 3 17:10 [facility] EMERGENCY 64611 KANDI MILES 3 3 DEPARTMEN T VISIT MODERATE SEVERITY Emergency CORINNA Gupta MD (ER) 3 15:40 3 16:15 [facility] EMERGENCY 17086 SONANCYN BAB SOKAN BAB 3 3 DEPARTMEN T VISIT MODERATE SEVERITY Emergency CORINNA Chau MD (ER) 3 01:00 3 01:38 [facility] EMERGENCY 98823 YARIEL MILES 3 3 EMERGENCY DEPARTMEN SERVICES T VISIT HIGH/URGE NT SEVERITY EMERGENCY 08186 STACK HEIDI STACK HEIDI 3 3 DEPARTMEN T VISIT HIGH/URGE NT SEVERITY EMERGENCY 65112 YARIEL WHITAKER 3 3 EMERGENCY DEPARTMEN SERVICES T VISIT MODERATE SEVERITY EMERGENCY 74069 YARIEL BARROSO DEPT 3 3 EMERGENCY JAM VISIT SERVICES HIGH SEVERITY& THREAT FUNCJ EMERGENCY 18326 CAREY PATINO 3 3 SET SET DEPARTMEN T VISIT HIGH/URGE NT SEVERITY EMERGENCY 92033 CHUY II CHUY II 3 3 THO THO DEPARTMEN T VISIT MODERATE SEVERITY EMERGENCY 62714 RAMÓN 3 3 [facility] DEPARTMEN INC T VISIT LIMITED/M INOR PROB HOSPITAL RAMÓN - 3 3 [facility] OUTPATIEN INC T EMERGENCY 57905 DON MATTHEW 3 3 [facility] CON[facility]IS DEPARTMEN T VISIT HIGH/URGE NT SEVERITY EMERGENCY 56208 YARIEL COTE DEPT 3 3 EMERGENCY III KENYON VISIT SERVICES HIGH SEVERITY& THREAT FUNCJ EMERGENCY 41771 ABNER MAT ABNER MAT 2 2 DEPARTMEN T VISIT MODERATE SEVERITY EMERGENCY 11200 YARIEL GUSTAFSON 2 2 EMERGENCY ADT JONATHAN DEPARTMEN SERVICES T VISIT MODERATE SEVERITY OFFICE 44589 KATT YOU CONSULTAT 2 2 ION NEW/ESTAB PATIENT 60 MIN EMERGENCY 94760 FOX LISA FOX LISA 2 2 DEPARTMEN T VISIT MODERATE SEVERITY OFFICE 41225 MIGDALIA ADRIANAMOHSEN OUTPATIEN 2 2 CLEMENTINE CLEMENTINE T VISIT 15 MINUTES EMERGENCY 99041 PUND CHR PUND CHR 2 2 DEPARTMEN T VISIT MODERATE SEVERITY EMERGENCY 05868 CHUY II CHUY II 2 2 THO THO DEPARTMEN T VISIT MODERATE SEVERITY EMERGENCY 44458 OSWALDO CHACON 2 2 JULIO JULIO DEPARTMEN T VISIT MODERATE SEVERITY HOSPITAL RAMÓN - 2 2 [facility] OUTPATIEN INC T EMERGENCY 05355 RAMÓN 2 2 [facility] DEPARTMEN INC T VISIT LOW/MODER SEVERITY EMERGENCY 78138 DON MATTHEW 2 2 CONCHIS CONCHIS DEPARTMEN T VISIT MODERATE SEVERITY EMERGENCY 73661 CHUY II CHUY II 2 2 THO THO DEPARTMEN T VISIT HIGH/URGE NT SEVERITY OFFICE 80727 OZ JR OZ JR OUTPATIEN 2 2 KENYON KENYON T NEW 30 MINUTES OFFICE 31807 MIGDALIA NEGRON OUTPATIEN 2 2 CLEMENTINE CLEMENTINE T VISIT 15 MINUTES EMERGENCY 41701 ROCAEL CTOE DEPT 2 2 III KENYON III KENYON VISIT HIGH SEVERITY& THREAT [facility] RAMÓN - 2 2 [facility] OUTPATIEN INC T EMERGENCY 34007 RAMÓN 2 2 [facility] DEPARTMEN INC T VISIT MODERATE SEVERITY EMERGENCY 03870 DEJUAN ZAIDI 2 2 [facility] DEPARTMEN T VISIT MODERATE SEVERITY OFFICE 80746 NAVARRO PAD NAVARRO PAD OUTPATIEN 2 2 T VISIT 15 MINUTES EMERGENCY 23951 CHUY T CHUY T 2 2 DEPARTMEN T VISIT MODERATE SEVERITY EMERGENCY 58196 RECHTIN RECHTIN 2 2 [employer] DEPARTMEN T VISIT HIGH/URGE NT SEVERITY OFFICE 77434 LI LI OUTPATIEN 2 2 KIEL KIEL T VISIT 15 MINUTES EMERGENCY 48751 CELLAROSI CELLAROSI 2 2 - YORBA - YORBA DEPARTMEN PAT PAT T VISIT HIGH/URGE NT SEVERITY OFFICE 78167 NAVARRO PAD NAV[facility] PAD OUTPATIEN 2 2 T VISIT 15 MINUTES EMERGENCY 75286 YARIEL STEPHENSON DOU 2 2 EMERGENCY DEPARTMEN SERVICES T VISIT HIGH/URGE NT SEVERITY OFFICE 92965 MARY ODESSA MARY ODESSA OUTPATIEN 2 2 T VISIT 15 MINUTES EMERGENCY 16002 CHUY T CHUY T 2 2 DEPARTMEN T VISIT MODERATE SEVERITY OFFICE 71031 LI LI OUTPATIEN 2 2 KIEL KIEL T VISIT 15 MINUTES EMERGENCY 71452 [place] 2 2 [facility] T VISIT MODERATE SEVERITY EMERGENCY 71621 DOWNS PAT DOWNS PAT 2 2 DEPARTMEN T VISIT HIGH/URGE NT SEVERITY [facility] [place] [facility] 2 2 [facility] T EMERGENCY 78112 GRACIE KIRKLAND 2 2 MEDICAL TEREZA DEPARTMEN SERV T VISIT FOUNDATIO MODERATE SEVERITY EMERGENCY 80618 YARIEL ROSI 2 2 EMERGENCY PAT DEPARTMEN SERVICES T VISIT MODERATE SEVERITY OFFICE 78649 GUILLERMO LI CONSULTAT 2 2 KIEL KIEL ION NEW/ESTAB PATIENT 40 MIN OFFICE 63253 MOIRA MOIRA OUTPATIEN 2 2 MITZI MITZI T NEW 20 MINUTES OFFICE 88689 POWELL POWELL OUTPATIEN 2 2 OSBALDO OSBALDO T VISIT 15 MINUTES EMERGENCY 50720 YARIEL MERINOEY 2 2 EMERGENCY CONCHIS DEPARTMEN SERVICES T VISIT HIGH/URGE NT SEVERITY EMERGENCY 44544 [facility]ÓN 2 2 [facility] DEPARTMEN INC T VISIT LOW/MODER SEVERITY HOSPITAL [facility] - 2 2 [facility] OUTPATI[facility] INC T EMERGENCY 31510 CHUY T CHUY T 2 2 DEPARTMEN T VISIT MODERATE SEVERITY [facility] [place] - 2 2 [facility] T OFFICE 64978 POWELL POWELL OUTPATIEN 2 2 OSBALDO OSBALDO T VISIT 15 MINUTES EMERGENCY 21738 GRACIE ROMAN 2 2 MEDICAL SENIOR SOFTWARE QA ENGINEER DEPARTMEN SERV T VISIT FOUNDATIO HIGH/URGE NT SEVERITY OFFICE 44106 AICHA HOLCOMB MITZI OUTPATIEN 2 2 T VISIT 15 MINUTES OFFICE 81634 MARY ODESSA MARY ODESSA OUTPATIEN 2 2 T NEW 20 MINUTES OFFICE 27230 MIGDALIA NEGRON OUTPATIEN 2 2 CLEMENTINE CLEMENTINE T VISIT 15 MINUTES EMERGENCY 45946 OSWALDO CHACON 2 2 JULIO JULIO DEPARTMEN T VISIT MODERATE SEVERITY EMERGENCY 64512 YARIEL MATTHEW 2 2 EMERGENCY CONCHIS DEPARTMEN SERVICES T VISIT HIGH/URGE NT SEVERITY EMERGENCY 11641 [facility]ÓN 2 2 [facility] DEPARTMEN INC T VISIT LOW/MODER SEVERITY HOSPITAL RAM[facility] - 2 2 [facility] OUTPATIEN INC T EMERGENCY 39484 YARIEL TIDWELL 2 2 EMERGENCY CAR DEPARTMEN SERVICES T VISIT LIMITED/M INOR PROB EMERGENCY 58077 VERONICA MARTIN 2 2 [facility] DEPARTMEN T VISIT HIGH/URGE NT SEVERITY [facility] 33549 [facility] VIS[facility]UTES HOSPITAL [facility] - 2 2 [facility] OUTPATIEN INC T EMERGENCY 01497 YARIEL MATTHEW 2 2 EMERGENCY CONCHIS DEPARTMEN SERVICES T VISIT HIGH/URGE NT SEVERITY EMERGENCY 12636 RAMÓN 2 2 [facility] DEPARTMEN INC T VISIT LOW/MODER SEVERITY EMERGENCY 54315 DEJUAN ZAIDI 2 2 [facility]AR GAR DEPARTMEN T VISIT MODERATE SEVERITY EMERGENCY 00977 YARIEL TIDWELL 2 2 EMERGENCY CAR DEPARTMEN SERVICES T VISIT MODERATE SEVERITY OFFICE 33322 KENRICKE KENRICKE OUTPATIEN 1 1 ABD ABD T VISIT 15 MINUTES EMERGENCY 42394 OSWALDO CHACON 1 1 JULIO JULIO DEPARTMEN T VISIT MODERATE SEVERITY EMERGENCY 53331 YARIEL JOEL 1 1 EMERGENCY CONCHIS DEPARTMEN SERVICES T VISIT MODERATE SEVERITY HOSPITAL [facility] - 1 1 [facility] [place] - [facility] 1 [facility] T EMER[facility] 96395 MOLINA MITZI MOLINA MITZI 1 1 DEPARTMEN T VISIT MODERATE SEVERITY OFFICE 47022 [facility] PAD NAVARRO PAD OUTPATIEN 1 1 T NEW 20 MINUTES EMERGENCY 84193 OSWALDO CHACON 1 1 JULIO JULIO DEPARTMEN T VISIT HIGH/URGE NT SEVERITY HOSPITAL [facility] - 1 1 [facility] OUTPATI[facility] INC T EMERGENCY 41222 RAMÓN 1 1 [facility] DEPARTMEN INC T VISIT LOW/MODER SEVERITY EMERGENCY 08550 DON DON 1 1 [facility] DEPARTMEN T VISIT HIGH/URGE NT SEVERITY OFFICE 22256 ESCALANTE JULIO ESCALANTE JULIO OUTPATIEN 1 1 T VISIT 15 MINUTES EMERGENCY 78245 ACS TEODORO 1 1 PRIMARY FRITZ DEPARTMEN CARE T VISIT PHYSICANS MODERATE M SEVERITY EMERGENCY 68432 YARIEL DOWNING 1 1 EMERGENCY - YORBA DEPARTMEN SERVICES PAT T VISIT MODERATE SEVERITY EMERGENCY 82747 GRACIE PATINO 1 1 MEDICAL SET DEPARTMEN SERV T VISIT FOUNDATIO MODERATE SEVERITY HOSPITAL UNIVERSIT - 1 1 Y [facility] T OFFICE 65256 ESCALANTE JULIO ESCALANTE JULIO OUTPATIEN 1 1 T VISIT 15 MINUTES EMERGENCY 19728 YARIEL PACE 1 1 EMERGENCY RYA DEPARTMEN SERVICES T VISIT MODERATE SEVERITY HOSPITAL UNIVERSIT - 1 1 Y [facility] HOSPITAL T EMERGENCY 64070 ACS 1 1 [facility] DEPARTMEN CARE T VISIT PHYSICANS HIGH/URGE M NT SEVERITY OFFICE 25064 VENGUSWAM VENGUSWAM OUTPATIEN 1 1 Y CATARINA Y CATARINA T VISIT 15 MINUTES OFFICE 74732 ESCALANTE JULIO ESCALANTE JULIO OUTPATIEN 1 1 T NEW 30 MINUTES EMERGENCY 76681 GRACIE GOINS JESSICA 1 1 MEDICAL DEPARTMEN SERV T VISIT FOUNDATIO MODERATE SEVERITY EMERGENCY 99775 [facility]MODER SE[facility]ITY [facility] 71487 GRACIE MONIQUE 1 1 MEDICAL SON DEPARTMEN SERV T VISIT FOUNDATIO MODERATE SEVERITY EMERGENCY 33277 YARIEL FERNANDEZ 1 1 EMERGENCY THERESA DEPARTMEN SERVICES T VISIT HIGH/URGE NT SEVERITY HOSPITAL [facility] - 1 1 [facility] 42730 GRACIE DIO JR 1 1 MEDICAL [place] DEPARTMEN SERV T VISIT FOUNDATIO MODERATE SEVERITY EMERGENCY 41317 UNIVERSIT 1 1 Y [facility] T VISIT LOW/MODER SEVERITY HOSPITAL RAMÓN - 1 1 [facility] OUTPATIEN INC T EMERGENCY 91976 YARIEL GONZALEZ 1 1 EMERGENCY DEPARTMEN SERVICES T VISIT HIGH/URGE NT SEVERITY EMERGENCY 35145 RAMÓN 1 1 MEM [facility] DEPARTMEN INC T VISIT LOW/MODER SEVERITY EMERGENCY 40458 JOESPH VELOZ GAYLE 1 1 [facility] T VISIT PHYS MODERATE SEVERITY EMERGENCY 15570 YARIEL SHEETS 1 1 EMERGENCY [facility] DEPARTMEN SERVICES T VISIT MODERATE SEVERITY HOSPITAL RAMÓN - 1 1 [facility] OUTPATIEN INC T EMERGENCY 36901 RAMÓN 1 1 [facility] DEPARTMEN INC T VISIT LIMITED/M INOR PROB EMERGENCY 69899 YARIEL MATTHEW 1 1 EMERGENCY [place] DEPARTMEN SERVICES T VISIT HIGH/URGE NT SEVERITY EMERGENCY 73771 YARIEL DOWNING 1 1 EMERGENCY - YORBA DEPARTMEN SERVICES PAT T VISIT HIGH/URGE NT SEVERITY EMERGENCY 85796 [facility] 1 1 [facility]IS[facility] LOW/MODER SEVERITY HOSPITAL [facility] - 1 1 N OUTPATIEN COMMUNITY [facility] 1 1 Y OUTPATI HOSPITAL T EMERGENCY 04813 GRACIE MARC 1 1 [facility]ICAL [facility]ISIT FOUNDATIO MODERATE SEVERITY EMERGENCY 80653 [facility] 1 1 JEFFY DEPARTMEN EMERGENCY T VISIT PHYS MODERATE SEVERITY HOSPITAL [facility] - 1 HOSPITAL OUTPATIEN T EMERGENCY 69045 [facility] 1 1 [facility] T VISIT LOW/MODER SEVERITY EMERGENCY 19545 YARIEL GALO 1 1 EMERGENCY [facility] SERVICES T VISIT MODERATE SEVERITY EMERGENCY 98735 [facility] 1 1 N [facility] COMMUNITY T VISIT [facility] MODERATE SEVERITY HOSPITAL [facility] - 1 1 N OUTPATIEN COMMUNITY T [facility] EMERGENCY 27565 YARIEL ZAIDI DEPT 1 1 EMERGENCY GAR VISIT SERVICES HIGH SEVERITY& THREAT [facility] - 1 N OUTPATIEN COMMUNITY T HOSPITA OFFICE 03647 VENGUSWAM VENGUSWAM OUTPATIEN 1 1 Y CATARINA Y CATARINA T VISIT 25 MINUTES OFFICE 54693 [facility] 1 1 N URGENT ABD T VISIT CARE 15 MINUTES OFFICE 45845 VENGUSWAM VENGUSWAM OUTPATIEN 1 1 Y CATARINA Y CATARINA T NEW 30 MINUTES EMERGENCY 61484 YARIEL GALO 1 1 EMERGENCY [facility] SERVICES T VISIT HIGH/URGE NT SEVERITY OFFICE 43201 [facility] KENRICKE [facility] N URGENT ABD T VISIT CARE 15 MINUTES HOSPITAL [place] - 1 1 N [facility]EN [facility] OFF[facility] 64974 [facility] DANNIELLE OUTPATIEN 1 1 N URGENT ABD T VISIT CARE 15 MINUTES OFFICE 15104 [facility] DANNIELLE OUTPATIEN 1 1 N URGENT ABD T VISIT CARE 15 MINUTES HOSPITAL RAMÓN - 1 1 [facility] OUTPATIEN INC T EMERGENCY 70270 RAMÓN 1 1 [facility] DEPARTMEN INC T VISIT LOW/MODER SEVERITY EMERGENCY 30487 YARIEL GONZALEZ 1 1 EMERGENCY DEPARTMEN SERVICES T VISIT HIGH/URGE NT SEVERITY EMERGENCY 48230 YARIEL GALO 1 1 EMERGENCY CHAU DEPARTMEN SERVICES T VISIT MODERATE SEVERITY OFFICE 57807 GRACIE GARRETT Timur [facility] MEDICAL T VISIT SERV 10 FOUNDATIO MINUTES OFFICE 73106 [facility] DANNIELLE [facility] 1 N URGENT ABD T VISIT CARE 15 MINUTES OFFICE 62768 [facility] DANNIELLE [facility] 1 1 N URGENT ABD T VISIT CARE 15 MINUTES OFFICE 31979 [facility] DANNIELLE OUTPATIEN 0 0 N URGENT ABD T VISIT CARE 15 MINUTES OFFICE 31179 [facility] DANNIELLE OUTPATIEN 0 0 N URGENT ABD T VISIT CARE [address]ES [address] [facility] CONSULTAT 0 0 ANNITA GALINDO CARDIOLOG NEW/ESTAB Y CLINIC PATIENT 30 MIN EMERGENCY 82742 YARIEL GALO 0 0 EMERGENCY CHAU DEPARTMEN SERVICES T VISIT MODERATE SEVERITY HOSPITAL [facility] 0 [facility] 50282 [facility] DANNIELLE OUTPATIEN 0 0 N URGENT ABD T VISIT CARE 15 MINUTES HOSPITAL [facility] - 0 0 N OUTPATIEN COMM[facility]ITY [facility] - 0 0 N OUTPATIEN COMMUNITY T HOSPITA OFFICE 95620 [facility] DANNIELLE OUTPATIEN 0 0 N URGENT ABD T VISIT CARE 15 MINUTES EMERGENCY 77890 YARIEL COTE 0 0 EMERGENCY III [place] DEPARTMEN SERVICES T VISIT HIGH/URGE NT SEVERITY HOSPITAL RAMÓN - 0 0 [facility] OUTPATIEN INC T EMERGENCY 42469 RAMÓN 0 0 [facility] DEPARTMEN INC T VISIT LOW/MODER SEVERITY OFFICE 91746 [facility] GARC[facility] TRA OUTPATIEN 0 0 [place] T VISIT ORTHOPAED 15 [facility] MINUTES OFFICE 72238 [facility] DANNIELLE OUTPATIEN 0 0 N URGENT ABD T NEW 30 CARE MINUTES OFFICE 82044 GARCÍA TRA GARCÍA TRA OUTPATIEN 0 0 T VISIT 10 MINUTES OFFICE 88182 [facility] G[facility] TRA OUTPATIEN 0 0 [place] T VISIT ORTHOPAED 15 [facility] MINUTES EMERGENCY 14231 [facility] 0 0 N [facility] T VISIT [facility] MODERATE SEVERITY HOSPITAL [facility] - 0 0 N OUTPATIEN COMMUNITY T HOSPITA EMERGENCY 08005 YARIEL VERA T 0 0 EMERGENCY DEPARTMEN SERVICES T VISIT MODERATE SEVERITY EMERGENCY 28628 YARIEL ROBERTO DEPT 0 0 EMERGENCY DON VISIT SERVICES HIGH SEVERITY& THREAT FUNCJ EMERGENCY 93439 RAMÓN 0 0 MEM HOS[facility] DEPARTMEN INC T VISIT LOW/MODER SEVERITY HOSPITAL RAMÓN - 0 0 [facility] OUTPATIEN INC T EMERGENCY 64999 YARIEL MATTHEW, 0 0 EMERGENCY DANIELA S DEPARTMEN SERVICES T VISIT HIGH/URGE ASSOCIATE NT S SEVERITY EMERGENCY 00754 GRACIE MOHAN 0 0 MEDICAL GAIL DEPARTMEN SERV T VISIT FOUNDATIO MODERATE SEVERITY EMERGENCY 98914 UNIVERSIT 0 0 Y [facility] T VISIT LOW/MODER SEVERITY HOSPITAL UNIVERSIT - 0 0 [facility] RAMÓN - 0 0 MEM HOSP OUTPATIEN INC T EMERGENCY 39416 RAMÓN 0 0 MEM [facility]OS[facility] DEPARTMEN INC T VISIT LOW/MODER SEVERITY EMERGENCY 99497 YARIEL MATTHEW, DEPT 0 0 EMERGENCY DANIELA S VISIT SERVICES HIGH SEVERITY& ASSOCIATE THREAT S FUNCJ EMERGENCY 25022 RAMÓN 0 0 MEM HOSP DEPARTMEN INC T VISIT LOW/MODER SEVERITY HOSPITAL RAMÓN - 0 0 [facility] OUTPATIEN INC T EMERGENCY 60568 YARIEL GIL 0 0 EMERGENCY [facility] DEPARTMEN SERVICES T VISIT MODERATE SEVERITY EMERGENCY 43716 RAMÓN 0 0 [facility]OS[facility] DEPARTMEN INC T VISIT LIMITED/M INOR PROB HOSPITAL RAMÓN - 0 0 [facility] OUTPATIEN INC T EMERGENCY 95580 YARIEL MATTHEW, 0 0 EMERGENCY DANIELA S DEPARTMEN SERVICES T VISIT HIGH/URGE ASSOCIATE NT S SEVERITY EMERGENCY 15886 YARIEL WATT 0 0 EMERGENCY DEPARTMEN SERVICES T VISIT HIGH/URGE NT SEVERITY EMERGENCY 55197 [place] 0 0 [facility] T VISIT MODERATE SEVERITY HOSPITAL [place] - 0 0 [facility] T EMERGENCY 24794 YARIEL CHARLES, 0 0 EMERGENCY ANGELY J DEPARTMEN SERVICES T VISIT MODERATE ASSOCIATE SEVERITY S EMERGENCY 86002 YARIEL BARROSO, 0 0 EMERGENCY VALERIE M DEPARTMEN SERVICES T VISIT HIGH/URGE ASSOCIATE NT S SEVERITY EMERGENCY 93233 [place] 0 0 [facility] T VISIT MODERATE SEVERITY HOSPITAL [place] - 0 0 [facility] T OFFICE 81786 MIGDALIA, MIGDALIA, [facility] 0 0 BOY W BOY W T NEW 30 MINUTES EMERGENCY 86345 [facility] SUDEEP, 0 0 JEFFY Mills DEPARTMEN EMERGENCY T VISIT PHYS INC MODERATE SEVERITY EMERGENCY 84864 [facility] SUDEEP, 0 0 JEFFY Mills DEPARTMEN EMERGENCY T VISIT PHYS INC MODERATE SEVERITY EMERGENCY 85955 [facility] JEFFY CARL Quinn DEPARTMEN EMERGENCY T VISIT SERV PC HIGH/URGE NT SEVERITY HOSPITAL [facility] - 0 0 [facility] 53742 [facility] 0 0 HOSPITAL DEPARTMEN T VISIT MODERATE SEVERITY [facility]OSPITAL [place] - 0 0 [facility] T EMERGENCY 64627 [place] 0 0 [facility] T VISIT MODERATE SEVERITY EMERGENCY 12473 [facility], 0 0 JEFFY HUERTA DO DEPARTMEN EMERGENCY NAREN O T VISIT PHYS INC MODERATE SEVERITY EMERGENCY 34449 [facility] 0 0 BAYLEE BARDALES DEPARTMEN EMERGENCY M T VISIT PHYS INC MODERATE SEVERITY HOSPITAL [place] - 0 0 [facility] T EMERGENCY 92090 [place] 0 0 [facility] T VISIT MODERATE SEVERITY EMERGENCY 21262 UNIVERSIT 0 0 Y [facility] T VISIT LIMITED/M INOR PROB EMERGENCY 43273 [place] ENE[place], 0 0 MEDICAL YOSELIN C DEPARTMEN SERV T VISIT FOUNDATIO LOW/MODER SEVERITY HOSPITAL UNIVERSIT - 0 0 Y [facility]OSPITAL T EMERGENCY 37221 YARIEL BARROSO, 0 0 EMERGENCY VALERIE M DEPARTMEN SERVICES T VISIT MODERATE ASSOCIATE SEVERITY S EMERGENCY 65719 [facility] CHUY, T 0 0 JEFFY DEPARTMEN EMERGENCY T VISIT PHYS INC MODERATE SEVERITY EMERGENCY 35523 [facility], T 0 0 JEFFY DEPARTMEN EMERGENCY T VISIT PHYS INC MODERATE SEVERITY EMERGENCY 39915 [facility] CELLAROSI 0 0 JEFFY - YORBA, DEPARTMEN EMERGENCY BLANCO T VISIT PHYS INC M MODERATE SEVERITY HOSPITAL [facility] - 0 0 [facility] T EMERGENCY 42971 GRACIE MOHAN, 0 0 MEDICAL MIKE C DEPARTMEN SERV T VISIT FOUNDATIO MODERATE SEVERITY EMERGENCY 59471 [facility] CALDERON, 0 0 JEFFY MERVIN M DEPARTMEN EMERGENCY T VISIT PHYS INC MODERATE SEVERITY HOSPITAL [place] - 0 0 [facility] T EMERGENCY 49916 [place] 0 0 [facility] T VISIT LOW/MODER SEVERITY EMERGENCY 18984 [place] 0 0 [facility] T VISIT LOW/MODER SEVERITY EMERGENCY 38156 GRACIE ANISA 0 0 MEDICAL I, MORELIA DEPARTMEN SERV A T VISIT FOUNDATIO MODERATE SEVERITY HOSPITAL [place] - 0 0 [facility] T EMERGENCY 23592 [place] 9 9 [facility] T VISIT LOW/MODER SEVERITY EMERGENCY 56345 [facility], T 9 9 JEFFY DEPARTMEN EMERGENCY T VISIT PHYS INC MODERATE SEVERITY HOSPITAL [place] - 9 9 [facility] T EMERGENCY 98357 [facility] [place], 9 9 JEFFY NAREN Maynard DEPARTMEN EMERGENCY T VISIT PHYS INC MODERATE SEVERITY EMERGENCY 03067 [facility] SUDEEP, 9 9 JEFFY Mills DEPARTMEN EMERGENCY T VISIT PHYS INC MODERATE SEVERITY EMERGENCY 10551 [facility], 9 9 JEFFY HIEU DEPARTMEN EMERGENCY T VISIT PHYS INC HIGH/URGE NT SEVERITY EMERGENCY 72303 [facility] 9 9 [facility]/MODER SEVERITY HOSPITAL [facility] - 9 9 [facility]ENCY 32019 [facility] T 9 9 JEFFY [facility] EMERGENCY T VISIT PHYS INC MODERATE SEVERITY EMERGENCY 15013 [facility], 9 9 JEFFY SMITH [facility] EMERGENCY A T VISIT PHYS INC MODERATE SEVERITY HOSPITAL [place] - 9 9 [facility] T EMERGENCY 05694 [facility], 9 9 JEFFY SMITH [facility] EMERGENCY A T VISIT PHYS INC MODERATE SEVERITY [facility]OSPITAL [facility] - 9 9 [facility] T EMERGENCY 74668 [facility] 9 9 [facility] T VISIT LOW/MODER SEVERITY OFFICE 49473 [facility] 9 9 , QUITA DEVLIN ION NEW/ESTAB PATIENT 40 MIN EMERGENCY 58605 [facility] 9 9 JEFFY , [facility] EMERGENCY SANJOYDEB T VISIT PHYS INC MODERATE SEVERITY EMERGENCY 02414 [facility] 9 [facility]/MODER SEVERITY HOSPITAL [facility] - 9 9 [facility] EMERGENC[facility] 92007 [place] 9 9 MEM HOSP DEPARTMEN INC T VISIT LOW/MODER SEVERITY EMERGENCY 38738 YARIEL MATTHEW, 9 9 EMERGENCY [facility] SERVICES T VISIT MODERATE ASSOCIATE SEVERITY [facility] [place] - 9 9 [facility] OUTPATIEN INC T EMERGENCY 40508 [facility], 9 9 JEFFY PRIETO DEPARTMEN EMERGENCY T VISIT PHYS INC MODERATE SEVERITY EMERGENCY 41751 [facility], 9 9 JEFFY Mills DEPARTMEN EMERGENCY T VISIT PHYS INC MODERATE SEVERITY EMERGENCY 19996 RAMÓN 9 9 MEM HOSP DEPARTMEN INC T VISIT LOW/MODER SEVERITY HOSPITAL RAMÓN - 9 9 [facility] OUTPATIEN INC T EMERGENCY 19541 YARIEL MATTHEW, 9 9 EMERGENCY DANIELA S DEPARTMEN SERVICES T VISIT MODERATE ASSOCIATE SEVERITY S HOSPITAL [facility] - 9 9 HOSPITAL OUTPATIEN T EMERGENCY 65242 [facility], 9 9 JEFFY Kai Martinez DEPARTMEN EMERGENCY T VISIT PHYS INC MODERATE SEVERITY EMERGENCY 81460 [facility] 9 9 HOSPITAL DEPARTMEN T VISIT LOW/MODER SEVERITY HOSPITAL [facility] - 9 9 HOSPITAL OUTPATIEN T EMERGENCY 56227 [facility] 9 9 HOSPITAL DEPARTMEN T VISIT LOW/MODER SEVERITY EMERGENCY 21347 [facility], 9 9 JEFFY Freeman DEPARTMEN EMERGENCY T VISIT PHYS INC MODERATE SEVERITY EMERGENCY 34155 [facility], 9 9 JEFFY SARAH DEPARTMEN EMERGENCY A T VISIT PHYS INC MODERATE SEVERITY EMERGENCY 40485 YARIEL MATTHEW, 9 9 EMERGENCY DANIELA S DEPARTMEN SERVICES T VISIT MODERATE ASSOCIATE SEVERITY S HOSPITAL RAMÓN - 9 9 [facility] OUTPATIEN INC T EMERGENCY 69484 RAMÓN 9 9 [facility] DEPARTMEN INC T VISIT LOW/MODER SEVERITY HOSPITAL [place] - 9 9 [facility] T EMERGENCY 83399 [facility], 9 9 JEFFY Mills DEPARTMEN EMERGENCY T VISIT PHYS INC MODERATE SEVERITY HOSPITAL RAMÓN - 9 9 [facility] OUTPATIEN INC T EMERGENCY 14751 RAMÓN 9 9 MEM H[facility] DEPARTMEN INC T VISIT LOW/MODER SEVERITY EMERGENCY 37926 YARIEL MATTHEW, 9 9 EMERGENCY [facility] SERVICES T VISIT HIGH/URGE ASSOCIATE NT S SEVERITY EMERGENCY 35504 YARIEL DOWNING 9 9 EMERGENCY - YORBA, [facility] SERVICES BLANCO T VISIT M MODERATE ASSOCIATE SEVERITY S OFFICE 18153 RAMON NAVARRO OUTPATIEN 9 9 LYNDSAY G LYNDSAY G T VISIT 15 MINUTES EMERGENCY 54393 JOESPH VERA, T 9 9 JEFFY [facility] EMERGENCY T VISIT PHYS INC MODERATE SEVERITY HOSPITAL [facility] - 9 9 [facility] T EMERGENCY 53379 [facility] 9 9 [facility] T VISIT LOW/MODER SEVERITY [facility] 60260 [facility] 9 JEFFY [facility] EMERGENCY T VISIT PHYS INC MODERATE SEVERITY EMERGENCY 14726 RAMÓN 9 9 MEM HOSP DEPARTMEN INC T VISIT LOW/MODER SEVERITY HOSPITAL RAMÓN - 9 9 [facility] OUTPATIEN INC T EMERGENCY 71746 YARIEL MATTHEW, 9 9 EMERGENCY [facility] SERVICES T VISIT MODERATE ASSOCIATE SEVERITY S EMERGENCY 91343 JOESPH VERA T 9 9 JEFFY [facility] EMERGENCY T VISIT PHYS INC MODERATE SEVERITY HOSPITAL RAMÓN - 9 9 MEM HOSP OUTPATIEN [facility] T EMERGENCY 23935 RAMÓN 9 9 [facility] DEPARTMEN INC T VISIT LOW/MODER SEVERITY EMERGENCY 77683 [facility], T 9 9 [facility] EMERGENCY T VISIT PHYS INC MODERATE SEVERITY EMERGENCY 11061 YARIEL MUÑOZ, DEPT 9 9 EMERGENCY [facility]DS VISIT SERVICES HIGH SEVERITY& ASSOCIATE THREAT S [facility] RAMÓN - 9 9 MEM HOSP OUTPATIEN INC T EMERGENCY 76825 RAMÓN 9 9 [facility] DEPARTMEN INC T VISIT MODERATE SEVERITY EMERGENCY 41136 UNIVERSIT 9 9 [facility] HOSPITAL T VISIT LIMITED/M INOR PROB EMERGENCY 75057 [facility], 9 9 JEFFY VALERIE [facility] T VISIT PHYS INC MODERATE SEVERITY HOSPITAL [facility] - 9 9 [facility] T EMERGENCY 33941 [facility] 9 9 [facility] T VISIT LOW/MODER SEVERITY OFFICE 09126 [facility] 9 9 , QUITA DEVLIN ION NEW/ESTAB PATIENT [address] [facility], 9 9 JEFFY MERVIN [facility] EMERGENCY T VISIT PHYS INC MODERATE SEVERITY [facility] 9 [facility] T EMERGENCY 46479 [facility] 9 9 [facility] T VISIT LIMITED/M INOR PROB [facility]OS[facility]ITAL [facility] 9 9 [facility] T EMERGENCY 96829 [facility] 9 9 [facility] T VISIT MODERATE SEVERITY EMERGENCY 52661 [facility], 9 9 JEFFY Mckeon [facility] EMERGENCY T VISIT PHYS [facility] LOW/MODER SEVERITY HOSPITAL RAMÓN - 9 9 [facility] T EMERGENCY 48084 YARIEL RICHARDSON, 9 9 EMERGENCY VALERIE P DEPARTMEN SERVICES T VISIT MODERATE ASSOCIATE SEVERITY S EMERGENCY 49442 YARIEL RICHARDSON, 9 9 EMERGENCY VALERIE P DEPARTMEN SERVICES T VISIT MODERATE ASSOCIATE SEVERITY S EMERGENCY 74328 RAMÓN 9 9 [facility] DEPARTMEN INC T VISIT LIMITED/M INOR PROB HOSPITAL RAMÓN - 9 9 [facility] OUTPATIEN INC T EMERGENCY 80798 [facility] 9 9 [facility] T VISIT LIMITED/M INOR PROB EMERGENCY 90682 [facility] 9 9 JEFFY Peterson ANNITA DEPARTMEN EMERGENCY T VISIT PHYS INC MODERATE SEVERITY HOSPITAL [facility] - 9 9 [facility] 99960 [facility], 9 9 JEFFY Mills DEPARTMEN EMERGENCY T VISIT PHYS INC MODERATE SEVERITY EMERGENCY 62911 GRACIE SOLORIO, 9 9 MEDICAL MERVIN Martinez [facility] T VISIT FOUNDATIO MODERATE SEVERITY HOSPITAL [facility] - 9 9 [facility] T EMERGENCY 03681 UN[facility] 9 9 [facility] T VISIT LIMITED/M INOR PROB [facility] 9 [facility] T EMERGENCY 00088 [facility] 9 9 [facility] T VISIT LOW/MODER SEVERITY EMERGENCY 45968 [facility], 9 9 [facility] PHYS INC MODERATE SEVERITY EMERGENCY 55306 [facility], 9 9 JEFFY Hdz [facility] T VISIT PHYS INC MODERATE SEVERITY EMERGENCY 61699 [facility] 9 9 [facility] T VISIT MODERATE SEVERITY HOSPITAL [facility] - 9 9 [facility] H[facility]PITAL UNIVERSIT [facility] 9 9 [facility] T OFFICE 25937 RAMON NAVARRO, [facility] 9 9 LYNDSAY G LYNDSAY G T VISIT 15 MINUTES HOSPITAL UNIVERSIT - 9 9 [facility] T EMERGENCY 99327 GRACIE SOLORIO, 9 9 MEDICAL MERVIN Martinez [facility] T VISIT FOUNDATIO HIGH/URGE NT SEVERITY EMERGENCY 39811 [facility] 8 8 JEFFY [facility] T VISIT PHYS INC MODERATE SEVERITY HOSPITAL [facility] - 8 8 N [facility] OFFICE 62084 NAVARRO, NAVARRO, CONSULTAT 8 8 LYNDSAY G LYNDSAY G ION NEW/ESTAB PATIENT 60 MIN OFFICE 62365 CARDIOLOG DINO, CONSULTAT 8 8 Y EMILIE S ION ASSOCIATE NEW/ESTAB S OF PATIENT [place] 60 MIN HOSPITAL [place] - 8 8 MEM [facility] T [facility]ENC[facility] 97787 [place] 8 8 MEM [facility] T VISIT LOW/MODER SEVERITY EMERGENCY 11102 [facility] 8 8 N [facility] VISIT HOSPITAL HIGH/URGE NT [facility]VERITY [facility] - 8 N [facility] EMERGENCY 14929 [facility] DEPT 8 8 JEFFY Trung CAL[place], VISIT EMERGENCY BLANCO HIGH PHYS INC M SEVERITY& THREAT FUNCJ EMERGENCY 01278 [facility] 8 8 N [facility] VISIT HOSPITAL LOW/MODER SEVERITY EMERGENCY 25368 [facility], 8 8 JEFFY SARAH [facility] EMERGENCY A T VISIT PHYS INC MODERATE SEVERITY HOSPITAL [facility] - 8 8 N [facility]PITAL OFFICE 79582 Timur AMIN CONSULTAT 8 8 MEDICAL D ION SERV NEW/ESTAB FOUNDATIO PATIENT 40 MIN EMERGENCY 76382 [facility], DEPT 8 8 JEFFY SARAH VISIT EMERGENCY A HIGH PHYS INC SEVERITY& THREAT FUNCJ EMERGENCY 20627 GRACIE WELLS 8 8 MEDICAL , C A [facility] SERV T VISIT FOUNDATIO MODERATE SEVERITY HOSPITAL [facility]ERSIT - 8 8 Y [facility] T EMERGENCY 48081 UNIVERSIT 8 8 Y [facility] T VISIT LIMITED/M INOR PROB EMERGENCY 88228 UNIVERSIT 8 8 Y [facility] T VISIT HIGH/URGE NT SEVERITY EMERGENCY 59503 GRACIE LANGE 8 8 MEDICAL I, MORELIA [facility] SERV A T VISIT FOUNDATIO MODERATE SEVERITY HOSPITAL [facility] - 8 8 [facility] 98360 JOESPH HERMOSILLO, DEPT 8 8 JEFFY KIDD VISIT EMERGENCY HIGH PHYS INC SEVERITY& THREAT FUNCJ
--- NOTE | 2017-03-05 03:44 | Emergency Room Report ---
History of Present Illness Time Seen by [id number] Presenting Problem in Triage Pt arrived:Walked Presenting Problem:c/o bilateral knee pain after working on a ju[employer] job. Beenhurting for awhile Onset of symptoms date/time:/ or onset unknown for:MEDICAL HX UNKNOWN Treatment Prior to Arrival: [employer] Provided by: Sepsis Risk Assessment: Temp: 97.6 B/P: 151/100 MAP: 117 Pulse: 84 Resp: 20 Recent fever? N Clinical Suspician of Infection? N Mental Status: 1 - Regular (Normal Baseline) Sepsis Risk:Low Sepsis Risk Have you (or family members/close friends) recently traveled outside the [place]? N If Yes, where/when: Have you had exposure to infectious disease within the past month? N TB? Other? Specify: Source patient, RN notes reviewed, family, old records Exam Limitations no limitations Comment bilat knee pain after juan today - inc with mov and wt bearing Cardiac Chest Pain Chest pain indicative of cardiac No Timing/Duration this evening Severity moderate ALLERGIES Coded Allergies: Penicillins (10/08/16) aspirin (10/08/16) ibuprofen (From MOTRIN) (10/08/16) latex (10/08/16) naproxen (10/08/16) propoxyphene (From DARVOCET-N 100) (10/08/16) Uncoded Allergies: CLEAR TAPE (I-RASH 05/31/12) Home Medications Reported Medications Gabapentin (Gabapentin 600MG) 600 MG PO Q8 #90 Escitalopram Oxalate 10 MG PO PRN NERVES #30 LISINOPRIL (Lisinopril) 20 MG PO DAILY ALBUTEROL (Ventolin Hfa) 1 PUFF IH Q6H6 History Medical History General CAD? No Angina: No PA: No Hypertension? Yes Hyperlipidemia? No CHF? No DVT? No PE? No COPD? No Asthma? Yes Anemia? Yes GERD? Yes Gastric ulcers? No GI Bleed? No Hernia? No Thyroid Problems? No Hypothyroidism? No CVA? Yes Seizures? No Diabetes? No Insulin Dependent: No Insulin Pump: No Home FSBS? No Renal Insuffiency? No End Stage Renal Disease? No UTI? No Stones? No BPH? No GB Disease: No Nephritic Syndrome? No Asplenia? No Hepatitis? No Sickle Cell Disease? No Arthritis? Yes Migraines? No Cataracts? No Glaucoma? No MRSA? Yes HIV? No TB? No Anxiety? No Depression? No Cancer? No More? No Immunization Hx DT/Tetanus 2011 Surgical Hx Previous Surgery?Y RECTAL CYST X2 JAW SURGERY BUTTOCK-CYSTS Dental Surgery UMBILICAL HERNIA REPAIR LEFT TESTICLE REMOVED Family History Family Hx Diabetes Yes Hyperlipidemia Yes Cancer Yes Social History Smoking Hx Smoker: Current Every Day Smoker Tobacco: Yes Type Cigarettes Packs/day < 1 Pack Alcohol Alcohol: No Drugs none Review of Systems All Other Systems Reviewed and Negative Constitutional denies fever Eyes denies drainage ENT denies: ear pain, epistaxis, throat pain. Respiratory denies cough, denies shortness of breath, denies wheezing Cardiovascular denies chest pain, denies syncope Gastrointestinal denies abdominal pain, denies diarrhea, denies vomiting Genitourinary denies: dysuria, frequency, hesitancy, hematuria. Musculoskeletal see HPI, denies back pain, joint pain, denies joint swelling, denies neck pain Skin denies rash Psychiatric/Neurological denies headache, denies seizure Physical Exam Vital Signs Vital Signs Date Time Temp Pulse Resp B/P Pulse O2 O2 Flow FiO2 Ox Delivery Rate 03/05 0304 97.6 84 20 151/100 96 - WBC >12,000 or <4,000 or 10% bands? 2 or more SIRS Criteria Met? B/P:151/100 MAP:117 Creatinine >2.0? UA output<0.5ml/kg/hr for 2 hrs? Platelet count >100,000? Lactate >2.0mmol/1? INR >1.2 or PTT > than 60 sec? Evidence of Organ Dysfunction? Provider documented clinical suspician of infection? N Sepsis Criteria Count: 1 Sepsis Risk: Low Sepsis Risk General Appearance no apparent distress Eye Exam - bilateral eye PERRL, bilateral eye EOMI Ear, Nose, Throat normal ENT inspection Neck supple Respiratory Status No: respiratory distress. 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 No Results/Orders Current Medication Orders Sig/Rico Start time Last Medication Dose Route Stop Time Status Admin Acetaminophen 0 .STK-MED ONE 03/05 316 DC PO Acetaminophen 650 MG ONCE ONE 03/05 315 DC 03/05 PO 03/05 Orders Procedure Date/time Status KNEE-3 VIEWS-RT 03/05 317 Active KNEE-3 VIEWS-LT 03/05 317 Active XRAY/CT/US XRAY/CT/US XRAY knee XR interpretation by reviewed by me Xray Results no fracture seen Departure Departure Time of Disposition 350 Disposition DC Home or Self Care(routine) Clinical Impression Primary Impression: Knee pain, bilateral Qualifiers: Chronicity: acute Qualified Code: M25.561 - Pain in right knee Condition STABLE Referrals CON PEGUERO APRN (Family) Patient Instructions DI for Knee Pain Additional Instructions use meds and see pcp for follow up Discharge Counseling Counseled pt/family regarding diagnosis, test results, medications/RX, follow up needs Prescriptions Current Visit Scripts Prednisone (Prednisone 20MG) 20 MG PO BID #10 TAB ED Critical Care Critical Care No at 0356
--- OUTSIDE RECORDS SUMMARY | 2017-03-05 03:48 | External Medical Summary Rpt | CCD ---
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 ESCALANTE JULIO TIC 1 MANIPLTV TX EXTRASPIN AL 1/> REGION APPL 29021 ESCALANTE JULIO ESCALANTE JULIO MODALITY 1 1/> AREAS ELEC STIMJ UNATTENDE D CHIROPRAC 31240 ESCALANTE JULIO ESCALANTE JULIO TIC 1 MANIPULAT [place] SPINAL 3-4 REGIONS APPL 09416 ESCALANTE JULIO ESCALANTE JULIO MODALITY 1 1/> AREAS TRACTION MECHANICA L APPL 73447 ESCALANTE JULIO ESCALANTE JULIO MODALITY 1 1/> AREAS TRACTION MECHANICA L CHIROPRAC 46563 ESCALANTE JULIO ESCALANTE JULIO TIC 1 MANIPULAT [place] SPINAL 3-4 REGIONS APPL 61943 ESCALANTE JULIO ESCALANTE JULIO MODALITY 1 1/> AREAS ELEC STIMJ UNATTENDE D CHIROPRAC 49092 ESCALANTE JULIO ESCALANTE JULIO TIC 1 MANIPLTV TX EXTRASPIN AL 1/> REGION THERAPEUT 67252 ESCALANTE JULIO ESCALANTE JULIO IC PX 1/> 1 AREAS EACH 15 MIN EXERCISES MANUAL 25989 ESCALANTE JULIO ESCALANTE JULIO THERAPY 1 TQS 1/> REGIONS EACH 15 MINUTES APPLICATI 83079 ESCALANTE JULIO ESCALANTE JULIO ON 1 MODALITY 1/> AREAS HOT/COLD PACKS APPLICATI 86573 ESCALANTE JULIO ESCALANTE JULIO ON 1 MODALITY 1/> AREAS HOT/COLD PACKS MANUAL 23421 ESCALANTE JULIO ESCALANTE JULIO THERAPY 1 TQS 1/> REGIONS EACH 15 MINUTES THERAPEUT 10599 ESCALANTE JULIO ESCALANTE JULIO IC PX 1/> 1 AREAS EACH 15 MIN EXERCISES CHIROPRAC 77279 ESCALANTE JULIO ESCALANTE JULIO TIC 1 MANIPLTV TX EXTRASPIN AL 1/> REGION APPL 69289 ESCALANTE JULIO ESCALANTE JULIO MODALITY 1 1/> AREAS ELEC STIMJ UNATTENDE D CHIROPRAC 63863 ECSALANTE JULIO ESCALANTE JULIO TIC 1 MANIPULAT [place] SPINAL 3-4 REGIONS APPL 46295 ESCALANTE JULIO ESCALANTE JULIO MODALITY 1 1/> AREAS TRACTION MECHANICA L CHIROPRAC 59581 ESCALANTE JULIO ESCALANTE JULIO TIC 1 MANIPULAT [place] SPINAL 3-4 REGIONS APPL 86502 ESCALANTE JULIO ESCALANTE JULIO MODALITY 1 1/> AREAS ELEC STIMJ UNATTENDE D APPL 20376 ESCALANTE JULIO ESCALANTE JULIO MODALITY 1 1/> AREAS TRACTION MECHANICA L CHIROPRAC 16803 ESCALANTE JULIO ESCALANTE JULIO TIC 1 MANIPLTV TX EXTRASPIN AL 1/> REGION APPLICATI 29489 ESCALANTE JULIO ESCALANTE JULIO ON 1 MODALITY 1/> AREAS HOT/COLD PACKS THERAPEUT 07068 ESCALANTE JULIO ESCALANTE JULIO IC PX 1/> 1 AREAS EACH 15 MIN EXERCISES MANUAL 42576 ESCALANTE JULIO ESCALANTE JULIO THERAPY 1 TQS 1/> REGIONS EACH 15 MINUTES MANUAL 86714 ESCALANTE JULIO ESCALANTE JULIO THERAPY 1 TQS 1/> REGIONS EACH 15 MINUTES THERAPEUT 45626 ESCALANTE JULIO ESCALANTE JULIO IC PX 1/> 1 AREAS EACH 15 MIN EXERCISES APPLICATI 67110 ESCALANTE JULIO ESCALANTE JULIO ON 1 MODALITY 1/> AREAS HOT/COLD PACKS CHIROPRAC 35076 ESCALANTE JULIO ESCALANTE JULIO TIC 1 MANIPLTV TX EXTRASPIN AL 1/> REGION APPL 48737 ESCALANTE JULIO ESCALANTE JULIO MODALITY 1 1/> AREAS TRACTION MECHANICA L APPL 14761 ESCALANTE JULIO ESCALANTE JULIO MODALITY 1 1/> AREAS ELEC STIMJ UNATTENDE D CHIROPRAC 57588 ESCALANTE JULIO ESCALANTE JULIO TIC 1 MANIPULAT [place] SPINAL 3-4 REGIONS CHIROPRAC 57116 ESCALANTE JULIO ESCALANTE JULIO TIC 1 MANIPULAT [place] SPINAL 3-4 REGIONS APPL 45713 ESCALANTE JULIO ESCALANTE JULIO MODALITY 1 1/> AREAS ELEC STIMJ UNATTENDE D APPL 95954 ESCALANTE JULIO ESCALANTE JULIO MODALITY 1 1/> AREAS TRACTION MECHANICA L CHIROPRAC 61947 ESCALANTE JULIO ESCALANTE UJLIO TIC 1 MANIPLTV TX EXTRASPIN AL 1/> REGION APPLICATI 38792 ESCALANTE JULIO ESCALANTE JULIO ON 1 MODALITY 1/> AREAS HOT/COLD PACKS THERAPEUT 82512 ESCALANTE JULIO ESCALANTE JULIO IC PX 1/> 1 AREAS EACH 15 MIN EXERCISES MANUAL 99011 ESCALANTE JULIO ESCALANTE JULIO THERAPY 1 TQS 1/> REGIONS EACH 15 MINUTES MANUAL 10754 ESCALANTE JULIO ESCALANTE JULIO THERAPY 1 TQS 1/> REGIONS EACH 15 MINUTES THERAPEUT 47052 ESCALANTE JULIO ESCALANTE JULIO IC PX 1/> 1 AREAS EACH 15 MIN EXERCISES APPLICATI 43273 ESCALANTE JULIO ESCALANTE JULIO ON 1 MODALITY 1/> AREAS HOT/COLD PACKS CHIROPRA 45477 ESCALANTE JULIO ESCALANTE JULIO TIC 1 MANIPLTV TX EXTRASPIN AL 1/> REGION APPL 19417 ESCALANTE JULIO ESCALANTE JULIO MODALITY 1 1/> AREAS TRACTION MECHANICA L APPL 54348 ESCALANTE JULIO ESCALANTE JULIO MODALITY 1 1/> AREAS ELEC STIMJ UNATTENDE D CHIROPRA 28000 ESCALANTE JULIO ESCALANTE JULIO TIC 1 MANIPULAT [place] SPINAL 3-4 REGIONS CHIROPRA 71854 ESCALANTE JULIO ESCALANTE JULIO TIC 1 MANIPULAT [place] SPINAL 3-4 REGIONS APPL 26943 ESCALANTE JULIO ESCALANTE JULIO MODALITY 1 1/> AREAS TRACTION MECHANICA L APPL 40768 ESCALANTE JULIO ESCALANTE JULIO MODALITY 1 1/> AREAS ELEC STIMJ UNATTENDE D CHIROPRA 66760 ESCALANTE JULIO ESCALANTE JULIO TIC 1 MANIPLTV TX EXTRASPIN AL 1/> REGION APPLICATI 73000 ESCALANTE JULIO ESCALANTE JULIO ON 1 MODALITY 1/> AREAS HOT/COLD PACKS THERAPEUT 94587 ESCALANTE JULIO ESCALANTE JULIO IC PX 1/> 1 AREAS EACH 15 MIN EXERCISES MANUAL 70966 ESCALANTE JULIO ESCALANTE JULIO THERAPY 1 TQS 1/> REGIONS EACH 15 MINUTES MANUAL 93591 ESCALANTE JULIO ESCALANTE JULIO THERAPY 1 TQS 1/> REGIONS EACH 15 MINUTES THERAPEUT 49236 ESCALANTE JULIO ESCALANTE JULIO IC PX 1/> 1 AREAS EACH 15 MIN EXERCISES APPLICATI 20152 ESCALANTE JULIO ESCALANTE JULIO ON 1 MODALITY 1/> AREAS HOT/COLD PACKS CHIROPRA 22553 ESCALANTE JULIO ESCALANTE JULIO TIC 1 MANIPLTV TX EXTRASPIN AL 1/> REGION APPL 12888 ESCALANTE JULIO ESCALANTE JULIO MODALITY 1 1/> AREAS ELEC STIMJ UNATTENDE D APPL 74305 ESCALANTE JULIO ESCALANTE JULIO MODALITY 1 1/> AREAS TRACTION MECHANICA L CHIROPRA 63855 ESCALANTE JULIO ESCALANTE JULIO TIC 1 MANIPULAT [place] SPINAL 3-4 REGIONS THERAPEUT 02803 ESCALANTE JULIO ESCALANTE JULIO IC PX 1/> 1 AREAS EACH 15 MIN EXERCISES CHIROPRAC 84672 ESCALANTE JULIO ESCALANTE JULIO TIC 1 MANIPULAT [place] SPINAL 3-4 REGIONS APPL 51840 ESCALANTE JULIO ESCALANTE JULIO MODALITY 1 1/> AREAS TRACTION MECHANICA L CHIROPRA 71240 ESCALANTE JULIO ESCALANTE JULIO TIC 1 MANIPLTV TX EXTRASPIN AL 1/> REGION APPL 51241 ESCALANTE JULIO ESCALANTE JULIO MODALITY 1 1/> AREAS ELEC STIMJ UNATTENDE D APPLICATI 07132 ESCALANTE JULIO ESCALANTE JULIO ON 1 MODALITY 1/> AREAS HOT/COLD PACKS MANUAL 46539 ESCALANTE JULIO ESCALANTE JULIO THERAPY 1 TQS 1/> REGIONS EACH 15 MINUTES APPLICATI 06506 ESCALANTE JULIO ESCALANTE JULIO ON 1 MODALITY 1/> AREAS HOT/COLD PACKS APPL 77542 ESCALANTE JULIO ESCALANTE JULIO MODALITY 1 1/> AREAS ELEC STIMJ UNATTENDE D CHIROPRA 38827 ESCALANTE JULIO ESCALANTE JULIO TIC 1 MANIPLTV TX EXTRASPIN AL 1/> REGION APPL 18394 ESCALANTE JULIO ESCALANTE JULIO MODALITY 1 1/> AREAS TRACTION MECHANICA L CHIROPRAC 03730 ESCALANTE JULIO ESCALANTE JULIO TIC 1 MANIPULAT [place] SPINAL 3-4 REGIONS THERAPEUT 30319 ESCALANTE JULIO ESCALANTE JULIO IC PX 1/> 1 AREAS EACH 15 MIN EXERCISES MANUAL 25870 ESCALANTE JULIO ESCALANTE JULIO THERAPY 1 TQS 1/> REGIONS EACH 15 MINUTES THERAPEUT 97506 ESCALANTE JULIO ESCALANTE JULIO IC PX 1/> 1 AREAS EACH 15 MIN EXERCISES CHIROPRAC 10974 ESCALANTE JULIO ESCALANTE JULIO TIC 1 MANIPULAT [place] SPINAL 3-4 REGIONS APPL 34636 ESCALANTE JULIO ESCALANTE JULIO MODALITY 1 1/> AREAS TRACTION MECHANICA L CHIROPRAC 47094 ESCALANTE JULIO ESCALANTE JULIO TIC 1 MANIPLTV TX EXTRASPIN AL 1/> REGION APPL 04777 ESCALANTE JULIO ESCALANTE JULIO MODALITY 1 1/> AREAS ELEC STIMJ UNATTENDE D APPLICATI 18175 ESCALANTE JULIO ESCALANTE JULIO ON 1 MODALITY 1/> AREAS HOT/COLD PACKS MANUAL 26529 ESCALANTE JULIO ESCALANTE JULIO THERAPY 1 TQS 1/> REGIONS EACH 15 MINUTES MANUAL 55708 ESCALANTE JULIO ESCALANTE JULIO THERAPY 1 TQS 1/> REGIONS EACH 15 MINUTES APPLICATI 33823 ESCALANTE JULIO ESCALANTE JULIO ON 1 MODALITY 1/> AREAS HOT/COLD PACKS APPL 93573 ESCALANTE JULIO ESCALANTE JULIO MODALITY 1 1/> AREAS ELEC STIMJ UNATTENDE D CHIROPRA 26862 ESCALANTE JULIO ESCALANTE JULIO TIC 1 MANIPLTV TX EXTRASPIN AL 1/> REGION APPL 28415 ESCALANTE JULIO ESCALANTE JULIO MODALITY 1 1/> AREAS TRACTION MECHANICA L CHIROPRA 84020 ESCALANTE JULIO ESCALANTE JULIO TIC 1 MANIPULAT [place] SPINAL 3-4 REGIONS THERAPEUT 98407 ESCALANTE JULIO ESCALANTE JULIO IC PX 1/> 1 AREAS EACH 15 MIN EXERCISES THERAPEUT 62584 ESCALANTE JULIO ESCALANTE JULIO IC PX 1/> 1 AREAS EACH 15 MIN EXERCISES CHIROPRAC 06315 ESCALANTE JULIO ESCALANTE JULIO TIC 1 MANIPULAT [place] SPINAL 3-4 REGIONS RADEX 55861 [place] GERALD JAM FOOT 1 MEDICAL COMPLETE SERV MINIMUM 3 FOUNDATIO VIEWS APPL 17030 ESCALANTE JULIO ESCALANTE JULIO MODALITY 1 1/> AREAS TRACTION MECHANICA L APPL 14486 ESCALANTE JULIO ESCALANTE JULIO MODALITY 1 1/> AREAS ELEC STIMJ UNATTENDE D CHIROPRAC 65519 ESCALANTE JULIO ESCALANTE JULIO TIC 1 MANIPLTV TX EXTRASPIN AL 1/> REGION APPLICATI 52506 ESCALANTE JULIO ESCALANTE JULIO ON 1 MODALITY 1/> AREAS HOT/COLD PACKS MANUAL 50149 ESCALANTE JULIO ESCALANTE JULIO THERAPY 1 TQS 1/> REGIONS EACH 15 MINUTES RADEX 49780 [facility] [place] TRISH FOOT 1 RADIOLOGY RHO COMPLETE MINIMUM 3 VIEWS CHIROPRA 58197 ESCALANTE JULIO ESCALANTE JULIO TIC 1 MANIPULAT [place] SPINAL 3-4 REGIONS CHIROPRA 80314 ESCALANTE JULIO ESCALANTE JULIO TIC 1 MANIPLTV TX EXTRASPIN AL 1/> REGION APPL 56889 ESCALANTE JULIO ESCALANTE JULIO MODALITY 1 1/> AREAS ELEC STIMJ UNATTENDE D APPL 63983 ESCALANTE JULIO ESCALANTE JULIO MODALITY 1 1/> AREAS TRACTION MECHANICA L MANUAL 68775 ESCALANTE JULIO ESCALANTE JULIO THERAPY 1 TQS 1/> REGIONS EACH 15 MINUTES THERAPEUT 79875 ESCALANTE JULIO ESCALANTE JULIO IC PX 1/> 1 AREAS EACH 15 MIN EXERCISES APPLICATI 90217 ESCALANTE JULIO ESCALANTE JULIO ON 1 MODALITY 1/> AREAS HOT/COLD PACKS MANUAL 29729 ESCALANTE JULIO ESCALANTE JULIO THERAPY 1 TQS 1/> REGIONS EACH 15 MINUTES THERAPEUT 93823 ESCALANTE JULIO ESCALANTE JULIO IC PX 1/> 1 AREAS EACH 15 MIN EXERCISES APPLICATI 26083 ESCALANTE JULIO ESCALANTE JULIO ON 1 MODALITY 1/> AREAS HOT/COLD PACKS APPL 35107 ESCALANTE JULIO ESCALANTE JULIO MODALITY 1 1/> AREAS ELEC STIMJ UNATTENDE D CHIROPRA 98881 ESCALANTE JULIO ESCALANTE JULIO TIC 1 MANIPLTV TX EXTRASPIN AL 1/> REGION CHIROPRA 87035 ESCALANTE JULIO ESCALANTE JULIO TIC 1 MANIPULAT [place] SPINAL 3-4 REGIONS APPL 59299 ESCALANTE JULIO ESCALANTE JULIO MODALITY 1 1/> AREAS TRACTION MECHANICA L APPL 31814 ESCALANTE JULIO ESCALANTE JULIO MODALITY 1 1/> AREAS TRACTION MECHANICA L CHIROPRAC 05930 ESCALANTE JULIO ESCALANTE JULIO TIC 1 MANIPULAT [place] SPINAL 3-4 REGIONS CHIROPRAC 55375 ESCALANTE JULIO ESCALANTE JULIO TIC 1 MANIPLTV TX EXTRASPIN AL 1/> REGION APPL 81702 ESCALANTE JULIO ESCALANTE JULIO MODALITY 1 1/> AREAS ELEC STIMJ UNATTENDE D APPLICATI 86839 ESCALANTE JULIO ESCALANTE JULIO ON 1 MODALITY 1/> AREAS HOT/COLD PACKS THERAPEUT 74391 ESCALANTE JULIO ESCALANTE JULIO IC PX 1/> 1 AREAS EACH 15 MIN EXERCISES MANUAL 49400 ESCALANTE JULIO ESCALANTE JULIO THERAPY 1 TQS 1/> REGIONS EACH 15 MINUTES RADEX 35539 [facility] [place] KOSTELIC SPINE 1 RADIOLOGY VINICIO LUMBOSACR AL 2/3 VIEWS CHIROPRA 04753 ESCALANTE JULIO ESCALANTE JULIO TIC 1 MANIPULAT [place] SPINAL 3-4 REGIONS APPL 51238 ESCALANTE JULIO ESCALANTE JULIO MODALITY 1 1/> AREAS TRACTION MECHANICA L APPL 44432 ESCALANTE JULIO ESCALANTE JULIO MODALITY 1 1/> AREAS ELEC STIMJ UNATTENDE D CHIROPRAC 10140 ESCALANTE JULIO ESCALANTE JULIO TIC 1 MANIPLTV TX EXTRASPIN AL 1/> REGION THERAPEUT 87426 ESCALANTE JULIO ESCALANTE JULIO IC PX 1/> 1 AREAS EACH 15 MIN EXERCISES MANUAL 74340 ESCALANTE JULIO ESCALANTE JULIO THERAPY 1 TQS 1/> REGIONS EACH 15 MINUTES APPLICATI 25537 ESCALANET JULIO ESCALANTE JULIO ON 1 MODALITY 1/> AREAS HOT/COLD PACKS APPLICATI 12828 ESCALANTE JULIO ESCALANTE JUILO ON 1 MODALITY 1/> AREAS HOT/COLD PACKS MANUAL 42392 ESCALANTE JULIO ESCALANTE JULIO THERAPY 1 TQS 1/> REGIONS EACH 15 MINUTES THERAPEUT 65576 ESCALANTE JULIO ESCALANTE JULIO IC PX 1/> 1 AREAS EACH 15 MIN EXERCISES CHIROPRAC 28824 ESCALANTE JULIO ESCALANTE JULIO TIC 1 MANIPLTV TX EXTRASPIN AL 1/> REGION APPL 96729 ESCALANTE JULIO ESCALANTE JULIO MODALITY 1 1/> AREAS ELEC STIMJ UNATTENDE D APPL 24571 ESCALANTE JULIO ESCALANTE JULIO MODALITY 1 1/> AREAS TRACTION MECHANICA L CHIROPRA 35684 ESCALANTE JULIO ESCALANTE JULIO TIC 1 MANIPULAT [place] SPINAL 3-4 REGIONS CHIROPRA 52119 ESCALANTE JULIO ESCALANTE JULIO TIC 1 MANIPULAT [place] SPINAL 3-4 REGIONS APPL 55223 ESCALANTE JULIO ESCALANTE JULIO MODALITY 1 1/> AREAS TRACTION MECHANICA L APPL 60087 ESCALANTE JULIO ESCALANTE JULIO MODALITY 1 1/> AREAS ELEC STIMJ UNATTENDE D CHIROPRA 62484 ESCALANTE JULIO ESCALANTE JULIO TIC 1 MANIPLTV TX EXTRASPIN AL 1/> REGION THERAPEUT 45677 ESCALANTE JULIO ESCALANTE JULIO IC PX 1/> 1 AREAS EACH 15 MIN EXERCISES MANUAL 85492 ESCALANTE JULIO ESCALANTE JULIO THERAPY 1 TQS 1/> REGIONS EACH 15 MINUTES APPLICATI 70671 ESCALANTE JULIO ESCALANTE JULIO ON 1 MODALITY 1/> AREAS HOT/COLD PACKS APPLICATI 78354 ESCALANTE JULIO ESCALANTE JULIO ON 1 MODALITY 1/> AREAS HOT/COLD PACKS MANUAL 20234 ESCALANTE JULIO ESCALANTE JULIO THERAPY 1 TQS 1/> REGIONS EACH 15 MINUTES THERAPEUT 38979 ESCALANTE JULIO ESCALANTE JULIO IC PX 1/> 1 AREAS EACH 15 MIN EXERCISES CHIROPRA 90800 ESCALANTE JULIO ESCALANTE JULIO TIC 1 MANIPLTV TX EXTRASPIN AL 1/> REGION APPL 13117 ESCALANTE JULIO ESCALANTE JULIO MODALITY 1 1/> AREAS ELEC STIMJ UNATTENDE D APPL 43956 ESCALANTE JULIO ESCALANTE JULIO MODALITY 1 1/> AREAS TRACTION MECHANICA L CHIROPRA 16008 ESCALANTE JULIO ESCALANTE JULIO TIC 1 MANIP[place]AT [place] SPINAL 3-4 REGIONS RADIOLOGI 75629 [facility] [place] OMAR MAT C EXAM 1 RADIOLOGY CHEST 2 VIEWS FRONTAL&L ATERAL RADEX 19276 [facility] 2 VIEWS RADEX 98874 [facility] SPINE 1 Y [facility] 2 VIEWS RADIOLOGI 05045 [facility] C EXAM 1 Y Y CHEST 2 HOSPITAL HOSPITAL VIEWS FRONTAL&L ATERAL RADEX 47547 [facility] [place] LASHAE ELBOW 1 RADIOLOGY DANNI COMPLETE MIN[place] 3 [place] [address] CHIPPS MOSES JAM SURG 1 MARLON & PATHOLOGY DUBILIER GROSS&CONCHIS ROSCOPIC EXAM RPR 82115 [facility] VENGUSWAM UMBILICAL 1 Y CATARINA Y CATARINA HRNA 5 YRS/> REDUCIBLE SIMPLE 04656 YARIEL GALO REPAIR 1 EMERGENCY CHAU SCALP/NEC SERVICES K/AX/MAIRA T/TRUNK 2.5CM/< URNLS DIP 57269 [facility] 1 N N STICK/TAB [facility] LET HOSPITA HOSPITA REAGENT AUTO MICROSCOP Y THERAPEUT 34099 [facility] IC 1 N N PROPHYLAC [facility] TIC/DX HOSPITA HOSPITA INJECTION SUBQ/IM PROTHROMB 41484 [facility] IN TIME 1 N N [facility] HOSPITA HOSPITA ECG 29782 [facility] ROUTINE 1 N N ECG [facility] W/LEAST HOSPITA HOSPITA 12 LDS TRCG ONLY W/O I&R BLOOD 05243 [facility] COUNT 1 N N COMPLETE [facility] AUTOMATED HOSPITA HOSPITA RADIOLOGI 02022 [facility] [place] OMAR MAT C EXAM 1 RADIOLOGY CHEST 2 VIEWS FRONTAL&L ATERAL BLOOD 62545 [facility] COUNT 1 N N SMEAR [facility] MCRSCP HOSPITA HOSPITA W/MNL DIFRNTL WBC COUNT BASIC 85350 [facility] METABOLIC 1 N N PANEL [facility] CALCIUM HOSPITA HOSPITA TOTAL THROMBOPL 46962 [facility] ASTIN 1 N N TIME [facility] PARTIAL HOSPITA HOSPITA PLASMA/WH OLE BLOOD COLLECTIO 09070 [facility] N VENOUS 1 N N BLOOD [facility] VENIPUNCT HOSPITA HOSPITA URE BLOOD 16225 [facility] D[facility] OCCULT 1 N URGENT ABD PEROXIDAS CARE E ACTV QUAL FECES 1 DETER IMMUNOASS 47980 [facility] AY NFCT 1 N URGENT ABD AGT ANTB CARE QUAL/SEMI LOUIE 1 STEP SERVICES 36193 [facility] D[facility] PROVIDED 1 N URGENT ABD OFFICE CARE OTH/THN REG SCHED HOURS MRI ANY 07285 [facility] GRACIE GE JT LOWER 1 RADIOLOGY EXTREM W/O CONTRAST [facility] 83110 [facility] PROVIDED 1 N URGENT ABD OFFICE CARE OTH/THN REG SCHED HOURS ACUTE 16448 [facility] HEPATITIS 1 N N PANEL [facility] HOSPITA HEPATITIS 35344 [facility] A 1 N N ANTIBODY [facility] HAAB HOSPITA HOSPITA COLLECTIO 77370 [facility] N VENOUS 1 N N BLOOD [facility] URE HEPATITIS 53615 [facility] CORE 1 N N ANTIBODY [facility] HBCAB HOSPITA HOSPITA TOTAL HEPATITIS 52786 [facility] SURF 1 N N ANTIBODY [facility] HBSAB HOSPITA HOSPITA RADIOLOGI 56828 [facility] GRACIE NELSON MAT C 1 RADIOLOGY EXAMINATI ON KNEE 3 VIEWS THERAPEUT 66450 [facility] IC 1 N URGENT ABD PROPHYLAC CARE TIC/DX INJECTION SUBQ/IM ECG 81063 [facility] ROUTINE 0 ANNITA ADR ECG CARDIOLOG W/LEAST Y CLINIC 12 LDS W/I&R COLLECTIO 50379 [facility] N VENOUS 0 N N BLOOD [facility] VENIPUNCT HOSPITA HOSPITA URE ACUTE 45419 [facility] HEPATITIS 0 N N PANEL [facility] [place] [address] [facility] GRACIE NELSON MAT ABDOMINAL 0 RADIOLOGY REAL TIME W/IMAGE LIMITED COLLECTIO 62449 [facility] N VENOUS 0 N N BLOOD [facility]IP[facility] HOSPITA HOSPITA URE LIPID 34290 [facility] PANEL 0 N N [facility]OSP[facility] COMPREHEN 78954 [facility] SIVE 0 N N METABOLIC [facility] [place] [address] [facility] THYROID 0 N N STIMULATI [facility] H[facility] HOSPITA [facility] 73155 [facility] D[facility] PROVIDED 0 N URGENT ABD OFFICE CARE OTH/THN REG SCHED HOURS MRI 95713 [facility] [place] TRISH SPINAL 0 RADIOLOGY RHO CANAL CERVICAL W/O CONTRAST [facility] RADEX 76609 [place] CELE ELBOW 0 MEDICAL MARIO COMPLETE IMAGING MINIMUM 3 [place] [address] [facility] ACID SERUM COMPREHEN 84744 [facility] SIVE 0 [facility] METABOLIC PANEL SERVICES 89323 [facility] D[facility] PROVIDED 0 N URGENT ABD OFFICE CARE OTH/THN REG SCHED HOURS BLOOD 67737 [facility] COUNT 0 [facility] COMPLETE AUTO&AUTO DIFRNTL WBC GLUCOSE 38972 [facility] QUANTITAT 0 N URGENT ABD CLARY BLOOD CARE XCPT REAGENT STRIP HEMOGLOBI 17905 [facility] N 0 [facility] GLYCOSYLA THERESA A1C NDL EMG 1 70518 GARCÍA TRA GARCÍA TRA XTR W/WO 0 RELATED PARASPINA L AREAS NRV CND 78875 GARCÍA TRA GARCÍA TRA AMPLT&LAT 0 NCY EA NRV MOTR W/O F-WAVE STD NRV CND 73980 GARCÍA TRA GARCÍA TRA AMPLT&LAT 0 ENCY EA NRV MOTOR W/F-WAVE STD NRV [facility] 96478 GARCÍA TRA GARCÍA TRA AMPLITUDE 0 & LATENCY EACH NERVE SENSORY RADEX 39193 [facility] ELBOW 0 N N COMPLETE [facility] MINIMUM 3 HOSPITA HOSPITA VIEWS RADEX 25855 [facility] [place] OMAR MAT HAND 0 RADIOLOGY MINIMUM 3 VIEWS RADEX 20748 [facility] [place] OMAR MAT SPINE 0 RADIOLOGY LUMBOSACR AL 2/3 VIEWS RADEX 71951 [facility] [place] OMAR MAT WRIST 0 RADIOLOGY COMPLETE MIN[place] [place] [address] [facility] [place] OMAR MAT ABDOMEN 0 RADIOLOGY W/CONTRAS T MATERIAL CT PELVIS 78568 [facility] [place] OMAR MAT 0 RADIOLOGY W/CONTRAS T MATERIAL RADEX 68858 [place]ICKELS SPINE 0 MEDICAL [place] LUMBOSACR SERV AL 2/3 FOUNDATIO VIEWS RADEX 91048 [place] BANDAR SPINE 0 MEDICAL STEPH LUMBOSACR IMAGING AL ASS MINIMUM 4 VIEWS RADEX 95630 [place] BANDAR SPINE 0 MEDICAL STEPH CERVICAL IMAGING 6 OR MORE ASS VIEWS RADEX 81551 [place] BANDAR SPINE 0 MEDICAL STEPH THORACIC IMAGING 3 VIEWS ASS RADEX TOE 95260 [place] CELE MINIMUM 0 MEDICAL MARIO 2 VIEWS IMAGING ASS RADEX 19428 [facility] [place] OMAR, FOOT 0 RADIOLOGY WILLIAM D COMPLETE MINIMUM 3 VIEWS URNLS DIP 69771 RAMÓN MELGAR 0 [facility] HOSP STICK/TAB INC INC LET REAGENT AUTO MICROSCOP Y URNLS DIP 41571 [facility] 0 [facility] STICK/TAB [facility] LET REAGENT AUTO MICROSCOP Y BLOOD 33950 [facility] [address] [facility] AUTO&AUTO DIFRNTL WBC CUL BACT 85594 [facility] XCPT 0 [facility] BLOOD/STO OL AEROBIC ISOL BASIC 68792 [facility] METABOLIC 0 [facility] CALCIUM TOTAL COLLECTIO 28513 [facility] N VENOUS 0 [facility] VENIPUNCT URE CULTURE 82918 [facility] BACTERIAL [address] [facility] QUANTTATI VE COLONY COUNT URINE SUSCEPTIB 56114 [facility] [facility] LTY STDY 0 [facility] IAL MICRO/AGA R DILUTJ RADEX 90677 [facility] [place] TRISH, ELBOW 0 RADIOLOGY HALLIE G COMPLETE MINIMUM 3 VIEWS DUP-SCAN 60649 [facility] [place] WE[place] XTR VEINS 0 RADIOLOGY LD, A D UNILATERA L/LIMITED STUDY RADEX 23955 [facility] [place] MARTINEZ, G ELBOW 2 0 RADIOLOGY T VIEWS NONINVASI 43864 [facility] VE 0 Y Y EAR/PULSE HOSPITAL HOSPITAL OXIMETRY SINGLE DETER NONINVASI 88923 [facility] Y Y E[facility]ULSE HOSPITAL HOSPITAL OXIMETRY SINGLE DETER RADEX 95346 [facility] NICOLAS, SACRUM & 0 Y OF DIANE A [facility] [place] MINIMUM 2 HOSPITAL VIEWS RADEX 73273 [place] FRANK, FOOT 0 MEDICAL VALERIE N COMPLETE SERV MINIMUM 3 FOUNDATIO [place]EX [place]E 68209 [facility] [place] OMAR, MINIMUM 0 RADIOLOGY WILLIAM D 2 VIEWS CUL BACT 87396 [facility] XCPT 9 [facility] BLOOD/STO OL AEROBIC ISOL SUSCEPTIB 41195 [facility] LTY STDY 9 [facility] IAL MICRO/AGA R DILUTJ THERAPEUT [address] PROPHYLAC TIC/DX INJECTION SUBQ/IM RADEX 23714 [facility] GRACIE MASTERS, SPINE 9 RADIOLOGY TOBY A LUMBOSACR AL 2/3 VIEWS INJECTION [id number] [address] KETOROLAC TROMETHAM INE PER 15 MG RADEX 75493 [facility] GRACIE UREÑA ANKLE 9 RADIOLOGY J COMPLETE MINIMUM 3 VIEWS STRAPPING 62994 [facility] 9 JEFFY SMITH &/FOOT EMERGENCY A PHYS INC RADIOLOGI 51946 [facility] Lydia ANDUJAR 9 RADIOLOGY J EXAMINATI ON TIBIA & FIBULA 2 VIEWS ANES 82501 [place] LIGIA, INTEG 9 ANESTHESI MIKE J MUSC & A GROUP NRV HEAD PSC NECK&POST ERIOR TRUNK EXCISION 18348 SHANIJOSE BELTRAN PILONIDAL 9 , QUITAQUITA Sawyer CYST/SINU S SIMPLE LEVEL III 71940 PATHOLOGY PATHOLOGY SURG 9 & & PATHOLOGY CYTOLOGY CYTOLOGY LAB LAB GROSS&CONCHIS ROSCOPIC EXAM BLOOD 39480 [facility] COUNT [address] [facility] AUTO&AUTO DIFRNTL WBC BASIC 93878 [facility] METABOLIC 9 [facility] CALCIUM TOTAL COLLECTIO 02556 [facility] N VENOUS 9 [facility] VENIPUNCT URE CUL BACT 73715 RAMÓN RAMÓN XCPT 9 [facility] URINE INC INC BLOOD/STO OL AEROBIC ISOL SUSCEPTIB 44590 RAMÓN MELGAR LTY STDY 9 [facility] ANTIMICRB INC INC IAL MICRO/AGA R DILUTJ CUL BACT 37034 RAMÓN MELGAR AEROBIC 9 [facility] ADDL INC INC METHS DEFINITIV E EA ISOL APPLICATI 30930 [facility] SHORT 9 JEFFY W E LEG EMERGENCY SPLINT PHYS INC CALF FOOT RADEX 64296 [facility] FOOT [address] [place] [address] COMPLETE MINIMUM 3 VIEWS RADEX 48001 [facility] ANKLE [address] [place] [address] COMPLETE MINIMUM 3 VIEWS RADEX 68180 [facility] [place] SCALF, SPINE 9 RADIOLOGY BOY E LUMBOSACR AL 2/3 VIEWS RADIOLOGI 51522 SHEBA OAKLEY C 9 MEDICAL RUY EXAMINATI IMAGING ON PELVIS ASSOCIATE 1/2 S VIEWS RADEX 84566 [facility] CIT[facility] SEGALCELE, SPINE 9 MEDICAL RUY LUMBOSACR IMAGING AL ASSOCIATE MINIMUM [address] [place] [address] RAMÓN MELGAR ABDOMEN 9 [facility] W/O INC INC CONTRAST MATERIAL URNLS DIP 54051 RAMÓN MELGAR 9 [facility] STICK/TAB INC INC LET REAGENT AUTO MICROSCOP Y CT PELVIS 95477 RAMÓN MELGAR W/O 9 [facility] CONTRAST INC INC MATERIAL BLOOD 41240 RAMÓN MELGAR COUNT 9 [facility] COMPLETE INC INC AUTO&AUTO DIFRNTL WBC 3D 23720 SHEBA PORTILLO, RENDERING 9 MEDICAL PITER P IMAGING W/INTERP& ASSOCIATE POSTPROC S DIFF WORK STATION BASIC 35486 RAMÓN MELGAR METABOLIC 9 [facility] PANEL INC INC CALCIUM TOTAL THERAPEUT 32297 [facility] IC 9 [facility] PROPHYLAC TIC/DX INJECTION SUBQ/IM SMR PRIM 38320 [facility] SRC [address] [place] [address] GRAM/GIEM SA STAIN BCT FUNGI/GAYATRI L CUL BACT 57914 [facility] XCPT 9 [facility] URINE BLOOD/STO OL AEROBIC ISOL RADEX 62700 [facility] GRACIE UREÑA, SPINE 9 RADIOLOGY J LUMBOSACR AL 2/3 VIEWS ANES 00558 GRACIE RODRIGUEZ, INTEG 9 MEDICAL RUI MUSC & SERVICES NRV HEAD NECK&POST ERIOR TRUNK EXCISION 80093 [facility] PILONIDAL 9 Y Y HOSPITAL HOSPITAL CYST/SINU S EXTENSIVE EXCISION 14737 GRACIE GARRETT H PILONIDAL 9 MEDICAL D SERV CYST/SINU FOUNDATIO S SIMPLE INJECTION J2175 [facility] 9 Y Y MEPERIDIN [facility] E HCL PER 100 MG RINGERS J7120 [facility] LACTATE 9 Y Y INFUSION [facility] UP TO 1000 CC INJECTION J1100 [facility] 9 Y Y DEXAMETHO [facility] SONE SODIUM PHOSPHATE 1 MG LEVEL III 48355 [facility] SURG 9 Y Y PATHOLOGY [facility] GROSS&CONCHIS ROSCOPIC EXAM INJECTION J3010 [facility] FENTANYL 9 Y Y CITRATE [facility] 0.1 MG UNCLASSIF J3490 [facility] IED DRUGS 9 Y Y [facility] INJECTION J2250 [facility] 9 Y Y MIDAZOLAM [facility] HCL PER 1 MG INJECTION J2270 [facility] MORPHINE 9 Y Y SULFATE [facility] UP TO 10 MG INJECTION J2405 [facility] 9 [facility] ON HCL PER 1 MG HEPATIC 74782 [facility] FUNCTION 9 [facility] PANEL INJECTION J2765 [facility] 9 Y Y METOCLOPR [facility] AMIDE HCL UP TO 10 MG INFUSION J7030 [facility] NORMAL 9 Y Y SALINE [facility] SOLUTION 1000 CC INJECTION J1200 [facility] 9 [facility] UP TO 50 MG INJECTION J1885 [facility] 9 Y Y KETOROLAC [facility] TROMETHAM INE PER 15 MG MYOCRD 45189 CARDIOLOG DINO, PRFUJ IMG 8 Y EMILIE Mckeon TOMOG ASSOCIATE SPECT ELECTRON MICROPROBE OPERATOR S OF STD [place] CV STRS 45848 CARDIOLOG DINO, TST 8 Y EMILIE Mckeon XERS&/OR ASSOCIATE RX CONT S OF ECG [place] W/SI&R MYOCRD 00701 CARDIOLOG DINO, PRFUJ STD 8 Y EMILIE Mckeon WALL ASSOCIATE MOTION S OF QUAL/LOUIE [place] STD MYOCRD 84420 CARDIOLOG DINO, PRFUJ STD 8 Y EMILIE Mckeon EJEC FXJ ASSOCIATE S OF [place] LIPID 93048 [facility] PANEL [address] [facility] COLLECTIO 99777 [facility] N VENOUS 8 N N BLOOD [facility] URE BLOOD 79284 [facility] COUNT 8 N N COMPLETE [facility] AUTO&AUTO [facility] DIFRNTL WBC COMPREHEN 49187 [facility] SIVE 8 N N METABOLIC [facility] COMPREHEN 06005 OFFICE OFFICE SIVE 8 [facility] METABOLIC DIAGNOSTI DIAGNOSTI PANEL C C SERVICES SERVICES ECG 57920 CARDIOLOG DINO, ROUTINE 8 Y EMILIE Mckeon ECG ASSOCIATE W/LEAST S OF 12 LDS [place] W/I&R ECG 16841 [facility] ROUTINE 8 N N ECG [facility] W/[facility] 12 [facility] TRCG ONLY W/O I&R CREATINE 23723 [facility] KINASE [address] [facility] INITIAL 23744 [facility] OBSERVATI 8 N N ON [facility] 30 MINUTES BLOOD 38046 [facility] COUNT 8 N N COMPLETE [facility] AUTO&AUTO [facility] [place] [address] [facility] TROPONIN 8 N N QUANTITAT [facility] RADIOLOGI 64052 [facility] CELLARO C 8 JEFFY - YORBA, EXAMINATI EMERGENCY BLANCO ON CHEST PHYS INC M [place] FRONTAL COLLECTIO 89671 [facility] N VENOUS 8 N N BLOOD [facility] URE ECG 19072 [facility] CELLARO ROUTINE 8 JEFFY - YORBA, ECG EMERGENCY BLANCO W/LEAST PHYS INC M 12 LDS I&R ONLY COMPREHEN 41899 [facility] SIVE 8 N N METABOLIC [facility] CREATINE 11098 [facility] KINASE MB 8 N N FRACTION [facility] AMB A0427 [facility] SERVICE 8 N-DIANE N-DIANE ALS CO EMS [facility] EMS EMERGENCY TRANSPORT LEVEL 1 GROUND A0425 [facility] N-DIANE N-DIANE PER CO EMS CO EMS STATUTE MILE RADIOLOGI 51273 [facility] AHMED, C 8 JEFFY SMITH EXAMINATI EMERGENCY A ON CHEST PHYS INC SINGLE VIEW FRONTAL ECG 48472 [facility] AHMED, ROUTINE 8 JEFFY SMIHT ECG EMERGENCY A W/LEAST PHYS INC 12 LDS I&R ONLY Encounters Encounter Start End Date Code Location Performer Type Date EMERGENCY 83525 [facility] DEPT 7 7 EMERGENCY VISIT PHYS PSC HIGH SEVERITY& THREAT [facility] RAMÓN - 7 7 [facility] OUTPATIEN INC T EMERGENCY 79440 [facility] 7 7 PHYSICIAN U DEPARTMEN S, PLLC T VISIT HIGH/URGE NT SEVERITY EMERGENCY 24331 RAMÓN 7 7 [facility] DEPARTMEN INC T VISIT LOW/MODER SEVERITY EMERGENCY 06654 [facility] DIAL 7 7 PHYSICIAN DEPARTMEN S, PLLC T VISIT MODERATE SEVERITY HOSPITAL RAMÓN - 7 7 [facility] OUTPATIEN INC T EMERGENCY 64153 RAMÓN 7 7 [facility] DEPARTMEN INC T VISIT LOW/MODER SEVERITY EMERGENCY 51611 [facility] 7 7 JEFFY DEPARTMEN EMERGENCY T VISIT PHYS HIGH/URGE NT SEVERITY HOSPITAL RAMÓN - 7 7 [facility] OUTPATIEN INC T EMERGENCY 38791 RAMÓN 7 7 [facility] DEPARTMEN INC T VISIT LOW/MODER SEVERITY EMERGENCY 89458 [facility] 7 7 PHYSICIAN DEPARTMEN S, PLLC T VISIT MODERATE SEVERITY [facility]OSP[facility] - 7 7 [facility] OUTPATIEN E T HOSPITALS EMERGENCY 30268 [facility] 7 7 NURSE DEPARTMEN PRACTITIO T VISIT NER GR HIGH/URGE NT SEVERITY OFFICE 83819 [facility] 7 7 [place] T NEW 30 PHYSICIAN MINUTES S ASSIST [facility]OSP[facility] - 7 7 [facility] OUTPATIEN E T HOSPITALS EMERGENCY 40966 [facility] 7 7 [place] DEPARTMEN PHYSICIAN T VISIT S MODERATE SEVERITY OFFICE 58993 [facility] 7 7 PHYSICIAN T VISIT PRACTICE 15 L MINUTES OFFICE 32939 [facility] 7 7 PHYSICIAN T NEW 30 PRACTICE MINUTES L EMERGENCY 38709 [facility] 7 7 JEFFY DEPARTMEN EMERGENCY T VISIT PHYS MODERATE SEVERITY OFFICE 93725 [facility] 7 7 MEDICAL T NEW 45 SERV MINUTES FOUNDATIO N EMERGENCY 06546 6 6 [facility] DEPARTMEN E T VISIT HOSPITALS HIGH/URGE NT SEVERITY EMERGENCY 29779 GRACIE DELAROSA 6 6 MEDICAL DEPARTMEN SERV T VISIT FOUNDATIO MODERATE N SEVERITY [facility]OSP[facility] - 6 6 [facility] OUTPATIEN E T HOSPITALS EMERGENCY 23267 6 6 [facility] DEPARTMEN E T VISIT HOSPITALS HIGH/URGE NT SEVERITY [facility] - 6 6 [facility] OUTPATIEN E T HOSPITALS EMERGENCY 24876 [facility] 6 6 [place] DEPARTMEN PHYSICIAN T VISIT S ASSIST LOW/MODER SEVERITY [facility]OSP[facility] [place] 76374 6 N OUTPATIEN COMMUNTIY T HOSPITA EMERGENCY 21884 JOESPH MELGAR 6 6 JEFFY DEPARTMEN EMERGENCY T VISIT PHYS HIGH/URGE NT SEVERITY EMERGENCY 52548 GRACIE CHAU 6 6 MEDICAL DEPARTMEN SERV T VISIT FOUNDATIO LOW/MODER N SEVERITY [facility]OSP[facility] - 6 6 [facility] OUTPATIEN E T HOSPITALS EMERGENCY 53462 6 6 [facility] DEPARTMEN E T VISIT HOSPITALS LOW/MODER SEVERITY OFFICE 29921 RODRIGUEZLENIN MALU YOU OUTPATIEN 6 6 PHYSICIAN T NEW 30 PRACTICE MINUTES L EMERGENCY 24755 6 6 [facility] DEPARTMEN E T VISIT HOSPITALS LOW/MODER SEVERITY EMERGENCY 36610 GRACIE HENRY 6 6 MEDICAL DEPARTMEN SERV T VISIT FOUNDATIO MODERATE N SEVERITY [facility]OSP[facility] - 6 6 [facility] OUTPATIEN E T HOSPITALS EMERGENCY 17685 RAMÓN 6 6 [facility] DEPARTMEN INC T VISIT LIMITED/M INOR PROB EMERGENCY 37388 [facility] 6 6 PHYSICIAN DEPARTMEN S, PLLC T VISIT MODERATE SEVERITY HOSPITAL RAMÓN - 6 6 [facility] OUTPATIEN INC T EMERGENCY 69354 [facility] ADRIANAMOHSEN 6 6 JEFFY OSIEL DEPARTMEN EMERGENCY T VISIT PHYS MODERATE SEVERITY HOSPITAL RAMÓN - 6 6 [facility] OUTPATIEN INC T EMERGENCY 19464 RAM[facility] 6 [facility] VISIT LIMITED/M INOR PROB EMERGENCY 15854 [facility] 6 6 PHYSICIAN Priya GONCALVES [facility] T VISIT MODERATE SEVERITY EMERGENCY 67505 [facility] 6 6 JEFFY ELO [facility] EMERGENCY T VISIT PHYS HIGH/URGE NT SEVERITY HOSPITAL RAMÓN - 6 6 [facility] OUTPATIEN INC T EMERGENCY 84695 RAMÓN 6 6 [facility] T VISIT LIMITED/M INOR PROB EMERGENCY 71040 [facility] VALENTINE 6 6 PHYSICIAN KENYATTA [facility], [facility] T VISIT MODERATE SEVERITY EMERGENCY 05001 [facility] 6 6 JEFFY IVANNA [facility] EMERGENCY T VISIT PHYS MODERATE SEVERITY HOSPITAL RAMÓN - 6 6 [facility] OUTPATIEN INC T OFFICE 11777 [facility] 6 6 MISAELY KIEL T VISIT ADULT & 25 PED MINUTES HOSPITAL RAMÓN - 6 6 [facility] OUTPATIEN INC T HOSPITAL RAMÓN - 6 6 [facility] OUTPATIEN INC T EMERGENCY 28436 [facility] OCHO[facility] 6 6 PHYSICIAN CONCHIS [facility] T VISIT HIGH/URGE NT SEVERITY HOSPITAL RAMÓN - 6 6 [facility] OUTPATIEN INC T OFFICE 87925 [facility] 6 6 KENTNIEVESY KIEL T VISIT ADULT & 25 PED MINUTES OFFICE 79142 [facility] 6 6 MISAELY KIEL ION ADULT & NEW/ESTAB PED PATIENT 60 MIN EMERGENCY 03671 [facility] 6 6 JEFFY JENNI [facility] EMERGENCY T VISIT PHYS MODERATE SEVERITY EMERGENCY 42494 [facility] ARNOLD 6 6 JEFFY OSIEL DEPARTMEN EMERGENCY T VISIT PHYS MODERATE SEVERITY EMERGENCY 29729 [facility] ESPINOZA BAB 6 6 JEFFY DEPARTMEN EMERGENCY T VISIT PHYS MODERATE SEVERITY EMERGENCY 45602 [facility] VALENTINE 6 6 PHYSICIAN KENYATTA [facility] S, [facility] T VISIT MODERATE SEVERITY EMERGENCY 20020 RAMÓN 6 6 [facility] DEPARTMEN INC T VISIT LOW/MODER SEVERITY HOSPITAL RAMÓN - 6 6 [facility] OUTPATIEN INC T EMERGENCY 58258 RAMÓN 6 6 [facility] DEPARTMEN INC T VISIT LOW/MODER SEVERITY HOSPITAL RAMÓN - 6 6 [facility] OUTPATIEN INC T EMERGENCY 61796 [facility] MAJOR 6 6 PHYSICIAN [facility] S, [facility] T VISIT MODERATE SEVERITY HOSPITAL RAMÓN - 6 6 [facility] OUTPATIEN INC T OFFICE 04143 [facility] OUTPATIEN 6 6 MD LUCI, T NEW 45 PSC MINUTES OFFICE 17572 RAMÓN OUTPATIEN 6 6 [facility]OS[facility] T VISIT INC 10 MINUTES EMERGENCY 63476 [facility] 6 6 PHYSICIAN CONCHIS [facility] S [facility] T VISIT MODERATE SEVERITY EMERGENCY 66017 RAMÓN 6 6 [facility] DEPARTMEN INC T VISIT LOW/MODER SEVERITY HOSPITAL RAMÓN - 6 6 [facility] OUTPATIEN INC T EMERGENCY 30842 RAMÓN 5 5 [facility] DEPARTMEN INC T VISIT LOW/MODER SEVERITY HOSPITAL RAMÓN - 5 5 [facility] OUTPATIEN INC T EMERGENCY 66588 [facility] 5 5 PHYSICIAN [facility] S [facility] T VISIT MODERATE SEVERITY EMERGENCY 16355 [facility] 5 5 JEFFY LIZA [facility] EMERGENCY T VISIT PHYS HIGH/URGE NT SEVERITY HOSPITAL [facility] - 5 [facility]ER[facility] 60446 GRACIE BEARVER 5 5 MEDICAL ALEX [facility] SERV T VISIT FOUNDATIO MODERATE N SEVERITY HOSPITAL RAMÓN - 5 5 [facility] OUTPATIEN INC T EMERGENCY 18288 [facility] DEPT 5 5 PHYSICIAN VISIT S, PLLC HIGH SEVERITY& THREAT FUNCJ EMERGENCY 66775 [facility] 5 5 JEFFY [facility] EMERGENCY T VISIT PHYS MODERATE SEVERITY [facility] EMERGENCY 01238 [facility] CELLARO 5 5 JEFFY - YORBA [facility] EMERGENCY PAT T VISIT PHYS MODERATE SEVERITY HOSPITAL RAMÓN - 5 5 [facility] OUTPATIEN [facility] RAMÓN - 5 5 [facility] T EMERGENCY 16512 [facility] 5 5 JEFFY ELO [facility] EMERGENCY T VISIT PHYS MODERATE SEVERITY EMERGENCY 74188 RAMÓN OCHOA 5 5 [facility] T VISIT P LOW/MODER SEVERITY EMERGENCY 53108 [facility] 4 4 JEFFY [facility] EMERGENCY T VISIT PHYS MODERATE SEVERITY OFFICE 69746 [facility] 4 4 KENYATTA YOU T VISIT 25 MINUTES EMERGENCY 17200 [facility] 4 4 JEFFY PAT [facility] EMERGENCY T VISIT PHYS MODERATE SEVERITY EMERGENCY 83511 RAMÓN 4 4 MEM HOS[facility] T VISIT LOW/MODER SEVERITY EMERGENCY 24375 DON OCHOA 4 4 [facility] T VISIT MODERATE SEVERITY HOSPITAL RAMÓN - 4 4 [facility] OUTPATIEN INC T EMERGENCY 89423 KANDI MILES 4 4 DEPARTMEN T VISIT MODERATE SEVERITY EMERGENCY 63617 KANDI MILES 4 4 DEPARTMEN T VISIT MODERATE SEVERITY EMERGENCY 94930 CELLAROSI CELLAROSI 4 4 - YORBA - YORBA DEPARTMEN PAT PAT T VISIT HIGH/URGE NT SEVERITY EMERGENCY 69495 ALFARIS ALFARIS 4 4 [facility] DEPARTMEN T VISIT HIGH/URGE NT SEVERITY EMERGENCY 25271 DON [place] [address] [facility] DEPARTMEN T VISIT MODERATE SEVERITY HOSPITAL RAMÓN - 3 3 [facility] EMERGENC[facility] 45574 CHUY II CHUY II 3 3 THO THO DEPARTMEN T VISIT MODERATE SEVERITY EMERGENCY 32144 SOKAN BAB SOKAN BAB 3 3 DEPARTMEN T VISIT MODERATE SEVERITY EMERGENCY 03752 ALFARIS ALFARIS 3 3 [facility] DEPARTMEN T VISIT MODERATE SEVERITY EMERGENCY 11072 RECHTIN RECHTIN 3 3 [facility] DEPARTMEN T VISIT MODERATE SEVERITY EMERGENCY 24679 KANDI MILES 3 3 DEPARTMEN T VISIT MODERATE SEVERITY EMERGENCY 88400 OMARIKAN BAB SOKAN BAB 3 3 DEPARTMEN T VISIT MODERATE SEVERITY EMERGENCY 77372 YARIEL MILES 3 3 EMERGENCY DEPARTMEN SERVICES T VISIT HIGH/URGE NT SEVERITY EMERGENCY 38032 STACK HEIDI STACK HEIDI 3 3 DEPARTMEN T VISIT HIGH/URGE NT SEVERITY EMERGENCY 37870 YARIEL WHITAKER 3 3 EMERGENCY DEPARTMEN SERVICES T VISIT MODERATE SEVERITY EMERGENCY 55897 YARIEL BARROSO DEPT 3 3 EMERGENCY JAM VISIT SERVICES HIGH SEVERITY& THREAT FUNCJ EMERGENCY 92005 CAREY PATINO 3 3 SET SET DEPARTMEN T VISIT HIGH/URGE NT SEVERITY EMERGENCY 81915 CHUY II CHUY II 3 3 THO THO DEPARTMEN T VISIT MODERATE SEVERITY EMERGENCY 18072 RAMÓN 3 3 [facility] DEPARTMEN INC T VISIT LIMITED/M INOR PROB EMERGENCY 08422 DON OCHOA 3 3 CONCHIS CONCHIS DEPARTMEN T VISIT HIGH/URGE NT SEVERITY HOSPITAL RAMÓN - 3 3 [facility] OUTPATIEN INC T EMERGENCY 46930 YARIEL COTE DEPT 3 3 EMERGENCY III KENYON VISIT SERVICES HIGH SEVERITY& THREAT FUNCJ EMERGENCY 71957 ABNER MAT ABNER MAT 2 2 DEPARTMEN T VISIT MODERATE SEVERITY EMERGENCY 68604 YARIEL GUSTAFSON 2 2 EMERGENCY ADT JONATHAN DEPARTMEN SERVICES T VISIT MODERATE SEVERITY OFFICE 73077 KATT YOU CONSULTAT 2 2 ION NEW/ESTAB PATIENT 60 MIN EMERGENCY 90210 FOX LISA FOX LISA 2 2 DEPARTMEN T VISIT MODERATE SEVERITY OFFICE 34341 MIGDALIA NEGRON OUTPATIEN 2 2 CLEMENTINE CLEMENTINE T VISIT 15 MINUTES EMERGENCY 60529 PUND CHR PUND CHR 2 2 DEPARTMEN T VISIT MODERATE SEVERITY EMERGENCY 08697 CHUY II CHUY II 2 2 THO THO DEPARTMEN T VISIT MODERATE SEVERITY EMERGENCY 17672 OSWALDO CHACON 2 2 JULIO JULIO DEPARTMEN T VISIT MODERATE SEVERITY EMERGENCY 55059 RAMÓN 2 2 [facility]OS[facility] DEPARTMEN INC T VISIT LOW/MODER SEVERITY EMERGENCY 37096 DON OCHOA 2 2 CONCHIS CONCHIS DEPARTMEN T VISIT MODERATE SEVERITY HOSPITAL RAMÓN - 2 2 [facility] OUTPATIEN INC T EMERGENCY 61608 CHUY II CHUY II 2 2 THO THO DEPARTMEN T VISIT HIGH/URGE NT SEVERITY OFFICE 44145 OZ JR OZ JR OUTPATIEN 2 2 KENYON KENYON T NEW 30 MINUTES EMERGENCY 83967 ROCAEL [place] DEPT 2 2 III KENYON III KENYON VISIT HIGH SEVERITY& THREAT FUNCJ OFFICE 15524 MIGDALIA NEGRON OUTPATIEN 2 2 CLEMENTINE CLEMENTINE T VISIT 15 MINUTES EMERGENCY 70625 RAMÓN 2 2 [facility] DEPARTMEN INC T VISIT MODERATE SEVERITY HOSPITAL RAM[facility]N - 2 2 [facility] OUTPATIEN INC T EMERGENCY 73694 DEJUAN ZAIDI 2 2 GAR GAR DEPARTMEN T VISIT MODERATE SEVERITY OFFICE 17344 NAV[place] PAD NAVARRO PAD OUTPATIEN 2 2 T VISIT 15 MINUTES EMERGENCY 62923 CHUY T CHUY T 2 2 DEPARTMEN T VISIT MODERATE SEVERITY EMERGENCY 13902 RECHTIN RECHTIN 2 2 TEXTILE DESIGNS SALES 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 TEXTILE DESIGNS SALES 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 DEPARTMEN T VISIT HIGH/URGE NT SEVERITY OFFICE 69755 LI LI OUTPATIEN 2 2 KIEL KIEL T VISIT 15 MINUTES OFFICE 91701 [facility]ARR[facility] PAD [place] PAD OUTPATIEN 2 2 T VISIT 15 MINUTES EMERGENCY 95986 CELLAROSI CELLAROSI 2 2 - YORBA - YORBA DEPARTMEN PAT PAT T VISIT HIGH/URGE NT SEVERITY EMERGENCY 32131 YARIEL MARTIN 2 2 EMERGENCY DEPARTMEN SERVICES T VISIT HIGH/URGE NT SEVERITY OFFICE 89291 MARY ODESSA MARY ODESSA OUTPATIEN 2 2 T VISIT 15 MINUTES EMERGENCY 20435 CHUY T CHUY T 2 2 DEPARTMEN T VISIT MODERATE SEVERITY OFFICE 83884 LI LI OUTPATIEN 2 2 KIEL KIEL T VISIT 15 MINUTES EMERGENCY 60211 DOWNS PAT DOWNS PAT 2 2 DEPARTMEN T VISIT HIGH/URGE NT SEVERITY EMERGENCY 68953 [place] 2 2 [facility] T VISIT MODERATE SEVERITY [facility] [place] - 2 2 [facility] T EMERGENCY 26920 GRACIE KIRKLAND 2 2 MEDICAL TEREZA DEPARTMEN SERV T VISIT FOUNDATIO MODERATE SEVERITY EMERGENCY 28876 YARIEL ARANDA 2 2 EMERGENCY PAT DEPARTMEN SERVICES T VISIT MODERATE SEVERITY OFFICE 49818 GUILLERMO LI CONSULTAT 2 2 KIEL KIEL ION NEW/ESTAB PATIENT 40 MIN OFFICE 26902 MOIRA PIZARRO OUTPATIEN 2 2 MITZI MITZI T NEW 20 MINUTES OFFICE 70501 POWELL POWELL OUTPATIEN 2 2 OSBALDO OSBALDO T VISIT 15 MINUTES EMERGENCY 71290 RAMÓN 2 2 [facility] DEPARTMEN INC T VISIT LOW/MODER SEVERITY EMERGENCY 40406 YARIEL MERINOEY 2 2 EMERGENCY CONCHIS DEPARTMEN SERVICES T VISIT HIGH/URGE NT SEVERITY HOSPITAL RAM[facility]N - 2 2 [facility] OUTPATIEN INC T EMERGENCY 92556 CHUY T CHUY T 2 2 DEPARTMEN T VISIT MODERATE SEVERITY [facility] [place] - 2 2 [facility] T OFFICE 59048 POWELL POWELL OUTPATIEN 2 2 OSBALDO OSBALDO T VISIT 15 MINUTES EMERGENCY 05167 GRACIE ROMAN 2 2 [employer] [employer] DEPARTMEN SERV T VISIT FOUNDATIO HIGH/URGE NT SEVERITY OFFICE 25102 AICHA CARTAGENA AICHA MITZI OUTPATIEN 2 2 T VISIT 15 MINUTES OFFICE 66136 MARY ODESSA MARY ODESSA OUTPATIEN 2 2 T NEW 20 MINUTES OFFICE 00231 MIGDALIA NEGRON OUTPATIEN 2 2 CLEMENTINE CLEMENTINE T VISIT 15 MINUTES EMERGENCY 55533 OSWALDO CHACON 2 2 JULIO JULIO DEPARTMEN T VISIT MODERATE SEVERITY HOSPITAL [facility] - 2 2 [facility] OUTPATIEN INC T EMERGENCY 52764 YARIEL OCHOA 2 2 EMERGENCY CONCHIS DEPARTMEN SERVICES T VISIT HIGH/URGE NT SEVERITY EMERGENCY 23492 RAMÓN 2 2 [facility] DEPARTMEN INC T VISIT LOW/MODER SEVERITY EMERGENCY 32529 YARIEL TIDWELL 2 2 EMERGENCY CAR DEPARTMEN SERVICES T VISIT LIMITED/M INOR PROB EMERGENCY 53737 VERONICA MARTIN 2 2 [facility] DEPARTMEN T VISIT HIGH/URGE NT SEVERITY [facility] - 2 2 N OUTPATIEN COMMUNTIY T HOSPITA OFFICE 61434 NAAVRRO PAD [facility] T VISIT 15 MINUTES EMERGENCY 51034 YARIEL OCHOA 2 2 EMERGENCY CONCHIS DEPARTMEN SERVICES T VISIT HIGH/URGE NT SEVERITY EMERGENCY 89684 RAMÓN 2 2 [facility] DEPARTMEN INC T VISIT LOW/MODER SEVERITY [facility] 23824 DEJUAN ZAIDI 2 2 GAR GAR DEPARTMEN T VISIT MODERATE SEVERITY EMERGENCY 16926 YARIEL TIDWELL 2 2 EMERGENCY CAR DEPARTMEN SERVICES T VISIT MODERATE SEVERITY OFFICE 77648 [facility] SHARI SHARI T VISIT 15 MINUTES EMERGENCY 70668 OSWALDO CHACON 1 1 JULIO JULIO DEPARTMEN T VISIT MODERATE SEVERITY EMERGENCY 67851 UNIVERSIT 1 1 Y [facility] T VISIT MODERATE SEVERITY HOSPITAL [facility] - 1 1 Y OUTPATI HOSPITAL T [facility] [place] - 1 1 [facility] T EMERGENCY [address] [place] 1 1 [facility] T VISIT MODERATE SEVERITY OFFICE 92223 NAVARRO PAD [facility]AD [facility] T NEW 20 MINUTES EMERGENCY 45083 OSWALDO CHACON 1 1 JULIO JULIO [facility] T VISIT HIGH/URGE NT SEVERITY EMERGENCY 92325 DONHUNTER OCOHA 1 1 CONCHIS CONCHIS [facility] T VISIT HIGH/URGE NT SEVERITY HOSPITAL RAMÓN - 1 1 [facility] T EMERGENCY 53539 RAMÓN 1 1 [facility] INC T VISIT LOW/MODER SEVERITY OFFICE 60796 ESCALANTE JULIO ESCALANTE JULIO [facility] 1 1 T VISIT 15 MINUTES EMERGENCY 19016 ACS TEODORO 1 1 [facility] C[facility] T VISIT PHYSICANS MODERATE M SEVERITY EMERGENCY 54003 YARIEL CELLAROSI 1 1 EMERGENCY - [facility] SERVICES PAT T VISIT MODERATE SEVERITY EMERGENCY 61263 UNIVERSIT 1 1 Y [facility] T VISIT MODERATE SEVERITY HOSPITAL UNIVERSIT - 1 1 Y [facility] T OFFICE 15389 ESCALANTE JULIO ESCALANTE JULIO [facility] 1 T VISIT 15 MINUTES EMERGENCY 71713 UNIVERSIT 1 1 Y [facility] T VISIT MODERATE SEVERITY HOSPITAL UNIVERSIT - 1 1 Y [facility] T EMERGENCY 17697 ACS MERCANTONINOT 1 1 [facility] CARE T VISIT PHYSICANS HIGH/URGE M NT SEVERITY OFFICE 07755 VENGUSWAM VENGUSWAM [facility] 1 Y CATARINA Y [facility] T VISIT 15 MINUTES OFFICE 74470 ESCALANTE JULIO ESCALANTE JULIO OUTPATIEN 1 1 T NEW 30 MINUTES EMERGENCY 56106 GRACIE GOINS JESSICA 1 1 MEDICAL DEPARTMEN SERV T VISIT FOUNDATIO MODERATE SEVERITY HOSPITAL UNIVERSIT - 1 1 Y [facility] T EMERGENC[facility] 89884 GRACIE MONIQUE 1 1 MEDICAL SON DEPARTMEN SERV T VISIT FOUNDATIO MODERATE SEVERITY EMERGENCY 09554 UNIVERSIT 1 1 Y [facility] T VISIT LOW/MODER SEVERITY EMERGENCY 53565 YARIEL FERNANDEZ 1 1 [facility] T VISIT HIGH/URGE NT SEVERITY EMERGENCY 18031 UNIVERSIT 1 1 Y [facility] T VISIT LOW/MODER SEVERITY HOSPITAL UNIVERSIT - 1 1 Y [facility] T EMERGENCY 56159 GRACIE WHARTON JR 1 1 MEDICAL [place] DEPARTMEN SERV T VISIT FOUNDATIO MODERATE SEVERITY HOSPITAL RAMÓN - 1 1 [facility] OUTPATIEN INC T EMERGENCY 97884 YARIEL GONZALEZ 1 1 [facility] T VISIT HIGH/URGE NT SEVERITY EMERGENCY 75802 RAMÓN 1 1 [facility] INC T VISIT LOW/MODER SEVERITY EMERGENCY 08571 [facility] GAYLE 1 1 JEFFY [facility] EMERGENCY T VISIT PHYS MODERATE SEVERITY EMERGENCY 39885 YARIEL SHEETS 1 1 EMERGENCY [facility] DEPARTMEN SERVICES T VISIT MODERATE SEVERITY EMERGENCY 53898 YARIEL OCHOA 1 1 [facility]Y [facility] T VISIT HIGH/URGE NT SEVERITY EMERGENCY 11757 RAMÓN 1 1 [facility] T VISIT LIMITED/M INOR PROB HOSPITAL RAMÓN - 1 1 [facility] OUTPATIEN INC T EMERGENCY 16461 [place] 1 1 [facility] HOSPITA LOW/MODER SEVERITY EMERGENCY 51814 YARIEL DOWNING 1 1 EMERGENCY - YORBA DEPARTMEN SERVICES PAT T VISIT HIGH/URGE NT SEVERITY HOSPITAL [place] [address] 1 N OUTPATIEN [facility] UN[facility] - 1 1 [facility] T EMERGENCY 09083 GRACIE MARC 1 1 MEDICAL MITZI DEPARTMEN SERV T VISIT FOUNDATIO MODERATE SEVERITY H[facility]PITAL [place] [address] 1 HOSPITAL OUTPATIEN T EMERGENCY 49549 [facility] RANDY JAM 1 1 [facility] T VISIT PHYS MODERATE SEVERITY EMERGENCY 71468 [place] [address] 1 HOSPITAL DEPARTMEN T VISIT LOW/MODER SEVERITY EMERGENCY 73235 AYRIEL GALO [address] [facility] SERVICES T VISIT MODERATE SEVERITY EMERGENCY 01296 YARIEL ZAIDI DEPT 1 1 EMERGENCY GAR VISIT SERVICES HIGH SEVERITY& THREAT FUNCJ EMERGENCY 60879 [facility] 1 1 N [facility] COMMUNITY T VISIT HOSPITA MODERATE SEVERITY HOSPITAL [facility] 59350 VENGUSWAM VENGUSWAM OUTPATIEN 1 1 Y CATARINA Y CATARINA T VISIT 25 MINUTES HOSPITAL [place] [address] 1 N OUTPATIEN [facility] T HOSPITA OFFICE 56068 VENGUSWAM VENGUSWAM OUTPATIEN 1 1 Y CATARINA Y CATARINA T NEW 30 MINUTES OFFICE 35536 [facility] RABLEELAE OUTPATIEN 1 1 N URGENT ABD T VISIT CARE 15 MINUTES EMERGENCY 21993 YARIEL GALO 1 1 [facility] HIGH/URGE NT SEVERITY OFFICE 34188 [facility] KENRICKE [facility] N URGENT ABD T VISIT CARE 15 MINUTES HOSPITAL [place] - 1 1 N [facility] ESSIECINCINNATI - 1 1 N OUTPATIEN [facility] HOSPITA OFFICE 55211 ESSIEKai SPICER OUTPATIEN 1 1 N URGENT ABD T VISIT CARE 15 MINUTES OFFICE 02053 ESSIEKai SPICER OUTPATIEN 1 1 N URGENT ABD T VISIT CARE 15 MINUTES EMERGENCY 20701 RAMÓN 1 1 [facility] DEPARTMEN INC T VISIT LOW/MODER SEVERITY EMERGENCY 49832 YARIEL GONZALEZ 1 1 EMERGENCY DEPARTMEN SERVICES T VISIT HIGH/URGE NT SEVERITY HOSPITAL RAMÓN - 1 1 [facility] OUTPATIEN INC T EMERGENCY 12470 YARIEL GALO 1 1 EMERGENCY [facility] DEPARTMEN SERVICES T VISIT MODERATE SEVERITY OFFICE 15231 GRACIE GARRETT Timur OUTPATIEN 1 1 MEDICAL T VISIT SERV 10 FOUNDATIO MINUTES OFFICE 10652 [facility] 1 N URGENT ABD T VISIT CARE 15 MINUTES OFFICE 94138 [facility] 1 1 N URGENT ABD T VISIT CARE 15 MINUTES OFFICE 25492 [facility] 0 0 N URGENT ABD T VISIT CARE 15 MINUTES OFFICE 30225 . [facility] CONSULTAT 0 0 ANNITA GALINDO CARDIOLOG NEW/ESTAB Y CLINIC PATIENT 30 MIN OFFICE 81925 ESSIEKai SPICER OUTPATIEN 0 0 N URGENT ABD T VISIT CARE 15 MINUTES EMERGENCY 31355 YARIEL GALO 0 0 EMERGENCY CH[facility] DEPARTMEN SERVICES T VISIT MODERATE SEVERITY [facility]OS[facility] N [facility]EN [facility] - 0 0 N OUTPATIEN [facility] HOSPITA OFFICE 00417 [facility] DANNIELLE OUTPATIEN 0 0 N URGENT ABD T VISIT CARE 15 MINUTES HOSPITAL [facility] - 0 0 N [facility]EN [facility] - 0 0 N OUTPATIEN COMMUNITY T HOSPITA OFFICE 80736 [facility] DANNIELLE OUTPATIEN 0 0 N URGENT ABD T VISIT CARE 15 MINUTES EMERGENCY 50990 RAMÓN 0 0 MEM HOSP DEPARTMEN INC T VISIT LOW/MODER SEVERITY EMERGENCY 56340 YARIEL COTE 0 0 EMERGENCY III [place] DEPARTMEN SERVICES T VISIT HIGH/URGE NT SEVERITY HOSPITAL RAMÓN - 0 0 [facility] OUTPATIEN INC T OFFICE 08118 [facility] [place]PAT[place] 0 0 [place] T VISIT ORTHOPAED 15 [facility] MINUTES OFFICE 65664 GARCÍA TRA GARCÍA TRA OUTPATIEN 0 0 T VISIT 10 MINUTES OFFICE 66836 [facility] DANNIELLE OUTPATIEN 0 0 N URGENT ABD T NEW 30 CARE MINUTES OFFICE 20317 [facility] GARC[facility] TRA OUTPATIEN 0 0 [place] T VISIT ORTHOPAED 15 [facility] MINUTES [facility] - 0 0 N [facility] 90797 [facility] 0 0 N DEPARTMEN COMMUNITY T VISIT HOSPITA MODERATE SEVERITY EMERGENCY 94612 YARIEL Griffin 0 0 EMERGENCY DEPARTMEN SERVICES T VISIT MODERATE SEVERITY EMERGENCY 13854 YARIEL ROBERTO DEPT 0 0 EMERGENCY DON VISIT SERVICES HIGH SEVERITY& THREAT [facility] RAMÓN - 0 0 [facility] OUTPATIEN INC T EMERGENCY 97837 YARIEL OCHOA, 0 0 EMERGENCY DANIELA S DEPARTMEN SERVICES T VISIT HIGH/URGE ASSOCIATE NT S SEVERITY EMERGENCY 47590 RAMÓN 0 0 [facility] DEPARTMEN INC T VISIT LOW/MODER SEVERITY HOSPITAL UNIVERSIT - 0 0 Y OUTPATIEN HOSPITAL T EMERGENCY 07458 GRACIE MOHAN 0 0 MEDICAL GAIL DEPARTMEN SERV T VISIT FOUNDATIO MODERATE SEVERITY EMERGENCY 55410 UNIVERSIT 0 0 Y [facility] T VISIT LOW/MODER SEVERITY EMERGENCY 28655 YARIEL OCHOA, DEPT 0 0 EMERGENCY [facility] VISIT SERVICES HIGH SEVERITY& ASSOCIATE THREAT S FUNCJ EMERGENCY 77186 RAMÓN 0 0 MEM HOS[facility] DEPARTMEN INC T VISIT LOW/MODER SEVERITY HOSPITAL RAMÓN - 0 0 [facility] OUTPATIEN INC T EMERGENCY 40157 RAMÓN 0 0 [facility]OS[facility] DEPARTMEN INC T VISIT LOW/MODER SEVERITY EMERGENCY 64379 YARIEL GIL 0 0 EMERGENCY [facility] DEPARTMEN SERVICES T VISIT MODERATE SEVERITY HOSPITAL RAMÓN - 0 0 [facility] OUTPATIEN INC T HOSPITAL RAMÓN - 0 0 [facility] OUTPATIEN INC T EMERGENCY 61968 RAMÓN 0 0 [facility]OS[facility] DEPARTMEN INC T VISIT LIMITED/M INOR PROB EMERGENCY 79625 YARIEL OCHOA, 0 0 EMERGENCY [facility] DEPARTMEN SERVICES T VISIT HIGH/URGE ASSOCIATE NT S SEVERITY EMERGENCY 35222 [place] 0 0 [facility] T VISIT MODERATE SEVERITY EMERGENCY 26425 YARIEL WATT 0 0 EMERGENCY DEPARTMEN SERVICES T VISIT HIGH/URGE NT SEVERITY HOSPITAL [place] - 0 0 [facility] T EMERGENCY 32046 YARIEL CHARLES, 0 0 EMERGENCY [facility] DEPARTMEN SERVICES T VISIT MODERATE ASSOCIATE SEVERITY S EMERGENCY 18891 YARIEL BARROSO, 0 0 EMERGENCY [facility] M DEPARTMEN SERVICES T VISIT HIGH/URGE ASSOCIATE NT S SEVERITY HOSPITAL [place] - 0 0 [facility] T EMERGENCY 10487 [facility], 0 0 JEFFY SARAH DEPARTMEN EMERGENCY A T VISIT PHYS INC MODERATE SEVERITY EMERGENCY 91122 [facility], 0 0 JEFFY Mills DEPARTMEN EMERGENCY T VISIT PHYS INC MODERATE SEVERITY OFFICE 75187 MIGDALIA NEGRON, [facility] 0 0 BOY BRUNSON Kai T NEW 30 MINUTES EMERGENCY 05376 [facility] SU[facility], 0 0 JEFFY Mills DEPARTMEN EMERGENCY T VISIT PHYS INC MODERATE SEVERITY EMERGENCY 23277 [facility] 0 0 HOSPITAL DEPARTMEN T VISIT MODERATE SEVERITY HOSPITAL [facility] - 0 0 [facility] 63212 [facility], 0 0 JEFFY Quinn DEPARTMEN EMERGENCY T VISIT SERV PC HIGH/URGE NT SEVERITY HOSPITAL [place] - 0 0 [facility] T EMERGENCY 96611 [place] 0 0 [facility] T VISIT MODERATE SEVERITY EMERGENCY 42384 [facility], 0 0 JEFFY HUERTA DO, DEPARTMEN EMERGENCY NAREN O T VISIT PHYS INC MODERATE SEVERITY EMERGENCY 52593 [facility] 0 0 BAYLEE BARDALES DEPARTMEN EMERGENCY M T VISIT PHYS INC MODERATE SEVERITY EMERGENCY 56127 [facility], 0 0 JEFFY HUERTA DO, DEPARTMEN EMERGENCY NAREN O T VISIT PHYS INC MODERATE SEVERITY HOSPITAL [place] - 0 0 [facility] T EMERGENCY 01080 IA ENEIDA, 0 0 MEDICAL YOSELIN C DEPARTMEN SERV T VISIT FOUNDATIO LOW/MODER SEVERITY HOSPITAL UNIVERSIT - 0 0 [facility] T EMERGENCY 15749 UNIVERSIT 0 0 Y [facility] T VISIT LIMITED/M INOR PROB EMERGENCY 42523 YARIEL BARROSO, 0 0 EMERGENCY VALERIE M [facility] SERVICES T VISIT MODERATE ASSOCIATE SEVERITY S [facility]22 [facility] JEFFY DEPARTMEN EMERGENCY T VISIT PHYS INC MODERATE SEVERITY [facility] 64555 [facility] 0 0 JEFFY DEPARTMEN EMERGENCY T VISIT PHYS INC MODERATE SEVERITY EMERGENCY 99247 [facility] CELLAROSI 0 0 JEFFY - YORBA, [facility] EMERGENCY BLANCO T VISIT PHYS INC M MODERATE SEVERITY EMERGENCY 29222 UNIVERSIT 0 0 Y [facility] T VISIT MODERATE SEVERITY HOSPITAL UNIVERSIT - 0 0 Y [facility] T EMERGENCY 21114 [facility] 0 0 JEFFY MERVIN M [facility] EMERGENCY T VISIT PHYS INC MODERATE SEVERITY HOSPITAL [place] - 0 0 [facility] T EMERGENCY 19926 [place] 0 0 [facility] T VISIT LOW/MODER SEVERITY HOSPITAL [place] - 0 0 [facility] T EMERGENCY 07770 [facility] 0 0 MEDICAL I, MORELIA DEPARTMEN SERV A T VISIT FOUNDATIO MODERATE SEVERITY EMERGENCY 72192 [place] 0 0 [facility] T VISIT LOW/MODER SEVERITY EMERGENCY 58116 [facility], T 9 9 JEFFY [facility] EMERGENCY T VISIT PHYS INC MODERATE SEVERITY HOSPITAL [place] - 9 9 [facility] T EMERGENCY 45950 [place] 9 9 [facility] T VISIT LOW/MODER SEVERITY EMERGENCY 13970 [facility], 9 9 JEFFY NAREN O DEPARTMEN EMERGENCY T VISIT PHYS INC MODERATE SEVERITY EMERGENCY 92456 [facility], 9 9 JEFFY DANIELA Mills DEPARTMEN EMERGENCY T VISIT PHYS INC MODERATE SEVERITY EMERGENCY 01345 [facility] 9 9 [facility] LOW/MODER SEVERITY HOSPITAL [facility] - 9 9 [facility] T EMERGENCY 47838 [facility], 9 9 JEFFY HIEU DEPARTMEN EMERGENCY T VISIT PHYS INC HIGH/URGE NT SEVERITY EMERGENCY 24421 [facility] CHU[facility], T 9 9 JEFFY [facility] EMERGENCY T VISIT PHYS INC MODERATE SEVERITY EMERGENCY 67779 [facility], 9 9 JEFFY SMITH [facility] EMERGENCY A T VISIT PHYS INC MODERATE SEVERITY HOSPITAL [place] - 9 9 [facility] T HOSPITAL [place] - 9 9 [facility] T EMERGENCY 59368 [place] 9 9 [facility] T VISIT LOW/MODER SEVERITY EMERGENCY 45381 [facility], 9 9 JEFFY SMITH [facility] EMERGENCY A T VISIT PHYS INC MODERATE SEVERITY OFFICE 29520 [facility] 9 9 , QUITA DEVLIN ION NEW/ESTAB PATIENT 40 MIN [facility] 11284 [facility] JEFFY , [facility] EMERGENCY SANJOYDEB T VISIT PHYS INC MODERATE SEVERITY HOSPITAL [facility] - 9 9 [facility] T EMERGENCY 47230 [facility] 9 9 [facility] VISIT LOW/MODER SEVERITY HOSPITAL DAPHNE - 9 9 [facility] OUTPATIEN INC T EMERGENCY 08820 DAPHNE 9 9 [facility] INC T VISIT LOW/MODER SEVERITY EMERGENCY 64712 YARIEL OCHOA, 9 9 EMERGENCY DANIELA S [facility] SERVICES T VISIT MODERATE ASSOCIATE SEVERITY S EMERGENCY 99654 [facility], 9 9 JEFFY PRIETO DEPARTMEN EMERGENCY T VISIT PHYS INC MODERATE SEVERITY EMERGENCY 39466 [facility], 9 9 JEFFY DANIELA Mills DEPARTMEN EMERGENCY T VISIT PHYS INC MODERATE SEVERITY HOSPITAL RAMÓN - 9 9 [facility] OUTPATIEN INC T EMERGENCY 38309 RAMÓN 9 9 MEM [facility] DEPARTMEN INC T VISIT LOW/MODER SEVERITY EMERGENCY 81718 YARIEL OCHOA, 9 9 EMERGENCY [facility] DEPARTMEN SERVICES T VISIT MODERATE ASSOCIATE SEVERITY S HOSPITAL [facility] - 9 9 HOSPITAL OUTPATIEN T EMERGENCY 80142 [facility] 9 9 HOSPITAL DEPARTMEN T VISIT LOW/MODER SEVERITY EMERGENCY 21385 [facility], 9 9 JEFFY Kai Martinez DEPARTMEN EMERGENCY T VISIT PHYS INC MODERATE SEVERITY EMERGENCY 59719 [facility] 9 9 HOSPITAL DEPARTMEN T VISIT LOW/MODER SEVERITY EMERGENCY 49509 [facility], 9 9 JEFFY DORIS Freeman DEPARTMEN EMERGENCY T VISIT PHYS INC MODERATE SEVERITY HOSPITAL [facility] - 9 9 HOSPITAL OUTPATIEN T EMERGENCY 51866 [facility], 9 9 JEFFY SARAH DEPARTMEN EMERGENCY A T VISIT PHYS INC MODERATE SEVERITY EMERGENCY 76451 YARIEL OCHOA, 9 9 EMERGENCY [facility] DEPARTMEN SERVICES T VISIT MODERATE ASSOCIATE SEVERITY S HOSPITAL RAMÓN - 9 9 [facility] OUTPATIEN INC T EMERGENCY 53115 RAMÓN 9 9 [facility] DEPARTMEN INC T VISIT LOW/MODER SEVERITY EMERGENCY 68881 [place] 9 9 [facility]IS[facility] MODERATE SEVERITY [facility] 9 [facility] T EMERGENCY 55370 RAMÓN 9 9 MEM HOSP DEPARTMEN INC T VISIT LOW/MODER SEVERITY EMERGENCY 07555 YARIEL OCHOA, 9 9 EMERGENCY [facility] SERVICES T VISIT HIGH/URGE ASSOCIATE NT S SEVERITY HOSPITAL RAMÓN - 9 9 [facility] OUTPATIEN INC T [facility] 73021 [facility] 9 9 JEFFY [facility] EMERGENCY T VISIT PHYS INC MODERATE SEVERITY OFFICE 89063 RAMON NAVARRO OUTPATIEN 9 9 LYNDSAY G LYNDSAY G T VISIT [address] [facility] 9 9 [facility] EMERGENCY T VISIT PHYS INC MODERATE SEVERITY HOSPITAL JENNIFER - 9 9 [facility] T EMERGENCY 21607 RODRIGUEZON 9 9 [facility] T VISIT LOW/MODER SEVERITY EMERGENCY 07943 [facility], 9 9 JEFFY [facility] EMERGENCY T VISIT PHYS INC MODERATE SEVERITY EMERGENCY 55475 RAMÓN 9 9 MEM HOSP DEPARTMEN INC T VISIT LOW/MODER SEVERITY EMERGENCY 72611 YARIEL OCHOA, 9 9 EMERGENCY [facility] SERVICES T VISIT MODERATE ASSOCIATE SEVERITY S HOSPITAL RAMÓN - 9 9 [facility] OUTPATIEN INC T EMERGENCY 05498 [facility] CH[facility], T 9 9 [facility] EMERGENCY T VISIT PHYS INC MODERATE SEVERITY EMERGENCY 12382 RAMÓN 9 9 MEM HOSP DEPARTMEN INC T VISIT LOW/MODER SEVERITY HOSPITAL RAMÓN - 9 9 [facility] OUTPATIEN INC T EMERGENCY 79190 [facility] 9 9 [facility] EMERGENCY T VISIT PHYS INC MODERATE SEVERITY EMERGENCY 46641 YARIEL MUÑOZ, DEPT 9 9 EMERGENCY GUFFEY VISIT SERVICES HIGH SEVERITY& ASSOCIATE THREAT S FUNCJ EMERGENCY 39776 RAMÓN 9 9 MEM HOSP DEPARTMEN INC T VISIT MODERATE SEVERITY HOSPITAL RAMÓN - 9 9 [facility] OUTPATIEN INC T EMERGENCY 40285 [facility] 9 9 [facility] T VISIT LOW/MODER SEVERITY HOSPITAL UNIVERSIT - 9 9 [facility] T EMERGENCY 06666 UNIVERSIT 9 9 [facility] T VISIT LIMITED/M INOR PROB EMERGENCY 06049 [facility] RAND[facility], 9 9 JEFFY Dominguez [facility] EMERGENCY T VISIT PHYS INC MODERATE SEVERITY OFFICE 01619 [facility] 9 9 , QUITAQUITA Sawyer ION NEW/ESTAB PATIENT 60 MIN [facility]OSPITAL [facility] - 9 9 [facility] T EMERGENCY 40153 [facility], 9 9 JEFFY Hdz [facility] EMERGENCY T VISIT PHYS INC MODERATE SEVERITY EMERGENCY 31875 [facility] 9 9 [facility] T [facility]IT LIMITED/M INOR PROB HOSPITAL [facility] - 9 9 [facility] T EMERGENCY 38272 [facility] 9 9 [facility] T VISIT MODERATE SEVERITY HOSPITAL RAMÓN - 9 9 [facility] OUTPATIEN INC T EMERGENCY 05269 [facility] 9 9 [facility] T VISIT MODERATE SEVERITY EMERGENCY 39614 [facility], 9 9 JEFFY Mckeon [facility] EMERGENCY T VISIT PHYS INC LOW/MODER SEVERITY EMERGENCY 06200 YARIEL RICHARDSON, 9 9 EMERGENCY VALERIE Gomez [facility] SERVICES T VISIT MODERATE ASSOCIATE SEVERITY S EMERGENCY 28628 RAMÓN 9 9 MEM [facility] T VISIT LIMITED/M INOR PROB HOSPITAL RAMÓN - 9 9 [facility] OUTPATIEN INC T EMERGENCY 08330 [facility] BOY 9 9 [facility] VISIT PHYS INC MODERATE SEVERITY EMERGENCY 56455 [facility] 9 9 [facility] VIS[facility] LIMITED/M [facility] PROB H[facility] - 9 9 [facility] T EMERGENCY 13883 [facility], 9 9 JEFFY Mills DEPARTMEN EMERGENCY T VISIT PHYS INC MODERATE SEVERITY EMERGENCY 18144 [facility] 9 9 [facility] T VISIT LIMITED/M INOR PROB HOSPITAL [facility] - 9 9 [facility] T EMERGENCY 15416 [place] [facility], 9 9 CORBIN Martinez [facility] VISIT FOUNDATIO MODERATE SEVERITY [facility] 9 [facility] T EMERGENCY 10154 [place] 9 9 [facility] T VISIT LOW/MODER SEVERITY EMERGENCY 68188 [facility], 9 9 JEFFY Mckeon DEPARTMEN EMERGENCY T VISIT PHYS INC MODERATE SEVERITY EMERGENCY 87164 [facility], 9 9 JEFFY Hdz DEPARTMEN EMERGENCY T VISIT PHYS INC MODERATE SEVERITY EMERGENCY 43931 [facility], 9 9 JEFFY Freeman DEPARTMEN EMERGENCY T VISIT PHYS INC MODERATE SEVERITY [facility] [place] - 9 9 [facility] UNIVERSIT - 9 9 [facility] T OFFICE 15701 RAMON NAVARRO, [facility] 9 9 LYNDSAY G LYNDSAY G T VISIT 15 MINUTES HOSPITAL [facility] - 9 9 [facility] T EMERGENCY 79880 [facility] 9 9 [facility] T VISIT HIGH/URGE NT SEVERITY EMERGENCY 27515 [facility] 8 8 [facility] T VISIT PHYS INC MODERATE SEVERITY HOSPITAL [facility] - 8 8 N [facility] OFFICE 23599 NAVARRO, NAVARRO, CONSULTAT 8 8 LNYDSAY G LYNDSAY G ION NEW/ESTAB PATIENT 60 MIN OFFICE 36227 CARDIOLOG DINO, CONSULTAT 8 8 Y EMILIE Mckeon ION ASSOCIATE NEW/ESTAB S OF PATIENT JENNIFER 60 MIN HOSPITAL RAMÓN - 8 8 [facility] T [facility]ERGENC[facility] 23725 [facility] 8 8 [facility] T VISIT LOW/MODER SEVERITY EMERGENCY 81143 [facility] DE[facility] 8 8 JEFFY - ABDIAS, VISIT EMERGENCY [facility] M SEVERITY& THREAT FUNCJ EMERGENCY 12405 [facility] 8 8 N [facility] T VISIT HOSPITAL HIGH/URGE NT SEVERITY HOSPITAL [facility] - 8 8 N [facility] EM[facility] 08990 [facility], 8 8 JEFFY SARAH [facility] EMERGENCY A T VISIT PHYS INC MODERATE SEVERITY HOSPITAL [facility] - 8 8 N [facility] 27576 [facility] 8 8 N [facility] VISIT HOSPITAL LOW/MODER SEVERITY OFFICE 64652 Timur AMIN CONSULTAT 8 8 MEDICAL D ION SERV NEW/ESTAB FOUNDATIO PATIENT 40 MIN EMERGENCY 17053 [facility], DEPT 8 8 JEFFY SARAH VISIT EMERGENCY A HIGH PHYS INC SEVERITY& THREAT FUNCJ EMERGENCY 32871 [facility] 8 8 Y [facility] T VISIT LIMITED/M INOR PROB EMERGENCY 04133 GRACIE WELLS 8 8 MEDICAL , C A [facility] SERV T VISIT FOUNDATIO MODERATE SEVERITY HOSPITAL [facility] - 8 8 Y [facility] T EMERGENCY 67247 UN[facility] 8 8 Y [facility] T VISIT HIGH/URGE NT SEVERITY HOSPITAL [facility] - 8 8 Y [facility] T EMERGENCY 85315 GRACIE LANGE 8 8 MEDICAL IMORELIA DEPARTMEN SERV A T VISIT FOUNDATIO MODERATE SEVERITY EMERGENCY 63958 JOESPH HERMOSILLO, DEPT 8 8 JEFFY KIDD VISIT EMERGENCY HIGH PHYS INC SEVERITY& THREAT FUNCJ
--- OUTSIDE RECORDS SUMMARY | 2017-03-05 03:48 | External Medical Summary Rpt | CCD ---
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 OF ANKLE N EMERGENCY [...] AND ABSCESS [facility] OF TRUNK INC 83033 PAIN IN 12-29-2008 [facility] [place] JOINT, RADIOLOGY ANKLE AND FOOT 7248 OTHER 12-01-2008 [facility] REFERABLE TO BACK 7821 RASH AND 11-26-2008 [facility] OTHER N EMERGENCY NONSPECIFIC PHYS INC SKIN ERUPTION 28759 OTHER 11-21-2008 [facility] CANDIDIASIS [facility] OF OTHER INC SPECIFIED SITES 6929 CONTACT 11-21-2008 [facility] DERMATITIS& EMERGENCY OTHER SERVICES [facility] DUE [facility] UNSPEC CAUSE E8809 ACCIDENTAL 11-13-2008 [facility] FALL ON OR N EMERGENCY FROM OTHER PHYS INC STAIRS OR STEPS 5259 UNSPECIFIED 10-20-2008 [facility] DISORDER N EMERGENCY TEETH&SUPPO PHYS INC RTING STRUCTURES 5206 DISTURBANCE 10-19-2008 [facility] S IN TOOTH [facility] ERUPTION INC 36085 UNSPECIFIED 10-05-2008 [facility] DENTAL EMERGENCY CARIES SERVICES [facility] 7880 RENAL COLIC 09-22-2008 [facility] 5693 HEMORRHAGE 09-02-2008 [facility] ANUS 61112 NON-HEALING 09-01-2008 SHANISTDEA, SURGICAL QUITA WOUND NEC 5289 OTHER&UNSPE 08-20-2008 [facility] CIFIED N EMERGENCY DISEASES PHYS INC THE ORAL SOFT TISSUES 5650 ANAL 08-16-2008 [facility] FISSURE N EMERGENCY PHYS INC 92314 ULCER OF 08-16-2008 [facility] ANUS AND EMERGENCY RECTUM SERVICES ASSOCIATES 7272 UNSPECIFIED 08-13-2008 [facility] V5877 AFTERCARE 08-13-2008 [facility] FOLLOW N EMERGENCY SURGERY PHYS INC SKIN&SUBCUT TISSUE NEC 566 ABSCESS OF 07-27-2008 [facility] REGIONS 8469 UNSPECIFIED 05-18-2008 LYNDSAY NAVARRO SITE G SACROILIAC [place] [address] UNSPECIFIED 05-17-2008 [facility] [place] INC CYSTIC KIDNEY DISEASE 2720 PURE 04-30-2008 OFFICE [facility] HYPERCHOLES DIAGNOSTIC TEROLEMIA SERVICES 11162 PRECORDIAL 04-30-2008 OFFICE [facility] PAIN DIAGNOSTIC SERVICES 01106 OTHER CHEST 04-21-2008 [facility] V173 FAMILY 04-21-2008 [facility] HISTORY OF [facility] HEART DISEASE 4553 EXTERNAL 04-14-2008 [...] 10 5- 9- 00 06 TO ve NM 26 20 20 09 WN IL 90 [...] ve LO 19 20 20 09 WN NM 70 17 17 33 AM 0 07 [...] 10 8- 1- 00 06 TO ve NM 26 20 20 09 WN IL 90 [...] ve LO 19 20 20 09 WN NM 70 17 17 20 AM 0 95 [...] 10 3- 1- 00 06 TO ve NM 26 20 20 07 WN IL 90 17 17 97 8 07 PH 20 AR MA MG CY TA OF BL ET CY NT HI AN A ES 68 06 07 15 30 00 HO Ac CI 00 -2 -2 .0 00 ME ti TA 10 3- 1- 00 06 TO ve LO 19 20 20 07 WN NM 70 17 17 97 AM 3 06 PH AR 20 MA CY MG OF TA BL CY ET NT HI AN A CY 10 05 06 30 30 00 HO Ac CL 70 -3 -2 .0 00 ME ti OB 20 0- 3- 00 06 TO ve EN 00 20 20 08 WN ZA 60 17 17 78 NM 1 58 PH IN AR E MA 5 CY MG OF TA BL CY ET NT HI AN A ES 68 05 06 15 30 00 HO Ac CI 00 -2 -1 .0 00 ME ti TA 10 2- 6- 00 06 TO ve LO 19 20 20 07 WN NM 70 17 17 97 AM 3 06 [...] NO 10 2- 6- 06 TO ve NM 26 20 20 07 WN IL 90 [...] NO 10 1- 9- 06 TO ve NM 26 20 20 07 WN IL 90 17 17 97 8 07 PH 20 AR MA MG CY TA OF BL ET CY NT HI AN A ES 68 04 05 15 30 00 HO Ac CI 00 -2 -1 .0 00 ME ti TA 10 - 9- 06 TO ve LO 19 20 20 07 WN NM 70 17 17 97 AM 3 06 [...] 10 0- 4- 00 06 TO ve NM 26 20 20 07 WN IL 90 17 17 97 8 07 PH 20 AR MA MG CY TA OF BL ET CY NT HI AN A ES 68 03 04 15 30 00 HO Ac CI 00 -2 -1 .0 00 ME ti TA 10 0- 4- 00 06 TO ve LO 19 20 20 07 WN NM 70 17 17 97 AM 3 06 [...] 1 34 CV CE S TA PH OR AR NO MA PH CY EN LL [...] 10 5- 0- 00 06 TO ve NM 26 20 20 07 WN IL 90 17 17 97 8 07 PH 20 AR MA MG CY TA OF BL ET CY NT HI AN A ES 68 02 03 15 30 00 HO Ac CI 00 -1 -1 .0 00 ME ti TA 10 5- 0- 00 06 TO ve LO 19 20 20 07 WN NM 70 17 17 97 AM 3 06 [...] 50 8- 0- 00 06 TO ve NM 62 20 20 07 WN IL 01 17 17 97 0 07 PH 20 AR MA MG CY TA OF BL ET CY NT HI AN A ES 68 01 02 15 30 00 HO Ac CI 00 -1 -1 .0 00 ME ti TA 10 8- 0- 00 06 TO ve LO 19 20 20 07 WN NM 70 17 17 97 AM 3 06 [...] 12 01 20 10 00 HO Ac NM 57 -3 -2 .0 00 ME ti [...] N ZA 11 11 11 MA RY NM 0 CY AN IN # A E [...] 40 11 11 MA E- 1 CY OR IB # CH UP AE RO 02 L FE 33 N 2 7. 5- 20 0 NM 00 05 05 0 25 5 CV 49 CH Ac ED 59 -1 -1 .0 S 13 ES ti NI 15 6- 6- 00 PH 66 TN ve SO 44 20 20 AR UT NE 20 11 11 MA 1 CY OR 10 # CH AE MG 02 L [...] 0 20 10 CV 41 CE Ac NM 09 -2 -2 .0 S 86 LL [...] UT 70 10 10 MA 5 CY OR # CH AE 02 L 33 2 CE 68 04 04 20 5 CV 35 CH Ac PH 18 -0 -0 .0 S 32 ES ti AL 00 8- 8- 00 PH 73 TN ve EX 12 20 20 AR UT IN 20 10 10 MA 2 CY OR 50 # CH 0 AE MG 02 [...] 5 UG DA NI IN EL C NM 00 03 03 0 12 4 WI 32 GR Ac OM 60 -2 -2 0. LS 93 AB ti ET 31 4- 4- 00 ON 18 QUINTERO ve QUINTERO 58 20 20 0 M ZI [address] HONG NE 8 UG NA -D M IN SY C RU P NM 50 03 03 0 12 2 WI [...] CE 1 PH TH TA AR OM OR MA NO CY PH # EN 10 7. 04 32 5 OX 00 02 02 0 10 2 WA 22 DA Ac YC 59 -2 -2 .0 L- 17 LE ti OD 10 8- 8- 00 MA 56 ve ON 93 20 20 RT 1 II -A 30 10 10 CE 1 PH TH TA AR OM OR MA NO CY PH # EN 10 7. 04 32 5 00 02 02 00 40 10 WI 32 HU Ac 07 -1 -2 .0 LS 51 BE ti 46 1- 6- 00 ON 49 R ve 32 20 20 JU [address] MCDANIEL 3 UG A M IN C NM 50 02 02 00 12 4 WI 32 CE Ac OM 38 -1 -2 0. LS 54 LL ti ET 30 4- 6- 00 ON 28 AR ve QUITNERO 80 20 20 0 OS ZI 41 [...] 7- 0- 00 ON 56 D ve NM 00 20 20 MU ED 10 09 [...] 00 10 5 WI 27 WI Ac NM 11 -1 -2 .0 LS 08 CK [...] RT 8 T CI 31 09 09 OR N 6 PH CH HC AR AE [...] 20 20 RT 7 64 08 09 OR 8 PH CH AR AE MA L CY S #5 91 AC 00 12 01 00 9. 3 WA 44 GA Ac ET 09 -1 -0 00 L- 72 IN ti AM 30 5- 1- 0 MA 89 EY ve IN 15 20 20 RT 2 OP 01 08 09 OR HE 0 PH CH N- AR AE [...] G0483 [facility] DEFINITV 7 [facility] DR ID [facility]INGS METH P DAY /MORE DR CL DRUG TEST 28977 [facility] T[facility] PRSMV 7 [facility] INSTRMNT [facility]INGS CHEMISTRY ANALYZERS ECG 12918 [facility] ROUTINE 7 EMERGENCY ECG PHYS PSC W/LEAST 12 LDS I&R ONLY CUL BACT 79111 [facility] AEROBIC 7 [facility] ADDL [facility] METHS DEFINITIV E EA ISOL CULTURE 45076 [facility] BACTERIAL 7 [facility]INGS QUANTTATI VE COLONY COUNT URINE CULTURE 86981 [facility] BCT 7 [facility] ISOL&PRSM [facility] PTV ID ISOLATE EA URINE SUSCEPTIB 43052 [facility] LTY STDY 7 [facility] ANTIMICRB HOLDINGS HOLDINGS IAL MICRO/AGA R DILUTJ RADEX HIP 55421 [facility] MELGAR 7 [facility] UNIL[place]A INC INC L WITH PELVIS 2-3 VIEWS RADEX 20180 RAMÓN MELGAR SPINE 7 [facility] LUMBOSACR INC INC AL MINIMUM [address] UPPER 62269 [facility] [place] [facility] EXTREMITY 7 RADIOLOGY W/O CONTRAST MATERIAL RADIOLOGI 67019 RAMÓN MELGAR C 7 [facility] EXAMINATI INC INC ON CHEST SINGLE VIEW FRONTAL RADIOLOGI 51611 RAMÓN MELGAR C 7 [facility] EXAMINATI INC INC ON NECK SOFT TISSUE RADEX 95306 RAMÓN MELGAR ABDOMEN 1 7 [facility] INC INC ANTEROPOS TERIOR VIEW DUP-SCAN 81260 GRACIE GARCIAS ARTL RAIZA 7 MEDICAL CORIE ABDL/PEL/ SERV SCROT&/[place] [address] GRACIE PARKSIRA SCROTUM & 7 MEDICAL COR[facility] CONTENTS SERV FOUNDATIO N LIPID 73016 [facility] T[facility] PANEL 7 [facility] ALBUMIN 31478 JENNIFER GRUBER URINE 7 PHYSICIAN MICROALBU PRACTICE MIN L SEMIQUANT ITATIVE COLLECTIO 05831 JENNIFER GRUBER N VENOUS 7 PHYSICIAN BLOOD PRACTICE VENIPUNCT L URE ALBUMIN 95399 [facility] T[facility] URINE 7 VEL VEL MICROALBU [facility] HOLDINGS MIN QUANTIATI VE ECG 32501 HERNÁNJASVIRLENIN ALLYN ROUTINE 7 PHYSICIAN ECG PRACTICE W/LEAST L 12 LDS W/I&R COMPREHEN 38812 [facility] SIVE 7 VEL VEL METABOLIC [facility] HOLDINGS PANEL CREATININ 44348 [facility] T[facility] E OTHER 7 VEL VEL SOURCE HOLDINGS HOLDINGS RADEX 33920 [facility] [place] TRISH ABDOMEN 1 7 RADIOLOGY ANTEROPOS TERIOR VIEW ONDANSETR Q0162 [facility] ON 1 MG 6 [facility] ORL NOT E E EXCEED 48 [facility] HR DOSE REG BLOOD 99726 [facility] COUNT 6 [facility] COMPLETE E E AUTO&AUTO HOSPIT[facility] [place] [address] [facility] LIPASE 6 [facility]ALTHCAR E E HOSPITALS HOSPITALS COMPREHEN 53165 [facility] SIVE 6 [facility] METABOLIC E E PANEL HOSPITALS HOSPITALS COMPREHEN 18143 [facility] SIVE 6 [facility]ALTH[facility] METABOLIC E [place] [address] [facility] LACTATE 6 [facility] E [facility]IT[facility] INJECTION J1100 [facility] 6 [facility]ALTHCAR HEALTHCAR DEXAMETHO E E SONE HOSPITALS HOSPITALS SODIUM PHOSPHATE 1 [place] [address] [facility] LIPASE 6 [facility] HEALTHCAR E E HOSPITALS HOSPITALS BLOOD 60436 [facility] COUNT 6 [facility] HEALTHCAR COMPLETE E E AUTO&AUT[place] [address] [place] GARCIAS ABDOMEN & 6 MEDICAL CORIE PELVIS SERV [place] [address] [facility] [place] KISHIM[place] ABDOMEN & 6 RADIOLOGY PELVIS W/O CONTRAST MATERIAL DRUG TST G0477 RAMÓN MELGAR PRESUMP;C 6 [facility] PBL BEING INC [place] [address] P&C LABS, [place] SURG 6 [facility] PATHOLOGY GROSS&CONCHIS ROSCOPIC EXAM ORCHIECTO 42684 [facility] MY SIMPLE 6 [place] KIEL ADULT & SCROTAL/I PED NGUINAL APPROACH ANESTHESI 40093 [place] HAI ROLO A MALE 6 ANESTHESI GENITALIA A GROUP INCL PS OPEN URETHRAL PX ECG 27724 RAMÓN EWING ROUTINE 6 [facility] W/LEAST P 12 LDS I&R ONLY BLOOD 75259 RAMÓN MELGAR COUNT 6 [facility] COMPLETE INC INC AUTO&AUTO DIFRNTL WBC URNLS DIP 52078 RAMÓN MELGAR 6 [facility] STICK/TAB INC INC LET REAGENT AUTO MICROSCOP Y ECG 10359 RAMÓN MELGAR ROUTINE 6 [facility] ECG INC INC W/LEAST 12 LDS TRCG ONLY W/O I&R CULTURE 56992 RAMÓN MELGAR BACTERIAL 6 [facility] INC INC QUANTTATI VE COLONY COUNT URINE COLLECTIO 04268 RAMÓN MELGAR N VENOUS 6 [facility] BLOOD INC INC VENIPUNCT URE COMPREHEN 44102 RAMÓN MELGAR SIVE 6 [facility] METABOLIC INC INC PANEL COLLECTIO 33820 RAMÓN MELGAR N VENOUS 6 [facility] BLOOD INC INC VENIPUNCT URE GONADOTRO 69901 RAMÓN MELGAR PIN 6 [facility] LUTEINIZ[place] [address] RAMÓN MELGAR PROLACTIN 6 [place] [address] RAMÓN MELGAR TESTOSTER 6 [facility] ONE TOTAL INC INC PROSTATE G0103 RAMÓN MELGAR CANCER 6 [facility] SCREENING INC INC ; PSA TEST DRUG TST G0477 RAMÓN MELGAR PRESUMP;C 6 [facility] PBL BEING INC INC READ DC OPT OBV ONLY COMPREHEN 58775 RAMÓN MELGAR SIVE 6 [facility] [place] [address] RAMÓN MELGAR ABDOMEN & 6 [facility] PELVIS INC INC W/O CONTRAST MATERIAL URNLS DIP 29221 RAMÓN MELGAR 6 [facility] STICK/TAB INC INC LET REAGENT AUTO MICROSCOP Y BLOOD 87703 RAMÓN MELGAR COUNT 6 [facility] COMPLETE INC INC AUTO&AUTO DIFRNTL WBC SIMPLE 66396 [facility] CYSTOMETR 6 [place] [facility] OGRAM ADULT & PED COMPLEX 52509 C[facility] CENTRAL UROFLOMET 6 [facility] & PED PED IMER 01963 [facility] POST-VOID 6 [place] [facility] ING ADULT & RESIDUAL PED URINE&/BL ADDER CAP CYSTO 36103 [facility] CALIBRATI 6 [place] [facility] ON DILAT ADULT & URTL PED STRIX/HEIDI NOSIS DRUG TST G0477 [facility] PRESUMP;C 6 [place] KIEL PBL BEING ADULT & READ DC PED OPT OBV ONLY URNLS DIP 96154 RAMÓN MELGAR 6 [facility] STICK/TAB INC INC LET REAGENT AUTO MICROSCOP Y ADMN SET A7003 JANEL ISLAS SM VOL 6 HOME HOME NONFILTR MEDICAL MEDICAL PNEUMAT EQUIPME EQUIPME NEBULIZR DISPBL THERAPEUT 34280 [facility] 5 Y [facility] TIC/DX INJECTION SUBQ/[place] [address] RAMÓN MELGAR LIPASE 5 [facility] INC INC URNLS DIP 08261 RAMÓN MELGAR 5 [facility] STICK/TAB INC INC LET REAGENT AUTO MICROSCOP Y BLOOD 54211 RAMÓN MELGAR COUNT 5 [facility] COMPLETE INC INC AUTO&[place] [address] RAMÓN MELGAR ABDOMEN & 5 [facility] PELVIS INC INC W/[place] [address] RAMÓN MELGAR AMYLASE 5 [facility] INC INC COMPREHEN 44967 RAMÓN MELGAR SIVE 5 [facility] METABOLIC INC INC PANEL MRI 16358 SHEBA OAKLEY SPINAL 5 MEDICAL MARIO CANAL IMAGING LUMBAR ASS W/O CONTRAST MATERIAL RADIOLOGI 52087 SHEBA BEINEKE C 5 MEDICAL IVANNA EXAMINATI IMAGING ON EYE ASS DETECT FOREIGN BODY RADEX 98375 RAMÓN MELGAR ORBITS 5 [facility] COMPLETE INC INC MINIMUM 4 VIEWS 3D 73378 SHEBA [place] RENDERING 5 MEDICAL MARIO W/INTERP IMAGING & ASS POSTPROCE SS SUPERVISI ON COLLECTIO 75021 RAMÓN MELGAR N VENOUS 5 [facility] BLOOD INC INC VENIPUNCT URE HEMOGLOBI 03071 RAMÓN MELGAR N 5 [facility] GLYCOSYLA INC INC THERESA A1C BASIC 87313 RAMÓN MELGAR METABOLIC 5 [facility] [place] [address] RAMÓN MELGAR FREE 5 [facility] [place] [address] RAMÓN MELGAR THYROID 5 [facility] STIMULATI INC INC NG HORMONE TSH RADEX 08228 SHEBA OAKLEY FINGR 5 MEDICAL MARIO MINIMUM 2 IMAGING VIEWS ASS RADIOLOGI 78013 [facility] OAKLEY C 4 MEDICAL MARIO EXAMINATI IMAGING ON CHEST ASS SINGLE VIEW FRONTAL RADIOLOGI 70891 SHEBA OAKLEY C 4 MEDICAL MARIO EXAMINATI IMAGING ON PELVIS ASS 1/[address] [place] [address] SHEBA OAKLEY ABDOMEN & 4 MEDICAL MARIO PELVIS IMAGING W/O ASS CONTRAST MATERIAL RADEX 04645 SHEBA O[place]LEY SPINE 4 MEDICAL MARIO LUMBOSACR IMAGING AL ASS MINIMUM 4 VIEWS RADIOLOGI 28623 SHEBA OAKLEY C EXAM 4 MEDICAL MARIO CHEST 2 IMAGING VIEWS ASS FRONTAL&L ATERAL KNEE L1830 [employer] BREG INC. ORTHOSIS 4 IMMOBLIZE R CANVAS LONGTUDNL PREFAB RADEX 79465 RAMÓN MELGAR SHOULDER 4 [facility] COMPLETE INC INC MINIMUM 2 VIEWS INCISION 18608 KANDI MILES & 4 [place] [address] SIMI [place]TH ABDOMEN & 4 PELVIS W/O CONTRAST MATERIAL NEBULIZER E0570 JANEL ISLAS WITH 4 HOME HOME COMPRESSO MEDICAL MEDICAL R EQUIPME EQUIPME ADMN SET A7003 YOUR YOUR SM VOL 4 [facility] [place] [address] RAMÓN MELGAR THYROID 3 [facility] STIMULATI INC INC NG HORMONE TSH COMPREHEN 89497 RAMÓN MELGAR SIVE 3 [facility] METABOLIC INC INC PANEL LIPID 28594 RAMÓN MELGAR PANEL 3 [place] [address] RAMÓN MELGAR THYROXINE 3 [facility] TOTAL INC INC HEMOGLOBI 49781 RAMÓN MELGAR N 3 [facility] GLYCOSYLA INC INC THERESA A1C BLOOD 86592 RAMÓN MELGAR COUNT 3 [facility] COMPLETE INC INC AUTO&AUTO DIFRNTL WBC RADEX 09567 KOSTELIC KOSTELIC SPINE 3 VINICIO VINICIO LUMBOSACR AL 2/3 VIEWS SIMPLE 75551 YARIEL RODRIGUEZ MAR REPAIR 3 EMERGENCY SCALP/NEC SERVICES K/AX/MAIRA T/TRUNK 2.5CM/< [place] [address] SIMI [place] ABDOMEN & 3 PELVIS W/O CONTRAST MATERIAL URNLS DIP 51068 RAMÓN MELGAR 3 [facility] STICK/TAB INC INC LET REAGENT AUTO MICROSCOP Y RADIOLOGI 38211 MARIBELL C MARIBELL C C EXAM 2 CHEST 2 VIEWS FRONTAL&L ATERAL RADIOLOGI 49162 [facility] [place] [facility] C EXAM 2 RADIOLOGY JOSHUA CHEST 2 VIEWS FRONTAL&L ATERAL RADEX 65245 [facility] [place] JAY HAND 2 RADIOLOGY LIZA MINIMUM 3 VIEWS RADEX 84747 [facility] [place] TRISH HAND 2 RADIOLOGY RHO MINIMUM 3 VIEWS RADEX TOE 99983 SHEBA OAKLEY MINIMUM 2 MEDICAL MARIO [address] [place] [address] [facility] [place] ABDOMEN & 2 RADIOLOGY RAY [place] [address] RAMÓN MELGAR ABDOMEN & 2 [facility] PELVIS INC INC W/O CONTRAST MATERIAL 3D 36610 RAMÓN MELGAR RENDERING 2 [facility] INC INC W/INTERP& POSTPROC DIFF WORK STATION BASIC 06348 RAMÓN MELGAR METABOLIC 2 [facility] PANEL INC INC CALCIUM TOTAL URNLS DIP 76726 RAMÓN MELGAR 2 [facility] STICK/TAB INC INC LET REAGENT AUTO MICROSCOP Y BLOOD 84489 RAMÓN MELGAR COUNT 2 [facility] COMPLETE INC INC AUTO&AUTO DIFRNTL WBC RADIOLOGI 79871 [facility] [place] OMAR MAT C 2 RADIOLOGY EXAMINATI ON KNEE 3 [place] [address] [facility] [place] OMAR MAT SCROTUM & 2 RADIOLOGY CONTENTS DUP-SCAN 12882 [facility] [place] BELCHER JAM ARTL RAIZA 2 RADIOLOGY ABDL/PEL/ SCROT&/RP R ORGN LMT RADEX 19587 RODRIGUEZLENIN JENNIFER FINGR [address] [facility] VIEWS RADEX 55753 [place] GERALD JAM HAND 2 MEDICAL MINIMUM 3 SERV VIEWS FOUNDATIO RADEX 13161 [facility] [place] SCALF CLEMENTINE HAND 2 RADIOLOGY MINIMUM 3 VIEWS URNLS DIP 65085 RAMÓN MELGAR 2 [facility] STICK/TAB INC [place] [address] RAMÓN MELGAR SCROTUM & 2 [facility] CONTENTS INC INC RADEX 58317 BOLUAN RODRIGUEZON SPINE 2 [facility] AL 2/[address] LUMBAR 11907 [place] MERHAR SPINE 2 MEDICAL GAR W/O SERV CONTRAST FOUNDATIO MATERIAL SIMPLE 51129 OSWALDO CHACON REPAIR 2 JULIO JULIO SCALP/NEC K/AX/MAIRA T/TRUNK 2.5CM/< RADEX 57178 [facility] [place] TRISH HAND 2 RADIOLOGY RHO MINIMUM 3 VIEWS INCISION 28237 RAMÓN MELGAR & 2 [facility] DRAINAGE INC INC ABSCESS SIMPLE/SI NGLE INCISION 89752 YARIEL OCHOA & 2 EMERGENCY CONCHIS DRAINAGE SERVICES ABSCESS COMPLICAT ED/MULTIP LE CUL BACT 91960 RAMÓN MELGAR XCPT 2 [facility] URINE INC INC BLOOD/STO OL AEROBIC ISOL CUL BACT 09761 RAMÓN MELGAR AEROBIC 2 [facility] ADDL INC INC METHS DEFINITIV E EA ISOL SUSCEPTIB 19572 RAMÓN MELGAR LTY STDY 2 [facility] ANTIMICRB INC INC IAL MICRO/AGA R DILUTJ RADEX 50258 [facility] [place] OMAR MAT SPINE 2 RADIOLOGY LUMBOSACR AL 2/3 VIEWS RADEX 73005 RAMÓN MELGAR SPINE 2 [facility] LUMBOSACR INC INC AL MINIMUM 4 VIEWS RADEX 79137 [facility] [place] OMAR MAT FINGR 2 RADIOLOGY MINIMUM 2 VIEWS APPLICATI 73665 DANNIELLE SPICER ON FINGER 1 ABD ABD SPLINT DYNAMIC WRIST L3807 TOBIAS CENTRAL HAND 1 SHARI [place] FINGR ORTHOPAED ORTHOS IC W/O JNT PREFAB CSTM FIT RADEX 52136 [facility] [place] OMAR MAT HAND 1 RADIOLOGY MINIMUM 3 VIEWS RADEX 28951 [place] DISANTIS HAND 1 MEDICAL REMINGTON MINIMUM 3 SERV VIEWS FOUNDATIO RADEX 58567 [place] CELE ANKLE 1 MEDICAL MARIO COMPLETE IMAGING MINIMUM 3 ASS VIEWS APPL 42490 ESCALANTE JULIO ESCALANTE JULIO MODALITY 1 1/> AREAS TRACTION MECHANICA L CHIROPRAC 28373 ESCALANTE JULIO ESCALANTE JULIO TIC 1 MANIPULAT [place] SPINAL 3-4 REGIONS APPL 22053 ESCALANTE JULIO ESCALANTE JULIO MODALITY 1 1/> AREAS ELEC STIMJ UNATTENDE D CHIROPRAC 11793 ESCALANTE JULIO ESCALANTE JULIO TIC 1 MANIPLTV TX EXTRASPIN AL 1/> REGION APPLICATI 64919 ESCALANTE JULIO ESCALANTE JULIO ON 1 MODALITY 1/> AREAS HOT/COLD PACKS THERAPEUT 83834 ESCALANTE JULIO ESCALANTE JULIO IC PX 1/> 1 AREAS EACH 15 MIN EXERCISES MANUAL 52998 ESCALANTE JULIO ESCALANTE JULIO THERAPY 1 TQS 1/> REGIONS EACH 15 MINUTES MANUAL 28369 ESCALANTE JULIO ESCALANTE JULIO THERAPY 1 TQS 1/> REGIONS EACH 15 MINUTES THERAPEUT 12958 ESCALANTE JULIO ESCALANTE JULIO IC PX 1/> 1 AREAS EACH 15 MIN EXERCISES APPLICATI 47985 ESCALANTE JULIO ESCALANTE JULIO ON 1 MODALITY 1/> AREAS HOT/COLD PACKS CHIROPRAC 86226 ESCALANTE JULIO ESCALANTE JULIO TIC 1 MANIPLTV TX EXTRASPIN AL 1/> REGION APPL 46136 ESCALANTE JULIO ESCALANTE JULIO MODALITY 1 1/> AREAS ELEC STIMJ UNATTENDE D CHIROPRAC 30811 ESCALANTE JULIO ESCALANTE JULIO TIC 1 MANIPULAT [place] SPINAL 3-4 REGIONS APPL 10833 ESCALANTE JULIO ESCALANTE JULIO MODALITY 1 1/> AREAS TRACTION MECHANICA L APPL 82325 ESCALANTE JULIO ESCALANTE JULIO MODALITY 1 1/> AREAS TRACTION MECHANICA L CHIROPRAC 46491 ESCALANTE JULIO ESCALANTE JULIO TIC 1 MANIPULAT [place] SPINAL 3-4 REGIONS APPL 47877 ESCALANTE JULIO ESCALANTE JULIO MODALITY 1 1/> AREAS ELEC STIMJ UNATTENDE D CHIROPRAC 21304 ESCALANTE JULIO ESCALANTE JULIO TIC 1 MANIPLTV TX EXTRASPIN AL 1/> REGION THERAPEUT 32507 ESCALANTE JULIO ESCALANTE JULIO IC PX 1/> 1 AREAS EACH 15 MIN EXERCISES MANUAL 10329 ESCALANTE JULIO ESCALANTE JULIO THERAPY 1 TQS 1/> REGIONS EACH 15 MINUTES APPLICATI 99467 ESCALANTE JULIO ESCALANTE JULIO ON 1 MODALITY 1/> AREAS HOT/COLD PACKS APPLICATI 18529 ESCALANTE JULIO ESCALANTE JULIO ON 1 MODALITY 1/> AREAS HOT/COLD PACKS MANUAL 65363 ESCALANTE JULIO ESCALANTE JULIO THERAPY 1 TQS 1/> REGIONS EACH 15 MINUTES THERAPEUT 47123 ESCALANTE JULIO ESCALANTE JULIO IC PX 1/> 1 AREAS EACH 15 MIN EXERCISES CHIROPRAC 40604 ESCALANTE JULIO ESCALANTE JULIO TIC 1 MANIPLTV TX EXTRASPIN AL 1/> REGION APPL 75248 ESCALANTE JULIO ESCALANTE JULIO MODALITY 1 1/> AREAS ELEC STIMJ UNATTENDE D CHIROPRAC 52147 ESCALANTE JULIO ESCALANTE JULIO TIC 1 MANIPULAT [place] SPINAL 3-4 REGIONS APPL 45158 ESCALANTE JULIO ESCALANTE JULIO MODALITY 1 1/> AREAS TRACTION MECHANICA L APPL 73135 ESCALANTE JULIO ESCALANTE JULIO MODALITY 1 1/> AREAS TRACTION MECHANICA L CHIROPRAC 05168 ESCALANTE JULIO ESCALANTE JULIO TIC 1 MANIPULAT [place] SPINAL 3-4 REGIONS APPL 58153 ESCALANTE JULIO ESCALANTE JULIO MODALITY 1 1/> AREAS ELEC STIMJ UNATTENDE D CHIROPRAC 25533 ESCALANTE JULIO ESCALANTE JULIO TIC 1 MANIPLTV TX EXTRASPIN AL 1/> REGION THERAPEUT 37774 ESCALANTE JULIO ESCALANTE JULIO IC PX 1/> 1 AREAS EACH 15 MIN EXERCISES MANUAL 22221 ESCALANTE JULIO ESCALANTE JULIO THERAPY 1 TQS 1/> REGIONS EACH 15 MINUTES APPLICATI 53878 ESCALANTE JULIO ESCALANTE JULIO ON 1 MODALITY 1/> AREAS HOT/COLD PACKS APPLICATI 71340 ESCALANTE JULIO ESCALANTE JULIO ON 1 MODALITY 1/> AREAS HOT/COLD PACKS MANUAL 95827 ESCALANTE JULIO ESCALANTE JULIO THERAPY 1 TQS 1/> REGIONS EACH 15 MINUTES THERAPEUT 74647 ESCALANTE JULIO ESCALANTE JULIO IC PX 1/> 1 AREAS EACH 15 MIN EXERCISES CHIROPRAC 37959 ESCALANTE JULIO ESCALANTE JULIO TIC 1 MANIPLTV TX EXTRASPIN AL 1/> REGION APPL 88522 ESCALANTE JULIO ESCALANTE JULIO MODALITY 1 1/> AREAS ELEC STIMJ UNATTENDE D CHIROPRAC 21293 ESCALANTE JULIO ESCALANTE JULIO TIC 1 MANIPULAT [place] SPINAL 3-4 REGIONS APPL 73183 ESCALANTE JULIO ESCALANTE JULIO MODALITY 1 1/> AREAS TRACTION MECHANICA L APPL 89180 ESCALANTE JULIO ESCALANTE JULIO MODALITY 1 1/> AREAS TRACTION MECHANICA L CHIROPRAC 90497 ESCALANTE JULIO ESCALANTE JULIO TIC 1 [place] SPINAL 3-4 REGIONS APPL 56323 ESCALANTE JULIO ESCALANTE JULIO MODALITY 1 1/> AREAS ELEC STIMJ UNATTENDE D CHIROPRAC 85130 ESCALANTE JULIO ESCALANTE JULIO TIC 1 MANIPLTV TX EXTRASPIN AL 1/> REGION THERAPEUT 76399 ESCALANTE JULIO ESCALANTE JULIO IC PX 1/> 1 AREAS EACH 15 MIN EXERCISES MANUAL 89430 ESCALANTE JULIO ESCALANTE JULIO THERAPY 1 TQS 1/> REGIONS EACH 15 MINUTES APPLICATI 00311 ESCALANTE JULIO ESCALANTE JULIO ON 1 MODALITY 1/> AREAS HOT/COLD PACKS APPLICATI 66514 ESCALANTE JULIO ESCALANTE JULIO ON 1 MODALITY 1/> AREAS HOT/COLD PACKS MANUAL 05737 ESCALANTE JULIO ESCALANTE JULIO THERAPY 1 TQS 1/> REGIONS EACH 15 MINUTES THERAPEUT 03619 ESCALANTE JULIO ESCALANTE JULIO IC PX 1/> 1 AREAS EACH 15 MIN EXERCISES CHIROPRAC 38549 ESCALANTE JULIO ESCALANTE JULIO TIC 1 MANIPLTV TX EXTRASPIN AL 1/> REGION APPL 80979 ESCALANTE JULIO ESCALANTE JULIO MODALITY 1 1/> AREAS ELEC STIMJ UNATTENDE D CHIROPRAC 83140 ESCALANTE JULIO ESCALANTE JULIO TIC 1 [place] SPINAL 3-4 REGIONS APPL 25843 ESCALANTE JULIO ESCALANTE JULIO MODALITY 1 1/> AREAS TRACTION MECHANICA L CHIROPRAC 13956 ESCALANTE JULIO ESCALANTE JULIO TIC 1 MANIP[place]AT [place] SPINAL 3-4 REGIONS APPL 11008 ESCALANTE JULIO ESCALANTE JULIO MODALITY 1 1/> AREAS ELEC STIMJ UNATTENDE D APPL 45509 ESCALANTE JULIO ESCALANTE JULIO MODALITY 1 1/> AREAS TRACTION MECHANICA L CHIROPRAC 29858 ESCALANTE JULIO ESCALANTE JULIO TIC 1 MANIPLTV TX EXTRASPIN AL 1/> REGION APPLICATI 52367 ESCALANTE JULIO ESCALANTE JULIO ON 1 MODALITY 1/> AREAS HOT/COLD PACKS THERAPEUT 36452 ESCALANTE JULIO ESCALANTE JULIO IC PX 1/> 1 AREAS EACH 15 MIN EXERCISES MANUAL 70200 ESCALANTE JULIO ESCALANTE JULIO THERAPY 1 TQS 1/> REGIONS EACH 15 MINUTES MANUAL 04463 ESCALANTE JULIO ESCALANTE JULIO THERAPY 1 TQS 1/> REGIONS EACH 15 MINUTES THERAPEUT 38180 ESCALANTE JULIO ESCALANTE JULIO IC PX 1/> 1 AREAS EACH 15 MIN EXERCISES APPLICATI 99826 ESCALANTE JULIO ESCALANTE JULIO ON 1 MODALITY 1/> AREAS HOT/COLD PACKS CHIROPRAC 62746 ESCALANTE JULIO ESCALANTE JULIO TIC 1 MANIPLTV TX EXTRASPIN AL 1/> REGION APPL 90234 ESCALANTE JULIO ESCALANTE JULIO MODALITY 1 1/> AREAS TRACTION MECHANICA L APPL 54242 ESCALANTE JULIO ESCALANTE JULIO MODALITY 1 1/> AREAS ELEC STIMJ UNATTENDE D CHIROPRAC 03962 ESCALANTE JULIO ESCALANTE JULIO TIC 1 [place] SPINAL 3-4 REGIONS CHIROPRAC 62829 ESCALANTE JULIO ESCALANTE JULIO TIC 1 MANIP[place]AT [place] SPINAL 3-4 REGIONS APPL 11056 ESCALANTE JULIO ESCALANTE JULIO MODALITY 1 1/> AREAS ELEC STIMJ UNATTENDE D APPL 51569 ESCALANTE JULIO ESCALANTE JULIO MODALITY 1 1/> AREAS TRACTION MECHANICA L CHIROPRAC 70214 ESCALANTE JULIO ESCALANTE JULIO TIC 1 MANIPLTV TX EXTRASPIN AL 1/> REGION APPLICATI 49467 ESCALANTE JULIO ESCALANTE JULIO ON 1 MODALITY 1/> AREAS HOT/COLD PACKS THERAPEUT 15247 ESCALANTE JULIO ESCALANTE JULIO IC PX 1/> 1 AREAS EACH 15 MIN EXERCISES MANUAL 89746 ESCALANTE JULIO ESCALANTE JULIO THERAPY 1 TQS 1/> REGIONS EACH 15 MINUTES MANUAL 56852 ESCALANTE JULIO ESCALANTE JULIO THERAPY 1 TQS 1/> REGIONS EACH 15 MINUTES THERAPEUT 72924 ESCALANTE JULIO ESCALANTE JULIO IC PX 1/> 1 AREAS EACH 15 MIN EXERCISES APPLICATI 08842 ESCALANTE JULIO ESCALANTE JULIO ON 1 MODALITY 1/> AREAS HOT/COLD PACKS CHIROPRA 64144 ESCALANTE JULIO ESCALANTE JULIO TIC 1 MANIPLTV TX EXTRASPIN AL 1/> REGION APPL 25587 ESCALANTE JULIO ESCALANTE JULIO MODALITY 1 1/> AREAS TRACTION MECHANICA L APPL 53139 ESCALANTE JULIO ESCALANTE JULIO MODALITY 1 1/> AREAS ELEC STIMJ UNATTENDE D CHIROPRA 08588 ESCALANTE JULIO ESCALANTE JULIO TIC 1 MANIP[place]AT [place] SPINAL 3-4 REGIONS CHIROPRA 95200 ESCALANTE JULIO ESCALANTE JULIO TIC 1 MANIP[place]AT [place] SPINAL 3-4 REGIONS APPL 69388 ESCALANTE JULIO ESCALANTE JULIO MODALITY 1 1/> AREAS TRACTION MECHANICA L APPL 71576 ESCALANTE JULIO ESCALANTE JULIO MODALITY 1 1/> AREAS ELEC STIMJ UNATTENDE D CHIROPRA 68092 ESCALANTE JULIO ESCALANTE JULIO TIC 1 MANIPLTV TX EXTRASPIN AL 1/> REGION APPLICATI 39668 ESCALANTE JULIO ESCALANTE JULIO ON 1 MODALITY 1/> AREAS HOT/COLD PACKS THERAPEUT 73156 ESCALANTE JULIO ESCALANTE JULIO IC PX 1/> 1 AREAS EACH 15 MIN EXERCISES MANUAL 39933 ESCALANTE JULIO ESCALANTE JULIO THERAPY 1 TQS 1/> REGIONS EACH 15 MINUTES MANUAL 82665 ESCALANTE JULIO ESCALANTE JULIO THERAPY 1 TQS 1/> REGIONS EACH 15 MINUTES THERAPEUT 85966 ESCALANTE JULIO ESCALANTE JULIO IC PX 1/> 1 AREAS EACH 15 MIN EXERCISES APPLICATI 63039 ESCALANTE JULIO ESCALANTE JULIO ON 1 MODALITY 1/> AREAS HOT/COLD PACKS CHIROPRA 95784 ESCALANTE JULIO ESCALANTE JULIO TIC 1 MANIPLTV TX EXTRASPIN AL 1/> REGION APPL 43236 ESCALANTE JULIO ESCALANTE JULIO MODALITY 1 1/> AREAS ELEC STIMJ UNATTENDE D APPL 05894 ESCALANTE JULIO ESCALANTE JULIO MODALITY 1 1/> AREAS TRACTION MECHANICA L CHIROPRA 70426 ESCALANTE JULIO ESCALANTE JULIO TIC 1 [place]IP[place]AT [place] SPINAL 3-4 REGIONS THERAPEUT 48750 ESCALANTE JULIO ESCALANTE JULIO IC PX 1/> 1 AREAS EACH 15 MIN EXERCISES CHIROPRAC 37414 ESCALANTE JULIO ESCALANTE JULIO TIC 1 MANIP[place]AT [place] SPINAL 3-4 REGIONS APPL 16632 ESCALANTE JULIO ESCALANTE JULIO MODALITY 1 1/> AREAS TRACTION MECHANICA L CHIROPRA 33085 ESCALANTE JULIO ESCALANTE JULIO TIC 1 MANIPLTV TX EXTRASPIN AL 1/> REGION APPL 41631 ESCALANTE JULIO ESCALANTE JULIO MODALITY 1 1/> AREAS ELEC STIMJ UNATTENDE D APPLICATI 04323 ESCALANTE JULIO ESCALANTE JULIO ON 1 MODALITY 1/> AREAS HOT/COLD PACKS MANUAL 06867 ESCALANTE JULIO ESCALANTE JULIO THERAPY 1 TQS 1/> REGIONS EACH 15 MINUTES APPLICATI 24424 ESCALANTE JULIO ESCALANTE JULIO ON 1 MODALITY 1/> AREAS HOT/COLD PACKS APPL 48567 ESCALANTE JULIO ESCALANTE JULIO MODALITY 1 1/> AREAS ELEC STIMJ UNATTENDE D CHIROPRA 16071 ESCALANTE JULIO ESCALANTE JULIO TIC 1 MANIPLTV TX EXTRASPIN AL 1/> REGION APPL 57127 ESCALANTE JULIO ESCALANTE JULIO MODALITY 1 1/> AREAS TRACTION MECHANICA L CHIROPRAC 15846 ESCALANTE JULIO ESCALANTE JULIO TIC 1 MANIP[place]AT [place] SPINAL 3-4 REGIONS THERAPEUT 38424 ESCALANTE JULIO ESCALANTE JULIO IC PX 1/> 1 AREAS EACH 15 MIN EXERCISES MANUAL 32502 ESCALANTE JULIO ESCALANTE JULIO THERAPY 1 TQS 1/> REGIONS EACH 15 MINUTES THERAPEUT 61265 ESCALANTE JULIO ESCALANTE JULIO IC PX 1/> 1 AREAS EACH 15 MIN EXERCISES CHIROPRAC 20312 ESCALANTE JULIO ESCALANTE JULIO TIC 1 MANIPULAT [place] SPINAL 3-4 REGIONS APPL 76994 ESCALANTE JULIO ESCALANTE JULIO MODALITY 1 1/> AREAS TRACTION MECHANICA L CHIROPRAC 65787 ESCALANTE JULIO ESCALANTE JULIO TIC 1 MANIPLTV TX EXTRASPIN AL 1/> REGION APPL 15526 ESCALANTE JULIO ESCALANTE JULIO MODALITY 1 1/> AREAS ELEC STIMJ UNATTENDE D APPLICATI 63448 ESCALANTE JULIO ESCALANTE JULIO ON 1 MODALITY 1/> AREAS HOT/COLD PACKS MANUAL 48724 ESCALANTE JULIO ESCALANTE JULIO THERAPY 1 TQS 1/> REGIONS EACH 15 MINUTES MANUAL 21340 ESCALANTE JULIO ESCALANTE JULIO THERAPY 1 TQS 1/> REGIONS EACH 15 MINUTES APPLICATI 97632 ESCALANTE JULIO ESCALANTE JULIO ON 1 MODALITY 1/> AREAS HOT/COLD PACKS APPL 57850 ESCALANTE JULIO ESCALANTE JULIO MODALITY 1 1/> AREAS ELEC STIMJ UNATTENDE D CHIROPRA 54203 ESCALANTE JULIO ESCALANTE JULIO TIC 1 MANIPLTV TX EXTRASPIN AL 1/> REGION APPL 08494 ESCALANTE JULIO ESCALANTE JULIO MODALITY 1 1/> AREAS TRACTION MECHANICA L CHIROPRA 83315 ESCALANTE JULIO ESCALANTE JULIO TIC 1 MANIPULAT [place] SPINAL 3-4 REGIONS THERAPEUT 97097 ESCALANTE JULIO ESCALANTE JULIO IC PX 1/> 1 AREAS EACH 15 MIN EXERCISES THERAPEUT 61621 ESCALANTE JULIO ESCALANTE JULIO IC PX 1/> 1 AREAS EACH 15 MIN EXERCISES CHIROPRAC 92107 ESCALANTE JULIO ESCALANTE JULIO TIC 1 [place]AT [place] SPINAL 3-4 REGIONS RADEX 99683 [place] GERALD JAM FOOT 1 MEDICAL COMPLETE SERV MINIMUM 3 FOUNDATIO VIEWS APPL 93857 ESCALANTE JULIO ESCALANTE JULIO MODALITY 1 1/> AREAS TRACTION MECHANICA L APPL 23182 ESCALANTE JULIO ESCALANTE JULIO MODALITY 1 1/> AREAS ELEC STIMJ UNATTENDE D CHIROPRAC 12129 ESCALANTE JULIO ESCALANTE JULIO TIC 1 MANIPLTV TX EXTRASPIN AL 1/> REGION APPLICATI 74950 ESCALANTE JULIO ESCALANTE JULIO ON 1 MODALITY 1/> AREAS HOT/COLD PACKS MANUAL 67248 ESCALANTE JULIO ESCALANTE JULIO THERAPY 1 TQS 1/> REGIONS EACH 15 MINUTES RADEX 32179 [facility] [place] TRISH FOOT 1 RADIOLOGY RHO COMPLETE MINIMUM 3 VIEWS CHIROPRA 50696 ESCALANTE JULIO ESCALANTE JULIO TIC 1 [place]AT [place] SPINAL 3-4 REGIONS CHIROPRA 01689 ESCALANTE JULIO ESCALANTE JULIO TIC 1 MANIPLTV TX EXTRASPIN AL 1/> REGION APPL 52616 ESCALANTE JULIO ESCALANTE JULIO MODALITY 1 1/> AREAS ELEC STIMJ UNATTENDE D APPL 80095 ESCALANTE JULIO ESCALANTE JULIO MODALITY 1 1/> AREAS TRACTION MECHANICA L MANUAL 91742 ESCALANTE JULIO ESCALANTE JULIO THERAPY 1 TQS 1/> REGIONS EACH 15 MINUTES THERAPEUT 98547 ESCALANTE JULIO ESCALANTE JULIO IC PX 1/> 1 AREAS EACH 15 MIN EXERCISES APPLICATI 75658 ESCALANTE JULIO ESCALANTE JULIO ON 1 MODALITY 1/> AREAS HOT/COLD PACKS MANUAL 94471 ESCALANTE JULIO ESCALANTE JULIO THERAPY 1 TQS 1/> REGIONS EACH 15 MINUTES THERAPEUT 19493 ESCALANTE JULIO ESCALANTE JULIO IC PX 1/> 1 AREAS EACH 15 MIN EXERCISES APPLICATI 43701 ESCALANTE JULIO ESCALANTE JULIO ON 1 MODALITY 1/> AREAS HOT/COLD PACKS APPL 45854 ESCALANTE JULIO ESCALANTE JULIO MODALITY 1 1/> AREAS ELEC STIMJ UNATTENDE D CHIROPRA 53008 ESCALANTE JULIO ESCALANTE JULIO TIC 1 MANIPLTV TX EXTRASPIN AL 1/> REGION CHIROPRA 52064 ESCALANTE JULIO ESCALANTE JULIO TIC 1 MANIP[place]AT [place] SPINAL 3-4 REGIONS APPL 80047 ESCALANTE JULIO ESCALANTE JULIO MODALITY 1 1/> AREAS TRACTION MECHANICA L APPL 38488 ESCALANTE JULIO ESCALANTE JULIO MODALITY 1 1/> AREAS TRACTION MECHANICA L CHIROPRAC 33042 ESCALANTE JULIO ESCALANTE JULIO TIC 1 MANIPULAT [place] SPINAL 3-4 REGIONS CHIROPRAC 15852 ESCALANTE JULIO ESCALANTE JULIO TIC 1 MANIPLTV TX EXTRASPIN AL 1/> REGION APPL 93090 ESCALANTE JULIO ESCALANTE JULIO MODALITY 1 1/> AREAS ELEC STIMJ UNATTENDE D APPLICATI 43809 ESCALANTE JULIO ESCALANTE JULIO ON 1 MODALITY 1/> AREAS HOT/COLD PACKS THERAPEUT 96276 ESCALANTE JULIO ESCALANTE JULIO IC PX 1/> 1 AREAS EACH 15 MIN EXERCISES MANUAL 28153 ESCALANTE JULIO ESCALANTE JULIO THERAPY 1 TQS 1/> REGIONS EACH 15 MINUTES RADEX 27082 [facility] [place] KOSTELIC SPINE 1 RADIOLOGY VINICIO LUMBOSACR AL 2/3 VIEWS CHIROPRA 60870 ESCALANTE JULIO ESCALANTE JULIO TIC 1 MANIPULAT [place] SPINAL 3-4 REGIONS APPL 30177 ESCALANTE JULIO ESCALANTE JULIO MODALITY 1 1/> AREAS TRACTION MECHANICA L APPL 12352 ESCALANTE JULIO ESCALANTE JULIO MODALITY 1 1/> AREAS ELEC STIMJ UNATTENDE D CHIROPRAC 50496 ESCALANTE JULIO ESCALANTE JULIO TIC 1 MANIPLTV TX EXTRASPIN AL 1/> REGION THERAPEUT 61824 ESCALANTE JULIO ESCALANTE JULIO IC PX 1/> 1 AREAS EACH 15 MIN EXERCISES MANUAL 22887 ESCALANTE JULIO ESCALANTE JULIO THERAPY 1 TQS 1/> REGIONS EACH 15 MINUTES APPLICATI 07481 ESCALANTE JULIO ESCALANTE JULIO ON 1 MODALITY 1/> AREAS HOT/COLD PACKS APPLICATI 69848 ESCALANTE JULIO ESCALANTE JULIO ON 1 MODALITY 1/> AREAS HOT/COLD PACKS MANUAL 71360 ESCALANTE JULIO ESCALANTE JULIO THERAPY 1 TQS 1/> REGIONS EACH 15 MINUTES THERAPEUT 08893 ESCALANTE JULIO ESCALANTE JULIO IC PX 1/> 1 AREAS EACH 15 MIN EXERCISES CHIROPRAC 42552 ESCALANTE JULIO ESCALANTE JULIO TIC 1 MANIPLTV TX EXTRASPIN AL 1/> REGION APPL 69700 ESCALANTE JULIO ESCALANTE JULIO MODALITY 1 1/> AREAS ELEC STIMJ UNATTENDE D APPL 24665 ESCALANTE JULIO ESCALANTE JULIO MODALITY 1 1/> AREAS TRACTION MECHANICA L CHIROPRA 98513 ESCALANTE JULIO ESCALANTE JULIO TIC 1 MANIPULAT [place] SPINAL 3-4 REGIONS CHIROPRA 66682 ESCALANTE JULIO ESCALANTE JULIO TIC 1 MANIPULAT [place] SPINAL 3-4 REGIONS APPL 03043 ESCALANTE JULIO ESCALANTE JULIO MODALITY 1 1/> AREAS TRACTION MECHANICA L APPL 50183 ESCALANTE JULIO ESCALANTE JULIO MODALITY 1 1/> AREAS ELEC STIMJ UNATTENDE D CHIROPRA 47344 ESCALANTE JULIO ESCALANTE JULIO TIC 1 MANIPLTV TX EXTRASPIN AL 1/> REGION THERAPEUT 92518 ESCALANTE JULIO ESCALANTE JULIO IC PX 1/> 1 AREAS EACH 15 MIN EXERCISES MANUAL 39040 ESCALANTE JULIO ESCALANTE JULIO THERAPY 1 TQS 1/> REGIONS EACH 15 MINUTES APPLICATI 70161 ESCALANTE JULIO ESCALANTE JULIO ON 1 MODALITY 1/> AREAS HOT/COLD PACKS APPLICATI 75765 ESCALANTE JULIO ESCALANTE JULIO ON 1 MODALITY 1/> AREAS HOT/COLD PACKS MANUAL 26352 ESCALANTE JULIO ESCALANTE JULIO THERAPY 1 TQS 1/> REGIONS EACH 15 MINUTES THERAPEUT 94231 ESCALANTE JULIO ESCALANTE JULIO IC PX 1/> 1 AREAS EACH 15 MIN EXERCISES CHIROPRA 08785 ESCALANTE JULIO ESCALANTE JULIO TIC 1 MANIPLTV TX EXTRASPIN AL 1/> REGION APPL 36522 ESCALANTE JULIO ESCALANTE JULIO MODALITY 1 1/> AREAS ELEC STIMJ UNATTENDE D APPL 60462 ESCALANTE JULIO ESCALANTE JULIO MODALITY 1 1/> AREAS TRACTION MECHANICA L CHIROPRA 97293 ESCALANTE JULIO ESCALANTE JULIO TIC 1 [place]IP[place]AT [place] SPINAL 3-4 REGIONS RADIOLOGI 98139 [facility] [place] OMAR MAT C EXAM 1 RADIOLOGY CHEST 2 VIEWS FRONTAL&L ATERAL RADEX 68319 [facility] SPINE 1 Y [facility] 2 VIEWS RADEX 94141 [facility] SPINE 1 Y [facility] 2 VIEWS RADIOLOGI 64825 [facility] C EXAM 1 Y Y CHEST 2 HOSPITAL HOSPITAL VIEWS FRONTAL&L ATERAL RADEX 99407 [facility] [place] LASHAE ELBOW 1 RADIOLOGY DANNI COMPLETE [place] 3 [place] [address] CHIP[facility] MOSES JAM SURG 1 MARLON & PATHOLOGY DUBILIER GROSS&CONCHIS ROSCOPIC EXAM RPR 23225 VENG[facility] VENGUSWAM UMBILICAL 1 Y CATARINA Y CATARINA HRNA 5 YRS/> REDUCIBLE SIMPLE 26605 YARIEL GALO REPAIR 1 EMERGENCY CHAU SCALP/NEC SERVICES K/AX/MAIRA T/TRUNK 2.5CM/< URNLS DIP 11944 [facility] 1 N N STICK/TAB [facility] LET HOSPITA HOSPITA REAGENT AUTO MICROSCOP Y THERAPEUT 69767 [facility] IC 1 N N PROPHYLAC [facility] TIC/DX HOSPITA HOSPITA INJECTION SUBQ/IM PROTHROMB 18487 [facility] IN TIME 1 N N [facility] HOSPITA HOSPITA ECG 35494 [facility] ROUTINE 1 N N ECG [facility] W/LEAST HOSPITA HOSPITA 12 LDS TRCG ONLY W/O I&R BLOOD 11000 [facility] COUNT 1 N N COMPLETE [facility] AUTOMATED HOSPITA HOSPITA RADIOLOGI 45884 [facility] [place] OMAR MAT C EXAM 1 RADIOLOGY CHEST 2 VIEWS FRONTAL&L ATERAL BLOOD 26851 [facility] COUNT 1 N N SMEAR [facility] MCRSCP HOSPITA HOSPITA W/MNL DIFRNTL WBC COUNT BASIC 85314 [facility] METABOLIC 1 N N PANEL [facility] CALCIUM HOSPITA HOSPITA TOTAL THROMBOPL 06640 [facility] ASTIN 1 N N TIME [facility] PARTIAL HOSPITA HOSPITA PLASMA/WH OLE BLOOD COLLECTIO 17554 [facility] N VENOUS 1 N N BLOOD [facility] VENIPUNCT HOSPITA HOSPITA URE BLOOD 33429 [facility] OCCULT 1 N URGENT ABD PEROXIDAS CARE E ACTV QUAL FECES 1 DETER IMMUNOASS 19428 [facility] AY NFCT 1 N URGENT ABD AGT ANTB CARE QUAL/SEMI LOUIE 1 STEP SERVICES 61352 [facility] PROVIDED 1 N URGENT ABD OFFICE CARE OTH/THN REG SCHED HOURS MRI ANY 81285 [facility] GRACIE GE JT LOWER 1 RADIOLOGY EXTREM W/O CONTRAST MATRL SERVICES 03363 [facility] 1 N URGENT ABD OFFICE CARE OTH/THN REG SCHED HOURS ACUTE 74960 [facility] HEPATITIS 1 N N PANEL [facility] HOSPITA HOSPITA HEPATITIS 31576 [facility] A 1 N N ANTIBODY [facility] HAAB HOSPITA HOSPITA COLLECTIO 24940 [facility] N VENOUS 1 N N BLOOD [facility] URE HEPATITIS 66592 [facility] CORE 1 N N ANTIBODY [facility] HBCAB HOSPITA HOSPITA TOTAL HEPATITIS 86891 [facility] SURF 1 N N ANTIBODY [facility] HBSAB HOSPITA HOSPITA RADIOLOGI 31702 [facility] GRACIE NELSON MAT C 1 RADIOLOGY EXAMINATI ON KNEE 3 VIEWS THERAPEUT 11296 [facility] IC 1 N URGENT ABD PROPHYLAC CARE TIC/DX INJECTION SUBQ/IM ECG 67317 [facility] ROUTINE 0 ANNITA ADR ECG CARDIOLOG W/LEAST Y CLINIC 12 LDS W/I&R COLLECTIO 99299 [facility] N VENOUS 0 N N BLOOD [facility] VENIPUNCT HOSPITA HOSPITA URE ACUTE 15637 [facility] HEPATITIS 0 N N PANEL [facility] [place] [address] [facility] GRACIE NELSON MAT ABDOMINAL 0 RADIOLOGY REAL TIME W/IMAGE LIMITED COLLECTIO 22408 [facility] N VENOUS 0 N N BLOOD [facility] VENIPUNCT HOSPITA HOSPITA URE LIPID 34278 [facility] PANEL 0 N N [facility] HOSPITA HOSPITA COMPREHEN 84819 [facility] SIVE 0 N N METABOLIC [facility] [place] [address] [facility] THYROID 0 N N STIMULATI [facility] HOSPITA HOSPITA [place] T[facility] SERVICES 84091 [facility] PROVIDED 0 N URGENT ABD OFFICE CARE OTH/THN REG SCHED HOURS MRI 04375 [facility] [place] TRISH SPINAL 0 RADIOLOGY RHO CANAL CERVICAL W/O CONTRAST MATRL RADEX 47082 [place] CELE ELBOW 0 MEDICAL MARIO COMPLETE IMAGING MINIMUM 3 [place] [address] [facility] 0 [employer] ACID SERUM COMPREHEN 20844 [facility] SIVE 0 [employer] METABOLIC PANEL SERVICES 09371 [facility] PROVIDED 0 N URGENT ABD OFFICE CARE OTH/THN REG SCHED HOURS BLOOD 81470 [facility] COUNT 0 [employer] COMPLETE AUTO&AUTO DIFRNTL WBC GLUCOSE 41174 [facility] QUANTITAT 0 N URGENT ABD CLARY BLOOD CARE XCPT REAGENT STRIP HEMOGLOBI 94914 [facility] N 0 [employer] GLYCOSYLA THERESA A1C NDL EMG 1 52606 GARCÍA TRA GARCÍA TRA XTR W/WO 0 RELATED PARASPINA L AREAS NRV CND 95821 GARCÍA TRA GARCÍA TRA AMPLT&LAT 0 NCY EA NRV MOTR W/O F-WAVE STD NRV CND 48685 GARCÍA TRA GARCÍA TRA AMPLT&LAT 0 ENCY EA NRV MOTOR W/F-WAVE STD NRV [facility] 66639 GARCÍA TRA GARCÍA TRA AMPLITUDE 0 & LATENCY EACH NERVE SENSORY RADEX 59782 [facility] ELBOW 0 N N COMPLETE [facility] MINIMUM 3 HOSPITA HOSPITA VIEWS RADEX 33364 [facility] [place] OMAR MAT HAND 0 RADIOLOGY MINIMUM 3 VIEWS RADEX 19667 [facility] [place] OMAR MAT SPINE 0 RADIOLOGY LUMBOSACR AL 2/3 VIEWS RADEX 31016 [facility] [place] OMAR MAT WRIST 0 RADIOLOGY COMPLETE [place] [place] [address] [facility] [place] OMAR MAT ABDOMEN 0 RADIOLOGY W/CONTRAS T MATERIAL CT PELVIS 92195 [facility] [place] OMAR MAT 0 RADIOLOGY W/CONTRAS T MATERIAL RADEX 10476 [place]EL[place] SPINE 0 MEDICAL REMINGTON LUMBOSACR SERV AL 2/3 FOUNDATIO VIEWS RADEX 95207 [place] BANDAR SPINE 0 MEDICAL STEPH LUMBOSACR IMAGING AL ASS MINIMUM 4 VIEWS RADEX 01105 [place] BANDAR SPINE 0 MEDICAL STEPH CERVICAL IMAGING 6 OR MORE ASS VIEWS RADEX 01145 [place] BANDAR SPINE 0 MEDICAL STEPH THORACIC IMAGING 3 VIEWS ASS RADEX TOE 16150 [place] CELE MINIMUM 0 MEDICAL MARIO 2 VIEWS IMAGING ASS RADEX 95175 [facility] [place] OMAR, FOOT 0 RADIOLOGY WILLIAM D COMPLETE MINIMUM 3 VIEWS URNLS DIP 54895 RAMÓN MELGAR 0 [facility] STICK/TAB INC INC LET REAGENT AUTO MICROSCOP Y URNLS DIP 96134 [facility] 0 [facility] STICK/TAB [facility] LET REAGENT AUTO MICROSCOP Y BLOOD 43458 [facility] COUNT 0 [facility] AUTO&AUTO DIFRNTL WBC CUL BACT 37030 [facility] XCPT 0 [facility] BLOOD/STO OL AEROBIC ISOL BASIC 51111 [facility] METABOLIC 0 [facility] CALCIUM TOTAL COLLECTIO 24840 [facility] N VENOUS 0 [facility] U[facility] CULTURE 85339 [facility] BACTERIAL 0 [facility] QUANTTATI VE COLONY COUNT URINE SUSCEPTIB 85277 [facility] LTY STDY 0 [facility] IAL MICRO/AGA R DILUTJ RADEX 15963 [facility] [place] TRISH, ELBOW 0 RADIOLOGY HALLIE G COMPLETE MINIMUM 3 VIEWS DUP-SCAN 83197 [facility] [place] XTR VEINS 0 RADIOLOGY LD, A D UNILATERA L/LIMITED STUDY RADEX 56802 [facility] [place] MARTINEZ, G ELBOW 2 0 RADIOLOGY T VIEWS NONINVASI 74303 [facility] VE 0 Y Y [facility] HOSPITAL OXIMETRY SINGLE DETER NONINVASI 27398 [facility] VE 0 Y Y E[facility] HOSPITAL OXIMETRY SINGLE DETER RADEX 50631 [facility] NICOLAS, SACRUM & 0 Y OF DIANE A [facility] [place] MINIMUM 2 HOSPITAL VIEWS RADEX 24613 [place] FRANK, FOOT 0 [facility] N COMPLETE SERV MINIMUM 3 [place]E 76[address] [facility] [place] OMAR, MINIMUM 0 RADIOLOGY WILLIAM D 2 VIEWS CUL BACT 18539 [facility] XCPT 9 [facility] BLOOD/STO OL AEROBIC ISOL SUSCEPTIB 26670 [facility] LTY STDY 9 [facility] IAL MICRO/AGA R DILUTJ THERAPEUT [address] PROPHYLAC TIC/DX INJECTION SUBQ/IM RADEX 64632 [facility] GRACIE MASTERS, SPINE 9 RADIOLOGY TOBY A LUMBOSACR AL 2/3 VIEWS INJECTION [id number] [address] KETOROLAC TROMETHAM INE PER 15 MG RADEX 06463 [facility] GRACIE UREÑA ANKLE 9 RADIOLOGY J COMPLETE MINIMUM 3 VIEWS STRAPPING 06329 [facility] ANKLE 9 JEFFY SMITH &/FOOT EMERGENCY A PHYS INC RADIOLOGI 40913 [facility] Lydia ANDUJAR 9 RADIOLOGY J EXAMINATI ON TIBIA & FIBULA 2 VIEWS ANES 63855 [place] LIGIA, INTEG 9 ANESTHESI MIKE J MUSC & A GROUP NRV HEAD PSC NECK&POST ERIOR TRUNK EXCISION 46730 SHANIJOSE BELTRAN PILONIDAL 9 , QUITAQUITA Sawyer CYST/SINU S SIMPLE LEVEL III 18081 PATHOLOGY PATHOLOGY SURG 9 & & PATHOLOGY CYTOLOGY CYTOLOGY LAB LAB GROSS&CONCHIS ROSCOPIC EXAM BLOOD 11691 [facility] COUNT 9 [facility] AUTO&AUTO DIFRNTL WBC BASIC 21037 [facility] METABOLIC 9 [facility] CALCIUM TOTAL COLLECTIO 73408 [facility] N VENOUS 9 [facility] CUL BACT 17150 RAMÓN RAMÓN XCPT 9 [facility] URINE INC INC BLOOD/STO OL AEROBIC ISOL SUSCEPTIB 25969 RAMÓN MELGAR LTY STDY 9 [facility] ANTIMICRB INC INC IAL MICRO/AGA R DILUTJ CUL BACT 67506 RAMÓN MELGAR AEROBIC 9 [facility] ADDL INC INC METHS DEFINITIV E EA ISOL APPLICATI 66624 [facility] SHORT 9 JEFFY W E LEG EMERGENCY SPLINT PHYS INC CALF FOOT RADEX 09768 [facility] FOOT [address] [place] [address] COMPLETE MINIMUM 3 VIEWS RADEX 65084 [facility] ANKLE [address] [place] [address] COMPLETE MINIMUM 3 VIEWS RADEX 47446 [facility] [place] SCALF, SPINE 9 RADIOLOGY BOY E LUMBOSACR AL 2/3 VIEWS RADIOLOGI 44076 SHEBA OAKLEY C 9 MEDICAL RUY EXAMINATI IMAGING ON PELVIS ASSOCIATE 1/2 S VIEWS RADEX 69521 [facility] SEGALCELE, SPINE 9 MEDICAL RUY LUMBOSACR IMAGING AL ASSOCIATE MINIMUM [address] [place] [address] RAMÓN MELGAR ABDOMEN 9 [facility] W/O INC INC CONTRAST MATERIAL URNLS DIP 79202 RAMÓN MELGAR 9 [facility] STICK/TAB INC INC LET REAGENT AUTO MICROSCOP Y CT PELVIS 80322 RAMÓN MELGAR W/O 9 [facility] CONTRAST INC INC MATERIAL BLOOD 36648 RAMÓN MELGAR COUNT 9 [facility] COMPLETE INC INC AUTO&AUTO DIFRNTL WBC 3D 71226 SHEBA PORTILLO, RENDERING 9 MEDICAL PITER P IMAGING W/INTERP& ASSOCIATE POSTPROC S DIFF WORK STATION BASIC 18005 RAMÓN MELGAR METABOLIC 9 [facility] PANEL INC INC CALCIUM TOTAL THERAPEUT 17966 [facility] IC 9 [facility] PROPHYLAC TIC/DX INJECTION SUBQ/IM SMR PRIM 41099 [facility] SRC [address] [place] [address] GRAM/GIEM SA STAIN BCT FUNGI/GAYATRI L CUL BACT 40203 [facility] XCPT 9 [facility] URINE BLOOD/STO OL AEROBIC ISOL RADEX 57063 CNTRL GRACIE UREÑA, SPINE 9 RADIOLOGY J LUMBOSACR AL 2/3 VIEWS ANES 60362 GRACIE RODRIGUEZ, INTEG 9 MEDICAL RUI MUSC & SERVICES NRV HEAD NECK&POST ERIOR TRUNK EXCISION 07397 [facility] PILONIDAL 9 Y Y HOSPITAL HOSPITAL CYST/SINU S EXTENSIVE EXCISION 95406 GRACIE GARRETT H PILONIDAL 9 MEDICAL D SERV CYST/SINU FOUNDATIO S SIMPLE INJECTION J2175 [facility] 9 Y Y MEPERIDIN [facility] E HCL PER 100 MG RINGERS J7120 [facility] LACTATE 9 Y Y INFUSION [facility] UP TO 1000 CC INJECTION J1100 [facility] 9 Y Y DEXAMETHO [facility] SONE SODIUM PHOSPHATE 1 MG LEVEL III 77765 [facility] SURG 9 Y Y PATHOLOGY [facility] GROSS&CONCHIS ROSCOPIC EXAM INJECTION J3010 [facility] FENTANYL 9 Y Y CITRATE [facility] 0.1 MG UNCLASSIF J3490 [facility] IED DRUGS 9 Y Y [facility] INJECTION J2250 [facility] 9 Y Y MIDAZOLAM [facility] HCL PER 1 MG INJECTION J2270 [facility] MORPHINE 9 Y Y SULFATE [facility] UP TO 10 MG INJECTION J2405 [facility] PER 1 MG HEPATIC 74276 [facility] FUNCTION 9 [facility] PANEL INJECTION J2765 [facility] 9 Y Y METOCLOPR [facility] AMIDE HCL UP TO 10 MG INFUSION J7030 [facility] NORMAL 9 Y Y SALINE [facility] SOLUTION 1000 CC INJECTION J1200 [facility] UP TO 50 MG INJECTION J1885 [facility] 9 Y Y KETOROLAC [facility] TROMETHAM INE PER 15 MG MYOCRD 22358 CARDIOLOG DINO, PRFUJ IMG 8 Y EMILIE Mckeon TOMOG ASSOCIATE SPECT ENVIRONMENTAL MANAGER S OF STD [place] CV STRS 03905 CARDIOLOG DINO, TST 8 Y EMILIE Mckeon XERS&/OR ASSOCIATE RX CONT S OF ECG [place] W/SI&R MYOCRD 07108 CARDIOLOG DINO, PRFUJ STD 8 Y EMILIE Mckeon WALL ASSOCIATE MOTION S OF QUAL/LOUIE [place] STD MYOCRD 48360 CARDIOLOG DINO, PRFUJ STD 8 Y EMILIE Mckeon EJEC FXJ ASSOCIATE S OF [place] LIPID 82979 [facility] PANEL 8 N N [facility] COLLECTIO 67768 [facility] N VENOUS 8 N N BLOOD [facility] URE BLOOD 81801 [facility] COUNT 8 N N COMPLETE [facility] AUTO&AUTO [facility] DIFRNTL WBC COMPREHEN 88046 [facility] SIVE 8 N N [facility] COMPREHEN 54317 OFFICE OFFICE SIVE 8 [facility] METABOLIC DIAGNOSTI DIAGNOSTI PANEL C C SERVICES SERVICES ECG 50245 CARDIOLOG DINO, ROUTINE 8 Y EMILIE Mckeon ECG ASSOCIATE W/LEAST S OF 12 LDS [place] W/I&R ECG 40665 [facility] ROUTINE 8 N N ECG [facility] W/[facility] 12 [facility] TRCG ONLY W/O I&R CREATINE 61396 [facility] KINASE 8 N N TOTAL [facility] INITIAL 02178 [facility] OBSERVATI 8 N N ON [facility] CARE/DAY [facility]ITAL HOSPITAL 30 MINUTES BLOOD 84692 [facility] COUNT 8 N N COMPLETE [facility] AUTO&AUTO [facility] [place] [address] [facility] TROPONIN 8 N N QUANTITAT [facility] RADIOLOGI 13502 [facility] CELLARO C 8 JEFFY - YORBA, EXAMINATI EMERGENCY BLANCO ON CHEST PHYS INC M [place] FRONTAL COLLECTIO 50295 [facility] N VENOUS 8 N N BLOOD [facility] URE ECG 85586 [facility] CELLARO ROUTINE 8 JEFFY - YORBA, ECG EMERGENCY BLANCO W/LEAST PHYS INC M 12 LDS I&R ONLY COMPREHEN 55391 [facility] SIVE 8 N N [facility] CREATINE 34905 [facility] KINASE MB 8 N N FRACTION [facility] AMB A0427 [facility] SERVICE 8 N-DIANE N-DIANE ALS CO EMS CO EMS EMERGENCY TRANSPORT LEVEL 1 GROUND A0425 [facility] N-DIANE N-DIANE PER CO EMS CO EMS STATUTE MILE RADIOLOGI 70217 [facility] AHMED, C 8 JEFFY SMITH EXAMINATI EMERGENCY A ON CHEST PHYS INC [place] FRONTAL ECG 95832 [facility] AHMED, ROUTINE 8 JEFFY SMITH ECG EMERGENCY A W/LEAST PHYS INC 12 LDS I&R ONLY Encounters Encounter Start End Date Code Location Performer Type Date EMERGENCY 04585 [facility] DEPT 7 7 EMERGENCY VISIT PHYS PSC HIGH SEVERITY& THREAT [facility] RAMÓN - 7 7 [facility] OUTPATIEN INC T EMERGENCY 30939 [facility] 7 7 PHYSICIAN U DEPARTMEN S, PLLC T VISIT HIGH/URGE NT SEVERITY EMERGENCY 57561 RAMÓN 7 7 [facility] DEPARTMEN INC T VISIT LOW/MODER SEVERITY EMERGENCY 10830 [facility] D[facility] 7 7 PHYSICIAN DEPARTMEN S, PLLC T VISIT MODERATE SEVERITY HOSPITAL RAMÓN - 7 7 [facility] OUTPATIEN INC T EMERGENCY 69411 RAM[facility] 7 7 [facility] DEPARTMEN INC T VISIT LOW/MODER SEVERITY EMERGENCY 22893 [facility] 7 7 JEFFY DEPARTMEN EMERGENCY T VISIT PHYS HIGH/URGE NT SEVERITY HOSPITAL RAMÓN - 7 7 [facility] OUTPATIEN INC T EMERGENCY 70914 [facility] 7 7 [facility] DEPARTMEN INC T VISIT LOW/MODER SEVERITY EMERGENCY 17803 [facility] 7 7 PHYSICIAN DEPARTMEN S, PLLC T VISIT MODERATE SEVERITY [facility] 7 7 [facility] OUT[facility]EN [facility] EMERGENCY 24073 [facility] 7 7 NURSE DEPARTMEN PRACTITIO T VISIT NER GR HIGH/URGE NT SEVERITY OFFICE 43361 [facility] 7 7 [place] T NEW 30 PHYSICIAN MINUTES S ASSIST [facility]OSP[facility] - 7 7 [facility] OUTPATIEN [facility] T HOSPITALS EMERGENCY 83938 [facility] 7 7 [place] OF [place] DEPARTMEN PHYSICIAN T VISIT S MODERATE SEVERITY OFFICE 90534 [facility]ENN[facility]ER GRUBER [facility] 7 7 PHYSICIAN T VISIT PRACTICE 15 L MINUTES OFFICE 65596 [facility] 7 7 PHYSICIAN T NEW 30 PRACTICE MINUTES L EMERGENCY 23715 [facility] 7 7 JEFFY DEPARTMEN EMERGENCY T VISIT PHYS MODERATE SEVERITY OFFICE 06754 [facility] 7 7 MEDICAL T NEW 45 SERV MINUTES FOUNDATIO N EMERGENCY 89553 6 6 [facility] DEPARTMEN E T VISIT HOSPITALS HIGH/URGE NT SEVERITY EMERGENCY 96372 GRACIE DELAROSA 6 6 MEDICAL DEPARTMEN SERV T VISIT FOUNDATIO MODERATE N SEVERITY [facility]OS[facility] - 6 6 [facility] OUT[facility]EN [facility] HOSPITALS EMERGENCY 56434 6 6 [facility] DEPARTMEN E T VISIT HOSPITALS HIGH/URGE NT SEVERITY [facility] - 6 6 [facility] OUTPATIEN E T HOSPITALS EMERGENCY 03715 [facility] 6 6 [place] DEPARTMEN PHYSICIAN T VISIT S ASSIST LOW/MODER SEVERITY [facility] [place] [address] 6 N OUTPATIEN COMMUNTIY T HOSPITA EMERGENCY 16659 JOESPH MELGAR 6 6 JEFFY DEPARTMEN EMERGENCY T VISIT PHYS HIGH/URGE NT SEVERITY EMERGENCY 85423 GRACIE CHAU 6 6 MEDICAL DEPARTMEN SERV T VISIT FOUNDATIO LOW/MODER N SEVERITY [facility] - 6 6 [facility] OUTPATIEN E T HOSPITALS EMERGENCY 64149 6 6 [facility] DEPARTMEN E T VISIT HOSPITALS LOW/MODER SEVERITY OFFICE 42284 RODRIGUEZLENIN MALU YOU OUTPATIEN 6 6 PHYSICIAN T NEW 30 PRACTICE MINUTES L EMERGENCY 20190 6 6 [facility] DEPARTMEN E T VISIT HOSPITALS LOW/MODER SEVERITY EMERGENCY 56441 GRACIE HENRY 6 6 MEDICAL DEPARTMEN SERV T VISIT FOUNDATIO MODERATE N SEVERITY [facility]OS[facility] - 6 6 [facility] OUTPATIEN E T HOSPITALS EMERGENCY 07995 [facility] 6 6 [facility] DEPARTMEN INC T VISIT LIMITED/M INOR PROB EMERGENCY 63223 [facility] 6 6 PHYSICIAN DEPARTMEN S, PLLC T VISIT MODERATE SEVERITY HOSPITAL RAMÓN - 6 6 [facility] OUTPATIEN INC T EMERGENCY 88288 [facility] ADRIANAMOHSEN 6 6 JEFFY OSIEL DEPARTMEN EMERGENCY T VISIT PHYS MODERATE SEVERITY HOSPITAL RAMÓN - 6 6 [facility] OUTPATIEN INC T EMERGENCY 52515 [facility] 6 6 [facility] T VISIT LIMITED/M INOR PROB EMERGENCY 44533 [facility] 6 6 PHYSICIAN Priya GONCALVES [facility] T VISIT MODERATE SEVERITY EMERGENCY 49264 [facility] 6 6 JEFFY ELO [facility] EMERGENCY T VISIT PHYS HIGH/URGE NT SEVERITY HOSPITAL RAMÓN - 6 6 [facility] OUTPATIEN INC T EMERGENCY 14581 RAMÓN 6 6 [facility] T VISIT LIMITED/M INOR PROB EMERGENCY 69363 [facility] VALENTINE 6 6 PHYSICIAN KENYATTA [facility] T VISIT MODERATE SEVERITY EMERGENCY 56593 [facility] 6 6 JEFFY IVANNA [facility] EMERGENCY T VISIT PHYS MODERATE SEVERITY HOSPITAL RAMÓN - 6 6 [facility] OUTPATIEN INC T OFFICE 99418 [facility] 6 6 MISAELY KIEL T VISIT ADULT & 25 PED MINUTES HOSPITAL RAMÓN - 6 6 [facility] OUTPATIEN INC T HOSPITAL RAMÓN - 6 6 [facility] OUTPATIEN INC T EMERGENCY 22102 [facility] OCHOA 6 6 PHYSICIAN CONCHIS [facility] T VISIT HIGH/URGE NT SEVERITY HOSPITAL RAMÓN - 6 6 [facility] OUTPATIEN INC T OFFICE 96965 [facility] 6 6 KENTNIEVESY KIEL T VISIT ADULT & 25 PED MINUTES OFFICE 43517 [facility] 6 6 MISAELY KIEL ION ADULT & NEW/ESTAB PED PATIENT 60 MIN EMERGENCY 38319 [facility] 6 6 JEFFY JENNI [facility] EMERGENCY T VISIT PHYS MODERATE SEVERITY EMERGENCY 54821 [facility] ARNOLD 6 6 JEFFY OSIEL DEPARTMEN EMERGENCY T VISIT PHYS MODERATE SEVERITY EMERGENCY 76249 [facility] ESPINOZA BAB 6 6 JEFFY DEPARTMEN EMERGENCY T VISIT PHYS MODERATE SEVERITY EMERGENCY 33399 [facility] VALENTINE 6 6 PHYSICIAN KENYATTA [facility], [facility] T VISIT MODERATE SEVERITY EMERGENCY 53313 [facility]N 6 6 [facility] DEPARTMEN INC T VISIT LOW/MODER SEVERITY HOSPITAL RAMÓN - 6 6 [facility] OUTPATIEN INC T EMERGENCY 26782 [facility] 6 6 [facility] DEPARTMEN INC T VISIT LOW/MODER SEVERITY HOSPITAL RAMÓN - 6 6 [facility] OUTPATIEN INC T EMERGENCY 29068 [facility] MAJOR 6 6 PHYSICIAN [facility] S, [facility] T VISIT MODERATE SEVERITY HOSPITAL RAMÓN - 6 6 [facility] OUTPATIEN INC T OFFICE 03135 EULAERICA MILLER [facility] OUTPATIEN 6 6 MD LUCI, T NEW 45 PSC MINUTES OFFICE 59141 RAMÓN OUTPATIEN 6 6 [facility] T VISIT INC 10 MINUTES EMERGENCY 91348 [facility] 6 6 PHYSICIAN CONCHIS [facility] T VISIT MODERATE SEVERITY EMERGENCY 95795 RAMÓN 6 6 [facility] DEPARTMEN INC T VISIT LOW/MODER SEVERITY HOSPITAL RAMÓN - 6 6 [facility] OUTPATIEN INC T EMERGENCY 22416 RAMÓN 5 5 [facility] DEPARTMEN INC T VISIT LOW/MODER SEVERITY HOSPITAL RAMÓN - 5 5 [facility] OUTPATIEN INC T EMERGENCY 14411 [facility] 5 5 PHYSICIAN [facility] T VISIT MODERATE SEVERITY EMERGENCY 85992 [facility] 5 5 JEFFY LIZA [facility] EMERGENCY T VISIT PHYS HIGH/URGE NT SEVERITY HOSPITAL [facility] - 5 5 [facility] T EMERG[facility] 13515 GRACIE BEARVER 5 5 MEDICAL ALEX [facility] SERV T VISIT FOUNDATIO MODERATE N SEVERITY HOSPITAL RAMÓN - 5 5 [facility] OUTPATIEN INC T EMERGENCY 39622 [facility] DEPT 5 5 PHYSICIAN VISIT S, PLLC HIGH SEVERITY& THREAT FUNCJ EMERGENCY 45409 [facility] 5 5 JEFFY [facility] EMERGENCY T VISIT PHYS MODERATE SEVERITY [facility]OS[facility] COMM[facility] T HOSPITA EMERGENCY 72165 [facility] CELLARO 5 5 JEFFY - YORBA [facility] EMERGENCY PAT T VISIT PHYS MODERATE SEVERITY HOSPITAL RAMÓN - 5 5 [facility] OUTPATIEN [facility] RAMÓN - 5 5 [facility] T EMERGENCY 28464 [facility] 5 5 JEFFY ELO [facility] EMERGENCY T VISIT PHYS MODERATE SEVERITY EMERGENCY 21469 RAMÓN [facility] 5 5 [facility] T VISIT P LOW/MODER SEVERITY EMERGENCY 43388 [facility] 4 4 JEFFY [facility] EMERGENCY T VISIT PHYS MODERATE SEVERITY OFFICE 66534 VU WOMACK [facility] 4 4 KENYATTA YOU T VISIT 25 MINUTES EMERGENCY 65570 [facility] 4 4 JEFFY PAT [facility] EMERGENCY T VISIT PHYS MODERATE SEVERITY EMERGENCY 68352 RAMÓN 4 4 [facility] T VISIT LOW/MODER SEVERITY EMERGENCY 53958 DON [facility] 4 4 [facility] T VISIT MODERATE SEVERITY HOSPITAL RAMÓN - 4 4 [facility] OUTPATIEN INC T EMERGENCY 46901 KANDI MILES 4 4 DEPARTMEN T VISIT MODERATE SEVERITY EMERGENCY 25615 KANDI MILES 4 4 DEPARTMEN T VISIT MODERATE SEVERITY EMERGENCY 05276 CELLAROSI CELLAROSI 4 4 - YORBA - YORBA DEPARTMEN PAT PAT T VISIT HIGH/URGE NT SEVERITY EMERGENCY 22798 ALFARIS ALFARIS 4 4 [facility] DEPARTMEN T VISIT HIGH/URGE NT SEVERITY EMERGENCY 59237 DON [facility]CHO[facility] 4 4 [facility] DEPARTMEN T VISIT MODERATE SEVERITY HOSPITAL RAMÓN - 3 3 [facility]ER[facility] 99411 CHUY II CHUY II 3 3 THO THO DEPARTMEN T VISIT MODERATE SEVERITY EMERGENCY 60881 SOKAN BAB SOKAN BAB 3 3 DEPARTMEN T VISIT MODERATE SEVERITY EMERGENCY 11583 ALFARIS ALFARIS 3 3 [facility] DEPARTMEN T VISIT MODERATE SEVERITY EMERGENCY 48212 RECHTIN RECHTIN 3 3 [facility] DEPARTMEN T VISIT MODERATE SEVERITY EMERGENCY 49725 KANDI MILES 3 3 DEPARTMEN T VISIT MODERATE SEVERITY EMERGENCY 13809 OMARIKAN BAB SOKAN BAB 3 3 DEPARTMEN T VISIT MODERATE SEVERITY EMERGENCY 04148 YARIEL MILES 3 3 EMERGENCY DEPARTMEN SERVICES T VISIT HIGH/URGE NT SEVERITY EMERGENCY 66511 STACK HEIDI STACK HEIDI 3 3 DEPARTMEN T VISIT HIGH/URGE NT SEVERITY EMERGENCY 49071 YARIEL WHITAKER 3 3 EMERGENCY DEPARTMEN SERVICES T VISIT MODERATE SEVERITY EMERGENCY 81736 YARIEL BARROSO DEPT 3 3 EMERGENCY JAM VISIT SERVICES HIGH SEVERITY& THREAT FUNCJ EMERGENCY 98455 CAREY PATINO 3 3 SET SET DEPARTMEN T VISIT HIGH/URGE NT SEVERITY EMERGENCY 73655 CHUY II CHUY II 3 3 THO THO DEPARTMEN T VISIT MODERATE SEVERITY EMERGENCY 87228 RAMÓN 3 3 [facility] DEPARTMEN INC T VISIT LIMITED/M INOR PROB EMERGENCY 73572 DON OCHOA 3 3 CONCHIS CONCHIS DEPARTMEN T VISIT HIGH/URGE NT SEVERITY HOSPITAL RAMÓN - 3 3 [facility] OUTPATIEN INC T EMERGENCY 84720 YARIEL COTE DEPT 3 3 EMERGENCY III KENYON VISIT SERVICES HIGH SEVERITY& THREAT FUNCJ EMERGENCY 05356 ABNER MAT ABNER MAT 2 2 DEPARTMEN T VISIT MODERATE SEVERITY EMERGENCY 54706 YARIEL GUSTAFSON 2 2 EMERGENCY ADT JONATHAN DEPARTMEN SERVICES T VISIT MODERATE SEVERITY OFFICE 22374 KATT YOU CONSULTAT 2 2 ION NEW/ESTAB PATIENT 60 MIN EMERGENCY 75515 FOX LISA FOX LISA 2 2 DEPARTMEN T VISIT MODERATE SEVERITY OFFICE 81938 MIGDALIA NEGRON OUTPATIEN 2 2 CLEMENTINE CLEMENTINE T VISIT 15 MINUTES EMERGENCY 57525 PUND CHR PUND CHR 2 2 DEPARTMEN T VISIT MODERATE SEVERITY EMERGENCY 96529 CHUY II CHUY II 2 2 THO THO DEPARTMEN T VISIT MODERATE SEVERITY EMERGENCY 89223 OSWALDO CHACON 2 2 JULIO JULIO DEPARTMEN T VISIT MODERATE SEVERITY EMERGENCY 56410 RAMÓN 2 2 [facility] DEPARTMEN INC T VISIT LOW/MODER SEVERITY EMERGENCY 98971 DON OCHOA 2 2 CONCHIS CONCHIS DEPARTMEN T VISIT MODERATE SEVERITY HOSPITAL RAMÓN - 2 2 [facility] OUTPATIEN INC T EMERGENCY 71686 CHUY II CHUY II 2 2 THO THO DEPARTMEN T VISIT HIGH/URGE NT SEVERITY OFFICE 49942 OZ JR OZ JR OUTPATIEN 2 2 KENYON KENYON T NEW 30 MINUTES EMERGENCY 23870 ROCAEL COTE DEPT 2 2 III KENYON III KENYON VISIT HIGH SEVERITY& THREAT FUNCJ OFFICE 49515 MIGDALIA NEGRON OUTPATIEN 2 2 CLEMENTINE CLEMENTINE T VISIT 15 MINUTES EMERGENCY 89486 RAMÓN 2 2 [facility] DEPARTMEN INC T VISIT MODERATE SEVERITY HOSPITAL RAMÓN - 2 2 [facility] OUTPATIEN INC T EMERGENCY 72090 DEJUAN ZAIDI 2 2 GAR GAR DEPARTMEN T VISIT MODERATE SEVERITY OFFICE 74674 NAVARRO PAD NAVARRO PAD OUTPATIEN 2 2 T VISIT 15 MINUTES EMERGENCY 51998 CHUY T CHUY T 2 2 DEPARTMEN T VISIT MODERATE SEVERITY EMERGENCY 59830 RECHTIN RECHTIN 2 2 BUILDING MOVER BUILDING MOVER DEPARTMEN T VISIT HIGH/URGE NT SEVERITY OFFICE 22047 LI LI OUTPATIEN 2 2 KIEL KIEL T VISIT 15 MINUTES OFFICE 61420 NAVARRO PAD [facility] PAD OUTPATIEN 2 2 T VISIT 15 MINUTES EMERGENCY 35652 CELLAROSI CELLAROSI 2 2 - YORBA - YORBA DEPARTMEN PAT PAT T VISIT HIGH/URGE NT SEVERITY EMERGENCY 22145 YARIEL MARTIN 2 2 EMERGENCY DEPARTMEN SERVICES T VISIT HIGH/URGE NT SEVERITY OFFICE 42692 MARY ODESSA MARY ODESSA OUTPATIEN 2 2 T VISIT 15 MINUTES EMERGENCY 59050 CHUY T CHUY T 2 2 DEPARTMEN T VISIT MODERATE SEVERITY OFFICE 55869 LI LI OUTPATIEN 2 2 KIEL KIEL T VISIT 15 MINUTES EMERGENCY 90565 DOWNS PAT DOWNS PAT 2 2 DEPARTMEN T VISIT HIGH/URGE NT SEVERITY EMERGENCY 33626 [place] 2 2 [facility] T VISIT MODERATE SEVERITY HOSPITAL [place] - 2 2 [facility] T EMERGENCY 46730 GRACIE KIRKLAND 2 2 MEDICAL TEREZA DEPARTMEN SERV T VISIT FOUNDATIO MODERATE SEVERITY EMERGENCY 70472 YARIEL ARANDA 2 2 EMERGENCY PAT DEPARTMEN SERVICES T VISIT MODERATE SEVERITY OFFICE 92315 GUILLERMO LI CONSULTAT 2 2 KIEL KIEL ION NEW/ESTAB PATIENT 40 MIN OFFICE 81056 MOIRA PIZARRO OUTPATIEN 2 2 MITZI MITZI T NEW 20 MINUTES OFFICE 29643 POWELL POWELL OUTPATIEN 2 2 OSBALDO OSBALDO T VISIT 15 MINUTES EMERGENCY 23118 RAMÓN 2 2 [facility] DEPARTMEN INC T VISIT LOW/MODER SEVERITY EMERGENCY 61831 YARIEL MERINOEY 2 2 EMERGENCY CONCHIS DEPARTMEN SERVICES T VISIT HIGH/URGE NT SEVERITY HOSPITAL RAMÓN - 2 2 [facility] OUTPATIEN INC T EMERGENCY 95182 CHUY T CHUY T 2 2 DEPARTMEN T VISIT MODERATE SEVERITY [facility]OSP[facility] [place] - 2 2 [facility] T OFFICE 71848 POWELL POWELL OUTPATIEN 2 2 OSBALDO OSBALDO T VISIT 15 MINUTES EMERGENCY 95190 GRACIE ROMAN 2 2 MEDICAL MECHANICAL ESTIMATOR DEPARTMEN SERV T VISIT FOUNDATIO HIGH/URGE NT SEVERITY OFFICE 21380 AICHA CARTAGENA AICHA MITZI OUTPATIEN 2 2 T VISIT 15 MINUTES OFFICE 02687 MARY ODESSA MARY ODESSA OUTPATIEN 2 2 T NEW 20 MINUTES OFFICE 44081 MIGDALIA NEGRON OUTPATIEN 2 2 CLEMENTINE CLEMENTINE T VISIT 15 MINUTES EMERGENCY 80109 OSWALDO CHACON 2 2 JULIO JULIO DEPARTMEN T VISIT MODERATE SEVERITY HOSPITAL RAMÓN - 2 2 [facility] OUTPATIEN INC T EMERGENCY 32852 YARIEL OCHOA 2 2 EMERGENCY CONCHIS DEPARTMEN SERVICES T VISIT HIGH/URGE NT SEVERITY EMERGENCY 25523 RAMÓN 2 2 [facility] DEPARTMEN INC T VISIT LOW/MODER SEVERITY EMERGENCY 95384 YARIEL TIDWELL 2 2 EMERGENCY CAR DEPARTMEN SERVICES T VISIT LIMITED/M INOR PROB EMERGENCY 43683 VERONICA MARTIN 2 2 [facility] DEPARTMEN T VISIT HIGH/URGE NT SEVERITY [facility] 2 N OUTPATIEN COMMUNTIY T HOSPITA OFFICE 76733 [facility] PAD [facility] T VISIT 15 MINUTES EMERGENCY 96149 YARIEL OCHOA 2 2 EMERGENCY CONCHIS DEPARTMEN SERVICES T VISIT HIGH/URGE NT SEVERITY EMERGENCY 45208 RAMÓN 2 2 [facility] DEPARTMEN INC T VISIT LOW/MODER SEVERITY [facility]OSPITAL RAM[facility]N - 2 2 [facility] 54390 DEJUAN ZAIDI 2 2 GAR GAR DEPARTMEN T VISIT MODERATE SEVERITY EMERGENCY 08217 YARIEL TIDWELL 2 2 EMERGENCY CAR DEPARTMEN SERVICES T VISIT MODERATE SEVERITY OFFICE 72582 [facility] CO[facility] SHARI SHARI T VISIT 15 MINUTES EMERGENCY 66510 OSWALDO CHACON 1 1 JULIO JULIO DEPARTMEN T VISIT MODERATE SEVERITY EMERGENCY 52768 UNIVERSIT 1 1 Y [facility] H[facility] T VISIT MODERATE SEVERITY HOSPITAL UNIVERSIT - 1 1 Y OUTPATI HOSPITAL T HOSPITAL [place] - 1 1 [facility] T EMERGENCY 93661 [place] 1 1 [facility] T VISIT MODERATE SEVERITY OFFICE 43803 NAVARRO PAD NAVARRO PAD [facility]KE [facility] 1 1 T NEW 20 MINUTES EMERGENCY 33079 OSWALDO CHACON 1 1 JULIO JULIO [facility] T VISIT HIGH/URGE NT SEVERITY EMERGENCY 00386 DONHUNTER OCHOA 1 1 CONCHIS CONCHIS [facility] T VISIT HIGH/URGE NT SEVERITY HOSPITAL RAMÓN - 1 1 [facility] 52787 RAMÓN 1 1 [facility] INC T VISIT LOW/MODER SEVERITY OFFICE 27132 ESCALANTE JULIO ESC[facility]ANTE JULIO [facility] 1 T VISIT 15 MINUTES EMERGENCY 78172 [facility] TEODORO 1 1 [facility] CARE T VISIT PHYSICANS MODERATE M SEVERITY EMERGENCY 48506 YARIEL CELLAROSI 1 1 EMERGENCY - [facility] PAT T VISIT MODERATE SEVERITY EMERGENCY 65268 UNIVERSIT 1 1 Y [facility] H[facility] T VISIT MODERATE SEVERITY HOSPITAL UNIVERSIT - 1 1 Y [facility] T OFFICE 54330 ESCALANTE JULIO ESCALANTE JULIO [facility] 1 1 T VISIT 15 MINUTES EMERGENCY 88000 UNIVERSIT 1 1 Y [facility] H[facility] T VISIT MODERATE SEVERITY HOSPITAL UNIVERSIT - 1 1 Y [facility] T EMERGENCY 41578 [facility] MERCANTONINOT 1 1 [facility] CARE T VISIT PHYSICANS HIGH/URGE M NT SEVERITY OFFICE 76023 VENGUSWAM VENGUSWAM [facility]LAKE [facility] 1 1 Y [facility] Y [facility] T VISIT 15 MINUTES OFFICE 16677 ESCALANTE JULIO ESCALANTE JULIO OUTPATIEN 1 1 T NEW 30 MINUTES EMERGENCY 86108 GRACIE GOINS JESSICA 1 1 MEDICAL DEPARTMEN SERV T VISIT FOUNDATIO MODERATE SEVERITY HOSPITAL UNIVERSIT - 1 1 [facility] EMERG[facility] 10876 GRACIE MONIQUE 1 1 MEDICAL SON DEPARTMEN SERV T VISIT FOUNDATIO MODERATE SEVERITY EMERGENCY 33686 UNIVERSIT 1 1 Y [facility] H[facility] T VISIT LOW/MODER SEVERITY EMERGENCY 11656 YARIEL FERNANDEZ 1 1 EMERGENCY [facility] T VISIT HIGH/URGE NT SEVERITY EMERGENCY 97604 UNIVERSIT 1 1 Y [facility] HOSP[facility] T VISIT LOW/MODER SEVERITY HOSPITAL UNIVERSIT - 1 1 [facility] EMERG[facility]Y 22900 GRACIE WHARTON JR 1 1 MEDICAL [place] DEPARTMEN SERV T VISIT FOUNDATIO MODERATE SEVERITY HOSPITAL RAMÓN - 1 1 MEM H[facility] OUTPATIEN INC T EMERGENCY 18447 YARIEL GONZALEZ 1 1 EMERGENCY [facility] T VISIT HIGH/URGE NT SEVERITY EMERGENCY 58950 RAMÓN 1 1 MEM [facility] INC T VISIT LOW/MODER SEVERITY EMERGENCY 58515 [facility] 1 1 JEFFY [facility] EMERGENCY T VISIT PHYS MODERATE SEVERITY EMERGENCY 66286 YARIEL SHEETS 1 1 EMERGENCY [facility] DEPARTMEN SERVICES T VISIT MODERATE SEVERITY EMERGENCY 05485 YARIEL OCHOA 1 1 EMERGENCY [facility] T VISIT HIGH/URGE NT SEVERITY EMERGENCY 57807 RAMÓN 1 1 [facility] INC T VISIT LIMITED/M IN[facility] HOSPITAL RAMÓN - 1 1 [facility] OUTPATIEN INC T EMERGENCY 22388 [place] 1 [facility] LOW/MODER SEVERITY EMERGENCY 49700 YARIEL DOWNING 1 1 EMERGENCY - [facility] DEPARTMEN SERVICES PAT T VISIT HIGH/URGE NT SEVERITY [facility] [place] [address] 1 N OUTPATIEN [facility] 38040 GRACIE MARC 1 1 MEDICAL MITZI DEPARTMEN SERV T VISIT FOUNDATIO MODERATE SEVERITY [facility]OSPITAL [place] [address] 1 HOSPITAL OUTPATIEN T EMERGENCY 57701 [facility] R[facility] 1 [facility] VISIT PHYS MODERATE SEVERITY EMERGENCY 86790 [place] [address] 1 HOSPITAL DEPARTMEN T VISIT LOW/MODER SEVERITY EMERGENCY 67695 YARIEL GALO 1 1 EMERGENCY [facility] SERVICES T VISIT MODERATE SEVERITY EMERGENCY 41727 YARIEL ZAIDI DEPT 1 1 EMERGENCY GAR VISIT SERVICES HIGH SEVERITY& THREAT FUNCJ EMERGENCY 08567 [facility] 1 1 N [facility] COMMUNITY T VISIT HOSPITA MODERATE SEVERITY [facility]OSPITAL [facility] 98298 VENGUSWAM VENGUSWAM OUTPATIEN 1 1 Y CATARINA Y CATARINA T VISIT 25 MINUTES [facility] [place] [id number] 1 N OUTPATIEN [facility] T HOSPITA OFFICE 96086 VENGUSWAM VENGUSWAM OUTPATIEN 1 1 Y CATARINA Y CATARINA T NEW 30 MINUTES OFFICE 10785 [facility] RABLEELAE OUTPATIEN 1 1 N URGENT ABD T VISIT CARE 15 MINUTES EMERGENCY 68660 YARIEL GALO 1 1 [facility]ISIT HIGH/URGE NT SEVERITY OFFICE 06121 [facility]RG[facility] A[facility] T VISIT CARE 15 MINUTES HOSPITAL [place] - 1 1 N OUTPATIEN [facility] E[facility] - 1 1 N OUTPATIEN [facility] HOSPITA OFFICE 74471 ESSIEKai SPICER OUTPATIEN 1 1 N URGENT ABD T VISIT CARE 15 MINUTES OFFICE 78560 ESSIEKai SPICER OUTPATIEN 1 1 N URGENT ABD T VISIT CARE 15 MINUTES EMERGENCY 29042 RAMÓN 1 1 [facility] DEPARTMEN INC T VISIT LOW/MODER SEVERITY EMERGENCY 12083 YARIEL GONZALEZ 1 1 EMERGENCY DEPARTMEN SERVICES T VISIT HIGH/URGE NT SEVERITY HOSPITAL RAMÓN - 1 1 [facility] OUTPATIEN INC T EMERGENCY 31643 YARIEL GALO 1 1 EMERGENCY [facility] DEPARTMEN SERVICES T VISIT MODERATE SEVERITY OFFICE 98503 GRACIE GARRETT Timur OUTPATIEN 1 1 MEDICAL T VISIT SERV 10 FOUNDATIO MINUTES OFFICE 83070 [facility] 1 1 N URGENT ABD T VISIT CARE 15 MINUTES OFFICE 98888 [facility] 1 1 N URGENT ABD T VISIT CARE 15 MINUTES OFFICE 88797 [facility] OUTPATIEN 0 0 N URGENT ABD T VISIT CARE [address]ES [address] [facility] CONSULTAT 0 0 ANNITA GALINDO CARDIOLOG NEW/ESTAB Y CLINIC PATIENT 30 MIN OFFICE 89356 ESSIEKai SPICER OUTPATIEN 0 0 N URGENT ABD T VISIT CARE 15 MINUTES EMERGENCY 43570 YARIEL GALO 0 0 EMERGENCY CH[facility] DEPARTMEN SERVICES T VISIT MODERATE SEVERITY HOSPITAL [facility] 0 N OUTPATIEN [facility] - 0 0 N OUTPATIEN [facility] HOSPITA OFFICE 77120 [facility] DANNIELLE OUTPATIEN 0 0 N URGENT ABD T VISIT CARE 15 MINUTES HOSPITAL [facility] - 0 0 N OUTPATIEN [facility] - 0 0 N OUTPATIEN COMMUNITY T HOSPITA OFFICE 60289 [facility] DANNIELLE OUTPATIEN 0 0 N URGENT ABD T VISIT CARE 15 MINUTES EMERGENCY 14308 RAMÓN 0 0 MEM [facility] DEPARTMEN INC T VISIT LOW/MODER SEVERITY EMERGENCY 89861 YARIEL COTE 0 0 EMERGENCY III [place] DEPARTMEN SERVICES T VISIT HIGH/URGE NT SEVERITY HOSPITAL RAMÓN - 0 0 [facility] OUTPATIEN INC T OFFICE 65293 [facility] OUTPATI[facility] 0 0 [place] T VISIT ORTHOPAED 15 [facility] MINUTES OFFICE 85380 GARCÍA TRA GARCÍA TRA OUTPATIEN 0 0 T VISIT 10 MINUTES OFFICE 70784 [facility] DANNIELLE OUTPATIEN 0 0 N URGENT ABD T NEW 30 CARE MINUTES OFFICE 34677 [facility] GARC[facility] TRA OUTPATIEN 0 0 [place] T VISIT ORTHOPAED 15 [facility] MINUTES [facility] - 0 0 N OUTPATIEN [facility] 07263 [facility] 0 0 N DEPARTMEN COMMUNITY T VISIT HOSPITA MODERATE SEVERITY EMERGENCY 78527 YARIEL Griffin 0 0 EMERGENCY DEPARTMEN SERVICES T VISIT MODERATE SEVERITY EMERGENCY 35985 YARIEL ROBERTO DEPT 0 0 EMERGENCY DON VISIT SERVICES HIGH SEVERITY& THREAT [facility] RAMÓN - 0 0 [facility] OUTPATIEN INC T EMERGENCY 20697 YARIEL OCHOA, 0 0 EMERGENCY DANIELA S DEPARTMEN SERVICES T VISIT HIGH/URGE ASSOCIATE NT S SEVERITY EMERGENCY 71176 RAMÓN 0 0 [facility] DEPARTMEN INC T VISIT LOW/MODER SEVERITY HOSPITAL UNIVERSIT - 0 0 Y OUTPATIEN HOSPITAL T EMERGENCY 71769 GRACIE MOHAN 0 0 MEDICAL GAIL DEPARTMEN SERV T VISIT FOUNDATIO MODERATE SEVERITY EMERGENCY 43292 UNIVERSIT 0 0 Y [facility] HOSPITAL T VISIT LOW/MODER SEVERITY EMERGENCY 05783 YARIEL OCHOA, DEPT 0 0 EMERGENCY [facility] VISIT SERVICES HIGH SEVERITY& ASSOCIATE THREAT S FUNCJ EMERGENCY 77403 RAMÓN 0 0 [facility] DEPARTMEN INC T VISIT LOW/MODER SEVERITY HOSPITAL RAMÓN - 0 0 [facility] OUTPATIEN INC T EMERGENCY 04967 RAMÓN 0 0 [facility] DEPARTMEN INC T VISIT LOW/MODER SEVERITY EMERGENCY 05376 YARIEL GIL 0 0 EMERGENCY [facility] DEPARTMEN SERVICES T VISIT MODERATE SEVERITY HOSPITAL RAMÓN - 0 0 [facility] OUTPATIEN INC T HOSPITAL RAMÓN - 0 0 [facility] OUTPATIEN INC T EMERGENCY 72222 RAMÓN 0 0 [facility] DEPARTMEN INC T VISIT LIMITED/M INOR PROB EMERGENCY 36152 YARIEL OCHOA, 0 0 EMERGENCY [facility] DEPARTMEN SERVICES T VISIT HIGH/URGE ASSOCIATE NT S SEVERITY EMERGENCY 91157 [place] 0 0 [facility] T VISIT MODERATE SEVERITY EMERGENCY 29234 YARIEL WATT 0 0 EMERGENCY DEPARTMEN SERVICES T VISIT HIGH/URGE NT SEVERITY HOSPITAL [place] - 0 0 [facility] HOSPITAL T EMERGENCY 62260 YARIEL CHARLES, 0 0 EMERGENCY [facility] DEPARTMEN SERVICES T VISIT MODERATE ASSOCIATE SEVERITY S EMERGENCY 72082 YARIEL BARROSO, 0 0 EMERGENCY [facility] M DEPARTMEN SERVICES T VISIT HIGH/URGE ASSOCIATE NT S SEVERITY [facility]OSPITAL [place] - 0 0 [facility] T EMERGENCY 21913 [facility], 0 0 JEFFY SARAH DEPARTMEN EMERGENCY A T VISIT PHYS INC MODERATE SEVERITY EMERGENCY 75118 [facility], 0 0 JEFFY Mills DEPARTMEN EMERGENCY T VISIT PHYS INC MODERATE SEVERITY OFFICE 56686 MIGDALIA NEGRON, [facility] 0 0 BOY BRUNSON Kai T NEW 30 MINUTES EMERGENCY 62438 [facility] SUDEEP, 0 0 JEFFY Mills DEPARTMEN EMERGENCY T VISIT PHYS INC MODERATE SEVERITY EMERGENCY 58629 [facility] 0 0 HOSPITAL DEPARTMEN T VISIT MODERATE SEVERITY HOSPITAL [facility] - 0 0 [facility] EM[facility] 80333 [facility], 0 0 JEFFY Quinn DEPARTMEN EMERGENCY T VISIT SERV PC HIGH/URGE NT SEVERITY [facility]OSPITAL [place] - 0 0 [facility] T EMERGENCY 29270 [place] 0 0 [facility] T VISIT MODERATE SEVERITY EMERGENCY 50787 [facility] TROY, 0 0 JEFFY HUERTA DO, DEPARTMEN EMERGENCY NAREN O T VISIT PHYS INC MODERATE SEVERITY EMERGENCY 45712 [facility] 0 0 BAYLEE BARDALES DEPARTMEN EMERGENCY M T VISIT PHYS INC MODERATE SEVERITY EMERGENCY 24424 [facility] [place], 0 0 JEFFY HUERTA DO, DEPARTMEN EMERGENCY NAREN O T VISIT PHYS INC MODERATE SEVERITY [facility]OSPITAL [place] - 0 0 [facility] HOSPITAL T EMERGENCY 22281 [place] ENEIDA, 0 0 MEDICAL YOSELIN C DEPARTMEN SERV T VISIT FOUNDATIO LOW/MODER SEVERITY HOSPITAL [facility] - 0 0 [facility] T EMERGENCY 11956 [facility] 0 0 Y [facility] HOSPITAL T VISIT LIMITED/M INOR PROB EMERGENCY 40974 YARIEL BARROSO, 0 0 EMERGENCY VALERIE M [facility] SERVICES T VISIT MODERATE ASSOCIATE SEVERITY S EMERGENCY 00656 [facility] 0 0 JEFFY DEPARTMEN EMERGENCY T VISIT PHYS INC MODERATE SEVERITY EMERGENCY 34701 [facility] 0 0 JEFFY DEPARTMEN EMERGENCY T VISIT PHYS INC MODERATE SEVERITY EMERGENCY 30590 [facility] CELLAROSI 0 0 JEFFY - YORBA, [facility] EMERGENCY BLANCO T VISIT PHYS INC M MODERATE SEVERITY EMERGENCY 58181 [facility] 0 0 Y [facility] HOSPITAL T VISIT MODERATE SEVERITY HOSPITAL [facility] - 0 0 Y [facility]OSPITAL T EMERGENCY 83482 [facility] 0 JEFFY MERVIN M [facility] EMERGENCY T VISIT PHYS INC MODERATE SEVERITY HOSPITAL [place] - 0 0 [facility]OSPITAL T EMERGENCY 07197 [place] 0 0 [facility] T VISIT LOW/MODER SEVERITY HOSPITAL [place] - 0 0 [facility]OSPITAL T EMERGENCY 22300 [facility] 0 0 MEDICAL I, MORELIA DEPARTMEN SERV A T VISIT FOUNDATIO MODERATE SEVERITY EMERGENCY 95258 [place] 0 0 [facility] T VISIT LOW/MODER SEVERITY EMERGENCY 89050 [facility], T 9 9 JEFFY [facility] EMERGENCY T VISIT PHYS INC MODERATE SEVERITY HOSPITAL [place] - 9 9 [facility] HOSPITAL T EMERGENCY 40784 [place] 9 9 [facility] T VISIT LOW/MODER SEVERITY EMERGENCY 79410 [facility] [place], 9 9 JEFFY NAREN O DEPARTMEN EMERGENCY T VISIT PHYS INC MODERATE SEVERITY EMERGENCY 44186 [facility] SUDEEP, 9 9 JEFFY DANIELA Mills DEPARTMEN EMERGENCY T VISIT PHYS INC MODERATE SEVERITY EMERGENCY 63263 [facility] 9 9 HOSPITAL [facility] T VISIT LOW/MODER SEVERITY HOSPITAL [facility] - 9 9 [facility] T EMERGENC[facility] 17633 [facility] [place], 9 9 JEFFY HIEU DEPARTMEN EMERGENCY T VISIT PHYS INC HIGH/URGE NT SEVERITY EMERGENCY 14179 [facility] CHUY, T 9 9 JEFFY [facility] EMERGENCY T VISIT PHYS INC MODERATE SEVERITY EMERGENCY 05113 [facility], 9 9 JEFFY SMITH [facility] EMERGENCY A T VISIT PHYS INC MODERATE SEVERITY [facility] [place] - 9 9 [facility] T [facility]OSPITAL [place] - 9 9 [facility] T EMERGENCY 50902 [place] 9 9 [facility] T VISIT LOW/MODER SEVERITY EMERGENCY 63216 [facility], 9 9 JEFFY SMITH [facility] EMERGENCY A T VISIT PHYS INC MODERATE SEVERITY OFFICE 18571 [facility] CONSULTAT 9 9 , QUITA DEVLIN ION NEW/ESTAB PATIENT 40 MIN [facility]Y 45011 [facility] JEFFY , [facility] EMERGENCY SANJOYDEB T VISIT PHYS INC MODERATE SEVERITY HOSPITAL [facility] - 9 9 [facility] T EMERGENC[facility] 23645 [facility] 9 9 HOSPITAL [facility] T VISIT LOW/MODER SEVERITY HOSPITAL [place] - 9 9 [facility] OUTPATIEN INC T EMERGENCY 05037 [place] 9 9 [facility] INC T VISIT LOW/MODER SEVERITY EMERGENCY 30708 YARIEL OCHOA, 9 9 EMERGENCY DANIELA S [facility] SERVICES T VISIT MODERATE ASSOCIATE SEVERITY S EMERGENCY 12256 [facility], 9 9 JEFFY PRIETO DEPARTMEN EMERGENCY T VISIT PHYS INC MODERATE SEVERITY EMERGENCY 15400 [facility], 9 9 JEFFY DANIELA Mills DEPARTMEN EMERGENCY T VISIT PHYS INC MODERATE SEVERITY HOSPITAL RAMÓN - 9 9 [facility] OUTPATIEN INC T EMERGENCY 44011 RAMÓN 9 9 [facility] DEPARTMEN INC T VISIT LOW/MODER SEVERITY EMERGENCY 23275 YARIEL OCHOA, 9 9 EMERGENCY [facility] DEPARTMEN SERVICES T VISIT MODERATE ASSOCIATE SEVERITY S HOSPITAL [facility] - 9 9 HOSPITAL OUTPATIEN T EMERGENCY 18784 [facility] 9 9 HOSPITAL DEPARTMEN T VISIT LOW/MODER SEVERITY EMERGENCY [address] [facility], 9 9 JEFFY Kai Martinez DEPARTMEN EMERGENCY T VISIT PHYS INC MODERATE SEVERITY EMERGENCY 40868 [facility] 9 9 HOSPITAL DEPARTMEN T VISIT LOW/MODER SEVERITY EMERGENCY 04847 [facility], 9 9 JEFFY DORIS Freeman DEPARTMEN EMERGENCY T VISIT PHYS INC MODERATE SEVERITY HOSPITAL [facility] - 9 9 HOSPITAL OUTPATIEN T EMERGENCY 43335 [facility], 9 9 JEFFY SARAH DEPARTMEN EMERGENCY A T VISIT PHYS INC MODERATE SEVERITY EMERGENCY 15523 YARIEL OCHOA, 9 9 EMERGENCY [facility] DEPARTMEN SERVICES T VISIT MODERATE ASSOCIATE SEVERITY S HOSPITAL RAMÓN - 9 9 [facility] OUTPATIEN INC T EMERGENCY 52945 RAMÓN 9 9 [facility] DEPARTMEN INC T VISIT LOW/MODER SEVERITY EMERGENCY 94203 [place] 9 9 [facility] T VISIT MODERATE SEVERITY [facility] T EMERGENCY 00950 RAMÓN 9 9 [facility] DEPARTMEN INC T VISIT LOW/MODER SEVERITY EMERGENCY 10477 YARIEL OCHOA, 9 9 EMERGENCY [facility] SERVICES T VISIT HIGH/URGE ASSOCIATE NT S SEVERITY HOSPITAL RAMÓN - 9 9 [facility] OUTPATIEN INC T EMERGENCY 07578 [facility] 9 9 JEFFY [facility] EMERGENCY T VISIT PHYS INC MODERATE SEVERITY OFFICE 66897 RAMON NAVARRO OUTPATIEN 9 9 LYNDSAY G LYNDSAY G T VISIT 15 MINUTES EMERGENCY 43469 [facility] T 9 9 [facility] EMERGENCY T VISIT PHYS INC MODERATE SEVERITY HOSPITAL JENNIFER - 9 9 [facility] T EMERGENCY 42970 [facility] 9 9 [facility] T VISIT LOW/MODER SEVERITY EM[facility]Y 07797 [facility] 9 JEFFY [facility] EMERGENCY T VISIT PHYS INC MODERATE SEVERITY EMERGENCY 44222 RAMÓN 9 9 [facility] DEPARTMEN INC T VISIT LOW/MODER SEVERITY EMERGENCY 42163 YARIEL OCHOA, 9 9 EMERGENCY [facility] SERVICES T VISIT MODERATE ASSOCIATE SEVERITY S HOSPITAL RAMÓN - 9 9 [facility] OUTPATIEN INC T EMERGENCY 98141 [facility] CHUY, T 9 9 [facility] EMERGENCY T VISIT PHYS INC MODERATE SEVERITY EMERGENCY 45978 RAMÓN 9 9 [facility] DEPARTMEN INC T VISIT LOW/MODER SEVERITY HOSPITAL RAMÓN - 9 9 [facility] OUTPATIEN INC T EMERGENCY 84824 [facility] T 9 9 [facility] EMERGENCY T VISIT PHYS INC MODERATE SEVERITY EMERGENCY 04442 YARIEL MUÑOZ, DEPT 9 9 EMERGENCY [facility] VISIT SERVICES HIGH SEVERITY& ASSOCIATE THREAT S FUNCJ EMERGENCY 25758 RAMÓN 9 9 MEM [facility] DEPARTMEN INC T VISIT MODERATE SEVERITY HOSPITAL RAMÓN - 9 9 [facility] OUTPATIEN INC T EMERGENCY 10723 [facility] 9 9 [facility] T VISIT LOW/MODER SEVERITY HOSPITAL [facility] - 9 9 [facility] T EMERGENCY 43358 [facility] 9 9 [facility] T VISIT LIMITED/M INOR PROB EMERGENCY 48248 [facility] RANDY, 9 9 JEFFY Dominguez [facility] EMERGENCY T VISIT PHYS INC MODERATE SEVERITY OFFICE 02868 [facility] 9 9 , QUITAQUITA Sawyer ION NEW/ESTAB PATIENT 60 MIN [facility]OS[facility]ITAL [facility] 9 9 [facility] T EMERGENCY 29651 [facility] CALDERON, 9 9 JEFFY Hdz [facility] EMERGENCY T VISIT PHYS INC MODERATE SEVERITY EMERGENCY 60879 [facility] 9 9 [facility] T VISIT LIMITED/M INOR PROB HOSPITAL [facility] 9 9 [facility] T EMERGENCY 16133 [facility] 9 9 [facility] T VISIT MODERATE SEVERITY HOSPITAL RAMÓN - 9 9 [facility] OUTPATIEN INC T EMERGENCY 18083 [facility] 9 9 [facility] T VISIT MODERATE SEVERITY EMERGENCY 39131 [facility], 9 9 JEFFY Mckeon [facility] EMERGENCY T VISIT PHYS INC LOW/MODER SEVERITY EMERGENCY 44171 YARIEL RICHARDSON, 9 9 EMERGENCY VALERIE Gomez [facility] SERVICES T VISIT MODERATE ASSOCIATE SEVERITY S EMERGENCY 89237 RAMÓN 9 9 [facility] T VISIT LIMITED/M INOR PROB HOSPITAL RAMÓN - 9 9 [facility] OUTPATIEN INC T EMERGENCY 47629 [facility] BOY 9 9 ANNITA PARKER [facility] T VISIT PHYS INC MODERATE SEVERITY EMERGENCY 00708 [facility] 9 9 [facility] T VISIT LIMITED/M INOR PROB HOSPITAL [facility] - 9 9 [facility] T EMERGENCY 70810 [facility], 9 9 JEFFY Mills DEPARTMEN EMERGENCY T VISIT PHYS INC MODERATE SEVERITY EMERGENCY 44968 [facility] 9 9 [facility] T VISIT LIMITED/M INOR PROB HOSPITAL [facility] - 9 9 [facility] T EMERGENCY 89262 [facility], 9 9 CORBIN Martinez [facility] SERV T VISIT FOUNDATIO MODERATE SEVERITY [facility] 9 9 [facility] T EMERGENCY 93195 [place] 9 9 [facility] T VISIT LOW/MODER SEVERITY EMERGENCY 06081 [facility], 9 9 JEFFY Mckeon DEPARTMEN EMERGENCY T VISIT PHYS INC MODERATE SEVERITY EMERGENCY 78532 [facility], 9 9 JEFFY Hdz DEPARTMEN EMERGENCY T VISIT PHYS INC MODERATE SEVERITY EMERGENCY 10862 [facility], 9 9 JEFFY Freeman DEPARTMEN EMERGENCY T VISIT PHYS INC MODERATE SEVERITY [facility] [place] - 9 9 [facility] UN[facility] - 9 9 [facility] T OFFICE 77288 RAMON NAVARRO, [facility] 9 9 LYNDSAY G LYNDSAY G T VISIT 15 MINUTES HOSPITAL [facility] - 9 9 [facility] T EMERGENCY 99651 [facility] 9 9 [facility] T VISIT HIGH/URGE NT SEVERITY EMERGENCY 42145 [facility] 8 8 JEFFY [facility] EM[facility]GENC[facility] T VISIT PHYS INC MODERATE SEVERITY [facility]OSPITAL [facility] 8 8 N [facility] OFFICE 18571 NAVARRO, NAVARRO, CONSULTAT 8 8 LYNDSAY G LYNDSAY G ION NEW/ESTAB PATIENT 60 MIN OFFICE 91811 CARDIOLOG DINO, CONSULTAT 8 8 Y EMILIE Mckeon ION ASSOCIATE NEW/ESTAB S OF PATIENT JENNIFER 60 MIN HOSPITAL RAMÓN - 8 8 [facility] T EMERGENCY 07146 [place] 8 8 [facility] T VISIT LOW/MODER SEVERITY EMERGENCY 39209 [facility] CELLAROSI DEPT 8 8 JEFFY - ABDIAS, VISIT EMERGENCY [facility] HIGH PHYS INC M SEVERITY& THREAT FUNCJ EMERGENCY 85965 [facility] 8 8 N [facility] T VISIT HOSPITAL HIGH/URGE NT SEVERITY [facility] 8 8 [facility] 55366 [facility], 8 8 JEFFY SARAH [facility] EMERGENCY A T VISIT PHYS INC MODERATE SEVERITY HOSPITAL [facility] - 8 8 [facility] EMERGENC[facility] 38700 [facility] 8 8 N [facility] VISIT HOSPITAL LOW/MODER SEVERITY OFFICE 04682 Timur AMIN CONSULTAT 8 8 MEDICAL D ION SERV NEW/ESTAB FOUNDATIO PATIENT [address] [facility], DEPT 8 8 JEFFY SARAH VISIT EMERGENCY A HIGH PHYS INC SEVERITY& THREAT FUNCJ EMERGENCY 98348 [facility] 8 8 Y [facility] T VISIT LIMITED/M INOR PROB EMERGENCY 44937 GRACIE WELLS 8 8 MEDICAL , C A [facility] SERV T VISIT FOUNDATIO MODERATE SEVERITY HOSPITAL [facility] - 8 8 Y [facility] T EMERGENCY 27076 [facility] 8 8 Y [facility] T VISIT HIGH/URGE NT SEVERITY HOSPITAL [facility] - 8 8 Y [facility] T EMERGENCY 30739 GRACIE LANGE 8 8 MEDICAL IMORELIA DEPARTMEN SERV A T VISIT FOUNDATIO MODERATE SEVERITY EMERGENCY 12359 [facility] HERMOSILLO, DEPT 8 8 JEFFY KIDD VISIT EMERGENCY HIGH PHYS INC SEVERITY& THREAT FUNCJ
--- OUTSIDE RECORDS SUMMARY | 2017-03-05 03:51 | External Medical Summary Rpt | CCD ---
Demographics Preferred Language Kyrgyz Marital Status Unknown Denominational Affiliation Unknown Race Unknown Ethnic Group Unknown Author Author , MP DEMPSEY Address Unknown Phone Immunization No patient found.
--- OUTSIDE RECORDS SUMMARY | 2017-03-05 03:51 | External Medical Summary Rpt | CCD ---
Demographics Preferred Language German Marital Status Unknown Moravian Affiliation Unknown Race Unknown Ethnic Group Unknown Author Author , MP DEMPSEY Address Unknown Phone Immunization No patient found.
--- OUTSIDE RECORDS SUMMARY | 2017-03-05 03:51 | External Medical Summary Rpt ---
Author Author [employer] Campos, [facility] Organization [employer] Address Unknown Phone Unavailable
[2017-03-05] MEDS ORDERED: PREDNISONE 20MG20 MG PO (03:53)
[2017-03-05 04:08] VITALS: BP 148/96
--- NOTE | 2017-03-05 05:39 | RADIOLOGY REPORT PS360 ---
KNEE-3 VIEWS-LT HISTORY: Left knee pain c/o bilateral knee pain ORDERING PHYSICIAN: Marleen Matthew MD PATIENT AGE: 41 years COMPARISON: None FINDINGS: No fracture or dislocation. No lytic or blastic change. Normal mineralization. No significant arthritic changes evident. No other significant findings IMPRESSION: Negative left Knee
--- NOTE | 2017-03-05 05:39 | RADIOLOGY REPORT PS360 ---
KNEE-3 VIEWS-RT HISTORY: Right knee pain c/o bilateral knee pain ORDERING PHYSICIAN: Marleen Matthew MD PATIENT AGE: 41 years COMPARISON: None FINDINGS: No fracture or dislocation. No lytic or blastic change. Normal mineralization. No significant arthritic changes evident. No other significant findings IMPRESSION: Negative right Knee
== END 2017-03-05 04:08 | disposition home or self-care (01) ==
LOC: ER 02:58
DX: M25.561 Pain in right knee (principal); M25.562 Pain in left knee; Z88.0 Allergy status to penicillin; Z91.040 Latex allergy status; I10 Essential (primary) hypertension; J45.909 Unspecified asthma, uncomplicated; K21.9 Gastro-esophageal reflux disease without esophagitis; F17.210 Nicotine dependence, cigarettes, uncomplicated

== ENCOUNTER 2017-03-30 19:36 | Emergency (ER) | payer MEDICAID ==
[~2017-03-30] VITALS: Ht 172.7 cm; Wt 102.1 kg
--- OUTSIDE RECORDS SUMMARY | 2017-03-30 20:08 | External Medical Summary Rpt | CCD ---
Author Author , ROSELYN DEMPSEY Address Unknown Phone [email or web address] Care Team Providers Care Cupola Melting Supervisor Name Role Phone Jimmie Gupta MD, Unavailable Unavailable Jimmie Sommers MD, Unavailable Unavailable Brenda Matthew MD, Unavailable Unavailable Marleen DENISE MD, Unavailable Unavailable NABIL DENISE MD Purpose Continuity of Care Document - 11-03-2012 through 2016 Problems Code Diagnosis DOS Provider Status G89.29 Other 03-30-2017 chronic pain I10 Essential 03-30-2017 (primary) hypertensio n M25.561 Pain in 03-30-2017 right knee M25.562 Pain in 03-30-2017 left knee M54.9 Dorsalgia, 03-30-2017 unspecified Z87.828 Personal 03-30-2017 history of other (healed) physical injury and trauma F41.9 ANXIETY 03-27-2017 DISORDER, UNSPECIFIED J44.9 CHRONIC 03-27-2017 OBSTRUCTIVE PULMONARY DISEASE, UNSPECIFIED M70.41 PREPATELLAR 03-27-2017 BURSITIS, RIGHT KNEE M70.52 OTHER 03-27-2017 BURSITIS OF KNEE, LEFT KNEE Z79.899 OTHER LONG 03-27-2017 TERM (CURRENT) DRUG THERAPY Z88.0 ALLERGY 03-27-2017 STATUS TO PENICILLIN Z88.8 ALLERGY 03-27-2017 STATUS TO OTHER DRUGS, MEDICAMENTS AND BIOLOGICAL SUBSTANCES STATUS F17.210 NICOTINE 03-11-2017 DEPENDENCE, CIGARETTES, UNCOMPLICAT ED R07.89 OTHER CHEST 03-11-2017 PAIN Z01.30 ENCOUNTER 03-11-2017 FOR EXAMINATION OF BLOOD PRESSURE WITHOUT ABNORMAL FINDINGS Z91.048 OTHER 03-11-2017 NONMEDICINA L SUBSTANCE ALLERGY STATUS J45.909 UNSPECIFIED 07-20-2016 ASTHMA, UNCOMPLICAT ED M79.601 PAIN IN 07-20-2016 RIGHT ARM Z88.6 ALLERGY 07-20-2016 STATUS TO ANALGESIC AGENT STATUS 305.1 305.1 05-15-2013 [place] TOBACCO USE [facility] DISORDER [facility] 401.9 401.9 05-15-2013 [place] HYPERTENSIO [facility] N NOS [facility] 466.0 466.0 ACUTE 05-15-2013 [place] BRONCHITIS [facility] 493.90 493.90 05-15-2013 [place] ASTHMA, [facility] UNSPECIFIED Hospital 780.39 780.39 05-15-2013 [place] OTHER [facility] CONVULSIONS Hospital 461.9 461.9 ACUTE 04-02-2013 [place] SINUSITIS [facility] V14.0 V14.0 04-02-2013 [place] HX-PENICILL [facility] IN ALLERGY Hospital 881.00 881.00 OPEN 03-13-2013 [place] WOUND OF [facility] E906.3 E906.3 03-13-2013 [place] ANIMAL BITE [facility] V12.04 V12.04 03-13-2013 [place] PERSONAL [facility] 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 V12.54 V12.54 03-13-2013 [facility] TIA,& Hospital CEREBRAL INFARCTION W/OUT RES DEFICITS V14.8 V14.8 03-13-2013 [place] HX-DRUG [facility] ALLERGY [facility] V15.09 V15.09 03-13-2013 [place] [facility] TO Hospital MEDICINAL AGENTS [facility] 704.8 704.8 HAIR 03-07-2013 [place] DISEASES [facility] V58.69 V58.69 OTH 03-07-2013 [place] MED,LT,CURR [facility] ENT USE Hospital 682.3 682.3 01-30-2013 [place] CELLULITIS [facility] OF ARM Hospital 413.9 413.9 11-03-2012 [place] ANGINA [facility] PECTORIS [facility] NEC/NOS 789.04 789.04 11-03-2012 [place] ABDOMINAL [facility] PAIN, LEFT Hospital LOWER QUADRANT B35.3 TINEA PEDIS B35.4 TINEA CORPORIS [id number] K43.9 VENTRAL HERNIA WITHOUT OBSTRUCTION OR GANGRENE K57.32 DVTRCLI OF LG INT W/O PERFORATION OR ABSCESS W/O BLEEDING K57.92 DVTRCLI OF INTEST, PART UNSP, W/O PERF OR ABSCESS W/O BLEED K62.5 HEMORRHAGE OF ANUS AND RECTUM L60.0 INGROWING NAIL L91.8 OTHER HYPERTROPHI C DISORDERS OF THE SKIN N45.1 EPIDIDYMITI S N50.8 OTHER SPECIFIED DISORDERS OF MALE GENITAL ORG * DO NOT USE * N50.811 RIGHT TESTICULAR PAIN N50.819 TESTICULAR PAIN, UNSPECIFIED R10.13 Epigastric pain S30.0XXA CONTUSION OF LOWER BACK AND PELVIS, INITIAL ENCOUNTER S70.01XA CONTUSION OF RIGHT HIP, INITIAL ENCOUNTER T14.8 OTHER INJURY OF UNSPECIFIED BODY REGION T14.8XXA OTHER INJURY OF UNSPECIFIED BODY REGION, INITIAL ENCOUNTER T30.0 BURN OF UNSPECIFIED BODY REGION, UNSPECIFIED DEGREE W54.0XXA BITTEN BY DOG, INITIAL ENCOUNTER Allergies, Adverse Reactions, Alerts Type Allergy to substance Drug Allergy Adverse Reaction to Substance Substance Reaction Severity CLEAR TAPE I-RASH Unknown Latex I-RASH Unknown ASA (aspirin) THROAT SWELLING Severe PCN (penicillin) I-HIVES Intermediate Naproxen Unknown Unknown Propoxyphene S-DIFF. BREATHING Intermediate Ibuprofen SWELLS THROAT Severe Latex I-RASH Unknown Medications Na ND Rx Da Fi Fi Am Da Di Ph RX Ph St me C No te ll ll ou ys ag ar # ys at rm s nt no ma ic us Or Da si cy ia de te s n re d Le 00 01 0 No vo 90 -0 fl 46 3- Lo ox 25 20 ng ac 06 14 er in 1 Ac 50 ti 0M ve G Ta bl et BE 57 01 0 No NZ 66 -0 ON 40 3- Lo AT 13 20 ng AT 38 14 er E 8 10 Ac 0 ti MG ve CA PS UL E AK 00 01 0 No ED 05 -0 [...] ti 0M ve G Ta bl et Vital Signs 04-02-2013 16:10 Name Value Interpretat [...] ed Ur Ql 22:50 E.U./dL Strip Nitrite 5862169 Negativ complet Ur Ql 017 09 e ed Strip 22:50 Negativ e SCT Leukocy [id number] Negativ complet te 017 09 e ed esteras 22:50 Negativ e Ur Ql e SCT Strip.a uto Prot Ur [id number] Negativ complet Ql 017 09 e ed Strip 22:50 Negativ e SCT Hgb Ur [id number] Negativ complet Ql 017 09 e ed Strip.a 22:50 Negativ uto e SCT Bilirub 0286100 Negativ complet Ur Ql 017 09 e ed Strip 22:50 Negativ e SCT Ketones [id number] Negativ complet Ur Ql 017 09 e ed Strip 22:50 Negativ e SCT Glucose 3026282 Negativ complet Ur 017 09 e ed Strip-m 22:50 Negativ Cnc e SCT Sp Gr 1.010 1.001-1 complet Ur 017 .030 ed Strip 22:50 pH Ur 6.0 5.0-8.0 complet Strip.a 017 ed uto 22:50 Clarity [id number] Clear complet Ur 017 01 ed 22:50 Clear SCT Color 9589016 Yellow, complet Ur 017 09 Straw ed [...] g/dL .5 ed c 22:38 RBC # 4.65 4.20-5. complet Bld 017 10*6/mm 76 [...] Auto 017 0 ed 22:38 RDW RBC -17-2 39.5 fl 37.0-54 complet Auto 017 .0 ed 22:38 RDW RBC -17-2 12.2 % 11.3-14 complet 017 .5 ed [...] complet AMORPH 013 ed SEDIMEN 01:07 T Encounters Encounter Start End Date Code Location Performer Type Date Emergency CORINNA Matthew MD (ER) 4 20:03 4 20:30 [facility] Emergency CORINNA Gupta MD (ER) 3 16:00 3 16:10 [facility] Emergency CORINNA DENISE (ER) 3 02:20 3 02:55 [facility] Emergency CORINNA Sommers MD (ER) 3 17:05 3 17:10 [facility] Emergency CORINNA Gupta MD (ER) 3 15:40 3 16:15 [facility] Emergency CORINNA Sommers MD (ER) 3 01:00 3 01:38 [facility]
--- OUTSIDE RECORDS SUMMARY | 2017-03-30 20:08 | External Medical Summary Rpt | CCD ---
Author Author [employer] Organization [employer] Address Unknown Phone Unavailable Purpose Continuity of Care Document - through 2016
--- OUTSIDE RECORDS SUMMARY | 2017-03-30 20:08 | External Medical Summary Rpt | CCD ---
Demographics Preferred Language Mongolian Marital Status Unknown Yazidism Affiliation Unknown Race Unknown Ethnic Group Unknown Author Author , MP DEMPSEY Address Unknown Phone Immunization No patient found.
--- OUTSIDE RECORDS SUMMARY | 2017-03-30 20:08 | External Medical Summary Rpt | CCD ---
Demographics Preferred Language Sinhala Marital Status Unknown Faith Affiliation Unknown Race Unknown Ethnic Group Unknown Author Author , MP DEMPSEY Address Unknown Phone Immunization No patient found.
--- OUTSIDE RECORDS SUMMARY | 2017-03-30 20:08 | External Medical Summary Rpt | CCD ---
Author Author , ROSELYN DEMPSEY Address Unknown Phone [email or web address] Care Team Providers Care Chemistry Quality Control Analyst Name Role Phone Jimmie Gupta MD, Unavailable [...] TO ANALGESIC AGENT STATUS 305.1 305.1 05-15-2013 [place] TOBACCO USE [facility] DISORDER [facility] 401.9 401.9 05-15-2013 [place] HYPERTENSIO [facility] N NOS [facility] 466.0 466.0 ACUTE 05-15-2013 [place] BRONCHITIS [facility] 493.90 493.90 05-15-2013 [place] ASTHMA, [facility] UNSPECIFIED Hospital 780.39 780.39 05-15-2013 [place] OTHER [facility] CONVULSIONS Hospital 461.9 461.9 ACUTE 04-02-2013 [place] SINUSITIS [facility] V14.0 V14.0 04-02-2013 [place] HX-PENICILL [facility] IN ALLERGY Hospital 881.00 881.00 OPEN 03-13-2013 [place] WOUND OF [facility] E906.3 E906.3 03-13-2013 [place] ANIMAL BITE [facility] V12.04 V12.04 03-13-2013 [place] PERSONAL [facility] 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 V12.54 V12.54 03-13-2013 [facility] TIA,& Hospital CEREBRAL INFARCTION W/OUT RES DEFICITS V14.8 V14.8 03-13-2013 [place] HX-DRUG [facility] ALLERGY [facility] V15.09 V15.09 03-13-2013 [place] [facility] TO Hospital MEDICINAL AGENTS [facility] 704.8 704.8 HAIR 03-07-2013 [place] DISEASES [facility] V58.69 V58.69 OTH 03-07-2013 [place] MED,LT,CURR [facility] ENT USE Hospital 682.3 682.3 01-30-2013 [place] CELLULITIS [facility] OF ARM Hospital 413.9 413.9 11-03-2012 [place] ANGINA [facility] PECTORIS [facility] NEC/NOS 789.04 789.04 11-03-2012 [place] ABDOMINAL [facility] PAIN, LEFT Hospital LOWER QUADRANT B35.3 TINEA PEDIS B35.4 TINEA CORPORIS [id number] K43.9 VENTRAL HERNIA WITHOUT OBSTRUCTION OR GANGRENE [...] ti MG ve CA PS UL E CT 00 01 0 No ED 05 -0 [...] ed Ur Ql 22:50 E.U./dL Strip Nitrite [id number] Negativ complet Ur Ql 017 09 e ed Strip 22:50 Negativ e SCT Leukocy 5609513 Negativ complet te 017 09 e ed esteras 22:50 Negativ e Ur Ql e SCT Strip.a uto Prot Ur 6870579 Negativ complet Ql 017 09 e ed Strip 22:50 Negativ e SCT Hgb Ur 8321210 Negativ complet Ql 017 09 e ed Strip.a 22:50 Negativ uto e SCT Bilirub [id number] Negativ complet Ur Ql 017 09 e ed Strip 22:50 Negativ e SCT Ketones 5224688 Negativ complet Ur Ql 017 09 e ed Strip 22:50 Negativ e SCT Glucose 3266433 Negativ complet Ur 017 09 e ed Strip-m 22:50 Negativ Cnc e SCT Sp Gr 1.010 1.001-1 complet Ur 017 .030 ed Strip 22:50 pH Ur 6.0 5.0-8.0 complet Strip.a 017 ed uto 22:50 Clarity 6342790 Clear complet Ur 017 01 ed 22:50 Clear SCT Color 4202422 Yellow, complet Ur 017 09 Straw ed [...] Matthew MD (ER) 4 20:03 4 20:30 [facility] Emergency CORINNA Gupta MD (ER) 3 16:00 3 16:10 [facility] Emergency CORINNA DENISE (ER) 3 02:20 3 02:55 [facility] Emergency CORINNA Sommers MD (ER) 3 17:05 3 17:10 [facility] Emergency CORINNA Gupta MD (ER) 3 15:40 3 16:15 [facility] Emergency CORINNA Sommers MD (ER) 3 01:00 3 01:38 [facility]
--- NOTE | 2017-03-30 20:45 | Emergency Room Report ---
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 N Clinical Suspician of Infection? N Mental Status: 1 - Regular (Normal Baseline) Sepsis Risk:Low Sepsis Risk Have you (or family members/close friends) recently traveled outside the [place]? N If Yes, where/when: Have you had exposure to infectious disease within the past month? N TB? Other? 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 No Angina: No AL: No Hypertension? Yes Hyperlipidemia? No CHF? No DVT? No PE? No COPD? No Asthma? Yes Anemia? Yes GERD? Yes Gastric ulcers? No GI Bleed? No Hernia? No Thyroid Problems? No Hypothyroidism? No CVA? Yes Seizures? No Diabetes? No Insulin Dependent: No Insulin Pump: No Home FSBS? No Renal Insuffiency? No End Stage Renal Disease? No UTI? No Stones? No BPH? No GB Disease: No Nephritic Syndrome? No Asplenia? No Hepatitis? No Sickle Cell Disease? No Arthritis? Yes Migraines? No Cataracts? No Glaucoma? No MRSA? Yes HIV? No TB? No Anxiety? No Depression? No Cancer? No More? No Immunization Hx DT/Tetanus 2011 Surgical Hx Previous Surgery?Y RECTAL CYST X2 JAW SURGERY BUTTOCK-CYSTS Dental Surgery UMBILICAL HERNIA REPAIR LEFT TESTICLE REMOVED Family History Family Hx Diabetes Yes Hyperlipidemia Yes Cancer Yes Social History Smoking Hx Smoker: Current Every Day Smoker Tobacco: Yes Type Cigarettes Packs/day < 1 Pack Alcohol Alcohol: No Drugs none Review of Systems All Other Systems Reviewed and Negative Constitutional denies fever Eyes denies drainage ENT denies: ear discharge, epistaxis, throat pain. Respiratory denies cough, denies shortness of breath, denies wheezing Cardiovascular denies chest pain, denies syncope Gastrointestinal denies abdominal pain, denies diarrhea, denies vomiting Genitourinary see HPI, scrotal/testicular pain. denies: dysuria, frequency, hesitancy, hematuria, penis pain, genital lesions. Musculoskeletal denies back pain, denies joint pain, denies joint swelling, denies neck pain Skin denies rash Psychiatric/Neurological denies headache, denies seizure Physical Exam Vital Signs Vital Signs Date Time Temp Pulse Resp B/P Pulse O2 O2 Flow FiO2 Ox Delivery Rate 03/30 1950 97.9 107 18 132/91 97 - WBC >12,000 or <4,000 or 10% bands? 2 or more SIRS Criteria Met? B/P:132/91 MAP:104 Creatinine >2.0? UA output<0.5ml/kg/hr for 2 hrs? Platelet count >100,000? Lactate >2.0mmol/1? INR >1.2 or PTT > than 60 sec? Evidence of Organ Dysfunction? Provider documented clinical suspician of infection? N Sepsis Criteria Count: 1 Sepsis Risk: Low Sepsis Risk General Appearance no apparent distress Eye Exam - bilateral eye PERRL, bilateral eye EOMI Ear, Nose, Throat normal ENT inspection Neck supple Respiratory Status No: respiratory distress. 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 No Results/Orders Orders Procedure Date/time Status URINALYSIS/COMPLETE 03/30 2045 Active US SCROTUM 03/30 2002 Active XRAY/CT/US XRAY/CT/US Ultrasound scrotal US Interpretation by discussed w/radiologist US results normal Departure Departure Time of Disposition 2105 Disposition DC Home or Self Care(routine) Clinical Impression Primary Impression: Testicular pain, right Condition STABLE Referrals CON PEGUERO APRN (Family) Patient Instructions DI for Testicular Pain Additional Instructions see pcp for follow up Discharge Counseling Counseled pt/family regarding diagnosis, test results, medications/RX, follow up needs Prescriptions Current Visit Scripts Ciprofloxacin HCl (Cipro 500MG TAB) 500 MG PO BID #14 TAB ED Critical Care Critical Care No at 2117
--- NOTE | 2017-03-30 20:45 | Emergency Room Report ---
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 N Clinical Suspician of Infection? N Mental Status: 1 - Regular (Normal Baseline) Sepsis Risk:Low Sepsis Risk Have you (or family members/close friends) recently traveled outside the [place]? N If Yes, where/when: Have you had exposure to infectious disease within the past month? N TB? Other? 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 No Angina: No NC: No Hypertension? Yes Hyperlipidemia? No CHF? No DVT? No PE? No COPD? No Asthma? Yes Anemia? Yes GERD? Yes Gastric ulcers? No GI Bleed? No Hernia? No Thyroid Problems? No Hypothyroidism? No CVA? Yes Seizures? No Diabetes? No Insulin Dependent: No Insulin Pump: No Home FSBS? No Renal Insuffiency? No End Stage Renal Disease? No UTI? No Stones? No BPH? No GB Disease: No Nephritic Syndrome? No Asplenia? No Hepatitis? No Sickle Cell Disease? No Arthritis? Yes Migraines? No Cataracts? No Glaucoma? No MRSA? Yes HIV? No TB? No Anxiety? No Depression? No Cancer? No More? No Immunization Hx DT/Tetanus 2011 Surgical Hx Previous Surgery?Y RECTAL CYST X2 JAW SURGERY BUTTOCK-CYSTS Dental Surgery UMBILICAL HERNIA REPAIR LEFT TESTICLE REMOVED Family History Family Hx Diabetes Yes Hyperlipidemia Yes Cancer Yes Social History Smoking Hx Smoker: Current Every Day Smoker Tobacco: Yes Type Cigarettes Packs/day < 1 Pack Alcohol Alcohol: No Drugs none Review of Systems All Other Systems Reviewed and Negative Constitutional denies fever Eyes denies drainage ENT denies: ear discharge, epistaxis, throat pain. Respiratory denies cough, denies shortness of breath, denies wheezing Cardiovascular denies chest pain, denies syncope Gastrointestinal denies abdominal pain, denies diarrhea, denies vomiting Genitourinary see HPI, scrotal/testicular pain. denies: dysuria, frequency, hesitancy, hematuria, penis pain, genital lesions. Musculoskeletal denies back pain, denies joint pain, denies joint swelling, denies neck pain Skin denies rash Psychiatric/Neurological denies headache, denies seizure Physical Exam Vital Signs Vital Signs Date Time Temp Pulse Resp B/P Pulse O2 O2 Flow FiO2 Ox Delivery Rate 03/30 1950 97.9 107 18 132/91 97 - WBC >12,000 or <4,000 or 10% bands? 2 or more SIRS Criteria Met? B/P:132/91 MAP:104 Creatinine >2.0? UA output<0.5ml/kg/hr for 2 hrs? Platelet count >100,000? Lactate >2.0mmol/1? INR >1.2 or PTT > than 60 sec? Evidence of Organ Dysfunction? Provider documented clinical suspician of infection? N Sepsis Criteria Count: 1 Sepsis Risk: Low Sepsis Risk General Appearance no apparent distress Eye Exam - bilateral eye PERRL, bilateral eye EOMI Ear, Nose, Throat normal ENT inspection Neck supple Respiratory Status No: respiratory distress. 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 No Results/Orders Orders Procedure Date/time Status URINALYSIS/COMPLETE 03/30 2045 Active US SCROTUM 03/30 2002 Active XRAY/CT/US XRAY/CT/US Ultrasound scrotal US Interpretation by discussed w/radiologist US results normal Departure Departure Time of Disposition 2105 Disposition DC Home or Self Care(routine) Clinical Impression Primary Impression: Testicular pain, right Condition STABLE Referrals CON PEGUERO APRN (Family) Patient Instructions DI for Testicular Pain Additional Instructions see pcp for follow up Discharge Counseling Counseled pt/family regarding diagnosis, test results, medications/RX, follow up needs Prescriptions Current Visit Scripts Ciprofloxacin HCl (Cipro 500MG TAB) 500 MG PO BID #14 TAB ED Critical Care Critical Care No at 2117
[2017-03-30] MEDS ORDERED: CIPRO 500MG TA500 MG PO (21:17)
[2017-03-30 21:23] LABS: URINE BILIRUBIN - DIPSTICK NEGATIVE (NEG); URINE BLOOD NEGATIVE (NEG)
[2017-03-30 21:29] VITALS: BP 132/91
--- NOTE | 2017-04-01 15:22 | RADIOLOGY REPORT PS360 ---
US SCROTUM Ordering Physician: Marleen Matthew MD Patient Age: 41 years: Male HISTORY: RIGHT SWOLLEN TESTICLE, LT TEST SURGICALLY ABSENTleft testicle pain TECHNIQUE: Ultrasound scrotum COMPARISON : Previous ultrasound left testicle, last year at this time 03/29/2016 . FINDINGS: There has been a LEFT orchiectomy.. Surgically absent. Right testicle measures 3.6 cm x 3.3 cm x 2.2 cm. The right testicle appears within normal limits with normal flow no mass lesion. Slightly generous head of epididymis conceivably could reflect epididymitis but nonspecific. Clinical correlation required. Measures ~2 cm cm x 1.1 cm maximally. No increased fluid right testicle.. No hydrocele IMPRESSIONkl left testicle, surgically removed. Remaining right testicle itself appears normal-with normal color Doppler flow. No torsion. No lesion Generous size head of right epididymis. Nonspecific but could reflect epididymitis. Clinical question but unimpressive.
== END 2017-03-30 21:30 | disposition home or self-care (01) ==
LOC: ER 19:36
PROVIDERS: Emergency Medicine
DX: N50.811 Right testicular pain (principal); F17.210 Nicotine dependence, cigarettes, uncomplicated; Z88.0 Allergy status to penicillin; Z88.6 Allergy status to analgesic agent; Z91.040 Latex allergy status; I10 Essential (primary) hypertension; J45.909 Unspecified asthma, uncomplicated; D64.9 Anemia, unspecified; K21.9 Gastro-esophageal reflux disease without esophagitis